=== PATIENT | male | born 1955 | race Caucasian/White ===

== ENCOUNTER 2024-04-06 08:52 | Outpatient (OUT) | payer OTHER, SELFPAY ==
--- NOTE | 2024-04-06 09:30 | V.VEINS.HP ---
Vital Signs 04/06/24 09:49 Height 5 ft 10 in Weight 122.47 kg BMI 38.7 BP 120/54 BP Location Left Brachial BP Position Sitting BP Cuff Size Adult BP Source Manual Cuff Respiration 20 Pulse 77 Pulse Source Monitor Pulse Oximetry (%) 96 Oxygen Delivery Method Room Air Comment The patient's blood pressure is elevated. Varicose Veins Patient in this day for comprehensive exam for painful bilateral varicose veins. Pain exacerbated by long periods of walking. Swelling in right leg greater than left leg. Patient has worn compression stockings for the past 2 years. 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 Guillermo Smith MD personally performed the services described in this documentation, as scribed by Destini Carlin RN in my presence and it is both accurate and complete. IDestini RN, am scribing for, and in the presence of, Dr. Guillermo Gurrola and in the presence of the patient. thigh: bilateral, knee: bilateral, calf: bilateral, ankle: bilateral and delaney: bilateral aching and dull 3 2 years Worsened in recent months: Yes walking elevating extremities and compression stockings Reports heaviness, restless legs, limb pain, edema and leg edema History of lower extremity trauma: No Superficial thrombophlebitis: No Family history of varicose veins: no Has patient had previous lower extremity venous surgery: No Patient has previously received the following treatment(s) for lower extremity varicose veins: Reports none Does patient have a history of : not applicable Does patient intend to have future pregnancies: not applicable Has patient had lower extremity venous scan with relux testing: Yes Support hose used: Yes Problems walking or doing physical activity: Yes How does it affect you: unable to walk long distances Do you walk much: No Do you stand much: Yes Medication compliance: good Review of Systems ROS Narrative Guillermo Smith MD personally performed the services described in this documentation, as scribed by Destini Carlin RN in my presence and it is both accurate and complete. Destini Smith RN, am scribing for, and in the presence of, Dr. Guillermo Gurrola and in the presence of the patient. Status of ROS 10 or more systems reviewed and unremarkable except as noted in history and below Cardiovascular Reports: edema and swelling of feet/ankles Musculoskeletal Reports: extremity pain, extremity swelling, joint pain, joint swelling and muscle cramps Integumentary/Breast Reports: rash, itching and redness PFSH PFS Medical History (Updated 04/06/24 @ 10:03 by Destini Cralin, RN) Hemorrhoids, internal ?K64.8 - Other hemorrhoids (ICD-10) Pain due to varicose veins of both lower extremities ?I83.813 - Varicose veins of bilateral lower extremities with pain (ICD-10) Tinea pedis ?B35.3 - Tinea pedis (ICD-10) Sleep apnea ?G47.30 - Sleep apnea, unspecified (ICD-10) Restless leg ?G25.81 - Restless legs syndrome (ICD-10) Onychomycosis ?B35.1 - Tinea unguium (ICD-10) Obesity ?E66.9 - Obesity, unspecified (ICD-10) Left ventricular failure ?I50.1 - Left ventricular failure, unspecified (ICD-10) Hypokalemia ?E87.6 - Hypokalemia (ICD-10) Hyperglycemia ?R73.9 - Hyperglycemia, unspecified (ICD-10) Hyperlipemia ?E78.5 - Hyperlipidemia, unspecified (ICD-10) Accelerated essential hypertension ?I10 - Essential (primary) hypertension (ICD-10) Elevated PSA ?R97.20 - Elevated prostate specific antigen [PSA] (ICD-10) Cardiomyopathy ?I42.9 - Cardiomyopathy, unspecified (ICD-10) Anxiety ?F41.9 - Anxiety disorder, unspecified (ICD-10) Surgical History (Updated 04/06/24 @ 10:03 by Destini Carlin, SHUKRI) S/P TURP ?Z90.79 - Acquired absence of other genital organ(s) (ICD-10) Family History (Updated 04/06/24 @ 10:04 by Destini Carlin, RN) Other Family history of CHF (congestive heart failure) Family history of cancer Family history of hypertension Family history of myocardial infarction Social History (Updated 04/06/24 @ 10:05 by Destini Carlin, RN) Within the past year, how often did you have a drink containing alcohol: never Score interpretation: A score less than 4 is consistent with normal alcohol consumption. Smoking status: Never smoker Non-prescribed substance use: denies use Meds Home Medications and Allergies Home Medications ?Medication ?Instructions ?Recorded ?Confirmed ?Type amiloride 5 mg tablet 5 mg PO DAILY 04/06/24 04/06/24 History amlodipine 10 mg tablet 10 mg PO DAILY 04/06/24 04/06/24 History aspirin 325 mg tablet 325 mg PO DAILY 04/06/24 04/06/24 History carvedilol 25 mg tablet (Coreg) 25 mg PO BID 04/06/24 04/06/24 History doxazosin 4 mg tablet (Cardura) 4 mg PO QPM 04/06/24 04/06/24 History finasteride 5 mg tablet 5 mg PO DAILY 04/06/24 04/06/24 History hydralazine .Route DAILY 04/06/24 History hydrochlorothiazide 25 mg tablet 25 mg PO DAILY 04/06/24 04/06/24 History losartan 100 mg tablet 100 mg PO DAILY 04/06/24 04/06/24 History lovastatin 30 mg PO QAM 04/06/24 04/06/24 History montelukast 10 mg tablet 10 mg PO DAILY 04/06/24 04/06/24 History niacin 500 mg capsule,extended 500 mg PO DAILY 04/06/24 04/06/24 History release paroxetine HCl 20 mg tablet 20 mg PO DAILY 04/06/24 04/06/24 History potassium chloride 10 mEq 10 meq PO DAILY 04/06/24 04/06/24 History tablet,extended release (Klor-Con) Allergies Allergy/AdvReac Type Severity Reaction Status Date / Time clarithromycin Allergy Unknown Unknown Verified 04/06/24 09:39 Exam Narrative Exam Narrative: Guillermo Smith MD personally performed the services described in this documentation, as scribed by Destini Carlin RN in my presence and it is both accurate and complete. IDestini RN, am scribing for, and in the presence of, Dr. Guillermo Gurrola and in the presence of the patient. Constitutional Documenting provider has reviewed patient's vital signs: yes Common normals: oriented x3 Nutritional appearance: overweight Lymph Lymphatic: no lymphedema noted Cardio Peripheral pulses: posterior tibial pulses present and dorsalis pedis pulses present Extremity General: calf tenderness, edema and other findings Right lower extremity: lower leg Right lower leg: inspection and palpation Left lower extremity: lower leg Left lower leg: inspection and palpation Neuro Common normals: oriented x3 Assessment and Plan Assessment and Plan (1) Pain due to varicose veins of both lower extremities: Plan Explained vein anatomy and physiology to patient.? Explained the development of varicose veins to patient.? Explained varicose vein treatments to patient, including laser ablation, microfoam chemical ablation (Varithena), injection sclerotherapy and microphlebectomy.? Explained potential risks and benefits of varicose vein treatments. Patient verbalizes understanding and wants to pursue varicose vein treatment. Patient also agrees to purchase bilateral thigh high compression stockings and wear them as educated.? Patient also educated on exercise and rest elevation of bilateral legs. DVT noted on ultrasound. Spoke with Bianca from Dr. Elyssa Christine's office (stitcher tape controlled machine for patients PCP Dr. Liliana Waller) and updated her on patients DVT find today. Bianca states she will talk to Dr. Christine and call patient later today for care plan. Educated patient on worsening symptoms of DVT and when to seek immediate medical attention. Patient verbalizes understanding. Scheduled to return on? 04/20/24 for ultrasound results and consult with Dr Gurrola. Guillermo Smith MD personally performed the services described in this documentation, as scribed by Destini Carlin RN in my presence and it is both accurate and complete. Destini Smith RN, am scribing for, and in the presence of, Dr. Guillermo Gurrola and in the presence of the patient.
--- NOTE | 2024-04-06 09:32 | VEIN_ITS ---
Patient Name: RACHEL NGUYEN MR#: [id number] : 1955 Exam Date: 04/06/2024 Ordering Doctor: DR HENNY JACK D.P.M. RADIOLOGY REPORT PROCEDURE: VC EXT VENOUS REFLUX HU LMTD COMPARISON: None. INDICATIONS: Pain due to varicose veins of bilateral legs I83.813 TECHNIQUE: Duplex imaging of the lower extremity to assess the deep and superficial venous system for the presence of deep or superficial venous incompetence and to document the location and severity of disease. The study includes evaluation of the great saphenous vein (GSV), anterior accessory saphenous vein (AASV) and small saphenous vein (SSV). Patient scanned in reverse Trendelenburg and standing. FINDINGS: RIGHT LOWER EXTREMITY: Saphenofemoral Junction Reflux: Yes 12.9mm 3.3 sec GSV: Diam (mm) Reflux/ Time (sec) Proximal Thigh 9.4 Yes 2.1 Mid Thigh 8.9 Yes 4.4 Distal Thigh 6.9 Yes 4.4 Prox Calf 6.7 Yes 2.4 Mid Calf 5.0 No Saphenopopliteal Junction Reflux: 5.7mm Yes 0.9 SSV: Proximal Calf 6.6 Yes 3.9 Mid Calf 4.9 Yes 0.3 AASV: Not present Proximal Thigh Mid Thigh Distal Thigh Thrombi: Subacute thrombus in gastroc vein in approximately a 3 cm segment. Compressibility: Partial compression of gastroc vein. Flow: Mild to moderate deep venous reflux. Preforator: Prox/medial lower leg 5.9mm with 0.7s reflux. Mid medial lower leg 4.7 mm with 3.0s reflux. Tech Note: Incompetent varicose vein proximal medial lower leg measures 5.7 mm with 2.5s reflux. Varicose vein distal medial lower leg measures 4.3mm with 0.9s reflux. Varicose vein proximal medial lower leg measures 5.0 mm with 0.7s reflux. LEFT LOWER EXTREMITY: Saphenofemoral Junction Reflux: Yes 12.5 mm 2.2 sec GSV: Diam (mm) Reflux/Time (sec) Proximal Thigh 12.3 Yes 1.2 Mid Thigh 7.3 Yes 2.5 Distal Thigh 7.7 Yes 3.9 Prox Calf 6.3 No Mid Calf 4.7 Yes 1.0 Saphenopopliteal Junction Relux: 5.6 mm Yes 1.2 SSV: Proximal Calf 8.4 Yes 0.5 Mid Calf 7.9 Yes 0.5 AASV: Proximal Thigh 5.9 Yes 1.8 Mid Thigh 2.3 No Distal Thigh Thrombi: No acute or chronic thrombus. Compressibility: Normal. Flow: Mild to moderate deep venous reflux. Visually Impaired Teacher: Mid posterior calf 6.4 mm with 2.0s reflux. Tech Note: Incompetent varicose vein proximal medial lower leg measures 5.7 mm with 3.6s reflux. Varicose vein distal medial lower leg measures 4.4 mm with 0.7s reflux. CONCLUSION: 1. Right leg abnormally dilated and incompetent great saphenous vein, small saphenous vein, and numerous branch saphenous varicosities. 2. Left leg abnormally dilated and incompetent great saphenous vein, small saphenous vein, anterior accessory saphenous vein, and associated branch saphenous varicosities. 3. Subacute short segment of thrombus within right gastrocnemius vein. 4. Consultation for endovenous ablation is recommended. Dictated by: Rahul Pedro M.D. on 04/10/2024 at 13:44 Approved by: Rahul Pedro M.D. on 04/10/2024 at 13:52
[2024-04-06 09:49] VITALS: BP 120/54; PULSE 77; O2SAT 96; BMI 38.7
--- NOTE | 2024-04-06 10:58 | P.DS_ITS ---
Discharge Plan Discharge Disposition: Home, Self-Care Outpatient Diagnostics: VC Facility EST Comprehensive (Routine) Timeframe: 2 Weeks Facility: [facility] - Location: [facility] Ordered By: Guillermo Gurrola Follow Up Appointments: 04/20/24 f/u with physician Plan of Treatment: DVT management by Dr. Elyssa Christine. Print Language: Uzbek Discharge Date/Time: 04/06/24 10:58
== END 2024-04-06 10:58 | disposition home or self-care (01) ==
LOC: VC 08:52
PROVIDERS: PCP Podiatrist Foot & Ankle Surgery; Visit Provider Podiatrist Foot & Ankle Surgery
DX: I83.813 Varicose veins of bilateral lower extremities with pain (principal); I87.2 Venous insufficiency (chronic) (peripheral)
CPT/HCPCS: 93970

== ENCOUNTER 2024-04-20 08:48 | Outpatient (OUT) | payer OTHER, SELFPAY ==
--- NOTE | 2024-04-20 08:51 | VEIN_ITS ---
Patient Name: RACHEL NGUYEN MR#: [id number] : 1955 Exam Date: 04/20/2024 Ordering Doctor: DR GUILLERMO GURROLA M.D. RADIOLOGY REPORT PROCEDURE: [facility] VEIN C[facility] - OFFICE VISIT INITIAL COMPARISON: None. PROGRESS NOTES: 69-year-old male who presents with a long history of lower extremity pain and swelling, significantly increased in the past 2 years. 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 The patient describes lower extremity pain as moderate, progressing over the course of the day , the pain is a heaviness and achiness which is partially relieved by rest, leg elevation and compression stockings which she has worn for approximately 2 years. The patient denies any signs and symptoms to suggest arterial ischemia. The patient describes a family history significant for congestive heart failure, cancer, hypertension and myocardial infarction. Patient's past medical history significant for hemorrhoids, sleep apnea, restless leg, obesity a, left ventricular failure, hyperkalemia, hyperglycemia, hyperlipidemia, hypertension and cardiomyopathy. The patient's heart conditions are well controlled and he is seen by Dr. Ontiveros. The patient does not drink alcohol. The patient has never smoked. No substance abuse. No history of deep venous thrombus or pulmonary embolus. See separate history and physical for medication list. No prior treatment for varicose or spider veins. Nursing notes were reviewed. After history and physical exam I discussed at length the pathophysiology of venous hypertension and possible treatments, therapies and strategies available. We discussed at length the importance of elevating the lower extremities above the level of the heart, increased physical activity and compression stocking use. We discussed alternatives including conservative therapy with 20-30 or even 30-40 mm compression stockings. We discussed surgical alternatives of ligation stripping and phlebectomy. We discussed intravenous laser ablation, micro foam chemical ablation at length. Risks benefits and alternatives were discussed with the patient. I did discuss with the patient that his symptoms were likely multifactorial. I would expect improvement with successful treatment of his veins however likely not complete resolution Ultrasound venous reflux study performed April 10, 2024 was discussed at length with the patient. The report demonstrates severe bilateral great saphenous vein venous insufficiency with dilatation and saphenofemoral junction reflux. Severe right and mild to moderate left small saphenous vein venous insufficiency with saphenopopliteal junction reflux. Moderate venous insufficiency left anterior accessory saphenous vein. Bilateral [id number] deep vein reflux. Bilateral incompetent perforating veins. Extensive bilateral varicose veins. PHYSICAL EXAM: The right leg demonstrates severe subcutaneous edema with pitting edema of the lower leg ankle and foot below the knee. Some scattered hemosiderin staining is observed. No significant varicose or reticular veins The left leg demonstrates severe subcutaneous edema with pitting edema of the lower leg, ankle and foot below the knee. Some scattered hemosiderin staining is observed. No significant varicose or reticular veins Both thighs, legs and feet were symmetrically warm to the touch. Good posterior tibial and dorsalis pedis pulses were present bilaterally. VEIN/VC Facility EST Comprehensive IMPRESSION: 1. Bilateral great saphenous, right small saphenous and left anterior accessory saphenous vein venous insufficiency with dilatation and associated saphenofemoral/saphenopopliteal junction reflux 2. Bilateral lower extremity varicose veins as well as deep vein reflux 3. Bilateral severe lower extremity subcutaneous edema 4. No definite flow significant arterial disease 5. CEAP: C4a, Ep, As, Pr PLAN: 1. Endovenous laser ablation right great saphenous vein followed by left great saphenous vein followed by right small saphenous vein followed by left anterior accessory saphenous vein 2. Possible intravenous laser ablation of incompetent perforating veins 3. Micro foam chemical ablation bilateral incompetent varicose veins 4. Long-term use of bilateral 20-30 mm compression stockings for deep vein reflux and subcutaneous edema 5. Leg elevation and increased physical activity/weight loss for symptomatic relief 6. Nurse notes, history and physical were reviewed and confirmed, see attached forms. The nurse was present throughout the physical exam and consultation Dictated by: Guillermo Gurrola MD on 04/20/2024 at 11:14 Approved by: Guillermo Gurrola MD on 04/20/2024 at 11:23
--- NOTE | 2024-04-20 09:24 | V.VEINS.HP ---
Vital Signs 04/20/24 09:25 BP 120/64 BP Location Left Brachial BP Position Sitting BP Cuff Size Adult BP Source Manual Cuff Respiration 18 Pulse 70 Pulse Source Monitor Pulse Oximetry (%) 96 Oxygen Delivery Method Room Air Comment The patient's blood pressure is elevated. Varicose Veins Patient in this day for comprehensive exam with physician for painful bilateral varicose veins. Pain exacerbated by long periods of walking. Swelling in right leg greater than left leg. Patient has worn compression stockings for the past 2 years. 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 Guillermo Smith MD personally performed the services described in this documentation, as scribed by Destini Carlin RN in my presence and it is both accurate and complete. IDestini RN, am scribing for, and in the presence of, Dr. Guillermo Gurrola and in the presence of the patient. thigh: bilateral, knee: bilateral, calf: bilateral, ankle: bilateral and delaney: bilateral aching and dull 3 2 years Worsened in recent months: Yes walking elevating extremities and compression stockings Reports heaviness, restless legs, limb pain, edema and leg edema History of lower extremity trauma: No Superficial thrombophlebitis: No Family history of varicose veins: no Has patient had previous lower extremity venous surgery: No Patient has previously received the following treatment(s) for lower extremity varicose veins: Reports none Does patient have a history of : not applicable Does patient intend to have future pregnancies: not applicable Has patient had lower extremity venous scan with relux testing: Yes Support hose used: Yes Problems walking or doing physical activity: Yes How does it affect you: unable to walk long distances Do you walk much: No Do you stand much: Yes Medication compliance: good Review of Systems ROS Narrative Guillermo Smith MD personally performed the services described in this documentation, as scribed by Destini Carlin RN in my presence and it is both accurate and complete. Destini Smith RN, am scribing for, and in the presence of, Dr. Guillermo Gurrola and in the presence of the patient. Status of ROS 10 or more systems reviewed and unremarkable except as noted in history and below Cardiovascular Reports: edema and swelling of feet/ankles Musculoskeletal Reports: extremity pain, extremity swelling, joint pain, joint swelling and muscle cramps Integumentary/Breast Reports: rash, itching and redness PFSH PFSH Medical History (Updated 04/06/24 @ 10:03 by Destini Carlin, RN) Hemorrhoids, internal ?K64.8 - Other hemorrhoids (ICD-10) Pain due to varicose veins of both lower extremities ?I83.813 - Varicose veins of bilateral lower extremities with pain (ICD-10) Tinea pedis ?B35.3 - Tinea pedis (ICD-10) Sleep apnea ?G47.30 - Sleep apnea, unspecified (ICD-10) Restless leg ?G25.81 - Restless legs syndrome (ICD-10) Onychomycosis ?B35.1 - Tinea unguium (ICD-10) Obesity ?E66.9 - Obesity, unspecified (ICD-10) Left ventricular failure ?I50.1 - Left ventricular failure, unspecified (ICD-10) Hypokalemia ?E87.6 - Hypokalemia (ICD-10) Hyperglycemia ?R73.9 - Hyperglycemia, unspecified (ICD-10) Hyperlipemia ?E78.5 - Hyperlipidemia, unspecified (ICD-10) Accelerated essential hypertension ?I10 - Essential (primary) hypertension (ICD-10) Elevated PSA ?R97.20 - Elevated prostate specific antigen [PSA] (ICD-10) Cardiomyopathy ?I42.9 - Cardiomyopathy, unspecified (ICD-10) Anxiety ?F41.9 - Anxiety disorder, unspecified (ICD-10) Surgical History (Updated 04/06/24 @ 10:03 by Destini Carlin, SHUKRI) S/P TURP ?Z90.79 - Acquired absence of other genital organ(s) (ICD-10) Family History (Updated 04/06/24 @ 10:04 by Destini Carlin, RN) Other Family history of CHF (congestive heart failure) Family history of cancer Family history of hypertension Family history of myocardial infarction Social History (Updated 04/06/24 @ 10:05 by Destini Carlin, RN) Within the past year, how often did you have a drink containing alcohol: never Score interpretation: A score less than 4 is consistent with normal alcohol consumption. Smoking status: Never smoker Non-prescribed substance use: denies use Meds Home Medications and Allergies Home Medications ?Medication ?Instructions ?Recorded ?Confirmed ?Type amiloride 5 mg tablet 5 mg PO DAILY 04/06/24 04/06/24 History amlodipine 10 mg tablet 10 mg PO DAILY 04/06/24 04/06/24 History aspirin 325 mg tablet 325 mg PO DAILY 04/06/24 04/06/24 History carvedilol 25 mg tablet (Coreg) 25 mg PO BID 04/06/24 04/06/24 History doxazosin 4 mg tablet (Cardura) 4 mg PO QPM 04/06/24 04/06/24 History finasteride 5 mg tablet 5 mg PO DAILY 04/06/24 04/06/24 History hydralazine .Route DAILY 04/06/24 History hydrochlorothiazide 25 mg tablet 25 mg PO DAILY 04/06/24 04/06/24 History losartan 100 mg tablet 100 mg PO DAILY 04/06/24 04/06/24 History lovastatin 30 mg PO QAM 04/06/24 04/06/24 History montelukast 10 mg tablet 10 mg PO DAILY 04/06/24 04/06/24 History niacin 500 mg capsule,extended 500 mg PO DAILY 04/06/24 04/06/24 History release paroxetine HCl 20 mg tablet 20 mg PO DAILY 04/06/24 04/06/24 History potassium chloride 10 mEq 10 meq PO DAILY 04/06/24 04/06/24 History tablet,extended release (Klor-Con) Allergies Allergy/AdvReac Type Severity Reaction Status Date / Time clarithromycin Allergy Unknown Unknown Verified 04/06/24 09:39 Exam Narrative Exam Narrative: IGuillermo MD personally performed the services described in this documentation, as scribed by Destini Carlin RN in my presence and it is both accurate and complete. IDestini RN, am scribing for, and in the presence of, Dr. Guillermo Gurrola and in the presence of the patient. Constitutional Documenting provider has reviewed patient's vital signs: yes Common normals: oriented x3 Nutritional appearance: overweight Lymph Lymphatic: no lymphedema noted Cardio Peripheral pulses: posterior tibial pulses present and dorsalis pedis pulses present Extremity General: calf tenderness, edema and other findings Right lower extremity: lower leg Right lower leg: inspection and palpation Left lower extremity: lower leg Left lower leg: inspection and palpation Neuro Common normals: oriented x3 Assessment and Plan Assessment and Plan Plan Explained vein anatomy and physiology to patient. Explained the development of varicose veins to patient.? Explained varicose vein treatments to patient, including laser ablation, microfoam chemical ablation (Varithena), injection sclerotherapy and microphlebectomy.? Explained potential risks and benefits of varicose vein treatments.? Patient verbalizes understanding and wants to pursue varicose vein treatment.? Dr. Gurrola examines patient and reviews results of bilateral leg reflux u/s.? Patient and Dr. Gurrola creates a plan of care.?Plan is EVLT x4 starting with right GSV then bilateral microfoam chemical ablation. Patient also agrees to purchase bilateral thigh high compression stockings and wear them as educated.? Patient also educated on exercise and rest elevation of bilateral legs. Will call patient to scheduled when approved by insurance. I, Guillermo Gurrola MD personally performed the services described in this documentation, as scribed by Destini Carlin RN in my presence and it is both accurate and complete. I, Destini Carlin RN, am scribing for, and in the presence of, Dr. Guillermo Gurrola and in the presence of the patient.
[2024-04-20 09:25] VITALS: BP 120/64; PULSE 70; O2SAT 96
--- NOTE | 2024-04-20 09:40 | W.VEIN ---
Discharge Plan Discharge Disposition: Home, Self-Care Discharge Medications: No Action amiloride 5 mg tablet 5 mg PO DAILY amlodipine 10 mg tablet 10 mg PO DAILY aspirin 325 mg tablet 325 mg PO DAILY carvedilol [Coreg] 25 mg tablet 25 mg PO BID Rx Instructions: must administer with a meal/food doxazosin [Cardura] 4 mg tablet 4 mg PO QPM finasteride 5 mg tablet 5 mg PO DAILY hydralazine .Route DAILY hydrochlorothiazide 25 mg tablet 25 mg PO DAILY losartan 100 mg tablet 100 mg PO DAILY lovastatin 30 mg PO QAM montelukast 10 mg tablet 10 mg PO DAILY niacin 500 mg capsule, extended release 500 mg PO DAILY paroxetine HCl 20 mg tablet 20 mg PO DAILY potassium chloride [Klor-Con 10] 10 mEq tablet extended release 10 meq PO DAILY Follow Up Appointments: Will call patient to schedule Print Language: Japanese Discharge Date/Time: 04/20/24 09:42
--- NOTE | 2024-04-20 09:43 | V.VEINS.HP ---
Vital Signs 04/20/24 09:25 BP 120/64 BP Location Left Brachial BP Position Sitting BP Cuff Size Adult BP Source Manual Cuff Respiration 18 Pulse 70 Pulse Source Monitor Pulse Oximetry (%) 96 Oxygen Delivery Method Room Air Comment The patient's blood pressure is elevated. [facility] Medical History (Updated 04/06/24 @ 10:03 by Destini Carlin, RN) Hemorrhoids, internal ?K64.8 - Other hemorrhoids (ICD-10) Pain due to varicose veins of both lower extremities ?I83.813 - Varicose veins of bilateral lower extremities with pain (ICD-10) Tinea pedis ?B35.3 - Tinea pedis (ICD-10) Sleep apnea ?G47.30 - Sleep apnea, unspecified (ICD-10) Restless leg ?G25.81 - Restless legs syndrome (ICD-10) Onychomycosis ?B35.1 - Tinea unguium (ICD-10) Obesity ?E66.9 - Obesity, unspecified (ICD-10) Left ventricular failure ?I50.1 - Left ventricular failure, unspecified (ICD-10) Hypokalemia ?E87.6 - Hypokalemia (ICD-10) Hyperglycemia ?R73.9 - Hyperglycemia, unspecified (ICD-10) Hyperlipemia ?E78.5 - Hyperlipidemia, unspecified (ICD-10) Accelerated essential hypertension ?I10 - Essential (primary) hypertension (ICD-10) Elevated PSA ?R97.20 - Elevated prostate specific antigen [PSA] (ICD-10) Cardiomyopathy ?I42.9 - Cardiomyopathy, unspecified (ICD-10) Anxiety ?F41.9 - Anxiety disorder, unspecified (ICD-10) Surgical History (Updated 04/06/24 @ 10:03 by Destini Carlin, RN) S/P TURP ?Z90.79 - Acquired absence of other genital organ(s) (ICD-10) Family History (Updated 04/06/24 @ 10:04 by Destini Carlin, RN) Other Family history of CHF (congestive heart failure) Family history of cancer Family history of hypertension Family history of myocardial infarction Social History (Updated 04/06/24 @ 10:05 by Destini Carlin, RN) Within the past year, how often did you have a drink containing alcohol: never Score interpretation: A score less than 4 is consistent with normal alcohol consumption. Smoking status: Never smoker Non-prescribed substance use: denies use Meds Home Medications and Allergies Home Medications ?Medication ?Instructions ?Recorded ?Confirmed ?Type amiloride 5 mg tablet 5 mg PO DAILY 04/06/24 04/06/24 History amlodipine 10 mg tablet 10 mg PO DAILY 04/06/24 04/06/24 History aspirin 325 mg tablet 325 mg PO DAILY 04/06/24 04/06/24 History carvedilol 25 mg tablet (Coreg) 25 mg PO BID 04/06/24 04/06/24 History doxazosin 4 mg tablet (Cardura) 4 mg PO QPM 04/06/24 04/06/24 History finasteride 5 mg tablet 5 mg PO DAILY 04/06/24 04/06/24 History hydralazine .Route DAILY 04/06/24 History hydrochlorothiazide 25 mg tablet 25 mg PO DAILY 04/06/24 04/06/24 History losartan 100 mg tablet 100 mg PO DAILY 04/06/24 04/06/24 History lovastatin 30 mg PO QAM 04/06/24 04/06/24 History montelukast 10 mg tablet 10 mg PO DAILY 04/06/24 04/06/24 History niacin 500 mg capsule,extended 500 mg PO DAILY 04/06/24 04/06/24 History release paroxetine HCl 20 mg tablet 20 mg PO DAILY 04/06/24 04/06/24 History potassium chloride 10 mEq 10 meq PO DAILY 04/06/24 04/06/24 History tablet,extended release (Klor-Con) Allergies Allergy/AdvReac Type Severity Reaction Status Date / Time clarithromycin Allergy Unknown Unknown Verified 04/06/24 09:39 Exam Constitutional Vital Signs, click to edit/add: Last Vital Signs Pulse 70 04/20/24 09:25 Resp 18 04/20/24 09:25 BP 120/64 04/20/24 09:25 Pulse Ox 96 04/20/24 09:25 Assessment and Plan Assessment and Plan Plan Explained vein anatomy and physiology to patient. Explained the development of varicose veins to patient.? Explained varicose vein treatments to patient, including laser ablation, microfoam chemical ablation (Varithena), injection sclerotherapy and microphlebectomy.? Explained potential risks and benefits of varicose vein treatments.? Patient verbalizes understanding and wants to pursue varicose vein treatment.? Dr. Gurrola examines patient and reviews results of bilateral leg reflux u/s.? Patient and Dr. Gurrola creates a plan of care.?Plan is EVLT x4 starting with right GSV then bilateral microfoam chemical ablation. Patient also agrees to purchase bilateral thigh high compression stockings and wear them as educated.? Patient also educated on exercise and rest elevation of bilateral legs. Will call patient to scheduled when approved by insurance. I, Guillermo Gurrola MD personally performed the services described in this documentation, as scribed by Destini Carlin RN in my presence and it is both accurate and complete. I, Destini Carlin RN, am scribing for, and in the presence of, Dr. Guillermo Gurrola and in the presence of the patient.
--- NOTE | 2024-04-20 09:43 | W.VEIN ---
Discharge Plan Discharge Disposition: Home, Self-Care Outpatient Diagnostics: VC Endovenous Ablation 1VeinRT (Routine) Timeframe: 2 Months Facility: [facility] - Location[facility] Ordered By: Guillermo Gurrola Follow Up Appointments: Will call patient to schedule Print Language: Portuguese Discharge Date/Time: 04/20/24 09:42
--- NOTE | 2024-04-20 09:47 | VEINCLINIC_ITS ---
Vital Signs 04/20/24 09:25 04/20/24 09:44 Height 5 ft 10 in Weight 122 kg BP 120/64 BP Location Left Brachial BP Position Sitting BP Cuff Size Adult BP Source Manual Cuff Respiration 18 Pulse 70 Pulse Source Monitor Pulse Oximetry (%) 96 Oxygen Delivery Method Room Air Comment The patient's blood pressure is elevated. Varicose Veins Patient in this day for comprehensive exam with physician for painful bilateral varicose veins. Pain exacerbated by long periods of walking. Swelling in right leg greater than left leg. Patient has worn compression stockings for the past 2 years. 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 Guillermo Smith MD personally performed the services described in this documentation, as scribed by Destini Carlin RN in my presence and it is both accurate and complete. IDestini RN, am scribing for, and in the presence of, Dr. Guillermo Gurrola and in the presence of the patient. thigh: bilateral, knee: bilateral, calf: bilateral, ankle: bilateral and delaney: bilateral aching and dull 3 2 years Worsened in recent months: Yes walking elevating extremities and compression stockings Reports heaviness, restless legs, limb pain, edema and leg edema History of lower extremity trauma: No Superficial thrombophlebitis: No Family history of varicose veins: no Has patient had previous lower extremity venous surgery: No Patient has previously received the following treatment(s) for lower extremity varicose veins: Reports none Does patient have a history of : not applicable Does patient intend to have future pregnancies: not applicable Has patient had lower extremity venous scan with relux testing: Yes Support hose used: Yes Problems walking or doing physical activity: Yes How does it affect you: unable to walk long distances Do you walk much: No Do you stand much: Yes Medication compliance: good Review of Systems ROS Narrative Guillermo Smith MD personally performed the services described in this documentation, as scribed by Destini Carlin RN in my presence and it is both accurate and complete. Destini Smith RN, am scribing for, and in the presence of, Dr. Guillermo Gurrola and in the presence of the patient. Status of ROS 10 or more systems reviewed and unremark able except as noted in history and below Cardiovascular Reports: edema and swelling of feet/ankles Musculoskeletal Reports: extremity pain, extremity swelling, joint pain, joint swelling and muscle cramps Integumentary/Breast Reports: rash, itching and redness [facility] Medical History (Updated 04/06/24 @ 10:03 by Destini Carlin, RN) Hemorrhoids, internal ?K64.8 - Other hemorrhoids (ICD-10) Pain due to varicose veins of both lower extremities ?I83.813 - Varicose veins of bilateral lower extremities with pain (ICD-10) Tinea pedis ?B35.3 - Tinea pedis (ICD-10) Sleep apnea ?G47.30 - Sleep apnea, unspecified (ICD-10) Restless leg ?G25.81 - Restless legs syndrome (ICD-10) Onychomycosis ?B35.1 - Tinea unguium (ICD-10) Obesity ?E66.9 - Obesity, unspecified (ICD-10) Left ventricular failure ?I50.1 - Left ventricular failure, unspecified (ICD-10) Hypokalemia ?E87.6 - Hypokalemia (ICD-10) Hyperglycemia ?R73.9 - Hyperglycemia, unspecified (ICD-10) Hyperlipemia ?E78.5 - Hyperlipidemia, unspecified (ICD-10) Accelerated essential hypertension ?I10 - Essential (primary) hypertension (ICD-10) Elevated PSA ?R97.20 - Elevated prostate specific antigen [PSA] (ICD-10) Cardiomyopathy ?I42.9 - Cardiomyopathy, unspecified (ICD-10) Anxiety ?F41.9 - Anxiety disorder, unspecified (ICD-10) Surgical History (Updated 04/06/24 @ 10:03 by Destini Carlin, SHUKRI) S/P TURP ?Z90.79 - Acquired absence of other genital organ(s) (ICD-10) Family History (Updated 04/06/24 @ 10:04 by Destini Carlin, RN) Other Family history of CHF (congestive heart failure) Family history of cancer Family history of hypertension Family history of myocardial infarction Social History (Updated 04/06/24 @ 10:05 by Destini Carlin, RN) Within the past year, how often did you have a drink containing alcohol: never Score interpretation: A score less than 4 is consistent with normal alcohol consumption. Smoking status: Never smoker Non-prescribed substance use: denies use Meds Home Medications and Allergies Home Medications ?Medication ?Instructions ?Recorded ?Confirmed ?Type amiloride 5 mg tablet 5 mg PO DAILY 04/06/24 04/06/24 History amlodipine 10 mg tablet 10 mg PO DAILY 04/06/24 04/06/24 History aspirin 325 mg tablet 325 mg PO DAILY 04/06/24 04/06/24 History carvedilol 25 mg tablet (Coreg) 25 mg PO BID 04/06/24 04/06/24 History doxazosin 4 mg tablet (Cardura) 4 mg PO QPM 04/06/24 04/06/24 History finasteride 5 mg tablet 5 mg PO DAILY 04/06/24 04/06/24 History hydralazine .Route DAILY 04/06/24 History hydrochlorothiazide 25 mg tablet 25 mg PO DAILY 04/06/24 04/06/24 History losartan 100 mg tablet 100 mg PO DAILY 04/06/24 04/06/24 History lovastatin 30 mg PO QAM 04/06/24 04/06/24 History montelukast 10 mg tablet 10 mg PO DAILY 04/06/24 04/06/24 History niacin 500 mg capsule,extended 500 mg PO DAILY 04/06/24 04/06/24 History release paroxetine HCl 20 mg tablet 20 mg PO DAILY 04/06/24 04/06/24 History potassium chloride 10 mEq 10 meq PO DAILY 04/06/24 04/06/24 History tablet,extended release (Klor-Con) Allergies Allergy/AdvReac Type Severity Reaction Status Date / Time clarithromycin Allergy Unknown Unknown Verified 04/06/24 09:39 Exam Narrative Exam Narrative: IGuillermo MD personally performed the services described in this documentation, as scribed by Destini Carlin RN in my presence and it is both accurate and complete. Destini Smith RN, am scribing for, and in the presence of, Dr. Guillermo Gurrola and in the presence of the patient. Constitutional Vital Signs, click to edit/add: Last Vital Signs Pulse 70 04/20/24 09:25 Resp 18 04/20/24 09:25 BP 120/64 04/20/24 09:25 Pulse Ox 96 04/20/24 09:25 Documenting provider has reviewed patient's vital signs: yes Common normals: oriented x3 Nutritional appearance: overweight Lymph Lymphatic: no lymphedema noted Cardio Peripheral pulses: posterior tibial pulses present and dorsalis pedis pulses present Extremity General: calf tenderness, edema and other findings Right lower extremity: lower leg Right lower leg: inspection and palpation Left lower extremity: lower leg Left lower leg: inspection and palpation Neuro Common normals: oriented x3 Results Additional Findings Additional findings: Bilateral reflux venous ultrasound reveals Bilateral GSV, Right SSV, and left AASV venous insufficiency with dilation and reflux. Ultrasound also reveals subcutaneous edema. Assessment and Plan Assessment and Plan (1) Pain due to varicose veins of both lower extremities: Plan Explained vein anatomy and physiology to patient. Explained the development of varicose veins to patient.? Explained varicose vein treatments to patient, including laser ablation, microfoam chemical ablation (Varithena), injection sclerotherapy and microphlebectomy.? Explained potential risks and benefits of varicose vein treatments.? Patient verbalizes understanding and wants to pursue varicose vein treatment.? Dr. Gurrola examines patient and reviews results of bilateral leg reflux u/s.? Patient and Dr. Gurrola creates a plan of care.?Plan is EVLT x4 starting with right GSV then bilateral microfoam chemical ablation. Patient also agrees to purchase bilateral thigh high compression stockings and wear them as educated.? Patient also educated on exercise and rest elevation of bilateral legs. Will call patient to scheduled when approved by insurance. IGuillermo MD personally performed the services described in this documentation, as scribed by Destini Carlin RN in my presence and it is both accurate and complete. IDestini RN, am scribing for, and in the presence of, Dr. Guillermo Gurrola and in the presence of the patient.
== END 2024-04-20 09:42 | disposition home or self-care (01) ==
PROVIDERS: PCP Podiatrist Foot & Ankle Surgery; Visit Provider Podiatrist Foot & Ankle Surgery
DX: I83.813 Varicose veins of bilateral lower extremities with pain (principal)
CPT/HCPCS: G0463

== ENCOUNTER 2024-05-04 07:53 | Outpatient (OUT) | payer OTHER, SELFPAY ==
--- NOTE | 2024-05-03 09:18 | VEINCLINIC_ITS ---
Vital Signs 05/04/24 08:38 05/04/24 08:47 Height 5 ft 10 in Weight 122 kg BP 142/78 H BP Location Right Brachial BP Position Sitting BP Cuff Size Adult BP Source Automatic Cuff Respiration 18 Pulse 71 Pulse Source Monitor Pulse Oximetry (%) 98 Comment The patient's blood pressure is elevated. Varicose Veins Patient in this day for EVLT of right GSV Rahul Smith MD personally performed the services described in this documentation, as scribed by Gerald Lopez RN in my presence and it is both accurate and complete. Gerald Smith RN, am scribing for, and in the presence of, Dr. Rahul Pedro and in the presence of the patient. thigh: bilateral, knee: bilateral, calf: bilateral, ankle: bilateral and delaney: bilateral aching and dull 3 2 years Worsened in recent months: Yes walking elevating extremities and compression stockings Reports heaviness, restless legs, limb pain, edema and leg edema History of lower extremity trauma: No Superficial thrombophlebitis: No Family history of varicose veins: no Has patient had previous lower extremity venous surgery: No Patient has previously received the following treatment(s) for lower extremity varicose veins: Reports none Does patient have a history of : not applicable Does patient intend to have future pregnancies: not applicable Has patient had lower extremity venous scan with relux testing: Yes Support hose used: Yes Problems walking or doing physical activity: Yes How does it affect you: unable to walk long distances Do you walk much: No Do you stand much: Yes Medication compliance: good Review of Systems ROS Narrative Rahul Smith MD personally performed the services described in this documentation, as scribed by Gerald Lopez RN in my presence and it is both accurate and complete. Gerald Smith RN, am scribing for, and in the presence of, Dr. Rahul Pedro and in the presence of the patient. Status of ROS 10 or more systems reviewed and unremark able except as noted in history and below Cardiovascular Reports: edema and swelling of feet/ankles Musculoskeletal Reports: extremity pain, extremity swelling, joint pain, joint swelling and muscle cramps Integumentary/Breast Reports: rash, itching and redness PFSH PFSH Medical History (Updated 04/06/24 @ 10:03 by Destini Carlin RN) Hemorrhoids, internal ?K64.8 - Other hemorrhoids (ICD-10) Pain due to varicose veins of both lower extremities ?I83.813 - Varicose veins of bilateral lower extremities with pain (ICD-10) Tinea pedis ?B35.3 - Tinea pedis (ICD-10) Sleep apnea ?G47.30 - Sleep apnea, unspecified (ICD-10) Restless leg ?G25.81 - Restless legs syndrome (ICD-10) Onychomycosis ?B35.1 - Tinea unguium (ICD-10) Obesity ?E66.9 - Obesity, unspecified (ICD-10) Left ventricular failure ?I50.1 - Left ventricular failure, unspecified (ICD-10) Hypokalemia ?E87.6 - Hypokalemia (ICD-10) Hyperglycemia ?R73.9 - Hyperglycemia, unspecified (ICD-10) Hyperlipemia ?E78.5 - Hyperlipidemia, unspecified (ICD-10) Accelerated essential hypertension ?I10 - Essential (primary) hypertension (ICD-10) Elevated PSA ?R97.20 - Elevated prostate specific antigen [PSA] (ICD-10) Cardiomyopathy ?I42.9 - Cardiomyopathy, unspecified (ICD-10) Anxiety ?F41.9 - Anxiety disorder, unspecified (ICD-10) Surgical History (Updated 05/04/24 @ 08:41 by Gerald Lopez) Status post laser ablation of incompetent vein ?Z98.890 - Other specified postprocedural states (ICD-10) S/P TURP ?Z90.79 - Acquired absence of other genital organ(s) (ICD-10) Family History (Updated 04/06/24 @ 10:04 by Destini Carlin RN) Other Family history of CHF (congestive heart failure) Family history of cancer Family history of hypertension Family history of myocardial infarction Social History (Updated 04/06/24 @ 10:05 by Destini Carlin RN) Within the past year, how often did you have a drink containing alcohol: never Score interpretation: A score less than 4 is consistent with normal alcohol consumption. Smoking status: Never smoker Non-prescribed substance use: denies use Meds Home Medications and Allergies Home Medications ?Medication ?Instructions ?Recorded ?Confirmed ?Type amiloride 5 mg tablet 5 mg PO DAILY 04/06/24 04/06/24 History amlodipine 10 mg tablet 10 mg PO DAILY 04/06/24 04/06/24 History aspirin 325 mg tablet 325 mg PO DAILY 04/06/24 04/06/24 History carvedilol 25 mg tablet (Coreg) 25 mg PO BID 04/06/24 04/06/24 History doxazosin 4 mg tablet (Cardura) 4 mg PO QPM 04/06/24 04/06/24 History finasteride 5 mg tablet 5 mg PO DAILY 04/06/24 04/06/24 History hydralazine .Route DAILY 04/06/24 History hydrochlorothiazide 25 mg tablet 25 mg PO DAILY 04/06/24 04/06/24 History losartan 100 mg tablet 100 mg PO DAILY 04/06/24 04/06/24 History lovastatin 30 mg PO QAM 04/06/24 04/06/24 History montelukast 10 mg tablet 10 mg PO DAILY 04/06/24 04/06/24 History niacin 500 mg capsule,extended 500 mg PO DAILY 04/06/24 04/06/24 History release paroxetine HCl 20 mg tablet 20 mg PO DAILY 04/06/24 04/06/24 History potassium chloride 10 mEq 10 meq PO DAILY 04/06/24 04/06/24 History tablet,extended release (Klor-Con) apixaban 5 mg tablet (Eliquis) 5 mg PO BID 05/04/24 05/04/24 History Allergies Allergy/AdvReac Type Severity Reaction Status Date / Time clarithromycin Allergy Unknown Unknown Verified 04/06/24 09:39 Home Medications and Allergies Allergies Allergy/AdvReac Type Severity Reaction Status Date / Time clarithromycin Allergy Unknown Unknown Verified 04/06/24 09:39 Home Medications ?Medication ?Instructions ?Recorded ?Confirmed ?Type amiloride 5 mg tablet 5 mg PO DAILY 04/06/24 04/06/24 History amlodipine 10 mg tablet 10 mg PO DAILY 04/06/24 04/06/24 History aspirin 325 mg tablet 325 mg PO DAILY 04/06/24 04/06/24 History carvedilol 25 mg tablet (Coreg) 25 mg PO BID 04/06/24 04/06/24 History doxazosin 4 mg tablet (Cardura) 4 mg PO QPM 04/06/24 04/06/24 History finasteride 5 mg tablet 5 mg PO DAILY 04/06/24 04/06/24 History hydralazine .Route DAILY 04/06/24 History hydrochlorothiazide 25 mg tablet 25 mg PO DAILY 04/06/24 04/06/24 History losartan 100 mg tablet 100 mg PO DAILY 04/06/24 04/06/24 History lovastatin 30 mg PO QAM 04/06/24 04/06/24 History montelukast 10 mg tablet 10 mg PO DAILY 04/06/24 04/06/24 History niacin 500 mg capsule,extended 500 mg PO DAILY 04/06/24 04/06/24 History release paroxetine HCl 20 mg tablet 20 mg PO DAILY 04/06/24 04/06/24 History potassium chloride 10 mEq 10 meq PO DAILY 04/06/24 04/06/24 History tablet,extended release (Klor-Con) apixaban 5 mg tablet (Eliquis) 5 mg PO BID 05/04/24 05/04/24 History Home medications comment: Eliquis recently added Exam Narrative Exam Narrative: Rahul Smith MD personally performed the services described in this documentation, as scribed by Gerald Lopez RN in my presence and it is both accurate and complete. Gerald Smith RN, am scribing for, and in the presence of, Dr. Rahul Pedro and in the presence of the patient. Constitutional Vital Signs, click to edit/add: Last Vital Signs Pulse 70 04/20/24 09:25 Resp 18 04/20/24 09:25 BP 120/64 04/20/24 09:25 Pulse Ox 96 04/20/24 09:25 Documenting provider has reviewed patient's vital signs: yes Common normals: oriented x3 Nutritional appearance: overweight Lymph Lymphatic: no lymphedema noted Cardio Peripheral pulses: posterior tibial pulses present and dorsalis pedis pulses present Extremity General: calf tenderness, edema and other findings Right lower extremity: lower leg Right lower leg: inspection and palpation Left lower extremity: lower leg Left lower leg: inspection and palpation Neuro Common normals: oriented x3 Assessment and Plan Assessment and Plan (1) Pain due to varicose veins of both lower extremities: Plan f/u examination with physician along with right leg limited u/s Rahul Smith MD personally performed the services described in this documentation, as scribed by Gerald Lopez RN in my presence and it is both accurate and complete. I, Gerald Lopez RN, am scribing for, and in the presence of, Dr. Rahul Pedro and in the presence of the patient. Procedures Procedure Instructions Procedures Plan of care: Risks and benefits of the procedure were discussed at length and informed written consent was obtained.? Time-out completed for verification of correct patient, procedure and site.? Staff present during time-out: Gerald Lopez RN,? Rahul Pedro MD, Jane Farris [facility]. Time Out Time__841 Patient prepped and procedure performed in usual sterile fashion. Risk of injury related to use of Diode laser and/or laser devices__CR___ ? Serial number of laser used :? [id number] Control panel self test performed, electrical cords in good condition, floor is dry, basin of water available, fire extinguisher in close proximity_CR__ Polycarbonate goggles available and Laser warning signs outside of doors___CR__ Eye protection provided to patient and staff in room_CR___ Use of laser retardant drapes and dull blackened instruments as directed__CR___ Use of nonflammable prep solutions and use of saline soaked sponges to protect tissues as indicated _CR___ Length _68 cm Laser operated by _Dr. Pedro Physician verbal confirmation laser locked in place__CR__ Laser start time (date and time) __05/04/2024@_0858 Laser stop time(date and time) __05/04/2024@_0911 Burroughs _8.0___ Average laser use __4393 Joules Average laser use___549 seconds Pulse continuous ___CR_? Pulse intermittent ___ Amount of Tumescent used _350cc Evaluated patient for signs and symptoms of electrical injury __CR___ ? Skin clear at insertion site __CR___ Patient tolerated procedure well.? Right leg Coban dressing applied to access site.? Applied Right thigh high leg compression stocking. Will return on 05/11/2024 for right leg limited venous ultrasound and exam. IRahul MD personally performed the services described in this documentation, as scribed by Gerald Lopez RN in my presence and it is both accurate and complete. IGerald RN, am scribing for, and in the presence of, Dr. Rahul Pedro and in the presence of the patient.
--- NOTE | 2024-05-03 09:21 | W.VEIN ---
Discharge Plan Discharge Disposition: Home, Self-Care Outpatient Diagnostics: VC Facility EST LMTD (Routine) Timeframe: 2 Weeks Facility: [facility] - Location: [facility] Ordered By: Rahul Pedro VC EXT Venous RT LMTD (Routine) Timeframe: 2 Weeks Facility: [facility] - Location: Vein Center Ordered By: Rahul Pedro Follow Up Appointments: 05/11/2024 Plan of Treatment: f/u evaluation with physician along with right leg limited u/s Patient Instructions: Endovenous Ablation (DC) Print Language: Ma[place] Discharge Date/Time: 05/04/24 08:50
[2024-05-04] MEDS: LIDOCAINE HCL 1% 100 MG/10 ML MDV INJ (07:54)
[2024-05-04] MEDS: 0.9 % SODIUM CHLORIDE 500 ML, LIDOCAINE HCL 20 ML, SODIUM BICARBONATE 10 MEQ INJ (07:54)
--- NOTE | 2024-05-04 07:54 | VEIN_ITS ---
[address] [address] Patient Name: RACHEL NGUYEN MRN: [id number] date: 1955 Sex: M Assigned Patient Location: Current Patient Location: Accession/Order Number: [id number] Exam Date: 05/04/2024 08:05 Report Date: 05/04/2024 10:48 At the request of: LUIS MALIK Procedure: VC Endovenous Ablation 1VeinRT EXAMINATION: VC Endovenous Ablation 1VeinRT HISTORY: I83.813 - Varicose veins of bilateral lower extremities w... The risks and benefits of the procedure had been previously discussed, and were rediscussed at length. Informed written consent was obtained. Gerald Lopez RN and Jane Sprague RDMS assisted. Time out procedure was performed. The right lower extremity was prepared and draped in the usual sterile fashion to allow knee flexion in the sterile field. Duplex ultrasound probe was draped in a sterile cover, sterile transmission gel was used. Venous mapping was performed with the areas of dilation and large tributaries marked. The total length was 68 cm from the entry 3 cm above the ankle to 3 cm below the Saphenofemoral junction. The diameter of the right great saphenous vein ranged from 9.4 mm. A 30 gauge needle and 1% buffered lidocaine was used to anesthetize the entry site. A 4 mm incision was made with a scalpel and the saphenous vein was entered percutaneously under direct ultrasound guidance with a micropuncture set, a single stick was successful in gaining access. A micro-guide wire was inserted and the needle removed. A micro-set including a dilator was inserted over the microwire and the needle and dilator were removed. A guide wire was inserted through the micro-set and guided through the saphenous vein to the saphenofemoral junction. The dilator was removed and an introducer sheath was inserted over the wire until the end of the sheath entered the saphenofemoral junction. The dilator and wire were removed and the 600 micron fiber was introduced and placed and positioned so that it extended beyond the sheath and was 3 cm distal to the saphenofemoral or saphenopopliteal junction. Final position of the fiber was determined by ultrasound guidance and duplex imaging. Tumescent anesthetic was delivered by ultrasound guidance. 350 cc of fluid was delivered along the entire course of the saphenous vein. The solution consisted of 1000 cc of normal saline with 40 mL of 1% lidocaine and 20 mL of sodium bicarbonate. A final positioning check was made. The energy source was turned on by means of the foot pedal and the fiber and sheath were withdrawn. The total number of Joules delivered was 4393. The laser was active for 549 seconds under continuous pulse, average laser use of 8 J. Laser start time: 8:58 AM Laser stop time: 9:11 AM Date: 05/04/2024. A duplex ultrasound revealed compressibility and flow at the saphenofemoral junction immediately after the procedure. Hemostasis at the access site was achieved. The skin incision of the saphenous vein was closed with a 4 x 4. A compression stocking was applied. Postop instructions were given. A follow up appointment was recommended and scheduled. The patient tolerated the procedure well. Electronically authenticated by: MARY RATLIFF Date: 05/04/2024 10:48
--- OUTSIDE RECORDS SUMMARY | 2024-05-04 07:56 | XMS_ITS | CCD ---
Author Organization [facility] Care Team Providers Care Loom Setter Name Role Phone Mecca Nelsonaret Unavailable Unavailable Posola Danyell Unavailable Unavailable [facility] Unavailable Unavailable Mecca Nelsonaret Unavailable Unavailable Darius Nelsont Unavailable Unavailable Terri Santos Unavailable Unavailable Terri Santos Unavailable Chriss Marie Unavailable Unavailable Terri Santos Unavailable Unavailable Unavailable Terri Santos Primary Care Physician MD Terri Santos Primary Care Provider MD Luiz Morrison Attending Provider MD Burak Rangel Attending Provider Burak Rangel Unavailable MD Terri Santos Primary Care Provider MD Luiz Morrison Attending Provider [phone] Terri Santos DO Primary Care Provider Dr. Terri Santos Primary Care Unava ilable Weston, Dr. Delores Fajardo Referring Jessie vailable Ac, Dr. Delores Fajardo Attending Jessie vailable Weston, Dr. Delores Fajardo Attending Jessie vailable Dr. Terri Santos Primary Care Unava ilable Weston, Dr. Delores Fajardo Referring Jessie vailable Luiz Morrison Admitting Unavailable Luiz Morrison Attending Unavailable Allsop, Terri Primary Care Unavailable Luiz Morrison Admitting Unavailable MorrisonLuiz Attending Unavailable Allsop, Terri Primary Care Unavailable Luiz Morrison Admitting Unavailable MorrisonLuiz Attending Unavailable Allsop, Terri Primary Care Unavailable Burak Rangel Admitting Unavailable Burak Rangel Attending Unavailable Terri Santos Primary Care Unavailable MD Terri Santos Primary Care Provider MD Burak Rangel Attending Provider ALLSOP, TERRI Margarette Primary Care Unavailable JOSSELIN DECKER Attending Unavailable CATRACHITO BARTON Referring Unavailabl e Allsop Terri STONE Primary Care Provider Luiz MORRISON Attending Unavailable MORRISONLuiz R Attending Unavailable Allsop, Terri D Admitting Unavailable Allsop, Terri Pfeiffer Attending Unavailable Allsop, Terri Pfeiffer Admitting Unavailable Allsop, Terri Pfeiffer Attending Unavailable Allsop, Terri Pfeiffer Referring Unavailable MORRISONLuiz Attending Unavailable MORRISONLuiz R Admitting Unavailable Allsop, Terri D Admitting Unavailable Allsop, Terri Pfeiffer Attending Unavailable DOLCE, ADAM Pfeiffer Attending Unavailable ALLSOP, TERRI Pfeiffer Attending Unavailable DOLCE, ADAM Pfeiffer Attending Unavailable ALLSOP, TERRI Pfeiffer Attending Unavailable ALLSOP, TERRI Pfeifefr Attending Unavailable DOLCE, ADAM Pfeiffer Attending Unavailable DOLCE, ADAM Pfeiffer Attending Unavailable GUNNAR ADLER Attending Unavailable DELORES AC Attending Unavailable ALLSOP, TERRI HENDERSONNE Primary Care Unavailab le Allergies Allergy Classification Reported Allergen(s) Allergy Type Date of Onset Reaction(s) Facility Macrolides (antibiotic) (1 source) Clarithromycin Drug Allergy Unknown [facility] (1 source) No Known Medication Allergies; Translations: [No Known Medication Allergies] Propensity to adverse reactions to drug (disorder) [facility] (9 sources) shellfish, unspecified Allergy to substance (finding) [facility] 600 DO Work Phone: (14 sources) Clarithromycin; Translations: [clarithromycin] Drug Allergy Unknown [facility] [place] (2 sources) Shellfish; Translations: [SHELLFISH CONTAINING PRODUCTS] Drug Allergy 3 Swelling [facility] (2 sources) Shellfish; Translations: [SHELLFISH DERIVED] Propensity to adverse reactions 4 Other [facility] Medications Current Medications Medication Drug Class(es) Dates Sig (Normalized) Sig (Original) acetaminophen 325 mg / HYDROcodone bitartrate 7.5 mg oral tablet (2 sources) Opioid Agonist Start: 02-12-2022 take 1 tablet by mouth once [place] 325 mg-7.5 mg oral tablet 1 tab(s), Oral, Once, 1 tab(s), Refill(s) 0, Take 1 hour prior to procedure. Don't drive or operate machinery while taking this medication., [facility] 1985, 178, cm, 12/22/21 8:18:00 EDT, Height/Length Dosing, 137.1, kg, 12/22/21 8:17:00 EDT,... Start Date: 02/12/22 Status: Ordered aMILoride hydrochloride 5 mg oral tablet (20 sources) Potassium-sparin g Diuretic Start: 04-13-2022 take 5 mg by mouth twice daily Amiloride Active 5 MG PO Twice daily April 13, 2022 12:00am Start: 06-27-2019 take 2 tablets by [facility] once daily amiloride 5 mg oral tablet See Instructions, Take 2 tablets by mouth once daily, # 180 EA, Refills(s) 1, Pharmacy: [facility], 177, cm, 08/28/20 9:27:00 EST, Height/Length Dosing, 84, kg, 08/28/20 9:27:00 EST, Weight Dosing Start Date: 10/09/20 Status: Ordered End: 09-30-2023 take 1 tablet by mouth once daily aMILoride (Midamor) 5 mg tablet Take 1 tablet (5 mg) by mouth once daily. 0 09/30/2023 Discontinued (Other) aMILoride HCl Ac tive Comment on above: TAKE 2 TABLETS BY MO [facility] ONCE DAILY FOR 90 DAYS amLODIPine 10 mg oral tablet (20 sources) Dihydropyridine Calcium Channel Jonathan Start: 3 take 1 tablet by mouth once daily amLODIPine 10 mg Tab 10 mg = 1 tab(s), Oral, Daily Start Date: 06/15/23 Status: Ordered Start: 06-10-2021 End: 09-30-2023 take 1 tablet by mouth once daily amLODIPine (Norvasc) 5 mg tablet Take 1 tablet (5 mg) by mouth once daily. 0 06/10/2021 09/30/2023 Discontinued (Other) amLODIPine Besyl ate Active Comment on above: Take 5 mg by mouth o nce daily. {1 (Ascorbic Acid 7540 MG / POLYETHYLENE GLYCOL 3350 35436 MG / Potassium Chloride 1200 MG / Sodium Ascorbate 75664 MG / Sodium Chloride 3200 MG Powder for Oral Solution) / 1 (POLYETHYLENE GLYCOL 3350 043785 MG / Potassium Chloride 1000 MG / Sodium Chlori (9 sources) Osmotic Laxative, Vitamin C Start: 12-12-19 take 1 dose by mouth once Plenvu oral powder for reconstitution See Instructions, 1 EA, Refill(s) 0, samples given to patient (Rx), Per physicians instructions prior to colonoscopy Start Date: 12/11/21 Status: Ordered aspirin 325 mg oral tablet (20 sources) Platelet Aggregation Inhibitor, Nonsteroidal Anti-inflammatory Drug Start: 04-13-20 take 325 mg by mouth once daily at bedtime Aspirin Active 325 MG PO Daily at bedtime April 13, 2022 12:00am Start: 04-24-2019 aspirin 325 mg tablet Take 325 mg by mouth every 48 hours. 3 04/24/2019 Active Start: 03-13-2019 take 1 tablet by shelley th every other day aspirin 325 mg Tab 325 mg = 1 tab(s), Oral, Every other day, Refills(s) 0, Prophylaxis Start Date: 03/13/19 Status: Ordered Aspirin Active take 1 tablet by shelley th once daily Aspirin 325 MG Oral Tablet Delayed Release Take 1 tablet daily Quantity: 0 Refills: 0 Ordered: 31-Aug-2021 DO Active Comment on above: Take 325 mg by mouth every 48 hours. B 100 Complex oral tablet (20 sources) Start: 11-22-2019 B 100 Complex oral tablet 1 tab(s), Oral, Daily, 100 tab(s), Refill(s) 0, Prophylaxis Start Date: 11/22/19 Status: Ordered Start: 11-22-2019 B 100 Complex oral tablet 1 tab(s), Oral, Daily, 100 tab(s), Refill(s) 0 Start Date: 11/22/19 Status: Ordered calcium carbonate 1500 mg oral tablet (20 sources) Start: 11-22-2019 calcium (as carbonate) 600 mg oral tablet 1,200 mg = 2 tab(s), Oral, Daily, Refills(s) 0, Prophylaxis Start Date: 11/22/19 Status: Ordered calcium carbonate 1500 mg / cholecalciferol 0.01 mg oral tablet (4 sources) Vitamin D Start: 04-13-2022 take 1 tablet by mouth once daily at bedtime Calcium Carbonate-Vitamin D3 (Calcium 600 + D(3)) 600 mg-10 mcg (400 unit) Tablet Active 1 TAB PO Daily at bedtime April 13, 2022 12:00am CALCIUM CITRATE-VITAMIN D3 ORAL (1 source) End: 09-30-2023 CALCIUM CITRATE-VITAMIN D3 ORAL Take by mouth. 0 09/30/2023 Discontinued (Other) carvedilol 25 mg oral tablet (20 sources) alpha-Adrenerg ic Jonathan, beta-Adrenergi c Jonathan Start: 04-13-2022 take 12.5 mg by mouth three times daily Carvedilol Active 12.5 MG PO Three times daily April 13, 2022 12:00am Start: 03-31-2022 End: 09-29-2024 take 1 tablet by mouth twice daily Coreg 25 mg Tab 25 mg = 1 tab(s), Oral, BID, Refills(s) 0, High blood pressure Start Date: 03/31/22 Status: Ordered Start: 08-06-2011 take 2 tablets by mo uth twice daily Coreg 12.5 mg Tab 25 mg = 2 tab(s), Oral, BID, Refills(s) 0, Other (see comment) Start Date: 08/06/11 Status: Ordered take 4 tablets by mo uth twice daily Carvedilol 12.5 MG Oral Tablet TAKE 12.5 TABLET Twice daily Quantity: 180 Refills: 3 Ordered: 11-May-2022 Valerie Leija Active carvedilol (CORE G) 25 mg tablet Take 12.5 mg by mouth twice daily with meals. 0 Active Carvedilol 12.5 MG Oral Tablet TAKE 12.5 TABLET Twice daily Quantity: 0 Refills: 0 Ordered: 31-Aug-2021 DO Active take 37.5 mg by mout h once daily carvedilol ; 37.5 milligram(s) orally once a day Quantity: 0 Refills: 0 Ordered: 07-Jul-2020 Petar Wu Generic Substitution Allowed Comment on above: Take 12.5 mg by mout h twice daily with meals. cholecalciferol 0.05 mg oral tablet (4 sources) Vitamin D Start: take 1 tablet by mouth once daily at bedtime Cholecalciferol (Vitamin D3) (Vitamin D3) 50 mcg (2,000 unit) Tablet Active 50 MCG PO Daily at bedtime April 13, 2022 12:00am 12 hr dextromethorphan hydrobromide 60 mg / guaiFENesin 1200 mg extended release oral tablet (1 source) Uncompetitive M-jcodgz-W-aspartate Receptor Antagonist, Sigma-1 Agonist Start: End: take 1 tablet by mouth every twelve hours guaifenesin-dextromet horphan 1200 mg-60 mg oral tablet, extended release ; 1 tab(s) orally every 12 hours Quantity: 20 Refills: 0 Ordered: 10-Mar-2021 Chriss Marie Start: 10-Mar-2021 End: 19-Mar-2021 Status: Other Generic Substitution Allowed Comments: Medication should be taken with plenty of water.Swallow whole. Do not crush. Comment on above: Medication should be taken with plenty of water.Swallow whole. Do not crush. doxazosin 4 mg oral tablet (20 sources) alpha-Adrenergic Jonathan Start: take 1 tablet by mouth once daily Cardura 4 mg Tab 4 mg = 1 tab(s), Oral, Daily, Refills(s) 0, Other (see comment) Start Date: 10/07/11 Status: Ordered Comment on above: Take 4 mg by mouth d aily at bedtime. doxycycline hyclate 100 mg oral capsule (6 sources) Tetracycline-class Drug Start: take 100 mg by mouth twice daily Doxycycline Hyclate Active 100 MG PO Twice daily 27 05April 27, 2022 12:00am Start: 12-01-2021 End: 12-22-2021 take 1 capsule by mouth twice daily doxycycline hyclate 100 mg Cap 100 mg = 1 cap(s), Oral, BID, X 21 day(s), # 42 cap(s), Refills(s) 0, Pharmacy: [facility], 178, cm, 11/26/21 12:38:00 EDT, Height/Length Dosing, 137.1, kg, 11/04/21 10:45:00 EDT, Weight Dosing Start Date: 12/01/21 Stop Date: 12/22/21 Status: Ordered erythromycin 0.02 mg/mg topical gel (13 sources) Macrolide, Macrolide Antimicrobial Start: 03-31-2022 Erygel 2% topical gel 1 juan, Topical, BID, Refill(s) 0 Start Date: 03/31/22 Status: Ordered finasteride 5 mg oral tablet (20 sources) 5-alpha Reductase Inhibitor Start: 12-01-2021 take 1 tablet by mouth once daily finasteride 5 mg Tab 5 mg = 1 tab(s), Oral, Daily, # 90 tab(s), Refills(s) 3, Pharmacy: [facility] 1986, 178, cm, 11/03/22 16:00:00 EDT, Height/Length Dosing, 125.6, kg, 11/03/22 16:00:00 EDT, Weight Dosing Start Date: 02/02/23 Status: Ordered Finasteride Acti ve Comment on above: Take 5 mg by mouth o nce daily. Fish Oils (13 sources) Start: 11-22-2019 take 4 capsules by mouth once daily EPA Fish Oil 1000 mg oral capsule 4,000 mg = 4 cap(s), Oral, Daily, Refills(s) 0 Start Date: 11/22/19 Status: Ordered Fish Oil Not-Ladonna ing Fish Oil Active fluticasone propionate 0.05 mg/actuat metered dose nasal spray (1 source) Corticosteroid Start: 03-10-2021 End: 03-19-2021 take 1 spray(s) nasal route once daily fluticasone 50 mcg/inh nasal spray ; 1 spray(s) in each nostril once a day Quantity: 1 Refills: 0 Ordered: 10-Mar-2021 Chriss Marie Start: 10-Mar-2021 End: 19-Mar-2021 Generic Substitution Allowed Comments: For the nose.It is very important that you take or use this exactly as directed. Do not skip doses or discontinue unless directed by your doctor. Comment on above: For the nose.It is v jolly important that you take or use this exactly as directed. Do not skip doses or discontinue unless directed by your doctor. hydrALAZINE hydrochloride 50 mg oral tablet (20 sources) Arteriolar Vasodilator Start: 02-21-2020 End: 05-26-2024 take 1 tablet by mouth three times daily hydrALAZINE 50 mg Tab 50 mg = 1 tab(s), Oral, TID, Refills(s) 0, High blood pressure Start Date: 03/31/22 Status: Ordered Start: 06-29-2019 hydrALAZINE (A PRESOLINE) 25 mg tablet Take 150 mg by mouth once daily. 1 06/29/2019 Active hydrALAZINE HCl Active take 150 mg by mouth once daily hydrALAZINE ; 150 milligram(s) orally once a day Quantity: 0 Refills: 0 Ordered: 07-Jul-2020 Petar Wu Generic Substitution Allowed Comment on above: Take 150 mg by mouth once daily. hydroCHLOROthiazide 25 mg oral tablet (20 sources) Thiazide Diuretic Start: take 1 tablet by mouth once daily hydrochlorothiazide 25 mg oral tablet 25 mg = 1 tab(s), Oral, Daily, Refills(s) 0, diuretic/water pill Start Date: 11/22/19 Status: Ordered hydroCHLOROthiaz candi (HYDRODIURIL, ESIDRIX) 50 mg tablet Take 25 mg by mouth once daily. 0 Active hydroCHLOROthiaz candi Active Comment on above: Take 25 mg by mouth once daily. hydroCHLOROthiazide 25 mg / losartan potassium 100 mg oral tablet (2 sources) Thiazide Diuretic, Angiotensin 2 Receptor Jonathan Losartan Potassium-HCTZ 100-25 MG Orally Once a day Active loratadine 10 mg oral tablet (20 sources) Start: 03-31-20 take 1 tablet by mouth once daily loratadine 10 mg Tab 10 mg = 1 tab(s), Oral, Daily, Refills(s) 0, Allergy symptoms Start Date: 03/31/22 Status: Ordered Start: 11-22-2019 take 1 tablet by shelley th once daily loratadine 10 mg Tab 10 mg = 1 tab(s), Oral, Daily, Refills(s) 0 Start Date: 11/22/19 Status: Ordered loratadine 10 mg cap Take by mouth once daily. 0 Active Claritin Not-Aldonna ing Comment on above: Take by mouth once d aily. losartan potassium 100 mg oral tablet (20 sources) Angiotensin 2 Receptor Jonathan Start: 0 take 1 tablet by mouth once daily losartan 100 mg Tab 100 mg = 1 tab(s), Oral, Daily, Refills(s) 0, High blood pressure Start Date: 11/22/19 Status: Ordered Comment on above: Take 100 mg by mouth once daily. lovastatin 20 mg oral tablet (20 sources) HMG-CoA Reductase Inhibitor Start: 2 take 30 mg by mouth once daily at bedtime Lovastatin Active 30 MG PO Daily at bedtime April 13, 2022 12:00am Start: 03-31-2022 lovastatin 20 mg Tab 30 mg = 1.5 tab(s), Oral, Daily, Refills(s) 0, High cholesterol Start Date: 03/31/22 Status: Ordered Start: 06-12-2019 take 1 tablet by [facility] once daily lovastatin (MEVACOR) 20 mg tablet TAKE 1 & 1 2 (ONE & ONE HALF) TABLETS BY MOUTH ONCE DAILY 9 06/12/2019 Active Start: 09-23-2017 take 3 tablets by [facility] once daily lovastatin 10 mg Tab 30 mg = 3 tab(s), Oral, Daily, Refills(s) 0 Start Date: 09/23/17 Status: Ordered take 2 tablets by [facility] every other day lovastatin (Mevacor) 20 mg tablet Take 2 tablets (40 mg) by mouth every other day. 0 Active Lovastatin Activ e Comment on above: TAKE 1 & 1 2 (ONE & ONE HALF) TABLETS BY MOUTH ONCE DAILY Misc Medication (5 sources) Start: 0 Misc Medication Flaxseed Oil, 4000 mg, 5 days a week Start Date: 11/22/19 Status: Ordered montelukast 10 mg oral tablet (20 sources) Leukotriene Receptor Antagonist Start: 2 take 10 mg by mouth once daily at bedtime Montelukast Active 10 MG PO Daily at bedtime April 13, 2022 12:00am Start: 12-10-2009 End: 01-09-2010 take 1 tablet by mouth at bedtime Singulair 10 mg Tab 10 mg = 1 tab(s), Oral, Bedtime, # 30 tab(s), Refills(s) 0 Start Date: 12/10/09 Stop Date: 01/09/10 Status: Ordered Comment on above: Take 10 mg by mouth daily at bedtime. Multivitamin preparation (4 sources) Start: 2 take 1 tablet by mouth once daily at bedtime Multivitamin Active 1 TAB PO Daily at bedtime April 13, 2022 12:00am multivitamin tablet (1 source) End: 4 take 1 tablet by mouth once daily multivitamin tablet Take 1 tablet by mouth once daily. 0 09/30/2023 Discontinued (Other) niacin 500 mg oral tablet (20 sources) Nicotinic Acid Start: 2 take 1 tablet by mouth once daily niacin 500 mg oral tablet 500 mg = 1 tab(s), Oral, Daily, Refills(s) 0, High cholesterol Start Date: 03/31/22 Status: Ordered Start: 11-22-2019 take 1 tablet by shelley th once daily at bedtime niacin 500 mg ER Tab 500 mg = 1 tab(s), Oral, Once a day (at bedtime), Refills(s) 0 Start Date: 11/22/19 Status: Ordered take 1 tablet by shelley th once daily Niacin 250 MG Oral Tablet TAKE 1 TABLET DAILY DIRECTED. Quantity: 0 Refills: 0 Ordered: 31-Aug-2021 DO Active omega 6-vwa-fiy-fish oil 360 mg-108 mg- 180 mg-1,200 mg capsule (1 source) End: 09-30-2023 take 1 capsule by mouth once daily omega 4-wtn-xom-fish oil 360 mg-108 mg- 180 mg-1,200 mg capsule Take 1 capsule by mouth once daily. 0 09/30/2023 Discontinued (Other) Elton-3 Fatty Acids (2 sources) Start: 04-13-2022 take 2000 mg by mouth once daily at bedtime Elton-3 Fatty Acids Active 2000 MG PO Daily at bedtime April 13, 2022 12:00am Elton-3 Fatty Acids (Elton 3 Fish Oil) Capsule (2 sources) Start: 04-13-2022 take 1 capsule by mouth once daily at bedtime Elton-3 Fatty Acids (Elton 3 Fish Oil) Capsule Active 2000 MG PO Daily at bedtime April 13, 2022 12:00am PARoxetine hydrochloride 20 mg oral tablet (20 sources) Serotonin Reuptake Inhibitor Start: 09-23-2017 take 1 tablet by mouth once daily paroxetine 20 mg Tab 20 mg = 1 tab(s), Oral, Daily, Refills(s) 0, Depression Start Date: 09/23/17 Status: Ordered Start: 09-23-2017 take 1 tablet by [facility] once daily paroxetine 20 mg Tab 20 mg = 1 tab(s), Oral, Daily, Refills(s) 0 Start Date: 09/23/17 Status: Ordered Comment on above: Take 20 mg by mouth once daily. phenylephrine hydrochloride 25 mg/ml ophthalmic solution (1 source) alpha-1 Adrenergic Agonist Start: 05-21-20 End: 05-22-20 PHENYLephrine 2.5 % 1 Drop (AK-DILATE, DEBRA-SYNEPHRINE) Plenvu oral powder for reconstitution (3 sources) Start: 12-12-19 take 1 dose by mouth once Plenvu oral powder for reconstitution See Instructions, 1 EA, Refill(s) 0, samples given to patient (Rx), Per physicians instructions prior to colonoscopy Start Date: 12/11/21 Status: Ordered potassium chloride 10 meq extended release oral tablet (20 sources) Start: 04-13-20 take 70 mEq by mouth once daily at bedtime Potassium Chloride Active 70 MEQ PO Daily at bedtime April 13, 2022 12:00am Start: 10-07-2011 take 7 tablets by [facility] once daily Klor-Con 10 mEq 70 mEq = 7 tab(s), Oral, Daily, # 210, Refills(s) 0, Prophylaxis Start Date: 10/07/11 Status: Ordered Start: 10-07-2011 take 7 tablets by [facility] once daily Klor-Con 10 mEq 70 mEq = 7 tab(s), Oral, Daily, # 210, Refills(s) 0, Prophylaxis Start Date: 10/07/11 Status: Ordered Start: 10-07-2011 take 7 tablets by [facility] once daily Klor-Con 10 mEq 70 mEq = 7 tab(s), Oral, Daily, # 210, Refills(s) 0, Prophylaxis Start Date: 10/07/11 Status: Ordered potassium chlori de CR 20 mEq ER tablet Take by mouth once daily. 0 Active Potassium Chlori de 20 MEQ TBCR TAKE 7 TABLET Daily Quantity: 0 Refills: 0 Ordered: 31-Aug-2021 DO Active take 60 mEq by mouth once daily potassium chloride (KLOR-CON ORAL) Take 60 mEq by mouth once daily. 0 Active Klor-Con Active Potassium Chlori de 20 MEQ TBCR TAKE 7 TABLET Daily Quantity: 0 Refills: 0 Ordered: 31-Aug-2021 DO Active potassium chlori de ; 70 milliequivalent(s) orally once a day Quantity: 0 Refills: 0 Ordered: 07-Jul-2020 Petar Wu Generic Substitution Allowed Comment on above: Take 60 mEq by mouth once daily. proparacaine hydrochloride 5 mg/ml ophthalmic solution (1 source) Local Anesthetic Start: 2 End: 2 proparacaine 0.5 % 1 Drop (ALCAINE) solifenacin succinate 10 mg oral tablet (2 sources) Cholinergic Muscarinic Antagonist Start: 2 take 1 tablet by mouth once daily Solifenacin (Vesicare) 10 mg tablet Active 10 MG PO Daily April 27, 2022 12:00am testosterone cypionate 200 mg/ml injectable solution (17 sources) Androgen Start: 2 Testosterone Cypionate Active 300 MG IM EVERY 4 WEEKS April 13, 2022 12:00am Start: 06-09-2019 testosterone c ypionate (DEPO-TESTOSTERONE) 200 mg/mL injection INJECT 1ML INTRAMUSCULARLY EVERY 4 WEEKS FOR 30 DAYS 5 06/09/2019 Active End: 09-30-2023 testosterone cypionate (Depo-Testosterone) 200 mg/mL injection take once monthly 0 09/30/2023 Discontinued (Other) Testosterone Cyp ionate 200 MG/ML Injection Solution take once monthly Quantity: 0 Refills: 0 Ordered: 31-Aug-2021 DO Active Testosterone Act ranjana inject 300 [IU] by intramuscular injection every month testosterone cypionate ; 300 unit(s) intramuscular once a month Quantity: 0 Refills: 0 Ordered: 11-Sep-2020 Petar Wu Generic Substitution Allowed Comment on above: INJECT 1ML INTRAMUSC ULARLY EVERY 4 WEEKS FOR 30 DAYS testosterone cypionate 200 mg/mL IM Angelica (20 sources) Start: 08-28-2020 testosterone cypionate 200 mg/mL IM Angelica 300 mg, IntraMuscular, q4wk, # 2 mL, Refills(s) 4, Pharmacy: [facility], 177, cm, 08/28/20 9:27:00 EST, Height/Length Dosing, 84, kg, 08/28/20 9:27:00 EST, Weight Dosing Start Date: 08/28/20 Status: Ordered tropicamide 10 mg/ml ophthalmic solution (1 source) Anticholinergic Start: 05-21-2022 End: 05-22-2022 tropicamide 1 % 1 Drop (MYDRIACYL) Completed/Discontinued Medications Medication Drug Class(es) Dates Sig (Normalized) Sig (Original) amoxicillin 875 mg oral tablet (1 source) Penicillin-class Antibacterial Start: 09-11-2020 End: 09-20-2020 take 1 tablet by mouth twice daily amoxicillin 875 mg oral tablet ; 1 tab(s) orally 2 times a day Quantity: 20 Refills: 0 Ordered: 11-Sep-2020 Emile Michelle Start: 11-Sep-2020 End: 20-Sep-2020 Status: Other Generic Substitution Allowed Comments: Finish all this medication unless otherwise directed by prescriber. Comment on above: Finish all this medi cation unless otherwise directed by prescriber. Ascorbic Acid (2 sources) Vitamin C Vitamin C Not-Taking Vitamin C Active Calcium (8 sources) Phosphate Binder, Calcium Calcium + D TABS TAKE DIRECTED. Quantity: 0 Refills: 0 Ordered: 31-Aug-2021 DO Active ciprofloxacin 500 mg oral tablet (4 sources) Quinolone Antimicrobial Start: 11-05-19 take 1 tablet by mouth once daily Cipro 500 mg Tab 500 mg = 1 tab(s), Oral, Daily, take 1 day prior to procedure and 1 tab after procedure, # 2 tab(s), Refills(s) 0, Pharmacy: [facility], 178, cm, 11/04/21 10:45:00 EDT, Height/Length Dosing, 137.1, kg, 11/04/21 10:45:00 EDT, Weight Dosing Start Date: 11/04/21 Status: Ordered Start: 07-07-2020 End: 07-20-2020 take 1 tablet by mouth every twelve hours ciprofloxacin 500 mg oral tablet ; 1 tab(s) orally every 12 hours Quantity: 28 Refills: 0 Ordered: 07-Jul-2020 Chriss Marie Start: 07-Jul-2020 End: 20-Jul-2020 Status: Other Generic Substitution Allowed Comments: Avoid prolonged or excessive exposure to direct and/or artificial sunlight while taking this medication.Check with your doctor before becoming .Do not take dairy products, antacids, or iron preparations within one hour of this medication.Finish all this medication unless otherwise directed by prescriber.Medication should be taken with plenty of water. Comment on above: Avoid prolonged or e xcessive exposure to direct and/or artificial sunlight while taking this medication.Check with your doctor before becoming .Do not take dairy products, antacids, or iron preparations within one hour of this medication.Finish all this medication unless otherwise directed by prescriber.Medication should be taken with plenty of water. Flaxseed Oil (2 sources) Flaxseed Oil Not -Taking Flaxseed Oil Act ranjana icosapent ethyl (3 sources) take 4 g by mouth once daily ico sapent ethyl (VASCEPA ORAL) Take 4 g by mouth once daily. 0 Active Vascepa Not-Taki ng Comment on above: Take 4 g by mouth on ce daily. Multi-Vitamin Oral Tablet (8 sources) take 1 tablet by mouth once daily Multi-Vitamin Oral Tablet TAKE 1 TABLET DAILY. Quantity: 0 Refills: 0 Ordered: 31-Aug-2021 DO Active Elton-3 CAPS (8 sources) Elton-3 CAPS LADONNA E DIRECTED. Quantity: 0 Refills: 0 Ordered: 31-Aug-2021 DO Active Potassimin (2 sources) Potassimin Not-Taking spironolactone 25 mg oral tablet (2 sources) Aldosterone Antagonist take 1 tablet by mouth every twenty-four hours Aldactone 25 MG 1 tablet Orally Once a day Not-Taking Vitamin B Complex (2 sources) Vitamin B Comple x Not-Taking Vitamin B Comple x Active Vitamin D (2 sources) Vitamin D Not-Ta timmy Vitamin D Active Vitamin D 1000 intl units Tab (20 sources) Start: 11-22-2019 take 3 tablets by mouth once daily Vitamin D 1000 intl units Tab 3,000 International_Unit = 3 tab(s), Oral, Daily, # 30 tab(s), Refills(s) 0, Prophylaxis Start Date: 11/22/19 Status: Ordered Start: 11-22-2019 take 3 tablets by mo ut once daily Vitamin D 1000 intl units Tab 3,000 International_Unit = 3 tab(s), Oral, Daily, # 30 tab(s), Refills(s) 0 Start Date: 11/22/19 Status: Ordered Problems Active Problems Problem Classification Problem Date Documented Date Episodic/Chronic Anxiety disorders (20 sources) Anxiety 12-08-2021 Chronic Asthma (20 sources) Asthma; Translations: [Asthma, unspecified type, unspecified] Onset: 08-08-1970 01-24-2014 Chronic Cataract (1 source) Bilateral senile combined form cataracts of eyes; Translations: [Combined forms of age-related cataract, bilateral] Chronic Congestive heart failure; nonhypertensive (20 sources) Chronic heart failure; Translations: [Left heart failure] 03-13-2019 Chronic Diabetes mellitus without complication (20 sources) Hyperglycemia 02-21-2020 Episodic Disorders of lipid metabolism (20 sources) Hyperlipidemia; Translations: [Other and unspecified hyperlipidemia] Onset: 05-27-2023 11-06-2020 Chronic Essential hypertension (20 sources) Essential hypertension; Translations: [Unspecified essential hypertension] Onset: 05-27-2023 02-21-2020 Chronic Fluid and electrolyte disorders (20 sources) Hypokalemia 02-21-2020 Episodic Genitourinary symptoms and ill-defined conditions (17 sources) Urge incontinence; Translations: [Urge incontinence of urine] Onset: 11-04-2021 Chronic Genitourinary symptoms and ill-defined conditions (18 sources) Blood in urine; Translations: [Gross hematuria] Onset: 11-04-2021 Episodic Glaucoma (1 source) Ocular hypertension; Translations: [Ocular hypertension, bilateral] Onset: 04-12-2018 04-12-2018 Chronic Hemorrhoids (9 sources) Thrombosed external hemorrhoids 04-25-2022 Episodic Hyperplasia of prostate (19 sources) Benign prostatic hypertrophy with outflow obstruction; Translations: [Benign prostatic hyperplasia with lower urinary tract symptoms] Onset: 12-22-2021 Chronic Malaise and fatigue (20 sources) Fatigue 12-08-2021 Episodic Mood disorders (20 sources) Dysthymia; Translations: [Depressive disorder] Onset: 12-10-2009 03-13-2019 Chronic Mycoses (20 sources) Onychomycosis; Translations: [Tinea pedis] 03-13-2019 Episodic Other and ill-defined heart disease (20 sources) Heart disease 11-04-2021 Chronic Other diseases of kidney and ureters (3 sources) Urinary tract obstruction; Translations: [Other obstructive and reflux uropathy] Onset: 12-08-2021 Episodic Other endocrine disorders (20 sources) Male hypogonadism 11-06-2020 Chronic Other endocrine disorders (2 sources) Hypogonadotropic hypogonadism; 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 Other eye disorders (1 source) Bilateral posterior vitreous detachment; Translations: [Vitreous degeneration, bilateral] Chronic Other eye disorders (2 sources) Bilateral vitreous floaters; Translations: [Other vitreous opacities, bilateral] Onset: 04-12-2018 Chronic Other eye disorders (1 source) Posterior vitreous detachment of left eye; Translations: [Vitreous degeneration, left eye] Onset: 04-12-2018 04-12-2018 Chronic Other eye disorders (1 source) Bilateral floppy eyelid syndrome of eyes; Translations: [Other disorders affecting eyelid function] Episodic Other hereditary and degenerative nervous system conditions (20 sources) Restless legs 12-08-2021 Chronic Other nutritional; endocrine; and metabolic disorders (19 sources) Body mass index 40+ - severely obese; Translations: [Morbid obesity] Onset: 12-11-2021 Chronic Other nutritional; endocrine; and metabolic disorders (20 sources) Hypocalcemia 11-06-2020 Chronic Other nutritional; endocrine; and metabolic disorders (20 sources) Obesity; Translations: [Obesity, unspecified] Onset: 12-11-2021 02-21-2020 Chronic Other nutritional; endocrine; and metabolic disorders (20 sources) Hypercalcemia 12-08-2021 Chronic Other nutritional; endocrine; and metabolic disorders (20 sources) Morbid obesity; Translations: [Morbid (severe) obesity due to excess calories] 12-08-2021 Chronic Other nutritional; endocrine; and metabolic disorders (3 sources) Morbid (severe) obesity due to excess calories; Translations: [Morbid (severe) obesity due to excess calories (CMS/HCC)] Onset: 02-22-2022 Resolved: 02-22-2022 Chronic Other nutritional; endocrine; and metabolic disorders (13 sources) Body mass index 30+ - obesity 04-01-2022 Chronic Other nutritional; endocrine; and metabolic disorders (2 sources) Body mass index (BMI) 40.0-44.9, adult; Translations: [Body mass index (BMI) 40.0-44.9, adult (CMS/HCC)] Onset: 09-30-2023 Chronic Other screening for suspected conditions (not mental disorders or infectious disease) (20 sources) Liver function tests abnormal; Translations: [Raised prostate specific antigen] Onset: 12-11-2021 12-08-2021 Episodic Other upper respiratory disease (20 sources) Seasonal allergy 12-08-2021 Chronic Other upper respiratory infections (4 sources) Upper respiratory infection; Translations: [Acute upper respiratory infections of unspecified site] 03-10-2021 Episodic Comment on above: URI Daina-; endo-; and myocarditis; cardiomyopathy (except that caused by tuberculosis or sexually transmitted disease) (20 sources) Cardiomyopathy; Translations: [Other primary cardiomyopathies] Onset: 05-27-2023 12-08-2021 Chronic Peripheral and visceral atherosclerosis (20 sources) Peripheral vascular disease 12-08-2021 Chronic Residual codes; unclassified (10 sources) Obstructive sleep apnea of adult; Translations: [Obstructive sleep apnea (adult)(pediatric)] Onset: 05-27-2023 09-30-2023 Chronic Residual codes; unclassified (20 sources) Sleep apnea 12-08-2021 Chronic Residual codes; unclassified (2 sources) Periodic limb movement disorder; Translations: [Periodic limb movement disorder] Chronic Residual codes; unclassified (2 sources) Obstructive sleep apnea syndrome; Translations: [Obstructive sleep apnea (adult) (pediatric)] Chronic Residual codes; unclassified (4 sources) Obstructive sleep apnea (adult) (pediatric); Translations: [Obstructive sleep apnea (adult) (pediatric)] Onset: 02-22-2022 Resolved: 02-22-2022 Chronic Residual codes; unclassified (1 source) Periodic limb movement disorder Onset: 02-22-2022 Resolved: 02-22-2022 Chronic Residual codes; unclassified (1 source) Obstructive sleep apnea (adult)(pediatric); Translations: [Obstructive sleep apnea (adult) (pediatric)] Onset: 02-21-2023 Chronic Residual codes; unclassified (20 sources) Edema 12-08-2021 Episodic Residual codes; unclassified (1 source) H/O: Disorder; Translations: [Personal history of other specified conditions] Onset: 06-15-2023 Episodic Retinal detachments; defects; vascular occlusion; and retinopathy (1 source) Bilateral epiretinal membrane of eyes; Translations: [Puckering of macula, bilateral] Chronic Thyroid disorders (20 sources) Hypothyroidism 05-22-2020 Chronic Unclassified (19 sources) Patient encounter status 12-11-2021 Unclassified (1 source) Benign prostatic hyperplasia with lower urinary tract symptoms; Translations: [Benign prostatic hyperplasia with lower urinary tract symptoms] Onset: 04-27-2022 Unclassified (1 source) Encounter for preprocedural laboratory examination; Translations: [Encounter for preprocedural laboratory examination] Onset: 04-13-2022 Unclassified (3 sources) History of clinical finding in subject 06-15-2023 Past or Other Problems Problem Classification Problem Date Documented Da te Episodic/Chronic Blindness and vision defects (1 source) Bilateral myopia of eyes; Translations: [Myopia, bilateral] Onset: 08-27-2019 08-27-2019 Episodic Nonmalignant breast conditions (9 sources) Drug-induced gynecomastia; Translations: [Hypertrophy of breast] Onset: 05-27-2023 05-27-2023 Episodic Unclassified (8 sources) Never smoked tobacco; Translations: [Never a smoker] Results Test Name Value Interpretation Reference Range Facility US LE Venous Duplex Righton 11-29-2023 LE Venous Duplex Right Exam Date/Time: 11/25/2023 12:42 EDT Reason for Exam: R60.9 EDEMA, M79.604 PAIN RIGHT LEG Report IMPRESSION: NO EVIDENCE OF VENOUS THROMBOSIS INVOLVING VISUALIZED DEEP VEINS OF THE RIGHT LEG. CLINICAL HISTORY: R60.9 EDEMA, M79.604 PAIN RIGHT LEG. COMMENT: On the right, the external iliac vein, greater saphenous vein, common femoral vein, deep femoral vein, femoral vein, and popliteal vein demonstrate spontaneous phasic venous flow, with augmentation, non-pulsatility, and compressibility every 2 cm. The right posterior tibial and peroneal veins of the deep venous system compress. The contralateral left common femoral vein demonstrates spontaneous phasic venous flow. Ordering Provider: Terri Santos FINAL REPORT Dictated: 11/29/2023 7:39 am Dyllan Kitchen M.D. Signed (Electronic Signature): 11/29/2023 7:39 am Signed by: Dyllan Kitchen M.D. Transcribed by: REGLA Technologist: [place] Consent for Treatmenton 11-06 Consent for Treatment [id number] 0TIFF Normal [facility] Physician Orderon 11-18-2023 Physician Order [id number]#1.0 0TIFF Normal [facility] CBC w/ Auto Diffon 4 Basophils/100 WBC (Bld) 0.8 % Normal 0.0-2.[address] [facility] Comment on above: Performed By: #### 2 904980, [id number], 8327500, 9563515 ####[facility] [address] [place] [address] Basophils/Leukocytes Auto (Bld) [Pure # fraction] 0.1 E9/L Normal 0.0-0.2 [facility] Comment on above: Performed By: #### 2 765956, 96185838, 0969556, 6517840 ####[address] [address] Eosinophils (Bld) [#/Vol] 0.3 E9/L Normal 0.0-0.5 [facility] Comment on above: Performed By: #### 2 588907, 31756125, 3708721, 6297970 ####[address] [address] Eosinophils/100 WBC (Bld) 3.4 % Normal 0.0-8.0 [facility] Comment on above: Performed By: #### 2 993272, 44191352, 7116216, 9085124 ####[address] [address] Erythrocyte distribution width (RBC) [Ratio] 13.6 % Normal 10.9-14.2 [facility] Comment on above: Performed By: #### 2 712518, 50233133, 0812934, 7492646 ####[address] [address] Hematocrit (Bld) [Volume fraction] 39.9 % Normal 37.7-49.0 [facility] Comment on above: Performed By: #### 2 742460, 19858569, 0528828, 9529783 ####[facility] [address] [place] [address] Hemoglobin (Bld) [Mass/Vol] 13.7 g/dL Normal 13.5-17.5 [facility] Comment on above: Performed By: #### 2 545763, 28597484, 8123959, 1223772 ####[place] [address] Lymphocytes (Bld) [#/Vol] 1.5 E9/L Normal 1.0-4.0 [facility] Comment on above: Performed By: #### 2 905259, 58157769, 6085507, 1248067 ####[address] [address] Lymphocytes/100 WBC (Bld) 20.2 % Normal 14.0-50.0 [facility] Comment on above: Performed By: #### 2 334072, 18021511, 2401807, 1700137 ####[address] [address] MCH (RBC) [Entitic mass] 30.4 pg Normal 27.0-34.0 [facility] Comment on above: Performed By: #### 2 338108, 34807742, 1228748, 0071951 ####[address] [address] MCHC (RBC) [Mass/Vol] 34.3 g/dL Normal 31.4-36.0 [facility] Comment on above: Performed By: #### 2 228226, 32574848, 9432831, 1844854 ####[address] [address] MCV (RBC) [Entitic vol] 88.6 fL Normal 80.0-100.0 [facility] Comment on above: Performed By: #### 2 193442, 09551185, 6483487, 0682083 ####[facility] [address] [place] [address] Monocytes (Bld) [#/Vol] 0.7 E9/L Normal 0.2-1.[address] [facility] Comment on above: Performed By: #### 2 533239, 18960026, 4067848, 6920266 ####[address] [address] Neutrophils (Bld) [#/Vol] 5.0 E9/L Normal 2.0-7.5 [facility] Comment on above: Performed By: #### 2 422611, 20272279, 0089176, 7812171 ####[address] [address] Neutrophils/100 WBC (Bld) 66.1 % Normal 36.0-75.0 [facility] Comment on above: Performed By: #### 2 221765, 82262552, 8177987, 4725880 ####[address] [address] Platelet mean volume (Bld) [Entitic vol] 9.1 fL Normal 6.4-10.8 [facility] Comment on above: Performed By: #### 2 991247, 72006951, 5853926, 8009203 ####[address] [address] Platelets (Bld) [#/Vol] 216.0 E9/L Normal 150.0-500.0 [facility] Comment on above: Performed By: #### 2 244128, 54852661, 3245023, 8667043 ####[address] [address] RBC (Bld) [#/Vol] 4.5 E12/L Normal 4.3-5.9 [facility] Comment on above: Performed By: #### 2 951386, 15744038, 7190502, 0886041 ####[address] [address] WBC corrected for nucl RBC Auto (Bld) [#/Vol] 7.5 E9/L Normal 4.0-11.0 [facility] Comment on above: Performed By: #### 2 800759, 21351562, 0795416, 3048330 ####[facility] [address] [place] [address] CHEMISTRYOrdered By: SYSTEM SYSTEM on 10-21-2023 Albumin [Mass/Vol] 4.3 g/dL Normal 3.3 - 5.0 gm/dL [facility] Albumin/Globulin [Mass ratio] 1.7 {ratio} Normal 1.1 - 2.2 [facility] ALP [Catalytic activity/Vol] 66 [iU]/d Normal 21 - 98 Int._Unit/L [facility] ALT No additional P-5'-P [Catalytic activity/Vol] 17 [iU]/d Normal 6 - 46 Int._Unit/L [facility] Anion gap [Moles/Vol] 13 mmol/L Normal 6 - 16 mEq/L [facility] AST [Catalytic activity/Vol] 17 [iU]/d Normal 5 - 43 Int._Unit/L [facility] Bilirubin [Mass/Vol] 0.9 mg/dL Normal 0.0 - 1 .1 mg/dL [facility] Calcium [Mass/Vol] 8.7 mg/dL Low 8.9 - 11. 1 mg/dL [facility] Chloride [Moles/Vol] 104 mmol/L Normal 101 - 1 11 mmol/L [facility] Cholesterol [Mass/Vol] 172 mg/dL Normal 120 - 200 mg/dL [facility] Cholesterol in HDL [Mass/Vol] 32 mg/dL Invalid Interpretation Code [facility] Comment on above: Result Comment: '>= 60 LOW RISK' '<= 40 HIGH RISK' Cholesterol in LDL [Mass/Vol] 107 mg/dL Normal <=129mg/dL [facility] Cholesterol in VLDL [Mass/Vol] 38 mg/dL Normal 7 - 40 mg/dL [facility] CO2 [Moles/Vol] 27 mmol/L Normal 21 - 31 mmol/L [facility] Creatinine [Mass/Vol] 0.6 mg/dL Normal 0.5 - 1.3 mg/dL [facility] eGFR 105 mL/min/1.73 m2 Normal >=59mL/mi n/ 1.73 m2 [facility] Globulin (S) [Mass/Vol] 2.6 g/dL Normal 1.4 - 4.0 gm/dL [facility] Glucose [Mass/Vol] 94 mg/dL Normal 55 - 199 mg/dL [facility] Potassium [Moles/Vol] 3.4 mmol/L Low 3.5 - 5.3 mmol/L [facility] Protein [Mass/Vol] 6.9 g/dL Normal 6.0 - 7.8 gm/dL [facility] Sodium [Moles/Vol] 141 mmol/L Normal 135 - 145 mmol/L [facility] Triglyceride [Mass/Vol] 192 mg/dL High <=149mg/dL R emisol Chem Urea nitrogen [Mass/Vol] 9 mg/dL Normal 5 - 21 mg/dL [facility] Urea nitrogen/Creatinine [Mass ratio] 15 mg/mg Normal 10 - 20 [facility] CMPon 10-21-2023 Albumin [Mass/Vol] 4.3 g/dL Normal 3.3-5.0 [facility] Comment on above: Performed By: #### 2 404122, 30692402, 9805142, 6774174 ####[facility] [address] [place] [address] Albumin/Globulin (S) [Mass conc ratio] 1.7 Normal 1.1-2.2 [facility] Comment on above: Performed By: #### 2 627291, 19141063, 6086558, 8178506 ####[facility] [address] [place] [address] ALP [Catalytic activity/Vol] 66 Int._Unit/L Normal 21-98 [facility] Comment on above: Performed By: #### 2 131403, 86631540, 0768716, 4080921 ####[facility] [address] [place] [address] ALT No additional P-5'-P [Catalytic activity/Vol] 17 Int._Unit/L Normal 6-46 [facility] Comment on above: Performed By: #### 2 826870, 95677049, 3816550, 9793667 ####[facility] [address] [place] [address] Anion gap [Moles/Vol] 13 mmol/L Normal 6-16 [facility] Comment on above: Performed By: #### 2 638545, 95061938, 4094303, 8111521 ####[facility] [address] [place] [address] AST [Catalytic activity/Vol] 17 Int._Unit/L Normal 5-43 [facility] Comment on above: Performed By: #### 2 782172, 39017098, 6464968, 7054183 ####[facility] [address] [place] [address] Bilirubin [Mass/Vol] 0.9 mg/dL Normal 0.0-1.1 [facility] Comment on above: Performed By: #### 2 042085, 22990537, 7795062, 1578929 ####[facility] [address] [place] [address] Calcium [Mass/Vol] 8.7 mg/dL Low 8.9-11.1 [facility] Comment on above: Performed By: #### 2 580021, 17835524, 9654527, 5666878 ####[facility] [address] [place] [address] Chloride [Moles/Vol] 104 mmol/L Normal 101-111 [facility] Comment on above: Performed By: #### 2 379060, 09759245, 9379040, 6079037 ####[facility] [address] [place] [address] CO2 [Moles/Vol] 27 mmol/L Normal 21-31 [facility] Comment on above: Performed By: #### 2 731669, 96139180, 5681323, 1672041 ####[facility] [address] [place] [address] Creatinine [Mass/Vol] 0.6 mg/dL Normal 0.5-1.3 [facility] Comment on above: Performed By: #### 2 554862, 61768575, 1728518, 4612321 ####[facility] [address] [place] [address] Globulin (S) [Mass/Vol] 2.6 g/dL Normal 1.4-4.[address] [facility] Comment on above: Performed By: #### 2 466158, 72215640, 5895708, 0419210 ####[facility] [address] [place] [address] Glucose [Mass/Vol] 94 mg/dL Normal 55-199 [facility] Comment on above: Performed By: #### 2 412970, 70347150, 7953327, 6761131 ####[facility] [address] [place] [address] Potassium [Moles/Vol] 3.4 mmol/L Low 3.5-5.3 [facility] Comment on above: Performed By: #### 2 305232, 48914947, 0106757, 2741374 ####[facility] [address] [place] [address] Protein [Mass/Vol] 6.9 g/dL Normal 6.0-7.8 [facility] Comment on above: Performed By: #### 2 918896, 13293268, 7656412, 4892535 ####[facility] [address] [place] [address] Sodium [Moles/Vol] 141 mmol/L Normal 135-145 [facility] Comment on above: Performed By: #### 2 074632, 44159227, 3521856, 0554723 ####[facility] [address] [place] [address] Urea nitrogen [Mass/Vol] 9 mg/dL Normal 5-21 [facility] Comment on above: Performed By: #### 2 517812, 54970861, 4347788, 8631948 ####[facility] [address] [place] [address] Urea nitrogen/Creatinine [Mass ratio] 15 No Units Normal 10-20 [facility] Comment on above: Performed By: #### 2 787968, 95695841, 1371980, 4892303 ####[facility] [address] [place] [address] Consent for Treatmenton 10-06 Consent for Treatment [id number] 0TIFF Normal [facility] HEMATOLOGYOrdered By: SYSTEM SYSTEM on 10-21-2023 Basophils/100 WBC (Bld) 0.8 % Normal 0.0 - 2.0 % [facility] Basophils/Leukocytes Auto (Bld) [Pure # fraction] 0.1 E9/L Normal 0.0 - 0.2 E9/L [facility] Eosinophils (Bld) [#/Vol] 0.3 E9/L Normal 0.0 - 0.5 E9/L [facility] Eosinophils/100 WBC (Bld) 3.4 % Normal 0.0 - 8.0 % [facility] Erythrocyte distribution width (RBC) [Ratio] 13.6 % Normal 10.9 - 14.2 % [facility] Hematocrit (Bld) [Volume fraction] 39.9 % Normal 37.7 - 49.0 % [facility] Hemoglobin (Bld) [Mass/Vol] 13.7 g/dL Normal 13.5 - 17.5 gm/dL [facility] Lymphocytes (Bld) [#/Vol] 1.5 E9/L Normal 1.0 - 4.0 E9/L [facility] Lymphocytes/100 WBC (Bld) 20.2 % Normal 14.0 - 50.0 % [facility] MCH (RBC) [Entitic mass] 30.4 pg Normal 27.0 - 34.0 pg [facility] MCHC (RBC) [Mass/Vol] 34.3 g/dL Normal 31.4 - 36.0 gm/dL [facility] MCV (RBC) [Entitic vol] 88.6 fL Normal 80.0 - 100.0 fL [facility] Monocytes (Bld) [#/Vol] 0.7 E9/L Normal 0.2 - 1.0 E9/L [facility] Monocytes/100 WBC (Bld) 9.5 % Normal 4.0 - 14.0 % [facility] Neutrophils (Bld) [#/Vol] 5.0 E9/L Normal 2.0 - 7.5 E9/L [facility] Neutrophils/100 WBC (Bld) 66.1 % Normal 36.0 - 75.0 % [facility] Platelet mean volume (Bld) [Entitic vol] 9.1 fL Normal 6.4 - 10.8 fL [facility] Platelets (Bld) [#/Vol] 216.0 E9/L Normal 150. 0 - 500.0 E9/L [facility] RBC (Bld) [#/Vol] 4.5 E12/L Normal 4.3 - 5.9 E12/L [facility] WBC corrected for nucl RBC Auto (Bld) [#/Vol] 7.5 E9/L Normal 4.0 - 11.0 E9/L [facility] Lipid Panelon 10-21-2023 Cholesterol [Mass/Vol] 172 mg/dL Normal 120-200 [facility] Comment on above: Performed By: #### 2 861525, 17312918, 3275446, 1103069 ####[facility] [address] [place] [address] Cholesterol in HDL [Mass/Vol] 32 mg/dL Invalid Interpretation Code [facility] Comment on above: Result Comment: '>= 60 LOW RISK' '<= 40 HIGH RISK' Performed By: #### 2 439975, 43764159, 6900377, 2747320 ####[facility] [address] [place] [address] Cholesterol in LDL [Mass/Vol] 107 mg/dL Normal <=129 [facility] Comment on above: Performed By: #### 2 516291, 84235793, 5015642, 6881911 ####[facility] [address] [place] [address] Cholesterol in VLDL [Mass/Vol] 38 mg/dL Normal 7-40 [facility] Comment on above: Performed By: #### 2 585867, 99736453, 7341091, 4422943 ####[facility] [address] [place] [address] Triglyceride [Mass/Vol] 192 mg/dL High <=149 [facility] Comment on above: Performed By: #### 2 829495, 73936649, 0095114, 0361694 ####[facility] [address] [place] [address] Physician Orderon 10-21-2023 Physician Order [id number] Normal [facility] eGFRon 10-21-2023 eGFR 105 mL/min/1.73 m2 Normal >=59 [facility] Comment on above: Order Comment: Order added by Discern Expert. Performed By: #### 2 659545, 18608484, 3667632, 8934818 ####[place] [address] [place] [address] Screenson 06-16-2023 Screens [id number] Normal [facility] Ambulatory Visit Summaryon 1 08-15-2022 Ambulatory Visit Summary ALYSE LOPEZCLIFF Noguera :1955 Visit Date:06/15/2023 Ambulatory Visit Instructions Your Diagnosis BPH with urinary obstruction History of elevated PSA Your Care Team Attending Physician - Luiz MORRISON MD Primary Care Physician - Terri Santos DO This Is Your Medications List finasteride (finasteride 5 mg Tab) Contact prescribing physician if questions or concerns amiloride (amiloride 5 mg oral tablet) amlodipine (amLODIPine 10 mg Tab) aspirin (aspirin 325 mg Tab) calcium carbonate (calcium (as carbonate) 600 mg oral tablet) carvedilol (Coreg 25 mg Tab) cholecalciferol (Vitamin D 1000 intl units Tab) doxazosin (Cardura 4 mg Tab) erythromycin topical (Erygel 2% topical gel) hydrALAZINE (hydrALAZINE 50 mg Tab) hydrochlorothiazide (hydrochlorothiazide 25 mg oral tablet) loratadine (loratadine 10 mg Tab) losartan (losartan 100 mg Tab) lovastatin (lovastatin 20 mg Tab) montelukast (Singulair 10 mg Tab) multivitamin (B 100 Complex oral tablet) niacin (niacin 500 mg oral tablet) paroxetine (paroxetine 20 mg Tab) potassium chloride (Klor-Con 10 mEq) testosterone (testosterone cypionate 200 mg/mL IM Angelica) Procedures Performed Colonoscopy (06/24/2022), TURP - Transurethral resection of prostate (04/27/2022), MR/US fusion guided prostate biopsy (01/21/2022), Urodynamics (12/08/2021), Colonoscopy (10/08/2011), Colonoscopy (08/10/2011), Hemorrhoid operation, Tonsillectomy. Discharge Vitals Heart Rate (Peripheral) 83 Blood Pressure 150/90 Height 70 in Height 178 cm Weight 276.32 lb Weight 125.6 kg BMI 39.64 What to do next You Need to Schedule the Following Appointments Follow Up with TAMIKO SAEZ, ELVIRA Blanco When: Where: [facility] [address] , [place] [address]- Medications What How Much When Why Instructions Unchanged finasteride (finasteride 5 mg Tab) 1 Tablets By Mouth Every day Unchanged amiloride (amiloride 5 mg oral tablet) See instructions Take 2 tablets by mouth once daily Contact prescribing physician if questions or concerns Unchanged amlodipine (amLODIPine 10 mg Tab) 1 Tablets By Mouth Every day Contact prescribing physician if questions or concerns Unchanged aspirin (aspirin 325 mg Tab) 1 Tablets By Mouth Every other day Contact prescribing physician if questions or concerns Unchanged calcium carbonate (calcium (as carbonate) 600 mg oral tablet) 2 Tablets By Mouth Every day Contact prescribing physician if questions or concerns Unchanged carvedilol (Coreg 25 mg Tab) 1 Tablets By Mouth 2 times a day Contact prescribing physician if questions or concerns Unchanged cholecalciferol (Vitamin D 1000 intl units Tab) 3 Tablets By Mouth Every day Contact prescribing physician if questions or concerns Unchanged doxazosin (Cardura 4 mg Tab) 1 Tablets By Mouth Every day Contact prescribing physician if questions or concerns Unchanged erythromycin topical (Erygel 2% topical gel) 1 Application Topical 2 times a day Contact prescribing physician if questions or concerns Unchanged hydrALAZINE (hydrALAZINE 50 mg Tab) 1 Tablets By Mouth 3 times a day Contact prescribing physician if questions or concerns Unchanged hydrochlorothiazide (hydrochlorothiazide 25 mg oral tablet) 1 Tablets By Mouth Every day Contact prescribing physician if questions or concerns Unchanged loratadine (loratadine 10 mg Tab) 1 Tablets By Mouth Every day Contact prescribing physician if questions or concerns Unchanged losartan (losartan 100 mg Tab) 1 Tablets By Mouth Every day Contact prescribing physician if questions or concerns Unchanged lovastatin (lovastatin 20 mg Tab) 1.5 Tablets By Mouth Every day Contact prescribing physician if questions or concerns Unchanged montelukast (Singulair 10 mg Tab) 1 Tablets By Mouth At bedtime Duration: 30 Days Contact prescribing physician if questions or concerns Unchanged multivitamin (B 100 Complex oral tablet) 1 Tablets By Mouth Every day Contact prescribing physician if questions or concerns Unchanged niacin (niacin 500 mg oral tablet) 1 Tablets By Mouth Every day Contact prescribing physician if questions or concerns Unchanged paroxetine (paroxetine 20 mg Tab) 1 Tablets By Mouth Every day Contact prescribing physician if questions or concerns Unchanged potassium chloride (Klor-Con 10 mEq) 7 Tablets By Mouth Every day Contact prescribing physician if questions or concerns Unchanged testosterone (testosterone cypionate 200 mg/ mL IM Angelica) 300 Milligram Intramuscular Every 4 weeks Male hypogonadism Contact prescribing physician if questions or concerns Allergies clarithromycin (Unknown) Problems Ongoing - Any problem that you are currently receiving treatment for. Abnormal results of liver function studies Anxiety asthma BMI 39.0-39.9,adult BPH with urinary obstruction Cardiomyopathy Chronic heart failure Depression Edema, unspecified Encounter for screening colonoscopy Fat (more content not included)... Normal [facility] Patient Educationon 06-15-20 23 Patient Education Urology Benign Prostatic Hyperplasia Benign prostatic hyperplasia (BPH) is an enlarged prostate gland that is caused by the normal aging process. The prostate may get bigger as a man gets older. The condition is not caused by cancer. The prostate is a walnut-sized gland that is involved in the production of semen. It is located in front of the rectum and below the bladder. The bladder stores urine. The urethra carries stored urine out of the body. An enlarged prostate can press on the urethra. This can make it harder to pass urine. The buildup of urine in the bladder can cause infection. Back pressure and infection may progress to bladder damage and kidney (renal) failure. What are the causes? This condition is part of the normal aging process. However, not all men develop problems from this condition. If the prostate enlarges away from the urethra, urine flow will not be blocked. If it enlarges toward the urethra and compresses it, there will be problems passing urine. What increases the risk? This condition is more likely to develop in men older than 50 years. What are the signs or symptoms? Symptoms of this condition include: ? Getting up often during the night to urinate. ? Needing to urinate frequently during the day. ? Difficulty starting urine flow. ? Decrease in size and strength of your urine stream. ? Leaking (dribbling) after urinating. ? Inability to pass urine. This needs immediate treatment. ? Inability to completely empty your bladder. ? Pain when you pass urine. This is more common if there is also an infection. ? Urinary tract infection (UTI). How is this diagnosed? This condition is diagnosed based on your medical history, a physical exam, and your symptoms. Tests will also be done, such as: ? A post-void bladder scan. This measures any amount of urine that may remain in your bladder after you finish urinating. ? A digital rectal exam. In a rectal exam, your health care provider checks your prostate by putting a lubricated, gloved finger into your rectum to feel the back of your prostate gland. This exam detects the size of your gland and any abnormal lumps or growths. ? An exam of your urine (urinalysis). ? A prostate specific antigen (PSA) screening. This is a blood test used to screen for prostate cancer. ? An ultrasound. This test uses sound waves to electronically produce a picture of your prostate gland. Your health care provider may refer you to a specialist in kidney and prostate diseases (urologist). How is this treated? Once symptoms begin, your health care provider will monitor your condition (active surveillance or watchful waiting). Treatment for this condition will depend on the severity of your condition. Treatment may include: ? Observation and yearly exams. This may be the only treatment needed if your condition and symptoms are mild. ? Medicines to relieve your symptoms, including: ? Medicines to shrink the prostate. ? Medicines to relax the muscle of the prostate. ? Surgery in severe cases. Surgery may include: ? Prostatectomy. In this procedure, the prostate tissue is removed completely through an open incision or with a laparoscope or robotics. ? Transurethral resection of the prostate (TURP). In this procedure, a tool is inserted through the opening at the tip of the penis (urethra). It is used to cut away tissue of the inner core of the prostate. The pieces are removed through the same opening of the penis. This removes the blockage. ? Transurethral incision (TUIP). In this procedure, small cuts are made in the prostate. This lessens the prostate's pressure on the urethra. ? Transurethral microwave thermotherapy (TUMT). This procedure uses microwaves to create heat. The heat destroys and removes a small amount of prostate tissue. ? Transurethral needle ablation (TUNA). This procedure uses radio frequencies to destroy and remove a small amount of prostate tissue. ? Interstitial laser coagulation (ILC). This procedure uses a laser to destroy and remove a small amount of prostate tissue. ? Transurethral electrovaporization (TUVP). This procedure uses electrodes to destroy and remove a small amount of prostate tissue. ? Prostatic urethral lift. This procedure inserts an implant to push the lobes of the prostate away from the urethra. Follow these instructions at home: ? Take uxqw-zms-fslxgrw and prescription medicines only as told by your health care provider. ? Monitor your symptoms for any changes. Contact your health care provider with any changes. ? Avoid drinking large amounts of liquid before going to bed or out in public. ? Avoid or reduce how much caffeine or alcohol you drink. ? Give yourself time when you urinate. ? Keep all follow-up visits. This is important. Contact a health care provider if: ? You have unexplained back pain. ? Your symptoms do not get better with treatment. ? You develop side effects from the medicine (more content not included)... Normal [facility] Urology Office/Clinic Noteon 06-15-2023 Urology Office/Clinic Note Chief Complaint 8 month follow up HPI Staff 8 month follow up w/PSA. Current PSA 0.5 done 04/30/23, previous PSA 5.9 done 12/22/21. Previous DX: BPH with urinary obstruction, elevated PSA, gross hematuria, male hypogonadism, urge incontinence. S/P TURP done 04/27/22, MR/US fusion guided prostate biopsy done 01/21/22, Urodynamics done 12/08/21. Dysuria: denies pain or burning Incomplete bladder emptying: rarely Hematuria: denies visible blood Frequency: 2x a day Urgency: denies Nocturia: 1x a night Stream: denies hesitancy, denies weak stream Leaking: denies Post void dripping: denies Wearing pads/ Depends: denies Urge incontinence: denies Stress incontinence: denies Incontinence without Sensory Awareness: denies Abdominal pain: denies Flank pain: chronic back pain Sexual complaints: denies History of Present Illness Tests reviewed: reviewed PSA I have reviewed the previous health record information and history for this patient from Dr. Morrison. I have reviewed and verified the staff HPI to be accurate for this encounter. There have been no associated fever, chills, flank pain, or blood in the urine. Denies any urinary infections since last encounter. Review of Systems ROS - Provider Constitutional: denies weight loss, denies hot flashes. Eyes: denies eye problems. Gastrointestinal: denies nausea, denies vomiting. Cardiovascular: denies chest pain or angina. Integumentary: no dryness Musculoskeletal: denies musculoskeletal symptoms. ENMT: denies otolaryngeal symptoms. Respiratory: no shortness of breath. Heme/Lymph: denies easy bleeding tendency, denies easy bruising tendency. Psychiatric: no confusion, no anxiety. Genitourinary: See HPI. Physical Exam Vitals & Measurements HR: 83(Peripheral) BP: 150/90 HT: 70 in HT: 178 cm WT: 125.6 kg WT: 276.32 lb BMI: 39.64 General Appearance: alert, no distress, well nourished, well developed male. Genitourinary: normal scrotum, normal testes, normal urethra, normal epididymis, normal vas deferens/spermatic cord. Flank Pain: none. Bladder: nonpalpable. Assessment/Plan 1. BPH with urinary obstruction (N40.1: Benign prostatic hyperplasia with lower urinary tract symptoms) S/P TURP 04/27/22. Pt unable to provide urine sample today. Taking Doxazosin [address] Santos, and Finasteride 5 mg qd. IPSS 5 (5). Good flow. Feels he empties completely. No longer has frequency. Started taking his HCTZ in the morning, instead of in the evening, which has improved his nighttime urination. Follow up 1 yr with PSA, JEANNA or sooner if needed. Pt understands and agrees with plan. -Pt to consult with PCP if he can stop Doxazosin. 2. History of elevated PSA (Z87.898: Personal history of other specified conditions) PSA: 12/10/21 - 23.20 presumed lab error 12/22/21 - 5.90 04/30/23 - 0.50 (1.0 Finasteride) MRI of prostate 01/21/22 - Prostate volume 142 cc. A focal area involving the posterior aspect of the L peripheral zone at the level of the mid gland measuring 1.4 x 1.0 cm. PI-RADS 4. Additional focal area involving the posterior aspect of the L peripheral zone at the level of the base measuring 1.4 x 0.7 cm and the posterior aspect of the L peripheral zone at the level of the mid gland measuring 1.7 x 0.9 cm. There appears to be loss of the capsule w/in this region suggestive of extracapsular spread. PI-RADS 5. A focal area involving the L iliac bone possibly representing a bone island. TRUS/transperineal prostate bx 03/02/22 - Path was neg. PSA greatly decreased from prior. Educated pt having TURP allowed excretion of chronic infection allowing the PSA to decrease. Follow-up With When Contact Information TAMIKO SAEZ, Luiz Jackson, [facility] [address], [place] [address]- Additional Instructions: 1 yr with PSA, JEANNA Patient Education Benign Prostatic Hyperplasia IAngelica, personally scribed for Dr. Morrison on 06/15/2023 14:24:17. Documentation recorded by the scribe, Angelica Colmenares, accurately reflects the services(s) I performed and decisions made by me. Authenticated by Dr. Morrison on 06/15/2023 14:26:16.. Problem List/Past Medical History Ongoing Abnormal results of liver function studies Anxiety asthma BMI 39.0-39.9,adult BPH with urinary obstruction Cardiomyopathy Chronic heart failure Depression Edema, unspecified Encounter for screening colonoscopy Fatigue Gross hematuria Heart disease History of elevated PSA Hypercalcemia Hyperglycemia Hyperglycemia Hyperlipidemia Hypertension Hypocalcemia Hypokalemia Hypothyroid Left ventricular failure Male hypogonadism Morbid obesity Obesity Obesity Onychomycosis PVD (peripheral vascular disease) Restless legs syndrome (RLS) Seasonal allergies Sleep apnea Thrombosed external hemorrhoid Tinea pedis Urge incontinence Historical Depression Elevated PS (more content not included)... Normal [facility] Comment on above: Result Comment: Elec tronically Signed By: Luiz MORRISON MD\.br\Date and Time Signed: 06/15/23 14:26 EST\.br\Electronically Co-Signed By: Angelica Colmenares\.br\Date and Time Co-Signed: 06/15/23 14:24 EST PSA Totalon 05-02-2023 Prostate specific Ag [Mass/Vol] 0.5 ng/mL Normal 0.1-3.5 [facility] Comment on above: Result Comment: The concentration of PSA determined by different manufacturers can vary due to differences in assay methods and reagent specificity. Values obtained from different assay methods cannot be used interchangeably. The methodology used for this result was chemiluminescence using [employer] In[employer]ing Hybrite[employer] PSA reagent. Performed By: #### 1 [id number] ####[facility] [address] [place] [address] Consent for Treatmenton 04-09 Consent for Treatment [id number] 0CD:127 Normal [facility] Physician Orderon 04-30-2023 Physician Order [id number]. 00CD:127 Normal [facility] XR Knee Complete 4+ Views Le fton 12-25-2022 XR Knee Complete 4+ Views Left Exam Date/Time: 12/24/2022 15:04 EDT Reason for Exam: [id number] Acute pain of left knee Report IMPRESSION: No acute osseous findings. EXAMINATION/TECHNIQUE: XR Knee Complete 4+ Views Left HISTORY: Fall with left knee pain. COMPARISON: None RESULT: No evidence for acute fracture. No dislocation. No joint effusion. Joint spaces appear maintained with small osteophytes. Soft tissues grossly unremarkable. No other significant abnormality. Ordering Provider: Terri Santos FINAL REPORT Dictated: 12/25/2022 2:03 pm Abraham Javed MD Signed (Electronic Signature): 12/25/2022 2:03 pm Signed by: Abraham Javed MD Transcribed by: REGLA Technologist: LAURIE Technical Comments Radiation Dose: Ka,r in mGy = na DAP = na Normal [facility] XR Spine Lumbosacral Minimum 4 Viewson 12-25-2022 XR Spine Lumbosacral Minimum 4 Views Exam Date/Time: 12/24/2022 15:02 EDT Reason for Exam: M54.41 acute bilateral low back pain with right-sided sciatica Report IMPRESSION: Degenerative changes lumbar spine. EXAMINATION/TECHNIQUE: XR Spine Lumbosacral Minimum 4 Views HISTORY: Lower back pain. COMPARISON: CT 11/19/2021. RESULT: Counting reference: L5-S1 as the last well-formed disc space. No radiographic evidence for acute fracture. Multiple small Schmorl's nodes. Multilevel degenerative changes with severe disc height loss at L5-S1, unchanged. Endplate osteophytes. Facet degenerative changes lower lumbar spine. Visualized sacrum grossly intact. SI joints intact. Mild degenerative changes in the visualized hips. Soft tissues grossly unremarkable. No other significant abnormality. Ordering Provider: Terri Santos FINAL REPORT Dictated: 12/25/2022 2:01 pm Abraham Javed MD Signed (Electronic Signature): 12/25/2022 2:01 pm Signed by: Abraham Javed MD Transcribed by: REGLA Technologist: LAURIE Technical Comments Radiation Dose: Ka,r in mGy = na DAP = na [facility] Consent for Treatmenton 12-06 Consent for Treatment [id number] 0CD:127 [facility] Physician Orderon 12-24-2022 Physician Order [id number]. 00CD:127 [facility] CHEMISTRYOrdered By: SYSTEM SYSTEM on 09-29-2022 Anion gap [Moles/Vol] 11 mmol/L Normal 6 - 16 mEq/L [facility] Remisol Calcium [Mass/Vol] 8.9 mg/dL Normal 8.9 - 11. 1 mg/dL [facility] Chloride [Moles/Vol] 101 mmol/L Normal 101 - 1 11 mmol/L [facility] Creatinine [Mass/Vol] 0.7 mg/dL Normal 0.5 - 1.3 mg/dL [facility] Remisol GFR/1.73 sq M.predicted among blacks MDRD (S/P/Bld) [Vol rate/Area] mL/min/1.73 m2 Normal >=59mL/min/ 1.73 m2 [facility] Chem S GFR/1.73 sq M.predicted among non-blacks MDRD (S/P/Bld) [Vol rate/Area] mL/min/1.73 m2 Normal >=59mL/min/ 1.73 m2 [facility] Chem S Glucose [Mass/Vol] 107 mg/dL Normal 55 - 199 mg/dL [facility] Remisol Potassium [Moles/Vol] 3.8 mmol/L Normal 3.5 - 5.3 mmol/L [facility] Remisol Sodium [Moles/Vol] 136 mmol/L Normal 135 - 145 mmol/L [facility] Remisol Urea nitrogen [Mass/Vol] 17 mg/dL Normal 5 - 21 mg/dL [facility] Remisol Urea nitrogen/Creatinine [Mass ratio] 24 mg/mg High 10 - 20 [facility] Remisol Laboratory - Chemistry and C hemistry - challengeOrdered By: SYSTEM SYSTEM on 09-29-2022 CO2 [Moles/Vol] 28 mmol/L Normal 21 - 31 mmol/L [facility] - Hematology and Cell countsOrdered By: Leonid Leiva on 09-29-2022 HbA1c (Bld) [Mass fraction] 5.8 % Normal <=5.9% [facility] ChemAutoSS No Panel Informationon 09-29 11 {mEq/L} [facility] 6-16 [facility] Work Phone: 101 mmol/L Normal 101-111 [facility] k 600 DO Work Phone: 3.8 mmol/L Normal 3.5-5.3 [facility] Work Phone: 136 mmol/L Normal 135-145 [facility] k 600 DO Work Phone: 8.9 mg/dL Normal 8.9-11.1 [facility] Work Phone: 24 {No_Units} above high threshold 10-20 [facility] [employer] Anthony harris [employer] DO Work Phone: [phone] 0.7 mg/dL Normal 0.5-1.3 [facility] [employer] Anthony Bean DO Work Phone: [phone] 17 mg/dL Normal 5-21 [facility] [employer] DO Work Phone: [phone] 107 mg/dL Normal 55-199 [facility] [employer] Anthony Bean DO Work Phone: [phone] Comment on above: If this glucose resu lt represents a fasting glucose, interpretation should refer to the following reference range: 55-99 mg/dL >60 Normal >=59 [facility] [employer] Anthony harris [employer] DO Work Phone: Comment on above: eGFR is race adjuste d. AA=. Chronic kidney disea se could be indicated at eGFR's of less than 60 mL/min/1.73m2. Kidney failure is indicated at less than 15 mL/min/1.73m2. Falls Screening (Age 18+)on 09-28-2022 Fall risk assessment a) No falls within the last year [facility] [employer] Anthony [employer] DO Work Phone: Office Visit (Cardiology)on 09-28-2022 Follow-up visit Diagnoses/Problems Assessed Essential hypertension (401.9) (I10) Morbid obesity with BMI of 40.0-44.9, adult (278.01,V85.41) (E66.01,Z68.41) Orders Essential hypertension, Hyperlipidemia, Morbid obesity with BMI of 40.0-44.9, adult, Screening for diabetes mellitus Hemoglobin A1C; Status:Active - Retrospective Authorization; Requested for:[id number]; Essential hypertension, Non-ischemic cardiomyopathy Basic Metabolic Panel; Status:Active - Retrospective Authorization; Requested for:[id number]; Hyperlipidemia, Screening for diabetes mellitus Glucose, Fasting; Status:Active - Retrospective Authorization; Requested for:[id number]; Chief Complaint PHU LOPEZ is being seen for hypertension. Patient is in the office for hypertension management. Since we increase his Coreg up to 25 mg twice daily his pressure is now under control. No side effect have been encountered. Present medical therapy therefore be left unchanged. Reminded the patient on the need for further work on losing weight since he is morbidly obese. Current Meds Medication NameInstruction aMILoride HCl - 5 MG Oral TabletTake 1 tablet daily amLODIPine Besylate 5 MG Oral TabletTake 1 tablet daily Aspirin 325 MG Oral Tablet Delayed ReleaseTake 1 tablet daily Calcium + D TABSTAKE DIRECTED. Carvedilol 25 MG Oral TabletTAKE 1 TABLET TWICE DAILY WITH MEALS. Doxazosin Mesylate 4 MG Oral TabletTAKE 1 TABLET DAILY. hydrALAZINE HCl - 50 MG Oral TabletTAKE 1 TABLET 3 TIMES DAILY. hydroCHLOROthiazide 25 MG Oral TabletTAKE 1 TABLET DAILY. Losartan Potassium 100 MG Oral TabletTAKE 1 TABLET DAILY. Lovastatin 20 MG Oral Tablettake 2 tablets every other day, 1 tablet on other days Montelukast Sodium 10 MG Oral TabletTAKE 1 TABLET DAILY. Multi-Vitamin Oral TabletTAKE 1 TABLET DAILY. Elton-3 CAPSTAKE DIRECTED. PARoxetine HCl - 20 MG Oral TabletTAKE 1 TABLET DAILY. Potassium Chloride 20 MEQ TBCRTAKE 7 TABLET Daily Testosterone Cypionate 200 MG/ML Injection Solutiontake once monthly Allergies Medication No Known Drug Allergies Recorded By: Krista Winston; 06/10/2021 7:55:10 AM NonMedication Shellfish Recorded By: Krista Winston; 06/10/2021 7:55:10 AM Vitals Vital Signs Printed in Appendix #1 below. Signatures Electronically signed by : Delores Ac MD; Sep 28 2022 12:53PM EST (Author) Appendix #1 Vital Signs Patient: PHU LOPEZPrashant; : 1955; Recorded: [id number] 12:04PMRecorded: [id number] 11:58AMRecorded: 28Sep2022 11:57AM [id number], LUE, [id number], RUE, Sitting [id number], LUE, [id number], RUE, Sitting Heart Rate80, R Radial Height5 ft 10 in Hmjddu620 lb BMI Xhclrzazdf74.89 kg/m2 BSA Calculated2.43 Falls Screening (Age 18+)a) No falls within the last year Normal [facility] Office Visit (Cardiology)on 09-10-2022 Follow-up visit Diagnoses/Problems Assessed Non-ischemic cardiomyopathy (425.4) (I42.8) Essential hypertension (401.9) (I10) Hyperlipidemia (272.4) (E78.5) Obstructive sleep apnea, adult (327.23) (G47.33) Never a smoker Morbid obesity with BMI of 40.0-44.9, adult (278.01,V85.41) (E66.01,Z68.41) Drug-induced gynecomastia (611.1,E947.9) (N62,T50.905A) Orders Essential hypertension, Non-ischemic cardiomyopathy Start: Carvedilol 25 MG Oral Tablet; TAKE 1 TABLET TWICE DAILY WITH MEALS Morbid obesity with BMI of 40.0-44.9, adult Healthy Weight Tips; Status:Complete - Retrospective Authorization; Done: 10Sep2022 Some eating tips that can help you lose weight.; Status:Complete - Retrospective Authorization; Done: 10Sep2022 SocHx: Never a smoker Tobacco Use Screening; Status:Complete; Done: 10Sep2022 Patient Instructions Please bring all medicines, vitamins, and herbal supplements with you when you come to the office. Prescriptions will not be filled unless you are compliant with your follow up appointments or have a follow up appointment scheduled as per instruction of your physician. Refills should be requested at the time of your visit. labs as ordered per PCP Blood pressure follow up in 3-4 weeks Follow up in 1 year Chief Complaint PHU LOPEZ is being seen for an annual follow-up of. Patient is in the office for follow-up for the problems noted below. 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 He reports no symptoms of dyspnea or chest pain no orthopnea PND and has been compliant with CPAP machine. His weight though has remained unchanged and his blood pressure is elevated today. His heart rate also in the upper normal range. He has been compliant with low-salt diet and does not abuse alcohol. His pressure remains elevated today. He indicated not taking his morning BP medications. Has not had lipid profile which I ordered. Other labs were noted to be acceptable. His cardiovascular and pulmonary examinations were normal. He currently has no side effect of medications. ASSESSMENT AND PLAN: 1. Previous nonischemic cardiomyopathy completely recovered by controlling hypertension. 2. Drug-induced gynecomastia, resolved after stopping spironolactone 3. Hypertension, currently not under control. Advised patient to double Coreg up to 25 mg twice daily. That will help control the heart rate and blood pressure. BP check in few weeks will be scheduled 4. Hyperlipidemia, on medical therapy. Have been controlled, lipid profile is due and was ordered. 5. morbid Obesity. The patient again was reminded for the need to cutback on calorie intake as he has been doing with more exercise to bring his weight under control. 6. Obstructive sleep apnea on CPAP machine, patient has been very compliant Delores Ac MD, [facility] Surgical History Problems History of Complete colonoscopy History of Hemorrhoidectomy Current Meds Medication NameInstruction aMILoride HCl - 5 MG Oral TabletTake 1 tablet daily amLODIPine Besylate 5 MG Oral TabletTake 1 tablet daily Aspirin 325 MG Oral Tablet Delayed ReleaseTake 1 tablet daily Calcium + D TABSTAKE DIRECTED. Carvedilol 12.5 MG Oral TabletTAKE 12.5 TABLET Twice daily Doxazosin Mesylate 4 MG Oral TabletTAKE 1 TABLET DAILY. hydrALAZINE HCl - 50 MG Oral TabletTAKE 1 TABLET 3 TIMES DAILY. hydroCHLOROthiazide 25 MG Oral TabletTAKE 1 TABLET DAILY. Losartan Potassium 100 MG Oral TabletTAKE 1 TABLET DAILY. Lovastatin 20 MG Oral Tablettake 2 tablets every other day, 1 tablet on other days Montelukast Sodium 10 MG Oral TabletTAKE 1 TABLET DAILY. Multi-Vitamin Oral TabletTAKE 1 TABLET DAILY. Elton-3 CAPSTAKE DIRECTED. PARoxetine HCl - 20 MG Oral TabletTAKE 1 TABLET DAILY. Potassium Chloride 20 MEQ TBCRTAKE 7 TABLET Daily Testosterone Cypionate 200 MG/ML Injection Solutiontake once monthly Allergies Medication No Known Drug Allergies Recorded By: Krista Winston; 06/10/2021 7:55:10 AM NonMedication Shellfish Recorded By: Krista Winston; 06/10/2021 7:55:10 AM Social History Problems Caffeine use (V49.89) (Z78.9) Never a smoker No alcohol use No illicit drug use Review of Systems Constitutional: not feeling tired. Cardiovascular: no intermittent leg claudication and as noted in HPI. Respiratory: no cough and no shortness of breath. Gastrointestinal: no change in bowel habits and no blood in stools. Integumentary: no skin rashes. Neurological: no seizures and no frequent falls. All other systems have been reviewed and are negative for complaint. Vitals Vital Signs Recorded: 10Sep2022 10:02AM Heart Rate88, L Radial Qxowrjpr411, RUE, Sitting Zykrxvefw15, RUE, Sitting Height5 ft 10 in Yydois032 lb BMI Glwvljraoj60.32 kg/m2 BSA Calculated2.44 Tobacco Useb) No PHQ-2 #1. Over the last 2 weeks have you felt down, depressed or hopeless? (If yes, answer PHQ-9 below)No PHQ-2 #2. Over the last 2 weeks have you felt little i (more content not included)... Normal GI Track Tobacco Screening.on 023 Adult depression screening assessment No [facility] backstitch [facility] Work Phone: Fall risk assessment a) No falls within the last year [facility] backstitch DO Work Phone: Tobacco use status CP b) No M [facility] backstitch [facility] Work Phone: Chay 04-27-2022 L -- ---- Specimen: [id number] Received: 04/27/22 Status: HALLIE Washburn Num: [id number] Spec Type: Surgical Subm Dr: Luiz Morrison MD Tissues: A Prostate - Tur (PROSTATE TURP) Procedures: LISSETH Stain/8, Gross/Micro L4 ---- Age/ Patient Sex Location Account Attending Physician ---- Phu Lopez 67/M CO [id number] Luiz Morrison MD ---- SPEC NUM: [id number] RECD: 04/27/22 STATUS: HALLIE WASHBURN NUM: [id number] CHAIM: 04/27/221033 [facility] DR: Luiz Morrison MD ENTERED: 04/27/[address]: TERRY TYPE: Surgical DEPT: S ORDERED: HE Stain/8, Gross/Micro L4 ORDERED: HE Stain/8, Gross/Micro L4 Supplemental Report Addendum 1 Entered: 05/03/22 PIN cocktail immunohistochemical study has been performed on block A1. No definite evidence of malignancy identified on the area of concern. [id number] Addendum Signed (signature on file) Landon Perez MD 05/03/22 142 ---- Pathological Diagnosis Prostate, transurethral resection: Prostate tissue with glandular and stromal hyperplasia, chronic inflammation, and prominent cautery effect. 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 See Note. Reactive urothelial mucosa with squamous metaplasia. Note: PIN immunostain pending for evaluation of possible atypical small acinar proliferation, the result will follow supplement report. ---- Specimen: [id number] Received: 04/27/22 Status: HALLIE Washburn Num: [id number] Spec Type: Surgical Subm Dr: Luiz Morrison MD Tissues: A Prostate - Tur (PROSTATE TURP) Procedures: HE Stain/8, Gross/Micro L4 ---- Patient: Phu Lopez [id number] (Continued) ---- Specimen: [id number] Received: 04/27/22 (Continued) Signed (signature on file) Casa Desai MD (Michelle) 04/30/22 1044 ---- Specimen: [id number] Received: 04/27/22 Status: HALLIE Washburn Num: [id number] Spec Type: Surgical Subm Dr: Luiz Morrison MD Tissues: A Prostate - Tur (PROSTATE TURP) Procedures: HE Stain/8, Gross/Micro L4 ---- Patient: Phu Lopez [id number] (Continued) ---- Specimen: [id number] Received: 04/27/22 (Continued) Clinical Information BPH with obstruction Gross Description Received in formalin labeled with the patient's name, number and prostate is a 12 g, 6.5 x 5.0 x 2.5 cm aggregate of mooney-campuzano rubbery tissue fragments.. Entirely submitted in nine cassettes labeled A1-A9. Microscopic Description Nine glass slides with H E stained material have been examined. Pathologist interpretation was performed at [facility]. The microscopic findings support the above pathologic diagnosis. CPT Codes 41804 ---- ---- Specimen: [id number] Received: 04/27/22120 Status: HALLIE Washburn Num: [id number] Spec Type: Surgical Subm Dr: Luiz Morrison MD Tissues: A Prostate - Tur (PROSTATE TURP) Procedures: LISSETH Stain/8, Gross/Micro L4 ---- Patient: Phu Lopez [id number] (Continued) ---- Signed (signature on file) Casa Desai MD (Michelle) 04/30/22 1044 Normal [facility] [place] [place] SARS[place]CoV-2 (COVID-19) RNA MARY+probe Ql (Unsp spec) Negative Normal Negative [facility] Comment on above: Order Comment: Healt hcare Worker?: N Result Comment: Testing for SARS-CoV-2 by RT-PCR This test was developed and its performance characteristics determined by [employer] ([place]) and validated at the [facility]. This test has not been FDA cleared or approved. This test has been authorized by FDA under an Emergency Use Authorization (EUA). This test has been validated in accordance with the FDA's Guidance Document (Policy for Diagnostics Testing in Laboratories Certified to Perform High Complexity Testing under CLIA prior to Emergency Use Authorization for Coronavirus Disease-2019 during the Public Health Emergency) issued on November 08, 2019. This test is only authorized for the duration of time the declaration that circumstances exist justifying the authorization of the emergency use of in vitro diagnostic tests for detection of SARS-CoV-2 virus and/or diagnosis of COVID-19 infection under section 564(b)(1) of the Act, 21 U.S.C. 360bbb-3(b)(1), unless the authorization is terminated or revoked sooner. PERFORMED BY: [place] [address] PATHOLOGIST GRITTING MACHINE OPERATOR TOI BOWER M.D. Performed By: #### C OVID 19 [facility] #### [address] COVID-19 Positive/NegativeOr dered By: Luiz Morrison on 04-23-2022 SARS-CoV-2 (COVID-19) N gene MARY+probe Ql (Resp) Negative Negative [facility] Comment on above: Testing for SARS-CoV -2 by RT-PCR This test was developed and its performance characteristics determined by [employer] ([employer]) and validated at the [facility]. This test has not been FDA cleared or approved. This test has been authorized by FDA under an Emergency Use Authorization (EUA). This test has been validated in accordance with the FDA's Guidance Document (Policy for Diagnostics Testing in Laboratories Certified to Perform High Complexity Testing under CLIA prior to Emergency Use Authorization for Coronavirus Disease-2019 during the Public Health Emergency) issued on November 08, 2019. This test is only authorized for the duration of time the declaration that circumstances exist justifying the authorization of the emergency use of in vitro diagnostic tests for detection of SARS-CoV-2 virus and/or diagnosis of COVID-19 infection under section 564(b)(1) of the Act, 21 U.S.C. 360bbb-3(b)(1), unless the authorization is terminated or revoked sooner. Activated partial thrombopla stin time (aPTT) in platelet poor plasma by coagulation aOrdered By: Luiz Morrison on 04-13-2022 aPTT Coag (PPP) [Time] 29.4 s 25.1-36.5 [facility] Basic Metabolic Panelon Anion gap [Moles/Vol] 13.0 mmol/L Normal 6.0-15.0 [facility] Comment on above: Performed By: #### P T, PTT, CBC, BMP #### [address] Calcium [Mass/Vol] 9.4 mg/dL Normal 8.2-10.2 [facility] Comment on above: Result Comment: PERF ORMED BY: [place] [address] PATHOLOGIST GRITTING MACHINE OPERATOR TOI BOWER M.D. Performed By: #### P T, PTT, CBC, BMP #### [address] Chloride [Moles/Vol] 100 mmol/L Normal 95-114 [facility] Comment on above: Performed By: #### P T, PTT, CBC, BMP #### [facility] [address] [place] [address] CO2 [Moles/Vol] 26.6 mmol/L Normal 22.0-30.0 [facility] Comment on above: Performed By: #### P T, PTT, CBC, BMP #### [facility] [address] [place] [address] Creatinine [Mass/Vol] 0.60 mg/dL Low 0.64-1.27 [facility] Comment on above: Performed By: #### P T, PTT, CBC, BMP #### [facility] [address] [place] [address] [place] Estimated GFR ( Pilar > 60 Normal [facility] Comment on above: Result Comment: GFR estimated reference range: According to KDOQI guidelines, <60 ml/min/1.73m2 is sufficient to diagnose a patient with chronic kidney disease. Performed By: #### P T, PTT, CBC, BMP #### [facility] [address] Estimated GFR (Non- Am > 60 [facility] Comment on above: Performed By: #### P T, PTT, CBC, BMP #### [facility] [address] Glucose [Mass/Vol] 112 mg/dL High 70-100 [facility] Comment on above: Result Comment: [place] Glucose Reference Range is dependent on time and content of last meal. Glucose of more than 200 mg/dL in a nonstressed, ambulatory subject supports the diagnosis of Diabetes Mellitus. ADA recommended reference range Performed By: #### P T, PTT, CBC, BMP #### [address] Potassium [Moles/Vol] 3.6 mmol/L Normal 3.5-5.1 [facility] Comment on above: Performed By: #### P T, PTT, CBC, BMP #### [address] Sodium [Moles/Vol] 136 mmol/L Normal 136-146 [facility] Comment on above: Performed By: #### P T, PTT, CBC, BMP #### [address] Urea nitrogen [Mass/Vol] 7 mg/dL Low 9-23 [facility] Comment on above: Performed By: #### P T, PTT, CBC, BMP #### [place] [address] [place] Basophils Auto (Bld) [#/Vol] Ordered By: Luiz Morrison on 04-13-2022 Basophils (Bld) [#/Vol] 0.0 10*3/uL 0.0-0.2 [facility] Basophils/100 WBC Auto (Bld) Ordered By: Luiz Morrison on 04-13-2022 Basophils/100 WBC (Bld) 0.5 % . [facility] Blood hemoglobin measurement (mass/volume)Ordered By: Luiz Tamiko on 04-13-2022 Hemoglobin (Bld) [Mass/Vol] 14.4 g/dL 13.0-17.0 [facility] Blood leukocytes automated c ount (number/volume)Ordered By: Luiz Morrison on 04-13-2022 WBC (Bld) [#/Vol] 7.0 10*3/uL 4.5-11.0 [facility] Complete Blood Count Auto Di ffon 04-13-2022 Basophils (Bld) [#/Vol] 0.0 10*3/uL Normal 0.0-0.2 [facility] Comment on above: Result Comment: PERF ORMED BY: [place] [address] PATHOLOGIST GRITTING MACHINE OPERATOR TOI BOWER M.D. Performed By: #### P T, PTT, CBC, BMP #### [facility] [address] Basophils/100 WBC (Bld) 0.5 % Normal . [facility] Comment on above: Performed By: #### P T, PTT, CBC, BMP #### [facility] [address] [place] [address] [place] Eosinophils (Bld) [#/Vol] 0.2 10*3/uL Normal 0.0-0.45 [facility] Comment on above: Performed By: #### P T, PTT, CBC, BMP #### [facility] [address] [place] [address] [place] Eosinophils/100 WBC (Bld) 2.4 % Normal . [facility] Comment on above: Performed By: #### P T, PTT, CBC, BMP #### [facility] [address] [place] [address] [place] Erythrocyte distribution width (RBC) [Ratio] 13.3 % Normal 12.0-14.8 [facility] Comment on above: Performed By: #### P T, PTT, CBC, BMP #### [facility] [address] Hematocrit (Bld) [Volume fraction] 42.6 % Normal 38.8-50.0 [facility] Comment on above: Performed By: #### P T, PTT, CBC, BMP #### [address] Hemoglobin (Bld) [Mass/Vol] 14.4 g/dL Normal 13.0-17.0 [facility] Comment on above: Performed By: #### P T, PTT, CBC, BMP #### [address] Lymphocytes (Bld) [#/Vol] 1.2 10*3/uL Normal 1.00-4.8 [facility] Comment on above: Performed By: #### P T, PTT, CBC, BMP #### [address] Lymphocytes/100 WBC (Bld) 17.7 % Normal . [facility] Comment on above: Performed By: #### P T, PTT, CBC, BMP #### [address] MCH (RBC) [Entitic mass] 30.6 pg Normal 27.5-35.2 [facility] Comment on above: Performed By: #### P T, PTT, CBC, BMP #### [address] MCV (RBC) [Entitic vol] 90.7 fL Normal 83.5-101 [facility] Comment on above: Performed By: #### P T, PTT, CBC, BMP #### [address] Mean Corpuscular HGB Conc 33.8 g/dL Normal 32.5-35.6 [facility] Comment on above: Performed By: #### P T, PTT, CBC, BMP #### [address] Monocytes (Bld) [#/Vol] 0.7 10*3/uL Normal 0.0-0.8 [facility] Comment on above: Performed By: #### P T, PTT, CBC, BMP #### [address] Monocytes/100 WBC (Bld) 9.7 % Normal . [facility] Comment on above: Performed By: #### P T, PTT, CBC, BMP #### [address] Neutrophils (Bld) [#/Vol] 4.9 10*3/uL Normal 1.8-7.7 [facility] Comment on above: Performed By: #### P T, PTT, CBC, BMP #### [address] Neutrophils/100 WBC (Bld) 69.7 % Normal . [facility] Comment on above: Performed By: #### P T, PTT, CBC, BMP #### [address] Nucleated RBC/100 WBC (Bld) [Ratio] 0.0 % Normal 0-0.5 [facility] Comment on above: Performed By: #### P T, PTT, CBC, BMP #### [address] Platelet mean volume (Bld) [Entitic vol] 9.2 fL Normal 6.6-10.1 [facility] Comment on above: Performed By: #### P T, PTT, CBC, BMP #### [address] Platelets (Bld) [#/Vol] 265 10*3/uL Normal 150-450 [facility] Comment on above: Performed By: #### P T, PTT, CBC, BMP #### [address] RBC (Bld) [#/Vol] 4.70 10*6/uL Normal 3.90-5.60 [facility] Comment on above: Performed By: #### P T, PTT, CBC, BMP #### [facility] [address] WBC (Bld) [#/Vol] 7.0 10*3/uL Normal 4.5-11.0 [facility] Comment on above: Performed By: #### P T, PTT, CBC, BMP #### [facility] [address] [place] [address] Creatinine and Glomerular fi ltration rate.predicted panel (S/P/Bld)Ordered By: Luiz Morrison on 04-13-2022 Creatinine [Mass/Vol] 0.60 mg/dL 0.64-1.27 [facility] ECG 12 lead ECGon 04-13-2022 ECG 12 lead ECG [facility] [place] [address] [place] [address] Electrocardiograph Report Signed Patient: Phu Lopez MR#: [id number] : 1955 Acct:[id number] Age/Sex: 67 / M ADM Date: 04/13/22 Loc: Room: Type: [facility] Attending Dr: Luiz Morrison MD Ordering Provider: Luiz Morrison MD Date of Service: 04/13/2201/27/715 ECG/ECG 12 lead ECG: Pre-op Urology surgery Copies to: Test Reason : Blood Pressure : / mmHG Vent. Rate : 081 BPM Atrial Rate : 081 BPM P-R Int : 152 ms QRS Dur : 118 ms QT Int : 410 ms P-R-T Axes : 056 -14 039 degrees QTc Int : 476 ms Normal sinus rhythm Nonspecific intraventricular conduction delay Normal ECG No previous ECGs available Confirmed by ROXIE GUSMAN MD ([id number]) on 04/13/2022 2:31:03 PM Referred By: TOM MORRISON Electronically Signed By:ROXIE GUSMAN MD Transcribed By: MUS Signed By Roxie Gusman MD 1431 Normal [facility] Eosinophils Auto (Bld) [#/Vo l]Ordered By: Luiz Morrison on 04-13-2022 Eosinophils (Bld) [#/Vol] 0.2 10*3/uL 0.0-0.45 [facility] Eosinophils/100 WBC Auto (Bl d)Ordered By: Luiz Morrison on 04-13-2022 Eosinophils/100 WBC (Bld) 2.4 % . [facility] Erythrocyte distribution wid th Auto (RBC) [Ratio]Ordered By: Luiz Morrison on 04-13-2022 Erythrocyte distribution width (RBC) [Ratio] 13.3 % 12.0-14.8 [facility] Estimated glomerular filtrat ion rate (GFR) non- AmericanOrdered By: Luiz Morrison on 04-13-2022 GFR/1.73 sq M.predicted among non-blacks MDRD (S/P/Bld) [Vol rate/Area] > 60 mL/Min [facility] Hematocrit Auto (Bld) [Volum e fraction]Ordered By: Luiz Morrison on 04-13-2022 Hematocrit (Bld) [Volume fraction] 42.6 % 38.8-50.0 [facility] Laboratory - CoagulationOrde red By: Luiz Morrison on 04-13-2022 PT Coag (PPP) [Time] 10.8 s 9.0-12.9 [facility] - Hematology and Cell countsOrdered By: Luiz Morrison on 04-13-2022 Nucleated RBC/100 WBC (Bld) [Ratio] 0.0 % 0-0.5 [facility] Lymphocytes Auto (Bld) [#/Vo l]Ordered By: Luiz Morrison on 04-13-2022 Lymphocytes (Bld) [#/Vol] 1.2 10*3/uL 1.00-4.8 [facility] Lymphocytes/100 WBC Auto (Bl d)Ordered By: Luiz Morrison on 04-13-2022 Lymphocytes/100 WBC (Bld) 17.7 % . [facility] MCH Auto (RBC) [Entitic mass ]Ordered By: Luiz Morrison on 04-13-2022 MCH (RBC) [Entitic mass] 30.6 pg 27.5-35.2 [facility] MCHC Auto (RBC) [Mass/Vol]Or dered By: Luiz Morrison on 04-13-2022 MCHC (RBC) [Mass/Vol] 33.8 g/dL 32.5-35.6 [facility] MCV Auto (RBC) [Entitic vol] Ordered By: Luiz Morrison on 04-13-2022 MCV (RBC) [Entitic vol] 90.7 fL 83.5-101 [facility] Monocytes Auto (Bld) [#/Vol] Ordered By: Luiz Morrison on 04-13-2022 Monocytes (Bld) [#/Vol] 0.7 10*3/uL 0.0-0.8 [facility] Monocytes/100 WBC Auto (Bld) Ordered By: Luiz Morrison on 04-13-2022 Monocytes/100 WBC (Bld) 9.7 % . [facility] Neutrophils Auto (Bld) [#/Vo l]Ordered By: Luiz Morrison on 04-13-2022 Neutrophils (Bld) [#/Vol] 4.9 10*3/uL 1.8-7.7 [facility] Neutrophils/100 WBC Auto (Bl d)Ordered By: Luiz Morrison on 04-13-2022 Neutrophils/100 WBC (Bld) 69.7 % . [facility] No Panel InformationOrdered By: Luiz Morrison on 04-13-2022 Estimated GFR () > 60 mL/Min [facility] Comment on above: GFR estimated refere nce range: According to KDOQI guidelines, <60 ml/min/1.73m2 is sufficient to diagnose a patient with chronic kidney disease. Pharmacy Creatinine Clearance (Chem N/A [facility] Partial Thromboplastin Timeo n 04-13-2022 aPTT Coag (Bld) [Time] 29.4 s Normal 25.1-36.5 [facility] Comment on above: Result Comment: PERF ORMED BY: [place] [address] PATHOLOGIST GRITTING MACHINE OPERATOR TOI BOWER M.D. Performed By: #### P T, PTT, CBC, BMP #### [address] Platelet mean volume Auto (B ld) [Entitic vol]Ordered By: Luiz Morrison on 04-13-2022 Platelet mean volume (Bld) [Entitic vol] 9.2 fL 6.6-10.1 [facility] Platelet poor plasma interna tional normalized ratio (INR) by coagulation assay (relatOrdered By: Luiz Morrison on 04-13-2022 INR Coag (PPP) [Relative time] 1.0 {INR} [facility] Comment on above: INR Therapeutic Rang e A) Pre- and Peroperative OAT started two weeks before surgery. NOT HIP SURGERY: 1.5 - 2.5 HIP SURGERY: 2 - 3 B) Primary and secondary prevention of venous THROMBOSIS: 2 - 3 C) Active venous thrombosis, pulmonary embolism and prevention of recurrent venous thrombosis: 2 - 3 D) Prevention of arterial thromboembolism including patients with mechanical heart valves: 3 - 4.5 Platelets Auto (Bld) [#/Vol] Ordered By: Luiz Morrison on 04-13-2022 Platelets (Bld) [#/Vol] 265 10*3/uL 150-450 [facility] Prothrombin Time INRon 04-13 INR Coag (PPP) [Relative time] 1.0 {INR} Normal [facility] Comment on above: Result Comment: INR Therapeutic Range A) Pre- and Peroperative OAT started two weeks before surgery. NOT HIP SURGERY: 1.5 - 2.5 HIP SURGERY: 2 - 3 B) Primary and secondary prevention of venous THROMBOSIS: 2 - 3 C) Active venous thrombosis, pulmonary embolism and prevention of recurrent venous thrombosis: 2 - 3 D) Prevention of arterial thromboembolism including patients with mechanical heart valves: 3 - 4.5 Performed By: #### P T, PTT, CBC, BMP #### [facility] [address] PT Coag (PPP) [Time] 10.8 s Normal 9.0-12.9 [facility] Comment on above: Performed By: #### P T, PTT, CBC, BMP #### [facility] [address] RBC Auto (Bld) [#/Vol]Ordere d By: Luiz Morrison on 04-13-2022 RBC (Bld) [#/Vol] 4.70 10*6/uL 3.90-5.60 [facility] Serum or plasma anion gap de terminationOrdered By: Luiz Morrison on 04-13-2022 Anion gap [Moles/Vol] 13.0 mmol/L 6.0-15.0 [facility] Serum or plasma calcium anne urement (mass/volume)Ordered By: Luiz Morrison on 04-13-2022 Calcium [Mass/Vol] 9.4 mg/dL 8.2-10.2 [facility] Serum or plasma chloride neo surement (moles/volume)Ordered By: Luiz Morrison on 04-13-2022 Chloride [Moles/Vol] 100 mmol/L 95-114 [facility] Serum or plasma glucose anne urement (mass/volume)Ordered By: Liuz Morrison on 04-13-2022 Glucose [Mass/Vol] 112 mg/dL 70-100 [facility] Comment on above: ADA recommended refe rence range Random Glucose Reference Range is dependent on time and content of last meal. Glucose of more than 200 mg/dL in a nonstressed, ambulatory subject supports the diagnosis of Diabetes Mellitus. Serum or plasma potassium me asurement (moles/volume)Ordered By: Luiz Morrison on 04-13-2022 Potassium [Moles/Vol] 3.6 mmol/L 3.5-5.1 [facility] Serum or plasma sodium measu rement (moles/volume)Ordered By: Luiz Morrison on 04-13-2022 Sodium [Moles/Vol] 136 mmol/L 136-146 [facility] Serum or plasma total carbon dioxide measurement (moles/volume)Ordered By: Luiz Morrison on 04-13-2022 CO2 [Moles/Vol] 26.6 mmol/L 22.0-30.0 [facility] Serum or plasma urea nitroge n measurement (mass/volume)Ordered By: Luiz Morrison on 04-13-2022 Urea nitrogen [Mass/Vol] 7 mg/dL 9-23 [facility] CHEMISTRYOrdered By: Gabriel rendon on 04-01-2022 HbA1c (Bld) [Mass fraction] 5.3 % Normal <=5.9% [facility] ChemAuto[employer] Creatinine (Bld) [Mass/Vol]O rdered By: Luiz Morrison on 01-21-2022 Creatinine [Mass/Vol] 0.8 mg/dL 0.6-1.3 [facility] Comment on above: ER/ESD physician is notified/shown all ISTAT results. Critical values may be confirmed by laboratory testing if deemed necessary by ER attending doctor. No Panel InformationOrdered By: Luiz Morrison on 01-21-2022 POC Estimated GFR > 60 [facility] Comment on above: GFR estimated refere nce range: According to KDOQI guidelines, <60 ml/min/1.73m2 is sufficient to diagnose a patient with chronic kidney disease. POC Estimated GFR Non- Amer > 60 [facility] CHEMISTRYOrdered By: SYSTEM SYSTEM on 12-22-2021 Free PSA [Mass/Vol] 0.7 ng/mL Invalid Interpretation Code [facility] Free PSA/Total PSA [Mass fraction] 11.0 % Low >=25.0% [facility] Prostate specific Ag [Mass/Vol] 5.9 ng/mL High 0.1 - 3.5 ng/mL [facility] CHEMISTRYOrdered By: SYSTEM SYSTEM on 12-10-2021 Albumin [Mass/Vol] 3.3 g/dL Normal 3.3 - 5.0 gm/dL [facility] Albumin/Globulin [Mass ratio] 0.9 {ratio} Low 1.1 - 2.2 [facility] ALP [Catalytic activity/Vol] 46 [iU]/d Normal 21 - 98 Int._Unit/L [facility] ALT No additional P-5'-P [Catalytic activity/Vol] 22 [iU]/d Normal 6 - 46 Int._Unit/L [facility] Anion gap [Moles/Vol] 12 mmol/L Normal 6 - 16 mEq/L [facility] AST [Catalytic activity/Vol] 18 [iU]/d Normal 5 - 43 Int._Unit/L [facility] Bilirubin [Mass/Vol] 0.7 mg/dL Normal 0.0 - 1 .1 mg/dL [facility] Calcium [Mass/Vol] 8.9 mg/dL Normal 8.9 - 11. 1 mg/dL [facility] Chloride [Moles/Vol] 102 mmol/L Normal 101 - 1 11 mmol/L [facility] CO2 [Moles/Vol] 27 mmol/L Normal 21 - 31 mmol/L [facility] Creatinine [Mass/Vol] 0.7 mg/dL Normal 0.5 - 1.3 mg/dL [facility] Remisol GFR/1.73 sq M.predicted among blacks MDRD (S/P/Bld) [Vol rate/Area] mL/min/1.73 m2 Normal >=59mL/min/ 1.73 m2 [facility] Chem S GFR/1.73 sq M.predicted among non-blacks MDRD (S/P/Bld) [Vol rate/Area] mL/min/1.73 m2 Normal >=59mL/min/ 1.73 m2 [facility] Chem S Globulin (S) [Mass/Vol] 3.8 g/dL Normal 1.4 - 4.0 gm/dL [facility] Remisol Glucose [Mass/Vol] 96 mg/dL Normal 55 - 199 mg/dL [facility] Potassium [Moles/Vol] 4.2 mmol/L Normal 3.5 - 5.3 mmol/L [facility] Prostate specific Ag [Mass/Vol] 23.2 ng/mL High 0.1 - 3.5 ng/mL [facility] Protein [Mass/Vol] 7.1 g/dL Normal 6.0 - 7.8 gm/dL [facility] Sodium [Moles/Vol] 137 mmol/L Normal 135 - 145 mmol/L [facility] Urea nitrogen [Mass/Vol] 12 mg/dL Normal 5 - 21 mg/dL [facility] Urea nitrogen/Creatinine [Mass ratio] 17 mg/mg Normal 10 - 20 [facility] HEMATOLOGYOrdered By: tSephanie jamison on 12-10-2021 Erythrocyte distribution width (RBC) [Ratio] 13.4 % Normal 10.9 - 14.2 % [facility] HemeAutoSS Hematocrit (Bld) [Volume fraction] 39.2 % Normal 37.7 - 49.0 % [facility] Hemoglobin (Bld) [Mass/Vol] 13.5 g/dL Normal 13.5 - 17.5 gm/dL [facility]eAutoSS MCH (RBC) [Entitic mass] 30.8 pg Normal 27.0 - 34.0 pg [facility]eAutoSS MCHC (RBC) [Mass/Vol] 34.6 g/dL Normal 31.4 - 36.0 gm/dL [facility]eAutoSS MCV (RBC) [Entitic vol] 89.0 fL Normal 80.0 - 100.0 fL [facility] Platelet mean volume (Bld) [Entitic vol] 8.6 fL Normal 6.4 - 10.8 fL [facility]eAutoSS Platelets (Bld) [#/Vol] 270.0 E9/L Normal 150. 0 - 500.0 E9/L [facility]eAutoSS RBC (Bld) [#/Vol] 4.4 E12/L Normal 4.3 - 5.9 E12/L [facility]eAutoSS WBC corrected for nucl RBC Auto (Bld) [#/Vol] 8.4 E9/L Normal 4.0 - 11.0 E9/L [facility]SS CHEMISTRYOrdered By: SYSTEM SYSTEM on 11-19-2021 Creatinine [Mass/Vol] 0.7 mg/dL Normal 0.5 - 1.3 mg/dL [facility] Remisol GFR/1.73 sq M.predicted among blacks MDRD (S/P/Bld) [Vol rate/Area] mL/min/1.73 m2 Normal >=59mL/min/ 1.73 m2 [facility] Chem S GFR/1.73 sq M.predicted among non-blacks MDRD (S/P/Bld) [Vol rate/Area] mL/min/1.73 m2 Normal >=59mL/min/ 1.73 m2 [facility] Chem S Tobacco Screening.on 022 Fall risk assessment a) No falls within the last year [facility] k 600 DO Work Phone: Tobacco use status [facility] b) No M [facility] k 600 DO Work Phone: CORONAVIRUS 2019 BY PCRon SARS-CoV-2 (COVID-19) RNA MARY+probe Ql (Unsp spec) Not detected Normal Not Detected [facility] Comment on above: Result Comment: . This assay is designed to detect SARS-CoV-2 based on replication of specific regions of the RNA from the SARS-CoV-2 virus. A Not Detected result does not preclude 2019-nCoV infection since the adequacy of sample collection and/or low viral burden may result in presence of viral nucleic acids below the clinical sensitivity of this test method. Fact sheet for providers: https://www.fda.gov/media/071336/download Fact sheet for patients: https://www.fda.gov/media/895818/download This test has received FDA Emergency Use Authorization [EUA] and has been verified by [facility] ([facility]). This test is only authorized for the duration of time that circumstances exist to justify the authorization of the emergency use of in vitro diagnostic tests for the detection of SARS-CoV-2 virus and/or diagnosis of COVID-19 infection under section 564(b)(1) of the Act, 21 U.S.C. 360bbb-3(b)(1), unless the authorization is terminated or revoked sooner. [facility] is certified under CLIA-88 as qualified to perform high complexity testing. Testing is performed in the [facility] laboratories located at [address] [place] [address]. Performed By: #### C OV19 #### [address] [place] [address] Covid 19 Resultson 1 SARS-CoV-2 (COVID-19) RNA MARY+probe Ql (Unsp spec) NEGATIVE COVID-19 Test Coronaviruses are common world-wide and are the cause of many common colds. SARS-COV2 is a new coronavirus that began circulating worldwide in 2019 so we are calling it COVID-19. It has been estimated that four out of five patients with COVID-19 will recover at home without the need for medical attention. Symptoms of COVID-19 may include cough, fever, shortness of breath, loss of taste or smell and other flu-like symptoms including chills, sore muscles, sore throat, and headache. Severe illness is more common in older people and people with other health problems such as high blood pressure, obesity, and immune system problems. If the test is positive, you have COVID-19. You will be contacted by the ordering physicians office and instructed to remain on home isolation, in accordance with CDC guidelines. You may also be contacted by the [facility] to see if any of your close contacts may have been exposed to the virus and need to quarantine. If the test is negative, you likely do not have COVID-19 at this time, but you still may have a different illness that can spread to other people (like Influenza, or the Flu) and could still be at risk for getting COVID-19. We recommend that you stay away from other people to limit the spread of illness until your symptoms are improving and you are fever-free for 24 hours without the use of fever lowering medications such as acetaminophen or ibuprofen. No test is 100% accurate so if you are still concerned you may have COVID-19, talk to your doctor about the need to continue to stay away from others. Medicines Unless your provider told you not to use the following: Acetaminophen (Tylenol and others) is generally safe. Anti-inflammatory medications, such as Ibuprofen (Advil or Motrin) or Naproxen (Aleve) can also be used. Lgsp-kwa-pmqdpqd cough and cold medicines can be used according to the instructions on the package. Some jlbv-vfd-aqjsmww medicines also contain acetaminophen. Make sure you are not taking more than your recommended dose. For those not hospitalized, there is no specific treatment available for this illness. Antibiotics do not treat Coronaviruses. Follow-Up Follow up with your doctor by scheduling a virtual visit or consider follow-up at one of our urgent care fever clinics. If you are having difficulty breathing, or are very weak and having difficulty standing, this is a medical emergency. Call 911 or have someone take you to the nearest emergency room immediately. If possible, wear a facemask. Additional guidance from the CDC for patients who tested POSITIVE for COVID-19 How to isolate: Isolate yourself in a specific room at home and limit your contact with others. Use a separate bathroom from other members of the household, when possible. Leave home only to get essential medical care. Do not go to work, school or public areas. Avoid using public transportation, ride-sharing, or taxis. Restrict contact with pets and other animals. If you must care for your pet or be around animals while you are sick, wash your hands before and after your interaction and wear a facemask. Make sure that shared spaces in the home have good airflow, such as by an air conditioner or an opened window, weather permitting. Personal Hygiene Procedures: Wear a face mask when in the same room as other people or pets. If a face mask interferes with your breathing, others should wear a mask when sharing space with you. Frequent hand-washing: wash your hands with soap and water for at least 20 seconds. If soap and water are not available, use alcohol-based hand rehabilitation inspector. Avoid touching your eyes, nose, and mouth with unwashed hands. Household Hygiene Procedures: Avoid sharing personal household items such as dishes, glassware, cups, eating utensils, towels or bedding with other people or pets in your home. After use, these items should be washed with soap and hot water. Disinfect all high-touch surfaces every day with antibacterial cleaning solutions such as Lysol wipes, bleach, cleansers, etc. High-touch surfaces include tabletops, doorknobs, bathroom fixtures, toilets, phones, keyboards, tablets and bedside tables. Immediately clean any surfaces that may have blood, poop or body fluids on them, using antibacterial cleaning solutions such as Lysol wipes, bleach, cleansers, etc. If clothing or bedding come into contact with blood, poop or body fluids, they should be washed immediately. Follow the directions on the laundry detergent and clothing labels but hot water is recommended when possible. Stopping home isolation precautions: If possible, consult your doctor before stopping home isolation precautions. According to the CDC, you can discontinue home isolation precautions when you have met both of these criteria: Your fever and respiratory symptoms have been gone for 24 matias (more content not included)... [facility] CORONAVIRUS 2019 BY PCRon DATE OF SYMPTOM ONSET [YYYYMMDD]? [id number] [facility] Comment on above: Performed By: #### C OV19 #### [facility] [address] [place] [address] Lab Specimen Source Nasal, Nasopharyngeal [facility] Comment on above: Performed By: #### C OV19 #### [facility] [address] [place] [address] Provider Note - ED v2on 08 Provider Note - ED v2 Provider Note - ED v2: Chart Review: HISTORY OF PRESENTING ILLNESS PHU is a 66 year old Male and was seen by me at 10-Mar-2021 13:00 for a chief complaint of cold symptoms. The historian is the patient. Additional Details: Patient presents with 2-day history of cold symptoms, and his work wants him COVID tested. Patient endorses cough, sinus congestion/drainage, and sneezing that he attributes to seasonal allergies. Patient denies fever, chills, nausea, vomiting, diarrhea, chest pain, shortness of breath, body aches, loss of sense of smell/taste. He endorses no OTC meds for his s/s. He states he is vaccinated. Triage Information: Most recent Vital Sign Value Date PAST MEDICAL HISTORY ATTESTATION: I have reviewed and confirmed nurse's/medic's notes for patient's medications, allergies, and medical, surgical, family and social history ALLERGIES/INTOLERANCES : Allergy Allergen: Biaxin Type: Drug Reaction: Unknown HEALTH HISTORY: No documented data. OUTPATIENT MEDICATIONS: Home Medications Review Status for Reconciliation: Complete Med Status: Patient Currently Takes Medications Drug Name: carvedilol Instructions: 37.5 milligram(s) orally once a day Drug Name: amLODIPine 10 mg oral tablet Instructions: 1 tab(s) orally once a day Drug Name: doxazosin 4 mg oral tablet Instructions: 1 tab(s) orally once a day Drug Name: potassium chloride Instructions: 70 milliequivalent(s) orally once a day Drug Name: Paxil 20 mg oral tablet Instructions: 1 tab(s) orally once a day, As Needed Drug Name: losartan 100 mg oral tablet Instructions: 1 tab(s) orally once a day Drug Name: hydroCHLOROthiazide 25 mg oral tablet Instructions: 1 tab(s) orally once a day Drug Name: hydrALAZINE Instructions: 150 milligram(s) orally once a day Drug Name: montelukast 10 mg oral tablet Instructions: 1 tab(s) orally once a day Drug Name: testosterone cypionate Instructions: 300 unit(s) intramuscular once a month Drug Name: fluticasone 50 mcg/inh nasal spray Instructions: 1 spray(s) in each nostril once a day SIGNIFICANT EVENTS: Other Description:NON SMOKER Additional Notes:06/2020 Past Medical History Description:CARDIOMYOP ATHY Additional Notes:06/2020 Description:LOW POTASSIUM Additional Notes:06/2020 Description:SLEEP APNEIA Additional Notes:06/2020 Description:LOWER EXTREMITY EDEMIA Additional Notes:06/2020 Past Surgical History Description:NO SURGICAL HISTORY THIS YEAR Additional Notes:06/2020 REVIEW OF SYSTEMS CONSTITUTIONAL: Negative for: chills, diaphoresis, fever and malaise ENMT Ears: Negative for: hearing disturbance Nose: POSITIVE for: congestion, discharge and sneezing Throat/Neck: Negative for: throat pain CARDIOVASCULAR: Negative for: chest pain RESPIRATORY: Negative for: cough, dyspnea and wheezing GASTROINTESTINAL: Negative for: diarrhea, nausea and vomiting; MUSCULOSKELETAL: Negative for: pain NEUROLOGICAL: Negative for: headache; All other systems reviewed and are negative RESULTS/VITAL SIGNS VITAL SIGNS: T PRBP SpO2O2(LPM) %FiO2 Method 10-Mar-2021 13:09:[id number] 95 PHYSICAL EXAM CONSTITUTIONAL: Appearance: well appearing Development: well developed Distress: no apparent Manner: appropriate for situation Mentation: awake and alert Mood: appropriate Nourishment: well HENMT: Head Examination: atraumatic Face: no signs of abnormality EYES: Bilteral Eyes: clear and PERRL Left Conjunctiva: clear Right Conjunctiva: clear CARDIOVASCULAR: Cardiac Rhythm: regular Cardiac Rate: normal RESPIRATORY: Respiratory Distress: no respiratory distress Breath Sounds: normal breath sounds Rales: no rales Wheezes: no wheezes Rhonchi: no rhonchi NEUROLOGICAL: Level of Consciousness: alert and follows commands Memory: memory/cognition intact Speech: clear Gait and Weight Bearing: normal SKIN: Skin normal color for race, warm, dry and intact. No evidence of trauma. PSYCHIATRIC: Alert and oriented to person, place, time/situation. normal mood and affect. No apparent risk to self or others. MEDICAL DECISION MAKING/ED COURSE MDM/ED COURSE: Differential Diagnosis: (URI, COVID, sinusitis, allergic rhinitis) Discussed Findings with: patient Data Reviewed: vital signs Awaiting: lab results Treatment Plan: Discussed supportive measures, and symptom management. Discussed etiology of more routine viral infection versus COVID infection. Ordered fluticasone nasal and mucinex DM. Swabbed for COVID, advised pt turnaround time is about 24 hours, advised self-isolation until results come back. Advised pt to continue monitoring symptoms. Patient verbalized understanding. The pt's clinical presentation is otherwise unremarkable at this time. Based on exam and clinical findings the pt is stable for discharge with instruction (more content not included)... Normal [facility] CORONAVIRUS 2019 BY PCRon SARS-CoV-2 (COVID-19) RNA MARY+probe Ql (Unsp spec) Not detected Normal Not Detected [facility] Comment on above: Result Comment: . This assay is designed to detect the N, ORF1ab and/or S genes of SARS-CoV-2 via nucleic acid amplification. A Negative (NOT DETECTED) result does not preclude 2019-nCoV infection since the adequacy of sample collection and/or low viral burden may result in presence of viral nucleic acids below the clinical sensitivity of this test method. Negative (NOT DETECTED) result should not be used as the sole basis for treatment or other patient management decisions. Rather negative results should be combined with clinical observations, patient history, and epidemiological information to make patient management decisions. Fact sheet for providers: https://www.fda.gov/media/625748/download Fact sheet for patients: https://www.fda.gov/media/953644/download This test has received FDA Emergency Use Authorization (EUA) and has been verified by [facility] ([facility]). This test is only authorized for the duration of time that circumstances exist to justify the authorization of the emergency use of in vitro diagnostic tests for the detection of SARS-CoV-2 virus and/or diagnosis of COVID-19 infection under section 564(b)(1) of the Act, 21 U.S.C. 360bbb-3(b)(1), unless the authorization is terminated or revoked sooner. [facility] is certified under CLIA-88 as qualified to perform high complexity testing. Testing is performed in the [facility] laboratories located at [address] [place] [address]. Performed By: #### C OV19 #### [address] [place] [address] Covid 19 Resultson 1 SARS-CoV-2 (COVID-19) RNA MARY+probe Ql (Unsp spec) NEGATIVE COVID-19 Test Coronaviruses are common world-wide and are the cause of many common colds. SARS-COV2 is a new coronavirus that began circulating worldwide in 2019 so we are calling it COVID-19. It has been estimated that four out of five patients with COVID-19 will recover at home without the need for medical attention. Symptoms of COVID-19 include cough, fever, shortness of breath, loss of taste or smell and other flu-like symptoms including chills, sore muscles, sore throat, and headache. Severe illness is more common in older people and people with other health problems such as high blood pressure, obesity, and immune system problems. If the test is positive, you have COVID-19. You will be contacted by the ordering physicians office and instructed to remain on home isolation, in accordance with CDC guidelines. You may also be contacted by the [facility] to see if any of your close contacts may have been exposed to the virus and need to quarantine. If the test is negative, you likely do not have COVID-19 at this time, but you still may have a different illness that can spread to other people (like Influenza, or the Flu) and could still be at risk for getting COVID-19. We recommend that you stay away from other people to limit the spread of illness until your symptoms are improving and you are fever-free for 24 hours without the use of fever lowering medications such as acetaminophen or ibuprofen. No test is 100% accurate so if you are still concerned you may have COVID-19, talk to your doctor about the need to continue to stay away from others. Medicines Acetaminophen (Tylenol and others) is generally safe. Anti-inflammatory medications, such as Ibuprofen (Advil or Motrin) or Naproxen (Aleve) can also be used. Sfjs-sgc-ixqynap cough and cold medicines can be used according to the instructions on the package. Some eoeo-xdq-yjvxgwd medicines also contain acetaminophen. Make sure you are not taking more than your recommended dose For those not hospitalized, there is no specific treatment available for this illness. Antibiotics do not treat Coronaviruses. Follow-Up Follow up with your doctor by scheduling a virtual visit or consider follow-up at one of our urgent care fever clinics. If you are having difficulty breathing, or are very weak and having difficulty standing, this is a medical emergency. Call 911 or have someone take you to the nearest emergency room immediately. If possible, wear a facemask. Additional guidance from the CDC for patients who tested POSITIVE for COVID-19 How to isolate: Isolate yourself in a specific room at home and limit your contact with others. Use a separate bathroom from other members of the household, when possible. Leave home only to get essential medical care. Do not go to work, school or public areas. Avoid using public transportation, ride-sharing, or taxis. Restrict contact with pets and other animals. If you must care for your pet or be around animals while you are sick, wash your hands before and after your interaction and wear a facemask. Make sure that shared spaces in the home have good airflow, such as by an air conditioner or an opened window, weather permitting. Personal Hygiene Procedures: Wear a face mask when in the same room as other people or pets. If a face mask interferes with your breathing, others should wear a mask when sharing space with you. Frequent hand-washing: wash your hands with soap and water for at least 20 seconds. If soap and water are not available, use alcohol-based hand rehabilitation inspector. Avoid touching your eyes, nose, and mouth with unwashed hands. Household Hygiene Procedures: Avoid sharing personal household items such as dishes, glassware, cups, eating utensils, towels or bedding with other people or pets in your home. After use, these items should be washed with soap and hot water. Disinfect all high-touch surfaces every day with antibacterial cleaning solutions such as Lysol wipes, bleach, cleansers, etc. High-touch surfaces include tabletops, doorknobs, bathroom fixtures, toilets, phones, keyboards, tablets and bedside tables. Immediately clean any surfaces that may have blood, poop or body fluids on them, using antibacterial cleaning solutions such as Lysol wipes, bleach, cleansers, etc. If clothing or bedding come into contact with blood, poop or body fluids, they should be washed immediately. Follow the directions on the laundry detergent and clothing labels but hot water is recommended when possible. Stopping home isolation precautions: If possible, consult your doctor before stopping home isolation precautions. According to the CDC, you can discontinue home isolation precautions when you have met both of these criteria: Your fever and respiratory symptoms have been gone for 24 hours without the use of any medicines like ibuprofen (Motrin) (more content not included)... [facility] CORONAVIRUS 2019 BY PCRon DATE OF SYMPTOM ONSET [YYYYMMDD]? [id number] [facility] Comment on above: Performed By: #### C OV19 #### [facility] [address] [place] [address] Lab Specimen Source Nasal, Nasopharyngeal Normal [facility] Comment on above: Performed By: #### C OV19 #### [facility] [address] [address] Provider Note - ED v2on Provider Note - ED v2 Provider Note - ED v2: Chart Review HISTORY OF PRESENTING ILLNESS PHU is a 65 year old Male and was seen by me at 11-Sep-2020 13:58 for a chief complaint of (Sinus congestion). Other complaints include: Patient presents for evaluation of sinus pressure. Patient reports 1 week of progressively worsening maxillary sinus pain, nasal congestion, and headache. There is reported mild postnasal drip. No fever, cough, or other constitutional signs and symptoms. Symptoms have been refractory to sxrr-mmj-tkqibud medications.. Triage Information: Most recent Vital Sign Value Date PAST MEDICAL HISTORY ATTESTATION: I have reviewed and confirmed nurse's/medic's notes for patient's medications, allergies, and medical, surgical, family and social history ALLERGIES/INTOLERANCES : Allergy Allergen: Biaxin Type: Drug Reaction: Unknown HEALTH HISTORY: No documented data. OUTPATIENT MEDICATIONS: Home Medications Review Status for Reconciliation: Complete Med Status: Patient Currently Takes Medications Drug Name: carvedilol Instructions: 37.5 milligram(s) orally once a day Drug Name: amLODIPine 10 mg oral tablet Instructions: 1 tab(s) orally once a day Drug Name: doxazosin 4 mg oral tablet Instructions: 1 tab(s) orally once a day Drug Name: potassium chloride Instructions: 70 milliequivalent(s) orally once a day Drug Name: Paxil 20 mg oral tablet Instructions: 1 tab(s) orally once a day, As Needed Drug Name: losartan 100 mg oral tablet Instructions: 1 tab(s) orally once a day Drug Name: hydroCHLOROthiazide 25 mg oral tablet Instructions: 1 tab(s) orally once a day Drug Name: hydrALAZINE Instructions: 150 milligram(s) orally once a day Drug Name: montelukast 10 mg oral tablet Instructions: 1 tab(s) orally once a day Drug Name: testosterone cypionate Instructions: 300 unit(s) intramuscular once a month SIGNIFICANT EVENTS: Other Description:NON SMOKER Additional Notes:06/2020 Past Medical History Description:CARDIOMYOP ATHY Additional Notes:06/2020 Description:LOW POTASSIUM Additional Notes:06/2020 Description:SLEEP APNEIA Additional Notes:06/2020 Description:LOWER EXTREMITY EDEMIA Additional Notes:06/2020 Past Surgical History Description:NO SURGICAL HISTORY THIS YEAR Additional Notes:06/2020 REVIEW OF SYSTEMS REVIEW OF SYSTEMS: Comments Review of Systems Constitutional: See HPI ENT: See HPI Respiratory: See HPI Neurologic: Alert and oriented X4, No numbness, No tingling. All other systems are negative PHYSICAL EXAM CONSTITUTIONAL: Well appearing, well nourished, awake, alert, oriented to person, place, time/situation and in no apparent distress. EYES: Clear bilaterally, pupils equal, round and reactive to light. CARDIOVASCULAR: Normal rate, regular rhythm. RESPIRATORY: Breath sounds clear and equal bilaterally. MUSCULOSKELETAL: Spine appears normal, range of motion is not limited, no muscle or joint tenderness. NEUROLOGICAL: Alert and oriented, no focal deficits, no motor or sensory deficits. SKIN: Skin normal color for race, warm, dry and intact. No evidence of trauma. MEDICAL DECISION MAKING/ED COURSE MDM/ED COURSE: Exam consistent with sinusitis. Prescription for amoxicillin. Covid swab obtained. Patient instructed to isolate until results become available. Patient's clinical presentation is otherwise unremarkable at this time. Patient is discharged with instructions to follow-up with primary care or seek emergency medical attention for worsening symptoms or any new concerns. CLINICAL IMPRESSION Diagnosis/Annotation: ED Dx Name:Acute sinusitis Code:J01.90 Disposition: discharged Type: home ATTESTATION CRITICAL CARE TIME Is this a critically ill patient: no Electronic Signatures for Addendum Section: Emile Michelle (PAC) (Signed Addendum 12-Sep-2020 09:08) covid (-). called pt with results. Electronic Signatures: Emile Michelle (PAC) (Signed 12-Sep-2020 09:08) Authored: HPI, PMH, ROS, PE, MDM/ED Course, Clinical Impression, Attestation, Chart Review, Scores Last Updated: 12-Sep-2020 09:08 by Emile Michelle (PAC) [facility] Provider Note - ED v2on 06-10 Provider Note - ED v2 Provider Note - ED v2: Chart Review: HISTORY OF PRESENTING ILLNESS PHU is a 65 year old Male and was seen by me at 07-Jul-2020 14:04 for a chief complaint of urinary tract infection. The historian is the patient. Additional Details: Patient presents with one-week history of urinary symptoms. Patient states he's had UTIs in the past symptoms are consistent. He endorses burning with urination, increased frequency, increased urgency, nausea, cloudy urine. He denies flulike symptoms such as fever, chills, vomiting, diarrhea, body aches, fatigue, painful defecation, new back pain. He hasn't taken anything for his symptoms. Triage Information: Most recent Vital Sign Value Date PAST MEDICAL HISTORY ATTESTATION: I have reviewed and confirmed nurse's/medic's notes for patient's medications, allergies, medical history, and surgical history ALLERGIES/INTOLERANCES : Allergy Allergen: Biaxin Type: Drug Reaction: Unknown HEALTH HISTORY: No documented data. OUTPATIENT MEDICATIONS: Home Medications Review Status for Reconciliation: Complete Med Status: Patient Currently Takes Medications Drug Name: carvedilol Instructions: 37.5 milligram(s) orally once a day Drug Name: amLODIPine 10 mg oral tablet Instructions: 1 tab(s) orally once a day Drug Name: doxazosin 4 mg oral tablet Instructions: 1 tab(s) orally once a day Drug Name: potassium chloride Instructions: 70 milliequivalent(s) orally once a day Drug Name: Paxil 20 mg oral tablet Instructions: 1 tab(s) orally once a day, As Needed Drug Name: losartan 100 mg oral tablet Instructions: 1 tab(s) orally once a day Drug Name: hydroCHLOROthiazide 25 mg oral tablet Instructions: 1 tab(s) orally once a day Drug Name: hydrALAZINE Instructions: 150 milligram(s) orally once a day Drug Name: montelukast 10 mg oral tablet Instructions: 1 tab(s) orally once a day Drug Name: testosterone cypionate 200 mg/mL intramuscular solution Instructions: intramuscular once a month Drug Name: ciprofloxacin 500 mg oral tablet Instructions: 1 tab(s) orally every 12 hours SIGNIFICANT EVENTS: Other Description:NON SMOKER Additional Notes:06/2020 Past Medical History Description:CARDIOMYOP ATHY Additional Notes:06/2020 Description:LOW POTASSIUM Additional Notes:06/2020 Description:SLEEP APNEIA Additional Notes:06/2020 Description:LOWER EXTREMITY EDEMIA Additional Notes:06/2020 Past Surgical History Description:NO SURGICAL HISTORY THIS YEAR Additional Notes:06/2020 REVIEW OF SYSTEMS CONSTITUTIONAL: Negative for: chills, diaphoresis, fever and malaise CARDIOVASCULAR: Negative for: chest pain RESPIRATORY: Negative for: dyspnea GASTROINTESTINAL: POSITIVE for: nausea; Negative for: diarrhea and vomiting; GENITOURINARY: POSITIVE for: cloudy urine, dysuria, frequency, strong smelling urine and urgency; Negative for: hematuria; penile discharge MUSCULOSKELETAL: Negative for: back pain All other systems reviewed and are negative RESULTS/VITAL SIGNS VITAL SIGNS: T PRBP SpO2O2(LPM) %FiO2 Method 07-Jul-2020 13:05:[id number]/ 69 97 PHYSICAL EXAM CONSTITUTIONAL: Appearance: well appearing Development: well developed Distress: no apparent Manner: appropriate for situation Mentation: awake and alert Mood: appropriate Nourishment: well HENMT: Head Examination: atraumatic Face: no signs of abnormality EYES: Bilteral Eyes: clear and PERRL Left Conjunctiva: clear Right Conjunctiva: clear CARDIOVASCULAR: Cardiac Rhythm: regular Cardiac Rate: normal RESPIRATORY: Respiratory Distress: no respiratory distress Breath Sounds: normal breath sounds Rales: no rales Wheezes: no wheezes Rhonchi: no rhonchi GENITOURINARY: CVA Tenderness: non-tender Prostate: (pt declined prostate exam) NEUROLOGICAL: Level of Consciousness: alert and follows commands Memory: memory/cognition intact Speech: clear Gait and Weight Bearing: normal SKIN: Skin normal color for race, warm, dry and intact. No evidence of trauma. PSYCHIATRIC: Alert and oriented to person, place, time/situation. normal mood and affect. No apparent risk to self or others. MEDICAL DECISION MAKING/ED COURSE MDM/ED COURSE: Differential Diagnosis: prostatitis, pyelonephritis and urinary tract infection Discussed Findings with: patient Data Reviewed: vital signs Awaiting: lab results Treatment Plan: Prescription given for cipro, advised pt we will treat for prostatitis based on symptoms as UA appears to be negative. Urine sent for culture. Advised patient to follow-up if he experiences increase in symptoms, fever, chills, CVA tenderness, nausea, fever, increased back pain, or painful defecation. Advised pt to f/u with his PCP. Patient verbalized understanding. The pt's clinical presentation is otherwise unremarkable at this time. Based on exam a (more content not included)... Normal [facility] URINE CULTURE,BACTERIALon URINE CULTURE,BACTERIAL PATIENT: JONO LOPEZ LOCATION: [facility]#: [id number] : 57 AGE: SEX: M ORDERED BY: CHRISS MARIE SOURCE: URINE COLLECTED: 07/07/20 14:07 ANTIBIOTICS AT CHAIM.: RECEIVED : 07/07/20 19:19 SITE: R E S U L T S URINE CULTURE,BACTERIAL FINAL 07/08/20 12:57 NO SIGNIFICANT GROWTH. [facility] Comment on above: Performed By: #### U RIN #### [facility] [address] [place] [address] OCT MACULA CIRRUS OU (BOTH E YES) [facility] Vital Signs Date Time Vital Sign Value Performing Clinician Facility 09-30-2023 08:46-0500 Body height 177.8 cm Delores Ac MD Work Phone: [facility] 09-30-2023 08:46-0500 Body mass index (BMI) [Ratio] 42.04 kg/m2 Delores Ac MD Work Phone: [facility] 09-30-2023 08:46-0500 Body weight 132.9 kg Delores Ac MD Work Phone: [facility] 09-30-2023 08:46-0500 Diastolic blood pressure 60 mm[Hg] Delores Ac MD Work Phone: [facility] 09-30-2023 08:46-0500 Heart rate 76 /min Delores Ac MD Work Phone: [facility] 09-30-2023 08:46-0500 Systolic blood pressure 138 mm[Hg] Delores Ac MD Work Phone: [facility] 06-15-2023 13:25-0500 Diastolic blood pressure 90 mm[Hg] Luiz MORRISON [facility] 06-15-2023 13:25-0500 Mean blood pressure 110 mm[Hg] Luiz MORRISON [facility] 06-15-2023 13:25-0500 Systolic blood pressure 150 mm[Hg] Luiz MORRISON [facility] 06-15-2023 13:20-0500 Blood Pressure Location Luiz MORRISON [facility] 06-15-2023 13:20-0500 Diastolic blood pressure 94 mm[Hg] Luiz MORRISON [facility] 06-15-2023 13:20-0500 Heart rate 83 /min Luiz MORRISON [facility] 06-15-2023 13:20-0500 Systolic blood pressure 150 mm[Hg] Luiz MORRISON [facility] 02-21-2023 13:30-0400 Body height 172.72 cm Burak Rangel Other [facility] Other 02-21-2023 13:30-0400 Body mass index (BMI) [Ratio] 44.55 kg/m2 Burak Rangel Other [facility] Other 02-21-2023 13:30-0400 Body weight 132.9 kg Burak Rangel Other [facility] Other 02-21-2023 13:30-0400 Diastolic blood pressure 71 mm[Hg] Burak Rangel Other [facility] Other 02-21-2023 13:30-0400 SaO2% (BldA) [Mass fraction] 96 % Burak Rangel Other [facility] [place] Other 02-21-2023 13:30-0400 Systolic blood pressure 167 mm[Hg] Burak Rangel Other [facility] [place] Other 11-03-2022 15:48-0400 Blood Pressure Location Luiz MORRISON [facility] 11-03-2022 15:48-0400 Diastolic blood pressure 76 mm[Hg] Luiz MORRISON [facility] 11-03-2022 15:48-0400 Heart rate 76 /min Luiz MORRISON [facility] 11-03-2022 15:48-0400 Systolic blood pressure 138 mm[Hg] Luiz MORRISON [facility] 09-28-2022 12:04-0500 Diastolic blood pressure 60 mm[Hg] Terri Allsop Work Phone: [facility] 600 DO Work Phone: 09-28-2022 12:04-0500 Systolic blood pressure 118 mm[Hg] Terri Allsop Work Phone: [facility] 600 DO Work Phone: 09-28-2022 11:58-0500 Diastolic blood pressure 42 mm[Hg] Terri Allsop Work Phone: [facility] 600 DO Work Phone: 09-28-2022 11:58-0500 Systolic blood pressure 118 mm[Hg] Terri Allsop Work Phone: [facility] 600 DO Work Phone: 09-28-2022 11:57-0500 Body height 177.8 cm Terri Allsop Work Phone: [facility] 600 DO Work Phone: 09-28-2022 11:57-0500 Body mass index (BMI) [Ratio] 40.89 kg/m2 Terri Allsop Work Phone: [facility] 600 DO Work Phone: 09-28-2022 11:57-0500 Body surface area Derived from formula 2.43 m2 Terri Allsop Work Phone: [facility] 600 DO Work Phone: 09-28-2022 11:57-0500 Body weight 129.28 kg Terri Allsop Work Phone: [facility] [employer] 600 DO Work Phone: 09-28-2022 11:57-0500 Diastolic blood pressure 44 mm[Hg] Terri Allsop Work Phone: [facility] 600 DO Work Phone: 09-28-2022 11:57-0500 Heart rate 80 /min Terri Allsop Work Phone: [facility] 600 DO Work Phone: 09-28-2022 11:57-0500 Systolic blood pressure 120 mm[Hg] Terri Allsop Work Phone: [facility] 600 DO Work Phone: 09-10-2022 10:02-0500 Body height 177.8 cm Terri Allsop Work Phone: [facility] 600 DO Work Phone: 09-10-2022 10:02-0500 Body mass index (BMI) [Ratio] 41.32 kg/m2 Terri Powellsop Work Phone: [facility] 600 DO Work Phone: 09-10-2022 10:02-0500 Body surface area Derived from formula 2.44 m2 Terri Powellsop Work Phone: [facility] 600 DO Work Phone: 09-10-2022 10:02-0500 Body weight 130.64 kg Terri Powellsop Work Phone: [facility] 600 DO Work Phone: 09-10-2022 10:02-0500 Diastolic blood pressure 70 mm[Hg] Terri Powellsop Work Phone: [facility] 600 DO Work Phone: 09-10-2022 10:02-0500 Heart rate 88 /min Terri Rmp Work Phone: [facility] 600 DO Work Phone: 09-10-2022 10:02-0500 Systolic blood pressure 162 mm[Hg] Terri Santos Work Phone: [facility] 600 DO Work Phone: 06-24-2022 13:10-0500 Blood Pressure Location William [facility]rejasmeet [facility] 06-24-2022 13:10-0500 Diastolic blood pressure 87 mm[Hg] William Brush [facility] 06-24-2022 13:10-0500 Heart rate 91 /min William [facility] 06-24-2022 13:10-0500 Respiratory rate 21 /min William [facility] 06-24-2022 13:10-0500 SaO2% (BldA) [Mass fraction] 97 % William Mourany [facility] 06-24-2022 13:10-0500 Systolic blood pressure 152 mm[Hg] William Mourany [facility] 06-24-2022 13:05-0500 Blood Pressure Location William Mour[facility] 06-24-2022 13:05-0500 Diastolic blood pressure 94 mm[Hg] William Mour[facility] 06-24-2022 13:05-0500 Heart rate 91 /min William Mour[facility] 06-24-2022 13:05-0500 Respiratory rate 24 /min William Mourany [facility] 06-24-2022 13:05-0500 SaO2% (BldA) [Mass fraction] 97 % William Mourany [facility] 06-24-2022 13:05-0500 Systolic blood pressure 164 mm[Hg] William Mour[facility] 06-24-2022 13:00-0500 Heart rate 92 /min William Mour[facility] 06-24-2022 13:00-0500 Respiratory rate 18 /min William Mour[facility] 06-24-2022 13:00-0500 SaO2% (BldA) [Mass fraction] 96 % William Mour[facility] 06-24-2022 13:00-0500 Systolic blood pressure 162 mm[Hg] William Mour[facility] 06-24-2022 12:40-0500 Body temperature 97.16 [degF] [facility] 06-24-2022 12:37-0500 Respiratory rate 20 /min [facility] 06-24-2022 12:30-0500 Respiratory rate 20 /min [facility] 06-24-2022 12:25-0500 Respiratory rate 20 /min William Trudi [facility] 06-24-2022 11:31-0500 Body temperature 97.16 [degF] William [facility] 05-12-2022 08:06-0400 Blood Pressure Location Luizcaitie MORRISON [facility] 05-12-2022 08:06-0400 Diastolic blood pressure 80 mm[Hg] Luiz MORRISON [facility] 05-12-2022 08:06-0400 Heart rate 80 /min Luiz MORRISON [facility] 05-12-2022 08:06-0400 Respiratory rate 16 /min Luiz MORRISON [facility] 05-12-2022 08:06-0400 Systolic blood pressure 151 mm[Hg] Luiz MORRISON [facility] 04-28-2022 11:54-0400 Body temperature 99.2 [degF] MD Terri Santos Work Phone: [facility] 04-28-2022 11:54-0400 Diastolic blood pressure 91 mm[Hg] MD Terri Santos Work Phone: [facility] 04-28-2022 11:54-0400 Heart rate 92 /min MD Terri Santos Work Phone: [facility] 04-28-2022 11:54-0400 Respiratory rate 18 /min MD Terri Santos Work Phone: [facility] 04-28-2022 11:54-0400 SaO2% (BldA) [Mass fraction] 92 % MD Terri Santos Work Phone: [facility] 04-28-2022 11:54-0400 Systolic blood pressure 173 mm[Hg] MD Terri Santos Work Phone: [facility] 04-28-2022 05:14-0400 Body weight 126.5 kg MD Terri Santos Work Phone: [facility] 04-27-2022 10:48-0400 Inhaled oxygen flow rate 6 L/min MD Terri Santos Work Phone: [facility] 04-27-2022 09:08-0400 Body height 180.34 cm MD Terri Santos Work Phone: [facility] 04-27-2022 09:08-0400 Body mass index (BMI) [Ratio] 37.6 kg/m2 MD Terri Santos Work Phone: [facility] 04-01-2022 10:10-0400 Blood Pressure Location Leonid WHITEHEAD [facility] [place] 04-01-2022 10:10-0400 Diastolic blood pressure 69 mm[Hg] Leonid WHITEHEAD [facility] [place] 04-01-2022 10:10-0400 Heart rate 79 /min Leonid WHITEHEAD [facility] [place] 04-01-2022 10:10-0400 Respiratory rate 16 /min Leonid WHITEHEAD [facility] [place] 04-01-2022 10:10-0400 Systolic blood pressure 167 mm[Hg] Leonid WHITEHEAD [facility] [place] 02-22-2022 14:45-0400 Body height 172.72 cm Compajuan Claire Other [facility] Other 02-22-2022 14:45-0400 Body mass index (BMI) [Ratio] 45.08 kg/m2 Burak Claire Other [facility] Other 02-22-2022 14:45-0400 Body temperature 97.5 [degF] Burak Rangel Other [facility] Other 02-22-2022 14:45-0400 Body weight 134.49 kg Compajuan Rangel Other [facility] Other 02-22-2022 14:45-0400 Diastolic blood pressure 75 mm[Hg] Burak Rangel Other [facility] Other 02-22-2022 14:45-0400 SaO2% (BldA) [Mass fraction] 96 % Burak Rangel Other [facility] Other 02-22-2022 14:45-0400 Systolic blood pressure 148 mm[Hg] Burak Gayban Other [facility] Other 12-22-2021 08:15-0400 Blood Pressure Location Luiz MORRISON [facility] [place] 12-22-2021 08:15-0400 Diastolic blood pressure 71 mm[Hg] Luiz MORRISON [facility] [place] 12-22-2021 08:15-0400 Heart rate 74 /min Luzi MORRISON [facility] [place] 12-22-2021 08:15-0400 Systolic blood pressure 139 mm[Hg] Luiz MORRISON [facility] 12-11-2021 08:18-0400 Blood Pressure Location William Brush [facility] [place] 12-11-2021 08:18-0400 Diastolic blood pressure 77 mm[Hg] William Brush [facility] [place] 12-11-2021 08:18-0400 Heart rate 77 /min William Brush [facility] [place] 12-11-2021 08:18-0400 Systolic blood pressure 155 mm[Hg] William Brush [facility] [place] 11-04-2021 10:36-0400 Blood Pressure Location Luiz MORRISON [facility] [place] 11-04-2021 10:36-0400 Diastolic blood pressure 78 mm[Hg] Luiz MORRISON [facility] [place] 11-04-2021 10:36-0400 Heart rate 85 /min Luiz MORRISON [facility] [place] 11-04-2021 10:36-0400 Respiratory rate 16 /min Luiz MORRISON [facility] [place] 11-04-2021 10:36-0400 Systolic blood pressure 144 mm[Hg] Luiz MORRISON [facility] [place] 08-31-2021 15:23-0500 Diastolic blood pressure 60 mm[Hg] Terri Rmp Work Phone: [facility] [place] 600 DO Work Phone: 08-31-2021 15:23-0500 Systolic blood pressure 130 mm[Hg] Terri Powellsop Work Phone: [facility] [place] 600 DO Work Phone: 08-31-2021 15:08-0500 Body height 177.8 cm Terri Powellsop Work Phone: [facility] [place] 600 DO Work Phone: 08-31-2021 15:08-0500 Body mass index (BMI) [Ratio] 40.89 kg/m2 Terri Powellsop Work Phone: [facility] [place] 600 DO Work Phone: 08-31-2021 15:08-0500 Body surface area Derived from formula 2.43 m2 Terri Powellsop Work Phone: [facility] 600 DO Work Phone: 08-31-2021 15:08-0500 Body weight 129.28 kg Terri Powellsop Work Phone: [facility] [place] 600 DO Work Phone: 08-31-2021 15:08-0500 Diastolic blood pressure 79 mm[Hg] Terri Allsop Work Phone: [facility] 600 DO Work Phone: 08-31-2021 15:08-0500 Heart rate 75 /min Terri Allsop Work Phone: [facility] 600 DO Work Phone: 08-31-2021 15:08-0500 Systolic blood pressure 144 mm[Hg] Terri Allsop Work Phone: [facility] 600 DO Work Phone: 03-10-2021 15:09-0400 Body height 177.8 cm Terri Allsop Other Phone: [facility] 03-10-2021 15:09-0400 Body temperature 98.42 [degF] Terri Allsop Other Phone: [facility] 03-10-2021 15:09-0400 Diastolic blood pressure 70 mm[Hg] Terri Allsop Other Phone: [facility] 03-10-2021 15:09-0400 Heart rate 82 /min Terri Allsop Other Phone: [facility] 03-10-2021 15:09-0400 SaO2% (BldA) [Mass fraction] 95 % Terri Allsop Other Phone: [facility] 03-10-2021 15:09-0400 Systolic blood pressure 132 mm[Hg] Terri Allsop Other Phone: [facility] Encounters Encounter Date Encounter Type Care Provider Facility Start: 04-13-2024 End: 04-13-2024 ambulatory GUNNAR ADLER Not Available Start: 03-26-2024 End: 03-26-2024 ambulatory ADAM D DOLCE Not Available Start: 01-09-2024 End: 01-09-2024 ambulatory ADAM D DOLCE Not Available Start: 12-01-2023 End: 12-01-2023 ambulatory TERRI D ALLSOP Not Available Start: 11-25-2023 End: 11-26-2023 ambulatory Terri D Allsop Facility:[facility] Start: 11-25-2023 End: 11-25-2023 Patient encounter procedure Terri D Allsop [facility] Start: 11-17-2023 End: 11-17-2023 ambulatory TERRI D ALLSOP Not Available Start: 10-31-2023 End: 10-31-2023 ambulatory ADAM D DOLCE Not Available Start: 10-21-2023 End: 10-22-2023 ambulatory Terri D Allsop Facility:[facility] Start: 10-21-2023 End: 10-21-2023 Patient encounter procedure Terri D Allsop [facility] Start: 09-30-2023 End: 09-30-2023 Office outpatient visit 25 minutes Delores Ac MD Work Phone: [facility] Comment on above: Essential hypertensi on; Non-ischemic cardiomyopathy (CMS/HCC); Hyperlipidemia, unspecified hyperlipidemia type; Obstructive sleep apnea, adult; Morbid obesity with BMI of 40.0-44.9, adult (CMS/HCC) Start: 09-30-2023 End: 09-30-2023 ambulatory DELORES Noguera [facility] Start: 08-25-2023 End: 08-25-2023 ambulatory TERRI D ALLSOP Not Available Start: 08-22-2023 End: 08-22-2023 ambulatory ADAM D DOLCE Not Available Start: 06-15-2023 End: 06-16-2023 ambulatory Luiz MORRISON Facility:[facility] Start: 06-15-2023 End: 06-15-2023 Patient encounter procedure Luiz MORRISON [facility] [place] Start: 05-27-2023 End: 05-27-2023 ambulatory TERRI SANTOS Facility:[facility] Start: 04-30-2023 End: 05-01-2023 ambulatory Luiz MORRISON Facility:[facility] Start: 04-30-2023 End: 04-30-2023 Patient encounter procedure Luiz MORRISON [facility] Start: 02-21-2023 Office outpatient vi sit 15 minutes [facility] Start: 02-21-2023 End: 02-21-2023 ambulatory [facility] Work Phone: Start: 02-21-2023 End: 02-21-2023 Patient encounter procedure MD Terri Santos Work Phone: [facility] Work Phone: Start: 12-24-2022 End: 12-25-2022 ambulatory Terri Santos Facility:[facility] Start: 11-04-2022 Rx Renewal Terri greene Work Phone: [facility] 250 DO Work Phone: Start: 11-03-2022 End: 11-03-2022 Patient encounter procedure Luiz MORRISON [facility] [place] Start: 09-29-2022 Chart Update Terri Rm p Work Phone: [facility] 600 DO Work Phone: Start: 09-29-2022 End: 09-29-2022 Patient encounter procedure Delores Ac [facility] Start: 09-28-[address] Delores Ac Facility: Start: 09-28-2022 Office outpatient vi sit 10 minutes Terri Allsop Work Phone: [facility] Work Phone: Start: 09-10-2022 Office outpatient vi sit 25 minutes [facility] Work Phone: Start: 09-10-2022 Patient encounter procedure Terri Allsop Work Phone: [facility] DO Work Phone: Start: 09-10-[address] Terri Santos Facility: Start: 07-02-2022 Rx Renewal Terri Allso p [facility]: [facility] Work Phone: Start: 06-24-2022 End: 06-24-2022 Patient encounter procedure William Brush [facility] Start: 05-21-2022 End: 05-21-2022 Patient encounter procedure Catrachito Barton OD Work Phone: Ophthalmology Comment on above: Epiretinal membrane (ERM) of both eyes (Primary Dx); Floppy eyelid syndrome of both eyes; Combined forms of age-related cataract of both eyes; Posterior vitreous detachment of both eyes; Vitreous floaters of both eyes Start: 05-12-2022 End: 05-12-2022 Patient encounter procedure Luiz MORRISON [facility] Jenkins Start: 05-10-2022 Rx Renewal Terri Allso p [facility]: [facility] Work Phone: Start: 04-30-2022 End: 04-30-2022 Patient encounter procedure Luiz MORRISON [facility] Annika Start: 04-27-2022 End: 04-28-2022 ambulatory Luiz Morrison Facility:[facility] Start: 04-27-2022 End: 04-28-2022 Admission to same day surgery center MD Terri Santos Work Phone: [facility] [place] Start: 04-23-2022 End: 04-23-2022 ambulatory Luizcaitie Morrison Facility:[facility] Start: 04-23-2022 End: 04-23-2022 Patient encounter procedure MD Terri Santos Work Phone: [facility] Start: 04-13-2022 End: 04-13-2022 ambulatory Luiz Tamiko Facility:[facility] Start: 04-13-2022 End: 04-13-2022 Patient encounter procedure MD Terri Santos Work Phone: [facility] Start: 04-01-2022 End: 04-01-2022 Lab Drop off Adam Soriano [facility] Start: 04-01-2022 End: 04-01-2022 Patient encounter procedure Leonid WHITEHEAD [facility] [place] Start: 03-26-2022 End: 04-07-2022 Pre-admission assessment Milo Gonzales [facility] Start: 03-17-2022 End: 03-17-2022 Patient encounter procedure Luiz MORRISON [facility] [place] Start: 03-02-2022 End: 03-02-2022 Patient encounter procedure Luiz MORRISON [facility] Start: 02-22-2022 End: 02-22-2022 ambulatory Burak Rangel Other [facility] [place] Other Start: 02-22-2022 Office outpatient vi sit 15 minutes Burak Rangel [facility] Start: 02-22-2022 End: 02-22-2022 Patient encounter procedure MD Terri Santos Work Phone: [facility] Start: 01-21-2022 End: 01-21-2022 Patient encounter procedure MD Terri Santos Work Phone: [facility] [place] Start: 12-22-2021 End: 12-22-2021 Lab Drop off Luiz MORRISON [facility] Start: 12-22-2021 End: 12-22-2021 Patient encounter procedure Luiz MORRISON [facility] [place] Start: 12-11-2021 End: 02-20-2022 Pre-admission assessment William Brush [facility] Start: 12-11-2021 End: 12-11-2021 Patient encounter procedure William Brush [facility] [place] Start: 12-10-2021 End: 12-10-2021 Patient encounter procedure Belinda GIL [facility] Start: 12-08-2021 End: 12-08-2021 Patient encounter procedure Luiz MORRISON [facility] Start: 12-01-2021 End: 12-01-2021 Patient encounter procedure Luiz MORRISON [facility] Start: 11-19-2021 End: 11-19-2021 Patient encounter procedure Luiz MORRISON [facility] Start: 11-04-2021 End: 11-04-2021 Patient encounter procedure Luiz MORRISON [facility] [place] Start: 08-31-2021 Office outpatient vi sit 25 minutes Terri Santos Work Phone: [facility] 600 DO Work Phone: Start: 06-10-2021 Rx Renewal Terri greene Work Phone: [facility] DO Work Phone: Start: 03-10-2021 End: 03-10-2021 Emergency department patient visit Chriss Marie [facility] Start: 04-11-2018 End: 04-11-2018 Emergency department patient visit [facility] Facility:[facility] Procedures Date Procedure Procedure Detail Performing Clinician Start: 06-24-2022 Colonoscopy Delores whitney MD Work Phone: Start: 06-24-2022 Colonoscopy William alvarez Start: 05-21-2022 Computerized ophthal indy imaging retina Catrachito Barton OD Work Phone: Start: 04-27-2022 Transurethral prostatectomy MD Terri Santos Work Phone: Start: 04-27-2022 Transurethral prostatectomy Luiz MORRISON Start: 01-21-2022 MR prostate wo/w con MD Terri Santos Work Phone: Start: 01-21-2022 MRI-US fusion guided prostate biopsy Luiz MORRISON Start: 12-08-2021 Urodynamic studies Ericka MORRISON Start: 10-08-2011 Colonoscopy Catrachito Buio felipecarlosaung OD Work Phone: Start: 10-08-2011 Colonoscopy Luiz CARREON TERJassi Start: 08-10-2011 Colonoscopy Luiz CARREON TERJassi Hemorrhoid operation Luiz MORRISON Hemorrhoidectomy Terri Ferreira lsop Work Phone: Tonsillectomy Luiz MORRISON Total colonoscopy Terri Toney llsoramona Work Phone: Plan of Treatment Date Care Activity Detail Author Start: 09-03-2033 DTaP/Tdap/Td Vaccines (2 - Td or Tdap) DTaP/Tdap/Td Vaccines (2 - Td or Tdap) [facility] Start: 06-24-2032 Screening for malignant neoplasm of colon [facility] Start: 09-25-2024 End: 09-25-2024 Patient encounter procedure 09/25/2024 9:00 AM EST Office Visit [facility] [address] [place] [address] Delores Ac MD [address] [facility] [address] [place] [address] [facility] Start: 06-20-2024 ambulatory Ambulatory Facility:[facility] Start: 10-29-2023 Zoster Vaccines (2 of 2) Zoster Vaccines (2 of 2) [facility] Start: 09-30-2023 FUV, Provider: Delores Ac, Status: Perfecto, Time: 9:00 AM FUV, Provider: Delores Ac, Status: Pen, Time: 9:00 AM [facility] 600 DO Work Phone: Start: 04-08-2023 COVID-19 Vaccine ( season) COVID-19 Vaccine ( season) [facility] Start: 09-28-2022 NURSEVST, Provider: ISHA TRINIDAD ANIMAL CARE GIVER 1,[id number], Status: Pen, Time: 11:30 AM NURSEVST, Provider: ISHA TRINIDAD ANIMAL CARE GIVER 1,[id number], Status: Pen, Time: 11:30 AM [facility] 600 DO Work Phone: Start: 08-31-2022 FUV, Provider: Delores Ac, Status: Pen, Time: 8:40 AM FUV, Provider: Delores Ac, Status: Pen, Time: 8:40 AM [facility] Work Phone: Start: 08-03-2022 Pneumococcal Vaccine: 65+ Years (2 - PCV) Pneumococcal Vaccine: 65+ Years (2 - PCV) [facility] Start: 04-28-2022 [facility] Work Phone: Start: 04-27-2022 Hospital admission [facility] Work Phone: Start: 04-08-2022 Influenza vaccination INFLUENZA (#1) [facility] Start: 01-21-2022 MR prostate wo/w con MR prostate wo/w con [facility] Start: 10-05-2021 COVID-19 VACCINE (4 - Booster for Moderna series) COVID-19 VACCINE (4 - Booster for Moderna series) [facility] Start: 08-08-2021 ADVANCE DIRECTIVE DISCUSSION ADVANCE DIRECTIVE DISCUSSION [facility] Start: 08-08-2021 DEPRESSION ASSESSMENT DEPRESSION ASSESSMENT [facility] Start: 07-10-2021 FUVRESULTS, Provider: Delores Ac, Status: Pen, Time: 10:10 AM [id number], Provider: Delores Ac, Status: Pen, Time: 10:10 AM [facility] 600 DO Work Phone: Start: 01-01-2021 PNEUMOCOCCAL: 65+ (1 - PCV) PNEUMOCOCCAL: 65+ (1 - PCV) [facility] Start: 10-07-2012 Colonoscopy COLONOSCOPY [facility] Start: 10-07-2012 COLORECTAL CANCER SCREENING COLORECTAL CANCER SCREENING [facility] Start: 01-01-2011 PROSTATE CANCER SCREENING DISCUSSION PROSTATE CANCER SCREENING DISCUSSION [facility] Start: 01-01-2006 SHINGRIX VACCINE (1 of 2) SHINGRIX VACCINE (1 of 2) [facility] Start: 01-01-2001 COLOGUARD (FIT-DNA) COLOGUARD (FIT-DNA) [facility] Start: 01-01-[address] COLONOGRAPHY [facility] Start: 01-01-2001 DIABETES SCREEN DIABETES SCREEN [facility] Start: 01-01-2001 FECAL OCCULT BLOOD FECAL OCCULT BLOOD [facility] Start: 01-01-2001 SIGMOIDOSCOPY SIGMOIDOSCOPY [facility] Start: 01-01-1991 LIPID SCREEN LIPID SCREEN [facility] Start: 01-01-1975 Urine microalbumin profile DTAP,TDAP,TD (1 - Tdap) [facility] Start: 01-01-1974 Diabetes mellitus screening Diabetes Screening [facility] Start: 01-01-1974 HEPATITIS C SCREENING HEPATITIS C SCREENING [facility] Start: 01-01-1974 Hepatitis C screening Hepatitis C Screening [facility] Start: 1956 Lipid panel Lipid Panel [facility] Start: 1955 Screening for malignant neoplasm of colon [facility] Start: 1955 Yearly Adult Physical Yearly Adult Physical [facility] Patient referral [facility] Work Phone: [facility] c Immunizations Immunization Date Immunization Notes Care Provider Fa pari 05-19-2023 influenza virus vacc ine, unspecified formulation Luiz MORRISON [facility] 05-27-2022 Fluzone High-Dose Quadrivalent 0.7 ML Intramuscular Suspension Prefilled Syringe Terri Santos Work Phone: [facility] 600 DO Work Phone: 05-27-2022 influenza virus vacc ine, unspecified formulation Luiz MORRISON [facility] 08-10-2021 Moderna COVID-19 Vac cine 100 MCG/0.5ML Intramuscular Suspension Terri Powellsop Work Phone: [facility] 08-08-2021 SARS-CoV-2 (COVID-19 ) mRNA-1273 vaccine Luiz MORRISON [facility] Comment on above: Result Comment: [facility] 08-03-2021 Fluzone High-Dose Quadrivalent 0.7 ML Intramuscular Suspension Prefilled Syringe Terri Powellsop Work Phone: [facility] 600 DO Work Phone: 08-03-2021 influenza virus vacc ine, unspecified formulation Luiz MORRISON [facility] 08-03-2021 pneumococcal polysaccharide vaccine, 23 valent Terri Allsop Work Phone: [facility] DO Work Phone: 2021 Moderna COVID-19 Vac cine 100 MCG/0.5ML Intramuscular Suspension Terri Allsop Work Phone: [facility] 600 DO Work Phone: 12-05-2020 Moderna COVID-19 Vac cine 100 MCG/0.5ML Intramuscular Suspension Terri Allsop Work Phone: [facility] DO Work Phone: 06-26-2020 influenza virus vacc ine, unspecified formulation Luiz MORRISON [facility] 06-26-2020 influenza, injectabl e, quadrivalent, preservative free Terri Allsop Work Phone: [facility] 600 DO Work Phone: 06-16-2019 influenza virus vacc ine, unspecified formulation Luiz Fwd: Power [facility] 06-16-2019 seasonal influenza, intradermal, preservative free Terri Allsop Work Phone: [facility] 600 DO Work Phone: 06-08-2019 influenza virus vacc ine, unspecified formulation Luiz Fwd: Power [facility] 06-08-2019 influenza, seasonal, injectable Terri Allsop Work Phone: [place] [address] DO Work Phone: 06-07-2019 influenza virus vacc ine, unspecified formulation Luiz Fwd: Power [facility] 05-08-2018 influenza virus vacc ine, unspecified formulation Terri Allsop Work Phone: [facility] 600 DO Work Phone: 06-08-2016 influenza virus vacc ine, unspecified formulation Terri Allsop Work Phone: [facility] 600 DO Work Phone: 06-08-2016 pneumococcal polysaccharide vaccine, 23 valent Terri Allsop Work Phone: [facility] 600 DO Work Phone: 05-16-2015 influenza virus vacc ine, unspecified formulation Terri Allsop Work Phone: [facility] 600 DO Work Phone: 06-22-2013 influenza virus vacc ine, unspecified formulation Terri Allsop Work Phone: [facility] 600 DO Work Phone: 06-21-2013 pneumococcal polysaccharide vaccine, 23 valent Terri Allsop Work Phone: [facility] 600 DO Work Phone: 05-01-2012 influenza virus vacc ine, whole virus Terri Allsop Work Phone: [facility] 600 DO Work Phone: 05-01-2012 influenza, whole Luiz ANDREW ERS [facility] influenza virus vacc ine, unspecified formulation Terri Allsop Work Phone: [facility] 600 DO Work Phone: Comment on above: 2011 2006 Payers Date Payer Category Payer Self-pay [id number] 2018 Unknown 2014 Unknown [id number] 1956 Unknown [id number] 2.16. [id number] 1956 Unknown [id number] 2.16. [id number] 1956 Unknown [id number] 2.16.8 [id number] 1956 Unknown [id number] 2.16.8 40.1.196340.3.579.2.727 1956 Unknown [id number] 2.16.8 40.1.135383.3.579.2.727 1956 Unknown [id number] 2.16.8 40.1.079208.3.579.2.727 1956 Unknown [id number] 2.16.8 40.1.691292.3.579.2.727 1956 Unknown [id number] 2.16.8 40.1.852688.3.579.2.727 1956 Unknown [id number] 2.16.84 0.1.291438.3.579.2.1258 1956 Unknown [id number] 2.16.84 0.1.483766.3.579.2.1258 1956 Unknown [id number] 2.16.84 0.1.678384.3.579.2.1258 1956 Unknown [id number] 2.16.84 0.1.702230.3.579.2.1258 1956 Unknown [id number] 2.16.84 0.1.335072.3.579.2.1258 1956 Unknown [id number] 2.16.84 0.1.934598.3.579.2.1258 1956 Unknown [id number] 2.16.84 0.1.458389.3.579.2.1258 1956 Unknown [id number] 2.16.84 0.1.295618.3.579.2.1258 1956 Unknown [id number] 2.16.8 40.1.029861.3.579.2.1244 Unknown [id number] 2.16.8 40.1.323273.3.579.2.531 Unknown [id number] 2.16.8 40.1.578874.3.579.2.531 Unknown [id number] 2.16.8 40.1.768194.3.579.2.531 Unknown [id number] 2.16.8 40.1.763113.3.579.2.531 Social History Date Type Detail Facility [facility] Tobacco smoking consumption unknown [facility] Start: 09-30-2023 Caffeine use Caffeine use [facility] 600 DO Work Phone: Start: 11-04-2021 End: 06-15-2023 Tobacco smoking status Never smoked tobacco (finding) [facility] Tobacco smoking status Ex-smoker (finding ) [facility] Tobacco smoking status Never [facility] Start: 09-30-2023 Sex Assigned At Male [facility] Start: 1955 Sex Assigned At Male F [facility] Start: 04-12-2018 End: 09-30-2023 Tobacco use and exposure Smokeless tobacco non-user [facility] Start: 05-21-2022 End: 09-30-2023 Alcohol intake Lifetime non-drinker (finding) [facility] Start: 08-27-2019 History SDOH Alcohol Frequency 1 [facility] Start: 1955 Sex Assigned At Not on file [facility] Start: 05-11-2022 End: 09-30-2023 Exposure to SARS-CoV-2 (event) Not sure [facility] Goals Date Patient Goal Desired Activity /State Functional Status Date Assessment Result Facility 06-15-2023 Functional Status N/A [facility] 11-03-2022 Functional Status N/A [facility] 06-24-2022 Functional Status N/A [facility] 05-12-2022 Functional Status N/A [facility] 04-28-2022 Functional status Patient at Baseline [facility] Work Phone: 04-01-2022 Functional Status N/A [facility] [place] 03-17-2022 Functional Status N/A [facility] Annika Mental Status Date Assessment Result Facility 04-28-2022 Cognitive function Cognitive Sta tus Patient at Baseline [facility] Work Phone: Clinical Notes 08-15-2020 to 09-30-2023 Delores Ac MD - 09/30/2023 9:00 AM ESTPatient Instructions Note Date & Type Note Facility 09-30-2023 History of Present illness Narrative Subjective Phu Lopez is a 68 y.o. male Chief Complaint Follow-up HPI Patient is in the office for follow-up for the problems noted below. In the last year there has been no cardiovascular events. His weight increased 8 pounds and mostly related to his lack of discipline for calorie consumption. He is compliant to CPAP machine. Recent A1c was 5.3. He is nondiabetic. His pressure is under control and has no side effect of medications. He maintains active lifestyle though. He is scheduled for blood work next month. ASSESSMENT AND PLAN: 1. Previous nonischemic cardiomyopathy completely recovered by controlling hypertension. 2. Drug-induced gynecomastia, resolved after stopping spironolactone 3. Hypertension, currently under control. Present medical therapy is effective and well-tolerated. 4. Hyperlipidemia, on medical therapy. Have been controlled, lipid profile is due and is scheduled by PCP next month 5. morbid Obesity. The patient was reminded on the need to cut back on calorie consumption 6. Obstructive sleep apnea on CPAP machine, patient has been very compliant Delores Ac MD, [facility] Review of Systems All other systems reviewed and are negative. Vitals: 09/30/23 0846 BP: 138/60 BP Location: Left arm Patient Position: Sitting Pulse: 76 Weight: 133 kg (293 lb) Height: 1.778 m (5' 10 ) Objective Physical Exam Constitutional: Appearance: Normal appearance. He is normal weight. HENT: Nose: Nose normal. Neck: Vascular: No carotid bruit. Cardiovascular: Rate and Rhythm: Normal rate. Pulses: Normal pulses. Heart sounds: Normal heart sounds. Pulmonary: Effort: Pulmonary effort is normal. Abdominal: General: Bowel sounds are normal. Palpations: Abdomen is soft. Genitourinary: Rectum: Normal. Musculoskeletal: General: Normal range of motion. Cervical back: Normal range of motion. Right lower leg: No edema. Left lower leg: No edema. Skin: General: Skin is warm and dry. Neurological: General: No focal deficit present. Mental Status: He is alert. Psychiatric: Mood and Affect: Mood normal. Behavior: Behavior normal. Thought Content: Thought content normal. Judgment: Judgment normal. Allergies Shellfish containing products and Shellfish derived Current Medications Current Outpatient Medications: amLODIPine (Norvasc) 10 mg tablet, Take 1 tablet (10 mg) by mouth once daily., Disp: , Rfl: aspirin 325 mg tablet, Take 1 tablet (325 mg) by mouth once daily., Disp: , Rfl: doxazosin (Cardura) 4 mg tablet, Take 1 tablet (4 mg) by mouth once daily., Disp: , Rfl: hydrALAZINE (Apresoline) 50 mg tablet, Take 1 tablet (50 mg) by mouth 3 times a day., Disp: 270 tablet, Rfl: 3 hydroCHLOROthiazide (HYDRODiuril) 25 mg tablet, Take 1 tablet (25 mg) by mouth once daily., Disp: , Rfl: losartan (Cozaar) 100 mg tablet, Take 1 tablet (100 mg) by mouth once daily., Disp: , Rfl: lovastatin (Mevacor) 20 mg tablet, Take 2 tablets (40 mg) by mouth every other day., Disp: , Rfl: montelukast (Singulair) 10 mg tablet, Take 1 tablet (10 mg) by mouth once daily., Disp: , Rfl: PARoxetine (Paxil) 20 mg tablet, Take 1 tablet (20 mg) by mouth once daily., Disp: , Rfl: potassium chloride CR 20 mEq ER tablet, Take by mouth once daily., Disp: , Rfl: carvedilol (Coreg) 25 mg tablet, Take 1 tablet (25 mg) by mouth 2 times a day with meals., Disp: 180 tablet, Rfl: 3 Assessment/Plan 1. Essential hypertension carvedilol (Coreg) 25 mg tablet Follow Up In Cardiology 2. Non-ischemic cardiomyopathy (CMS/HCC) carvedilol (Coreg) 25 mg tablet Follow Up In Cardiology 3. Hyperlipidemia, unspecified hyperlipidemia type 4. Obstructive sleep apnea, adult 5. Morbid obesity with BMI of 40.0-44.9, adult (CMS/HCC) Scribe Attestation By signing my name below, I, [email or web address] , Scribe attest that this documentation has been prepared under the direction and in the presence of Delores Ac MD. Provider Attestation - Scribe documentation All medical record entries made by the Scribe were at my direction and personally dictated by me. I have reviewed the chart and agree that the record accurately reflects my personal performance of the history, physical exam, discussion and plan. documented in this encounter [facility] Work Phone: 09-30-2023 Instructions Kitty Estes LPN - 09/30/2023 9:00 AM EST Please bring all medicines, vitamins, and herbal supplements with you when you come to the office. Prescriptions will not be filled unless you are compliant with your follow up appointments or have a follow up appointment scheduled as per instruction of your physician. Refills should be requested at the time of your visit. Lab as scheduled Follow up one year BMI was above normal measurement. Current weight: 133 kg (293 lb) Weight change since last visit (-) denotes wt loss 8 lbs Weight loss needed to achieve BMI 25: 119.1 Lbs Weight loss needed to achieve BMI 30: 84.4 Lbs Provided instructions on dietary changes Provided instructions on exercise Advised to Increase physical activity. documented in this encounter [facility] Work Phone: 06-15-2023 Hospital Discharge instructions Patient Education 06/15/2023 14:21:51 Benign Prostatic Hyperplasia Benign Prostatic Hyperplasia Benign prostatic hyperplasia (BPH) is an enlarged prostate gland that is caused by the normal aging process. The prostate may get bigger as a man gets older. The condition is not caused by cancer. The prostate is a walnut-sized gland that is involved in the production of semen. It is located in front of the rectum and below the bladder. The bladder stores urine. The urethra carries stored urine out of the body. An enlarged prostate can press on the urethra. This can make it harder to pass urine. The buildup of urine in the bladder can cause infection. Back pressure and infection may progress to bladder damage and kidney (renal) failure. What are the causes? This condition is part of the normal aging process. However, not all men develop problems from this condition. If the prostate enlarges away from the urethra, urine flow will not be blocked. If it enlarges toward the urethra and compresses it, there will be problems passing urine. What increases the risk? This condition is more likely to develop in men older than 50 years. What are the signs or symptoms? Symptoms of this condition include: Getting up often during the night to urinate. Needing to urinate frequently during the day. Difficulty starting urine flow. Decrease in size and strength of your urine stream. Leaking (dribbling) after urinating. Inability to pass urine. This needs immediate treatment. Inability to completely empty your bladder. Pain when you pass urine. This is more common if there is also an infection. Urinary tract infection (UTI). How is this diagnosed? This condition is diagnosed based on your medical history, a physical exam, and your symptoms. Tests will also be done, such as: A post-void bladder scan. This measures any amount of urine that may remain in your bladder after you finish urinating. A digital rectal exam. In a rectal exam, your health care provider checks your prostate by putting a lubricated, gloved finger into your rectum to feel the back of your prostate gland. This exam detects the size of your gland and any abnormal lumps or growths. An exam of your urine (urinalysis). A prostate specific antigen (PSA) screening. This is a blood test used to screen for prostate cancer. An ultrasound. This test uses sound waves to electronically produce a picture of your prostate gland. Your health care provider may refer you to a specialist in kidney and prostate diseases (urologist). How is this treated? Once symptoms begin, your health care provider will monitor your condition (active surveillance or watchful waiting). Treatment for this condition will depend on the severity of your condition. Treatment may include: Observation and yearly exams. This may be the only treatment needed if your condition and symptoms are mild. Medicines to relieve your symptoms, including: ?Medicines to shrink the prostate. ?Medicines to relax the muscle of the prostate. Surgery in severe cases. Surgery may include: ?Prostatectomy. In this procedure, the prostate tissue is removed completely through an open incision or with a laparoscope or robotics. ?Transurethral resection of the prostate (TURP). In this procedure, a tool is inserted through the opening at the tip of the penis (urethra). It is used to cut away tissue of the inner core of the prostate. The pieces are removed through the same opening of the penis. This removes the blockage. ?Transurethral incision (TUIP). In this procedure, small cuts are made in the prostate. This lessens the prostate's pressure on the urethra. ?Transurethral microwave thermotherapy (TUMT). This procedure uses microwaves to create heat. The heat destroys and removes a small amount of prostate tissue. ?Transurethral needle ablation (TUNA). This procedure uses radio frequencies to destroy and remove a small amount of prostate tissue. ?Interstitial laser coagulation (ILC). This procedure uses a laser to destroy and remove a small amount of prostate tissue. ?Transurethral electrovaporization (TUVP). This procedure uses electrodes to destroy and remove a small amount of prostate tissue. ?Prostatic urethral lift. This procedure inserts an implant to push the lobes of the prostate away from the urethra. Follow these instructions at home: Take xunh-uak-hekdggy and prescription medicines only as told by your health care provider. Monitor your symptoms for any changes. Contact your health care provider with any changes. Avoid drinking large amounts of liquid before going to bed or out in public. Avoid or reduce how much caffeine or alcohol you drink. Give yourself time when you urinate. Keep all follow-up visits. This is important. Contact a health care provider if: You have unexplained back pain. Your symptoms do not get better with treatment. You develop side effects from the medicine you are taking. Your urine becomes very dark or has a bad smell. Your lower abdomen becomes distended and you have trouble passing urine. Get help right away if: You have a fever or chills. You suddenly cannot urinate. You feel light-headed or very dizzy, or you faint. There are large amounts of blood or clots in your urine. Your urinary problems become hard to manage. You develop moderate to severe low back or flank pain. The flank is the side of your body between the ribs and the hip. These symptoms may be an emergency. Get help right away. Call 911. Do not wait to see if the symptoms will go away. Do not drive yourself to the hospital. Summary Benign prostatic hyperplasia (BPH) is an enlarged prostate that is caused by the normal aging process. It is not caused by cancer. An enlarged prostate can press on the urethra. This can make it hard to pass urine. This condition is more likely to develop in men older than 50 years. Get help right away if you suddenly cannot urinate. This information is not intended to replace advice given to you by your health care provider. Make sure you discuss any questions you have with your health care provider. Document Revised: 02/10/2022 Document Reviewed: 02/10/2022 [employer] Patient Education 2022 [employer]. Follow Up Care 11/03/2022 16:39:32 With:TAMIKO SAEZ, Luiz Jackson, URL Address: [facility] [address], [place] [address]- When: Unknown [facility] 05-27-2023 Note HNO ID: [id number] Author: Josselin Decker MD Service: ? Author Type: Physician Type: Progress Notes Filed: 05/27/2023 3:23 PM Note Text: ASSESSMENT/PLAN: 1. Epiretinal membrane (ERM) of both eyes - ICD9: 362.56, ICD10: H35.373 (primary diagnosis) - OCT MACULA CIRRUS OU (BOTH EYES) - FUNDUS PHOTOS OU (BOTH EYES) Right Eye > Left Eye Monitor for progression Both Eyes. 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 Combined form of age-related cataract, both eyes - ICD9: 366.19, ICD10: H25.[address] Zhu for refraction and glasses. 4. Benign prostatic hyperplasia without lower urinary tract symptoms - ICD9: 600.00, ICD10: N40.0 Continue to monitor with primary care physician. 5. Anxiety disorder, unspecified type - ICD9: 300.00, ICD10: F41.9 Continue to monitor with primary care physician. 6. Essential hypertension - ICD9: 401.9, ICD10: I10 Continue to monitor with primary care physician. 7. Mixed hyperlipidemia - ICD9: 272.2, ICD10: E78.2 Continue to monitor with primary care physician. 8. Obstructive sleep apnea syndrome - ICD9: 327.23, ICD10: G47.33 Continue to monitor with primary care physician. Josselin Decker MD I have confirmed and edited as necessary the relevant ophthalmic history, review of systems, surgical history, and ophthalmological examination findings as obtained by the ophthalmic technical staff. I have seen and examined Phu Lopez. I have discussed the examination findings, diagnosis, and treatment options with Phu Lopez and/or his family. I have also reviewed and agree with the assessment and plan as stated above and agree with all its relevant components. I gave the patient the opportunity to ask questions about the findings, diagnosis, and treatment options. [facility] 02-21-2023 Evaluation note Encounter Date Diagnosis Assessment Notes Feb, Obstructive sleep apnea (ICD-10 - G47.33) Patient was encouraged to continue his CPAP regularly, work on losing weight, monitor his blood pressure regularly and keep a record of his readings to review with his evs manager, asked him to report any difficulties or issues with his treatment, DOS otherwise we will see him for follow-up in 1 year Feb, Hypertension, unspecified type (ICD-10 - I10) [facility] Other 03-29-2023 Hospital Discharge instructions Patient Education 11/03/2022 16:21:05 Benign Prostatic Hyperplasia Benign Prostatic Hyperplasia Benign prostatic hyperplasia (BPH) is an enlarged prostate gland that is caused by the normal agingprocess and not by cancer. The prostate is a walnut-sized gland that is involved in the production of semen. It is located in front of the rectum and below the bladder. The bladder stores urine and the urethra is the tube that carries the urine out of the body. The prostate may get bigger as a man gets older. An enlarged prostate can press on the urethra. This can make it harder to pass urine. The build-up of urine in the bladder can cause infection. Back pressure and infection may progress to bladder damage and kidney (renal) failure. What are the causes? This condition is part of a normal aging process. However, not all men develop problems from this condition. If the prostate enlarges away from the urethra, urine flow will not be blocked. If it enlarges toward the urethra and compresses it, there will be problems passing urine. What increases the risk? This condition is more likely to develop in men over the age of 50 years. What are the signs or symptoms? Symptoms of this condition include: Getting up often during the night to urinate. Needing to urinate frequently during the day. Difficulty starting urine flow. Decrease in size and strength of your urine stream. Leaking (dribbling) after urinating. Inability to pass urine. This needs immediate treatment. Inability to completely empty your bladder. Pain when you pass urine. This is more common if there is also an infection. Urinary tract infection (UTI). How is this diagnosed? This condition is diagnosed based on your medical history, a physical exam, and your symptoms. Tests will also be done, such as: A post-void bladder scan. This measures any amount of urine that may remain in your bladder after you finish urinating. A digital rectal exam. In a rectal exam, your health care provider checks your prostate by putting a lubricated, gloved finger into your rectum to feel the back of your prostate gland. This exam detects the size of your gland and any abnormal lumps or growths. An exam of your urine (urinalysis). A prostate specific antigen (PSA) screening. This is a blood test used to screen for prostate cancer. An ultrasound. This test uses sound waves to electronically produce a picture of your prostate gland. Your health care provider may refer you to a specialist in kidney and prostate diseases (urologist). How is this treated? Once symptoms begin, your health care provider will monitor your condition (active surveillance or watchful waiting). Treatment for this condition will depend on the severity of your condition. Treatment may include: Observation and yearly exams. This may be the only treatment needed if your condition and symptoms are mild. Medicines to relieve your symptoms, including: ?Medicines to shrink the prostate. ?Medicines to relax the muscle of the prostate. Surgery in severe cases. Surgery may include: ?Prostatectomy. In this procedure, the prostate tissue is removed completely through an open incision or with a laparoscope or robotics. ?Transurethral resection of the prostate (TURP). In this procedure, a tool is inserted through the opening at the tip of the penis (urethra). It is used to cut away tissue of the inner core of the prostate. The pieces are removed through the same opening of the penis. This removes the blockage. ?Transurethral incision (TUIP). In this procedure, small cuts are made in the prostate. This lessens the prostate's pressure on the urethra. ?Transurethral microwave thermotherapy (TUMT). This procedure uses microwaves to create heat. The heat destroys and removes a small amount of prostate tissue. ?Transurethral needle ablation (TUNA). This procedure uses radio frequencies to destroy and remove a small amount of prostate tissue. ?Interstitial laser coagulation (ILC). This procedure uses a laser to destroy and remove a small amount of prostate tissue. ?Transurethral electrovaporization (TUVP). This procedure uses electrodes to destroy and remove a small amount of prostate tissue. ?Prostatic urethral lift. This procedure inserts an implant to push the lobes of the prostate away from the urethra. Follow these instructions at home: Take onsq-iax-icdmyry and prescription medicines only as told by your health care provider. Monitor your symptoms for any changes. Contact your health care provider with any changes. Avoid drinking large amounts of liquid before going to bed or out in public. Avoid or reduce how much caffeine or alcohol you drink. Give yourself time when you urinate. Keep all follow-up visits as told by your health care provider. This is important. Contact a health care provider if: You have unexplained back pain. Your symptoms do not get better with treatment. You develop side effects from the medicine you are taking. Your urine becomes very dark or has a bad smell. Your lower abdomen becomes distended and you have trouble passing your urine. Get help right away if: You have a fever or chills. You suddenly cannot urinate. You feel lightheaded, or very dizzy, or you faint. There are large amounts of blood or clots in the urine. Your urinary problems become hard to manage. You develop moderate to severe low back or flank pain. The flank is the side of your body between the ribs and the hip. These symptoms may represent a serious problem that is an emergency. Do not wait to see if the symptoms will go away. Get medical help right away. Call your local emergency services (911 in the [place] Do not drive yourself to the hospital. Summary Benign prostatic hyperplasia (BPH) is an enlarged prostate that is caused by the normal aging process and not by cancer. An enlarged prostate can press on the urethra. This can make it hard to pass urine. This condition is part of a normal aging process and is more likely to develop in men over the age of 50 years. Get help right away if you suddenly cannot urinate. This information is not intended to replace advice given to you by your health care provider. Make sure you discuss any questions you have with your health care provider. Document Released: 07/25/2006 Document Revised: 06/19/2019 Document Reviewed: 08/29/2017 [employer] Patient Education 2020 [employer]. Follow Up Care 07/29/2022 09:30:30 With:TAMIKO SAEZ, Luiz Jackson, URL Address: [facility] [address], [place] [address]- When: Unknown [facility] 11-17-2022 Hospital Discharge instructions Patient Education 06/24/2022 10:26:04 Colonoscopy, Adult, Care After Colonoscopy, Adult, Care After This sheet gives you information about how to care for yourself after your procedure. Your health care provider may also give you more specific instructions. If you have problems or questions, contact your health care provider. What can I expect after the procedure? After the procedure, it is common to have: A small amount of blood in your stool for 24 hours after the procedure. Some gas. Mild abdominal cramping or bloating. Follow these instructions at home: General instructions For the first 24 hours after the procedure: ?Do not drive or use machinery. ?Do not sign important documents. ?Do not drink alcohol. ?Do your regular daily activities at a slower pace than normal. ?Eat soft, monq-jl-yljwpn foods. Take nmmj-fcx-qbuhkgm or prescription medicines only as told by your health care provider. Relieving cramping and bloating Try walking around when you have cramps or feel bloated. Apply heat to your abdomen as told by your health care provider. Use a heat source that your healthcare provider recommends, such as a moist heat pack or a heating pad. ?Place a towel between your skin and the heat source. ?Leave the heat on for 20 30 minutes. ?Remove the heat if your skin turns bright red. This is especially important if you are unable to feel pain, heat, or cold. You may have a greater risk of getting burned. Eating and drinking Drink enough fluid to keep your urine pale yellow. Resume your normal diet as instructed by your health care provider. Avoid heavy or fried foods thatare hard to digest. Avoid drinking alcohol for as long as instructed by your health care provider. Contact a health care provider if: You have blood in your stool 2 3 days after the procedure. Get help right away if: You have more than a small spotting of blood in your stool. You pass large blood clots in your stool. Your abdomen is swollen. You have nausea or vomiting. You have a fever. You have increasing abdominal pain that is not relieved with medicine. Summary After the procedure, it is common to have a small amount of blood in your stool. You may also have mild abdominal cramping and bloating. For the first 24 hours after the procedure, do not drive or use machinery, sign important documents, or drink alcohol. Contact your health care provider if you have a lot of blood in your stool, nausea or vomiting, a fever, or increased abdominal pain. This information is not intended to replace advice given to you by your health care provider. Make sure you discuss any questions you have with your health care provider. Document Released: 03/08/2005 Document Revised: 05/17/2018 Document Reviewed: 10/05/2016 [employer] Patient Education 2020 [employer]. Follow Up Care 02/15/2022 10:08:03 With:William Brush Address:Unknown When: Unknown Comments:will call with results [facility]10-14-2022 Instructions* Patient Instructions* Catrachito Barton, OD - 05/21/2022 3:51 PM EDT ASSESSMENT/PLAN: 1. Epiretinal membrane (ERM) of both eyes - ICD9: 362.56, ICD10: H35.373 (primary diagnosis) Continue to monitor. 2. 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 Discussed a referral to oculo-plastics for an evaluation 3. Combined forms of age-related cataract of both eyes - ICD9: 366.19, ICD10: H25.813 Mild to moderate cataract in both eyes. Well tolerated at this time. Discussed possible future affect on daily activities to watch for. Monitor as instructed. 4. Posterior vitreous detachment of both eyes - ICD9: 379.21, ICD10: H43.813 5. Vitreous floaters of both eyes - ICD9: 379.24, ICD10: H43.393 Vitreal floaters stable both eyes. Retinas flat and intact with no apparent retinal tear or traction. Discussed symptoms of retinal tear/detachment and if seen patient will return to clinic without delay. Recommended yearly exams. [facility] of Present illness Narrative* Catrachito Barton, OD - 05/21/2022 3:49 PM EDT ASSESSMENT/PLAN: 1. Epiretinal membrane (ERM) of both eyes - ICD9: 362.56, ICD10: H35.373 (primary diagnosis) Continue to monitor. 2. 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 Discussed a referral to oculo-plastics for an evaluation 3. Combined forms of age-related cataract of both eyes - ICD9: 366.19, ICD10: H25.813 Mild to moderate cataract in both eyes. Well tolerated at this time. Discussed possible future affect on daily activities to watch for. Monitor as instructed. 4. Posterior vitreous detachment of both eyes - ICD9: 379.21, ICD10: H43.813 5. Vitreous floaters of both eyes - ICD9: 379.24, ICD10: H43.393 Vitreal floaters stable both eyes. Retinas flat and intact with no apparent retinal tear or traction. Discussed symptoms of retinal tear/detachment and if seen patient will return to clinic without delay. Recommended yearly exams. Catrachito Barton, OD I have confirmed and edited as necessary the relevant ophthalmic history, ROS, and the neuro exam findings as obtained by others. I have seen and examined this patient. [facility] Hospital Discharge instructions Patient Education 05/12/2022 08:12:30 Transurethral Resection of the Prostate, Care After Transurethral Resection of the Prostate, Care After This sheet gives you information about how to care for yourself after your procedure. Your health care provider may also give you more specific instructions. If you have problems or questions, contact your health care provider. What can I expect after the procedure? After the procedure, it is common to have: Mild pain in your lower abdomen. Soreness or mild discomfort in your penis from having the catheter inserted during the procedure. A feeling of urgency when you need to urinate. A small amount of blood in your urine. You may notice some small blood clots in your urine. These are normal. Follow these instructions at home: Medicines Take csug-sii-yoosdij and prescription medicines only as told by your health care provider. If you were prescribed an antibiotic medicine, take it as told by your health care provider. Do notstop taking the antibiotic even if you start to feel better. Ask your health care provider if the medicine prescribed to you: ?Requires you to avoid driving or using heavy machinery. ?Can cause constipation. You may need to take actions to prevent or treat constipation, such as: ?Take aiux-rab-wzxfzyb or prescription medicines. ?Eat foods that are high in fiber, such as fresh fruits and vegetables, whole grains, and beans. ?Limit foods that are high in fat and processed sugars, such as fried or sweet foods. Do not drive for 24 hours if you were given a sedative during your procedure. Activity Return to your normal activities as told by your health care provider. Ask your health care provider what activities are safe for you. Do not lift anything that is heavier than 10 lb (4.5 kg), or the limit that you are told, for 3 weeks after the procedure or until your health care provider says that it is safe. Avoid intense physical activity for as long as told by your health care provider. Avoid sitting for a long time without moving. Get up and move around one or more times every few hours. This helps to prevent blood clots. You may increase your physical activity gradually as you start to feel better. Lifestyle Do not drink alcohol for as long as told by your health care provider. This is especially importantif you are taking prescription pain medicines. Do not engage in sexual activity until your health care provider says that you can do this. General instructions Do not take baths, swim, or use a hot tub until your health care provider approves. Drink enough fluid to keep your urine pale yellow. Urinate as soon as you feel the need to. Do not try to hold your urine for long periods of time. If your health care provider approves, you may take a stool softener for 2 3 weeks to prevent you from straining to have a bowel movement. Wear compression stockings as told by your health care provider. These stockings help to prevent blood clots and reduce swelling in your legs. Keep all follow-up visits as told by your health care provider. This is important. Contact a health care provider if you have: Difficulty urinating. A fever. Pain that gets worse or does not improve with medicine. Blood in your urine that does not go away after 1 week of resting and drinking more fluids. Swelling in your penis or testicles. Get help right away if: You are unable to urinate. You are having more blood clots in your urine instead of fewer. You have: ?Large blood clots. ?A lot of blood in your urine. ?Pain in your back or lower abdomen. ?Pain or swelling in your legs. ?Chills and you are shaking. ?Difficulty breathing or shortness of breath. Summary After the procedure, it is common to have a small amount of blood in your urine. Avoid heavy lifting and intense physical activity for as long as told by your health care provider. Urinate as soon as you feel the need to. Do not try to hold your urine for long periods of time. Keep all follow-up visits as told by your health care provider. This is important. This information is not intended to replace advice given to you by your health care provider. Make sure you discuss any questions you have with your health care provider. Document Released: 07/25/2006 Document Revised: 11/14/2019 Document Reviewed: 04/25/2019 [employer] Patient Education 2020 [employer]. Follow Up Care 04/30/2022 08:49:28 With:TAMIKO SAEZ, Luiz Jackson, ELVIRA Address: [facility] [address] , [place] [address]- [phone] When:08/12/2022 [facility] 08-10-2022 Hospital Discharge instructions Patient Education 03/17/2022 14:41:46 Transurethral Resection of the Prostate Transurethral Resection of the Prostate Transurethral resection of the prostate (TURP) is the removal (resection) of part of the gland thatproduces semen (prostate gland). This procedure is done to treat benign prostatic hyperplasia (BPH). BPH is an abnormal, noncancerous (benign) increase in the number of cells that make up the prostate tissue. BPH causes the prostate to get bigger. The enlarged prostate can push against or block thetube that drains urine from the bladder out of the body (urethra). BPH can affect normal urine flowby causing bladder infections, difficulty controlling bladder function, and difficulty emptying thebladder. The goal of TURP is to remove enough prostate tissue to allow for a normal flow of urine. The procedure will allow you to empty your bladder more completely when you urinate so that you can urinate less often. In a transurethral resection, a thin telescope with a light, a tiny camera, and an electric cuttingedge (resectoscope) is passed through the urethra and into the prostate. The opening of the urethrais at the end of the penis. Tell a health care provider about: Any allergies you have. All medicines you are taking, including vitamins, herbs, eye drops, creams, and nmnn-kha-kxsoubt medicines. Any problems you or family members have had with anesthetic medicines. Any blood disorders you have. Any surgeries you have had. Any medical conditions you have. Any prostate infections you have had. What are the risks? Generally, this is a safe procedure. However, problems may occur, including: Infection. Bleeding. Allergic reactions to medicines. Damage to other structures or organs, such as: ?The urethra. ?The bladder. ?Muscles that surround the prostate. Difficulty getting an erection. Inability to control when you urinate (incontinence). Scarring, which may cause problems with urine flow. What happens before the procedure? Medicines Ask your health care provider about: Changing or stopping your regular medicines. This is especially important if you are taking diabetes medicines or blood thinners. Taking medicines such as aspirin and ibuprofen. These medicines can thin your blood. Do not take these medicines unless your health care provider tells you to take them. Taking rfkp-oso-cvlbwbl medicines, vitamins, herbs, and supplements. Eating and drinking Follow instructions from your health care provider about eating and drinking, which may include: 8 hours before the procedure stop eating heavy meals or foods, such as meat, fried foods, or fatty foods. 6 hours before the procedure stop eating light meals or foods, such as toast or cereal. 6 hours before the procedure stop drinking milk or drinks that contain milk. 2 hours before the procedure stop drinking clear liquids. Staying hydrated Follow instructions from your health care provider about hydration, which may include: Up to 2 hours before the procedure you may continue to drink clear liquids, such as water, clear fruit juice, black coffee, and plain tea. General instructions You may have a physical exam. You may have a blood or urine sample taken. Ask your health care provider what steps will be taken to help prevent infection. These may include: ?Washing skin with a germ-killing soap. ?Taking antibiotic medicine. Plan to have someone take you home from the hospital or clinic. You may not be able to drive for upto 10 days after your procedure. Plan to have a responsible adult care for you for at least 24 hours after you leave the hospital orclinic. This is important. What happens during the procedure? An IV will be inserted into one of your veins. You will be given one or more of the following: ?A medicine to help you relax (sedative). ?A medicine to make you fall asleep (general anesthetic). ?A medicine that is injected into your spine to numb the area below and slightly above the injection site (spinal anesthetic). Your legs will be placed in foot rests (stirrups) so that your legs are apart and your knees are bent. The resectoscope will be passed through your urethra to your prostate. Parts of your prostate will be resected using the cutting edge of the resectoscope. The resectoscope will be removed. A small, thin tube (catheter) will be passed through your urethra and into your bladder. The catheter will drain urine into a bag outside of your body. ?Fluid may be passed through the catheter to keep the catheter open. The procedure may vary among health care providers and hospitals. What happens after the procedure? Your blood pressure, heart rate, breathing rate, and blood oxygen level will be monitored until youleave the hospital or clinic. You may continue to receive fluids and medicines through an IV. You may have some pain. Pain medicine will be available to help you. You will have a catheter draining your urine. ?You may have blood in your urine. Your catheter may be kept in until your urine is clear. ?Your urinary drainage will be monitored. If necessary, your bladder may be rinsed out (irrigated) through your catheter. You will be encouraged to walk around as soon as possible. You may have to wear compression stockings. These stockings help prevent blood clots and reduce swelling in your legs. Do not drive for 24 hours if you were given a sedative during your procedure. Summary Transurethral resection of the prostate (TURP) is the removal (resection) of part of the gland thatproduces semen (prostate gland). The goal of this procedure is to remove enough prostate tissue to allow for a normal flow of urine. Follow instructions from your health care provider about taking medicines and about eating and drinking before the procedure. This information is not intended to replace advice given to you by your health care provider. Make sure you discuss any questions you have with your health care provider. Document Released: 07/25/2006 Document Revised: 11/14/2019 Document Reviewed: 04/25/2019 [employer] Patient Education 2019 [employer]. Follow Up Care 02/12/2022 10:45:59 With:TAMIKO SAEZ, Luiz Jackson, URL Address: [facility] [address] , [place] [address]- [phone] When: Unknown Comments:schedule TURP [facility] 07-26-2022 Hospital Discharge instructions Patient Education 03/02/2022 11:02:09 EU - Transrectal Ultrasound of the Prostate with US guided biopsy Discharge Instructions (CUSTOM) Transrectal Ultrasound of the Prostate with US guided biopsy Even though there are no visible incisions, multiple prostate biopsies have been taken through the rectum and you need to follow some instructions to minimize the risks of bleeding. You may see some blood in your urine and stool for up to 1 week (and blood in the semen for severalmonths) Diet -You may resume your normal diet, but you may want to avoid alcohol, carbonated drinks, caffeine, and spicy foods, which may increase the irritation from the surgery. -Drink plenty of water to keep the urine clear. Activity -You should limit any physical activity for about 48 hours -No heavy lifting or straining (10 pound limit) -No driving a car and limit long car rides for 2 days -No strenuous exercise -No sexual intercourse until this is discussed with your doctor Bowels -Try to keep your bowel movements soft to minimize straining to have a bowel movement. -You may use a stool softener or over the counter laxative if needed -Difficult bowel movement may lead to straining and bleeding from the prostate Medications -You may resume your home medications unless instructed otherwise -Hold aspirin, ibuprofen, Coumadin (warfarin) and other blood thinners for about two days or until there is no active bleeding unless otherwise instructed -Finish the antibiotic which you have already started Things to watch for which would require an Emergency Room visit or call 911: (this is not a complete list) -Persistent or heavy bleeding or blood clots from the rectum or in the urine -Inability to urinate -Fever over 101.5 degrees Fahrenheit, with or without chills -Severe drug reactions with itching, hives or rash -Tenderness or swelling of the calves, chest pain, or shortness of breath Please call the office to arrange for your post-operative appointment in 1-2 weeks [phone] or [phone] Follow Up Care 02/12/2022 10:36:38 With:Luiz MORRISON Address: [facility] [address], [place] [address]- [facility] (1) When: Unknown Comments:Appointment has already been scheduled [facility]07-18-2022 Evaluation note* Encounter Date Diagnosis Assessment Notes Treatment Notes Treatment Clinical Notes Feb, Obstructive sleep apnea (ICD-10 - G47.33) Patient was advised to continue current treatment with CPAP on a regular basis, also to continue working aggressively on losing weight and improving his sleep hygiene, will send a new prescription for supplies to his [employer] I will see him for follow-up in 1 year Feb, Periodic limb movement disorder (ICD-10 - G47.61) Feb, Morbid obesity (ICD-10 - E66.01) [facility] Other 05-16-2022 Hospital Discharge instructions Patient Education 12/21/2021 14:10:44 Hematuria, Adult Hematuria, Adult Hematuria is blood in the urine. Blood may be visible in the urine, or it may be identified with a test. This condition can be caused by infections of the bladder, urethra, kidney, or prostate. Otherpossible causes include: Kidney stones. Cancer of the urinary tract. Too much calcium in the urine. Conditions that are passed from parent to child (inherited conditions). Exercise that requires a lot of energy. Infections can usually be treated with medicine, and a kidney stone usually will pass through your urine. If neither of these is the cause of your hematuria, more tests may be needed to identify the cause of your symptoms. It is very important to tell your health care provider about any blood in your urine, even if it ispainless or the blood stops without treatment. Blood in the urine, when it happens and then stops and then happens again, can be a symptom of a very serious condition, including cancer. There is no pain in the initial stages of many urinary cancers. Follow these instructions at home: Medicines Take diys-ubi-twufktx and prescription medicines only as told by your health care provider. If you were prescribed an antibiotic medicine, take it as told by your health care provider. Do notstop taking the antibiotic even if you start to feel better. Eating and drinking Drink enough fluid to keep your urine clear or pale yellow. It is recommended that you drink 3 4 quarts (2.8 3.8 L) a day. If you have been diagnosed with an infection, it is recommended that you drink cranberry juice in addition to large amounts of water. Avoid caffeine, tea, and carbonated beverages. These tend to irritate the bladder. Avoid alcohol because it may irritate the prostate (men). General instructions If you have been diagnosed with a kidney stone, follow your health care provider's instructions about straining your urine to catch the stone. Empty your bladder often. Avoid holding urine for long periods of time. If you are female: ?After a bowel movement, wipe from front to back and use each piece of toilet paper only once. ?Empty your bladder before and after sex. Pay attention to any changes in your symptoms. Tell your health care provider about any changes or any new symptoms. It is your responsibility to get your test results. Ask your health care provider, or the department performing the test, when your results will be ready. Keep all follow-up visits as told by your health care provider. This is important. Contact a health care provider if: You develop back pain. You have a fever. You have nausea or vomiting. Your symptoms do not improve after 3 days. Your symptoms get worse. Get help right away if: You develop severe vomiting and are unable take medicine without vomiting. You develop severe pain in your back or abdomen even though you are taking medicine. You pass a large amount of blood in your urine. You pass blood clots in your urine. You feel very weak or like you might faint. You faint. Summary Hematuria is blood in the urine. It has many possible causes. It is very important that you tell your health care provider about any blood in your urine, even ifit is painless or the blood stops without treatment. Take dfmu-yjz-kmnsiqu and prescription medicines only as told by your health care provider. Drink enough fluid to keep your urine clear or pale yellow. This information is not intended to replace advice given to you by your health care provider. Make sure you discuss any questions you have with your health care provider. Document Released: 07/25/2006 Document Revised: 12/19/2019 Document Reviewed: 08/27/2017 [employer] Patient Education 2019 [employer]. Follow Up Care 12/01/2021 08:55:58 With:TAMIKO SAEZ, Luiz Jackson, URL Address: [facility] [address] , [place] [address]- When: Unknown Comments:Schedule TURP. [facility] 05-06-2022 Hospital Discharge instructions Patient Education 12/11/2021 08:32:38 Obesity, Adult Obesity, Adult Obesity is the condition of having too much total body fat. Being overweight or obese means that your weight is greater than what is considered healthy for your body size. Obesity is determined by a measurement called BMI. BMI is an estimate of body fat and is calculated from height and weight. Foradults, a BMI of 30 or higher is considered obese. Obesity can lead to other health concerns and major illnesses, including: Stroke. Coronary artery disease (CAD). Type 2 diabetes. Some types of cancer, including cancers of the colon, breast, uterus, and gallbladder. Osteoarthritis. High blood pressure (hypertension). High cholesterol. Sleep apnea. Gallbladder stones. Infertility problems. What are the causes? Common causes of this condition include: Eating daily meals that are high in calories, sugar, and fat. Being born with genes that may make you more likely to become obese. Having a medical condition that causes obesity, including: ?Hypothyroidism. ?Polycystic ovarian syndrome (PCOS). ?Binge-eating disorder. ?[place] syndrome. Taking certain medicines, such as steroids, antidepressants, and seizure medicines. Not being physically active (sedentary lifestyle). Not getting enough sleep. Drinking high amounts of sugar-sweetened beverages, such as soft drinks. What increases the risk? The following factors may make you more likely to develop this condition: Having a family history of obesity. Being a woman of descent. Being a man of descent. Living in an area with limited access to: ?[place], recreation centers, or sidewalks. ?Healthy food choices, such as grocery stores and [employer]. What are the signs or symptoms? The main sign of this condition is having too much body fat. How is this diagnosed? This condition is diagnosed based on: Your BMI. If you are an adult with a BMI of 30 or higher, you are considered obese. Your waist circumference. This measures the distance around your waistline. Your skinfold thickness. Your health care provider may gently pinch a fold of your skin and measureit. You may have other tests to check for underlying conditions. How is this treated? Treatment for this condition often includes changing your lifestyle. Treatment may include some or all of the following: Dietary changes. This may include developing a healthy meal plan. Regular physical activity. This may include activity that causes your heart to beat faster (aerobicexercise) and strength training. Work with your health care provider to design an exercise program that works for you. Medicine to help you lose weight if you are unable to lose 1 pound a week after 6 weeks of healthy eating and more physical activity. Treating conditions that cause the obesity (underlying conditions). Surgery. Surgical options may include gastric banding and gastric bypass. Surgery may be done if: ?Other treatments have not helped to improve your condition. ?You have a BMI of 40 or higher. ?You have life-threatening health problems related to obesity. Follow these instructions at home: Eating and drinking Follow recommendations from your health care provider about what you eat and drink. Your health care provider may advise you to: ?Limit fast food, sweets, and processed snack foods. ?Choose low-fat options, such as low-fat milk instead of whole milk. ?Eat 5 or more servings of fruits or vegetables every day. ?Eat at home more often. This gives you more control over what you eat. ?Choose healthy foods when you eat out. ?Learn to read food labels. This will help you understand how much food is considered 1 serving. ?Learn what a healthy serving size is. ?Keep low-fat snacks available. ?Limit sugary drinks, such as soda, fruit juice, sweetened iced tea, and flavored milk. Drink enough water to keep your urine pale yellow. Do not follow a fad diet. Fad diets can be unhealthy and even dangerous. Physical activity Exercise regularly, as told by your health care provider. ?Most adults should get up to 150 minutes of moderate-intensity exercise every week. ?Ask your health care provider what types of exercise are safe for you and how often you should exercise. Warm up and stretch before being active. Cool down and stretch after being active. Rest between periods of activity. Lifestyle Work with your health care provider and a dietitian to set a weight-loss goal that is healthy and reasonable for you. Limit your screen time. Find ways to reward yourself that do not involve food. Do not drink alcohol if: ?Your health care provider tells you not to drink. ?You are , may be , or are planning to become . If you drink alcohol: ?Limit how much you use to: ?0 1 drink a day for women. ?0 2 drinks a day for men. ?Be aware of how much alcohol is in your drink. In the [place] one drink equals one 12 oz bottle of beer (355 mL), one 5 oz glass of wine (148 mL), or one 1 oz glass of hard liquor (44 mL). General instructions Keep a weight-loss journal to keep track of the food you eat and how much exercise you get. Take lllc-ixm-npslsqr and prescription medicines only as told by your health care provider. Take vitamins and supplements only as told by your health care provider. Consider joining a support group. Your health care provider may be able to recommend a support group. Keep all follow-up visits as told by your health care provider. This is important. Contact a health care provider if: You are unable to meet your weight loss goal after 6 weeks of dietary and lifestyle changes. Get help right away if you are having: Trouble breathing. Suicidal thoughts or behaviors. Summary Obesity is the condition of having too much total body fat. Being overweight or obese means that your weight is greater than what is considered healthy for your body size. Work with your health care provider and a dietitian to set a weight-loss goal that is healthy and reasonable for you. Exercise regularly, as told by your health care provider. Ask your health care provider what types of exercise are safe for you and how often you should exercise. This information is not intended to replace advice given to you by your health care provider. Make sure you discuss any questions you have with your health care provider. Document Released: 09/01/2005 Document Revised: 03/29/2019 Document Reviewed: 03/29/2019 [employer] Patient Education 2020 [employer]. [facility] [place] 04-26-2022 Evaluation + Plan noteExtracted from: Title:Urology Progress Note Author:Rakesh MORRISON MD Date:12/01/21 Patient: PHU LOPEZ Age: 66 years Sex: Male : 1955 Associated Diagnoses: None Author: Luiz MORRISON MD Subjective X this gentleman has BPH with LUTS despite using Cardura. He had recent bout of gross hematuria. His upper tract study was negative. Cystoscopy today showed a very friable and obstructive prostate and a trilobar fashion. He also had very high-grade bladder damage with open diverticuli. No evidence of any bladder tumors was noted. Tiny bright yellow stone debris was noted at the base of the bladder. Review of Systems Constitutional: Negative. Eye: Negative. Ear/Nose/Mouth/Throat: Negative. Respiratory: Negative. Cardiovascular: Negative. Gastrointestinal: Negative. Genitourinary: Hematuria. Endocrine: Negative. Musculoskeletal: Negative. All other systems are negative Health Status Allergies: Allergic Reactions (Selected) No Known Allergies Current medications: Home Medications (21) Active amiloride 5 mg oral tablet See Instructions amLODIPine 5 mg Tab 5 mg = 1 tab(s), Oral, Daily aspirin 325 mg Tab 325 mg = 1 tab(s), Oral, Every other day B 100 Complex oral tablet 1 tab(s), Oral, Daily calcium (as carbonate) 600 mg oral tablet 1,200 mg = 2 tab(s), Oral, Daily Cardura 4 mg Tab 4 mg = 1 tab(s), Oral, Daily Cipro 500 mg Tab 500 mg = 1 tab(s), Oral, Daily Coreg 12.5 mg Tab 25 mg = 2 tab(s), Oral, BID EPA Fish Oil 1000 mg oral capsule 4,000 mg = 4 cap(s), Oral, Daily hydrALAZINE 50 mg Tab 50 mg = 1 tab(s), Oral, TID hydrochlorothiazide 25 mg oral tablet 25 mg = 1 tab(s), Oral, Daily Klor-Con 10 mEq 70 mEq = 7 tab(s), Oral, Daily loratadine 10 mg Tab 10 mg = 1 tab(s), Oral, Daily losartan 100 mg Tab 100 mg = 1 tab(s), Oral, Daily lovastatin 10 mg Tab 30 mg = 3 tab(s), Oral, Daily Misc Medication niacin 500 mg ER Tab 500 mg = 1 tab(s), Oral, Once a day (at bedtime) paroxetine 20 mg Tab 20 mg = 1 tab(s), Oral, Daily Singulair 10 mg Tab 10 mg = 1 tab(s), Oral, Bedtime testosterone cypionate 200 mg/mL IM Angelica 300 mg, IntraMuscular, q4wk Vitamin D 1000 intl units Tab 3,000 International_Unit = 3 tab(s), Oral, Daily Problem list: All Problems asthma / SNOMED CT 129295823 / Confirmed Hypocalcemia / SNOMED CT 5784314 / Confirmed Hypokalemia / SNOMED CT 26152992 / Confirmed Obesity / SNOMED CT 7183634796 / Confirmed Chronic heart failure / SNOMED CT 09734349 / Confirmed Hyperlipidemia / SNOMED CT 13026784 / Confirmed Hyperglycemia / SNOMED CT 036156077 / Confirmed Hypertension / SNOMED CT 52859068 / Confirmed Male hypogonadism / SNOMED CT 49952586 / Confirmed Onychomycosis / SNOMED CT 4504740674 / Confirmed Hypothyroid / SNOMED CT 87165350 / Confirmed Depression / SNOMED CT 27364608 / Confirmed Heart disease / SNOMED CT 90773290 / Confirmed Histories Past Medical History: Active asthma (620449560): Onset in 1970 at 15 years. Resolved Depression (300.4): Onset on 12/10/2009 at 54 years. Resolved. Comments: 12/10/2009 EDT 10:06 EDT - Family History: Cardiac arrhythmia Father () Malignant lymphoma Mother () Comments: 12/07/2009 0:16 EDT - Adrián RN, Merlyn Alaniz parathyroid cancer Procedure history: Colonoscopy ([id number]) on 10/08/2011 at 56 Years. Colonoscopy ([id number]) on 08/10/2011 at 56 Years. Tonsillectomy ([id number]). Social History Social & Psychosocial Habits Alcohol 11/22/2019Risk Assessment: Denies Alcohol Use Substance Abuse 11/22/2019Risk Assessment: Denies Substance Abuse Tobacco 11/22/2019Risk Assessment: Denies Tobacco Use 11/04/2021 Tobacco Use: Former smoker, quit more, Never (less than 100 in l Smokeless tobacco use: Never Ready to change: No Concerns about tobacco use in household: No . Objective He is resting comfortably and in no acute distress. Abdomen is soft and nontender. No masses are palpable. Penis is a normal phallus. Scrotum reveals 2 normal testicles. Impression and Plan Impression: #1. This gentleman's gross hematuria seems to be from prostatitis. 2. He has rather significant bladder outlet obstruction from trilobar obstruction of his prostate. 3. He has possible bladder calculi. Plan: #1. We will start him on finasteride 5 mg daily. 2. We will start him on doxycycline 100 mg twice daily for 3 weeks. 3. We will get him scheduled for urodynamics. Ultimately, he likely will need a TURP. Addendum by Yancy Wakefield on December 01, 2021 13:24 EDT Added DX: incomplete emptying Future Appointments Appointment Date:12/03/2021 08:15:00 AM Scheduled Provider: Location:[facility] Appointment Type:Urology CALL PAT FT Appointment Date:12/08/2021 08:00:00 AM Scheduled Provider: Location:[facility] Appointment Type:Urology FT Appointment Date:12/11/2021 08:20:00 AM Scheduled Provider:William Brush MD Location:[facility] Appointment Type:[place] [id number] Appointment Date:12/22/2021 08:00:00 AM Scheduled Provider:Luiz MORRISON MD Location:[facility] Appointment Type:URO Office Visit Diagnostic Tests Pending * [facility] Fish [facility] Urine Cyto ([facility]) 4/26/22 [facility]04-26-2022 Hospital Discharge instructions Patient Education 12/01/2021 08:51:54 EU - Cystoscopy Discharge Instructions (CUSTOM) Cystoscopy Voiding after the procedure: there may be some pain, burning, urgency, frequency and blood tinged urine following the procedure. These symptoms usually resolve within 2-5 days. Drink the amount of fluid it takes to keep the urine pink to yellow or clear in color. Drinking enough water and fluids will help to ease any discomfort after your procedure. If you are having problems that seem out of the ordinary, please call. If unable to contact your physician and you feel it is an emergency, go to the nearest emergency room or call 911 Diet you may resume your normal diet. Activity you may resume your normal activities Call if you have a fever over 100 degrees. Follow Up Care 11/17/2021 09:27:42 With:Luiz MORRISON Address: [facility] [address] [place] [address]- Business (1) When: Unknown Comments:Office will call to schedule follow up [facility] [facility] Evaluation + Plan note Future Scheduled Tests Radiology* CT Urogram 11/04/21 [facility] Annika [id number] Hospital Discharge instructions Patient Education 11/04/2021 11:30:36 Hematuria, Adult Hematuria, Adult Hematuria is blood in the urine. Blood may be visible in the urine, or it may be identified with a test. This condition can be caused by infections of the bladder, urethra, kidney, or prostate. Otherpossible causes include: Kidney stones. Cancer of the urinary tract. Too much calcium in the urine. Conditions that are passed from parent to child (inherited conditions). Exercise that requires a lot of energy. Infections can usually be treated with medicine, and a kidney stone usually will pass through your urine. If neither of these is the cause of your hematuria, more tests may be needed to identify the cause of your symptoms. It is very important to tell your health care provider about any blood in your urine, even if it ispainless or the blood stops without treatment. Blood in the urine, when it happens and then stops and then happens again, can be a symptom of a very serious condition, including cancer. There is no pain in the initial stages of many urinary cancers. Follow these instructions at home: Medicines Take smbp-hxr-vefvpem and prescription medicines only as told by your health care provider. If you were prescribed an antibiotic medicine, take it as told by your health care provider. Do notstop taking the antibiotic even if you start to feel better. Eating and drinking Drink enough fluid to keep your urine clear or pale yellow. It is recommended that you drink 3 4 quarts (2.8 3.8 L) a day. If you have been diagnosed with an infection, it is recommended that you drink cranberry juice in addition to large amounts of water. Avoid caffeine, tea, and carbonated beverages. These tend to irritate the bladder. Avoid alcohol because it may irritate the prostate (men). General instructions If you have been diagnosed with a kidney stone, follow your health care provider's instructions about straining your urine to catch the stone. Empty your bladder often. Avoid holding urine for long periods of time. If you are female: ?After a bowel movement, wipe from front to back and use each piece of toilet paper only once. ?Empty your bladder before and after sex. Pay attention to any changes in your symptoms. Tell your health care provider about any changes or any new symptoms. It is your responsibility to get your test results. Ask your health care provider, or the department performing the test, when your results will be ready. Keep all follow-up visits as told by your health care provider. This is important. Contact a health care provider if: You develop back pain. You have a fever. You have nausea or vomiting. Your symptoms do not improve after 3 days. Your symptoms get worse. Get help right away if: You develop severe vomiting and are unable take medicine without vomiting. You develop severe pain in your back or abdomen even though you are taking medicine. You pass a large amount of blood in your urine. You pass blood clots in your urine. You feel very weak or like you might faint. You faint. Summary Hematuria is blood in the urine. It has many possible causes. It is very important that you tell your health care provider about any blood in your urine, even ifit is painless or the blood stops without treatment. Take untx-xbc-mrdndyv and prescription medicines only as told by your health care provider. Drink enough fluid to keep your urine clear or pale yellow. This information is not intended to replace advice given to you by your health care provider. Make sure you discuss any questions you have with your health care provider. Document Released: 07/25/2006 Document Revised: 12/19/2019 Document Reviewed: 08/27/2017 [employer] Patient Education 2020 [employer]. Follow Up Care 10/06/2021 15:23:45 With:Luiz MORRISON MD, URL Address: [facility] [address], [place] [address]- [phone] When: Unknown [facility] 01-08-2021 History of Past illness Narrative* Problem Noted Date Resolved Date Epiretinal membrane (ERM) of right eye 1 09/04/2021 documented as of this encounter (statuses as of 05/21/2022) [facility] Appointment Date:12/01/2021 08:00:00 AM Scheduled Provider: Location:[facility] Appointment Type:Urology FT Appointment Date:12/11/2021 08:20:00 AM Scheduled Provider:William Brush MD Location:[facility] [address] Plan note Future Appointments Appointment Date:12/11/2021 08:20:00 AM Scheduled Provider:William Brush MD Location:[facility] Appointment Type:[facility] Appointment Date:12/22/2021 08:00:00 AM Scheduled Provider:Luiz MORRISON MD [facility] Appointments Appointment Date:12/11/2021 08:20:00 AM Scheduled Provider:William Brush MD Location:[facility] Appointment Type:[place] [address] Appointment Date:12/22/2021 08:00:00 AM Scheduled Provider:Luzi MORRISON MD Location:[facility] Appointment Type:URO Office Visit Diagnostic Tests Pending * Testosterone F&T [facility] App[facility]ments Appointment Date:12/22/2021 08:00:00 AM Scheduled Provider:Luiz MORRISON MD Location:[facility] Appointment Type:URO Office Visit Appointment Date:02/19/2022 12:30:00 PM Scheduled Provider: Location:[facility] Surgical Services Appointment Type:Surgery FT [facility] General [facility] [place] Evaluation + Plan note Future Appointments Appointment Date:02/19/2022 12:30:00 PM Scheduled Provider: Location:[facility] Services Appointment Type:Surgery FT Diagnostic Tests Pending * PSA Total 12/22/21 [facility] Evaluation + Plan note Future Appointments Appointment Date:02/19/2022 12:30:00 PM Scheduled Provider: Location:[facility] Future Appointments Appointment Date:03/02/2022 09:45:00 AM Scheduled Provider: Location:[facility] Appointment Type:Urology FT Appointment Date:03/17/2022 02:00:00 PM Scheduled Provider:Luiz MORRISON MD Location:[facility] Appointment Type:URO Office Visit Appointment Date:06/25/2022 12:30:00 PM Scheduled Provider: Location:[facility] Future Appointments Appointment Date:03/17/2022 02:00:00 PM Scheduled Provider:Luiz MORRISON MD Location:[facility] Appointment Type:URO Office Visit Appointment Date:06/25/2022 12:30:00 PM Scheduled Provider: Location:[facility] Surgical Services Appointment Type:Surgery FT Diagnostic Tests Pending * Prostate Histology ([facility]) [facility]02[facility] Future Appointments Appointment Date:06/25/2022 12:30:00 PM Scheduled Provider: Location:[facility] Services Appointment Type:Surgery FT [facility] Evaluation + Plan note Future Appointments Appointment Date:04/06/2022 02:30:00 PM Scheduled Provider:Milo Gonzales MD Location:[facility] Appointment Type:Pain Management - New (FT) Appointment Date:06/25/2022 12:30:00 PM Scheduled Provider: Location:[facility] Services Appointment Type:Surgery FT [facility] General Surgery [place] Evaluation + Plan note Future Appointments Appointment Date:05/12/2022 08:00:00 AM Scheduled Provider:Luiz MORRISON MD Location:[facility] Appointment Type:URO Office Visit Appointment Date:06/25/2022 12:30:00 PM Scheduled Provider: Location:[facility] Services Appointment Type:Surgery [facility] Evaluation + Plan note Future Appointments Appointment Date:06/24/2022 12:30:00 PM Scheduled Provider: Location:[facility] Services Appointment Type:Surgery FT Appointment Date:08/11/2022 10:30:00 AM Scheduled Provider:Luiz MORRISON MD Location:[facility] Appointment Type:URO Office Visit [facility] Evaluation + Plan note Future Appointments Appointment Date:08/11/2022 10:30:00 AM Scheduled Provider:Luiz MORRISON MD Location:[facility] Appointment Type:[facility] Future Appointments Appointment Date:11/03/2022 03:00:00 PM Scheduled Provider:Luiz MORRISON MD Location:[facility] Appointment Type[facility] Future Appointments Appointment Date:06/15/2023 01:15:00 PM Scheduled Provider:Luiz MORRISON MD Location:[facility] Appointment Type:URO Office Visit Diagnostic Tests Pending * PSA Total 11/03/22 [facility] [employer] + Plan note Future Appointments Appointment Date:06/15/2023 01:15:00 PM Scheduled Provider:Luiz MORRISON MD Location:[facility] Appointment Type:URO Office Visit Diagnostic Tests Pending * PSA Total 04/30/23 [facility] Future Appointments Appointment Date:06/20/2024 01:00:00 PM Scheduled Provider:Luiz MORRISON MD Location:[facility] Appointment Type:URO Office Visit Diagnostic Tests Pending * PSA Total 06/15/23 [facility] Evaluation + Plan note Future Appointments Appointment Date:06/20/2024 01:00:00 PM Scheduled Provider:Luiz MORRISON MD Location:[facility] Appointment Type:URO [facility] note[facility] assessment information available [facility] Work Phone: Evaluation note* Diagnosis Epiretinal membrane (ERM) of both eyes- Primary Floppy eyelid syndrome of both eyes Combined forms of age-related cataract of both eyes Other and combined forms of senile cataract Posterior vitreous detachment of both eyes Vitreous degeneration Vitreous floaters of both eyes [facility] Diagnosis Essential hypertension Unspecified essential hypertension Non-ischemic cardiomyopathy (CMS/HCC) Other primary cardiomyopathies Hyperlipidemia, unspecified hyperlipidemia type Obstructive sleep apnea, adult Morbid obesity with BMI of 40.0-44.9, adult (CMS/HCC) documented in this encounter [facility] Work Phone: History general Narrative - Reported* Type Description Date Medical History CARDIOMYOPATHY Medical History HYPERTENSION Medical History HYPOKALEMIA Medical History HYPERLIPIDEMIA Medical History FATTY LIVER Medical History ASTHMA Medical History SLEEP APNEA Medical History DEPRESSION Medical History RESTLESS LEG SYNDROME Surgical History HEMMRHOIDECTOMY 1990 Surgical History ANGIOGRAM [facility] Other Hospital course Narrative No data available for this section [facility] Hospital Discharge instructions No data available for this section [facility] No data available for this section [facility] (narrative)* Consultation (Routine) - Authorized Specialty Diagnoses / Procedures Referred By Contac t Referred To Contact Cardiology Diagnoses Essential hypertension Non-ischemic cardiomyopathy (CMS/HCC) Procedures Follow Up In Cardiology Delores Ac MD [address] [facility] [address], [address] [address] Delores Ac MD [address] [facility] [address], [address] [address] Referral ID Status Reason Start Date Expiration Date V isits Requested Visits Authorized [id number] Authorized 09/30/2023 09/29/2024 1 1 [facility] Work Phone: Summary Purpose Family History No Family History Records FoundUnknown Family Member Name Dates Details Family history of cardiomega ly: Father(V17.49, Z82.49) Status:Active Relationship Condition Age at Onset Recorded Date/T annette Not Specified Malignant neoplasm of parathyroid gland Unknown father Coronary artery disease Unknown brother Coronary artery disease Unknown Unknown Family Member Name Dates Details Family history of cardiomega ly: Father(V17.49, Z82.49) Status:Active Unknown Family Member Name Dates Details Family history of cardiomega ly: Father(V17.49, Z82.49) Status:Active Unknown Family Member Name Dates Details Family history of cardiomega ly: Father(V17.49, Z82.49) Status:Active Unknown Family Member Name Dates Details Family history of cardiomega ly: Father(V17.49, Z82.49) Status:Active Unknown Family Member Name Dates Details Family history of cardiomega ly: Father(V17.49, Z82.49) Status:Active Unknown Family Member Name Dates Details Family history of cardiomega ly: Father(V17.49, Z82.49) Status:Active Unknown Family Member Name Dates Details Family history of cardiomega ly: Father(V17.49, Z82.49) Status:Active Advance Directives No Advanced Directives Records Found Advance Directive Response Recorded Date/ Time Advance Directives No December 13, 2017 1:57pm Chief Complaint * PHU LOPEZ is being seen for an annual follow-up of. * Is in the office for follow-up for the problems noted below. He reports no symptoms of palpitationsdyspnea or chest pain and has been compliant with the CPAP machine. He dropped his weight by 10 pounds which is encouraging. He had recent blood work in July 2021 which I reviewed with him and the numbers look good. His pressures under control. His cardiopulmonary examinations were normal. * ASSESSMENT AND PLAN: * 1. Previous nonischemic cardiomyopathy completely recovered by controlling hypertension. * 2. Drug-induced gynecomastia, resolved after stopping spironolactone * 3. Hypertension, currently under control. * 4. Hyperlipidemia, on medical therapy. Have been controlled * 5. morbid Obesity. The patient again was reminded for the need to cutback * on calorie intake as he has been doing with more exercise to bring his weight under control. * 6. Obstructive sleep apnea on CPAP machine * Delores Ac MD, [facility] PHU LOEPZ is being seen for an annual follow-up of.* PHU LOPEZ is being seen for an annual follow-up of. * Patient is in the office for follow-up for the problems noted below. 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 He reports no symptoms of dyspnea or chest pain no orthopnea PND and has been compliant with CPAP machine. His weight though has remained unchanged and his blood pressure is elevated today. His heart rate also in the upper normal range. He has been compliant with low-salt diet and does not abuse alcohol. His pressure remains elevated today. He indicated not taking his morning BP medications. Has not had lipid profile which I ordered. Other labs were noted to beacceptable. His cardiovascular and pulmonary examinations were normal. He currently has no side effect of medications. * ASSESSMENT AND PLAN: * 1. Previous nonischemic cardiomyopathy completely recovered by controlling hypertension. * 2. Drug-induced gynecomastia, resolved after stopping spironolactone * 3. Hypertension, currently not under control. Advised patient to double Coreg up to 25 mg twice daily. That will help control the heart rate and blood pressure. BP check in few weeks will be scheduled * 4. Hyperlipidemia, on medical therapy. Have been controlled, lipid profile is due and was ordered. * 5. morbid Obesity. The patient again was reminded for the need to cutback * on calorie intake as he has been doing with more exercise to bring his weight under control. * 6. Obstructive sleep apnea on CPAP machine, patient has been very compliant * [facility], [facility] * PHU LOPEZ is being seen for hypertension. * Patient is in the office for hypertension management. Since we increase his Coreg up to 25 mg twicedaily his pressure is now under control. No side effect have been encountered. Present medical therapy therefore be left unchanged. Reminded the patient on the need for further work on losing weight since he is morbidly obese. 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 Chief Complaint deirdre, 1 year Medications Administered Section Active Administered Medications - up to 3 most recent administrations Medication Order MAR Action Action Date Dose Rate Site PHENYLephrine 2.5 % 1 Drop (AK-DILATE, DEBRA-SYNEPHRINE) 1 Drop, BOTH EYES, DIRECTED, Starting on Tue05/21/22 at 1530, Until 05/22/22 at 0329, Administer for dilation PROTECT FROM LIGHT Given 05/21/2022 3:30 PM EDT 1 Drop proparacaine 0.5 % 1 Drop (ALCAINE) 1 Drop, BOTH EYES, DIRECTED, Starting on Tue05/21/22 at 1530, Until 05/22/22 at 0329, Administer for pneumo tonometry, tonopen tonometry, or pachymetry. In the event of a proparacaine shortage, administer tetracaine 0.5% ophthalmic drops 1 drop in both eyes as directed for pneumo tonometry, tonopen tonometry, or pachymetry Given 05/21/2022 3:30 PM EDT 1 Drop tropicamide 1 % 1 Drop (MYDRIACYL) 1 Drop, BOTH EYES, DIRECTED, Starting on Tue05/21/22 at 1530, Until 05/22/22 at 0329, Administer for dilation Given 05/21/2022 3:30 PM EDT 1 Drop Additional Source Comments (unrecognized sect ion and content) No Status Records FoundNo Status Records FoundNo Status Records FoundNo Status Records FoundNo Status Records FoundNo Status Records FoundNo Status Records FoundNo Status Records FoundNo Status Records Found INFORMATION SOURCE (unrecogn ized section and content) DATE CREATED AUTHOR 05/19/2018 [facility] DATE CREATED AUTHOR AUTHOR'S ORGANIZ ATION 03/14/2021 [facility] DATE CREATED AUTHOR AUTHOR'S ORGANIZ ATION 09/29/2022 [facility] DATE CREATED AUTHOR AUTHOR'S ORGANIZ ATION 09/29/2022 [facility] DATE CREATED AUTHOR AUTHOR'S ORGANIZ ATION 02/24/[address] [facility] DATE CREATED AUTHOR AUTHOR'S ORGANIZ ATION 05/29/2023 [facility] DATE CREATED AUTHOR AUTHOR'S ORGANIZ ATION [facility]/30/2023 [facility] DATE CREATED AUTHOR AUTHOR'S ORGANIZ ATION 04/15/2024 [facility] DATE CREATED AUTHOR AUTHOR'S ORGANIZ ATION 04/17/2024 [facility] <item> Privacy Markings (unrecogniz ed section and content) Section Author: Anat Maxwell PROHIBITION ON REDISCLOSURE OF CONFIDENTIAL INFORMATION This notice accompanies a disclosure of information concerning a client made to you with the consent of such client. Care Teams (unrecognized sec tion and content) Team Status: Inactive Member Role Status Dates Terri Santos MD Primary Care Provider Active Luiz Morrison MD Attending Provider Active Team Status: Active Member Role Status Dates Terri Santos MD Primary Care Provider Active Team Status: Inactive Member Role Status Dates Terri Santos MD Primary Care Provider Active Burak Rangel MD Attending Provider Active Loom Setter Relationship Specialty Start Date End Date Terri Santos, DO [address] [place] [address] PCP - General Family Medicine 04/11/18 Loom [employer]ter Relationship Specialty Start Date End Date Terri Santos DO [address] [place] [id number] PCP - General 09/11/20 Goals (unrecognized section and content) Goals may be documented in a n alternate section REASON FOR VISIT (unrecogniz ed section and content) Reason Comments Epiretinal Membrane Follow Up Both eyes Reason Comments Follow-up 1yr Source Comments (unrecognize d section and content) In the event this informatio n is protected by the Federal Confidentiality of Alcohol and Drug Abuse Patient Records regulations: The Federal rules restrict any use of the information to criminally investigate or prosecute any alcohol or drug abuse patient.[facility] FOR RECORDS PERTAINING TO PATIENTS WHO ARE OR HAVE BEEN ENROLLED IN A CHEMICAL DEPENDENCY/SUBSTANCEABUSE PROGRAM, SOME INFORMATION MAY BE OMITTED. This clinical summary was aggregated from multiple sources. Caution should be exercised in using it in the provision of clinical care. This summary normalizes information from multiple sources, and as a consequence, information in this document may materially change the coding, format and clinical context of patient data. In addition, data may be omitted in some cases. CLINICAL DECISIONS SHOULD BE BASED ON THE PRIMARY CLINICAL RECORDS. [employer] [facility]. provides no warranty or guarantee of the accuracy or completeness of information in this document.
[2024-05-04 08:38] VITALS: BP 142/78; PULSE 71; O2SAT 98
== END 2024-05-04 08:50 | disposition home or self-care (01) ==
LOC: VC 07:53
PROVIDERS: PCP Radiology Diagnostic Radiology; Visit Provider Radiology Diagnostic Radiology
DX: I83.813 Varicose veins of bilateral lower extremities with pain (principal)
CPT/HCPCS: 36478

== ENCOUNTER 2024-05-11 07:25 | Outpatient (OUT) | payer OTHER, SELFPAY ==
--- NOTE | 2024-05-11 07:27 | VEIN_ITS ---
Patient Name: RACHEL NGUYEN MR#: [id number] : 1955 Exam Date: 05/11/2024 Ordering Doctor: DR MARY RATLIFF M.D. RADIOLOGY REPORT PROCEDURE: VC FACILITY EST LMTD VEIN CENTER - OFFICE VISIT FOLLOW UP COMPARISON: None. PROGRESS NOTES: The patient reports improvement in leg symptoms. There has been interval reduction in varicosities. The patient has followed our recommendations to walk 20-30 minutes once or twice per day since the procedure. Physical exam demonstrates decrease in varicosities of the leg. Persistent varicosities are identified along the legs bilaterally. Review of the ultrasound performed the same day demonstrates occlusive thrombus extending throughout the treated vein(s), see separate report, consistent with a successful ablation. No thrombus extending into or beyond the saphenofemoral junction. The patient expressed a desire to proceed with treatment of remaining incompetent varicosities. The patient was informed that treatment was a process and would require several procedures/sessions. VEIN/VC Facility EST LMTD IMPRESSION: 1. Successful ablation of the right great saphenous vein(s). 2. Persistent varicose veins and lower extremity symptoms. PLAN: 1. Endovenous laser ablation of left great saphenous vein. Nurse notes, history and physical were reviewed and confirmed, see attached forms. The nurse was present throughout the physical exam and consultation Dictated by: Mary Ratliff M.D. on 05/11/2024 at 08:03 Approved by: Mary Ratliff M.D. on 05/11/2024 at 08:04
--- NOTE | 2024-05-11 07:27 | VEIN_ITS ---
Patient Name: RACHEL NGUYEN MR#: [id number] : 1955 Exam Date: 05/11/2024 Ordering Doctor: DR MARY PEDRO M.D. RADIOLOGY REPORT PROCEDURE: VC EXT VENOUS RT LMTD COMPARISON: None. INDICATIONS: I80.01 - Phlebitis and thrombophlebitis of superficial veins right leg TECHNIQUE: Lower extremity niño scale and Duplex Doppler evaluation of the deep venous system from the inguinal ligament through the calf veins. FINDINGS: REGION: Right lower extremity. THROMBI: Negative for DVT. Heat induced thrombus in right GSV 2.6 cm from SFJ and extends to distal lower leg. COMPRESSIBILITY: Non-compressible segments corresponding to thrombus FLOW: Areas of no flow corresponding to thrombus OTHER: Calf veins not well visualized due to edema. CONCLUSION: 1. Successful post ablation occlusion of right great saphenous vein. Dictated by: Mary Pedro M.D. on 05/11/2024 at 07:53 Approved by: Mary Pedro M.D. on 05/11/2024 at 08:03
--- OUTSIDE RECORDS SUMMARY | 2024-05-11 07:28 | XMS_ITS | CCD ---
Author Organization [facility] Team Providers Care Fraud Examiner Name Role Phone Pocarrilloalska, Danyell Unavailable Unavailable Poznalska, Danyell Unavailable Unavailable [facility] Unavailable Unavailable Poznalska, Danyell Unavailable Unavailable Omar, Danyell Unavailable Unavailable Terri Santos Unavailable Unavailable Terri Santos Unavailable Chriss Marie Unavailable Unavailable Terri Santos Unavailable Unavailable Unavailable Terri Santos Primary Care Physician [phone] MD Terri Santos Primary Care Provider MD Luiz Morrison Attending Provider MD Burak Rangel Attending Provider Burak Rangel Unavailable MD Terri Santos Primary Care Provider MD Luiz Morrison Attending Provider Terri Santos DO Primary Care Provider Tom, Dr. Terri Pearce Primary Care Unava ilable Weston, Dr. Delores Fajardo Referring Jessie vailable Ac, Dr. Delores Fajardo Attending Jessie vailable Weston, Dr. Delores Fajardo Attending Jessie vailable Tom, Dr. Terri Pearce Primary Care Unava ilable Weston, Dr. Delores Fajardo Referring Jessie vailable Luiz Morrison Admitting Unavailable Luiz Morrison Attending Unavailable Terri Santos Primary Care Unavailable Luiz Morrison Admitting Unavailable Luiz Morrison Attending Unavailable Terri Santos Primary Care Unavailable Luiz Morrison Admitting Unavailable Luiz Morrison Attending Unavailable Allsoramona, Terri Primary Care Unavailable Burak Rangel Admitting Unavailable Burak Rangel Attending Unavailable Terri Santos Primary Care Unavailable MD Terri Santos Primary Care Provider MD Burak Rangel Attending Provider TERRI SANTOS Primary Care Unavailable JOSSELIN DECKER Attending Unavailable CATRACHITO BARTON Referring Unavailabl e Andresop Terri STONE Primary Care Provider Luiz MORRISON Attending Unavailable MORRISONLuiz Attending Unavailable Allsop, Terri Pfeiffer Admitting Unavailable Allsop, Terri Pfeiffer Attending Unavailable Allsop, Terri Pfeiffer Admitting Unavailable Allsop, Terri Pfeiffer Attending Unavailable Allsop, Terri Pfeiffer Referring Unavailable Luiz MORRISON Attending Unavailable Luiz MORRISON Admitting Unavailable Allsop, Terri Pfeiffer Admitting Unavailable Allsop, Terri Pfeiffer Attending Unavailable DOLCE, ADAM Pfeiffer Attending Unavailable ALLSOP, TERRI Pfeiffer Attending Unavailable DOLCE, ADAM Pfeiffer Attending Unavailable ALLSOP, TERRI Pfeiffer Attending Unavailable ALLSOP, TERRI Pfeiffer Attending Unavailable DOLCE, ADAM Pfeiffer Attending Unavailable DOLCE, ADAM Pfeiffer Attending Unavailable ADLERGUNNAR Attending Unavailable ACDELORES SALES Attending Unavailable ALLSOTERRI De La Torre Primary Care Unavailab le Allergies Allergy Classification Reported Allergen(s) Allergy Type Date of Onset Reaction(s) Facility Macrolides (antibiotic) (1 source) Clarithromycin Drug Allergy Unknown [facility] (1 source) No Known Medication Allergies; Translations: [No Known Medication Allergies] Propensity to adverse reactions to drug (disorder) [facility] (9 sources) shellfish, unspecified Allergy to substance (finding) [facility] 600 DO Work Phone: (14 sources) Clarithromycin; Translations: [clarithromycin] Drug Allergy Unknown [facility] (2 sources) Shellfish; Translations: [SHELLFISH CONTAINING PRODUCTS] Drug Allergy 3 [facility] (2 sources) Shellfish; Translations: [SHELLFISH DERIVED] Propensity to adverse reactions 4 Other [facility] Medications Current Medications Medication Drug Class(es) Dates Sig (Normalized) Sig (Original) acetaminophen 325 mg / HYDROcodone bitartrate 7.5 mg oral tablet (2 sources) Opioid Agonist Start: 02-12-2022 take 1 tablet by mouth once [place] 325 mg-7.5 mg oral tablet 1 tab(s), Oral, Once, 1 tab(s), Refill(s) 0, Take 1 hour prior to procedure. Don't drive or operate machinery while taking this medication., [facility], 178, cm, 12/22/21 8:18:00 EDT, Height/Length Dosing, 137.1, kg, 12/22/21 8:17:00 EDT,... Start Date: 02/12/22 Status: Ordered aMILoride hydrochloride 5 mg oral tablet (20 sources) Potassium-sparin g Diuretic Start: 04-13-2022 take 5 mg by mouth twice daily Amiloride Active 5 MG PO Twice daily April 13, 2022 12:00am Start: 06-27-2019 take [address] tablets [address] [facility] once daily amiloride 5 mg oral tablet See Instructions, Take 2 tablets by mouth once daily, # 180 EA, Refills(s) 1, Pharmacy: [facility], 177, cm, 08/28/20 9:27:00 EST, Height/Length Dosing, 84, kg, 08/28/20 9:27:00 EST, Weight Dosing Start Date: 10/09/20 Status: Ordered End: 09-30-2023 take 1 tablet by mouth once daily aMILoride (Midamor) 5 mg tablet Take 1 tablet (5 mg) by mouth once daily. 0 09/30/2023 Discontinued (Other) aMILoride HCl Ac tive Comment on above: TAKE 2 TABLETS BY [facility] ONCE DAILY FOR 90 DAYS amLODIPine 10 mg oral tablet (20 sources) Dihydropyridine Calcium Channel Jonathan Start: 3 take 1 tablet by mouth once daily amLODIPine 10 mg Tab 10 mg = 1 tab(s), Oral, Daily Start Date: 06/15/23 Status: Ordered Start: 06-10-2021 End: 09-30-2023 take 5 mg by mouth once daily at bedtime Amlodipine Active 5 MG PO Daily at bedtime April 13, 2022 12:00am amLODIPine Besyl ate Active Comment on above: Take 5 mg by mouth o nce daily. {1 (Ascorbic Acid 7540 MG / POLYETHYLENE GLYCOL 3350 22488 MG / Potassium Chloride 1200 MG / Sodium Ascorbate 27007 MG / Sodium Chloride 3200 MG Powder for Oral Solution) / 1 (POLYETHYLENE GLYCOL 3350 778824 MG / Potassium Chloride 1000 MG / [...] mg / cholecalciferol 0.01 mg oral tablet (5 sources) Vitamin D Start: 04-13-2022 take 1 tablet by mouth once daily at bedtime Calcium Carbonate-Vitamin D3 (Calcium 600 + D(3)) 600 mg-10 mcg (400 unit) Tablet Active 1 TAB PO Daily at bedtime April 13, 2022 12:00am CALCIUM CITRATE-VITAMIN D3 ORAL (1 source) End: 09-30-2023 CALCIUM CITRATE-VITAMIN D3 ORAL Take by mouth. 0 09/30/2023 Discontinued (Other) carvedilol 12.5 mg oral tablet (20 sources) alpha-Adrenerg ic [...] with meals. cholecalciferol 0.05 mg oral tablet (5 sources) Vitamin D Start: take 1 tablet by mouth once daily at bedtime Cholecalciferol (Vitamin D3) (Vitamin D3) 50 mcg (2,000 unit) Tablet Active 50 MCG PO Daily at bedtime April 13, 2022 12:00am 12 hr dextromethorphan hydrobromide 60 mg / guaiFENesin 1200 mg extended release oral tablet (1 source) Uncompetitive X-ajifry-B-aspartate Receptor Antagonist, Sigma-1 Agonist Start: End: take [...] tablet (20 sources) alpha-Adrenergic Jonathan Start: take 4 mg by mouth once daily at bedtime Doxazosin Active 4 MG PO Daily at bedtime April 13, 2022 12:00am Comment on above: Take 4 mg by mouth d aily at bedtime. doxycycline hyclate 100 mg oral capsule (7 sources) Tetracycline-class Drug Start: take 100 mg by mouth twice daily Doxycycline Hyclate Active 100 MG PO Twice daily 27 05April 27, 2022 12:00am Start: 12-01-2021 End: 12-22-2021 take 1 capsule by mouth twice daily doxycycline hyclate 100 mg Cap 100 mg = 1 cap(s), Oral, BID, X 21 day(s), # 42 cap(s), Refills(s) 0, Pharmacy: [facility], 178, cm, 11/26/21 12:38:00 EDT, Height/Length Dosing, 137.1, kg, 11/04/21 10:45:00 EDT, Weight Dosing Start Date: 12/01/21 Stop Date: 12/22/21 Status: Ordered erythromycin 0.02 mg/mg topical gel (13 sources) Macrolide, Macrolide Antimicrobial Start: 03-31-2022 Erygel 2% topical gel 1 juan, Topical, BID, Refill(s) 0 Start Date: 03/31/22 Status: Ordered finasteride 5 mg oral tablet (20 sources) 5-alpha Reductase Inhibitor Start: 12-01-2021 take 5 mg by mouth once daily at bedtime Finasteride Active 5 MG PO Daily at bedtime April 13, 2022 12:00am Finasteride Acti ve Comment on above: Take [...] Arteriolar Vasodilator Start: 02-21-2020 End: 05-26-2024 take 50 mg by mouth three times daily Hydralazine Active 50 MG PO Three times daily April 13, 2022 12:00am Start: 06-29-2019 hydrALAZINE (A PRESOLINE) 25 mg [...] oral tablet (20 sources) Thiazide Diuretic Start: 2019 take 25 mg by mouth once daily at bedtime Hydrochlorothiazide Active 25 MG PO Daily at bedtime April 13, 2022 12:00am hydroCHLOROthiaz canid (HYDRODIURIL, ESIDRIX) 50 mg tablet Take 25 [...] by mouth once daily. 0 Active Claritin Not-Ladonna ing Comment on above: Take by mouth once d aily. losartan potassium 100 mg oral tablet (20 sources) Angiotensin 2 Receptor Jonathan Start: 0 take 100 mg by mouth once daily at bedtime Losartan Active 100 MG PO Daily at bedtime April 13, 2022 12:00am Comment on above: Take 100 mg by [...] Ordered Start: 06-12-2019 take 1 tablet by [facility] once daily lovastatin (MEVACOR) 20 mg tablet TAKE 1 & 1 2 (ONE & ONE HALF) TABLETS BY MOUTH ONCE DAILY 9 06/12/2019 Active Start: 09-23-2017 take 3 tablets [address] [facility] once daily lovastatin 10 mg Tab 30 mg = 3 tab(s), Oral, Daily, Refills(s) 0 Start Date: 09/23/17 Status: Ordered take [address] [facility] every other day lovastatin (Mevacor) 20 mg [...] by mouth daily at bedtime. Multivitamin preparation (5 sources) Start: 2 take 1 tablet by [...] Refills: 0 Ordered: 31-Aug-2021 DO Active omega 0-tar-mek-fish oil 360 mg-108 mg- 180 mg-1,200 mg capsule (1 source) End: 09-30-2023 take 1 capsule by mouth once daily omega 9-vrq-bev-fish oil 360 mg-108 mg- 180 mg-1,200 mg capsule Take 1 capsule by mouth once daily. 0 09/30/2023 Discontinued (Other) [place]-3 Fatty Acids (3 sources) Start: 04-13-2022 take 2000 mg by mouth once daily at bedtime [place]-3 Fatty Acids Active 2000 MG PO Daily at bedtime April 13, 2022 12:00am [place]-3 Fatty Acids ([place] 3 Fish Oil) Capsule (2 sources) Start: 04-13-2022 take 1 capsule by mouth once daily at bedtime [place]-3 Fatty Acids ([place] 3 Fish Oil) Capsule Active 2000 MG PO Daily at bedtime April 13, 2022 12:00am PARoxetine hydrochloride 20 mg oral tablet (20 sources) Serotonin Reuptake Inhibitor Start: 09-23-2017 take 20 mg by mouth once daily at bedtime Paroxetine Hcl Active 20 MG PO Daily at bedtime April 13, 2022 12:00am Start: 09-23-2017 take 1 tablet by [facility] once daily paroxetine 20 mg Tab 20 [...] 12:00am Start: 10-07-2011 take 7 tablets by [facility] once daily Klor-Con 10 mEq 70 mEq = 7 tab(s), Oral, Daily, # 210, Refills(s) 0, Prophylaxis Start Date: 10/07/11 Status: Ordered Start: 10-07-2011 take 7 tablets by [facility] once daily Klor-Con 10 mEq 70 mEq = 7 tab(s), Oral, Daily, # 210, Refills(s) 0, Prophylaxis Start Date: 10/07/11 Status: Ordered Start: 10-07-2011 take 7 tablets by [facility] once daily Klor-Con 10 mEq 70 mEq [...] (ALCAINE) solifenacin succinate 10 mg oral tablet (3 sources) Cholinergic Muscarinic Antagonist Start: 2 take 1 tablet by mouth once daily Solifenacin (Vesicare) 10 mg tablet Active 10 MG PO Daily April 27, 2022 12:00am testosterone cypionate 200 mg/ml injectable solution (18 sources) Androgen Start: Testosterone Cypionate Active 300 MG IM EVERY [...] q4wk, # 2 mL, Refills(s) 4, Pharmacy: [facility], 177, cm, 08/28/20 9:27:00 EST, [...] procedure, # 2 tab(s), Refills(s) 0, Pharmacy: [facility], 178, cm, 11/04/21 10:45:00 EDT, Height/Length Dosing, [...] 0 Refills: 0 Ordered: 31-Aug-2021 DO Active [place]-3 CAPS (8 sources) [place]-3 CAPS LADONNA E DIRECTED. Quantity: 0 Refills: [...] Start: 11-22-2019 take 3 tablets by [facility] once daily Vitamin D 1000 intl units [...] Chronic Residual codes; unclassified (20 sources) Sleep apnea; Translations: [Sleep apnea, unspecified] 12-08-2021 Chronic Residual codes; unclassified (2 sources) [...] (pediatric)] Onset: 02-21-2023 Chronic Residual codes; unclassified (2 sources) Sleep apnea, unspecified; Translations: [Obstructive sleep apnea (adult)(pediatric)] 03-12-2024 Chronic Residual codes; unclassified (20 sources) Edema [...] Facility US LE Venous Duplex [place] 11-29-2023 US LE Venous Duplex Right Exam Date/Time: 11/25/2023 [...] Dyllan Kitchen M.D. Transcribed by: REGLA Technologist: HW [facility] Consent for Treatmenton 11-06 Consent for Treatment [id number] 0TIFF Normal [facility] Physician Orderon 11-18-2023 Physician Order [id number] 0TIFF Normal [facility] CBC w/ Auto Diffon 4 Basophils/100 WBC (Bld) 0.8 % Normal 0.0-2.0 F [facility] Comment on above: Performed By: #### 2 [id number], [id number], 9887655, 7964591 ####[facility] [address] [place] [address] Basophils/Leukocytes Auto (Bld) [Pure # fraction] 0.1 E9/L Normal 0.0-0.2 [facility] Comment on above: Performed By: #### 2 803334, 57817793, 6919466, 1817376 ####[address] [address] Eosinophils (Bld) [#/Vol] 0.3 E9/L Normal 0.0-0.5 [facility] Comment on above: Performed By: #### 2 148703, 91983388, 5069079, 5932670 ####[address] [address] Eosinophils/100 WBC (Bld) 3.4 % Normal 0.0-8.0 [facility] Comment on above: Performed By: #### 2 689721, 71273048, 8999083, 3322027 ####[place] [id number] Erythrocyte distribution width (RBC) [Ratio] 13.6 % Normal 10.9-14.2 [facility] Comment on above: Performed By: #### 2 570101, 35264413, 4926335, 9918338 ####[place] [address] Hematocrit (Bld) [Volume fraction] 39.9 % Normal 37.7-49.0 [facility] Comment on above: Performed By: #### 2 227954, 52131296, 9399813, 4302237 ####[address] [address] Hemoglobin (Bld) [Mass/Vol] 13.7 g/dL Normal 13.5-17.5 [facility] Comment on above: Performed By: #### 2 486795, 75995763, 3620920, 4774861 ####[address] [address] Lymphocytes (Bld) [#/Vol] 1.5 E9/L Normal 1.0-4.0 [facility] Comment on above: Performed By: #### 2 414722, 92416128, 7391682, 7454153 ####[place] [address] Lymphocytes/100 WBC (Bld) 20.2 % Normal 14.0-50.0 [facility] Comment on above: Performed By: #### 2 070574, 45285639, 7624006, 8955824 ####[place] [address] MCH (RBC) [Entitic mass] 30.4 pg Normal 27.0-34.0 [facility] Comment on above: Performed By: #### 2 499346, 40639918, 0091507, 0571600 ####[place] [address] MCHC (RBC) [Mass/Vol] 34.3 g/dL Normal 31.4-36.0 [facility] Comment on above: Performed By: #### 2 082036, 64864580, 7861296, 8059875 ####[place] [address] MCV (RBC) [Entitic vol] 88.6 fL Normal 80.0-100.0 F [facility] Comment on above: Performed By: #### 2 030141, 82258488, 9793993, 8453442 ####[place] [address] Monocytes (Bld) [#/Vol] 0.7 E9/L Normal 0.2-1.0 [facility] Comment on above: Performed By: #### 2 944908, 02603277, 2046915, 9435740 ####[place] [address] Neutrophils (Bld) [#/Vol] 5.0 E9/L Normal 2.0-7.5 [facility] Comment on above: Performed By: #### 2 086632, 38754545, 4602412, 5318160 ####[place] [address] [place] [address] Neutrophils/100 WBC (Bld) 66.1 % Normal 36.0-75.0 [facility] Comment on above: Performed By: #### 2 889912, 92911978, 3439191, 8213726 ####[address] [address] Platelet mean volume (Bld) [Entitic vol] 9.1 fL Normal 6.4-10.8 [facility] Comment on above: Performed By: #### 2 975571, 09980711, 0980243, 2447153 ####[address] [address] Platelets (Bld) [#/Vol] 216.0 E9/L Normal 150.0-500.0 [facility] Comment on above: Performed By: #### 2 124843, 08188621, 8193829, 9740938 ####[address] [address] RBC (Bld) [#/Vol] 4.5 E12/L Normal 4.3-5.9 [facility] Comment on above: Performed By: #### 2 807887, 86713035, 1641141, 0004386 ####[address] [address] WBC corrected for nucl RBC Auto (Bld) [#/Vol] 7.5 E9/L Normal 4.0-11.0 [facility] Comment on above: Performed By: #### 2 915627, 39316111, 4515156, 3142606 ####[address] [address] CHEMISTRYOrdered By: SYSTEM SYSTEM on 10-21-2023 Albumin [...] 10-21-2023 Albumin [Mass/Vol] 4.3 g/dL Normal 3.3-5.0 [facility] Comment on above: Performed By: #### 2 293588, 93439598, 2119790, 2674655 ####[facility] [address] [place] [address] Albumin/Globulin (S) [Mass conc ratio] 1.7 Normal 1.1-2.2 [facility] Comment on above: Performed By: #### 2 073648, 78068866, 5796931, 7879621 ####[facility] [address] [place] [address] ALP [Catalytic activity/Vol] 66 Int._Unit/L Normal 21-98 [facility] Comment on above: Performed By: #### 2 428646, 45931761, 5025642, 3483327 ####[facility] [address] [place] [address] ALT No additional P-5'-P [Catalytic activity/Vol] 17 Int._Unit/L Normal 6-46 [facility] Comment on above: Performed By: #### 2 964575, 76554837, 7318334, 8013429 ####[facility] [address] [place] [address] Anion gap [Moles/Vol] 13 mmol/L Normal 6-16 [facility] Comment on above: Performed By: #### 2 156419, 52858609, 6313195, 5384829 ####[facility] [address] [place] [address] AST [Catalytic activity/Vol] 17 Int._Unit/L Normal 5-43 [facility] Comment on above: Performed By: #### 2 392786, 26761212, 4794015, 9482202 ####[facility] [address] [place] [address] Bilirubin [Mass/Vol] 0.9 mg/dL Normal 0.0-1.1 [facility] Comment on above: Performed By: #### 2 868438, 40456167, 5665314, 4177742 ####[facility] [address] [place] [address] Calcium [Mass/Vol] 8.7 mg/dL Low 8.9-11.1 [facility] Comment on above: Performed By: #### 2 091359, 63659345, 1562907, 2777092 ####[facility] [address] [place] [address] Chloride [Moles/Vol] 104 mmol/L Normal 101-111 [facility] Comment on above: Performed By: #### 2 985790, 82330738, 7369848, 4315883 ####[facility] [address] [place] [address] CO2 [Moles/Vol] 27 mmol/L Normal 21-31 [facility] Comment on above: Performed By: #### 2 195923, 13440735, 2234864, 7665167 ####[facility] [address] [facility] [place] [address] Creatinine [Mass/Vol] 0.6 mg/dL Normal 0.5-1.3 [facility] Comment on above: Performed By: #### 2 367426, 90043153, 0745776, 6467820 ####[facility] [address] [facility] [place] [address] Globulin (S) [Mass/Vol] 2.6 g/dL Normal 1.4-4.0 F [facility] Comment on above: Performed By: #### 2 731880, 19664322, 8438985, 3666216 ####[facility] [address] [place] [address] Glucose [Mass/Vol] 94 mg/dL Normal 55-199 [facility] Comment on above: Performed By: #### 2 324409, 27420974, 5031371, 8353658 ####[facility] [address] [place] [address] Potassium [Moles/Vol] 3.4 mmol/L Low 3.5-5.3 [facility] Comment on above: Performed By: #### 2 871838, 98550956, 9183520, 5253425 ####[facility] [address] [place] [address] Protein [Mass/Vol] 6.9 g/dL Normal 6.0-7.8 [facility] Comment on above: Performed By: #### 2 648822, 83702149, 7571679, 6193641 ####[facility] [address] [place] [address] Sodium [Moles/Vol] 141 mmol/L Normal 135-145 [facility] Comment on above: Performed By: #### 2 793387, 42315648, 9143807, 6140076 ####[facility] [address] [place] [address] Urea nitrogen [Mass/Vol] 9 mg/dL Normal 5-21 [facility] Comment on above: Performed By: #### 2 718095, 99354068, 5126207, 8565974 ####[facility] [address] [place] [address] Urea nitrogen/Creatinine [Mass ratio] 15 No Units Normal 10-20 [facility] Comment on above: Performed By: #### 2 244246, 90295185, 3161875, 4732032 ####[facility] [address] [place] [address] Consent for Treatmenton 10-06 Consent for Treatment [id number] [id number] 0TIFF Normal [facility] HEMATOLOGYOrdered By: SYSTEM SYSTEM on 10-21-2023 [...] 10-21-2023 Cholesterol [Mass/Vol] 172 mg/dL Normal 120-200 Fi [facility] Comment on above: Performed By: #### 2 258209, 84597430, 4385620, 9394711 ####[facility] [address] [place] [address] Cholesterol in HDL [Mass/Vol] 32 mg/dL Invalid Interpretation Code [facility] Comment on above: Result Comment: '>= 60 LOW RISK' '<= 40 HIGH RISK' Performed By: #### 2 694362, 55340749, 2103677, 3251053 ####[facility] [address] [place] [address] Cholesterol in LDL [Mass/Vol] 107 mg/dL Normal <=129 [facility] Comment on above: Performed By: #### 2 357985, 67067970, 7144929, 3616246 ####[facility] [address] [place] [address] Cholesterol in VLDL [Mass/Vol] 38 mg/dL Normal 7-40 [facility] Comment on above: Performed By: #### 2 864033, 80732265, 9881042, 2430373 ####[facility] [address] [place] [address] Triglyceride [Mass/Vol] 192 mg/dL High <=149 F [facility] Comment on above: Performed By: #### 2 790191, 23176743, 6041246, 2974235 ####[facility] [address] [place] [address] Physician Orderon 10-21-2023 Physician Order [id number]. 00TIFF Normal [facility] eGFRon 10-21-2023 eGFR 105 mL/min/1.73 m2 Normal >=59 [facility] Comment on above: Order Comment: Order added by Discern Expert. Performed By: #### 2 094493, 80905172, 5201663, 7925664 ####[facility] [address] [address] [place] 06-16-2023 Screens [id number] .[id number] Normal [facility] Ambulatory Visit Summaryon 1 08-15-2022 Ambulatory Visit Summary PHU LOPEZ :1955 Visit Date:06/15/2023 Ambulatory Visit Instructions Your Diagnosis BPH with urinary obstruction History of elevated PSA Your Care Team Attending Physician - TAMIKO SAEZ, Luiz Jackson Primary Care Physician - Terri Santos DO [...] Blanco When: Where: [facility] [address], [place] [address]- Medications What How Much When Why Instructions [...] colonoscopy Fat (more content not included)... Normal [facility] Patient Educationon 06-15-20 Patient Education Urology Benign Prostatic Hyperplasia Benign [...] Follow these instructions at home: ? Take rlwl-wnv-vhwxnpu and prescription medicines only as told by [...] the medicine (more content not included)... Normal [facility] Urology Office/Clinic Noteon 06-15-2023 Urology Office/Clinic [...] to decrease. Follow-up With When Contact Information Luiz MORRISON MD, URL [facility] [address] [place] [address]- Additional Instructions: 1 yr with PSA, JEANNA Patient Education Benign Prostatic Hyperplasia I, Angelica Colmenares, personally scribed for Dr. Morrison on 06/15/2023 [...] Elevated PS (more content not included)... Normal [facility] Comment on above: Result Comment: Elec tronically Signed By: Luiz MORRISON MD\.br\Date and Time Signed: 06/15/23 14:26 EST\.br\Electronically Co-Signed By: Angelica Colmenares\.br\Date and Time Co-Signed: 06/15/23 14:24 EST PSA Totalon 05-02-2023 Prostate specific Ag [Mass/Vol] 0.5 ng/mL Normal 0.1-3.5 [facility] Comment on above: Result Comment: The concentration of PSA determined by different manufacturers can vary due to differences in assay methods and reagent specificity. Values obtained from different assay methods cannot be used interchangeably. The methodology used for this result was chemiluminescence using [employer]'s Access Hybritech PSA reagent. Performed By: #### 1 [id number] ####[facility] [address] [place] [address] Consent for Treatmenton 04-09 Consent for Treatment [id number] [id number] 0CD:127 Normal [facility] Physician Orderon 04-30-2023 Physician Order [id number]#1. 00CD:127 Normal [facility] XR Knee Complete 4+ Views Le [...] mGy = na DAP = na Normal [facility] XR Spine Lumbosacral Minimum 4 Viewson [...] mGy = na DAP = na Normal [facility] Consent for Treatmenton 12-06 Consent for Treatment [id number] [id number] 0CD:127 [facility] Physician Orderon 12-24-2022 Physician Order [id number]#1. 00CD:127 [facility] CHEMISTRYOrdered By: SYSTEM SYSTEM on 09-29-2022 Anion gap [Moles/Vol] 11 mmol/L Normal 6 - 16 mEq/L [facility] Remisol Calcium [Mass/Vol] 8.9 mg/dL Normal 8.9 - 11. 1 mg/dL FT Remisol Chloride [Moles/Vol] 101 mmol/L Normal 101 - 1 11 mmol/L FT Remisol Creatinine [Mass/Vol] 0.7 mg/dL Normal 0.5 - 1.3 mg/dL FT Remisol GFR/1.73 sq M.predicted among blacks MDRD (S/P/Bld) [Vol rate/Area] mL/min/1.73 m2 Normal >=59mL/min/ 1.73 m2 FT Chem S GFR/1.73 sq M.predicted among non-blacks MDRD (S/P/Bld) [Vol rate/Area] mL/min/1.73 m2 Normal >=59mL/min/ 1.73 m2 [facility] Chem S Glucose [Mass/Vol] 107 mg/dL Normal 55 - 199 mg/dL FT Remisol Potassium [Moles/Vol] 3.8 mmol/L Normal 3.5 - 5.3 mmol/L [facility] Remisol Sodium [Moles/Vol] 136 mmol/L Normal 135 - 145 mmol/L [facility] Remisol Urea nitrogen [Mass/Vol] 17 mg/dL Normal 5 - 21 mg/dL [facility] Remisol Urea nitrogen/Creatinine [Mass ratio] 24 mg/mg High 10 - 20 [facility] and C hemistry - challengeOrdered By: SYSTEM SYSTEM on 09-29-2022 CO2 [Moles/Vol] 28 mmol/L Normal 21 - 31 mmol/L [facility] - Hematology and Cell countsOrdered By: Leonid Leiva on 09-29-2022 HbA1c (Bld) [Mass fraction] 5.8 % Normal <=5.9% [facility] ChemAutoSS No Panel Informationon 09-29 11 {mEq/L} Normal 6-16 [facility] [employer] 600 DO Work Phone: 101 mmol/L Normal 101-111 [facility] 600 DO Work Phone: 3.8 mmol/L Normal 3.5-5.3 [facility] k 600 DO Work Phone: 136 mmol/L Normal 135-145 [facility] [employer] 600 DO Work Phone: 8.9 mg/dL Normal 8.9-11.1 [facility] k 600 DO Work Phone: 24 {No_Units} above high threshold 10-20 [facility] 600 DO Work Phone: 0.7 mg/dL Normal 0.5-1.3 [facility] k 600 DO Work Phone: 17 mg/dL Normal 5-21 [facility] k 600 DO Work Phone: 107 mg/dL Normal 55-199 [facility] [employer] 600 DO Work Phone: Comment on above: If this glucose resu lt represents a fasting glucose, interpretation should refer to the following reference range: 55-99 mg/dL >60 Normal >=59 [facility] [employer] 600 DO Work Phone: Comment on above: eGFR is race adjuste d. AA=. Chronic kidney disea se could be indicated at eGFR's of less than 60 mL/min/1.73m2. Kidney failure is indicated at less than 15 mL/min/1.73m2. Falls Screening (Age 18+)on 09-28-2022 Fall risk assessment a) No falls within the last year [facility] [employer] 600 DO Work Phone: Office Visit (Cardiology)on 09-28-2022 Follow-up visit Diagnoses/Problems Assessed Essential hypertension (401.9) (I10) Morbid obesity with BMI of 40.0-44.9, adult (278.01,V85.41) (E66.01,Z68.41) Orders Essential hypertension, Hyperlipidemia, Morbid obesity with BMI of 40.0-44.9, adult, Screening for diabetes mellitus Hemoglobin A1C; Status:Active - Retrospective Authorization; Requested for:[id number]; Essential hypertension, Non-ischemic cardiomyopathy Basic Metabolic Panel; Status:Active - Retrospective Authorization; Requested for:[id number]; Hyperlipidemia, Screening for diabetes mellitus Glucose, Fasting; Status:Active - Retrospective Authorization; Requested for:[id number]; Chief Complaint PHU LOPEZ is being seen [...] DAILY. Multi-Vitamin Oral TabletTAKE 1 TABLET DAILY. [place]-3 [place] DIRECTED. 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 He reports no symptoms of dyspnea or [...] has been very compliant Delores Ac MD, [facility] Surgical History Problems History of Complete colonoscopy [...] DAILY. Multi-Vitamin Oral TabletTAKE 1 TABLET DAILY. [place]-3 [place] DIRECTED. PARoxetine HCl - 20 MG [...] negative for complaint. Vitals Vital Signs Recorded: 96Ugo1184 10:02AM Heart Rate88, L Radial Xhzhegcb957, RUE, Sitting Gtyetmjkl75, RUE, Sitting Height5 ft 10 in Quppxq170 lb BMI Dubxieikwa72.32 kg/m2 BSA Calculated2.44 Tobacco Useb) No PHQ-2 #1. Over the last 2 weeks have you felt down, depressed or hopeless? (If yes, answer PHQ-9 below)No PHQ-2 #2. Over the last 2 weeks have you felt little i (more content not included)... Normal [employer] Tobacco Screening.on 023 Adult depression screening assessment No [facility] 600 DO Work Phone: Fall risk assessment a) No falls within the last year [facility] [employer] k 600 DO Work Phone: Tobacco use status [facility] b) No [facility] [employer] k 600 DO Work Phone: Chay 04-27-2022 L -- ---- Specimen: [id number] Received: 04/27/22 Status: HALLIE Kassi Num: [id number] Spec Type: Surgical Subm Dr: Luiz Morrison MD Tissues: A Prostate - Tur (PROSTATE TURP) Procedures: LISSETH Tavares/Lloyd Goff/Nicanor L4 ---- Age/ Patient Sex Location Account Attending Physician ---- Phu Lopez 67/M [place] [id number] Luiz Morrison MD ---- SPEC NUM: [id number] RECD: 04/27/22 STATUS: HALLIE WASHBURN NUM: [id number] CHAIM: 04/27/223 [facility] DR: Luiz Morrison MD ENTERED: 04/27/[address] [facility] DR: SPEC TYPE: Surgical DEPT: S ORDERED: HE Stain/8, Gross/Micro L4 ORDERED: HE Stain/8, Gross/Micro L4 Supplemental Report Addendum 1 Entered: 05/03/22 PIN cocktail immunohistochemical study has been performed on block A1. No definite evidence of malignancy identified on the area of concern. [id number] Addendum Signed (signature on file) Landon Perez MD 05/03/221425 ---- Pathological Diagnosis Prostate, transurethral resection: Prostate tissue with glandular and stromal hyperplasia, chronic inflammation, and prominent cautery effect. 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 See Note. Reactive urothelial mucosa with squamous metaplasia. Note: PIN immunostain pending for evaluation of possible atypical small acinar proliferation, the result will follow supplement report. ---- Specimen: [id number] Received: 04/27/22 Status: HALLIE Washburn Num: [id number] Spec Type: Surgical Subm Dr: Luiz Morrison MD Tissues: A Prostate - Tur (PROSTATE TURP) Procedures: HE Stain/8, Lloyd/Micro L4 ---- Patient: Phu Lopez Chuckie [id number] (Continued) ---- Specimen: [id number] Received: 04/27/22 (Continued) Signed (signature on file) Casa Desai MD (Michelle) 04/30/22 1044 ---- Specimen: [id number] Received: 04/27/22 Status: HALLIE Washburn Num: [id number] Spec Type: Surgical Subm Dr: Luiz Morrison MD Tissues: A Prostate - Tur (PROSTATE TURP) Procedures: HE Stain/8, Gross/Micro L4 ---- Patient: Phu Lopez [id number] (Continued) ---- Specimen: [id number] Received: 04/27/22 (Continued) Clinical Information BPH with obstruction Gross Description Received in formalin labeled with the patient's name, number and prostate is a 12 g, 6.5 x 5.0 x 2.5 cm aggregate of mooney-campuzano rubbery tissue fragments.. Entirely submitted in nine cassettes labeled A1-A9. Microscopic Description Nine glass slides with H E stained material have been examined. Pathologist interpretation was performed at [facility]. The microscopic findings support the above pathologic diagnosis. CPT Codes 49429 ---- ---- Specimen: [id number] Received: 04/27/22 Status: HALLIE Washburn Num: [id number] Spec Type: Surgical Subm Dr: Luiz Morrison MD Tissues: A Prostate - Tur (PROSTATE TURP) Procedures: HE Stain/8, Gross/Micro L4 ---- Patient: Phu Lopez [id number] (Continued) ---- Signed (signature on file) Casa Desai MD (Michelle) 04/30/22 1044 Normal [facility] SARS-CoV-2 (COVID-19) RNA MARY+probe Ql (Unsp spec) Negative Normal Negative [facility] Comment on above: Order Comment: Healt hcare Worker?: N Result Comment: Testing for SARS-CoV-2 by RT-PCR This test was developed and its performance characteristics determined by [employer]) and validated at the [facility]. This test has not been FDA [...] is terminated or revoked sooner. PERFORMED BY: [place] [address] PATHOLOGIST TURN SEWER TOI BOWER M.D. Performed By: #### C OVID 19 [facility] #### [address] COVID-19 Positive/NegativeOr dered By: Luiz Morrison on 04-23-2022 SARS-CoV-2 (COVID-19) N gene MARY+probe Ql (Resp) Negative Negative [facility] Comment on above: Testing for SARS-CoV -2 by RT-PCR This test was developed and its performance characteristics determined by [employer] ([employer]) and validated at the [facility]. This test has not been FDA [...] aPTT Coag (PPP) [Time] 29.4 s 25.1-36.5 [facility] Basic Metabolic Panelon Anion gap [Moles/Vol] 13.0 mmol/L Normal 6.0-15.0 [facility] Comment on above: Performed By: #### P T, PTT, CBC, BMP #### [facility] [address] [place] [address] [place] Calcium [Mass/Vol] 9.4 mg/dL Normal 8.2-10.2 [facility] Comment on above: Result Comment: PERF ORMED BY: [place] [address] PATHOLOGIST TURN SEWER TOI BOWER M.D. Performed By: #### P T, PTT, CBC, BMP #### [facility] [address] [place] [address] [place] Chloride [Moles/Vol] 100 mmol/L Normal 95-114 [facility] Comment on above: Performed By: #### P T, PTT, CBC, BMP #### [address] CO2 [Moles/Vol] 26.6 mmol/L Normal 22.0-30.0 [facility] Comment on above: Performed By: #### P T, PTT, CBC, BMP #### [address] Creatinine [Mass/Vol] 0.60 mg/dL Low 0.64-1.27 [facility] Comment on above: Performed By: #### P T, PTT, CBC, BMP #### [address] Estimated GFR ( Pilar > 60 Normal [facility] Comment on above: Result Comment: GFR estimated reference range: According to KDOQI guidelines, <60 ml/min/1.73m2 is sufficient to diagnose a patient with chronic kidney disease. Performed By: #### P T, PTT, CBC, BMP #### [facility] [address] [place] [address] [place] Estimated GFR (Non- Am > 60 Normal [facility] Comment on above: Performed By: #### P T, PTT, CBC, BMP #### [facility] [address] [place] [address] [place] Glucose [Mass/Vol] 112 mg/dL High 70-100 [facility] Comment on above: Result Comment: Kopperl Glucose Reference Range is dependent on time and content of last meal. Glucose of more than 200 mg/dL in a nonstressed, ambulatory subject supports the diagnosis of Diabetes Mellitus. ADA recommended reference range Performed By: #### P T, PTT, CBC, BMP #### [facility] [address] Potassium [Moles/Vol] 3.6 mmol/L Normal 3.5-5.1 [facility] Comment on above: Performed By: #### P T, PTT, CBC, BMP #### [facility] [address] Sodium [Moles/Vol] 136 mmol/L Normal 136-146 [facility] Comment on above: Performed By: #### P T, PTT, CBC, BMP #### [facility] [address] Urea nitrogen [Mass/Vol] 7 mg/dL Low 9-23 [facility] Comment on above: Performed By: #### P T, PTT, CBC, BMP #### [facility] [address] Basophils Auto (Bld) [#/Vol] Ordered By: Luiz Morrison on 04-13-2022 Basophils (Bld) [#/Vol] 0.0 10*3/uL 0.0-0.2 [facility] Basophils/100 WBC Auto (Bld) Ordered By: Luiz Morrison on 04-13-2022 Basophils/100 WBC (Bld) 0.5 % . [facility] Blood hemoglobin measurement (mass/volume)Ordered By: Luiz Morrison on 04-13-2022 Hemoglobin (Bld) [Mass/Vol] 14.4 g/dL 13.0-17.0 [facility] Blood leukocytes automated c ount (number/volume)Ordered By: Luiz Morrison on 04-13-2022 WBC (Bld) [#/Vol] 7.0 10*3/uL 4.5-11.0 [facility] Complete Blood Count Auto Di ffon 04-13-2022 Basophils (Bld) [#/Vol] 0.0 10*3/uL Normal 0.0-0.2 [facility] Comment on above: Result Comment: PERF ORMED BY: [place] [address] PATHOLOGIST TURN SEWER TOI BOWER M.D. Performed By: #### P T, PTT, CBC, BMP #### [facility] [address] [place] [address] Basophils/100 WBC (Bld) 0.5 % Normal . [facility] Comment on above: Performed By: #### P T, PTT, CBC, BMP #### [place] [address] [place] Eosinophils (Bld) [#/Vol] 0.2 10*3/uL Normal 0.0-0.45 [facility] Comment on above: Performed By: #### P T, PTT, CBC, BMP #### [address] Eosinophils/100 WBC (Bld) 2.4 % Normal . [facility] Comment on above: Performed By: #### P T, PTT, CBC, BMP #### [facility] [address] [place] [address] Erythrocyte distribution width (RBC) [Ratio] 13.3 % Normal 12.0-14.8 [facility] Comment on above: Performed By: #### P T, PTT, CBC, BMP #### [facility] [address] [place] [address] Hematocrit (Bld) [Volume fraction] 42.6 % Normal 38.8-50.0 [facility] Comment on above: Performed By: #### P T, PTT, CBC, BMP #### [facility] [address] [place] [address] Hemoglobin (Bld) [Mass/Vol] 14.4 g/dL Normal 13.0-17.0 [facility] Comment on above: Performed By: #### P T, PTT, CBC, BMP #### [facility] [address] [place] [address] [place] Lymphocytes (Bld) [#/Vol] 1.2 10*3/uL Normal 1.00-4.8 [facility] Comment on above: Performed By: #### P T, PTT, CBC, BMP #### [address] Lymphocytes/100 WBC (Bld) 17.7 % Normal . [facility] Comment on above: Performed By: #### P T, PTT, CBC, BMP #### [address] MCH (RBC) [Entitic mass] 30.6 pg Normal 27.5-35.2 [facility] Comment on above: Performed By: #### P T, PTT, CBC, BMP #### [address] MCV (RBC) [Entitic vol] 90.7 fL Normal 83.5-101 F [facility] Comment on above: Performed By: #### P T, PTT, CBC, BMP #### [address] Mean Corpuscular HGB Conc 33.8 g/dL Normal 32.5-35.6 [facility] Comment on above: Performed By: #### P T, PTT, CBC, BMP #### [address] Monocytes (Bld) [#/Vol] 0.7 10*3/uL Normal 0.0-0.8 [facility] Comment on above: Performed By: #### P T, PTT, CBC, BMP #### [address] Monocytes/100 WBC (Bld) 9.7 % Normal . [facility] Comment on above: Performed By: #### P T, PTT, CBC, BMP #### [address] Neutrophils (Bld) [#/Vol] 4.9 10*3/uL Normal 1.8-7.7 [facility] Comment on above: Performed By: #### P T, PTT, CBC, BMP #### [facility] [address] Neutrophils/100 WBC (Bld) 69.7 % Normal . [facility] Comment on above: Performed By: #### P T, PTT, CBC, BMP #### [facility] [address] Nucleated RBC/100 WBC (Bld) [Ratio] 0.0 % Normal 0-0.5 [facility] Comment on above: Performed By: #### P T, PTT, CBC, BMP #### [facility] [address] Platelet mean volume (Bld) [Entitic vol] 9.2 fL Normal 6.6-10.1 [facility] Comment on above: Performed By: #### P T, PTT, CBC, BMP #### [address] Platelets (Bld) [#/Vol] 265 10*3/uL Normal 150-450 [facility] Comment on above: Performed By: #### P T, PTT, CBC, BMP #### [address] RBC (Bld) [#/Vol] 4.70 10*6/uL Normal 3.90-5.60 [facility] Comment on above: Performed By: #### P T, PTT, CBC, BMP #### [address] WBC (Bld) [#/Vol] 7.0 10*3/uL Normal 4.5-11.0 [facility] Comment on above: Performed By: #### P T, PTT, CBC, BMP #### [place] [address] [place] Creatinine and Glomerular fi ltration rate.predicted panel (S/P/Bld)Ordered By: Luiz Morrison on 04-13-2022 Creatinine [Mass/Vol] 0.60 mg/dL 0.64-1.27 [facility] ECG 12 lead ECGon 09-06-2022 ECG 12 lead ECG [facility] [place] [address] Electrocardiograph Report Signed Patient: Phu Lopez MR#: [id number] : 1955 Acct:[id number] Age/Sex: 67 / M ADM Date: 04/13/22 Loc: PS Room: Type: [facility] [...] Signed By Roxie Gusman MD 1431 Normal [facility] Eosinophils Auto (Bld) [#/Vo l]Ordered By: Luiz Morrison on 04-13-2022 Eosinophils (Bld) [#/Vol] 0.2 10*3/uL 0.0-0.45 [facility] Eosinophils/100 WBC Auto (Bl d)Ordered By: Luiz Morrison on 04-13-2022 Eosinophils/100 WBC (Bld) 2.4 % . [facility] Erythrocyte distribution wid th Auto (RBC) [Ratio]Ordered By: Luiz Morrison on 04-13-2022 Erythrocyte distribution width (RBC) [Ratio] 13.3 % 12.0-14.8 [facility] Estimated glomerular filtrat ion rate (GFR) non- AmericanOrdered By: Luiz Morrison on 04-13-2022 GFR/1.73 sq M.predicted among non-blacks MDRD (S/P/Bld) [Vol rate/Area] > 60 mL/Min [facility] Hematocrit Auto (Bld) [Volum e fraction]Ordered By: Luiz Morrison on 04-13-2022 Hematocrit (Bld) [Volume fraction] 42.6 % 38.8-50.0 [facility] Laboratory - CoagulationOrde red By: Luiz Morrison on 04-13-2022 PT Coag (PPP) [Time] 10.8 s 9.0-12.9 [facility] Laboratory - Hematology and Cell countsOrdered By: Luiz Morrison on 04-13-2022 Nucleated RBC/100 WBC (Bld) [Ratio] 0.0 % 0-0.5 [facility] Lymphocytes Auto (Bld) [#/Vo l]Ordered By: Luiz Morrison on 04-13-2022 Lymphocytes (Bld) [#/Vol] 1.2 10*3/uL 1.00-4.8 [facility] Lymphocytes/100 WBC Auto (Bl d)Ordered By: Luiz Morrison on 04-13-2022 Lymphocytes/100 WBC (Bld) 17.7 % . [facility] MCH Auto (RBC) [Entitic mass ]Ordered By: Luiz Morrison on 04-13-2022 MCH (RBC) [Entitic mass] 30.6 pg 27.5-35.2 [facility] MCHC Auto (RBC) [Mass/Vol]Or dered By: Luiz Morrison on 04-13-2022 MCHC (RBC) [Mass/Vol] 33.8 g/dL 32.5-35.6 [facility] MCV Auto (RBC) [Entitic vol] Ordered By: Luiz Morrison on 04-13-2022 MCV (RBC) [Entitic vol] 90.7 fL 83.5-101 [facility] Monocytes Auto (Bld) [#/Vol] Ordered By: Luiz Morrison on 04-13-2022 Monocytes (Bld) [#/Vol] 0.7 10*3/uL 0.0-0.8 [facility] Monocytes/100 WBC Auto (Bld) Ordered By: Luiz Morrison on 04-13-2022 Monocytes/100 WBC (Bld) 9.7 % . [facility] Neutrophils Auto (Bld) [#/Vo l]Ordered By: Luiz Morrison on 04-13-2022 Neutrophils (Bld) [#/Vol] 4.9 10*3/uL 1.8-7.7 [facility] Neutrophils/100 WBC Auto (Bl d)Ordered By: Luiz Morrison on 04-13-2022 Neutrophils/100 WBC (Bld) 69.7 % . [facility] No Panel InformationOrdered By: Luiz Morrison on 04-13-2022 Estimated GFR () > 60 mL/Min [facility] Comment on above: GFR estimated refere nce range: According to KDOQI guidelines, <60 ml/min/1.73m2 is sufficient to diagnose a patient with chronic kidney disease. Pharmacy Creatinine Clearance (Chem N/A [facility] Partial Thromboplastin Timeo n 04-13-2022 aPTT Coag (Bld) [Time] 29.4 s Normal 25.1-36.5 [facility] Comment on above: Result Comment: PERF ORMED BY: [place] [address] PATHOLOGIST TURN SEWER TOI BOWER M.D. Performed By: #### P T, PTT, CBC, BMP #### [facility] [address] Platelet mean volume Auto (B ld) [Entitic vol]Ordered By: Luiz Morrison on 04-13-2022 Platelet mean volume (Bld) [Entitic vol] 9.2 fL 6.6-10.1 [facility] Platelet poor plasma interna tional normalized ratio (INR) by coagulation assay (relatOrdered By: Luiz Morrison on 04-13-2022 INR Coag (PPP) [Relative time] 1.0 {INR} [facility] Comment on above: INR Therapeutic Rang [...] 4.5 Platelets Auto (Bld) [#/Vol] Ordered By: Luzi Morrison on 04-13-2022 Platelets (Bld) [#/Vol] 265 10*3/uL 150-450 [facility] Prothrombin Time INRon 04-13 INR Coag (PPP) [Relative time] 1.0 {INR} Normal [facility] Comment on above: Result Comment: INR [...] #### P T, PTT, CBC, BMP #### [facility] [address] PT Coag (PPP) [Time] 10.8 s Normal 9.0-12.9 [facility] Comment on above: Performed By: #### P T, PTT, CBC, BMP #### [facility] [address] RBC Auto (Bld) [#/Vol]Ordere d By: Luiz Morrison on 04-13-2022 RBC (Bld) [#/Vol] 4.70 10*6/uL 3.90-5.60 [facility] Serum or plasma anion gap de terminationOrdered By: Luiz Morrison on 04-13-2022 Anion gap [Moles/Vol] 13.0 mmol/L 6.0-15.0 [facility] Serum or plasma calcium anne urement (mass/volume)Ordered By: Luiz Morrison on 04-13-2022 Calcium [Mass/Vol] 9.4 mg/dL 8.2-10.2 [facility] Serum or plasma chloride neo surement (moles/volume)Ordered By: Luiz Morrison on 04-13-2022 Chloride [Moles/Vol] 100 mmol/L 95-114 [facility] Serum or plasma glucose anne urement (mass/volume)Ordered By: Luiz Morrison on 04-13-2022 Glucose [Mass/Vol] 112 mg/dL 70-100 [facility] Comment on above: ADA recommended refe rence range Random Glucose Reference Range is dependent on time and content of last meal. Glucose of more than 200 mg/dL in a nonstressed, ambulatory subject supports the diagnosis of Diabetes Mellitus. Serum or plasma potassium me asurement (moles/volume)Ordered By: Luiz Morrison on 04-13-2022 Potassium [Moles/Vol] 3.6 mmol/L 3.5-5.1 [facility] Serum or plasma sodium measu rement (moles/volume)Ordered By: Luiz Morrison on 04-13-2022 Sodium [Moles/Vol] 136 mmol/L 136-146 [facility] Serum or plasma total carbon dioxide measurement (moles/volume)Ordered By: Luiz Morrison on 04-13-2022 CO2 [Moles/Vol] 26.6 mmol/L 22.0-30.0 [facility] Serum or plasma urea nitroge n measurement (mass/volume)Ordered By: Luiz Morrison on 04-13-2022 Urea nitrogen [Mass/Vol] 7 mg/dL 9-23 [facility] CHEMISTRYOrdered By: Gabriel rendon on 04-01-2022 HbA1c (Bld) [Mass fraction] 5.3 % Normal <=5.9% [facility] Chem[employer] Creatinine (Bld) [Mass/Vol]O rdered By: Luiz Morrison on 01-21-2022 Creatinine [Mass/Vol] 0.8 mg/dL 0.6-1.3 [facility] Comment on above: ER/ESD physician is notified/shown all ISTAT results. Critical values may be confirmed by laboratory testing if deemed necessary by ER attending doctor. No Panel InformationOrdered By: Luiz Morrison on 01-21-2022 POC Estimated GFR > 60 [facility] Comment on above: GFR estimated refere nce range: According to KDOQI guidelines, <60 ml/min/1.73m2 is sufficient to diagnose a patient with chronic kidney disease. POC Estimated GFR Non- Amer > 60 [facility] CHEMISTRYOrdered By: SYSTEM SYSTEM on 12-22-2021 Free PSA [Mass/Vol] 0.7 ng/mL Invalid Interpretation Code [facility] Remisol Free PSA/Total PSA [Mass fraction] 11.0 [...] 0.7 mg/dL Normal 0.5 - 1.3 mg/dL [facility] Remisol GFR/1.73 sq M.predicted among blacks MDRD (S/P/Bld) [Vol rate/Area] mL/min/1.73 m2 Normal >=59mL/min/ 1.73 m2 [facility] Chem S GFR/1.73 sq M.predicted among non-blacks MDRD (S/P/Bld) [Vol rate/Area] mL/min/1.73 m2 Normal >=59mL/min/ 1.73 m2 [facility] Chem S Globulin (S) [Mass/Vol] 3.8 g/dL Normal 1.4 - 4.0 gm/dL [facility] Remisol Glucose [Mass/Vol] 96 mg/dL Normal 55 - 199 mg/dL [facility] Remisol Potassium [Moles/Vol] 4.2 mmol/L Normal 3.5 - 5.3 mmol/L [facility] Remisol Prostate specific Ag [Mass/Vol] 23.2 ng/mL High 0.1 - 3.5 ng/mL [facility] Remisol Protein [Mass/Vol] 7.1 g/dL Normal 6.0 - 7.8 gm/dL [facility] Remisol Sodium [Moles/Vol] 137 mmol/L Normal 135 - 145 mmol/L [facility] Remisol Urea nitrogen [Mass/Vol] 12 mg/dL Normal 5 - 21 mg/dL [facility] Remisol Urea nitrogen/Creatinine [Mass ratio] 17 mg/mg Normal 10 - 20 [facility] Remisol HEMATOLOGYOrdered By: Stephanie jamison on 12-10-2021 Erythrocyte distribution width (RBC) [Ratio] 13.4 % Normal 10.9 - 14.2 % [facility] HemeAutoSS Hematocrit (Bld) [Volume fraction] 39.2 % Normal 37.7 - 49.0 % [facility] HemeAutoSS Hemoglobin (Bld) [Mass/Vol] 13.5 g/dL Normal 13.5 - 17.5 gm/dL [facility] HemeAutoSS MCH (RBC) [Entitic mass] 30.8 pg Normal 27.0 - 34.0 pg [facility] HemeAutoSS MCHC (RBC) [Mass/Vol] 34.6 g/dL Normal 31.4 - 36.0 gm/dL [facility] HemeAutoSS MCV (RBC) [Entitic vol] 89.0 fL Normal 80.0 - 100.0 fL [facility] HemeAutoSS Platelet mean volume (Bld) [Entitic vol] 8.6 fL Normal 6.4 - 10.8 fL [facility] HemeAutoSS Platelets (Bld) [#/Vol] 270.0 E9/L Normal 150. 0 - 500.0 E9/L [facility] HemeAutoSS RBC (Bld) [#/Vol] 4.4 E12/L Normal 4.3 - 5.9 E12/L [facility] HemeAutoSS WBC corrected for nucl RBC Auto (Bld) [#/Vol] 8.4 E9/L Normal 4.0 - 11.0 E9/L [facility] HemeAutoSS CHEMISTRYOrdered By: SYSTEM SYSTEM on 11-19-2021 Creatinine [Mass/Vol] 0.7 mg/dL Normal 0.5 - 1.3 mg/dL [facility] Remisol GFR/1.73 sq M.predicted among blacks MDRD (S/P/Bld) [Vol rate/Area] mL/min/1.73 m2 Normal >=59mL/min/ 1.73 m2 [facility] Chem S GFR/1.73 sq M.predicted among non-blacks MDRD (S/P/Bld) [Vol rate/Area] mL/min/1.73 m2 Normal >=59mL/min/ 1.73 m2 [facility] Chem S Tobacco Screening.on 022 Fall risk assessment a) No falls within the last year -[facility] k 600 DO Work Phone: Tobacco use status CPHS b) No M -[facility] k 600 DO Work Phone: CORONAVIRUS 2019 BY PCRon SARS-CoV-2 (COVID-19) RNA MARY+probe Ql (Unsp spec) Not detected Normal Not Detected [facility] Comment on above: Result Comment: . This [...] this test method. Fact sheet for providers: https://www.fda.gov/media/030009/download Fact sheet for patients: https://www.fda.gov/media/713099/download This test has received FDA Emergency Use Authorization [EUA] and has been verified by [facility] ([facility]). This test is only authorized for the duration of time that circumstances exist to justify the authorization of the emergency use of in vitro diagnostic tests for the detection of SARS-CoV-2 virus and/or diagnosis of COVID-19 infection under section 564(b)(1) of the Act, 21 U.S.C. 360bbb-3(b)(1), unless the authorization is terminated or revoked sooner. [facility] is certified under CLIA-88 as qualified to perform high complexity testing. Testing is performed in the [facility] laboratories [place] [address] [place] [address]. Performed By: #### C OV19 #### [facility] [id number] [place] [address]. [place] [address] Covid 19 Resultson 1 SARS-CoV-2 (COVID-19) RNA [...] You may also be contacted by the [facility] to see if any of your close [...] or Naproxen (Aleve) can also be used. Grjf-rsr-cauusqq cough and cold medicines can be used according to the instructions on the package. Some fqjs-dij-mdilgqa medicines also contain acetaminophen. Make sure you [...] water are not available, use alcohol-based hand filament tester. Avoid touching your eyes, nose, and mouth [...] for 24 matias (more content not included)... [facility] CORONAVIRUS 2019 BY PCRon DATE OF SYMPTOM ONSET [YYYYMMDD]? [id number] [facility] Comment on above: Performed By: #### C OV19 #### [facility] [address] [place] [address] Lab Specimen Source Nasal, Nasopharyngeal [facility] Comment on above: Performed By: #### C OV19 #### [facility] [address] [place] [address] Provider Note - ED v2on 08-0 Provider Note - ED v2 Provider Note [...] SIGNS: T PRBP SpO2O2(LPM) %FiO2 Method 10-Mar-2021 13:09:[id number] 95 PHYSICAL EXAM CONSTITUTIONAL: Appearance: well appearing [...] with instruction (more content not included)... Normal [facility] CORONAVIRUS 2019 BY PCRon SARS-CoV-2 (COVID-19) RNA MARY+probe Ql (Unsp spec) Not detected Normal Not Detected [facility] Comment on above: Result Comment: . This [...] patient management decisions. Fact sheet for providers: https://www.fda.gov/media/907121/download Fact sheet for patients: https://www.fda.gov/media/352713/download This test has received FDA Emergency Use Authorization (EUA) and has been verified by [facility] ([facility]). This test is only authorized for the duration of time that circumstances exist to justify the authorization of the emergency use of in vitro diagnostic tests for the detection of SARS-CoV-2 virus and/or diagnosis of COVID-19 infection under section 564(b)(1) of the Act, 21 U.S.C. 360bbb-3(b)(1), unless the authorization is terminated or revoked sooner. [facility] is certified under CLIA-88 as qualified to perform high complexity testing. Testing is performed in the [facility] laboratories located at [address] [place] [address]. Performed By: #### C OV19 #### [address] [place] [address] Covid 19 Resultson 1 SARS-CoV-2 (COVID-19) RNA [...] You may also be contacted by the [facility] to see if any of your [...] or Naproxen (Aleve) can also be used. Guid-whw-mvcmuwq cough and cold medicines can be used according to the instructions on the package. Some trfp-foq-agmanqu medicines also contain acetaminophen. Make sure you [...] water are not available, use alcohol-based hand filament tester. Avoid touching your eyes, nose, and mouth [...] like ibuprofen (Motrin) (more content not included)... [facility] CORONAVIRUS 2019 BY PCRon DATE OF SYMPTOM ONSET [YYYYMMDD]? [id number] [facility] Comment on above: Performed By: #### C OV19 #### [facility] [address] [place] [id number] Lab Specimen Source Nasal, Nasopharyngeal [facility] Comment on above: Performed By: #### C OV19 #### [facility] [address] [place] [address] Provider Note - ED v2on Provider Note [...] and symptoms. Symptoms have been refractory to lipb-vsk-gxjckfx medications.. Triage Information: Most recent Vital Sign [...] Updated: 12-Sep-2020 09:08 by Emile Michelle (PAC) [facility] Provider Note - ED v2on 113 Provider Note - ED v2 Provider Note [...] SIGNS: T PRBP SpO2O2(LPM) %FiO2 Method 07-Jul-2020 13:05:[id number]/ [id number] 97 PHYSICAL EXAM CONSTITUTIONAL: Appearance: well [...] exam a (more content not included)... Normal [facility] URINE CULTURE,BACTERIALon URINE CULTURE,BACTERIAL PATIENT: JONO LOPEZ LOCATION: [facility] BILL#: [id number] : 57 AGE: SEX: M ORDERED BY: CHRISS MARIE SOURCE: URINE COLLECTED: 07/07/20 14:07 ANTIBIOTICS AT CHAIM.: RECEIVED : 07/07/20 19:19 SITE: R E S U L T S URINE CULTURE,BACTERIAL FINAL 07/08/20 12:57 NO SIGNIFICANT GROWTH. Normal [facility] Comment on above: Performed By: #### [facility] #### [facility] [address] [place] [address] OCT MACULA CIRRUS OU (BOTH E YES) [facility] Vital Signs Date Time Vital Sign Value Performing Clinician Facility 05-07-2024 13:42-0400 Body height 177.8 cm [facility] 05-07-2024 13:42-0400 Body mass index (BMI) [Ratio] 41.7 kg/m2 [facility] 05-07-2024 13:42-0400 Body weight 131.99 kg [facility] 05-07-2024 13:42-0400 Diastolic blood pressure 69 mm[Hg] [facility] 05-07-2024 13:42-0400 Heart rate 78 /min [facility] 05-07-2024 13:42-0400 SaO2% (BldA) [Mass fraction] 96 % [facility] 05-07-2024 13:42-0400 Systolic blood pressure 148 mm[Hg] [facility] 03-12-2024 13:59-0400 Body height 177.8 cm [facility] 03-12-2024 13:59-0400 Body mass index (BMI) [Ratio] 40.7 kg/m2 [facility] 03-12-2024 13:59-0400 Body weight 128.82 kg [facility] 03-12-2024 13:59-0400 Diastolic blood pressure 69 mm[Hg] [facility] 03-12-2024 13:59-0400 Heart rate 75 /min [facility] 03-12-2024 13:59-0400 SaO2% (BldA) [Mass fraction] 94 % [facility] 03-12-2024 13:59-0400 Systolic blood pressure 140 mm[Hg] [facility] 09-30-2023 08:46-0500 Body height 177.8 cm Delores Ac MD Work Phone: [facility] 09-30-2023 08:46-0500 Body mass index (BMI) [Ratio] 42.04 kg/m2 Delores Ac MD Work Phone: [facility] 09-30-2023 08:46-0500 Body weight 132.9 kg Delores Ac MD Work Phone: [facility] 09-30-2023 08:46-0500 Diastolic blood pressure 60 mm[Hg] Delores Ac MD Work Phone: [facility] 09-30-2023 08:46-0500 Heart rate 76 /min Delores Ac MD Work Phone: [facility] 09-30-2023 08:46-0500 Systolic blood pressure 138 mm[Hg] Delores Ac MD Work Phone: [facility] 06-15-2023 13:25-0500 Diastolic blood pressure 90 mm[Hg] Luiz MORRISON [facility] 06-15-2023 13:25-0500 Mean blood pressure 110 mm[Hg] Luiz MORRISON [facility] 06-15-2023 13:25-0500 Systolic blood pressure 150 mm[Hg] Luiz MORRISON [facility] 06-15-2023 13:20-0500 Blood Pressure Location Luiz MORRISON [facility] 06-15-2023 13:20-0500 Diastolic blood pressure 94 mm[Hg] Luiz MORRISON [facility] 06-15-2023 13:20-0500 Heart rate 83 /min Luiz MORRISON [facility] 06-15-2023 13:20-0500 Systolic blood pressure 150 mm[Hg] Luiz MORRISON [facility] 02-21-2023 13:30-0400 Body height 172.72 cm Burak Rangel Other [facility] Other 02-21-2023 13:30-0400 Body mass index (BMI) [Ratio] 44.55 kg/m2 Buark Rangel Other [facility] 02-21-2023 13:30-0400 Body weight 132.9 kg Burak Rangel Other [facility] Other 02-21-2023 13:30-0400 Diastolic blood pressure 71 mm[Hg] Burak Rangel Other [facility] Other 02-21-2023 13:30-0400 SaO2% (BldA) [Mass fraction] 96 % Burak Rangel Other [facility] Other 02-21-2023 13:30-0400 Systolic blood pressure 167 mm[Hg] Burak Rangel Other [facility] 11-03-2022 15:48-0400 Blood Pressure Location Luiz MORRISON [facility] 11-03-2022 15:48-0400 Diastolic blood pressure 76 mm[Hg] Luiz MORRISON [facility] 11-03-2022 15:48-0400 Heart rate 76 /min Luiz MORRISON [facility] 11-03-2022 15:48-0400 Systolic blood pressure 138 mm[Hg] Luiz MORRISON [facility] 09-28-2022 12:04-0500 Diastolic blood pressure 60 mm[Hg] Terri Santos Work Phone: [facility] 600 DO Work Phone: 09-28-2022 12:04-0500 Systolic blood pressure 118 mm[Hg] Terri Powellsop Work Phone: [facility] 600 DO Work Phone: 09-28-2022 11:58-0500 Diastolic blood pressure 42 mm[Hg] Terri Powellsop Work Phone: [facility] 600 DO Work Phone: 09-28-2022 11:58-0500 Systolic blood pressure 118 mm[Hg] Terri Powellsop Work Phone: [facility] 600 DO Work Phone: 09-28-2022 11:57-0500 Body height 177.8 cm Terri Powellsop Work Phone: [facility] 600 DO Work Phone: 09-28-2022 11:57-0500 Body mass index (BMI) [Ratio] 40.89 kg/m2 Terri Powellsop Work Phone: [facility] 600 DO Work Phone: 09-28-2022 11:57-0500 Body surface area Derived from formula 2.43 m2 Terri Powellsop Work Phone: [facility] 600 DO Work Phone: 09-28-2022 11:57-0500 Body weight 129.28 kg Terri Powellsop Work Phone: [facility] 600 DO Work Phone: 09-28-2022 11:57-0500 Diastolic blood pressure 44 mm[Hg] Terri Powellsop Work Phone: [facility] 600 DO Work Phone: 09-28-2022 11:57-0500 Heart rate 80 /min Terri Allsop Work Phone: [facility] 600 DO Work Phone: 09-28-2022 11:57-0500 Systolic blood pressure 120 mm[Hg] Terri Allsop Work Phone: [facility] 600 DO Work Phone: 09-10-2022 10:02-0500 Body height 177.8 cm Terri Allsop Work Phone: [facility] 600 DO Work Phone: 09-10-2022 10:02-0500 Body mass index (BMI) [Ratio] 41.32 kg/m2 Terri Allsop Work Phone: [facility] 600 DO Work Phone: 09-10-2022 10:02-0500 Body surface area Derived from formula 2.44 m2 Terri Allsop Work Phone: [facility] 600 DO Work Phone: 09-10-2022 10:02-0500 Body weight 130.64 kg Terri Allsop Work Phone: [facility] 600 DO Work Phone: 09-10-2022 10:02-0500 Diastolic blood pressure 70 mm[Hg] Terri Allsop Work Phone: [facility] 600 DO Work Phone: 09-10-2022 10:02-0500 Heart rate 88 /min Terri Allsop Work Phone: [facility] 600 DO Work Phone: 09-10-2022 10:02-0500 Systolic blood pressure 162 mm[Hg] Terri Santos Work Phone: [facility] 600 DO Work Phone: 06-24-2022 13:10-0500 Blood Pressure Location William Mourany [facility] 06-24-2022 13:10-0500 Diastolic blood pressure 87 mm[Hg] William Mourany [facility] 06-24-2022 13:10-0500 Heart rate 91 /min Wililam Mourany [facility] 06-24-2022 13:10-0500 Respiratory rate 21 /min William Mourany [facility] 06-24-2022 13:10-0500 SaO2% (BldA) [Mass fraction] 97 % William Mourany [facility] 06-24-2022 13:10-0500 Systolic blood pressure 152 mm[Hg] William Mourany [facility] 06-24-2022 13:05-0500 Blood Pressure Location William Mourany [facility] 06-24-2022 13:05-0500 Diastolic blood pressure 94 mm[Hg] William Mourany [facility] 06-24-2022 13:05-0500 Heart rate 91 /min William Mourany [facility] 06-24-2022 13:05-0500 Respiratory rate 24 /min William Mourany [facility] 06-24-2022 13:05-0500 SaO2% (BldA) [Mass fraction] 97 % William Mourany [facility] 06-24-2022 13:05-0500 Systolic blood pressure 164 mm[Hg] William Mourany [facility] 06-24-2022 13:00-0500 Heart rate 92 /min William Mourany [facility] 06-24-2022 13:00-0500 Respiratory rate 18 /min William Mourany [facility] 06-24-2022 13:00-0500 SaO2% (BldA) [Mass fraction] 96 % William Mourany [facility] 06-24-2022 13:00-0500 Systolic blood pressure 162 mm[Hg] William Mourany [facility] 06-24-2022 12:40-0500 Body temperature 97.16 [degF] William Oquendourany [facility] 06-24-2022 12:37-0500 Respiratory rate 20 /min William Mourany [facility] 06-24-2022 12:30-0500 Respiratory rate 20 /min William Mourany [facility] 06-24-2022 12:25-0500 Respiratory rate 20 /min William Mourany [facility] 06-24-2022 11:31-0500 Body temperature 97.16 [degF] William Oquendourany [facility] 05-12-2022 08:06-0400 Blood Pressure Location Luiz MORRISON [facility] 05-12-2022 08:06-0400 Diastolic blood pressure 80 mm[Hg] Luiz MORRISON [facility] 05-12-2022 08:06-0400 Heart rate 80 /min Luiz MORRISON [facility] 05-12-2022 08:06-0400 Respiratory rate 16 /min Luiz MORRISON [facility] 05-12-2022 08:06-0400 Systolic blood pressure 151 mm[Hg] Luiz MORRISON [facility] 04-28-2022 11:54-0400 Body temperature 99.2 [degF] MD Terri Santos Work Phone: [facility] 04-28-2022 11:54-0400 Diastolic blood pressure 91 mm[Hg] MD Terri Santos Work Phone: [facility] 04-28-2022 11:54-0400 Heart rate 92 /min MD Terri Santos Work Phone: [facility] 04-28-2022 11:54-0400 Respiratory rate 18 /min MD Terri Santos Work Phone: [facility] 04-28-2022 11:54-0400 SaO2% (BldA) [Mass fraction] 92 % MD Terri Santos Work Phone: [facility] 04-28-2022 11:54-0400 Systolic blood pressure 173 mm[Hg] MD Terri Santos Work Phone: [facility] 04-28-2022 05:14-0400 Body weight 126.5 kg MD Terri Santos Work Phone: [facility] 04-27-2022 10:48-0400 Inhaled oxygen flow rate 6 L/min MD Terri Santos Work Phone: [facility] 04-27-2022 09:08-0400 Body height 180.34 cm MD Terri Santos Work Phone: [facility] 04-27-2022 09:08-0400 Body mass index (BMI) [Ratio] 37.6 kg/m2 MD Terri Santos Work Phone: [facility] 04-01-2022 10:10-0400 Blood Pressure Location Leonid NILL [facility] [place] 04-01-2022 10:10-0400 Diastolic blood pressure 69 mm[Hg] Leonid NILL [facility] 04-01-2022 10:10-0400 Heart rate 79 /min Leonid NILL [facility] 04-01-2022 10:10-0400 Respiratory rate 16 /min Leonid NILL [facility] [place] 04-01-2022 10:10-0400 Systolic blood pressure 167 mm[Hg] Leonid NILL [facility] 02-22-2022 14:45-0400 Body height 172.72 cm Compajuan Rangel Other [facility] [employer] Other 02-22-2022 14:45-0400 Body mass index (BMI) [Ratio] 45.08 kg/m2 Burak Rangel Other [facility] Other 02-22-2022 14:45-0400 Body temperature 97.5 [degF] Burak Rangel Other [facility] Other 02-22-2022 14:45-0400 Body weight 134.49 kg Burak Rangel Other [facility] Other 02-22-2022 14:45-0400 Diastolic blood pressure 75 mm[Hg] Burak Rangel Other [facility] Other 02-22-2022 14:45-0400 SaO2% (BldA) [Mass fraction] 96 % Burak Rangel Other [facility] Other 02-22-2022 14:45-0400 Systolic blood pressure 148 mm[Hg] Burak Rangel Other [facility] Other 12-22-2021 08:15-0400 Blood Pressure Location Luiz MORRISON [facility] 12-22-2021 08:15-0400 Diastolic blood pressure 71 mm[Hg] Luiz MORRISON [facility] 12-22-2021 08:15-0400 Heart rate 74 /min [facility] 12-22-2021 08:15-0400 Systolic blood pressure 139 mm[Hg] Luiz MORRISON [facility] 12-11-2021 08:18-0400 Blood Pressure Location William [facility] [place] 12-11-2021 08:18-0400 Diastolic blood pressure 77 mm[Hg] William [facility] [place] 12-11-2021 08:18-0400 Heart rate 77 /min William [facility] [place] 12-11-2021 08:18-0400 Systolic blood pressure 155 mm[Hg] William Br[facility] [place] 11-04-2021 10:36-0400 Blood Pressure Location Luiz MORRISON [facility] 11-04-2021 10:36-0400 Diastolic blood pressure 78 mm[Hg] Luiz MORRISON [facility] 11-04-2021 10:36-0400 Heart rate 85 /min Luiz MORRISON [facility] 11-04-2021 10:36-0400 Respiratory rate 16 /min Luiz MORRISON [facility] 11-04-2021 10:36-0400 Systolic blood pressure 144 mm[Hg] Luiz MORRISON [facility] 08-31-2021 15:23-0500 Diastolic blood pressure 60 mm[Hg] Terri Powellsop Work Phone: [facility] 600 DO Work Phone: 08-31-2021 15:23-0500 Systolic blood pressure 130 mm[Hg] Terri Powellsop Work Phone: [facility] 600 DO Work Phone: 08-31-2021 15:08-0500 Body height 177.8 cm Terri Powellsop Work Phone: [facility] 600 DO Work Phone: 08-31-2021 15:08-0500 Body mass index (BMI) [Ratio] 40.89 kg/m2 Terri Allsop Work Phone: [facility] 600 DO Work Phone: 08-31-2021 15:08-0500 Body surface area Derived from formula 2.43 m2 Terri Allsop Work Phone: [facility] 600 DO Work Phone: 08-31-2021 15:08-0500 Body weight 129.28 kg Terri Allsop Work Phone: [facility] 600 DO Work Phone: 08-31-2021 15:08-0500 Diastolic blood pressure 79 mm[Hg] Terri Allsop Work Phone: [facility] 600 DO Work Phone: 08-31-2021 15:08-0500 Heart rate 75 /min Terri Allsop Work Phone: [facility] 600 DO Work Phone: 08-31-2021 15:08-0500 Systolic blood pressure 144 mm[Hg] Terri Allsop Work Phone: [facility] 600 DO Work Phone: 03-10-2021 15:09-0400 Body height 177.8 cm Terri Allsop Other Phone: [facility] 03-10-2021 15:09-0400 Body temperature 98.42 [degF] Terri Allsop Other Phone: [facility] 03-10-2021 15:09-0400 Diastolic blood pressure 70 mm[Hg] Terri Allsop Other Phone: [facility] 03-10-2021 15:09-0400 Heart rate 82 /min Terri Allsop Other Phone: [facility] 03-10-2021 15:09-0400 SaO2% (BldA) [Mass fraction] 95 % Terri Allsop Other Phone: [facility] 03-10-2021 15:09-0400 Systolic blood pressure 132 mm[Hg] Terri Allsop Other Phone: [facility] Encounters Encounter Date Encounter Type Care Provider Facility Start: 05-07-2024 End: 05-07-2024 ambulatory [facility] Work Phone: Start: 05-07-2024 End: 05-07-2024 Patient encounter procedure [facility] Work Phone: Start: 04-13-2024 End: 04-13-2024 ambulatory GUNNAR ADLER Not Available Start: 03-26-2024 End: 03-26-2024 ambulatory ADAM D DOLCE Not Available Start: 03-12-2024 End: 03-12-2024 Patient encounter procedure [facility] Work Phone: Start: 01-09-2024 End: 01-09-2024 ambulatory ADAM D DOLCE Not Available Start: 12-01-2023 End: 12-01-2023 ambulatory TERRI D ALLSOP Not Available Start: 11-25-2023 End: 11-26-2023 ambulatory Terri D Allsop Facility:[facility] Start: 11-25-2023 End: 11-25-2023 Patient encounter procedure Terri D Allsop [facility] Start: 11-17-2023 End: 11-17-2023 ambulatory TERRI D ALLSOP Not Available Start: 10-31-2023 End: 10-31-2023 ambulatory ADAM D DOLCE Not Available Start: 10-21-2023 End: 10-22-2023 ambulatory Terri Margarette Allsop Facility:[facility] Start: 10-21-2023 End: 10-21-2023 Patient encounter procedure Terri Pfeiffer Allsop [facility] Start: 09-30-2023 End: 09-30-2023 Office outpatient visit 25 minutes Delores Ac MD Work Phone: [facility] Comment on above: Essential hypertensi on; Non-ischemic cardiomyopathy ([facility]/HCC); Hyperlipidemia, unspecified hyperlipidemia type; Obstructive sleep apnea, adult; Morbid obesity with BMI of 40.0-44.9, adult (CMS/HCC) Start: 09-30-2023 End: 09-30-2023 ambulatory [facility] Start: 08-25-2023 End: 08-25-2023 ambulatory TERRI Pfeiffer ALLSOP Not Available Start: 08-22-2023 End: 08-22-2023 ambulatory ADAM Margarette DOLCE Not Available Start: 06-15-2023 End: 06-16-2023 ambulatory Luiz MORRISON [facility] Start: 06-15-2023 End: 06-15-2023 Patient encounter procedure Luiz MORRISON [facility] [place] Start: 05-27-2023 End: 05-27-2023 ambulatory TERRI Pfeiffer ALLSOP Facility:[facility] Start: 04-30-2023 End: 05-01-2023 ambulatory Luiz MORRISON Facility:[facility] Start: 04-30-2023 End: 04-30-2023 Patient encounter procedure Luiz MORRISON [facility] Start: 02-21-2023 Office outpatient vi sit 15 minutes [facility] Start: 02-21-2023 End: 02-21-2023 ambulatory [facility] Work Phone: Start: 02-21-2023 End: 02-21-2023 Patient encounter procedure MD Terri Santos Work Phone: [facility] Work Phone: Start: 12-24-2022 End: 12-25-2022 ambulatory Treri Santos Facility:[facility] Start: 11-04-2022 Rx Renewal Terri Rm p Work Phone: [facility] 250 DO Work Phone: Start: 11-03-2022 End: 11-03-2022 Patient encounter procedure Luiz MORRISON [facility] Start: 09-29-2022 Chart Update Terri Rm p Work Phone: [facility] 600 DO Work Phone: Start: 09-29-2022 End: 09-29-2022 Patient encounter procedure Delores Ac [facility] Start: 09-28-[address] Delores Ac Facility: Start: 09-28-2022 Office outpatient vi sit 10 minutes [facility] Work Phone: Start: 09-10-2022 Office outpatient vi sit 25 minutes Terri Powellsop Work Phone: [facility] 600 DO Work Phone: Start: 09-10-2022 Patient encounter procedure Terri Santos Work Phone: [facility] 600 DO Work Phone: Start: 09-10-[address] Terri Santos Facility: Start: 07-02-2022 Rx Renewal Terri Rm p [facility] Work Phone: Start: 06-24-2022 End: 06-24-2022 Patient encounter procedure William BuenoPrashant Jerejasmeet [facility] Start: 05-21-2022 End: 05-21-2022 Patient encounter procedure Catrachito Rubinaung OD Work Phone: Ophthalmology Comment on above: Epiretinal membrane (ERM) of both eyes (Primary Dx); Floppy eyelid syndrome of both eyes; Combined forms of age-related cataract of both eyes; Posterior vitreous detachment of both eyes; Vitreous floaters of both eyes Start: 05-12-2022 End: 05-12-2022 Patient encounter procedure Luiz MORRISON [facility] Start: 05-10-2022 Rx Renewal Terri Rm p [facility] DO Work Phone: Start: 04-30-2022 End: 04-30-2022 Patient encounter procedure Luiz MORRISON [facility] Start: 04-27-2022 End: 04-28-2022 ambulatory Luiz Morrison Facility:[facility] Start: 04-27-2022 End: 04-28-2022 Admission to same day surgery center MD Terri Santos Work Phone: [facility] [place] Start: 04-23-2022 End: 04-23-2022 ambulatory Luiz Morrison Facility:[facility] Start: 04-23-2022 End: 04-23-2022 Patient encounter procedure MD Terri Santos Work Phone: [facility] Start: 04-13-2022 End: 04-13-2022 ambulatory Luiz Morrison Facility:[facility] Start: 04-13-2022 End: 04-13-2022 Patient encounter procedure MD Terri Santos Work Phone: [facility]qo[facility]Ptq[facility]Iv[facility] Start: 04-01-2022 End: 04-01-2022 Lab Drop off Adam Hookerclarissa [facility] Start: 04-01-2022 End: 04-01-2022 Patient encounter procedure Leonid WHITEHEAD [facility] [place] Start: 03-26-2022 End: 04-07-2022 Pre-admission assessment Milo Gonzales [facility] Start: 03-17-2022 End: 03-17-2022 Patient encounter procedure Luiz MORRISON [facility] Start: 03-02-2022 End: 03-02-2022 Patient encounter procedure Luiz MORRISON [facility] Start: 02-22-2022 End: 02-22-2022 ambulatory Burak Rangel Other [facility] Start: 02-22-2022 Office outpatient vi sit 15 minutes Kamal Chapoli [facility] Start: 02-22-2022 End: 02-22-2022 Patient encounter procedure MD Terri Santos Work Phone: [facility] Start: 01-21-2022 End: 01-21-2022 Patient encounter procedure MD Terri Santos Work Phone: [facility] [place] Start: 12-22-2021 End: 12-22-2021 Lab Drop off Luiz MORRISON [facility] Start: 12-22-2021 End: 12-22-2021 Patient encounter procedure Luiz MORRISON [facility] [place] Start: 12-11-2021 End: 02-20-2022 Pre-admission assessment William Brush [facility] Start: 12-11-2021 End: 12-11-2021 Patient encounter procedure William Brush [facility] [place] Start: 12-10-2021 End: 12-10-2021 Patient encounter procedure Belinda GLI [facility] Start: 12-08-2021 End: 12-08-2021 Patient encounter procedure Luiz MORRISON [facility] Start: 12-01-2021 End: 12-01-2021 Patient encounter procedure Luiz MORRISON [facility] Start: 11-19-2021 End: 11-19-2021 Patient encounter procedure Luiz MORRISON [facility] Start: 11-04-2021 End: 11-04-2021 Patient encounter procedure Luiz MORRISON [facility] Start: 08-31-2021 Office outpatient vi sit 25 minutes Terri Santos Work Phone: [facility] 600 DO Work Phone: Start: 06-10-2021 Rx Renewal Terri de la torre Work Phone: [facility] 600 DO Work Phone: Start: 03-10-2021 End: 03-10-2021 Emergency department patient visit Chriss Marie Roberts [facility] Start: 04-11-2018 End: 04-11-2018 Emergency department patient visit Danyell Uzmahortencia Facility:[facility] Procedures Date Procedure Procedure Detail Performing [...] biopsy Luiz MORRISON Start: 12-08-2021 Urodynamic studies Patr shantel MORRISON Start: 10-08-2011 Colonoscopy Catrachito mccullough OD Work Phone: Start: 10-08-2011 Colonoscopy Luiz PATRICK Start: 08-10-2011 Colonoscopy Luiz PATRICK Hemorrhoid operation Luiz MORRISON Hemorrhoidectomy Terri Shah Work Phone: Tonsillectomy Luiz MORRISON Total colonoscopy Terri prieto Work Phone: Plan of Treatment Date Care Activity Detail Author Start: 09-03-2033 DTaP/Tdap/Td Vaccines (2 - Td or Tdap) DTaP/Tdap/Td Vaccines (2 - Td or Tdap) [facility] Start: 06-24-2032 Screening for malignant neoplasm of colon [facility] Start: 09-25-2024 End: 09-25-2024 Patient encounter procedure 09/25/2024 9:00 AM EST Office Visit [facility] [address] [place] [address] Delores Ac MD [address] [facility] [address] [place] [address] [facility] Start: 06-20-2024 ambulatory Ambulatory Facility:[facility] Start: 10-29-2023 Zoster Vaccines (2 of 2) Zoster Vaccines (2 of 2) [facility] Start: 09-30-2023 FUV, Provider: Delores Ac, Status: Pen, Time: 9:00 AM FUV, Provider: Delores Ac, Status: Pen, Time: 9:00 AM [facility] 600 DO Work Phone: Start: 04-08-2023 COVID-19 Vaccine ( season) COVID-19 Vaccine ( season) [facility] Start: 09-28-2022 NURSEVST, Provider: ISHA TRINIDAD EXECUTIVE VICE PRESIDENT BUSINESS DEVELOPMENT 1,[id number], Status: Pen, Time: 11:30 AM NURSEVST, Provider: ISHA TRINIDAD EXECUTIVE VICE PRESIDENT [employer] DEVELOPMENT 1,[id number], Status: Pen, Time: 11:30 AM [facility] 600 DO Work Phone: Start: 08-31-2022 FUV, Provider: Delores Ac, Status: Pen, Time: 8:40 AM FUV, Provider: Delores Ac, Status: Pen, Time: 8:40 AM [facility] 600 DO Work Phone: Start: 08-03-2022 Pneumococcal Vaccine: 65+ Years (2 - PCV) Pneumococcal Vaccine: 65+ Years (2 - PCV) [facility] Start: 04-28-2022 [facility] Work Phone: Start: 04-27-2022 Hospital admission [facility] Work Phone: Start: 04-08-2022 Influenza vaccination INFLUENZA (#1) [facility] Start: 01-21-2022 MR prostate wo/w con MR prostate wo/w con [facility] Start: 10-05-2021 COVID-19 VACCINE (4 - Booster for Moderna series) COVID-19 VACCINE (4 - Booster for Moderna series) [facility] Start: 08-08-2021 ADVANCE DIRECTIVE DISCUSSION ADVANCE DIRECTIVE DISCUSSION [facility] Start: 08-08-2021 DEPRESSION ASSESSMENT DEPRESSION ASSESSMENT [facility] Start: 07-10-2021 STACIA, Provider: Delores Ac, Status: Pen, Time: 10:10 AM STACIA, Provider: Delores Ac, Status: Pen, Time: 10:10 AM [facility] 600 DO Work Phone: Start: 01-01-2021 PNEUMOCOCCAL: 65+ (1 - PCV) PNEUMOCOCCAL: 65+ (1 - PCV) [facility] Start: 10-07-2012 Colonoscopy COLONOSCOPY [facility] Start: 10-07-2012 COLORECTAL CANCER SCREENING COLORECTAL CANCER SCREENING [facility] Start: 01-01-2011 PROSTATE CANCER SCREENING DISCUSSION PROSTATE CANCER SCREENING DISCUSSION [facility] Start: 01-01-2006 SHINGRIX VACCINE (1 of 2) SHINGRIX VACCINE (1 of 2) [facility] Start: 01-01-2001 COLOGUARD (FIT-DNA) COLOGUARD (FIT-DNA) [facility] Start: 01-01-[address] COLONOGRAPHY [facility] Start: 01-01-2001 DIABETES SCREEN DIABETES SCREEN [facility] Start: 01-01-2001 FECAL OCCULT BLOOD FECAL OCCULT BLOOD [facility] Start: 01-01-2001 SIGMOIDOSCOPY SIGMOIDOSCOPY [facility] Start: 01-01-1991 LIPID SCREEN LIPID SCREEN [facility] Start: 01-01-1975 Urine microalbumin profile DTAP,TDAP,TD (1 - Tdap) [facility] Start: 01-01-1974 Diabetes mellitus screening Diabetes Screening [facility] Start: 01-01-1974 HEPATITIS C SCREENING HEPATITIS C SCREENING [facility] Start: 01-01-1974 Hepatitis C screening Hepatitis C Screening [facility] Start: 1956 Lipid panel Lipid Panel [facility] Start: 1956 Screening for malignant neoplasm of colon [facility] Start: 1955 Yearly Adult Physical Yearly Adult Physical [facility] Patient referral [facility] Work Phone: [facility] Immunizations Immunization Date Immunization Notes Care Provider Vu yañez 05-19-2023 influenza virus vacc ine, unspecified formulation Luiz MORRISON [facility] 05-27-2022 Fluzone High-Dose Quadrivalent 0.7 ML Intramuscular Suspension Prefilled Syringe Terri Allsoramona Work Phone: [facility] 600 DO Work Phone: 05-27-2022 influenza virus vacc ine, unspecified formulation Luiz MORRISON [facility] 08-10-2021 Moderna COVID-19 Vac cine 100 MCG/0.5ML Intramuscular Suspension Terri Allsop Work Phone: [facility] 08-08-2021 SARS-CoV-2 (COVID-19 ) [id number] vaccine Luiz MORRISON [facility] Comment on above: Result Comment: [facility] 08-03-2021 Fluzone High-Dose Quadrivalent 0.7 ML Intramuscular Suspension Prefilled Syringe Terri Allsop Work Phone: [facility] 600 DO Work Phone: 08-03-2021 influenza virus vacc ine, unspecified formulation Luiz NetScaler [facility] 08-03-2021 pneumococcal polysaccharide vaccine, 23 valent Terri Allsop Work Phone: [facility] 600 DO Work Phone: 2021 Moderna COVID-19 Vac cine 100 MCG/0.5ML Intramuscular Suspension Terri Allsop Work Phone: [facility] 600 DO Work Phone: 12-05-2020 Moderna COVID-19 Vac cine 100 MCG/0.5ML Intramuscular Suspension Terri Allsop Work Phone: [facility] 600 DO Work Phone: 06-26-2020 influenza virus vacc ine, unspecified formulation [facility] 06-26-2020 influenza, injectabl e, quadrivalent, preservative free Terri Allsop Work Phone: [facility] 600 DO Work Phone: 06-16-2019 influenza virus vacc ine, unspecified formulation Luiz [employer] [facility] 06-16-2019 seasonal influenza, intradermal, preservative free Terri Allsop Work Phone: [facility] 600 DO Work Phone: 06-08-2019 influenza virus vacc ine, unspecified formulation [facility] 06-08-2019 influenza, seasonal, injectable Terri All[facility]op [facility] DO Work Phone: 06-07-2019 influenza virus vacc ine, unspecified formulation Luiz MORRISON [facility] 05-08-2018 influenza virus vacc ine, unspecified formulation Terri Allsop Work Phone: [facility] DO Work Phone: 06-08-2016 influenza virus vacc ine, unspecified formulation Terri Allsop Work Phone: [facility] DO Work Phone: 06-08-2016 pneumococcal polysaccharide vaccine, 23 valent Terri Allsop Work Phone: [facility] 600 DO Work Phone: 05-16-2015 influenza virus vacc ine, unspecified formulation Terri Allsop Work Phone: [facility] 600 DO Work Phone: 06-22-2013 influenza virus vacc ine, unspecified formulation Terri Allsop Work Phone: [facility] DO Work Phone: 06-21-2013 pneumococcal polysaccharide vaccine, 23 valent Terri Allsop Work Phone: [facility] DO Work Phone: 05-01-2012 influenza virus vacc ine, whole virus Terri Allsop Work Phone: [facility] DO Work Phone: 05-01-2012 influenza, whole Luiz QUIROZ [facility] influenza virus vacc ine, unspecified formulation Terri Santos Work Phone: [facility] 600 DO Work Phone: Comment on above: 2011 2006 Payers Date Payer Category Payer Self-pay [id number] 2018 Unknown 2014 Unknown [id number] 1956 Unknown [id number] 2.16. [id number] 1956 Unknown [id number] 2.16. 840.1.124086.3.579.2.356 1956 Unknown [id number] 2.16.8 40.1.006003.3.579.2.727 1956 Unknown [id number] 2.16.8 40.1.342550.3.579.2.727 1956 Unknown [id number] 2.16.8 40.1.266899.3.579.2.727 1956 Unknown [id number] 2.16.8 40.1.792798.3.579.2.727 1956 Unknown [id number] 2.16.8 40.1.302995.3.579.2.727 1956 Unknown [id number] 2.16.8 40.1.525018.3.579.2.727 1956 Unknown [id number] 2.16.84 0.1.679394.3.579.2.1259 1956 Unknown [id number] 2.16.84 0.1.003223.3.579.2.1259 1956 Unknown [id number] 2.16.84 0.1.914394.3.579.2.1259 1956 Unknown [id number] 2.16.84 0.1.694411.3.579.2.1258 1956 Unknown [id number] 2.16.84 0.1.638100.3.579.2.1258 1956 Unknown [id number] 2.16.84 0.1.703672.3.579.2.1258 1956 Unknown [id number] 2.16.84 0.1.276254.3.579.2.1258 1956 Unknown [id number] 2.16.84 0.1.518150.3.579.2.1258 1956 Unknown [id number] 2.16.8 40.1.260331.3.579.2.1244 Unknown [id number] 2.16.8 40.1.805596.3.579.2.531 Unknown [id number] 2.16.8 40.1.087588.3.579.2.531 Unknown [id number] 2.16.8 40.1.804585.3.579.2.531 Unknown [id number] 2.16.8 40.1.376689.3.579.2.531 Social History Date Type Detail Facility [facility] Tobacco smoking consumption unknown [facility] Start: 09-30-2023 Caffeine use Caffeine use [facility] [employer] DO Work Phone: Start: 11-04-2021 End: 04-27-2022 Tobacco smoking status Never smoked tobacco (finding) [facility] Tobacco smoking status Ex-smoker (finding ) [facility] Tobacco smoking status Never [facility] Start: 09-30-2023 Sex Assigned At Male [facility] Start: 1955 Sex Assigned At Male F [facility] Start: 04-12-2018 End: 09-30-2023 Tobacco use and exposure Smokeless tobacco non-user [facility] Start: 05-21-2022 End: 09-30-2023 Alcohol intake Lifetime non-drinker (finding) [facility] Start: 08-27-2019 History SDOH Alcohol Frequency 1 [facility] Start: 1955 Sex Assigned At Not on file [facility] Start: 05-11-2022 End: 09-30-2023 Exposure to SARS-CoV-2 (event) Not sure [facility] Goals Date Patient Goal Desired Activity /State Functional Status Date Assessment Result Facility 06-15-2023 Functional Status N/A [facility] 11-03-2022 Functional Status N/A [facility] 06-24-2022 Functional Status N/A [facility] 05-12-2022 Functional Status N/A [facility] 04-28-2022 Functional status Patient at Baseline [facility] Work Phone: 04-01-2022 Functional Status N/A [facility] [place] 03-17-2022 Functional Status N/A [facility] Mental Status Date Assessment Result Facility 04-28-2022 Cognitive function Cognitive Sta tus Patient at Baseline [facility] Work Phone: Clinical Notes 08-15-2020 to 09-30-2023 [...] has been very compliant Delores Ac MD, [facility] Review of Systems All other systems reviewed [...] Scribe Attestation By signing my name below, I jbrleticlJulieta saenz attest that this documentation has been prepared [...] discussion and plan. documented in this encounter [facility] Work Phone: 09-30-2023 Instructions Kitty Estes [...] Increase physical activity. documented in this encounter [facility] Work Phone: 06-15-2023 Hospital Discharge instructions [...] urethra. Follow these instructions at home: Take vowu-ejx-zdkhrap and prescription medicines only as told by [...] provider. Document Revised: 02/10/2022 Document Reviewed: 02/10/2022 [employer] Patient Education 2022 [employer]. Follow Up Care 11/03/2022 16:39:32 With:TAMIKO SAEZ, Luiz Jackson, URL Address: [facility] [address], [place] [address]- When: Unknown [facility] 05-27-2023 Note HNO ID: [id number] Author: Josselin Decker MD Service: ? Author [...] technical staff. I have seen and examined Phumerary Lopez. I have discussed the examination findings, diagnosis, and treatment options with Phu Lopez and/or his family. I have also reviewed and agree with the assessment and plan as stated above and agree with all its relevant components. I gave the patient the opportunity to ask questions about the findings, diagnosis, and treatment options. [facility] 02-21-2023 Evaluation note Encounter Date Diagnosis Assessment Notes Feb, Obstructive sleep apnea (ICD-10 - G47.33) Patient was encouraged to continue his CPAP regularly, work on losing weight, monitor his blood pressure regularly and keep a record of his readings to review with his epic professional, asked him to report any difficulties or issues with his treatment, DOS otherwise we will see him for follow-up in 1 year Feb, Hypertension, unspecified type (ICD-10 - I10) [facility] 03-29-2023 Hospital Discharge instructions Patient Education [...] urethra. Follow these instructions at home: Take vlum-nfs-aynrfew and prescription medicines only as told by [...] 07/25/2006 Document Revised: 06/19/2019 Document Reviewed: 08/29/2017 [employer] Patient Education 2020 [employer]. Follow Up Care 07/29/2022 09:30:30 With:TAMIKO SAEZ, ELVIRA Blanco Address: [facility] [address] , [place] [address]- When: Unknown [facility] 11-17-2022 Hospital Discharge instructions Patient Education 06/24/2022 [...] a slower pace than normal. ?Eat soft, ccaa-gs-ggytmv foods. Take zpqb-kyb-xcwrbfx or prescription medicines only as told by [...] 03/08/2005 Document Revised: 05/17/2018 Document Reviewed: 10/05/2016 [employer] Patient Education 2020 [employer]. Follow Up Care 02/15/2022 10:08:03 With:William Brush Address:Unknown When: Unknown Comments:will call with results [facility]10-14-2022 Instructions* Patient Instructions* Catrachito Barton, OD - [...] delay. Recommended yearly [facility]. [facility] History of Present illness Narrative* Catrachito Barton, [...] and examined this patient. [facility] Hospital Discharge instructions Patient Education 05/12/2022 08:12:30 [...] Follow these instructions at home: Medicines Take csdx-wqh-dwwrwcg and prescription medicines only as told by [...] prevent or treat constipation, such as: ?Take ryjq-oaz-tdcmoce or prescription medicines. ?Eat foods that are [...] 07/25/2006 Document Revised: 11/14/2019 Document Reviewed: 04/25/2019 [employer] Patient Education 2020 [employer]. Follow Up Care 04/30/2022 08:49:28 With:TAMIKO SAEZ, Luiz Jackson, URL Address: [facility] [address] , [place] [address]- [phone] When:08/12/2022 [facility] 08-10-2022 Hospital Discharge instructions Patient Education 03/17/2022 [...] including vitamins, herbs, eye drops, creams, and mihi-xig-lxeezuw medicines. Any problems you or family members [...] provider tells you to take them. Taking roje-nam-maeqqyh medicines, vitamins, herbs, and supplements. Eating and [...] 07/25/2006 Document Revised: 11/14/2019 Document Reviewed: 04/25/2019 [employer] Patient Education 2019 [employer]. Follow Up Care 02/12/2022 10:45:59 With:TAMIKO SAEZ, ELVIRA Blanco Address: [facility] [address] , [place] [address]- [phone] When: Unknown Comments:schedule TURP [facility] 07-26-2022 Hospital Discharge instructions Patient Education 03/02/2022 [...] for your post-operative appointment in 1-2 weeks [phone] or [phone] Follow Up Care 02/12/2022 10:36:38 With:Luiz MORRISON Address: [facility] [address] [place] [address]- Business (1) When: Unknown Comments:Appointment has already been scheduled [facility]07-18-2022 Evaluation note* Encounter Date Diagnosis Assessment Notes Treatment Notes Treatment Clinical Notes Feb, Obstructive sleep apnea (ICD-10 - G47.33) Patient was advised to continue current treatment with CPAP on a regular basis, also to continue working aggressively on losing weight and improving his sleep hygiene, will send a new prescription for supplies to his [employer] company I will see him for follow-up in 1 year Feb, Periodic limb movement disorder (ICD-10 - G47.61) Feb, Morbid obesity (ICD-10 - E66.01) [facility] 05-16-2022 Hospital Discharge instructions Patient Education [...] Follow these instructions at home: Medicines Take wykf-qay-ovmvltu and prescription medicines only as told by [...] or the blood stops without treatment. Take xryx-zzy-djobagg and prescription medicines only as told by your health care provider. Drink enough fluid to keep your urine clear or pale yellow. This information is not intended to replace advice given to you by your health care provider. Make sure you discuss any questions you have with your health care provider. Document Released: 07/25/2006 Document Revised: 12/19/2019 Document Reviewed: 08/27/2017 [employer] Patient Education 2019 [employer]. Follow Up Care 12/01/2021 08:55:58 With:TAMIKO SAEZ, Luiz Jackson, URL Address: [facility] [address] [place] [address]- When: Unknown Comments:Huyen WILKES. [facility] 05-06-2022 Hospital Discharge instructions Patient Education 12/11/2021 [...] ?Hypothyroidism. ?Polycystic ovarian syndrome (PCOS). ?Binge-eating disorder. ?Yolis syndrome. Taking certain medicines, such as steroids, [...] food choices, such as grocery stores and farmers' markets. What are the signs or symptoms? The [...] and how much exercise you get. Take bodg-xob-zyokhaw and prescription medicines only as told by [...] 09/01/2005 Document Revised: 03/29/2019 Document Reviewed: 03/29/2019 [employer] Patient Education 2020 [employer]. [facility] [place] 04-26-2022 Evaluation + Plan noteExtracted from: Title:Urology [...] list: All Problems asthma / SNOMED CT 362456547 / Confirmed Hypocalcemia / SNOMED CT 4744861 / Confirmed Hypokalemia / SNOMED CT 12616275 / Confirmed Obesity / SNOMED CT 2058115915 / Confirmed Chronic heart failure / SNOMED CT 07321642 / Confirmed Hyperlipidemia / SNOMED CT 68572762 / Confirmed Hyperglycemia / SNOMED CT 732347120 / Confirmed Hypertension / SNOMED CT 83521639 / Confirmed Male hypogonadism / SNOMED CT 36859637 / Confirmed Onychomycosis / SNOMED CT 3680640944 / Confirmed Hypothyroid / SNOMED CT 65052217 / Confirmed Depression / SNOMED CT 65522061 / Confirmed Heart disease / SNOMED CT 52436694 / Confirmed Histories Past Medical History: Active asthma (256810716): Onset in 1970 at 15 years. Resolved Depression (300.4): Onset on 12/10/2009 at 54 years. Resolved. Comments: 12/10/2009 EDT 10:06 EDT - Family History: Cardiac arrhythmia Father () Malignant lymphoma Mother () Comments: 12/07/2009 0:16 EDT - Merlyn Sampson RN parathyroid cancer Procedure history: Colonoscopy ([id number]) on 10/08/2011 at 56 Years. Colonoscopy (459736815) on 08/10/2011 at 56 Years. Tonsillectomy (931893375). Social History Social & Psychosocial Habits Alcohol [...] Appointments Appointment Date:12/03/2021 08:15:00 AM Scheduled Provider: Location:[facility] Appointment Type:Urology CALL PAT Appointment Date:12/08/2021 08:00:00 AM Scheduled Provider: Location:[facility] Appointment Type:Urology FT Appointment Date:12/11/2021 08:20:00 AM Scheduled Provider:William Brush MD Location:[facility] Appointment Type:[place] [address] Appointment Date:12/22/2021 08:00:00 AM Scheduled Provider:Luiz MORRISON MD Location:[facility] Appointment Type:URO Office Visit Diagnostic Tests Pending * UroVysion Fish and Urine Cyto ([facility]) 12/01/21 [facility]04-26-2022 Hospital Discharge instructions Patient Education 12/01/2021 08:51:54 [...] With:Luiz MORRISON Address: [facility] [address] [place] [address]- Business (1) When: Unknown Comments:Office will call to schedule follow up [facility]03-30-2022 Evaluation + Plan note Future Scheduled Tests Radiology* CT Urogram 11/04/21 [facility] [id number] Hospital Discharge instructions Patient Education 11/04/2021 11:30:36 [...] Follow these instructions at home: Medicines Take vreu-ckg-yrcrnje and prescription medicines only as told by [...] or the blood stops without treatment. Take eczd-kus-wyyfqri and prescription medicines only as told by your health care provider. Drink enough fluid to keep your urine clear or pale yellow. This information is not intended to replace advice given to you by your health care provider. Make sure you discuss any questions you have with your health care provider. Document Released: 07/25/2006 Document Revised: 12/19/2019 Document Reviewed: 08/27/2017 [employer] Patient Education 2019 [employer] Inc[employer] Follow Up Care 10/06/2021 15:23:45 With:TAMIKO SAEZ, Luiz Jackson, URL Address: [facility] [address] , [place] [address]- [phone] When: Unknown [facility] 01-08-2021 History of Past illness Narrative* Problem Noted Date Resolved Date Epiretinal membrane (ERM) of right eye 09/04/2021 documented as of this encounter (statuses as of 05/21/2022) [facility] Future App[facility]ments Appointment Date:12/01/2021 08:00:00 AM Scheduled Provider: Location:[facility] Appointment Type:Urology FT Appointment Date:12/11/2021 08:20:00 AM Scheduled Provider:William Brush MD Location:[facility] [address]ment [address] note Future Appointments Appointment Date:12/11/2021 08:20:00 AM Scheduled Provider:William Brush MD Location:[facility] Appointment Type:[place] [address] Appointment Date:12/22/2021 08:00:00 AM Scheduled Provider:Luiz MORRISON MD Location:[facility] Appointment [facility]URO [facility] App[facility]ments Appointment Date:12/11/2021 08:20:00 AM Scheduled Provider:William Brush MD Location:[facility] Appointment Type:[place] [address] Appointment Date:12/22/2021 08:00:00 AM Scheduled Provider:Luiz MORRISON MD Location:[facility] Appointment Type:URO Office Visit Diagnostic Tests Pending * Testosterone F&T [facility]10[facility] Future Appointments Appointment Date:12/22/2021 08:00:00 AM Scheduled Provider:Luiz MORRISON MD [facility] Type:[facility]O Office Visit Appointment Date:02/19/2022 12:30:00 PM Scheduled Provider: Location:[facility] Appointment Type:Surgery FT [facility] [place] Evaluation + Plan note Future Appointments Appointment Date:02/19/2022 12:30:00 PM Scheduled Provider: [facility] Appointment Type:Surgery FT Diagnostic Tests Pending * PSA Total 12/22/21 [facility] Evaluation + Plan note Future Appointments Appointment Date:02/19/2022 12:30:00 PM Scheduled Provider: Location:[facility] App[facility]ment [facility] Future Appointments Appointment Date:03/02/2022 09:45:00 AM Scheduled Provider: Location:[facility] Appointment Type:Urology FT Appointment Date:03/17/2022 02:00:00 PM Scheduled Provider:Luiz MORRISON MD Location:[facility] Appointment Type:URO Office Visit Appointment Date:06/25/2022 12:30:00 PM Scheduled Provider: Location:[facility] App[facility]ment [facility] Future Appointments Appointment Date:03/17/2022 02:00:00 PM Scheduled Provider:Luiz MORRISON MD Location:[facility] Appointment Type:URO Office Visit Appointment Date:06/25/2022 12:30:00 PM Scheduled Provider: Location:[facility] Appointment Type:Surgery FT Diagnostic Tests Pending * Prostate Histology ([facility]) 03[facility]02/22 [facility] Future Appointments Appointment Date:06/25/2022 12:30:00 PM Scheduled Provider: Location:[facility] Appointment Type:Surgery FT [facility] Evaluation + Plan note Future Appointments Appointment Date:04/06/2022 02:30:00 PM Scheduled Provider:Milo Gonzales MD Location:[facility] Appointment Type:Pain Management - New (FT) Appointment Date:06/25/2022 12:30:00 PM Scheduled Provider: Location:[facility] Appointment Type:Surgery FT [facility] [place] Evaluation + Plan note Future Appointments Appointment Date:05/12/2022 08:00:00 AM Scheduled Provider:Luiz MORRISON MD Location:[facility] Appointment Type:URO Office Visit Appointment Date:06/25/2022 12:30:00 PM Scheduled Provider: Location:[facility] Appointment Type:Surgery FT [facility] Evaluation + Plan note Future Appointments Appointment Date:06/24/2022 12:30:00 PM Scheduled Provider: Location:[facility] Appointment Type:Surgery FT Appointment Date:08/11/2022 10:30:00 AM Scheduled Provider:Luiz MORRISON MD Location:[facility] Appointment Type:URO Office Visit [facility] Evaluation + Plan note Future Appointments Appointment Date:08/11/2022 10:30:00 AM Scheduled Provider:Luiz MORRISON MD Location:[facility] App[facility]ment [facility]O [facility] Future Appointments Appointment Date:11/03/2022 03:00:00 PM Scheduled Provider:Luiz MORRISON MD Location:[facility] Appointment Type[facility]URO [facility] Future Appointments Appointment Date:06/15/2023 01:15:00 PM Scheduled Provider:Luiz MORRISON MD Location:[facility] Appointment Type:URO Office Visit Diagnostic Tests Pending * PSA Total 11/03/22 [facility] Evaluation + Plan note Future Appointments Appointment Date:06/15/2023 01:15:00 PM Scheduled Provider:Luiz MORRISON MD Location:[facility] Appointment Type:URO Office Visit Diagnostic Tests Pending * PSA Total 04/30/23 [facility] Future Appointments Appointment Date:06/20/2024 01:00:00 PM Scheduled Provider:Luiz MORRISON MD Location:[facility] Appointment Type:URO Office Visit Diagnostic Tests Pending * PSA Total 06/15/23 [facility] Evaluation + Plan note Future Appointments Appointment Date:06/20/2024 01:00:00 PM Scheduled Provider:Luiz MORRISON MD [facility] note[facility] assessment information available [facility] Work Phone: Evaluation note* Diagnosis Epiretinal membrane (ERM) of both eyes- Primary Floppy eyelid syndrome of both eyes Combined forms of age-related cataract of both eyes Other and combined forms of senile cataract Posterior vitreous detachment of both eyes Vitreous degeneration Vitreous floaters of both eyes documented in this encounter [facility] Diagnosis Essential hypertension Unspecified essential hypertension Non-ischemic cardiomyopathy (CMS/HCC) Other primary cardiomyopathies Hyperlipidemia, unspecified hyperlipidemia type Obstructive sleep apnea, adult Morbid obesity with BMI of 40.0-44.9, adult (CMS/HCC) documented in this encounter [facility] Work Phone: Evaluation note* Diagnosis Onset Date Resolution Status Hypertension acute Sleep apnea with use of cont inuous positive airway pressure (CPAP) acute Hypertension acute Sleep apnea with use of cont inuous positive airway pressure (CPAP) acute [facility] Work Phone: History general Narrative - Reported* Type Description Date Medical History CARDIOMYOPATHY Medical History HYPERTENSION Medical History HYPOKALEMIA Medical History HYPERLIPIDEMIA Medical History FATTY LIVER Medical History ASTHMA Medical History SLEEP APNEA Medical History DEPRESSION Medical History RESTLESS LEG SYNDROME Surgical History HEMMRHOIDECTOMY 1990 Surgical History ANGIOGRAM Drip In Other Hospital course Narrative No data available for this section [facility] Hospital Discharge instructions No data available for this section [facility] No data available for this section [facility] (n[facility]ative)* Consultation (Routine) - Authorized Specialty Diagnoses / Procedures Referred By Supa t Referred To Contact Cardiology Diagnoses Essential hypertension Non-ischemic cardiomyopathy (CMS/HCC) Procedures Follow Up In Cardiology Delores Ac MD [address] [place] [address] 2, [address] [address] Delores Ac MD [address] [facility] 2, [address] [address] Referral ID Status Reason Start Date Expiration Date V isits Requested Visits Authorized [id number] Authorized 09/30/2023 09/29/2024 1 1 [facility] Work Phone: Summary Purpose Family History Unknown Family Member Name Dates Details Family [...] Condition Age at Onset Recorded Date/T annette mother Malignant neoplasm of parathyroid gland U nknown father Coronary artery disease Unknown brother Coronary artery disease Unknown father Heart disease Unknown Unknown mother Malignant neoplasm Unknown Advance Directives Advance Directive Response Recorded Date/ Time Advance [...] on CPAP machine * Delores Ac MD, [facility] PHU LOPEZ is being seen for an annual follow-up of.* PHU LOPEZ is being seen for an annual follow-up of. * Patient is in the office for follow-up for the problems noted below. 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 He reports no symptoms of dyspnea or [...] been very compliant * Delores Ac MD, [facility] * PHU LOPEZ is being seen for [...] w/ Onstruction BPH w/ Onstruction Chief Complaint joelle, 1 year Chief Complaint JOELLE/ ANNUAL joelle/ Reason for Visit Hypertension Sleep apnea with use of continuous positive airway pressure (CPAP) Hypertension Sleep apnea with use of continuous positive airway pressure (CPAP) Medications Administered Section Active Administered Medications - [...] section and content) DATE CREATED AUTHOR 05/19/2018 [facility] DATE CREATED AUTHOR AUTHOR'S ORGANIZ ATION 03/14/2021 [facility] DATE CREATED AUTHOR AUTHOR'S ORGANIZ ATION 09/29/2022 [facility] DATE CREATED AUTHOR AUTHOR'S ORGANIZ ATION 09/29/2022 [facility] DATE CREATED AUTHOR AUTHOR'S ORGANIZ ATION 02/24/2023 [facility] DATE CREATED AUTHOR AUTHOR'S ORGANIZ ATION 05/29/2023 [facility] DATE CREATED AUTHOR AUTHOR'S ORGANIZ ATION 11/30/2023 [facility] DATE CREATED AUTHOR AUTHOR'S ORGANIZ ATION 04/15/2024 [facility] EPIC DATE CREATED AUTHOR AUTHOR'S ORGANIZ ATION 04/17/2024 [facility] <item> Privacy Markings (unrecogniz ed section [...] Active Burak Rangel MD Attending Provider Active Fraud Examiner Relationship Specialty Start Date End Date Terri Santos DO [address] [place] [address] PCP - General Family Medicine 04/11/18 Fraud Examiner Relationship Specialty Start Date End Date Terri Santos DO [address] [place] [address] PCP - General 09/11/20 Team Status: Inactive Member Role Status Dates Terri Santos MD Primary Care Provider Active Start: March 12, 2024 End: March 12, 2024 Albania Sutton NP Attending Provider Active Start: March 12, 2024 End: March 12, 2024 Team Status: Inactive Member Role Status Dates Terri Santos MD Primary Care Provider Active Start: May 07, 2024 End: May 07, 2024 Albania Sutton NP Attending Provider Active Start: May 07, 2024 End: May 07, 2024 Goals (unrecognized section and content) Goals may [...] or prosecute any alcohol or drug abuse patient.[facility] FOR RECORDS PERTAINING TO PATIENTS WHO ARE [...] BE BASED ON THE PRIMARY CLINICAL RECORDS. [employer] [facility]. provides no warranty or guarantee of the accuracy or completeness of information in this document.
[2024-05-11 08:08] VITALS: BMI 38.6
--- NOTE | 2024-05-11 08:08 | V.VEINS.HP ---
Vital Signs 05/11/24 08:08 Height 5 ft 10 in Weight 122 kg BMI 38.6 Varicose Veins Patient in today for follow up ultrasound of right lower extremity following EVLT of right GSV completed on 05/04/24. Rahul Smith MD personally performed the services described in this documentation, as scribed by Jane Farris RDMS in my presence and it is both accurate and complete. Jane Smith RDMS, am scribing for, and in the presence of, Dr. Della Pedro and in the presence of the patient. thigh: bilateral, knee: bilateral, calf: bilateral, ankle: bilateral and delaney: bilateral aching and dull 3 2 years Worsened in recent months: Yes walking elevating extremities and compression stockings Reports heaviness, restless legs, limb pain, edema and leg edema History of lower extremity trauma: No Superficial thrombophlebitis: No Family history of varicose veins: no Has patient had previous lower extremity venous surgery: No Patient has previously received the following treatment(s) for lower extremity varicose veins: Reports none Does patient have a history of : not applicable Does patient intend to have future pregnancies: not applicable Has patient had lower extremity venous scan with relux testing: Yes Support hose used: Yes Problems walking or doing physical activity: Yes How does it affect you: unable to walk long distances Do you walk much: No Do you stand much: Yes Medication compliance: good Review of Systems ROS Narrative Rahul Smith MD personally performed the services described in this documentation, as scribed by Jane Farris RDMS in my presence and it is both accurate and complete. Jane Smith RDMS, am scribing for, and in the presence of, Dr. Della Pedro and in the presence of the patient. Status of ROS 10 or more systems reviewed and unremarkable except as noted in history and below Cardiovascular Reports: edema and swelling of feet/ankles Musculoskeletal Reports: extremity pain, extremity swelling, joint pain, joint swelling and muscle cramps Integumentary/Breast Reports: rash, itching and redness PFSH PFS Medical History (Updated 05/11/24 @ 08:10 by Jane Farris) Phlebitis and thrombophlebitis of superficial vessels of right lower extremity ?I80.01 - Phlebitis and thrombophlebitis of superficial vessels of right lower extremity (ICD-10) Hemorrhoids, internal ?K64.8 - Other hemorrhoids (ICD-10) Pain due to varicose veins of both lower extremities ?I83.813 - Varicose veins of bilateral lower extremities with pain (ICD-10) Tinea pedis ?B35.3 - Tinea pedis (ICD-10) Sleep apnea ?G47.30 - Sleep apnea, unspecified (ICD-10) Restless leg ?G25.81 - Restless legs syndrome (ICD-10) Onychomycosis ?B35.1 - Tinea unguium (ICD-10) Obesity ?E66.9 - Obesity, unspecified (ICD-10) Left ventricular failure ?I50.1 - Left ventricular failure, unspecified (ICD-10) Hypokalemia ?E87.6 - Hypokalemia (ICD-10) Hyperglycemia ?R73.9 - Hyperglycemia, unspecified (ICD-10) Hyperlipemia ?E78.5 - Hyperlipidemia, unspecified (ICD-10) Accelerated essential hypertension ?I10 - Essential (primary) hypertension (ICD-10) Elevated PSA ?R97.20 - Elevated prostate specific antigen [PSA] (ICD-10) Cardiomyopathy ?I42.9 - Cardiomyopathy, unspecified (ICD-10) Anxiety ?F41.9 - Anxiety disorder, unspecified (ICD-10) Surgical History (Updated 05/04/24 @ 08:41 by Gerald Lopez) Status post laser ablation of incompetent vein ?Z98.890 - Other specified postprocedural states (ICD-10) S/P TURP ?Z90.79 - Acquired absence of other genital organ(s) (ICD-10) Family History (Updated 04/06/24 @ 10:04 by Destini Carlin, SHUKRI) Other Family history of CHF (congestive heart failure) Family history of cancer Family history of hypertension Family history of myocardial infarction Social History (Updated 04/06/24 @ 10:05 by Destini Carlin, SHUKRI) Within the past year, how often did you have a drink containing alcohol: never Score interpretation: A score less than 4 is consistent with normal alcohol consumption. Smoking status: Never smoker Non-prescribed substance use: denies use Meds Home Medications and Allergies Home Medications ?Medication ?Instructions ?Recorded ?Confirmed ?Type amiloride 5 mg tablet 5 mg PO DAILY 04/06/24 04/06/24 History amlodipine 10 mg tablet 10 mg PO DAILY 04/06/24 04/06/24 History aspirin 325 mg tablet 325 mg PO DAILY 04/06/24 04/06/24 History carvedilol 25 mg tablet (Coreg) 25 mg PO BID 04/06/24 04/06/24 History doxazosin 4 mg tablet (Cardura) 4 mg PO QPM 04/06/24 04/06/24 History finasteride 5 mg tablet 5 mg PO DAILY 04/06/24 04/06/24 History hydralazine .Route DAILY 04/06/24 History hydrochlorothiazide 25 mg tablet 25 mg PO DAILY 04/06/24 04/06/24 History losartan 100 mg tablet 100 mg PO DAILY 04/06/24 04/06/24 History lovastatin 30 mg PO QAM 04/06/24 04/06/24 History montelukast 10 mg tablet 10 mg PO DAILY 04/06/24 04/06/24 History niacin 500 mg capsule,extended 500 mg PO DAILY 04/06/24 04/06/24 History release paroxetine HCl 20 mg tablet 20 mg PO DAILY 04/06/24 04/06/24 History potassium chloride 10 mEq 10 meq PO DAILY 04/06/24 04/06/24 History tablet,extended release (Klor-Con) apixaban 5 mg tablet (Eliquis) 5 mg PO BID 05/04/24 05/04/24 History Allergies Allergy/AdvReac Type Severity Reaction Status Date / Time clarithromycin Allergy Unknown Unknown Verified 04/06/24 09:39 Exam Narrative Exam Narrative: IRahul MD personally performed the services described in this documentation, as scribed by Jane Farris RDMS in my presence and it is both accurate and complete. I, Jane Farris RDMS, am scribing for, and in the presence of, Dr. Della Pedro and in the presence of the patient. Constitutional Vital Signs, click to edit/add: Last Vital Signs Pulse 70 04/20/24 09:25 Resp 18 04/20/24 09:25 BP 120/64 04/20/24 09:25 Pulse Ox 96 04/20/24 09:25 Documenting provider has reviewed patient's vital signs: yes Common normals: oriented x3 Nutritional appearance: overweight Lymph Lymphatic: no lymphedema noted Cardio Peripheral pulses: posterior tibial pulses present and dorsalis pedis pulses present Extremity General: calf tenderness, edema and other findings Right lower extremity: lower leg Right lower leg: inspection and palpation Left lower extremity: lower leg Left lower leg: inspection and palpation Neuro Common normals: oriented x3 Results Imaging Venous US: Radiologist's impression: Heat induced thrombus in right GSV 2.6 cm from SFJ and extends to distal lower leg. Rahul Smith MD personally performed the services described in this documentation, as scribed by Jane Farris RDMS in my presence and it is both accurate and complete. Jane Smith RDMS, am scribing for, and in the presence of, Dr. Della Pedro and in the presence of the patient. Assessment and Plan Assessment and Plan (1) Phlebitis and thrombophlebitis of superficial vessels of right lower extremity: Plan Plan is for patient to return for EVLT of left GSV on 05/21/24. Rahul Smith MD personally performed the services described in this documentation, as scribed by Jane Farris RDMS in my presence and it is both accurate and complete. Jane Smith RDMS, am scribing for, and in the presence of, Dr. Della Pedro and in the presence of the patient.
--- NOTE | 2024-05-11 08:11 | W.VEIN ---
Discharge Plan Discharge Disposition: Home, Self-Care Outpatient Diagnostics: VC Endovenous Ablation 1VeinLT (Routine) Timeframe: 1 Month Facility: [facility] - Location: [facility] Ordered By: Rahul Pedro Follow Up Appointments: 05/21/24 Plan of Treatment: EVLT of left GSV EVLT Tumescent Anesthesia: 500 mL 0.9% NS with 20 mL 1% Lidocaine and 10 mL 8.4% NAHCO3 Buffered Local Anesthesia: 10 mL of 1% Lidocaine Buffered Print Language: Belizean Discharge Date/Time: 05/11/24 08:12
== END 2024-05-11 08:12 | disposition home or self-care (01) ==
PROVIDERS: PCP Radiology Diagnostic Radiology; Visit Provider Radiology Diagnostic Radiology
DX: I80.01 Phlebitis and thrombophlebitis of superficial vessels of right lower extremity (principal)
CPT/HCPCS: 93971; G0463

== ENCOUNTER 2024-05-25 07:38 | Outpatient (OUT) | payer OTHER, SELFPAY ==
--- NOTE | 2024-05-24 09:31 | V.VEINS.HP ---
Vital Signs 05/25/24 08:51 BP 160/80 H BP Location Left Brachial BP Position Sitting BP Cuff Size Adult BP Source Manual Cuff Respiration 16 Pulse 70 Pulse Source Monitor Pulse Oximetry (%) 98 Oxygen Delivery Method Room Air Comment The patient's blood pressure is elevated. Varicose Veins Patient in today for EVLT of left GSV Guillermo Smith MD personally performed the services described in this documentation, as scribed by Gerald Lopez RN in my presence and it is both accurate and complete. IGerald RN, am scribing for, and in the presence of, Dr. Guillermo Gurrola and in the presence of the patient. thigh: bilateral, knee: bilateral, calf: bilateral, ankle: bilateral and delaney: bilateral aching and dull 3 2 years Worsened in recent months: Yes walking elevating extremities and compression stockings Reports heaviness, restless legs, limb pain, edema and leg edema History of lower extremity trauma: No Superficial thrombophlebitis: No Family history of varicose veins: no Has patient had previous lower extremity venous surgery: No Patient has previously received the following treatment(s) for lower extremity varicose veins: Reports none Does patient have a history of : not applicable Does patient intend to have future pregnancies: not applicable Has patient had lower extremity venous scan with relux testing: Yes Support hose used: Yes Problems walking or doing physical activity: Yes How does it affect you: unable to walk long distances Do you walk much: No Do you stand much: Yes Medication compliance: good Review of Systems ROS Narrative Guillermo Smith MD personally performed the services described in this documentation, as scribed by Gerald Lopez RN in my presence and it is both accurate and complete. Gerald Smith RN, am scribing for, and in the presence of, Dr. Guillermo Gurrola and in the presence of the patient. Status of ROS 10 or more systems reviewed and unremarkable except as noted in history and below Cardiovascular Reports: edema and swelling of feet/ankles Musculoskeletal Reports: extremity pain, extremity swelling, joint pain, joint swelling and muscle cramps Integumentary/Breast Reports: rash, itching and redness [facility] Medical History (Updated 05/11/24 @ 08:10 by Jane Farris) Phlebitis and thrombophlebitis of superficial vessels of right lower extremity ?I80.01 - Phlebitis and thrombophlebitis of superficial vessels of right lower extremity (ICD-10) Hemorrhoids, internal ?K64.8 - Other hemorrhoids (ICD-10) Pain due to varicose veins of both lower extremities ?I83.813 - Varicose veins of bilateral lower extremities with pain (ICD-10) Tinea pedis ?B35.3 - Tinea pedis (ICD-10) Sleep apnea ?G47.30 - Sleep apnea, unspecified (ICD-10) Restless leg ?G25.81 - Restless legs syndrome (ICD-10) Onychomycosis ?B35.1 - Tinea unguium (ICD-10) Obesity ?E66.9 - Obesity, unspecified (ICD-10) Left ventricular failure ?I50.1 - Left ventricular failure, unspecified (ICD-10) Hypokalemia ?E87.6 - Hypokalemia (ICD-10) Hyperglycemia ?R73.9 - Hyperglycemia, unspecified (ICD-10) Hyperlipemia ?E78.5 - Hyperlipidemia, unspecified (ICD-10) Accelerated essential hypertension ?I10 - Essential (primary) hypertension (ICD-10) Elevated PSA ?R97.20 - Elevated prostate specific antigen [PSA] (ICD-10) Cardiomyopathy ?I42.9 - Cardiomyopathy, unspecified (ICD-10) Anxiety ?F41.9 - Anxiety disorder, unspecified (ICD-10) Surgical History (Updated 05/25/24 @ 08:56 by Gerald Lopez) Status post laser ablation of incompetent vein ?Z98.890 - Other specified postprocedural states (ICD-10) Status post laser ablation of incompetent vein ?Z98.890 - Other specified postprocedural states (ICD-10) S/P TURP ?Z90.79 - Acquired absence of other genital organ(s) (ICD-10) Family History (Updated 04/06/24 @ 10:04 by Destini Carlin RN) Other Family history of CHF (congestive heart failure) Family history of cancer Family history of hypertension Family history of myocardial infarction Social History (Updated 04/06/24 @ 10:05 by Destini Carlin RN) Within the past year, how often did you have a drink containing alcohol: never Score interpretation: A score less than 4 is consistent with normal alcohol consumption. Smoking status: Never smoker Non-prescribed substance use: denies use Meds Home Medications and Allergies Home Medications ?Medication ?Instructions ?Recorded ?Confirmed ?Type amiloride 5 mg tablet 5 mg PO DAILY 04/06/24 04/06/24 History amlodipine 10 mg tablet 10 mg PO DAILY 04/06/24 04/06/24 History aspirin 325 mg tablet 325 mg PO DAILY 04/06/24 04/06/24 History carvedilol 25 mg tablet (Coreg) 25 mg PO BID 04/06/24 04/06/24 History doxazosin 4 mg tablet (Cardura) 4 mg PO QPM 04/06/24 04/06/24 History finasteride 5 mg tablet 5 mg PO DAILY 04/06/24 04/06/24 History hydralazine .Route DAILY 04/06/24 History hydrochlorothiazide 25 mg tablet 25 mg PO DAILY 04/06/24 04/06/24 History losartan 100 mg tablet 100 mg PO DAILY 04/06/24 04/06/24 History lovastatin 30 mg PO QAM 04/06/24 04/06/24 History montelukast 10 mg tablet 10 mg PO DAILY 04/06/24 04/06/24 History niacin 500 mg capsule,extended 500 mg PO DAILY 04/06/24 04/06/24 History release paroxetine HCl 20 mg tablet 20 mg PO DAILY 04/06/24 04/06/24 History potassium chloride 10 mEq 10 meq PO DAILY 04/06/24 04/06/24 History tablet,extended release (Klor-Con) apixaban 5 mg tablet (Eliquis) 5 mg PO BID 05/04/24 05/04/24 History Allergies Allergy/AdvReac Type Severity Reaction Status Date / Time clarithromycin Allergy Unknown Unknown Verified 04/06/24 09:39 Exam Narrative Exam Narrative: excessive edema noted to right lower leg. Patient states this is not out of the normal and he has not worn compression x2days along with he has yet to take his diuretic this dayl IGuillermo MD personally performed the services described in this documentation, as scribed by Gerald Lopez RN in my presence and it is both accurate and complete. IGerald RN, am scribing for, and in the presence of, Dr. Guillermo Gurrola and in the presence of the patient. Constitutional Vital Signs, click to edit/add: Last Vital Signs Pulse 70 04/20/24 09:25 Resp 18 04/20/24 09:25 BP 120/64 04/20/24 09:25 Pulse Ox 96 04/20/24 09:25 Documenting provider has reviewed patient's vital signs: yes Common normals: oriented x3 Nutritional appearance: overweight Lymph Lymphatic: no lymphedema noted Cardio Peripheral pulses: posterior tibial pulses present and dorsalis pedis pulses present Extremity General: calf tenderness, edema and other findings Right lower extremity: lower leg Right lower leg: inspection and palpation Left lower extremity: lower leg Left lower leg: inspection and palpation Neuro Common normals: oriented x3 Assessment and Plan Assessment and Plan (1) Pain due to varicose veins of both lower extremities: Plan f/u evaluation with physician along with left leg limited u/s I, Guillermo Gurrola MD personally performed the services described in this documentation, as scribed by Gerald Lopez RN in my presence and it is both accurate and complete. IGerald RN, am scribing for, and in the presence of, Dr. Guillermo Gurrola and in the presence of the patient. Procedures Procedure Instructions Procedures Plan of care: Risks and benefits of the procedure were discussed at length and informed written consent was obtained.? Time-out completed for verification of correct patient, procedure and site.? Staff present during time-out: Gerald Lopez RN,? [facility]ill[facility] Gurrola MD, [facility] Time__[id number] Patient prepped and procedure performed in usual sterile fashion. Risk of injury related to use of Diode laser and/or laser devices? __CR___ ? Serial number of laser used :? [id number] Control panel self test performed, electrical cords in good condition, floor is dry, basin of water available, fire extinguisher in close proximity_CR__ Polycarbonate goggles available and Laser warning signs outside of doors___CR__ Eye protection provided to patient and staff in room_CR___ Use of laser retardant drapes and dull blackened instruments as directed__CR___ Use of nonflammable prep solutions and use of saline soaked sponges to protect tissues as indicated _CR___ Length __58 cm Laser operated by __Dr. Gurrola Physician verbal confirmation laser locked in place__CR__ Laser start time (date and time) _05/25/2024@__12 Laser stop time(date and time) __05/25/2024@__20 Burroughs _8.0___ Average laser use __4022 Joules Average laser use___503 seconds Pulse continuous ___CR_? Pulse intermittent ___ Amount of Tumescent used _300cc Evaluated patient for signs and symptoms of electrical injury __CR___ ? Skin clear at insertion site __CR___ Patient tolerated procedure well.? Left leg Coban dressing applied to access site.? Applied Left thigh high leg compression stocking. Will return on 06/01/2024 for Left leg limited venous ultrasound and exam. I, Guillermo Gurrola MD personally performed the services described in this documentation, as scribed by Gerald Lopez RN in my presence and it is both accurate and complete. I, Gerald Lopez RN, am scribing for, and in the presence of, Dr. Guillermo Gurrola and in the presence of the patient.
--- NOTE | 2024-05-24 09:34 | P.DS_ITS ---
Discharge Plan Discharge Disposition: Home, Self-Care Outpatient Diagnostics: [facility] Facility EST LMTD (Routine) Timeframe: 2 Weeks Facility: [facility] - Location: [facility] Ordered By: Guillermo Gurrola VC EXT Venous LT Limited (Routine) Timeframe: 2 Weeks Facility: [facility] - Location: [facility] Ordered By: Guillermo Gurrola Follow Up Appointments: 06/01/2024 Plan of Treatment: f/u evaluation along with left leg limited us Patient Instructions: Endovenous Ablation (DC) Print Language: Latvian Discharge Date/Time: 05/25/24 09:50
--- OUTSIDE RECORDS SUMMARY | 2024-05-25 07:43 | XMS_ITS | CCD ---
Author Organization [facility] Care Team Providers Care Partner Name Role Phone Pocarrilloalska Danyell Unavailable Unavailable Pocarrilloalska, Danyell Unavailable Unavailable [facility] Unavailable Unavailable Pocarrilloalshortencia, Danyell Unavailable Unavailable Omar Danyell Unavailable Unavailable Terri Santos Unavailable Unavailable Terri aSntos Unavailable Chriss Marie Unavailable Unavailable Terri Santos Unavailable Unavailable Unavailable Terri Santos Primary Care Physician MD Terri Santos Primary Care Provider MD Luiz Morrison Attending Provider [phone] MD Burak Rangel Attending Provider Burak Rangel [...] Morrison Admitting Unavailable Luiz Morrison Attending Unavailable AllTerri chun Primary Care Unavailable Luiz Morrison Admitting Unavailable Luiz Morrison Attending Unavailable Allsobritt, Terri Primary Care Unavailable Burak Rangel Admitting Unavailable Burak Rangel Attending Unavailable Terri Santos Primary Care Unavailable MD Terri Santos Primary Care Provider MD Burak Rangel Attending Provider ROSAP, TERRI Pfeiffer Primary Care Unavailable JOSSELIN DECKER Attending Unavailable CATRACHITO BARTON Referring Unavailabl e AllsoTerri greene DO Primary Care Provider Luiz MORRISON Attending Unavailable MORRISONLuiz Attending Unavailable Allsop, Terri Pfeiffer Admitting Unavailable Allsop, Terri Pfeiffer Attending Unavailable Allsop, Terri Pfeiffer Admitting Unavailable Allsop, Terri Pfeiffer Attending Unavailable Allsop, Terri Pfeiffer Referring Unavailable Luiz MORRISON Attending Unavailable Luiz MORRISON Admitting Unavailable Allsop, Terri Pfeiffer Admitting Unavailable Allsop, Terri Pfeiffer Attending Unavailable DELORES AC Attending Unavailable ALLSOBritt, TERRI PEARCE Primary Care Unavailab ADAM Otero Attending Unavailable ALLSOP, TERRI Pfeiffer Attending Unavailable DOLCEADAM Attending Unavailable ALLSOP, TERRI Pfeiffer Attending Unavailable ALLSOP, TERRI Pfeiffer Attending Unavailable DOLADAM HOLLINS Attending Unavailable DOLADAM HOLLINS Attending Unavailable GUNNAR ADLER Attending Unavailable LILIAAN WALLER Attending Unavailable Allsop DO, Terri Pfeiffer Unavailable UnavailLiliana Pond MD Primary Care Provider Allergies Allergy Classification Reported Allergen(s) Allergy Type Date of Onset Reaction(s) Facility Macrolides (antibiotic) (1 source) Clarithromycin Drug Allergy Unknown [facility] (1 source) No Known Medication Allergies; Translations: [No Known Medication Allergies] Propensity to adverse reactions to drug (disorder) [facility] (9 sources) shellfish, unspecified Allergy to substance (finding) [facility] 600 DO Work Phone: (14 sources) Clarithromycin; Translations: [clarithromycin] Drug Allergy Unknown [facility] [place] (2 sources) Shellfish; Translations: [SHELLFISH CONTAINING PRODUCTS] Drug Allergy 3 Swelling [facility] (2 sources) Shellfish; Translations: [SHELLFISH DERIVED] Propensity to adverse reactions 4 Other [facility] (3 sources) Clarithromycin Allergy to substance 3 Unknown [facility] Work Phone: Medications Current Medications Medication Drug Class(es) Dates Sig (Normalized) Sig (Original) acetaminophen 325 mg / HYDROcodone bitartrate 7.5 mg oral tablet (2 sources) Opioid Agonist Start: 02-12-2022 take 1 tablet by mouth once [place] 325 mg-7.5 mg oral tablet 1 tab(s), Oral, Once, 1 tab(s), Refill(s) 0, Take 1 hour prior to procedure. Don't drive or operate machinery while taking this medication., [facility], 178, cm, 12/22/21 8:18:00 EDT, Height/Length Dosing, 137.1, kg, 12/22/21 8:17:00 EDT,... Start Date: 02/12/22 Status: Ordered aMILoride hydrochloride 5 mg oral tablet (20 sources) Potassium-sparin g Diuretic Start: 04-13-2022 take 5 mg by mouth twice daily Amiloride Active 5 MG PO Twice daily April 13, 2022 12:00am Start: 06-27-2019 take 2 tablets by [facility] once daily amiloride 5 mg oral tablet See Instructions, Take 2 tablets by mouth once daily, # 180 EA, Refills(s) 1, Pharmacy: [facility], 177, cm, 08/28/20 9:27:00 EST, Height/Length Dosing, 84, kg, 08/28/20 9:27:00 EST, Weight Dosing Start Date: 10/09/20 Status: Ordered End: 09-30-2023 take 1 tablet by mouth once daily aMILoride (Midamor) 5 mg tablet Take 1 tablet (5 mg) by mouth once daily. 0 09/30/2023 Discontinued (Other) aMILoride HCl Ac tive Comment on above: TAKE 2 TABLETS BY [facility] ONCE DAILY FOR 90 DAYS amLODIPine 10 mg oral tablet (20 sources) Dihydropyridine Calcium Channel Jonathan Start: 05-19-20 End: 05-18-20 take 1 tablet by mouth in the morning amLODIPine (Norvasc) 10 MG tablet Indications: Primary hypertension (CMS/HCC) Take 1 tablet (10 mg) by mouth in the morning. 30 tablet 11 05/19/2023 05/18/2024 Active Start: 06-10-2021 End: 09-30-2023 take 5 mg by mouth once daily at bedtime Amlodipine Active 5 MG PO Daily at bedtime April 13, 2022 12:00am amLODIPine Besyl ate Active Comment on above: Take 5 mg by mouth o nce daily. apixaban 5 mg oral tablet (3 sources) Factor Xa Inhibitor Start: 04-06-20 take 1 tablet by mouth in the morning apixaban (Eliquis) 5 MG tablet Indications: Blood clot in vein Take 1 tablet (5 mg) by mouth in the morning and 1 tablet (5 mg) before bedtime. 60 tablet 5 04/06/2024 Active {1 (Ascorbic Acid 7540 MG / POLYETHYLENE GLYCOL 3350 41366 MG / Potassium Chloride 1200 MG / Sodium Ascorbate 76252 MG / Sodium Chloride 3200 MG Powder for Oral Solution) / 1 (POLYETHYLENE GLYCOL 3350 026667 MG / Potassium Chloride 1000 MG / [...] other day, Refills(s) 0, Prophylaxis Start Date: 8/6/19 Status: Ordered Aspirin Active take 1 tablet by [facility] once daily Aspirin 325 MG Oral Tablet [...] Start: 08-06-2011 take 2 tablets by [facility] twice daily Coreg 12.5 mg Tab 25 mg = 2 tab(s), Oral, BID, Refills(s) 0, Other (see comment) Start Date: 08/06/11 Status: Ordered take 4 tablets by mo [facility] twice daily Carvedilol 12.5 MG Oral Tablet TAKE 12.5 TABLET Twice daily Quantity: 180 Refills: 3 Ordered: 11-May-2022 Bienvenido Lee ZAYDAValerie Active carvedilol (CORE G) 25 mg tablet [...] extended release oral tablet (1 source) Uncompetitive L-lgxghf-Q-aspartate Receptor Antagonist, Sigma-1 Agonist Start: End: take [...] oral tablet (20 sources) alpha-Adrenergic Jonathan Start: 012 take 1 tablet by mouth once daily at bedtime doxazosin (Cardura) 4 MG tablet Indications: Benign prostatic hyperplasia without lower urinary tract symptoms TAKE 1 TABLET BY MOUTH ONCE DAILY AT BEDTIME 30 tablet 11 07/20/2023 Active Comment on above: Take 4 mg by [...] day(s), # 42 cap(s), Refills(s) 0, Pharmacy: [facility], 178, cm, 11/26/21 12:38:00 EDT, [...] End: 05-26-2024 take 1 tablet by mouth in the morning, then take 1 tablet by mouth in the evening, then take 1 tablet by mouth at bedtime hydrALAZINE (Apresoline) 50 MG tablet Indications: Primary hypertension (CMS/HCC) Take 1 tablet (50 mg) by mouth in the morning and 1 tablet (50 mg) in the evening and 1 tablet (50 mg) before bedtime. 90 tablet 3 05/19/2023 Active Start: 06-29-2019 hydrALAZINE (A PRESOLINE) 25 mg [...] (20 sources) Thiazide Diuretic Start: 2019 take 1 tablet by mouth once daily in the morning hydroCHLOROthiazide (HYDRODiuril) 25 MG tablet Indications: Essential hypertension (CMS/HCC) TAKE 1 TABLET BY MOUTH ONCE DAILY IN THE MORNING 90 tablet 3 12/01/2023 Active hydroCHLOROthiaz candi (HYDRODIURIL, ESIDRIX) 50 mg tablet [...] 10 mg oral tablet (20 sources) Start: 08-24-20 22 take 1 tablet by mouth once daily [...] Start: 0 take 1 tablet by mouth in the morning losartan (Cozaar) 100 MG tablet Indications: Primary hypertension (CMS/HCC) Take 1 tablet (100 mg) by mouth in the morning. 30 tablet 11 05/19/2023 Active Comment on above: Take 100 mg by mouth once daily. lovastatin 20 mg oral tablet (20 sources) HMG-CoA Reductase Inhibitor Start: 4 take 1.5 tablets by mouth in the morning lovastatin (Mevacor) 20 MG tablet Indications: Mixed hyperlipidemia (CMS/HCC) Take 1.5 tablets (30 mg) by mouth in the morning. 45 tablet 11 08/09/2023 Active Start: 04-13-2022 take 30 mg by mouth once daily at bedtime Lovastatin Active 30 MG PO Daily at bedtime April 13, 2022 12:00am Start: 03-31-2022 lovastatin 20 mg Tab 30 mg = 1.5 tab(s), Oral, Daily, Refills(s) 0, High cholesterol Start Date: 03/31/22 Status: Ordered Start: 06-12-2019 take 1 tablet by [facility] once daily lovastatin (MEVACOR) 20 mg tablet TAKE 1 & 1 2 (ONE & ONE HALF) TABLETS BY MOUTH ONCE DAILY 9 06/12/2019 Active Start: 09-23-2017 take 3 tablets by mo [facility] once daily lovastatin 10 mg Tab 30 mg = 3 tab(s), Oral, Daily, Refills(s) 0 Start Date: 09/23/17 Status: Ordered take 2 tablets by mo [facility] every other day lovastatin (Mevacor) 20 mg [...] sources) Leukotriene Receptor Antagonist Start: 2 take 1 tablet by mouth at bedtime montelukast (Singulair) 10 MG tablet Indications: Seasonal allergies Take 1 tablet (10 mg) by mouth at bedtime. 30 tablet 11 05/27/2023 Active Start: 12-10-2009 End: 01-09-2010 take 1 tablet [...] Ordered take 1 tablet by [facility] th at bedtime niacin (Niaspan) 500 MG ER tablet Take 500 mg by mouth at bedtime. Do not crush, chew, or split. Active take 1 tablet by [facility] th once daily Niacin 250 MG Oral Tablet TAKE 1 TABLET DAILY DIRECTED. Quantity: 0 Refills: 0 Ordered: 31-Aug-2021 DO Active omega 1-esj-zxo-fish oil 360 mg-108 mg- 180 mg-1,200 mg capsule (1 source) End: 09-30-2023 take 1 capsule by mouth once daily omega 7-fwa-mth-fish oil 360 mg-108 mg- 180 mg-1,200 mg capsule Take 1 capsule by mouth once daily. 0 09/30/2023 Discontinued (Other) [place]-3 Fatty Acids (3 sources) Start: 04-13-2022 take 2000 mg by mouth once daily at bedtime [place]-3 Fatty Acids Active 2000 MG PO Daily at bedtime April 13, 2022 12:00am [place]-3 Fatty Acids ([place] 3 Fish Oil) Capsule (2 sources) Start: 04-13-2022 take 1 capsule by mouth once daily at bedtime [place]-3 Fatty Acids ([place] 3 Fish Oil) Capsule Active 2000 MG PO Daily at bedtime April 13, 2022 12:00am PARoxetine hydrochloride 20 mg oral tablet (20 sources) Serotonin Reuptake Inhibitor Start: 09-23-2017 take 0.5-1 tablets by mouth once daily PARoxetine (Paxil) 20 MG tablet Indications: Major depressive disorder in partial remission, unspecified whether recurrent (HCC) (CMS/HCC) TAKE 1/2 TO 1 (ONE-HALF TO ONE) TABLET BY MOUTH ONCE DAILY 90 tablet 3 12/01/2023 Active Start: 09-23-2017 take 1 tablet by [facility] [...] extended release oral tablet (20 sources) Start: 10-03-19 24 take 7 tablets by mouth once daily potassium chloride CR (Klor-Con) 10 MEQ ER tablet Indications: Hypokalemia TAKE 7 TABLETS BY MOUTH ONCE DAILY FOR 30 DAYS 210 tablet 11 10/03/2023 Active Start: 04-13-2022 take 70 mEq by mouth once daily at bedtime Potassium Chloride Active 70 MEQ PO Daily at bedtime April 13, 2022 12:00am Start: 10-07-2011 take 7 tablets by [facility] once daily Klor-Con 10 mEq 70 mEq = 7 tab(s), Oral, Daily, # 210, Refills(s) 0, Prophylaxis Start Date: 10/07/11 Status: Ordered Start: 10-07-2011 take 7 tablets by [facility] once daily Klor-Con 10 mEq 70 mEq = 7 tab(s), Oral, Daily, # 210, Refills(s) 0, Prophylaxis Start Date: 10/07/11 Status: Ordered Start: 10-07-2011 take 7 tablets by [facility] once daily Klor-Con 10 mEq 70 mEq = 7 tab(s), Oral, Daily, # 210, Refills(s) 0, Prophylaxis Start Date: 10/07/11 Status: Ordered potassium chlori de CR (Klor-Con M10) 10 MEQ ER tablet Take 10 mEq by mouth in the morning. Do not crush or chew. . Active potassium chlori de CR 20 mEq ER [...] mg/ml injectable solution (18 sources) Androgen Start: 2 Testosterone Cypionate Active [...] q4wk, # 2 mL, Refills(s) 4, Pharmacy: [facility], 177, cm, 08/28/20 [...] procedure, # 2 tab(s), Refills(s) 0, Pharmacy: [facility], 178, cm, 11/04/21 10:45:00 EDT, Height/Length [...] 0 Refills: 0 Ordered: 31-Aug-2021 DO Active [place]-3 CAPS (8 sources) [place]-3 CAPS LADONNA E DIRECTED. Quantity: 0 Refills: [...] Active Problems Problem Classification Problem Date Documented Da te Episodic/Chronic Anxiety disorders (20 sources) Anxiety; Translations: [Anxiety disorder] Onset: 3 12-08-2021 Chronic Asthma (20 sources) Asthma; Translations: [Asthma, unspecified type, unspecified] Onset: 1 01-24-2014 Chronic Cataract (1 source) Bilateral senile combined form cataracts of eyes; Translations: [Combined forms of age-related cataract, bilateral] Chronic Congestive heart failure; nonhypertensive (20 sources) Chronic heart failure; Translations: [Left heart failure] Onset: 3 03-13-2019 Chronic Disorders of lipid metabolism (20 sources) Hyperlipidemia; Translations: [Other and unspecified hyperlipidemia] Onset: 3 11-06-2020 Chronic Essential hypertension (20 sources) Essential hypertension; Translations: [Unspecified essential hypertension] Onset: 3 02-21-2020 Chronic Genitourinary symptoms and ill-defined conditions (17 sources) Urge incontinence; Translations: [Urge incontinence of urine] Onset: 2 Chronic Glaucoma (1 source) Ocular hypertension; Translations: [Ocular hypertension, bilateral] Onset: 8 04-12-2018 Chronic Hemorrhoids (9 sources) Thrombosed external hemorrhoids 04-25-2022 Episodic Hyperplasia of prostate (20 sources) Benign prostatic hypertrophy with outflow obstruction; Translations: [Benign prostatic hyperplasia with lower urinary tract symptoms] Onset: 2 Chronic Mood disorders (20 sources) Dysthymia; Translations: [Depressive disorder] Onset: 0 03-13-2019 Chronic Other aftercare (2 sources) Long-term current use of anticoagulant; Translations: [long term care social worker (current) use of anticoagulants] 05-10-2024 Episodic Other and ill-defined heart disease (20 sources) Heart disease 11-04-2021 Chronic Other diseases of kidney and ureters (3 sources) Urinary tract obstruction; Translations: [Other obstructive and reflux uropathy] Onset: 2 Episodic Other endocrine disorders (20 sources) Male hypogonadism; Translations: [Testicular hypofunction] Onset: 3 11-06-2020 Chronic Other endocrine disorders (2 sources) Hypogonadotropic hypogonadism; 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 Other eye disorders (1 source) Bilateral posterior vitreous detachment; Translations: [Vitreous degeneration, bilateral] Chronic Other eye disorders (2 sources) Bilateral vitreous floaters; Translations: [Other vitreous opacities, bilateral] Onset: 8 Chronic Other eye disorders (1 source) Posterior vitreous detachment of left eye; Translations: [Vitreous degeneration, left eye] Onset: 8 04-12-2018 Chronic Other eye disorders (1 source) Bilateral floppy eyelid syndrome of eyes; Translations: [Other disorders affecting eyelid function] Episodic Other hereditary and degenerative nervous system conditions (20 sources) Restless legs 12-08-2021 Chronic Other nutritional; endocrine; and metabolic disorders (20 sources) Body mass index 40+ - severely obese; Translations: [Morbid obesity] Onset: 2 Chronic Other nutritional; endocrine; and metabolic disorders (20 sources) Hypocalcemia 11-06-2020 Chronic Other nutritional; endocrine; and metabolic disorders (20 sources) Obesity; Translations: [Obesity, unspecified] Onset: 2 02-21-2020 Chronic Other nutritional; endocrine; and metabolic disorders (20 sources) Hypercalcemia; Translations: [Hypercalcemia] Onset: 3 12-08-2021 Chronic Other nutritional; endocrine; and metabolic disorders (20 sources) Morbid obesity; Translations: [Morbid (severe) obesity due to excess calories] 12-08-2021 Chronic Other nutritional; endocrine; and metabolic disorders (3 sources) Morbid (severe) obesity due to excess calories; Translations: [Morbid (severe) obesity due to excess calories (CMS/HCC)] Onset: 2 Resolved: 2 Chronic Other nutritional; endocrine; and metabolic disorders (13 sources) Body mass index 30+ - obesity 04-01-2022 Chronic Other nutritional; endocrine; and metabolic disorders (2 sources) Body mass index (BMI) 40.0-44.9, adult; Translations: [Body mass index (BMI) 40.0-44.9, adult (CMS/HCC)] Onset: 4 Chronic Other nutritional; endocrine; and metabolic disorders (3 sources) Obesity caused by energy imbalance; Translations: [Morbid (severe) obesity due to excess calories] Onset: 4 12-18-2023 Chronic Other upper respiratory disease (20 sources) Seasonal allergy; Translations: [Other seasonal allergic rhinitis] Onset: 3 12-08-2021 Chronic Other upper respiratory infections (4 sources) Upper respiratory infection; Translations: [Acute upper respiratory infections of unspecified site] 03-10-2021 Episodic Comment on above: URI Daina-; endo-; and myocarditis; cardiomyopathy (except that caused by tuberculosis or sexually transmitted disease) (20 sources) Cardiomyopathy; Translations: [Other primary cardiomyopathies] Onset: 3 12-08-2021 Chronic Peripheral and visceral atherosclerosis (20 sources) Peripheral vascular disease; Translations: [Peripheral vascular disease, unspecified] Onset: 3 12-08-2021 Chronic Phlebitis; thrombophlebitis and thromboembolism (2 sources) Acute deep vein thrombosis of lower limb; Translations: [Acute embolism and thrombosis of unspecified deep veins of right distal lower extremity] 05-10-2024 Episodic Residual codes; unclassified (10 sources) Obstructive sleep apnea of adult; Translations: [Obstructive sleep apnea (adult)(pediatric)] Onset: 3 09-30-2023 Chronic Residual codes; unclassified (20 sources) Sleep apnea; Translations: [Sleep apnea, unspecified] Onset: 3 12-08-2021 Chronic Residual codes; unclassified (2 sources) Periodic limb movement disorder; Translations: [Periodic limb movement disorder] Chronic Residual codes; unclassified (2 sources) Obstructive sleep apnea syndrome; Translations: [Obstructive sleep apnea (adult) (pediatric)] Chronic Residual codes; unclassified (4 sources) Obstructive sleep apnea (adult) (pediatric); Translations: [Obstructive sleep apnea (adult) (pediatric)] Onset: 2 Resolved: 2 Chronic Residual codes; unclassified (1 source) Periodic limb movement disorder Onset: 2 Resolved: 2 Chronic Residual codes; unclassified (1 source) Obstructive sleep apnea (adult)(pediatric); Translations: [Obstructive sleep apnea (adult) (pediatric)] Onset: 3 Chronic Residual codes; unclassified (2 sources) Sleep apnea, unspecified; Translations: [Obstructive sleep apnea (adult)(pediatric)] 03-12-2024 Chronic Residual codes; unclassified (1 source) H/O: Disorder; Translations: [Personal history of other specified conditions] Onset: 3 Episodic Retinal detachments; defects; vascular occlusion; and retinopathy (1 source) Bilateral epiretinal membrane of eyes; Translations: [Puckering of macula, bilateral] Chronic Unclassified (19 sources) Patient encounter status 12-11-2021 Unclassified (1 source) Benign prostatic hyperplasia with lower urinary tract symptoms; Translations: [Benign prostatic hyperplasia with lower urinary tract symptoms] Onset: 2 Unclassified (1 source) Encounter for preprocedural laboratory examination; Translations: [Encounter for preprocedural laboratory examination] Onset: 2 Unclassified (3 sources) History of clinical finding in subject 06-15-2023 Past or Other Problems Problem Classification Problem Date Documented Da te Episodic/Chronic Blindness and vision defects (1 source) Bilateral myopia of eyes; Translations: [Myopia, bilateral] Onset: 08-27-2019 08-27-2019 Episodic Diabetes mellitus without complication (20 sources) Hyperglycemia; Translations: [Hyperglycemia, unspecified] Onset: 03-11-2023 02-21-2020 Episodic Fluid and electrolyte disorders (20 sources) Hypokalemia; Translations: [Hypokalemia] Onset: 03-11-2023 02-21-2020 Episodic Genitourinary symptoms and ill-defined conditions (20 sources) Blood in urine; Translations: [Gross hematuria] Onset: 11-04-2021 Episodic Malaise and fatigue (20 sources) Fatigue; Translations: [Other fatigue] Onset: 03-11-2023 12-08-2021 Episodic Mycoses (20 sources) Onychomycosis; Translations: [Tinea pedis] Onset: 01-04-2023 03-13-2019 Episodic Nonmalignant breast conditions (9 sources) Drug-induced gynecomastia; Translations: [Hypertrophy of breast] Onset: 05-27-2023 05-27-2023 Episodic Other connective tissue disease (3 sources) Pain of toe of right foot; Translations: [Pain in right toe(s)] Onset: 01-04-2023 01-04-2023 Episodic Other connective tissue disease (3 sources) Pain of toe of left foot; Translations: [Pain in left toe(s)] Onset: 01-04-2023 01-04-2023 Episodic Other screening for suspected conditions (not mental disorders or infectious disease) (20 sources) Liver function tests abnormal; Translations: [Raised prostate specific antigen] Onset: 12-11-2021 Resolved: 05-10-2024 12-08-2021 Episodic Other skin disorders (3 sources) Skin tag; Translations: [Other hypertrophic disorders of the skin] Onset: 12-18-2023 12-18-2023 Episodic Residual codes; unclassified (20 sources) Edema; Translations: [Edema, unspecified] Onset: 03-11-2023 12-08-2021 Episodic Spondylosis; intervertebral disc disorders; other back problems (6 sources) Acute back pain with sciatica; Translations: [Lumbago with sciatica, right side] Onset: 03-11-2023 03-11-2023 Episodic Thyroid disorders (20 sources) Hypothyroidism; Translations: [Hypothyroidism, unspecified] Onset: 03-11-2023 Resolved: 05-21-2023 05-22-2020 Chronic Unclassified (8 sources) Never smoked tobacco; Translations: [...] Signed by: Dyllan Kitchen M.D. Transcribed by: REGAL Technologist: [facility] Consent for Treatmenton 11-06 Consent for Treatment [id number] 0TIFF [facility] Physician Orderon 11-18-2023 Physician Order [id number] 0TIFF [facility] CBC w/ Auto Diffon 4 Basophils/100 WBC (Bld) 0.8 % Normal 0.0-2.0 [facility] Comment on above: Performed By: #### 2 [id number], [id number], [id number], [id number] ####[facility] [id number] [place] [address] Basophils/Leukocytes Auto (Bld) [Pure # fraction] 0.1 E9/L Normal 0.0-0.2 [facility] Comment on above: Performed By: #### 2 [id number], [id number], [id number] ####[address] [address] Eosinophils (Bld) [#/Vol] 0.3 E9/L Normal 0.0-0.5 [facility] Comment on above: Performed By: #### 2 [id number], [id number], [id number], [id number] ####[address] [address] Eosinophils/100 WBC (Bld) 3.4 % Normal 0.0-8.0 [facility] Comment on above: Performed By: #### 2 [id number], [id number], [id number], [id number] ####[address] [address] Erythrocyte distribution width (RBC) [Ratio] 13.6 % Normal 10.9-14.2 [facility] Comment on above: Performed By: #### 2 [id number], [id number], [id number], [id number] ####[address] [address] Hematocrit (Bld) [Volume fraction] 39.9 % Normal 37.7-49.0 [facility] Comment on above: Performed By: #### 2 [id number], [id number], [id number], [id number] ####[address] [address] Hemoglobin (Bld) [Mass/Vol] 13.7 g/dL Normal 13.5-17.5 [facility] Comment on above: Performed By: #### 2 [id number], [id number], [id number], [id number] ####[place] [id number] Lymphocytes (Bld) [#/Vol] 1.5 E9/L Normal 1.0-4.0 [facility] Comment on above: Performed By: #### 2 [id number], [id number], [id number], [id number] ####[place] [id number] Lymphocytes/100 WBC (Bld) 20.2 % Normal 14.0-50.0 [facility] Comment on above: Performed By: #### 2 [id number], [id number], [id number], [id number] ####[place] [id number] MCH (RBC) [Entitic mass] 30.4 pg Normal 27.0-34.0 [facility] Comment on above: Performed By: #### 2 [id number], [id number], [id number], [id number] ####[place] [id number] MCHC (RBC) [Mass/Vol] 34.3 g/dL Normal 31.4-36.0 [facility] Comment on above: Performed By: #### 2 950045, [id number], [id number], [id number] ####[place] [id number] MCV (RBC) [Entitic vol] 88.6 fL Normal 80.0-100.0 [facility] Comment on above: Performed By: #### 2 [id number], [id number], [id number], [id number] ####[place] [id number] Monocytes (Bld) [#/Vol] 0.7 E9/L Normal 0.2-1.0 [facility] Comment on above: Performed By: #### 2 964285, 46168526, 0626532, 4087362 ####[address] [address] Neutrophils (Bld) [#/Vol] 5.0 E9/L Normal 2.0-7.5 [facility] Comment on above: Performed By: #### 2 717922, 21179619, 1798246, 8392439 ####[address] [address] Neutrophils/100 WBC (Bld) 66.1 % Normal 36.0-75.0 [facility] Comment on above: Performed By: #### 2 071616, 73653814, 4520835, 5411635 ####[address] [address] Platelet mean volume (Bld) [Entitic vol] 9.1 fL Normal 6.4-10.8 [facility] Comment on above: Performed By: #### 2 503473, 20029591, 9332000, 7584173 ####[address] [address] Platelets (Bld) [#/Vol] 216.0 E9/L Normal 150.0-500.0 [facility] Comment on above: Performed By: #### 2 660620, 47857367, 4404418, 3513031 ####[address] [address] RBC (Bld) [#/Vol] 4.5 E12/L Normal 4.3-5.9 [facility] Comment on above: Performed By: #### 2 250721, 54310811, 6428323, 9447597 ####[address] [address] WBC corrected for nucl RBC Auto (Bld) [#/Vol] 7.5 E9/L Normal 4.0-11.0 [facility] Comment on above: Performed By: #### 2 779511, 55346894, 6572410, 8217627 ####[address] [place] [address] CHEMISTRYOrdered By: SYSTEM SYSTEM on 10-21-2023 Albumin [...] 10-21-2023 Albumin [Mass/Vol] 4.3 g/dL Normal 3.3-5.0 [facility] Comment on above: Performed By: #### 2 205446, 21291858, 3083031, 5450159 ####[facility] [address] [place] [address] Albumin/Globulin (S) [Mass conc ratio] 1.7 Normal 1.1-2.2 [facility] Comment on above: Performed By: #### 2 789651, 25459475, 8885925, 5588907 ####[facility] [address] [place] [address] ALP [Catalytic activity/Vol] 66 Int._Unit/L Normal 21-98 [facility] Comment on above: Performed By: #### 2 493387, 92247047, 3750613, 8417003 ####[facility] [address] [place] [address] ALT No additional P-5'-P [Catalytic activity/Vol] 17 Int._Unit/L Normal 6-46 [facility] Comment on above: Performed By: #### 2 801717, 47547837, 4451798, 8244989 ####[facility] [address] [place] [address] Anion gap [Moles/Vol] 13 mmol/L Normal 6-16 [facility] Comment on above: Performed By: #### 2 299857, 00505465, 9196276, 4985966 ####[facility] [address] [place] [address] AST [Catalytic activity/Vol] 17 Int._Unit/L Normal 5-43 [facility] Comment on above: Performed By: #### 2 853219, 68310975, 3180310, 6969305 ####[facility] [address] [place] [address] Bilirubin [Mass/Vol] 0.9 mg/dL Normal 0.0-1.1 [facility] Comment on above: Performed By: #### 2 899790, 54607480, 5544649, 1473581 ####[facility] [address] [place] [address] Calcium [Mass/Vol] 8.7 mg/dL Low 8.9-11.1 [facility] Comment on above: Performed By: #### 2 666007, 56649629, 0612766, 1957861 ####[facility] [address] [place] [address] Chloride [Moles/Vol] 104 mmol/L Normal 101-111 [facility] Comment on above: Performed By: #### 2 568904, 78972829, 7748498, 5875223 ####[facility] [address] [place] [address] CO2 [Moles/Vol] 27 mmol/L Normal 21-31 [facility] Comment on above: Performed By: #### 2 258723, 04593973, 0190743, 9117896 ####[facility] [address] [place] [address] Creatinine [Mass/Vol] 0.6 mg/dL Normal 0.5-1.3 [facility] Comment on above: Performed By: #### 2 471473, 45809460, 4017866, 8360190 ####[facility] [address] [place] [address] Globulin (S) [Mass/Vol] 2.6 g/dL Normal 1.4-4.0 [facility] Comment on above: Performed By: #### 2 259898, 79158691, 1795420, 4903139 ####[facility] [address] [place] [address] Glucose [Mass/Vol] 94 mg/dL Normal 55-199 [facility] Comment on above: Performed By: #### 2 743567, 44863238, 1747800, 7447154 ####[facility] [address] [place] [address] Potassium [Moles/Vol] 3.4 mmol/L Low 3.5-5.3 [facility] Comment on above: Performed By: #### 2 826392, 96181075, 1338432, 3047418 ####[facility] [address] [place] [address] Protein [Mass/Vol] 6.9 g/dL Normal 6.0-7.8 [facility] Comment on above: Performed By: #### 2 755817, 51301664, 6449071, 4915032 ####[facility] [address] [place] [address] Sodium [Moles/Vol] 141 mmol/L Normal 135-145 [facility] Comment on above: Performed By: #### 2 939855, 05668456, 6351123, 4196072 ####[facility] [address] [place] [address] Urea nitrogen [Mass/Vol] 9 mg/dL Normal 5-21 [facility] Comment on above: Performed By: #### 2 973543, 05244166, 8469860, 9637498 ####[facility] [address] [place] [address] Urea nitrogen/Creatinine [Mass ratio] 15 No Units Normal 10-20 [facility] Comment on above: Performed By: #### 2 642572, 15036487, 2609188, 7212052 ####[facility] [address] [place] [address] Consent for Treatmenton 10-06 Consent for Treatment [id number] 4030 [id number] 0TIFF Normal [facility] HEMATOLOGYOrdered By: SYSTEM SYSTEM on 10-21-2023 [...] 10-21-2023 Cholesterol [Mass/Vol] 172 mg/dL Normal 120-200 [facility] Comment on above: Performed By: #### 2 650203, 66497405, 7592316, 9178976 ####[facility] [address] [place] [address] Cholesterol in HDL [Mass/Vol] 32 mg/dL Invalid Interpretation Code [facility] Comment on above: Result Comment: '>= 60 LOW RISK' '<= 40 HIGH RISK' Performed By: #### 2 678998, 74429952, 6391369, 7546157 ####[facility] [address] [place] [address] Cholesterol in LDL [Mass/Vol] 107 mg/dL Normal <=129 [facility] Comment on above: Performed By: #### 2 641216, 23899893, 2527142, 8725208 ####[facility] [address] [place] [address] Cholesterol in VLDL [Mass/Vol] 38 mg/dL Normal 7-40 [facility] Comment on above: Performed By: #### 2 838232, 96650560, 0201177, 5979694 ####[facility] [address] [place] [address] Triglyceride [Mass/Vol] 192 mg/dL High <=149 [facility] Comment on above: Performed By: #### 2 014003, 01538366, 1898183, 8205937 ####[facility] [address] [place] [address] Physician Orderon 10-21-2023 Physician Order [id number]#1. 00TIFF Normal [facility] eGFRon 10-21-2023 eGFR 105 mL/min/1.73 m2 Normal >=59 [facility] Comment on above: Order Comment: Order added by Discern Expert. Performed By: #### 2 549485, 71467653, 0505705, 7257637 ####[facility] [address] [place] [address] Screenson 06-16-2023 Screens [id number] .00TIFF [facility] Ambulatory Visit Summaryon 1 08-15-2022 Ambulatory Visit Summary PHU LOPEZ Chuckie :1955 Visit Date:06/15/2023 Ambulatory Visit Instructions Your [...] Where: [facility] [address], [place] [address]- Medications What How Much When Why Instructions [...] colonoscopy Fat (more content not included)... Normal [facility] Patient Educationon 06-15-20 23 Patient Education [...] Follow these instructions at home: ? Take zwmm-mzt-uvoclsn and prescription medicines only as told by [...] the medicine (more content not included)... Normal [facility] Urology Office/Clinic Noteon 06-15-2023 Urology Office/Clinic Note Chief Complaint 8 month follow up [facility] Staff 8 month follow up w/PSA. Current [...] Taking Doxazosin [address] Santso, and Finasteride 5 mg qd. IPSS 5 [...] MORRISON MD, URL [facility] [address], [place] [address]- Additional Instructions: 1 yr with PSA, JEANNA [...] Elevated PS (more content not included)... Normal [facility] Comment on above: Result Comment: Elec tronically Signed By: Luiz MORRISON MD\.br\Date and Time Signed: 06/15/23 14:26 EST\.br\Electronically Co-Signed By: Angelica Colmenares\.br\Date and Time Co-Signed: 06/15/23 14:24 EST PSA Totalon 05-02-2023 Prostate specific Ag [Mass/Vol] 0.5 ng/mL Normal 0.1-3.5 [facility] Comment on above: Result Comment: The concentration of PSA determined by different manufacturers can vary due to differences in assay methods and reagent specificity. Values obtained from different assay methods cannot be used interchangeably. The methodology used for this result was chemiluminescence using [employer] Hy[employer]ch PSA reagent. Performed By: #### 1 [id number] ####[facility] [address] [place] [address] Consent for Treatmenton 04-09 Consent for Treatment [id number] 3090 [id number]#1.0 0CD:127 Normal [facility] Physician Orderon 04-30-2023 Physician Order [id number]#1. 00CD:127 Normal [facility] XR Knee Complete 4+ Views Le [...] mGy = na DAP = na Normal [facility] XR Spine Lumbosacral Minimum 4 Viewson [...] mGy = na DAP = na Normal [facility] Consent for Treatmenton 12-06 Consent for Treatment [id number] 3050 [id number] 0CD:127 Normal [facility] Physician Orderon 12-24-2022 Physician Order [id number]#1. 00CD:127 Normal [facility] CHEMISTRYOrdered By: SYSTEM SYSTEM on 09-29-2022 Anion gap [Moles/Vol] 11 mmol/L Normal 6 - 16 mEq/L [facility] Remisol Calcium [Mass/Vol] 8.9 mg/dL Normal 8.9 - 11. 1 mg/dL [facility] Remisol Chloride [Moles/Vol] 101 mmol/L Normal 101 - 1 11 mmol/L [facility] Remisol Creatinine [Mass/Vol] 0.7 mg/dL Normal 0.5 - 1.3 mg/dL [facility] Remisol GFR/1.73 sq M.predicted among blacks MDRD (S/P/Bld) [Vol rate/Area] mL/min/1.73 m2 Normal >=59mL/min/ 1.73 m2 [facility] Chem S GFR/1.73 sq M.predicted among non-blacks MDRD (S/P/Bld) [Vol rate/Area] mL/min/1.73 m2 Normal >=59mL/min/ 1.73 m2 [facility] Chem S Glucose [Mass/Vol] 107 mg/dL Normal 55 - 199 mg/dL [facility] Remisol Potassium [Moles/Vol] 3.8 mmol/L Normal 3.5 - 5.3 mmol/L [facility] Remisol Sodium [Moles/Vol] 136 mmol/L Normal 135 - 145 mmol/L [facility] Remisol Urea nitrogen [Mass/Vol] 17 mg/dL Normal 5 - 21 mg/dL [facility] Remisol Urea nitrogen/Creatinine [Mass ratio] 24 mg/mg High 10 - 20 [facility] Chemistry and C hemistry - challengeOrdered By: SYSTEM SYSTEM on 09-29-2022 CO2 [Moles/Vol] 28 mmol/L Normal 21 - 31 mmol/L [facility] - Hematology and Cell countsOrdered By: Leonid Leiva on 09-29-2022 HbA1c (Bld) [Mass fraction] 5.8 % Normal <=5.9% [facility] ChemAutoSS No Panel Informationon 09-29 11 {mEq/L} Normal 6-16 [facility] k [address] DO Work Phone: 101 mmol/L Normal 101-111 [facility] k 600 DO Work Phone: 3.8 mmol/L Normal 3.5-5.3 [facility] k 600 DO Work Phone: 136 mmol/L Normal 135-145 [facility] k 600 DO Work Phone: [phone] 8.9 mg/dL Normal 8.9-11.1 [facility] k 600 DO Work Phone: 24 {No_Units} above high threshold 10-20 [facility] k 600 DO Work Phone: 0.7 mg/dL Normal 0.5-1.3 [facility] DO Work Phone: 17 mg/dL Normal 5-21 [facility] 600 DO Work Phone: 107 mg/dL Normal 55-199 [facility] [employer] DO Work Phone: Comment on above: If this glucose resu lt represents a fasting glucose, interpretation should refer to the following reference range: 55-99 mg/dL >60 Normal >=59 [facility] [employer] DO Work Phone: Comment on above: eGFR is race adjuste d. AA=. Chronic kidney disea se could be indicated at eGFR's of less than 60 mL/min/1.73m2. Kidney failure is indicated at less than 15 mL/min/1.73m2. Falls Screening (Age 18+)on 09-28-2022 Fall risk assessment a) No falls within the last year [facility] [employer] DO Work Phone: Office Visit (Cardiology)on 09-28-2022 Follow-up visit Diagnoses/Problems Assessed Essential hypertension (401.9) (I10) Morbid obesity with BMI of 40.0-44.9, adult (278.01,V85.41) (E66.01,Z68.41) Orders Essential hypertension, Hyperlipidemia, Morbid obesity with BMI of 40.0-44.9, adult, Screening for diabetes mellitus Hemoglobin A1C; Status:Active - Retrospective Authorization; Requested for:[id number]; Essential hypertension, Non-ischemic cardiomyopathy Basic Metabolic Panel; Status:Active - Retrospective Authorization; Requested for:[id number]; Hyperlipidemia, Screening for diabetes mellitus Glucose, Fasting; Status:Active - Retrospective Authorization; Requested for:[id number]; Chief Complaint PHU LOPEZ is being seen [...] DAILY. Multi-Vitamin Oral TabletTAKE 1 TABLET DAILY. [place]-3 [place]KE DIRECTED. PARoxetine HCl - 20 MG [...] Signs Patient: PHU LOPEZ; : 1955; Recorded: [id number] 12:04PMRecorded: 14Tsf8580 11:58AMRecorded: 82Kwm6274 11:57AM Pwukrium061765, LUE, Shyymap220, RUE, Sitting Kvacbpwho9557, LUE, Gcvwaxv29, RUE, Sitting Heart Rate80, R Radial Height5 ft 10 in Fmzkdb123 lb BMI Aqkenijtik77.89 kg/m2 BSA Calculated2.43 Falls Screening (Age 18+)a) No falls within the last year Normal [facility] Office Visit (Cardiology)on 09-10-2022 Follow-up visit Diagnoses/Problems [...] Weight Tips; Status:Complete - Retrospective Authorization; Done: [id number] Some eating tips that can help you [...] 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 He reports no symptoms of dyspnea or [...] has been very compliant Delores Ac MD, [facility] Surgical History Problems History of Complete colonoscopy [...] DAILY. Multi-Vitamin Oral TabletTAKE 1 TABLET DAILY. [place]-3 CAPSTAKE DIRECTED. PARoxetine HCl - 20 MG [...] Recorded: 10Sep2022 10:02AM Heart Rate88, L Radial Pdzfimza518, RUE, Sitting Bmzsmxmxd71, RUE, Sitting Height5 ft 10 in Bdrrkk473 lb BMI Vjutmwvths22.32 kg/m2 BSA Calculated2.44 Tobacco Useb) No PHQ-2 #1. Over the last 2 weeks have you felt down, depressed or hopeless? (If yes, answer PHQ-9 below)No PHQ-2 #2. Over the last 2 weeks have you felt little i (more content not included)... Normal [facility] Tobacco Screening.on 023 Adult depression screening assessment No [facility] [employer] [address] DO Work Phone: Fall risk assessment a) No falls within the last year [facility] [employer] 600 DO Work Phone: Tobacco use status CP b) No [facility] [employer] 600 DO Work Phone: Chay 04-27-2022 L -- ---- Specimen: [id number] Received: 04/27/22 Status: HALLIE Kassi Num: [id number] Spec Type: Surgical Subm Dr: Luiz Morrison MD Tissues: A Prostate - Tur (PROSTATE TURP) Procedures: LISSETH Tavares/8, Gross/Micro L4 ---- Age/ Patient Sex Location Account Attending Physician ---- Ivanna Lopeznt Chuckie 67/M [place] [id number] Luiz Morrison MD ---- SPEC NUM: [id number] RECD: 04/27/22 STATUS: HALLIE [place] NUM: [id number] CHAIM: 04/27/[address] [facility] [address]: Luiz Morrison MD ENTERED: 04/27/[address]: SPEC TYPE: Surgical DEPT: S ORDERED: HE Stain/8, Gross/Micro L4 ORDERED: HE Stain/8, Gross/Micro L4 Supplemental Report Addendum 1 Entered: 05/03/22 PIN cocktail immunohistochemical study has been performed on block A1. No definite evidence of malignancy identified on the area of concern. [id number] Addendum Signed (signature on file) Landon Perez [...] result will follow supplement report. ---- Specimen: [id number] Received: 04/27/22 Status: HALLIE [place] Num: [id number] Spec Type: Surgical Subm Dr: Luiz Morrison MD Tissues: A Prostate - Tur (PROSTATE TURP) Procedures: LISSETH Stain/8, Gross/Micro L4 ---- Patient: Phu Lopez [id number] (Continued) ---- Specimen: [id number] Received: 04/27/22 (Continued) Signed (signature on file) Casa Desai MD (Michelle) 04/30/22 1044 ---- Specimen: [id number] Received: 04/27/22 Status: HALLIE [place] Num: [id number] Spec Type: Surgical Subm Dr: Luiz Morrison MD Tissues: A Prostate - Tur (PROSTATE TURP) Procedures: HE Stain/8, Gross/Micro L4 ---- Patient: Phu Lopez [id number] (Continued) ---- Specimen: [id number] Received: 04/27/22-1207 (Continued) Clinical Information BPH with obstruction Gross Description Received in formalin labeled with the patient's name, number and prostate is a 12 g, 6.5 x 5.0 x 2.5 cm aggregate of mooney-campuzano rubbery tissue fragments.. Entirely submitted in nine cassettes labeled A1-A9. Microscopic Description Nine glass slides with H E stained material have been examined. Pathologist interpretation was performed at [facility]. The microscopic findings support the above pathologic diagnosis. CPT Codes 67843 ---- ---- Specimen: [id number] Received: 04/27/22 Status: HALLIE [place] Num: [id number] Spec Type: Surgical Subm Dr: Luiz Morrison MD Tissues: A Prostate - Tur (PROSTATE TURP) Procedures: HE Stain/8, Gross/Micro L4 ---- Patient: Phu Lopez [id number] (Continued) ---- Signed (signature on file) Casa Desai MD (Michelle) 04/30/22 1044 Normal [facility] SARS-CoV-2 (COVID-19) RNA MARY+probe Ql (Unsp spec) Negative Normal Negative [facility] Comment on above: Order Comment: Healt hcare Worker?: N Result Comment: Testing for SARS-CoV-2 by RT-PCR This test was developed and its performance characteristics determined by [employer]) and validated at the [facility]. This test has not been FDA [...] is terminated or revoked sooner. PERFORMED BY: [place] [address] PATHOLOGIST SHIPPING CLERK CRATING TOI BOWER M.D. Performed By: #### C OVID 19 [facility] #### [address] COVID-19 Positive/NegativeOr dered By: Luiz Morrison on 04-23-2022 SARS-CoV-2 (COVID-19) N gene MARY+probe Ql (Resp) Negative Negative [facility] Comment on above: Testing for SARS-CoV -2 by RT-PCR This test was developed and its performance characteristics determined by [employer] ([employer]) and validated at the [facility]. This test has not been FDA [...] aPTT Coag (PPP) [Time] 29.4 s 25.1-36.5 [facility] Basic Metabolic Panelon Anion gap [Moles/Vol] 13.0 mmol/L Normal 6.0-15.0 [facility] Comment on above: Performed By: #### P T, PTT, CBC, BMP #### [facility] [address] Calcium [Mass/Vol] 9.4 mg/dL Normal 8.2-10.2 [facility] Comment on above: Result Comment: PERF ORMED BY: [place] [address] PATHOLOGIST SHIPPING CLERK CRATING TOI BOWER M.D. Performed By: #### P T, PTT, CBC, BMP #### [address] Chloride [Moles/Vol] 100 mmol/L Normal 95-114 [facility] Comment on above: Performed By: #### P T, PTT, CBC, BMP #### [address] CO2 [Moles/Vol] 26.6 mmol/L Normal 22.0-30.0 [facility] Comment on above: Performed By: #### P T, PTT, CBC, BMP #### [facility] [address] [place] [address] Creatinine [Mass/Vol] 0.60 mg/dL Low 0.64-1.27 [facility] Comment on above: Performed By: #### P T, PTT, CBC, BMP #### [facility] [address] [place] [address] [place] Estimated GFR ( Pilar > 60 Normal [facility] Comment on above: Result Comment: GFR estimated reference range: According to KDOQI guidelines, <60 ml/min/1.73m2 is sufficient to diagnose a patient with chronic kidney disease. Performed By: #### P T, PTT, CBC, BMP #### [address] [place] [address] [place] Estimated GFR (Non- Am > 60 Normal [facility] Comment on above: Performed By: #### P T, PTT, CBC, BMP #### [facility] [address] Glucose [Mass/Vol] 112 mg/dL High 70-100 [facility] Comment on above: Result Comment: [facility] Glucose Reference Range is dependent on time and content of last meal. Glucose of more than 200 mg/dL in a nonstressed, ambulatory subject supports the diagnosis of Diabetes Mellitus. ADA recommended reference range Performed By: #### P T, PTT, CBC, BMP #### [facility] [address] [place] [address] Potassium [Moles/Vol] 3.6 mmol/L Normal 3.5-5.1 [facility] Comment on above: Performed By: #### P T, PTT, CBC, BMP #### [facility] [address] [place] [address] Sodium [Moles/Vol] 136 mmol/L Normal 136-146 [facility] Comment on above: Performed By: #### P T, PTT, CBC, BMP #### [address] Urea nitrogen [Mass/Vol] 7 mg/dL Low 9-23 [facility] Comment on above: Performed By: #### P T, PTT, CBC, BMP #### [facility] [address] [place] [address] Basophils Auto (Bld) [#/Vol] Ordered By: Luiz Morrison on 04-13-2022 Basophils (Bld) [#/Vol] 0.0 10*3/uL 0.0-0.2 [facility] Basophils/100 WBC Auto (Bld) Ordered By: Luiz Morrison on 04-13-2022 Basophils/100 WBC (Bld) 0.5 % . F [facility] Blood hemoglobin measurement (mass/volume)Ordered By: Luiz Morrison on 04-13-2022 Hemoglobin (Bld) [Mass/Vol] 14.4 g/dL 13.0-17.0 [facility] Blood leukocytes automated c ount (number/volume)Ordered By: Luiz Morrison on 04-13-2022 WBC (Bld) [#/Vol] 7.0 10*3/uL 4.5-11.0 [facility] Complete Blood Count Auto Di ffon 04-13-2022 Basophils (Bld) [#/Vol] 0.0 10*3/uL Normal 0.0-0.2 [facility] Comment on above: Result Comment: PERF ORMED BY: [place] [address] PATHOLOGIST SHIPPING CLERK CRATING TOI BOWER M.D. Performed By: #### P T, PTT, CBC, BMP #### [address] Basophils/100 WBC (Bld) 0.5 % Normal . [facility] Comment on above: Performed By: #### P T, PTT, CBC, BMP #### [facility] [address] [place] [address] Eosinophils (Bld) [#/Vol] 0.2 10*3/uL Normal 0.0-0.45 [facility] Comment on above: Performed By: #### P T, PTT, CBC, BMP #### [address] Eosinophils/100 WBC (Bld) 2.4 % Normal . [facility] Comment on above: Performed By: #### P T, PTT, CBC, BMP #### [facility] [address] [place] [address] Erythrocyte distribution width (RBC) [Ratio] 13.3 % Normal 12.0-14.8 [facility] Comment on above: Performed By: #### P T, PTT, CBC, BMP #### [facility] [address] [place] [address] Hematocrit (Bld) [Volume fraction] 42.6 % Normal 38.8-50.0 [facility] Comment on above: Performed By: #### P T, PTT, CBC, BMP #### [facility] [address] Hemoglobin (Bld) [Mass/Vol] 14.4 g/dL Normal 13.0-17.0 [facility] Comment on above: Performed By: #### P T, PTT, CBC, BMP #### [address] Lymphocytes (Bld) [#/Vol] 1.2 10*3/uL Normal 1.00-4.8 [facility] Comment on above: Performed By: #### P T, PTT, CBC, BMP #### [address] Lymphocytes/100 WBC (Bld) 17.7 % Normal . [facility] Comment on above: Performed By: #### P T, PTT, CBC, BMP #### [address] MCH (RBC) [Entitic mass] 30.6 pg Normal 27.5-35.2 [facility] Comment on above: Performed By: #### P T, PTT, CBC, BMP #### [address] MCV (RBC) [Entitic vol] 90.7 fL Normal 83.5-101 F [facility] Comment on above: Performed By: #### P T, PTT, CBC, BMP #### [address] Mean Corpuscular HGB Conc 33.8 g/dL Normal 32.5-35.6 [facility] Comment on above: Performed By: #### P T, PTT, CBC, BMP #### [address] Monocytes (Bld) [#/Vol] 0.7 10*3/uL Normal 0.0-0.8 [facility] Comment on above: Performed By: #### P T, PTT, CBC, BMP #### [place] [address] [place] Monocytes/100 WBC (Bld) 9.7 % Normal . F [facility] Comment on above: Performed By: #### P T, PTT, CBC, BMP #### [place] [address] [place] Neutrophils (Bld) [#/Vol] 4.9 10*3/uL Normal 1.8-7.7 [facility] Comment on above: Performed By: #### P T, PTT, CBC, BMP #### [address] Neutrophils/100 WBC (Bld) 69.7 % Normal . [facility] Comment on above: Performed By: #### P T, PTT, CBC, BMP #### [address] Nucleated RBC/100 WBC (Bld) [Ratio] 0.0 % Normal 0-0.5 [facility] Comment on above: Performed By: #### P T, PTT, CBC, BMP #### [address] Platelet mean volume (Bld) [Entitic vol] 9.2 fL Normal 6.6-10.1 [facility] Comment on above: Performed By: #### P T, PTT, CBC, BMP #### [place] [address] [place] Platelets (Bld) [#/Vol] 265 10*3/uL Normal 150-450 [facility] Comment on above: Performed By: #### P T, PTT, CBC, BMP #### [address] RBC (Bld) [#/Vol] 4.70 10*6/uL Normal 3.90-5.60 [facility] Comment on above: Performed By: #### P T, PTT, CBC, BMP #### [place] [address] [place] WBC (Bld) [#/Vol] 7.0 10*3/uL Normal 4.5-11.0 [facility] Comment on above: Performed By: #### P T, PTT, CBC, BMP #### [address] Creatinine and Glomerular fi ltration rate.predicted panel (S/P/Bld)Ordered By: Luiz Morrison on 04-13-2022 Creatinine [Mass/Vol] 0.60 mg/dL 0.64-1.27 [facility] ECG 12 lead ECGon 04-13-2022 ECG 12 lead ECG [facility] Main [place] [address] [place] [address] Electrocardiograph Report Signed Patient: Phu Lopez MR#: [id number] : 1955 Acct:[id number] Age/Sex: 67 / M ADM Date: 04/13/22 [...] Signed By Roxie Gusman MD 1431 Normal [facility] Eosinophils Auto (Bld) [#/Vo l]Ordered By: Luiz Morrison on 04-13-2022 Eosinophils (Bld) [#/Vol] 0.2 10*3/uL 0.0-0.45 [facility] Eosinophils/100 WBC Auto (Bl d)Ordered By: Luiz Morrison on 04-13-2022 Eosinophils/100 WBC (Bld) 2.4 % . [facility] Erythrocyte distribution wid th Auto (RBC) [Ratio]Ordered By: Luiz Morrison on 04-13-2022 Erythrocyte distribution width (RBC) [Ratio] 13.3 % 12.0-14.8 [facility] Estimated glomerular filtrat ion rate (GFR) non- AmericanOrdered By: Luiz Morrison on 04-13-2022 GFR/1.73 sq M.predicted among non-blacks MDRD (S/P/Bld) [Vol rate/Area] > 60 mL/Min [facility] Hematocrit Auto (Bld) [Volum e fraction]Ordered By: Luiz Morrison on 04-13-2022 Hematocrit (Bld) [Volume fraction] 42.6 % 38.8-50.0 [facility] Laboratory - CoagulationOrde red By: Luiz Morrison on 04-13-2022 PT Coag (PPP) [Time] 10.8 s 9.0-12.9 [facility] - Hematology and Cell countsOrdered By: Luiz Morrison on 04-13-2022 Nucleated RBC/100 WBC (Bld) [Ratio] 0.0 % 0-0.5 [facility] Lymphocytes Auto (Bld) [#/Vo l]Ordered By: Luiz Morrison on 04-13-2022 Lymphocytes (Bld) [#/Vol] 1.2 10*3/uL 1.00-4.8 [facility] Lymphocytes/100 WBC Auto (Bl d)Ordered By: Luiz Morrison on 04-13-2022 Lymphocytes/100 WBC (Bld) 17.7 % . [facility] MCH Auto (RBC) [Entitic mass ]Ordered By: Luiz Morrison on 04-13-2022 MCH (RBC) [Entitic mass] 30.6 pg 27.5-35.2 [facility] MCHC Auto (RBC) [Mass/Vol]Or dered By: Luiz Morrison on 04-13-2022 MCHC (RBC) [Mass/Vol] 33.8 g/dL 32.5-35.6 [facility] MCV Auto (RBC) [Entitic vol] Ordered By: Luiz Morrison on 04-13-2022 MCV (RBC) [Entitic vol] 90.7 fL 83.5-101 F [facility] Monocytes Auto (Bld) [#/Vol] Ordered By: Luiz Morrison on 04-13-2022 Monocytes (Bld) [#/Vol] 0.7 10*3/uL 0.0-0.8 [facility] Monocytes/100 WBC Auto (Bld) Ordered By: Luiz Morrison on 04-13-2022 Monocytes/100 WBC (Bld) 9.7 % . F [facility] Neutrophils Auto (Bld) [#/Vo l]Ordered By: Luiz Morrison on 04-13-2022 Neutrophils (Bld) [#/Vol] 4.9 10*3/uL 1.8-7.7 [facility] Neutrophils/100 WBC Auto (Bl d)Ordered By: Luiz Morrison on 04-13-2022 Neutrophils/100 WBC (Bld) 69.7 % . [facility] No Panel InformationOrdered By: Luiz Morrison on 04-13-2022 Estimated GFR () > 60 mL/Min [facility] Comment on above: GFR estimated refere nce range: According to KDOQI guidelines, <60 ml/min/1.73m2 is sufficient to diagnose a patient with chronic kidney disease. Pharmacy Creatinine Clearance (Chem N/A [facility] Partial Thromboplastin Timeo n 04-13-2022 aPTT Coag (Bld) [Time] 29.4 s Normal 25.1-36.5 [facility] Comment on above: Result Comment: PERF ORMED BY: [place] [address] PATHOLOGIST SHIPPING CLERK CRATING TOI BOWER M.D. Performed By: #### P T, PTT, CBC, BMP #### [facility] [address] [place] [address] Platelet mean volume Auto (B ld) [Entitic vol]Ordered By: Luiz Morrison on 04-13-2022 Platelet mean volume (Bld) [Entitic vol] 9.2 fL 6.6-10.1 [facility] Platelet poor plasma interna tional normalized ratio (INR) by coagulation assay (relatOrdered By: Luiz Morrison on 04-13-2022 INR Coag (PPP) [Relative time] 1.0 {INR} [facility] Comment on above: INR Therapeutic Rang [...] 04-13-2022 Platelets (Bld) [#/Vol] 265 10*3/uL 150-450 [facility] Prothrombin Time INRon 04-13 INR Coag (PPP) [Relative time] 1.0 {INR} Normal [facility] Comment on above: Result Comment: INR [...] #### P T, PTT, CBC, BMP #### [facility] [address] PT Coag (PPP) [Time] 10.8 s Normal 9.0-12.9 [facility] Comment on above: Performed By: #### P T, PTT, CBC, BMP #### [facility] [address] RBC Auto (Bld) [#/Vol]Ordere d By: Luiz Morrison on 04-13-2022 RBC (Bld) [#/Vol] 4.70 10*6/uL 3.90-5.60 [facility] Serum or plasma anion gap de terminationOrdered By: Luiz Morrison on 04-13-2022 Anion gap [Moles/Vol] 13.0 mmol/L 6.0-15.0 [facility] Serum or plasma calcium anne urement (mass/volume)Ordered By: Luiz Morrison on 04-13-2022 Calcium [Mass/Vol] 9.4 mg/dL 8.2-10.2 [facility] Serum or plasma chloride neo surement (moles/volume)Ordered By: Luiz Morrison on 04-13-2022 Chloride [Moles/Vol] 100 mmol/L 95-114 [facility] Serum or plasma glucose anne urement (mass/volume)Ordered By: Luiz Morrison on 04-13-2022 Glucose [Mass/Vol] 112 mg/dL 70-100 [facility] Comment on above: ADA recommended refe rence range Random Glucose Reference Range is dependent on time and content of last meal. Glucose of more than 200 mg/dL in a nonstressed, ambulatory subject supports the diagnosis of Diabetes Mellitus. Serum or plasma potassium me asurement (moles/volume)Ordered By: Luiz Morrison on 04-13-2022 Potassium [Moles/Vol] 3.6 mmol/L 3.5-5.1 [facility] Serum or plasma sodium measu rement (moles/volume)Ordered By: Luiz Morrison on 04-13-2022 Sodium [Moles/Vol] 136 mmol/L 136-146 [facility] Serum or plasma total carbon dioxide measurement (moles/volume)Ordered By: Luiz Morrison on 04-13-2022 CO2 [Moles/Vol] 26.6 mmol/L 22.0-30.0 [facility] Serum or plasma urea nitroge n measurement (mass/volume)Ordered By: Luiz Morrison on 04-13-2022 Urea nitrogen [Mass/Vol] 7 mg/dL 9-23 [facility] CHEMISTRYOrdered By: Gabriel rendon on 04-01-2022 HbA1c (Bld) [Mass fraction] 5.3 % Normal <=5.9% [facility] ChemAutoSS Creatinine (Bld) [Mass/Vol]O rdered By: Luiz Morrison on 01-21-2022 Creatinine [Mass/Vol] 0.8 mg/dL 0.6-1.3 [facility] Comment on above: ER/ESD physician is notified/shown all ISTAT results. Critical values may be confirmed by laboratory testing if deemed necessary by ER attending doctor. No Panel InformationOrdered By: Luiz Morrison on 01-21-2022 POC Estimated GFR > 60 [facility] Comment on above: GFR estimated refere nce range: According to KDOQI guidelines, <60 ml/min/1.73m2 is sufficient to diagnose a patient with chronic kidney disease. POC Estimated GFR Non- Amer > 60 [facility] CHEMISTRYOrdered By: SYSTEM SYSTEM on 12-22-2021 [...] Normal >=59mL/min/ 1.73 m2 FT Chem S Globulin (S) [Mass/Vol] 3.8 g/dL [...] 4.4 E12/L Normal 4.3 - 5.9 E12/L [facility] HemeAutoSS WBC corrected for nucl RBC Auto (Bld) [#/Vol] 8.4 E9/L Normal 4.0 - 11.0 E9/L [facility] HemeAutoSS CHEMISTRYOrdered By: SYSTEM SYSTEM on 11-19-2021 Creatinine [Mass/Vol] 0.7 mg/dL Normal 0.5 - 1.3 mg/dL [facility] Remisol GFR/1.73 sq M.predicted among blacks MDRD (S/P/Bld) [Vol rate/Area] mL/min/1.73 m2 Normal >=59mL/min/ 1.73 m2 [facility] Chem S GFR/1.73 sq M.predicted among non-blacks MDRD (S/P/Bld) [Vol rate/Area] mL/min/1.73 m2 Normal >=59mL/min/ 1.73 m2 [facility] Chem S Tobacco Screening.on 022 Fall risk assessment a) No falls within the last year [facility] [employer] 600 DO Work Phone: Tobacco use status CPHS b) No M [facility] k 600 DO Work Phone: CORONAVIRUS 2019 BY PCRon SARS-CoV-2 (COVID-19) RNA MARY+probe Ql (Unsp spec) Not detected Normal Not Detected [facility] Comment on above: Result Comment: [...] this test method. Fact sheet for providers: https://www.fda.gov/media/937877/download Fact sheet for patients: https://www.fda.gov/media/524608/download This test has received FDA Emergency Use Authorization [EUA] and has been verified by [facility] ([facility]). This test is only authorized for the duration of time that circumstances exist to justify the authorization of the emergency use of in vitro diagnostic tests for the detection of SARS-CoV-2 virus and/or diagnosis of COVID-19 infection under section 564(b)(1) of the Act, 21 U.S.C. 360bbb-3(b)(1), unless the authorization is terminated or revoked sooner. [facility] is certified under CLIA-88 as qualified to perform high complexity testing. Testing is performed in the [facility] laboratories located at [address] [place] [address]. Performed By: #### C OV19 #### [address] [place] [address] Covid 19 Resultson 1 SARS-CoV-2 (COVID-19) RNA [...] [facility] to see if any of your close [...] or Naproxen (Aleve) can also be used. Vdek-awd-mztqyeo cough and cold medicines can be used according to the instructions on the package. Some vjxx-dsl-riwvfmw medicines also contain acetaminophen. Make sure you [...] water are not available, use alcohol-based hand import export coordinator. Avoid touching your eyes, nose, and mouth [...] for 24 matias (more content not included)... [facility] CORONAVIRUS 2019 BY PCRon DATE OF SYMPTOM ONSET [YYYYMMDD]? [id number] [facility] Comment on above: Performed By: #### C OV19 #### [facility] [address] [place] [address] Lab Specimen Source Nasal, Nasopharyngeal [facility] Comment on above: Performed By: #### C OV19 #### [facility] [address] [place] [address] Provider Note - ED v2on 08-0 Provider [...] SIGNS: T PRBP SpO2O2(LPM) %FiO2 Method 10-Mar-2021 13:09:[id number]/70 95 PHYSICAL EXAM CONSTITUTIONAL: Appearance: well appearing [...] with instruction (more content not included)... Normal [facility] CORONAVIRUS 2019 BY PCRon SARS-CoV-2 (COVID-19) RNA MARY+probe Ql (Unsp spec) Not detected Normal Not Detected [facility] Comment on above: Result Comment: [...] patient management decisions. Fact sheet for providers: https://www.fda.gov/media/358906/download Fact sheet for patients: https://www.fda.gov/media/335811/download This test has received FDA Emergency Use Authorization (EUA) and has been verified by [facility] ([facility]). This test is only authorized for the duration of time that circumstances exist to justify the authorization of the emergency use of in vitro diagnostic tests for the detection of SARS-CoV-2 virus and/or diagnosis of COVID-19 infection under section 564(b)(1) of the Act, 21 U.S.C. 360bbb-3(b)(1), unless the authorization is terminated or revoked sooner. [facility] is certified under CLIA-88 as qualified to perform high complexity testing. Testing is performed in the [facility] laboratories located at [address] [place] [address]. Performed By: #### C OV19 #### [address] [place] [address] Covid 19 Resultson 1 SARS-CoV-2 (COVID-19) RNA [...] [facility] to see if any of [...] or Naproxen (Aleve) can also be used. Adgp-qja-zubzofu cough and cold medicines can be used according to the instructions on the package. Some kffb-vie-ofjjurs medicines also contain acetaminophen. Make sure you [...] water are not available, use alcohol-based hand import export coordinator. Avoid touching your eyes, nose, and mouth [...] like ibuprofen (Motrin) (more content not included)... [facility] CORONAVIRUS 2019 BY PCRon DATE OF SYMPTOM ONSET [YYYYMMDD]? [id number] [facility] Comment on above: Performed By: #### C OV19 #### [facility] [address] [place] [address] Lab Specimen Source Nasal, Nasopharyngeal [facility] Comment on above: Performed By: #### C OV19 #### [facility] [address] [place] [address] Provider Note - ED v2on Provider Note [...] and symptoms. Symptoms have been refractory to bcxd-zod-mymzhdm medications.. Triage Information: Most recent Vital Sign [...] Updated: 12-Sep-2020 09:08 by Emile Michelle (PAC) [facility] Provider Note - ED v2on 113 [...] SIGNS: T PRBP SpO2O2(LPM) %FiO2 Method 07-Jul-2020 13:05:[id number]/ 69 97 PHYSICAL EXAM CONSTITUTIONAL: Appearance: well [...] exam a (more content not included)... Normal [facility] URINE CULTURE,BACTERIALon URINE CULTURE,BACTERIAL PATIENT: JONO LOPEZ LOCATION: [facility]#: [id number] : 57 AGE: SEX: M ORDERED BY: CHRISS MARIE SOURCE: URINE COLLECTED: 07/07/20 14:07 ANTIBIOTICS AT CHAIM.: RECEIVED : 07/07/20 19:19 SITE: R E S U L T S URINE CULTURE,BACTERIAL FINAL 07/08/20 12:57 NO SIGNIFICANT GROWTH. [facility] Comment on above: Performed By: #### [facility] #### [facility] [address] [place] [address] OCT MACULA CIRRUS OU (BOTH E YES) [facility] Vital Signs Date Time Vital Sign Value Performing Clinician Facility 05-10-2024 09:24-0400 Body height 177.8 cm Liliana Waller MD Work Phone: [facility] 05-10-2024 09:24-0400 Body mass index (BMI) [Ratio] 42.62 kg/m2 Liliana Waller MD Work Phone: [facility] 05-10-2024 09:24-0400 Body temperature 98.2 [degF] Liliana Waller MD Work Phone: [facility] 05-10-2024 09:24-0400 Body weight 134.72 kg Liliana Waller MD Work Phone: [facility] 05-10-2024 09:24-0400 Diastolic blood pressure 68 mm[Hg] Liliana Waller MD Work Phone: [facility] 05-10-2024 09:24-0400 Heart rate 67 /min Liliana Waller MD Work Phone: [facility] 05-10-2024 09:24-0400 SaO2% (BldA) [Mass fraction] 97 % Liliana Waller MD Work Phone: [facility] 05-10-2024 09:24-0400 Systolic blood pressure 130 mm[Hg] Liliana Waller MD Work Phone: [facility] 05-07-2024 13:42-0400 Body height 177.8 cm [facility] 05-07-2024 13:42-0400 Body mass index (BMI) [Ratio] 41.7 kg/m2 [facility] 05-07-2024 13:42-0400 Body weight 131.99 kg [facility] 05-07-2024 13:42-0400 Diastolic blood pressure 69 mm[Hg] [facility] 05-07-2024 13:42-0400 Heart rate 78 /min [facility] 05-07-2024 13:42-0400 SaO2% (BldA) [Mass fraction] 96 % [facility] 05-07-2024 13:42-0400 Systolic blood pressure 148 mm[Hg] [facility] 03-12-2024 13:59-0400 Body height 177.8 cm [facility] 03-12-2024 13:59-0400 Body mass index (BMI) [Ratio] 40.7 kg/m2 [facility] 03-12-2024 13:59-0400 Body weight 128.82 kg [facility] 03-12-2024 13:59-0400 Diastolic blood pressure 69 mm[Hg] [facility] 03-12-2024 13:59-0400 Heart rate 75 /min [facility] 03-12-2024 13:59-0400 SaO2% (BldA) [Mass fraction] 94 % [facility] 03-12-2024 13:59-0400 Systolic blood pressure 140 mm[Hg] [facility] 09-30-2023 08:46-0500 Body height 177.8 cm Delores Ac MD Work Phone: [facility] 09-30-2023 08:46-0500 Body mass index (BMI) [Ratio] 42.04 kg/m2 Delores Ac MD Work Phone: [facility] 09-30-2023 08:46-0500 Body weight 132.9 kg Delores Ac MD Work Phone: [facility] 09-30-2023 08:46-0500 Diastolic blood pressure 60 mm[Hg] Delores Ac MD Work Phone: [facility] 02-23-2024 08:46-0500 Heart rate 76 /min Delores Ac MD Work Phone: [facility] 09-30-2023 08:46-0500 Systolic blood pressure 138 mm[Hg] Delores Ac MD Work Phone: [facility] 06-15-2023 13:25-0500 Diastolic blood pressure 90 mm[Hg] Luiz MORRISON [facility] 06-15-2023 13:25-0500 Mean blood pressure 110 mm[Hg] Luiz MORRISON [facility] 06-15-2023 13:25-0500 Systolic blood pressure 150 mm[Hg] Luiz MORRISON [facility] 06-15-2023 13:20-0500 Blood Pressure Location Luiz MORRISON [facility] 06-15-2023 13:20-0500 Diastolic blood pressure 94 mm[Hg] Luiz MORRISON [facility] 06-15-2023 13:20-0500 Heart rate 83 /min Luiz MORRISON [facility] 06-15-2023 13:20-0500 Systolic blood pressure 150 mm[Hg] Luiz MORRISON [facility] 02-21-2023 13:30-0400 Body height 172.72 cm Burak Rangel Other [employer] Other 02-21-2023 13:30-0400 Body mass index (BMI) [Ratio] 44.55 kg/m2 Burak Rangel Other [employer] [facility] 02-21-2023 13:30-0400 Body weight 132.9 kg Burak Rangel Other [employer] Other 02-21-2023 13:30-0400 Diastolic blood pressure 71 mm[Hg] Burak Rangel Other [employer] Other 02-21-2023 13:30-0400 SaO2% (BldA) [Mass fraction] 96 % Burak Rangel Other [employer] Other 02-21-2023 13:30-0400 Systolic blood pressure 167 mm[Hg] Burak Rangel Other [employer] Other 11-03-2022 15:48-0400 Blood Pressure Location Luiz MORRISON [facility] 11-03-2022 15:48-0400 Diastolic blood pressure 76 mm[Hg] Luiz MORRISON [facility] 11-03-2022 15:48-0400 Heart rate 76 /min Luiz MORRISON [facility] 11-03-2022 15:48-0400 Systolic blood pressure 138 mm[Hg] Luiz MORRISON [facility] 09-28-2022 12:04-0500 Diastolic blood pressure 60 mm[Hg] Terri Powellsop Work Phone: [facility] [employer] 600 DO Work Phone: 09-28-2022 12:04-0500 Systolic blood pressure 118 mm[Hg] Terri Allsop Work Phone: [facility] [employer] 600 DO Work Phone: 09-28-2022 11:58-0500 Diastolic blood pressure 42 mm[Hg] Terri Allsop Work Phone: [facility] 600 DO Work Phone: 09-28-2022 11:58-0500 Systolic blood pressure 118 mm[Hg] Terri Allsop Work Phone: [facility] 600 DO Work Phone: 09-28-2022 11:57-0500 Body height 177.8 cm Terri Allsop Work Phone: [facility] 600 DO Work Phone: 09-28-2022 11:57-0500 Body mass index (BMI) [Ratio] 40.89 kg/m2 Terri Allsop Work Phone: [facility] 600 DO Work Phone: 09-28-2022 11:57-0500 Body surface area Derived from formula 2.43 m2 Terri Allsop Work Phone: [facility] [employer] 600 DO Work Phone: 09-28-2022 11:57-0500 Body weight 129.28 kg Terri Allsop Work Phone: [facility] [employer] 600 DO Work Phone: 09-28-2022 11:57-0500 Diastolic blood pressure 44 mm[Hg] Terri Allsop Work Phone: [facility] 600 DO Work Phone: 09-28-2022 11:57-0500 Heart rate 80 /min Terri Allsop Work Phone: [facility] 600 DO Work Phone: 09-28-2022 11:57-0500 Systolic blood pressure 120 mm[Hg] Terri Powellsop Work Phone: [facility] 600 DO Work Phone: 09-10-2022 10:02-0500 Body height 177.8 cm Terri Powellsop Work Phone: [facility] 600 DO Work Phone: 09-10-2022 10:02-0500 Body mass index (BMI) [Ratio] 41.32 kg/m2 Terri Powellsop Work Phone: [facility] 600 DO Work Phone: 09-10-2022 10:02-0500 Body surface area Derived from formula 2.44 m2 Terri Powellsop Work Phone: [facility] 600 DO Work Phone: 09-10-2022 10:02-0500 Body weight 130.64 kg Terri Rmp Work Phone: [facility] 600 DO Work Phone: 09-10-2022 10:02-0500 Diastolic blood pressure 70 mm[Hg] Terri Powellsop Work Phone: [facility] 600 DO Work Phone: 09-10-2022 10:02-0500 Heart rate 88 /min Terri Powellsop Work Phone: [facility] 600 DO Work Phone: 09-10-2022 10:02-0500 Systolic blood pressure 162 mm[Hg] Terri Powellsop Work Phone: [facility] 600 DO Work Phone: 06-24-2022 13:10-0500 Blood Pressure Location William Brush [facility] 06-24-2022 13:10-0500 Diastolic blood pressure 87 mm[Hg] William Mourany [facility] 06-24-2022 13:10-0500 Heart rate 91 /min William Mourany [facility] 06-24-2022 13:10-0500 Respiratory rate 21 /min William Mourany [facility] 06-24-2022 13:10-0500 SaO2% (BldA) [Mass fraction] 97 % William Mourany [facility] 06-24-2022 13:10-0500 Systolic blood pressure 152 mm[Hg] William Mourany [facility] 06-24-2022 13:05-0500 Blood Pressure Location William Mourany [facility] 06-24-2022 13:05-0500 Diastolic blood pressure 94 mm[Hg] William Mourany [facility] 06-24-2022 13:05-0500 Heart rate 91 /min William Mourany [facility] 06-24-2022 13:05-0500 Respiratory rate 24 /min William Mourany [facility] 06-24-2022 13:05-0500 SaO2% (BldA) [Mass fraction] 97 % William Mourany [facility] 06-24-2022 13:05-0500 Systolic blood pressure 164 mm[Hg] William Mourany [facility] 06-24-2022 13:00-0500 Heart rate 92 /min William Mourany [facility] 06-24-2022 13:00-0500 Respiratory rate 18 /min William Mourany [facility] 06-24-2022 13:00-0500 SaO2% (BldA) [Mass fraction] 96 % William Hernandezy [facility] 06-24-2022 13:00-0500 Systolic blood pressure 162 mm[Hg] William Brush [facility] 06-24-2022 12:40-0500 Body temperature 97.16 [degF] William Brush [facility] 06-24-2022 12:37-0500 Respiratory rate 20 /min William Hernandezy [facility] 06-24-2022 12:30-0500 Respiratory rate 20 /min William Brush [facility] 06-24-2022 12:25-0500 Respiratory rate 20 /min William Brush [facility] 06-24-2022 11:31-0500 Body temperature 97.16 [degF] William Brush [facility] 05-12-2022 08:06-0400 Blood Pressure Location Luiz MORRISON [facility] 05-12-2022 08:06-0400 Diastolic blood pressure 80 mm[Hg] Luiz MORRISON [facility] 05-12-2022 08:06-0400 Heart rate 80 /min Luiz MORRISON [facility] 05-12-2022 08:06-0400 Respiratory rate 16 /min Luiz MORRISON [facility] 05-12-2022 08:06-0400 Systolic blood pressure 151 mm[Hg] Luiz MORRISON [facility] 04-28-2022 11:54-0400 Body temperature 99.2 [degF] MD Terri Santos Work Phone: [facility] 04-28-2022 11:54-0400 Diastolic blood pressure 91 mm[Hg] MD Terri Santos Work Phone: [facility] 04-28-2022 11:54-0400 Heart rate 92 /min MD Terri Santos Work Phone: [facility] 04-28-2022 11:54-0400 Respiratory rate 18 /min MD Terri Santos Work Phone: [facility] 04-28-2022 11:54-0400 SaO2% (BldA) [Mass fraction] 92 % MD Terri Santos Work Phone: [facility] 04-28-2022 11:54-0400 Systolic blood pressure 173 mm[Hg] MD Terri Santos Work Phone: [facility] 04-28-2022 05:14-0400 Body weight 126.5 kg MD Terri Santos Work Phone: [facility] 04-27-2022 10:48-0400 Inhaled oxygen flow rate 6 L/min MD Terri Santos Work Phone: [facility] 04-27-2022 09:08-0400 Body height 180.34 cm MD Terri Santos Work Phone: [facility] 04-27-2022 09:08-0400 Body mass index (BMI) [Ratio] 37.6 kg/m2 MD Terri Santos Work Phone: [facility] 04-01-2022 10:10-0400 Blood Pressure Location Leonid WHITEHEAD [facility] [place] 04-01-2022 10:10-0400 Diastolic blood pressure 69 mm[Hg] Leonid NILL [facility] [place] 04-01-2022 10:10-0400 Heart rate 79 /min Leonid NILL [facility] [place] 04-01-2022 10:10-0400 Respiratory rate 16 /min Leonid NILL [facility] [place] 04-01-2022 10:10-0400 Systolic blood pressure 167 mm[Hg] Leonid NILL [facility] [place] 02-22-2022 14:45-0400 Body height 172.72 cm Burak Rangel Other [facility] Other 02-22-2022 14:45-0400 Body mass index (BMI) [Ratio] 45.08 kg/m2 Burak Gaypoli Other [facility] Other 02-22-2022 14:45-0400 Body temperature 97.5 [degF] Compajuan Rangel Other [facility] Other 02-22-2022 14:45-0400 Body weight 134.49 kg Compajuan Rangel Other [facility] Other 02-22-2022 14:45-0400 Diastolic blood pressure 75 mm[Hg] Burak Rangel Other [facility] Other 02-22-2022 14:45-0400 SaO2% (BldA) [Mass fraction] 96 % Compajuan Rangel Other [facility] [facility] Other 02-22-2022 14:45-0400 Systolic blood pressure 148 mm[Hg] Burak Rangel Other [facility] Other 12-22-2021 08:15-0400 Blood Pressure Location Luiz MORRISON [facility] [place] 12-22-2021 08:15-0400 Diastolic blood pressure 71 mm[Hg] Luiz MORRISON [facility] [place] 12-22-2021 08:15-0400 Heart rate 74 /min Luiz MORRISON [facility] 12-22-2021 08:15-0400 Systolic blood pressure 139 mm[Hg] Luiz MORRISON [facility] 12-11-2021 08:18-0400 Blood Pressure Location William Brush [facility] [place] 12-11-2021 08:18-0400 Diastolic blood pressure 77 mm[Hg] William Brush [facility] [place] 12-11-2021 08:18-0400 Heart rate 77 /min William Brush [facility] [place] 12-11-2021 08:18-0400 Systolic blood pressure 155 mm[Hg] William Brush [facility] [place] 11-04-2021 10:36-0400 Blood Pressure Location Luiz MORRISON [facility] [place] 11-04-2021 10:36-0400 Diastolic blood pressure 78 mm[Hg] Luiz MORRISON [facility] [place] 11-04-2021 10:36-0400 Heart rate 85 /min Luiz MORRISON [facility] [place] 11-04-2021 10:36-0400 Respiratory rate 16 /min Luiz MORRISON [facility] [place] 11-04-2021 10:36-0400 Systolic blood pressure 144 mm[Hg] Luiz MORRISON [facility] [place] 08-31-2021 15:23-0500 Diastolic blood pressure 60 mm[Hg] Terri Rmp Work Phone: [facility] [employer] 600 DO Work Phone: 08-31-2021 15:23-0500 Systolic blood pressure 130 mm[Hg] Terri Powellsop Work Phone: [facility] [employer] 600 DO Work Phone: 08-31-2021 15:08-0500 Body height 177.8 cm Terri Powellsop Work Phone: [facility] 600 DO Work Phone: 08-31-2021 15:08-0500 Body mass index (BMI) [Ratio] 40.89 kg/m2 Terri Powellsop Work Phone: [facility] 600 DO Work Phone: 08-31-2021 15:08-0500 Body surface area Derived from formula 2.43 m2 Terri Allsop Work Phone: [facility] 600 DO Work Phone: 08-31-2021 15:08-0500 Body weight 129.28 kg Terri Allsop Work Phone: [facility] 600 DO Work Phone: 08-31-2021 15:08-0500 Diastolic blood pressure 79 mm[Hg] Terri Allsop Work Phone: [facility] 600 DO Work Phone: 08-31-2021 15:08-0500 Heart rate 75 /min Terri Allsop Work Phone: [facility] 600 DO Work Phone: 08-31-2021 15:08-0500 Systolic blood pressure 144 mm[Hg] Terri Allsop Work Phone: [facility] 600 DO Work Phone: 03-10-2021 15:09-0400 Body height 177.8 cm Terri Allsop Other Phone: [facility] 03-10-2021 15:09-0400 Body temperature 98.42 [degF] Terri Allsop Other Phone: [facility] 03-10-2021 15:09-0400 Diastolic blood pressure 70 mm[Hg] Terri Allsop Other Phone: [facility] 03-10-2021 15:09-0400 Heart rate 82 /min Terri Allsop Other Phone: [facility] 03-10-2021 15:09-0400 SaO2% (BldA) [Mass fraction] 95 % Terri Powelllay Other Phone: [facility] 03-10-2021 15:09-0400 Systolic blood pressure 132 mm[Hg] Terri Tom Other Phone: [facility] Encounters Encounter Date Encounter Type Care Provider Facility Start: 05-10-2024 End: 05-10-2024 Lorenzo Waller MD Work Phone: [facility] Start: 05-10-2024 End: 05-10-2024 Lorenzo Waller MD Work Phone: [facility] Start: 05-10-2024 End: 05-10-2024 Office outpatient visit 25 minutes Liliana Waller MD Work Phone: [facility] Comment on above: Acute deep vein thro mbosis (DVT) of distal vein of right lower extremity (CMS/HCC) (Primary Dx); alf current use of anticoagulant; Cardiomyopathy, unspecified type (CMS/HCC); PVD (peripheral vascular disease) (CMS/HCC); Essential hypertension (CMS/HCC); BMI 40.0-44.9, adult (CMS/HCC); Morbid obesity (CMS/HCC) Start: 05-10-2024 End: 05-10-2024 ambulatory LILIANA WALLER Not Available Start: 05-07-2024 End: 05-07-2024 ambulatory [facility] Work Phone: Start: 05-07-2024 End: 05-07-2024 Patient encounter procedure [facility] Phys[facility] Work Phone: Start: 04-13-2024 End: 04-13-2024 ambulatory GUNNAR ADLER Not Available Start: 03-26-2024 End: 03-26-2024 ambulatory ADAM JACK Not Available Start: 03-12-2024 End: 03-12-2024 Patient encounter procedure [facility] Physician [facility] Work Phone: Start: 01-09-2024 End: 01-09-2024 ambulatory ADAM D DOLCE Not Available Start: 12-01-2023 End: 12-01-2023 ambulatory TERRI D ALLSOP Not Available Start: 11-25-2023 End: 11-26-2023 ambulatory Terri D Allsop Facility:[facility] Start: 11-25-2023 End: 11-25-2023 Patient encounter procedure Terri D Allsop [facility] Start: 11-17-2023 End: 11-17-2023 ambulatory TERRI D ALLSOP Not Available Start: 10-31-2023 End: 10-31-2023 ambulatory ADAM D DOLCE Not Available Start: 10-21-2023 End: 10-22-2023 ambulatory Terri D Allsop Facility:[facility] Start: 10-21-2023 End: 10-21-2023 Patient encounter procedure Terri D Allsop [facility] Start: 09-30-2023 End: 09-30-2023 Office outpatient visit 25 minutes Delores Ac MD Work Phone: [facility] Comment on above: Essential hypertensi on; Non-ischemic cardiomyopathy (CMS/HCC); Hyperlipidemia, unspecified hyperlipidemia type; Obstructive sleep apnea, adult; Morbid obesity with BMI of 40.0-44.9, adult (CMS/HCC) Start: 09-30-2023 End: 09-30-2023 ambulatory DELORES Noguera [facility] Start: 08-25-2023 End: 08-25-2023 ambulatory TERRI D ALLSOP Not Available Start: 08-22-2023 End: 08-22-2023 ambulatory ADAM D DOLCE Not Available Start: 06-15-2023 End: 06-16-2023 ambulatory Luiz MORRISON Facility:[facility] Start: 06-15-2023 End: 06-15-2023 Patient encounter procedure Luiz MORRISON [facility] [place] Start: 05-27-2023 End: 05-27-2023 ambulatory TERRI SANTOS Facility:[facility] Start: 04-30-2023 End: 05-01-2023 ambulatory Luiz MORRISON Facility:[facility] Start: 04-30-2023 End: 04-30-2023 Patient encounter procedure Luiz MORRISON [facility] Start: 02-21-2023 Office outpatient vi sit 15 minutes [facility] Start: 02-21-2023 End: 02-21-2023 ambulatory [facility] Work Phone: Start: 02-21-2023 End: 02-21-2023 Patient encounter procedure MD Terri Santos Work Phone: [facility] Work Phone: Start: 12-24-2022 End: 12-25-2022 ambulatory Terri Santos Facility:[facility] Start: 11-04-2022 Rx Renewal Terri greene Work Phone: [facility] 250 DO Work Phone: Start: 11-03-2022 End: 11-03-2022 Patient encounter procedure Luiz MORRISON [facility] Start: 09-29-2022 Chart Update Terri Powellso p Work Phone: [facility] 600 DO Work Phone: Start: 09-29-2022 End: 09-29-2022 Patient encounter procedure Delores Ac [facility] Start: 09-28-[address] Delores Ac Facility: Start: 09-28-2022 Office outpatient vi sit 10 minutes Terri Rmp [facility] 600 [facility] Work Phone: Start: 09-10-2022 Office outpatient vi sit 25 minutes Terri Powellsop Work Phone: [facility] DO Work Phone: Start: 09-10-2022 Patient encounter procedure Terri Powellsop Work Phone: [facility] Work Phone: Start: 09-10-[address] Terri Santos Facility: Start: 07-02-2022 Rx Renewal Terri Allso p Work Phone: [facility] 250 DO Work Phone: Start: 06-24-2022 End: 06-24-2022 Patient encounter procedure William Brush [facility] Start: 05-21-2022 End: 05-21-2022 Patient encounter procedure Catrachito Barton OD Work Phone: Ophthalmology Comment on above: Epiretinal membrane (ERM) of both eyes (Primary Dx); Floppy eyelid syndrome of both eyes; Combined forms of age-related cataract of both eyes; Posterior vitreous detachment of both eyes; Vitreous floaters of both eyes Start: 05-12-2022 End: 05-12-2022 Patient encounter procedure Luiz MORRISON [facility] [place] Start: 05-10-2022 Rx Renewal Terri Allso p Work Phone: [facility] 250 DO Work Phone: Start: 04-30-2022 End: 04-30-2022 Patient encounter procedure Luiz MORRISON [facility] Start: 04-27-2022 End: 04-28-2022 ambulatory Luiz Morrison Facility:[facility] Start: 04-27-2022 End: 04-28-2022 Admission to same day surgery center MD Terri Santos Work Phone: [facility] [place] Start: 04-23-2022 End: 04-23-2022 ambulatory Luiz Morrison Facility:[facility] Start: 04-23-2022 End: 04-23-2022 Patient encounter procedure MD Terri Santos Work Phone: [facility] Start: 04-13-2022 End: 04-13-2022 ambulatory Luiz Morrison Facility:[facility] Start: 04-13-2022 End: 04-13-2022 Patient encounter procedure MD Terri Santos Work Phone: [facility] Start: 04-01-2022 End: 04-01-2022 Lab Drop off Adam Jack [facility] Start: 04-01-2022 End: 04-01-2022 Patient encounter procedure Leonid WHITEHEAD [facility] [place] Start: 03-26-2022 End: 04-07-2022 Pre-admission assessment Milo Gonzales [facility] Start: 03-17-2022 End: 03-17-2022 Patient encounter procedure Luiz MORRISON [facility] Start: 03-02-2022 End: 03-02-2022 Patient encounter procedure Luiz MORRISON [facility] Start: 02-22-2022 End: 02-22-2022 ambulatory Burak Rangel Other [facility] [employer] Other Start: 02-22-2022 Office outpatient vi sit 15 minutes Burak Rangel [facility] Start: 02-22-2022 End: 02-22-2022 Patient encounter procedure MD Terri Santos Work Phone: [facility] Start: 01-21-2022 End: 01-21-2022 Patient encounter procedure MD Terri Santos Work Phone: [facility] [place] Start: 12-22-2021 End: 12-22-2021 Lab Drop off Luiz MORRISON [facility] Start: 12-22-2021 End: 12-22-2021 Patient encounter procedure Luiz MORRISON [facility] Start: 12-11-2021 End: 02-20-2022 Pre-admission assessment William Brush [facility] Start: 12-11-2021 End: 12-11-2021 Patient encounter procedure William Brush [facility] [place] Start: 12-10-2021 End: 12-10-2021 Patient encounter procedure Belinda GIL [facility] Start: 12-08-2021 End: 12-08-2021 Patient encounter procedure Luiz MORRISON [facility] Start: 12-01-2021 End: 12-01-2021 Patient encounter procedure Luiz MORRISON [facility] Start: 11-19-2021 End: 11-19-2021 Patient encounter procedure Luiz MORRISON [facility] Start: 11-04-2021 End: 11-04-2021 Patient encounter procedure Luiz MORRISON [facility] Start: 08-31-2021 Office outpatient vi sit 25 minutes Terri Santos Work Phone: [facility] [email or web address] 600 DO Work Phone: Start: 06-10-2021 Rx Renewal Terri greene Work Phone: [facility] [email or web address] 600 DO Work Phone: Start: 03-10-2021 End: 03-10-2021 Emergency department patient visit Chriss Marie [facility] Start: 04-11-2018 End: 04-11-2018 Emergency department patient visit [facility] Facility:[facility] Procedures Date Procedure Procedure Detail Performing Clinician Start: 06-24-2022 Colonoscopy Delores whitney MD Work Phone: Start: 06-24-2022 Colonoscopy William alvarez Start: 05-21-2022 Computerized ophthal indy imaging retina Catrachito Barton OD Work Phone: Start: 04-27-2022 Transurethral prostatectomy MD Terri Santos Work Phone: Start: 04-27-2022 Transurethral prostatectomy Luiz MORRISON Start: 01-21-2022 MR prostate wo/w alize Santos Work Phone: Start: 01-21-2022 MRI-US fusion guided prostate biopsy Luiz MORRISON Start: 12-08-2021 Urodynamic studies Ericka dialsteven MORRISON Start: 10-08-2011 Colonoscopy Catrachito mccullough OD Work Phone: Start: 10-08-2011 Colonoscopy Luiz CARREON TERJassi Start: 08-10-2011 Colonoscopy Luiz CARREON TERS Hemorrhoid operation Luiz MORRISON Hemorrhoidectomy Terri Shah Work Phone: Tonsillectomy Luiz MORRISON Total colonoscopy Terri Toney llsobritt Work Phone: Plan of Treatment Date Care Activity Detail Author Start: 09-03-2033 DTaP/Tdap/Td Vaccine s (2 - Td or Tdap) DTaP/Tdap/Td Vaccines (2 - Td or Tdap) [facility] Start: 06-24-2032 Screening for malign ant neoplasm of colon [facility] Start: 11-08-2024 End: 11-08-2024 Patient encounter procedure 11/08/2024 9:00 AM EDT Office Visit [facility] [address] [place] [phone] Liliana Waller MD [address] [place] [address] [facility] Start: 09-25-2024 End: 09-25-2024 Patient encounter procedure 09/25/2024 9:00 AM EST Office Visit [place] [address] [place] [phone] Delores Ac MD [address] [facility] [address] [place] [address] [facility] Start: 06-20-2024 ambulatory Ambulatory Facility:[facility] Start: 06-04-2024 End: 06-04-2024 Patient encounter procedure 06/04/2024 8:00 AM EDT Procedure Visit [facility] [address] [place] [phone] Adam Jack, DPM FACFAS [address] [place] [address] [facility] Start: 05-10-2024 End: 05-10-2024 Patient encounter procedure 05/10/2024 9:20 AM EDT Office Visit [facility] [address] [place] [phone] Liliana Waller MD [address] [place] [address] [facility] on above: Arrived Start: 04-08-2024 Influenza vaccination Influenza Vacc ine (#1) [facility] Start: 10-29-2023 Zoster Vaccines (2 of 2) Zoste r Vaccines (2 of 2) [facility] Start: 09-30-2023 FUV, Provider: Delores Ac, Status: Pen, Time: 9:00 AM FUV, Provider: Delores Ac, Status: Pen, Time: 9:00 AM [facility] 600 DO Work Phone: Start: 04-08-2023 COVID-19 Vaccine ( season) COVID-19 Vaccine ( season) [facility] Start: 09-28-2022 NURSEVST, Provider: ISHA TRINIDAD [employer] 1,[id number], Status: Pen, Time: 11:30 AM NURSEVST, Provider: ISHA TRINIDAD [employer] 1,[id number], Status: Pen, Time: 11:30 AM [facility] 600 DO Work Phone: Start: 08-31-2022 FUV, Provider: Delores Ac, Status: Pen, Time: 8:40 AM FUV, Provider: Delores Ac, Status: Pen, Time: 8:40 AM [facility] 600 DO Work Phone: Start: 08-03-2022 Pneumococcal Vaccine : 65+ Years (2 - PCV) Pneumococcal Vaccine: 65+ Years (2 - PCV) [facility] Start: 04-28-2022 [facility] Work Phone: Start: 04-27-2022 Hospital admission [facility] Work Phone: Start: 04-08-2022 Influenza vaccination INFLUENZA (#1) [facility] Start: 01-21-2022 MR prostate wo/w con MR prostate wo/ w con [facility] Start: 10-05-2021 COVID-19 VACCINE (4 - Booster for Moderna series) COVID-19 VACCINE (4 - Booster for Moderna series) [facility] Start: 08-08-2021 ADVANCE DIRECTIVE DISCUSSION ADVANCE DIRECTIVE DISCUSSION [facility] Start: 08-08-2021 DEPRESSION ASSESSMENT DEPRESSION ASS ESSMENT [facility] Start: 07-10-2021 STACIA, Provider : Delores Ac, Status: Pen, Time: 10:10 AM FUVRESULTS, Provider: Delores Ac, Status: Pen, Time: 10:10 AM [facility] 600 DO Work Phone: Start: 01-01-2021 PNEUMOCOCCAL: 65+ (1 - PCV) PNEUMOCOCCAL: 65+ (1 - PCV) [facility] Start: 10-07-2012 Colonoscopy COLONOSCOPY [facility] Start: 10-07-2012 COLORECTAL CANCER SCREENING COLORECTAL CANCER SCREENING [facility] Start: 01-01-2011 PROSTATE CANCER SCREENING DISCUSSION PROSTATE CANCER SCREENING DISCUSSION [facility] Start: 01-01-2006 SHINGRIX VACCINE (1 of 2) SHINGRIX VACCINE (1 of 2) [facility] Start: 01-01-2001 COLOGUARD (FIT-DNA) COLOGUARD (FIT-D NA) [facility] Start: 01-01-[address] COLONOGRAPHY [facility] Start: 01-01-2001 DIABETES SCREEN DIABETES SCREEN [facility] Start: 01-01-2001 FECAL OCCULT BLOOD FECAL OCCULT BLOO D [facility] Start: 01-01-2001 SIGMOIDOSCOPY [facility] Start: 01-01-1991 LIPID SCREEN LIPID SCREEN [facility] Start: 01-01-1975 Urine microalbumin profile DTAP,TDAP,TD (1 - Tdap) [facility] Start: 01-01-1974 Diabetes mellitus screening Diabetes Screening [facility] Start: 01-01-1974 HEPATITIS C SCREENING HEPATITIS C [facility] Start: 01-01-1974 Hepatitis C screening Hepatitis C [facility] Start: 1956 Lipid panel Lipid Panel [facility] Start: 1956 Screening for malign ant neoplasm of colon [facility] Start: 1956 Yearly Adult [facility] Immunization Date Immunization Notes Care Provider [facility] 04-14-2024 influenza virus vacc ine, unspecified formulation Liliana Waller MD Work Phone: [facility] 05-19-2023 influenza virus vacc ine, unspecified formulation Luiz MORRISON [facility] 05-19-2023 Influenza, High-dose Seasonal, Quadrivalent, Preservative Free Liliana Waller MD Work Phone: [facility] 05-27-2022 Fluzone High-Dose Quadrivalent 0.7 ML Intramuscular Suspension Prefilled Syringe Terri Allsop Work Phone: [facility] 600 DO Work Phone: 05-27-2022 influenza virus vacc ine, unspecified formulation Luiz MORRISON [facility] 08-10-2021 Moderna COVID-19 Vac cine 100 MCG/0.5ML Intramuscular Suspension Terri Allsop Work Phone: [facility] 08-08-2021 SARS-CoV-2 (COVID-19 ) [id number] vaccine Luiz MORRISON [facility] Comment on above: Result Comment: [facility] 08-03-2021 Fluzone High-Dose Quadrivalent 0.7 ML Intramuscular Suspension Prefilled Syringe Terri Allsop Work Phone: [facility] 600 DO Work Phone: 08-03-2021 influenza virus vacc ine, unspecified formulation Luiz MORRISON [facility] 08-03-2021 pneumococcal polysaccharide vaccine, 23 valent Terri Allsop [facility]: [facility] 600 DO Work Phone: 2021 Moderna COVID-19 Vac cine 100 MCG/0.5ML Intramuscular Suspension Terri Allsop Work Phone: [facility] 600 DO Work Phone: 12-05-2020 Moderna COVID-19 Vac cine 100 MCG/0.5ML Intramuscular Suspension Terri Allsop Work Phone: [facility] 600 DO Work Phone: 06-26-2020 influenza virus vacc ine, unspecified formulation Luiz MORRISON [facility] 06-26-2020 influenza, injectabl e, quadrivalent, preservative free Terri Allsop Work Phone: [facility] 600 DO Work Phone: 06-16-2019 influenza virus vacc ine, unspecified formulation Luiz MORRISON [facility] 06-16-2019 seasonal influenza, intradermal, preservative free Terri Allsop Work Phone: [facility] 600 DO Work Phone: 06-08-2019 influenza virus vacc ine, unspecified formulation Luiz MORRISON [facility] 06-08-2019 influenza, seasonal, injectable Terri Allsop Work Phone: [facility] 600 DO Work Phone: 06-07-2019 influenza virus vacc ine, unspecified formulation Luiz MORRISON [facility] 05-08-2018 influenza virus vacc ine, unspecified formulation Terri Allsop Work Phone: [facility] 600 DO Work Phone: 06-08-2016 influenza virus vacc ine, unspecified formulation Terri Allsop Work Phone: [facility] 600 DO Work Phone: 06-08-2016 pneumococcal polysaccharide vaccine, 23 valent Terri Allsop Work Phone: [facility] 600 DO Work Phone: 05-16-2015 influenza virus vacc ine, unspecified formulation Terri Allsop Work Phone: [facility] 600 DO Work Phone: 06-22-2013 influenza virus vacc ine, unspecified formulation Terri Allsop Work Phone: [facility] 600 DO Work Phone: 06-21-2013 pneumococcal polysaccharide vaccine, 23 valent Terri Allsop Work Phone: [facility] 600 DO Work Phone: 05-01-2012 influenza virus vacc ine, whole virus Terri Powellsop Work Phone: [facility] 600 DO Work Phone: 05-01-2012 influenza, whole Luiz ANDREW ERS [facility] influenza virus vacc ine, unspecified formulation Terri Allsop Work Phone: [facility] 600 DO Work Phone: Comment on above: 2011 2006 Payers Date Payer Category Payer Self-pay [id number] 2018 Unknown 2014 Unknown [id number] 1956 Unknown [id number] 2.16. [id number] 1956 Unknown [id number] 2.16. [id number] 1956 Unknown [id number] 2.16.8 [id number] 1956 Unknown [id number] 2.16.8 [id number] 1956 Unknown [id number] 2.16.8 [id number] 1956 Unknown [id number] 2.16.8 [id number] 1956 Unknown [id number] 2.16.8 [id number] 1956 Unknown [id number] 2.16.8 [id number] 1956 Unknown [id number] 2.16.8 [id number] 1956 Unknown [id number] 2.16.84 [id number] 1955 Unknown [id number] 2.16.84 0.1.473281.3.579.2.1258 1955 Unknown [id number] 2.16.84 0.1.567477.3.579.2.1258 1955 Unknown [id number] 2.16.84 0.1.927372.3.579.2.1258 1955 Unknown [id number] 2.16.84 0.1.195389.3.579.2.9 1955 Unknown [id number] 2.16.84 0.1.724961.3.579.2.1258 1955 Unknown [id number] 2.16.84 0.1.876284.3.579.2.1258 1955 Unknown [id number] 2.16.84 0.1.276892.3.579.2.1258 1955 Unknown [id number] 2.16.84 0.1.302505.3.579.2.1259 Unknown [id number] 2.16.8 40.1.630018.3.579.2.531 Unknown [id number] 2.16.8 40.1.521612.3.579.2.531 Unknown [id number] 2.16.8 40.1.152416.3.579.2.531 Unknown [id number] 2.16.8 40.1.296815.3.579.2.531 Social History Date Type Detail Facility [facility] Tobacco smoking consumption unknown [facility] Start: 09-30-2023 End: 05-10-2024 Caffeine use Caffeine use -[place] [address] DO Work Phone: Start: 11-04-2021 End: 01-04-2023 Tobacco smoking status Never smoked tobacco (finding) [facility] Tobacco smoking status Ex-smoker (finding ) [facility] Tobacco smoking status Never [facility] Start: 09-30-2023 End: 05-10-2024 Sex Assigned At Male [facility] Start: 1955 Sex Assigned At Male [facility] Start: 04-12-2018 End: 01-04-2023 Tobacco use and exposure Smokeless tobacco non-user [facility] Start: 05-21-2022 End: 05-10-2024 Alcohol intake Lifetime non-drinker (finding) [facility] Start: 08-27-2019 History SDOH Alcohol Frequency 1 [facility] Start: 1955 Sex Assigned At Not on file [facility] Start: 05-11-2022 End: 09-30-2023 Exposure to SARS-CoV-2 (event) Not sure [facility] Start: 01-03-2023 Alcohol Comment caffeine: 2-3 cups per day [facility] Goals Date Patient Goal Desired Activity /State Functional Status Date Assessment Result Facility 06-15-2023 Functional Status N/A [facility] 11-03-2022 Functional Status N/A [facility] 06-24-2022 Functional Status N/A [facility] 05-12-2022 Functional Status N/A [facility] 04-28-2022 Functional status Patient at Baseline [facility] Work Phone: 04-01-2022 Functional Status N/A [facility] [place] 03-17-2022 Functional Status N/A [facility] Mental Status Date Assessment Result Facility 04-28-2022 Cognitive function Cognitive Sta tus Patient at Baseline [facility] Work Phone: Clinical Notes 08-15-2020 to 05-10-2024 Liliana Waller MD - 05/10/2024 9:20 AM Arlette Ac MD - 09/30/2023 9:00 AM ESTPatient Instructions Note Date & Type Note Facility 05-10-2024 History of Present illness Narrative Images from the original note were not included. Subjective Patient ID: Phu Lopez is a 69 y.o. male who presents for Follow-up. HPI Pt here for follow up. Was recently diagnosed with DVT of the RLE. Has been taking Eliquis and is tolerating it without side effects. Is following with vascular - recently had procedure done on saphenous vein and plans to have other less severe veins done. Has upcoming follow up. HTN - denies sx of high or low BP. Denies side effects of meds. Review of Systems General: Denies fever, chills, fatigue, SAVAGE or weight loss/gain CV: Denies CP, palpitations or swelling in legs Resp: denies cough, SOB or wheezing GI: Denies abd pain/n/v/c/d Skin: Denies rash Neuro: Denies LH or dizziness Objective Blood pressure 130/68, pulse 67, temperature 98.2 F, height 5' 10 , weight 297 lb, SpO2 97%. Body mass index is 42.62 kg/m . Physical Exam General: alert & oriented, NAD Head: NC/AT Oral Cavity: MMM Skin: warm, dry Heart: RRR, No m/r/g, S1S2 nml Lungs: CTA b/l Abdomen: soft, ND/NT, BS wnl Musculoskeletal: normal gait Extremities: no clubbing, cyanosis, b/l edema R>L Neurological: nonfocal Psych: mood/affect full range Assessment/Plan Phu was seen today for follow-up. Diagnoses and all orders for this visit: Acute deep vein thrombosis (DVT) of distal vein of right lower extremity (CMS/HCC) (Primary) Stable, continue to monitor. No change in regimen. Continue to follow w/ vascular long term care social worker current use of anticoagulant Cardiomyopathy, unspecified type (CMS/HCC) Stable, continue to monitor. No change in regimen. PVD (peripheral vascular disease) (CMS/HCC) Stable, continue to monitor. No change in regimen. Continue to follow w/ vascular Essential hypertension (CMS/HCC) Stable, continue to monitor. No change in regimen. BMI 40.0-44.9, adult (CMS/HCC) Morbid obesity (CMS/HCC) - continue to monitor weight documented in this encounter [facility] 09-30-2023 History of Present illness Narrative Subjective [...] has been very compliant Delores Ac MD[facility] Review of Systems All other systems reviewed [...] Morbid obesity with BMI of 40.0-44.9, adult ([facility]) Scribe Attestation By signing my name below, I, nicholeJulieta de la garza attest that this documentation has been prepared [...] discussion and plan. documented in this encounter [facility] Work Phone: 09-30-2023 Instructions Kitty Estes [...] Increase physical activity. documented in this encounter [facility] Work Phone: 06-15-2023 Hospital Discharge instructions [...] urethra. Follow these instructions at home: Take murf-vxs-mturddx and prescription medicines only as told by [...] provider. Document Revised: 02/10/2022 Document Reviewed: 02/10/2022 [employer] Patient Education 2022 [employer]. Follow Up Care 11/03/2022 16:39:32 With:TAMIKO SAEZ, Luiz Jackson, URL Address: [facility] [address], [place] [address]- When: Unknown [facility] 05-27-2023 Note HNO ID: [id number] Author: Josselin Decker MD Service: ? Author [...] about the findings, diagnosis, and treatment options. [facility] 02-21-2023 Evaluation note Encounter Date Diagnosis Assessment Notes Feb, Obstructive sleep apnea (ICD-10 - G47.33) Patient was encouraged to continue his CPAP regularly, work on losing weight, monitor his blood pressure regularly and keep a record of his readings to review with his sports therapist, asked him to report any difficulties or issues with his treatment, DOS otherwise we will see him for follow-up in 1 year Feb, Hypertension, unspecified type (ICD-10 - I10) [facility] Other 03-29-2023 Hospital Discharge instructions Patient Education [...] urethra. Follow these instructions at home: Take zajc-hat-lubrjav and prescription medicines only as told by [...] 07/25/2006 Document Revised: 06/19/2019 Document Reviewed: 08/29/2017 [employer] Patient Education 2020 [employer]. Follow Up Care 07/29/2022 09:30:30 With:TAMIKO SAEZ, Luiz Jackson, URL Address: [facility] [address] , [place] [address]- When: Unknown [facility] 11-17-2022 Hospital Discharge instructions Patient Education 06/24/2022 [...] a slower pace than normal. ?Eat soft, fbxm-es-kzwxwk foods. Take xfhb-yis-xknlkde or prescription medicines only as told by [...] 03/08/2005 Document Revised: 05/17/2018 Document Reviewed: 10/05/2016 [employer] Patient Education 2020 [employer]. Follow Up Care 02/15/2022 10:08:03 With:William Brush Address:Unknown When: Unknown Comments:will call with results [facility]10-14-20[facility] Instructions* Patient Instructions* Catrachito Barton, OD [...] delay. Recommended yearly exams. [facility] History of Present illness Narrative* Catrachito [...] and examined this patient. [facility] Hospital Discharge instructions Patient Education 05/12/2022 [...] Follow these instructions at home: Medicines Take dyyr-gtb-ppjkvdl and prescription medicines only as told by [...] prevent or treat constipation, such as: ?Take yebf-btn-ktvmelx or prescription medicines. ?Eat foods that are [...] 07/25/2006 Document Revised: 11/14/2019 Document Reviewed: 04/25/2019 [employer] Patient Education 2019 [employer] Follow Up Care 04/30/2022 08:49:28 With:TAMIKO SAEZ, Luiz Jackson, ELVIRA Address: [facility] [address] , [place] [address]- [phone] When:08/12/2022 [facility] 08-10-2022 Hospital Discharge instructions Patient Education [...] including vitamins, herbs, eye drops, creams, and pgrr-mpx-qnqmncp medicines. Any problems you or family members [...] provider tells you to take them. Taking bkmo-mfa-caxhspn medicines, vitamins, herbs, and supplements. Eating and [...] 07/25/2006 Document Revised: 11/14/2019 Document Reviewed: 04/25/2019 [employer] Patient Education 2020 [employer]. Follow Up Care 02/12/2022 10:45:59 With:TAMIKO SAEZ, Luiz Jackson, URL Address: [facility] [address] , [place] [address]- [phone] When: Unknown Comments:schedule TURP [facility] 07-26-2022 Hospital Discharge instructions Patient [...] for your post-operative appointment in 1-2 weeks [phone] or [phone] Follow Up Care 02/12/2022 10:36:38 With:Luiz MORRISON Address: [facility] [address] [place] [address]- Business (1) When: Unknown Comments:Appointment has already been scheduled [facility]-18[facility] Evaluation note* Encounter Date Diagnosis Assessment Notes Treatment Notes Treatment Clinical Notes Feb, Obstructive sleep apnea (ICD-10 - G47.33) Patient was advised to continue current treatment with CPAP on a regular basis, also to continue working aggressively on losing weight and improving his sleep hygiene, will send a new prescription for supplies to his homecare company I will see him for follow-up in 1 year Feb, Periodic limb movement disorder (ICD-10 - G47.61) Feb, Morbid obesity (ICD-10 - E66.01) [place] Other 05-16-2022 Hospital Discharge instructions Patient Education [...] Follow these instructions at home: Medicines Take ougj-dfi-hyadvwc and prescription medicines only as told by [...] or the blood stops without treatment. Take ferc-yjo-qlcedpl and prescription medicines only as told by your health care provider. Drink enough fluid to keep your urine clear or pale yellow. This information is not intended to replace advice given to you by your health care provider. Make sure you discuss any questions you have with your health care provider. Document Released: 07/25/2006 Document Revised: 12/19/2019 Document Reviewed: 08/27/2017 [employer] Patient Education 2020 [employer]. Follow Up Care 12/01/2021 08:55:58 With:TAMIKO SAEZ, Luiz Jackson, URL Address: [facility] [address] , [place] [address]- When: Unknown Comments:Huyen WILKES. [facility] 05-06-2022 Hospital Discharge instructions Patient Education 12/11/2021 [...] ?Hypothyroidism. ?Polycystic ovarian syndrome (PCOS). ?Binge-eating disorder. ?Woodson syndrome. Taking certain medicines, such as steroids, [...] food choices, such as grocery stores and [employer]. What are the signs or symptoms? The [...] and how much exercise you get. Take huji-xyx-qzwbrhq and prescription medicines only as told by [...] 09/01/2005 Document Revised: 03/29/2019 Document Reviewed: 03/29/2019 [employer] Patient Education 2019 [employer]. [facility] [place] 04-26-2022 Evaluation + Plan noteExtracted from: Title:Urology Progress Note Author:Rakesh MORRISON MD Date:12/01/21 Patient: PHU LOPEZ Age: 66 years Sex: Male : 1955 Associated Diagnoses: None Author: TAMIKO SAEZ, Luiz R Subjective X this gentleman has BPH with [...] list: All Problems asthma / SNOMED CT 325346810 / Confirmed Hypocalcemia / SNOMED CT 6653796 / Confirmed Hypokalemia / SNOMED CT 92000959 / Confirmed Obesity / SNOMED CT 0591270355 / Confirmed Chronic heart failure / SNOMED CT 90845699 / Confirmed Hyperlipidemia / SNOMED CT 70544495 / Confirmed Hyperglycemia / SNOMED CT 136343251 / Confirmed Hypertension / SNOMED CT 44783908 / Confirmed Male hypogonadism / SNOMED CT 68795493 / Confirmed Onychomycosis / SNOMED CT 0613517510 / Confirmed Hypothyroid / SNOMED CT 50524208 / Confirmed Depression / SNOMED CT 79030958 / Confirmed Heart disease / SNOMED CT 57702692 / Confirmed Histories Past Medical History: Active asthma (350370170): Onset in 1970 at 15 years. Resolved Depression (300.4): Onset on 12/10/2009 at 54 years. Resolved. Comments: 12/10/2009 EDT 10:06 EDT - Family History: Cardiac arrhythmia Father () Malignant lymphoma Mother () Comments: 12/07/2009 0:16 EDT - Adrián WATT, Merlyn Alaniz parathyroid cancer Procedure history: Colonoscopy (124459729) on 10/08/2011 at 56 Years. Colonoscopy (277252756) on 08/10/2011 at 56 Years. Tonsillectomy (771949891). Social History Social & Psychosocial Habits Alcohol [...] Date:12/11/2021 08:20:00 AM Scheduled Provider:William Brush MD Location:[facility] Appointment Type:[place] [address] Appointment Date:12/22/2021 08:00:00 AM Scheduled Provider:Luiz MORRISON MD [facility]O Office Visit Diagnostic Tests Pending * UroVysion Fish and Urine Cyto ([facility]) 12/01/21 [facility]04-[facility] Hospital Discharge instructions Patient Education 12/01/2021 [...] MORRISON Address: [facility] [address], [place] [address]- Business (1) When: Unknown Comments:Office will call to schedule follow up [facility]03-30-20[facility] Evaluation + Plan note Future Scheduled Tests Radiology* CT Urogram 11/04/21 [facility] [id number] Hospital Discharge instructions Patient Education 11/04/2021 11:30:36 [...] Follow these instructions at home: Medicines Take muon-dsi-efzlzgr and prescription medicines only as told by [...] or the blood stops without treatment. Take byii-swo-yzoufom and prescription medicines only as told by your health care provider. Drink enough fluid to keep your urine clear or pale yellow. This information is not intended to replace advice given to you by your health care provider. Make sure you discuss any questions you have with your health care provider. Document Released: 07/25/2006 Document Revised: 12/19/2019 Document Reviewed: 08/27/2017 [employer] Patient Education 2019 [employer]. Follow Up Care 10/06/2021 15:23:45 With:Luiz MORRISON MD, URL Address: [facility] [address], [place] [phone] When: Unknown [facility] 01-08-2021 History of Past illness Narrative* Problem Noted Date Resolved Date Epiretinal membrane (ERM) of right eye 1 09/04/2021 documented as of this encounter (statuses as of 05/21/2022) [facility] Future Appointments Appointment Date:12/01/2021 08:00:00 AM Scheduled Provider: Location:[facility] Appointment Type:Urology FT Appointment Date:12/11/2021 08:20:00 AM Scheduled Provider:William Brush MD Location:[facility] [address] note Future Appointments Appointment Date:12/11/2021 08:20:00 AM Scheduled Provider:William Brush MD Location:[facility] Appointment Type:[place] [address] Appointment Date:12/22/2021 08:00:00 AM Scheduled Provider:Luiz MORRISON MD [facility] Future Appointments Appointment Date:12/11/2021 08:20:00 AM Scheduled Provider:William Brush MD Location:[facility] Appointment Type:[place] [address] Appointment Date:12/22/2021 08:00:00 AM Scheduled Provider:Luiz MORRISON MD [facility] Type:URO Office Visit Diagnostic Tests Pending * Testosterone F&T 12[facility]10[facility]21 [facility] Future Appointments Appointment Date:12/22/2021 08:00:00 AM Scheduled Provider:Luiz MORRISON MD [facility] Appointment Type:URO Office Visit Appointment Date:02/19/2022 12:30:00 PM Scheduled Provider: Location:[facility] Appointment Type:Surgery FT [facility] [place] Evaluation + Plan note Future Appointments Appointment Date:02/19/2022 12:30:00 PM Scheduled Provider: Location:[facility] Appointment Type:Surgery FT Diagnostic Tests Pending * PSA Total 12/22/21 [facility] Evaluation + Plan note Future Appointments Appointment Date:02/19/2022 12:30:00 PM Scheduled Provider: Location:[facility] Future Appointments Appointment Date:03/02/2022 09:45:00 AM Scheduled Provider: Location:[facility] Appointment Type:Urology FT Appointment Date:03/17/2022 02:00:00 PM Scheduled Provider:Luiz MORRISON MD Location[facility] Appointment Type:URO Office Visit Appointment Date:06/25/2022 12:30:00 PM Scheduled Provider: Location:[facility] App[facility]ment [facility] Future Appointments Appointment Date:03/17/2022 02:00:00 PM Scheduled Provider:Luiz MORRISON MD Location[facility] Appointment Type:URO Office Visit Appointment Date:06/25/2022 12:30:00 PM Scheduled Provider: Location:[facility] Appointment Type:Surgery FT Diagnostic Tests Pending * Prostate Histology ([facility]) 03/02/22 [facility] Future Appointments Appointment Date:06/25/2022 12:30:00 PM Scheduled Provider: [facility] Type:Surgery FT [facility] Evaluation + Plan note Future Appointments Appointment Date:04/06/2022 02:30:00 PM Scheduled Provider:Milo Gonzales MD Location:[facility] Appointment Type:Pain Management - New (FT) Appointment Date:06/25/2022 12:30:00 PM Scheduled Provider: Location:[facility] Appointment Type:Surgery FT [facility] [place] Evaluation + Plan note Future Appointments Appointment Date:05/12/2022 08:00:00 AM Scheduled Provider:Luiz MORRISON MD Location[facility] Appointment Type:URO Office Visit Appointment Date:06/25/2022 12:30:00 PM Scheduled Provider: Location:[facility] Appointment Type:Surgery [facility] Evaluation + Plan note Future Appointments Appointment Date:06/24/2022 12:30:00 PM Scheduled Provider: Location:[facility] Appointment Type:Surgery FT Appointment Date:08/11/2022 10:30:00 AM Scheduled Provider:Luiz MORRISON MD Location:[facility] Appointment Type:URO Office Visit [facility] Evaluation + Plan note Future Appointments Appointment Date:08/11/2022 10:30:00 AM Scheduled Provider:Luiz MORRISON MD Location:[facility] App[facility]ment Type:[facility]O [facility] Future Appointments Appointment Date:11/03/2022 03:00:00 PM Scheduled Provider:Luiz MORRISON MD Location[facility]ment Type:URO [facility] Future Appointments Appointment Date:06/15/2023 01:15:00 PM Scheduled Provider:Luiz MORRISON MD Location[facility] Appointment Type:URO Office Visit Diagnostic Tests Pending * PSA Total 11/03/22 [facility] Evaluation + Plan note Future Appointments Appointment Date:06/15/2023 01:15:00 PM Scheduled Provider:Luiz MORRISON MD [facility] Appointment Type:URO Office Visit Diagnostic Tests Pending * PSA Total 04/30/23 [facility] Future Appointments Appointment Date:06/20/2024 01:00:00 PM Scheduled Provider:Luiz MORRISON MD Location:[facility] Appointment Type:URO Office Visit Diagnostic Tests Pending * PSA Total 06/15/23 [facility] Evaluation + Plan note Future Appointments Appointment Date:06/20/2024 01:00:00 PM Scheduled Provider:Luiz MORRISON MD Location:[facility] [place] Appointment Type:URO [facility] assessment information available [facility] Work Phone: Evaluation note* Diagnosis Epiretinal membrane (ERM) of both eyes- Primary Floppy eyelid syndrome of both eyes Combined forms of age-related cataract of both eyes Other and combined forms of senile cataract Posterior vitreous detachment of both eyes Vitreous degeneration Vitreous floaters of both eyes documented [facility] this encounter [facility]* Diagnosis Essential hypertension Unspecified essential hypertension Non-ischemic cardiomyopathy (CMS/HCC) Other primary cardiomyopathies Hyperlipidemia, unspecified hyperlipidemia type Obstructive sleep apnea, adult Morbid obesity with BMI of 40.0-44.9, adult ([facility]) documented in this encounter [facility] Work Phone: Evaluation note* Diagnosis Onset Date Resolution Status Hypertension acute Sleep apnea with use of cont inuous positive airway pressure (CPAP) acute Hypertension acute Sleep apnea with use of cont inuous positive airway pressure (CPAP) acute [facility] Work Phone: evaluxppdn note* Diagnosis Acute deep vein thrombosis (DVT) of distal vein of right lower extremity (CMS/HCC)- Primary alf current use of anticoagulant Cardiomyopathy, unspecified type (CMS/HCC) PVD (peripheral vascular disease) (CMS/HCC) Unspecified peripheral vascular disease Essential hypertension (CMS/HCC) Unspecified essential hypertension BMI 40.0-44.9, adult (CMS/HCC) Morbid obesity (CMS/HCC) Morbid obesity [facility] encounter [facility] N[facility] - Reported* Type Description Date Medical History CARDIOMYOPATHY Medical History HYPERTENSION Medical History HYPOKALEMIA Medical History HYPERLIPIDEMIA Medical History FATTY LIVER Medical History ASTHMA Medical History SLEEP APNEA Medical History DEPRESSION Medical History RESTLESS LEG SYNDROME Surgical History HEMMRHOIDECTOMY 1990 Surgical History ANGIOGRAM [place] Other Hospital course Narrative No data available for this section [facility] Hospital Discharge instructions No data available for this section [facility] No data available for this section [facility] (narrative)* Consultation (Routine) - Authorized Specialty Diagnoses / Procedures Referred By Contac t Referred To Contact Cardiology Diagnoses Essential hypertension Non-ischemic cardiomyopathy (CMS/HCC) Procedures Follow Up In Cardiology Delores Ac MD [address] [place] [id number] Delores Ac MD [address] [place] [address] 2, [address] [address] Referral ID Status Reason Start Date Expiration Date V isits Requested Visits Authorized [id number] Authorized 09/30/2023 09/29/2024 1 1 [facility] Work Phone: Summary Purpose Family History Unknown [...] on CPAP machine * Delores Ac MD, [facility] PHU LOPEZ is being seen for an annual follow-up of.* PHU LOPEZ is being seen for an annual follow-up of. * Patient is in the office for follow-up for the problems noted below. 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 He reports no symptoms of dyspnea or [...] been very compliant * Delores Ac MD, FACC * PHU LOPEZ is being seen for [...] 1 Drop, BOTH EYES, DIRECTED, Starting on 05/21/22 at 1530, Until 05/22/22 at 0329, Administer [...] section and content) DATE CREATED AUTHOR 05/19/2018 [facility] DATE CREATED AUTHOR AUTHOR'S ORGANIZ ATION 03/14/2021 [facility] DATE CREATED AUTHOR AUTHOR'S ORGANIZ ATION 09/29/2022 [facility] DATE CREATED AUTHOR AUTHOR'S ORGANIZ ATION 09/29/2022 [employer] DATE CREATED AUTHOR AUTHOR'S ORGANIZ ATION 02/24/2023 [facility] DATE CREATED AUTHOR AUTHOR'S ORGANIZ ATION 05/29/2023 [facility] DATE CREATED AUTHOR AUTHOR'S ORGANIZ ATION 11/30/2023 [facility] DATE CREATED AUTHOR AUTHOR'S ORGANIZ ATION 04/17/2024 [facility] DATE CREATED AUTHOR AUTHOR'S ORGANIZ ATION 05/12/2024 [facility] EPIC <item> Privacy Markings (unrecogniz ed section and [...] Active Burak Rangel MD Attending Provider Active Partner Relationship Specialty Start Date End Date Terri Santos DO [address] [place] [address] PCP - General Family Medicine 04/11/18 Partner Relationship Specialty Start Date End Date Terri Santos DO [address] [id number] PCP - General 09/11/20 Team Status: Inactive [...] May 07, 2024 End: May 07, 2024 Partner Relationship Specialty Start Date End Date Terri Santos DO PCP - Medical [employer] 08/08/09 08/07/99 Liliana Waller MD [address] [place] [address] PCP - General Family Medicine 03/26/24 Partner Relationship Specialty Start Date End Date Terri Santos DO PCP - Medical [employer] 08/08/09 08/07/99 Liliana Waller MD [address] [place] [address] PCP - General Family Medicine 03/26/24 Goals (unrecognized section and content) Goals may be documented in a n alternate section REASON FOR VISIT (unrecogniz ed section and content) Reason Comments Epiretinal Membrane Follow Up Both eyes Reason Comments Follow-up 1yr Reason Comments Follow-up Source Comments (unrecognize d section and content) In the event this informatio n is protected by the Federal Confidentiality of Alcohol and Drug Abuse Patient Records regulations: The Federal rules restrict any use of the information to criminally investigate or prosecute any alcohol or drug abuse patient.[facility] FOR RECORDS PERTAINING TO PATIENTS WHO [...] BE BASED ON THE PRIMARY CLINICAL RECORDS. [employer] [facility]. provides no warranty or guarantee of the accuracy or completeness of information in this document.
--- NOTE | 2024-05-25 07:48 | VEIN_ITS ---
[address] [address] Patient Name: RACHEL NGUYEN MRN: [id number] date: 1955 Sex: M Assigned Patient Location: Current Patient Location: Accession/Order Number: [id number] Exam Date: 05/25/2024 08:14 Report Date: 05/25/2024 09:36 At the request of: MARY RATLIFF Procedure: VC Endovenous Ablation 1VeinLT EXAMINATION: VC Endovenous Ablation 1VeinLT HISTORY: I83.813 - Varicose veins of bilateral lower extremities w... COMPARISON: No relevant comparison available. TECHNIQUE: The risks and benefits of the procedure had been previously discussed, and were rediscussed at length. Informed written consent was obtained. Jane Farris and Gerald Lopez assisted. Time out procedure was performed. The left lower extremity was prepared and draped in the usual sterile fashion to allow knee flexion in the sterile field. Duplex ultrasound probe was draped in a sterile cover, sterile transmission gel was used. Venous mapping was performed with the areas of dilation and large tributaries marked. The total length was 58 cm from the entry 6 cm above the medial malleolus to 3 cm below the saphenofemoral junction. The diameter of the greater saphenous vein ranged from 6-12 mm. A 30 gauge needle and 1% buffered lidocaine was used to anesthetize the entry site. A 4 mm incision was made with a scalpel and the saphenous vein was entered percutaneously under direct ultrasound guidance with a micropuncture set, a single stick was successful in gaining access. A micro-guide wire was inserted and the needle removed. A micro-set including a dilator was inserted over the microwire and the needle and dilator were removed. A 0.018 guide wire was inserted through the micro-set and threaded through the saphenous vein to the saphenofemoral junction. The dilator was removed and an introducer sheath was inserted over the wire until the end of the sheath entered the saphenofemoral junction. The dilator and wire were removed and the 600 micron fiber was introduced and placed and positioned so that it extended beyond the sheath and was 3 cm peripheral to the saphenofemoral femoral junction. Final position of the fiber was determined by ultrasound guidance and duplex imaging. Tumescent anesthetic was delivered by ultrasound guidance. 300 cc of fluid was delivered along the entire course of the saphenous vein. The solution consisted of 1000 cc of normal saline with 40 mL of 1% lidocaine and 20 mL of sodium bicarbonate. A final positioning check was made. The energy source was turned on by means of the foot pedal and the fiber and sheath were withdrawn. The total number of Joules delivered was 4022. The laser was active for 503 seconds under continuous pulse, average laser use of 8 J. Laser start time 9:12 AM 05/25/2024. AM . Laser stop time 9:20 AM 05/25/2024 . A duplex ultrasound revealed compressibility and flow at the saphenofemoral junction immediately after the procedure. Hemostasis at the access site was achieved. The skin incision of the saphenous vein was closed with a 4 x 4. A compression stocking was applied. Postop instructions were given. A follow up appointment was recommended and scheduled. The patient tolerated the procedure well and was discharged in good condition . VEIN/VC Endovenous Ablation 1VeinLT IMPRESSION: Technically successful endovenous laser ablation left great saphenous vein Electronically authenticated by: LUIS MALIK Date: 05/25/2024 09:36
[2024-05-25 08:51] VITALS: BP 160/80; PULSE 70; O2SAT 98
== END 2024-05-25 09:50 | disposition home or self-care (01) ==
LOC: VC 07:38
PROVIDERS: PCP Radiology Diagnostic Radiology; Visit Provider Radiology Diagnostic Radiology
DX: I83.813 Varicose veins of bilateral lower extremities with pain (principal)
CPT/HCPCS: 36478

== ENCOUNTER 2024-06-01 07:46 | Outpatient (OUT) | payer OTHER, SELFPAY ==
[2024-06-01 07:32] VITALS: BMI 38.6
--- NOTE | 2024-06-01 07:32 | VEINCLINIC_ITS ---
Vital Signs 06/01/24 07:32 Height 5 ft 10 in Weight 122 kg BMI 38.6 Varicose Veins Patient in today for follow up ultrasound of left lower extremity following EVLT of left GSV completed on 05/25/24. Rahul Smith MD personally performed the services described in this documentation, as scribed by aJne Farris RDMS in my presence and it is both accurate and complete. Jane Smith RDMS, am scribing for, and in the presence of, Dr. Della Pedro and in the presence of the patient. thigh: bilateral, knee: bilateral, calf: bilateral, ankle: bilateral and delaney: bilateral aching and dull 3 2 years Worsened in recent months: Yes walking elevating extremities and compression stockings Reports heaviness, restless legs, limb pain, edema and leg edema History of lower extremity trauma: No Superficial thrombophlebitis: No Family history of varicose veins: no Has patient had previous lower extremity venous surgery: No Patient has previously received the following treatment(s) for lower extremity varicose veins: Reports none Does patient have a history of : not applicable Does patient intend to have future pregnancies: not applicable Has patient had lower extremity venous scan with relux testing: Yes Support hose used: Yes Problems walking or doing physical activity: Yes How does it affect you: unable to walk long distances Do you walk much: No Do you stand much: Yes Medication compliance: good Review of Systems ROS Narrative Rahul Smith MD personally performed the services described in this documentation, as scribed by Jane Farris RDMS in my presence and it is both accurate and complete. Jane Smith RDMS, am scribing for, and in the presence of, Dr. Della Pedro and in the presence of the patient. Status of ROS 10 or more systems reviewed and unremark able except as noted in history and below Cardiovascular Reports: edema and swelling of feet/ankles Musculoskeletal Reports: extremity pain, extremity swelling, joint pain, joint swelling and muscle cramps Integumentary/Breast Reports: rash, itching and redness PFSH PFS Medical History (Updated 06/01/24 @ 07:33 by Jane Farris) Phlebitis and thrombophlebitis of superficial vessels of left lower extremity ?I80.02 - Phlebitis and thrombophlebitis of superficial vessels of left lower extremity (ICD-10) Phlebitis and thrombophlebitis of superficial vessels of right lower extremity ?I80.01 - Phlebitis and thrombophlebitis of superficial vessels of right lower extremity (ICD-10) Hemorrhoids, internal ?K64.8 - Other hemorrhoids (ICD-10) Pain due to varicose veins of both lower extremities ?I83.813 - Varicose veins of bilateral lower extremities with pain (ICD-10) Tinea pedis ?B35.3 - Tinea pedis (ICD-10) Sleep apnea ?G47.30 - Sleep apnea, unspecified (ICD-10) Restless leg ?G25.81 - Restless legs syndrome (ICD-10) Onychomycosis ?B35.1 - Tinea unguium (ICD-10) Obesity ?E66.9 - Obesity, unspecified (ICD-10) Left ventricular failure ?I50.1 - Left ventricular failure, unspecified (ICD-10) Hypokalemia ?E87.6 - Hypokalemia (ICD-10) Hyperglycemia ?R73.9 - Hyperglycemia, unspecified (ICD-10) Hyperlipemia ?E78.5 - Hyperlipidemia, unspecified (ICD-10) Accelerated essential hypertension ?I10 - Essential (primary) hypertension (ICD-10) Elevated PSA ?R97.20 - Elevated prostate specific antigen [PSA] (ICD-10) Cardiomyopathy ?I42.9 - Cardiomyopathy, unspecified (ICD-10) Anxiety ?F41.9 - Anxiety disorder, unspecified (ICD-10) Surgical History (Updated 05/25/24 @ 08:56 by Gerald Lopez) Status post laser ablation of incompetent vein ?Z98.890 - Other specified postprocedural states (ICD-10) Status post laser ablation of incompetent vein ?Z98.890 - Other specified postprocedural states (ICD-10) S/P TURP ?Z90.79 - Acquired absence of other genital organ(s) (ICD-10) Family History (Updated 04/06/24 @ 10:04 by Destini Carlin RN) Other Family history of CHF (congestive heart failure) Family history of cancer Family history of hypertension Family history of myocardial infarction Social History (Updated 04/06/24 @ 10:05 by Destini Carlin RN) Within the past year, how often did you have a drink containing alcohol: never Score interpretation: A score less than 4 is consistent with normal alcohol consumption. Smoking status: Never smoker Non-prescribed substance use: denies use Meds Home Medications and Allergies Home Medications ?Medication ?Instructions ?Recorded ?Confirmed ?Type amiloride 5 mg tablet 5 mg PO DAILY 04/06/24 04/06/24 History amlodipine 10 mg tablet 10 mg PO DAILY 04/06/24 04/06/24 History aspirin 325 mg tablet 325 mg PO DAILY 04/06/24 04/06/24 History carvedilol 25 mg tablet (Coreg) 25 mg PO BID 04/06/24 04/06/24 History doxazosin 4 mg tablet (Cardura) 4 mg PO QPM 04/06/24 04/06/24 History finasteride 5 mg tablet 5 mg PO DAILY 04/06/24 04/06/24 History hydralazine .Route DAILY 04/06/24 History hydrochlorothiazide 25 mg tablet 25 mg PO DAILY 04/06/24 04/06/24 History losartan 100 mg tablet 100 mg PO DAILY 04/06/24 04/06/24 History lovastatin 30 mg PO QAM 04/06/24 04/06/24 History montelukast 10 mg tablet 10 mg PO DAILY 04/06/24 04/06/24 History niacin 500 mg capsule,extended 500 mg PO DAILY 04/06/24 04/06/24 History release paroxetine HCl 20 mg tablet 20 mg PO DAILY 04/06/24 04/06/24 History potassium chloride 10 mEq 10 meq PO DAILY 04/06/24 04/06/24 History tablet,extended release (Klor-Con) apixaban 5 mg tablet (Eliquis) 5 mg PO BID 05/04/24 05/04/24 History Allergies Allergy/AdvReac Type Severity Reaction Status Date / Time clarithromycin Allergy Unknown Unknown Verified 04/06/24 09:39 Exam Narrative Exam Narrative: Patient has been wearing stockings and swelling has mildly improved in legs. Rahul Smith MD personally performed the services described in this documentation, as scribed by Jane Farris RDMS in my presence and it is both accurate and complete. Jane Smith RDMS, am scribing for, and in the presence of, Dr. Della Pedro and in the presence of the patient. Constitutional Vital Signs, click to edit/add: Last Vital Signs Pulse 70 04/20/24 09:25 Resp 18 04/20/24 09:25 BP 120/64 04/20/24 09:25 Pulse Ox 96 04/20/24 09:25 Documenting provider has reviewed patient's vital signs: yes Common normals: oriented x3 Nutritional appearance: overweight Lymph Lymphatic: no lymphedema noted Cardio Peripheral pulses: posterior tibial pulses present and dorsalis pedis pulses present Extremity General: calf tenderness, edema and other findings Right lower extremity: lower leg Right lower leg: inspection and palpation Left lower extremity: lower leg Left lower leg: inspection and palpation Neuro Common normals: oriented x3 Results Imaging Venous US: Radiologist's impression: Heat induced thrombus in left GSV 3.5 cm from SFJ and extends to distal lower leg. Rahul Smith MD personally performed the services described in this documentation, as scribed by Jane Farris RDMS in my presence and it is both accurate and complete. Jane Smith RDMS, am scribing for, and in the presence of, Dr. Della Pedro and in the presence of the patient. Assessment and Plan Assessment and Plan (1) Phlebitis and thrombophlebitis of superficial vessels of left lower extremity: Plan Plan is for patient to return for EVLT of right SSV on 06/15/24. Rahul Smith MD personally performed the services described in this documentation, as scribed by Jane Farris RDMS in my presence and it is both accurate and complete. Jane Smith RDMS, am scribing for, and in the presence of, Dr. Della Pedro and in the presence of the patient.
--- NOTE | 2024-06-01 07:46 | VEIN_ITS ---
Patient Name: RACHEL NGUYEN MR#: [id number] : 1955 Exam Date: 06/01/2024 Ordering Doctor: DR LUIS MALIK M.D. RADIOLOGY REPORT PROCEDURE: [facility] - OFFICE VISIT FOLLOW UP [facility] PROGRESS NOTES: The patient reports improvement in leg symptoms. There has been interval reduction in varicosities. The patient has followed our recommendations to walk 20-30 minutes once or twice per day since the procedure. Physical exam demonstrates decrease in varicosities of the leg. Persistent varicosities are identified along the legs bilaterally. Review of the ultrasound performed the same day demonstrates occlusive thrombus extending throughout the treated vein(s), see separate report, consistent with a successful ablation. No thrombus extending into or beyond the saphenofemoral junction. The patient expressed a desire to proceed with treatment of remaining incompetent varicosities. The patient was informed that treatment was a process and would require several procedures/sessions. [facility]: 1. Successful ablation of the left great saphenous vein(s). 2. Persistent varicose veins and lower extremity symptoms. PLAN: 1. Endovenous laser ablation of right small saphenous vein. Nurse notes, history and physical were reviewed and confirmed, see attached forms. The nurse was present throughout the physical exam and consultation Dictated by: Rahul Pedro M.D. on 06/01/2024 at 09:06 Approved by: Rahul Pedro M.D. on 06/01/2024 at 09:08
--- NOTE | 2024-06-01 07:46 | VEIN_ITS ---
Patient Name: RACHEL NGUYEN MR#: [id number] : 1955 Exam Date: 06/01/2024 Ordering Doctor: DR LUIS MALIK M.D. RADIOLOGY REPORT PROCEDURE: VC EXT VENOUS LT LIMITED COMPARISON: None. INDICATIONS: I80.02 - Phlebitis and thrombophlebitis of superficial veins left leg TECHNIQUE: Lower extremity niño scale and Duplex Doppler evaluation of the deep venous system from the inguinal ligament through the calf veins. FINDINGS: REGION: Left lower extremity. THROMBI: Negative for DVT. Heat induced thrombus in left GSV 3.5 cm from SFJ and extends to distal lower leg. COMPRESSIBILITY: Non-compressible segments corresponding to thrombus FLOW: Areas of no flow corresponding to thrombus OTHER: CONCLUSION: 1. Successful post ablation occlusion of left great saphenous vein. Dictated by: Rahul Pedro M.D. on 06/01/2024 at 08:13 Approved by: aRhul Pedro M.D. on 06/01/2024 at 09:06
--- OUTSIDE RECORDS SUMMARY | 2024-06-01 07:49 | XMS_ITS | CCD ---
Author Organization [facility] Providers Care Tube Winder Hand Name Role Phone Mecca Nelsonaret Unavailable Unavailable Omar Danyell Unavailable Unavailable [facility] Unavailable Unavailable Omar Danyell Unavailable Unavailable Mecca Nelsonaret Unavailable Unavailable Terri Santos Unavailable Unavailable Terri Santos Unavailable Chriss Marie Unavailable Unavailable Terri Santos Unavailable Unavailable Unavailable Terri Santos Primary Care Physician MD Terri Santos Primary Care Provider MD Luiz Morrison Attending Provider MD Burak Rangel Attending Provider [phone] Burak Rangel Unavailable MD Terri Santos Primary [...] Dr. Delores Fajardo Referring Jessie vailable Luiz Morirson Admitting Unavailable Luiz Morrison Attending Unavailable Terri Santos Primary Care Unavailable Luiz Morrison Admitting Unavailable Luiz Morrison Attending Unavailable AllTerri chun Primary Care Unavailable Luiz Morrison Admitting Unavailable Luiz Morrison Attending Unavailable AllsoTerri de la torre Primary Care Unavailable Burak Rangel Admitting Unavailable Burak Rangel Attending Unavailable Terri Santos Primary Care Unavailable MD Terri Santos Primary Care Provider MD Burak Rangel Attending Provider TERRI SANTOS Primary Care Unavailable JOSSELIN DECKER Attending Unavailable CATRACHITO BARTON Referring Unavailabl e Allsop Terri STONE Primary Care Provider DLEORES AC Attending Unavailable ALLSOTERRI De La Torre Primary Care Unavailab ADAM Otero Attending Unavailable ALLSOP, TERRI Pfeiffer Attending Unavailable DOLCEADAM Attending Unavailable ALLSOP, TERRI Pfeiffer Attending Unavailable ALLSOP, TERRI Pfeiffer Attending Unavailable DOLCEADAM Attending Unavailable DOLCE, ADAM Pfeiffer Attending Unavailable GUNNAR ADLER Attending Unavailable LILIANA WALLER Attending Unavailable Allsop DO, Terri Pfeiffer Unavailable UnavailLiliana Pond MD Primary Care Provider Liliana Waller Primary Care Physician Allsop, Terri Margarette Admitting Unavailable Allsop, Terri Pfeiffer Attending Unavailable Allsop, Terri D Referring Unavailable MORRISONLuiz Admitting Unavailable MORRISONLuiz Attending Unavailable Allsop, Terri Pfeiffer Admitting Unavailable Allsop, Terri Pfeiffer Attending Unavailable MORRISONLuiz Attending Unavailable MORRISONLuiz R Attending Unavailable MORRISONLuiz R Admitting Unavailable MORRISONLuiz Attending Unavailable Allergies Allergy Classification Reported Allergen(s) Allergy Type Date of Onset Reaction(s) Facility Macrolides (antibiotic) (1 source) Clarithromycin Drug Allergy Unknown [facility] (1 source) No Known Medication Allergies; Translations: [No Known Medication Allergies] Propensity to adverse reactions to drug (disorder) [facility] (9 sources) shellfish, unspecified Allergy to substance (finding) [facility] 600 DO Work Phone: (15 sources) Clarithromycin; Translations: [clarithromycin] Drug Allergy Unknown [facility] [place] (2 sources) Shellfish; Translations: [SHELLFISH CONTAINING PRODUCTS] Drug Allergy 3 Swelling [facility] (2 sources) Shellfish; Translations: [SHELLFISH DERIVED] Propensity to adverse reactions 4 Other [facility] (3 sources) Clarithromycin Allergy to substance 3 Unknown [facility] Work Phone: Medications Current Medications Medication Drug Class(es) Dates Sig (Normalized) Sig (Original) acetaminophen 325 mg / HYDROcodone bitartrate 7.5 mg oral tablet (2 sources) Opioid Agonist Start: 02-12-2022 take 1 tablet by mouth once [place] 325 mg-7.5 mg oral tablet 1 tab(s), Oral, Once, 1 tab(s), Refill(s) 0, Take 1 hour prior to procedure. Don't drive or operate machinery while taking this medication., [facility], 178, cm, 12/22/21 8:18:00 EDT, Height/Length Dosing, 137.1, kg, 12/22/21 8:17:00 EDT,... Start Date: 02/12/22 Status: Ordered aMILoride hydrochloride 5 mg oral tablet (20 sources) Potassium-sparin g Diuretic Start: 04-13-2022 take 5 mg by mouth twice daily Amiloride Active 5 MG PO Twice daily April 13, 2022 12:00am Start: 06-27-2019 take 2 tablets by [facility] once daily amiloride 5 mg oral tablet See Instructions, Take 2 tablets by mouth once daily, # 180 EA, Refills(s) 1, Pharmacy: [facility], 177, cm, 08/28/20 9:27:00 EST, Height/Length Dosing, 84, kg, 08/28/20 9:27:00 EST, Weight Dosing Start Date: 10/09/20 Status: Ordered End: 09-30-2023 take 1 tablet by mouth once daily aMILoride (Midamor) 5 mg tablet Take 1 tablet (5 mg) by mouth once daily. 0 09/30/2023 Discontinued (Other) aMILoride HCl Ac tive Comment on above: TAKE 2 TABLETS BY [facility] ONCE DAILY FOR 90 DAYS amLODIPine 10 mg oral tablet (20 sources) Dihydropyridine Calcium Channel Jonathan Start: 3 End: 4 take 1 tablet by mouth [...] Acid 7540 MG / POLYETHYLENE GLYCOL 3350 68874 MG / Potassium Chloride 1200 MG / Sodium Ascorbate 86604 MG / Sodium Chloride 3200 MG Powder for Oral Solution) / 1 (POLYETHYLENE GLYCOL 3350 035611 MG / Potassium Chloride 1000 MG / [...] Active Start: 03-13-2019 [facility] aspirin 325 mg Tab 325 mg = 1 tab(s), Oral, Every other day, Refills(s) 0, Prophylaxis Start Date: 03/13/19 Status: Ordered Aspirin Active take [facility] daily Aspirin 325 MG Oral Tablet [...] extended release oral tablet (1 source) Uncompetitive E-zdcgtm-H-aspartate Receptor Antagonist, Sigma-1 Agonist Start: End: take [...] day(s), # 42 cap(s), Refills(s) 0, Pharmacy: [facility], 178, cm, 11/26/21 12:38:00 EDT, Height/Length Dosing, 137.1, kg, 11/04/21 10:45:00 EDT, Weight Dosing Start Date: 12/01/21 Stop Date: 12/22/21 Status: Ordered erythromycin 0.02 mg/mg topical gel (14 sources) Macrolide, Macrolide Antimicrobial Start: 03-31-2022 Erygel 2% topical gel 1 juan, Topical, BID, Refill(s) 0 Start Date: 03/31/22 Status: Ordered finasteride 5 mg oral tablet (20 sources) 5-alpha Reductase Inhibitor Start: 12-01-2021 take 1 tablet by mouth once daily finasteride 5 mg Tab 5 mg = 1 tab(s), Oral, Daily, # 90 tab(s), Refills(s) 3, Pharmacy: [facility], 178, cm, 06/15/23 13:22:00 EST, Height/Length Dosing, 125.6, kg, 06/15/23 13:22:00 EST, Weight Dosing Start Date: 04/05/24 Status: Ordered Finasteride Acti ve Comment on [...] oral tablet (20 sources) Thiazide Diuretic Start: 020 take 1 tablet by mouth once daily [...] mg oral tablet (20 sources) Start: 03-31-20 22 take 1 tablet by mouth once [...] Start: 09-23-2017 take 3 tablets by [facility] once daily lovastatin 10 mg Tab 30 mg = 3 tab(s), Oral, Daily, Refills(s) 0 Start Date: 09/23/17 Status: Ordered take 2 tablets by [facility] every other day lovastatin (Mevacor) 20 [...] Refills: 0 Ordered: 31-Aug-2021 DO Active omega 1-mlt-ylj-fish oil 360 mg-108 mg- 180 mg-1,200 mg capsule (1 source) End: 09-30-2023 take 1 capsule by mouth once daily omega 6-moa-vwm-fish oil 360 mg-108 mg- 180 mg-1,200 mg capsule Take 1 capsule by mouth once daily. 0 09/30/2023 Discontinued (Other) [place]-3 Fatty Acids (3 sources) Start: 04-13-2022 take 2000 mg by mouth once daily at bedtime [place]-3 Fatty Acids Active 2000 MG PO Daily at bedtime April 13, 2022 12:00am [place]-3 Fatty Acids ([place] 3 Fish Oil) Capsule (2 sources) Start: 04-13-2022 take 1 capsule by mouth once daily at bedtime [place]-3 Fatty Acids ([place] 3 Fish Oil) Capsule Active 2000 MG PO Daily at bedtime April 13, 2022 12:00am PARoxetine hydrochloride 20 mg oral tablet (20 sources) Serotonin Reuptake Inhibitor Start: 09-23-2017 take 1 tablet by mouth once daily paroxetine 20 mg Tab 20 mg = 1 tab(s), Oral, Daily, Refills(s) 0, Depression Start Date: 09/23/17 Status: Ordered Start: 09-23-2017 take 1 tablet by shelley [...] 12:00am Start: 10-07-2011 take 7 tablets by [facility] once daily Klor-Con 10 mEq 70 mEq = 7 tab(s), Oral, Daily, # 210, Refills(s) 0, Prophylaxis Start Date: 10/07/11 Status: Ordered Start: 10-07-2011 take 7 tablets by [facility] once daily Klor-Con 10 mEq 70 mEq = 7 tab(s), Oral, Daily, # 210, Refills(s) 0, Prophylaxis Start Date: 10/07/11 Status: Ordered Start: 10-07-2011 take 7 tablets by [facility] once daily Klor-Con 10 mEq 70 mEq [...] q4wk, # 2 mL, Refills(s) 4, Pharmacy: [facility], 177, cm, 08/28/20 9:27:00 EST, [...] procedure, # 2 tab(s), Refills(s) 0, Pharmacy: [facility], 178, cm, 11/04/21 10:45:00 EDT, Height/Length [...] 0 Refills: 0 Ordered: 31-Aug-2021 DO Active [place]-3 CAPS (8 sources) [place]-3 CAPS LADONNA E DIRECTED. Quantity: 0 Refills: [...] [Left heart failure] Onset: 3 03-13-2019 Chronic Diabetes mellitus without complication (20 sources) Hyperglycemia; Translations: [Hyperglycemia, unspecified] Onset: 3 02-21-2020 Episodic Disorders of lipid metabolism (20 sources) Hyperlipidemia; Translations: [Other and unspecified hyperlipidemia] Onset: 3 11-06-2020 Chronic Essential hypertension (20 sources) Essential hypertension; Translations: [Unspecified essential hypertension] Onset: 3 02-21-2020 Chronic Fluid and electrolyte disorders (20 sources) Hypokalemia; Translations: [Hypokalemia] Onset: 3 02-21-2020 Episodic Genitourinary symptoms and ill-defined conditions (18 sources) Urge incontinence; Translations: [Urge incontinence of urine] Onset: 2 Chronic Genitourinary symptoms and ill-defined conditions (20 sources) Blood in urine; Translations: [Gross hematuria] Onset: 2 Episodic Glaucoma (1 source) Ocular hypertension; Translations: [Ocular hypertension, bilateral] Onset: 8 04-12-2018 Chronic Hemorrhoids (10 sources) Thrombosed external hemorrhoids 04-25-2022 Episodic Hyperplasia of prostate (20 sources) Benign prostatic hypertrophy with outflow obstruction; Translations: [Benign prostatic hyperplasia with lower urinary tract symptoms] Onset: 2 Chronic Malaise and fatigue (20 sources) Fatigue; Translations: [Other fatigue] Onset: 3 12-08-2021 Episodic Mood disorders (20 sources) Dysthymia; Translations: [Depressive disorder] Onset: 0 03-13-2019 Chronic Mycoses (20 sources) Onychomycosis; Translations: [Tinea pedis] Onset: 3 03-13-2019 Episodic Other aftercare (2 sources) Long-term current use of anticoagulant; Translations: [correction (current) use of anticoagulants] 05-10-2024 Episodic Other and ill-defined heart disease (20 sources) Heart disease 11-04-2021 Chronic Other diseases of kidney and ureters (4 sources) Urinary tract obstruction; Translations: [Other obstructive [...] Chronic Other nutritional; endocrine; and metabolic disorders (14 sources) Body mass index 30+ - obesity 04-01-2022 Chronic Other nutritional; endocrine; and metabolic disorders (2 sources) Body mass index (BMI) 40.0-44.9, adult; Translations: [Body mass index (BMI) 40.0-44.9, adult (CMS/HCC)] Onset: 4 Chronic Other nutritional; endocrine; and metabolic disorders (3 sources) Obesity caused by energy imbalance; Translations: [Morbid (severe) obesity due to excess calories] Onset: 4 12-18-2023 Chronic Other screening for suspected conditions (not mental disorders or infectious disease) (20 sources) Liver function tests abnormal; Translations: [Raised prostate specific antigen] Onset: 2 Resolved: 4 12-08-2021 Episodic Other upper respiratory disease (20 [...] 03-12-2024 Chronic Residual codes; unclassified (20 sources) Edema; Translations: [Edema, unspecified] Onset: 3 12-08-2021 Episodic Residual codes; unclassified (1 source) H/O: Disorder; Translations: [Personal history of other specified conditions] Onset: 3 Episodic Retinal detachments; defects; vascular occlusion; and retinopathy (1 source) Bilateral epiretinal membrane of eyes; Translations: [Puckering of macula, bilateral] Chronic Thyroid disorders (20 sources) Hypothyroidism; Translations: [Hypothyroidism, unspecified] Onset: 3 Resolved: 3 05-22-2020 Chronic Unclassified (20 sources) Patient encounter status 12-11-2021 Unclassified (1 source) Benign prostatic hyperplasia with lower urinary tract symptoms; Translations: [Benign prostatic hyperplasia with lower urinary tract symptoms] Onset: 2 Unclassified (1 source) Encounter for preprocedural laboratory examination; Translations: [Encounter for preprocedural laboratory examination] Onset: 2 Unclassified (4 sources) History of clinical finding in subject [...] left toe(s)] Onset: 01-04-2023 01-04-2023 Episodic Other skin disorders (3 sources) Skin tag; Translations: [Other hypertrophic disorders of the skin] Onset: 12-18-2023 12-18-2023 Episodic Spondylosis; intervertebral disc disorders; other back problems (6 sources) Acute back pain with sciatica; Translations: [Lumbago with sciatica, right side] Onset: 03-11-2023 03-11-2023 Episodic Unclassified (8 sources) Never smoked tobacco; Translations: [Never a smoker] Results Test Name Value Interpretation Reference Range Facility CHEMISTRYOrdered By: SYSTEM SYSTEM on 05-25-2024 Prostate specific Ag [Mass/Vol] 0.6 ng/mL Normal 0.1 - 3.5 ng/mL [facility] Comment on above: Interpretive Data: T he concentration of PSA determined by different manufacturers can vary due to differences in assay methods and reagent specificity. Values obtained from different assay methods cannot be used interchangeably. The methodology used for this result was chemiluminescence using [employer]'s Access Hybritech PSA reagent. PSA Totalon 05-25-2024 Prostate specific Ag [Mass/Vol] 0.6 ng/mL Normal 0.1-3.5 [facility] Comment on above: Result Comment: The concentration of PSA determined by different manufacturers can vary due to differences in assay methods and reagent specificity. Values obtained from different assay methods cannot be used interchangeably. The methodology used for this result was chemiluminescence using [employer]'s Access Hybritech PSA reagent. Performed By: #### 1 [id number] #### [facility] [address] [place] [address] LE Venous Duplex Righton 11-29-2023 LE Venous [...] Dyllan Kitchen M.D. Transcribed by: REGLA Technologist: Normal [facility] Consent for Treatmenton 11-06 Consent for Treatment [id number] 0TIFF Normal [facility] Physician Orderon 11-18-2023 Physician Order [id number] 0TIFF Normal [facility] CBC w/ Auto Diffon 4 Basophils/100 WBC (Bld) 0.8 % Normal 0.0-2.0 [facility] Comment on above: Performed By: #### 2 [id number], [id number], 9418873, 8240608 #### [facility] [address] [place] [address] Basophils/Leukocytes Auto (Bld) [Pure # fraction] 0.1 E9/L Normal 0.0-0.2 [facility] Comment on above: Performed By: #### 2 744456, [id number], 5248257, 0510858 #### [facility] [address] [place] [address] Eosinophils (Bld) [#/Vol] 0.3 E9/L Normal 0.0-0.5 [facility] Comment on above: Performed By: #### 2 671990, 26849080, 7085969, 3416362 #### [facility] [address] [place] [address] Eosinophils/100 WBC (Bld) 3.4 % Normal 0.0-8.0 [facility] Comment on above: Performed By: #### 2 599103, [id number], 9287024, 6193123 #### [facility] [address] [place] [address] Erythrocyte distribution width (RBC) [Ratio] 13.6 % Normal 10.9-14.2 [facility] Comment on above: Performed By: #### 2 451383, [id number], 4193866, 3925849 #### [facility] [address] [place] [address] Hematocrit (Bld) [Volume fraction] 39.9 % Normal 37.7-49.0 [facility] Comment on above: Performed By: #### 2 054093, 13043168, 9472864, 2699389 #### [facility] [address] [place] [address] Hemoglobin (Bld) [Mass/Vol] 13.7 g/dL Normal 13.5-17.5 [facility] Comment on above: Performed By: #### 2 319446, 10446561, 8861544, 3007318 #### [facility] [address] [place] [address] Lymphocytes (Bld) [#/Vol] 1.5 E9/L Normal 1.0-4.0 [facility] Comment on above: Performed By: #### 2 949302, 15522059, 6662072, 2812642 #### [facility] [address] [place] [address] Lymphocytes/100 WBC (Bld) 20.2 % Normal 14.0-50.0 [facility] Comment on above: Performed By: #### 2 465495, 00851263, 2023075, 8653614 #### [facility] [address] [place] [address] MCH (RBC) [Entitic mass] 30.4 pg Normal 27.0-34.0 [facility] Comment on above: Performed By: #### 2 156464, 28753995, 1609384, 4803021 #### [facility] [address] [place] [address] MCHC (RBC) [Mass/Vol] 34.3 g/dL Normal 31.4-36.0 [facility] Comment on above: Performed By: #### 2 079835, 44097439, 8503163, 1945402 #### [facility] [address] [place] [address] MCV (RBC) [Entitic vol] 88.6 fL Normal 80.0-100.0 [facility] Comment on above: Performed By: #### 2 092432, 77788926, 5468738, 1761442 #### [facility] [address] [place] [address] Monocytes (Bld) [#/Vol] 0.7 E9/L Normal 0.2-1.0 [facility] Comment on above: Performed By: #### 2 220805, 35080404, 6610972, 6871656 #### [facility] [address] [place] [address] Neutrophils (Bld) [#/Vol] 5.0 E9/L Normal 2.0-7.5 [facility] Comment on above: Performed By: #### 2 185020, 52655800, 9744413, 5042441 #### [facility] [address] [place] [address] Neutrophils/100 WBC (Bld) 66.1 % Normal 36.0-75.0 [facility] Comment on above: Performed By: #### 2 508033, 62032484, 1485356, 3305256 #### [facility] [address] [place] [address] Platelet mean volume (Bld) [Entitic vol] 9.1 fL Normal 6.4-10.8 [facility] Comment on above: Performed By: #### 2 564142, 85009482, 4198190, 3503365 #### [facility] [address] [place] [address] Platelets (Bld) [#/Vol] 216.0 E9/L Normal 150.0-500.0 [facility] Comment on above: Performed By: #### 2 309914, 53076898, 7388692, 9666266 #### [facility] [address] [place] [address] RBC (Bld) [#/Vol] 4.5 E12/L Normal 4.3-5.9 [facility] Comment on above: Performed By: #### 2 377604, 41192075, 0543472, 0238876 #### [facility] [address] [place] [address] WBC corrected for nucl RBC Auto (Bld) [#/Vol] 7.5 E9/L Normal 4.0-11.0 [facility] Comment on above: Performed By: #### 2 118192, 10758086, 2981400, 7502905 #### [facility] [address] [place] [address] CHEMISTRYOrdered By: SYSTEM SYSTEM on 10-21-2023 Albumin [...] 10-21-2023 Albumin [Mass/Vol] 4.3 g/dL Normal 3.3-5.0 [facility] Comment on above: Performed By: #### 2 046765, 32381420, 1444480, 2359165 #### [facility] [address] [place] [address] Albumin/Globulin (S) [Mass conc ratio] 1.7 Normal 1.1-2.2 [facility] Comment on above: Performed By: #### 2 345209, 95625329, 5866499, 3810420 #### [facility] [address] [place] [address] ALP [Catalytic activity/Vol] 66 Int._Unit/L Normal 21-98 [facility] Comment on above: Performed By: #### 2 086987, 04044003, 4339523, 8117363 #### [facility] [address] [place] [address] ALT No additional P-5'-P [Catalytic activity/Vol] 17 Int._Unit/L Normal 6-46 [facility] Comment on above: Performed By: #### 2 218647, 29762251, 8240361, 4473253 #### [facility] [address] [place] [address] Anion gap [Moles/Vol] 13 mmol/L Normal 6-16 [facility] Comment on above: Performed By: #### 2 859850, 39128663, 1035126, 4950292 #### [facility] [address] [place] [address] AST [Catalytic activity/Vol] 17 Int._Unit/L Normal 5-43 [facility] Comment on above: Performed By: #### 2 568219, 95340487, 2159886, 8173113 #### [facility] [address] [place] [address] Bilirubin [Mass/Vol] 0.9 mg/dL Normal 0.0-1.1 [facility] Comment on above: Performed By: #### 2 999663, 59144277, 1495202, 7694618 #### [facility] [address] [place] [address] Calcium [Mass/Vol] 8.7 mg/dL Low 8.9-11.1 [facility] Comment on above: Performed By: #### 2 801806, 26534401, 6226312, 1242907 #### [facility] [address] [place] [address] Chloride [Moles/Vol] 104 mmol/L Normal 101-111 [facility] Comment on above: Performed By: #### 2 382962, 49444393, 2819855, 5464830 #### [facility] [address] [place] [address] CO2 [Moles/Vol] 27 mmol/L Normal 21-31 [facility] Comment on above: Performed By: #### 2 998976, 65268084, 4445294, 8265767 #### [facility] [address] [place] [address] Creatinine [Mass/Vol] 0.6 mg/dL Normal 0.5-1.3 [facility] Comment on above: Performed By: #### 2 562485, 94898755, 6228286, 0932757 #### [facility] [address] [place] [address] Globulin (S) [Mass/Vol] 2.6 g/dL Normal 1.4-4.0 [facility] Comment on above: Performed By: #### 2 171869, 74632567, 1188430, 9910752 #### [facility] [address] [place] [address] Glucose [Mass/Vol] 94 mg/dL Normal 55-199 [facility] Comment on above: Performed By: #### 2 141353, 23679488, 2217839, 7719163 #### [facility] [address] [place] [address] Potassium [Moles/Vol] 3.4 mmol/L Low 3.5-5.3 [facility] Comment on above: Performed By: #### 2 824705, 04247430, 1190856, 7696570 #### [facility] [address] [place] [address] Protein [Mass/Vol] 6.9 g/dL Normal 6.0-7.8 [facility] Comment on above: Performed By: #### 2 412848, 93906474, 2082458, 9979748 #### [facility] [address] [place] [address] Sodium [Moles/Vol] 141 mmol/L Normal 135-145 [facility] Comment on above: Performed By: #### 2 606258, 66365652, 0794336, 5485023 #### [facility] [address] [place] [address] Urea nitrogen [Mass/Vol] 9 mg/dL Normal 5-21 [facility] Comment on above: Performed By: #### 2 369460, 00345315, 0148649, 5775713 #### [facility] [address] [place] [address] Urea nitrogen/Creatinine [Mass ratio] 15 No Units Normal 10-20 [facility] Comment on above: Performed By: #### 2 562662, 01300824, 4441730, 4143051 #### [facility] [address] [place] [address] Consent for Treatmenton 10-06 Consent for Treatment [id number] 0TIFF Normal [facility] HEMATOLOGYOrdered By: SYSTEM SYSTEM on 10-21-2023 Basophils/100 [...] 10-21-2023 Cholesterol [Mass/Vol] 172 mg/dL Normal 120-200 [facility] Comment on above: Performed By: #### 2 682109, 47477338, 4603543, 7005425 #### [facility] [address] [place] [address] Cholesterol in HDL [Mass/Vol] 32 mg/dL Invalid Interpretation Code [facility] Comment on above: Result Comment: '>= 60 LOW RISK' '<= 40 HIGH RISK' Performed By: #### 2 683181, 29055834, 1635758, 5138260 #### [facility] [address] [place] [address] Cholesterol in LDL [Mass/Vol] 107 mg/dL Normal <=129 [facility] Comment on above: Performed By: #### 2 530330, 91869051, 5406305, 5226359 #### [facility] [address] [place] [address] Cholesterol in VLDL [Mass/Vol] 38 mg/dL Normal 7-40 [facility] Comment on above: Performed By: #### 2 066873, 97723966, 7107759, 5110170 #### [facility] [address] [place] [address] Triglyceride [Mass/Vol] 192 mg/dL High <=149 F [facility] Comment on above: Performed By: #### 2 [id number], [id number], [id number], [id number] #### [facility] [address] [place] [address] Physician Orderon 10-21-2023 Physician Order [id number] Normal [facility] eGFRon 10-21-2023 eGFR 105 mL/min/1.73 m2 Normal >=59 [facility] Comment on above: Order Comment: Order added by Discern Expert. Performed By: #### 2 [id number], [id number], [id number], [id number] #### [facility] [address] [place] [address] Screenson 06-16-2023 Screens [id number] Normal [facility] Ambulatory Visit Summaryon 1 08-15-2022 Ambulatory Visit [...] [facility] [address] , [place] [address]- Medications What How Much When Why Instructions [...] colonoscopy Fat (more content not included)... Normal [facility] Patient Educationon 06-15-20 23 Patient Education Urology [...] Follow these instructions at home: ? Take frde-hmo-zcprokw and prescription medicines only as told by [...] the medicine (more content not included)... Normal [facility] Office/Clinic Noteon 06-15-2023 Urology Office/Clinic Note [...] [facility] [address], [place] [address]- Additional Instructions: 1 yr with PSA, JEANNA Patient Education Benign Prostatic Hyperplasia Angelica Smith, personally scribed for Dr. Morrison on 06/15/2023 [...] Elevated PS (more content not included)... Normal [facility] Comment on above: Result Comment: Elec tronically Signed By: TAMIKO SAEZ, Luiz Jackson\.br\Date and Time Signed: 06/15/23 14:26 EST\.br\Electronically Co-Signed By: Angleica Colmenares\.br\Date and Time Co-Signed: 06/15/23 14:24 EST CHEMISTRYOrdered By: SYSTEM SYSTEM on 09-29-2022 Anion [...] Normal >=59mL/min/ 1.73 m2 FT Chem S Glucose [Mass/Vol] 107 mg/dL Normal 55 - 199 mg/dL [facility] Potassium [Moles/Vol] 3.8 mmol/L Normal 3.5 - 5.3 mmol/L [facility] Remisol Sodium [Moles/Vol] 136 mmol/L Normal 135 - 145 mmol/L [facility] Remisol Urea nitrogen [Mass/Vol] 17 mg/dL Normal 5 - 21 mg/dL [facility] Remisol Urea nitrogen/Creatinine [Mass ratio] 24 mg/mg High 10 - 20 [facility] and C hemistry - challengeOrdered By: SYSTEM SYSTEM on 09-29-2022 CO2 [Moles/Vol] 28 mmol/L Normal 21 - 31 mmol/L [facility] - Hematology and Cell countsOrdered By: Leonid Leiva on 09-29-2022 HbA1c (Bld) [Mass fraction] 5.8 % Normal <=5.9% [facility] ChemAutoSS No Panel Informationon 09-29 11 {mEq/L} Normal 6-16 [facility] 600 DO Work Phone: 101 mmol/L Normal 101-111 [facility] [employer] 600 DO Work Phone: 3.8 mmol/L Normal 3.5-5.3 [facility] k 600 DO Work Phone: 136 mmol/L Normal 135-145 [facility] k 600 DO Work Phone: 8.9 mg/dL Normal 8.9-11.1 [facility] Work Phone: 24 {No_Units} above high threshold 10-20 [facility] DO Work Phone: 0.7 mg/dL Normal 0.5-1.3 [facility] DO Work Phone: 17 mg/dL Normal 5-21 [facility] DO Work Phone: 107 mg/dL Normal 55-199 [facility] k 600 DO Work Phone: Comment on above: If this glucose resu lt represents a fasting glucose, interpretation should refer to the following reference range: 55-99 mg/dL >60 Normal >=59 [facility] [employer] 600 DO Work Phone: Comment on above: eGFR is race adjuste d. AA=. Chronic kidney disea se could be indicated at eGFR's of less than 60 mL/min/1.73m2. Kidney failure is indicated at less than 15 mL/min/1.73m2. Falls Screening (Age 18+)on 09-28-2022 Fall risk assessment a) No falls within the last year [facility] [employer] 600 DO Work Phone: Office Visit (Cardiology)on 09-28-2022 Follow-up visit Diagnoses/Problems Assessed Essential hypertension (401.9) (I10) Morbid obesity with BMI of 40.0-44.9, adult (278.01,V85.41) (E66.01,Z68.41) Orders Essential hypertension, Hyperlipidemia, Morbid obesity with BMI of 40.0-44.9, adult, Screening for diabetes mellitus Hemoglobin A1C; Status:Active - Retrospective Authorization; Requested for:[id number]; Essential hypertension, Non-ischemic cardiomyopathy Basic Metabolic Panel; Status:Active - Retrospective Authorization; Requested for:[id number]; Hyperlipidemia, Screening for diabetes mellitus Glucose, Fasting; Status:Active - Retrospective Authorization; Requested for:[id number]; Chief Complaint PHU LOPEZ is being seen [...] DAILY. Multi-Vitamin Oral TabletTAKE 1 TABLET DAILY. [place]-3 [place] DIRECTED. PARoxetine HCl - 20 MG [...] PHU LOPEZ; : 1955; Recorded: 28Sep2022 12:04PMRecorded: 41Tum0491 11:58AMRecorded: 79Mya0707 11:57AM Igruihtr329704, LUE, Tuncuat724, RUE, Sitting Jqihfcfbp4260, LUE, Velrptb23, RUE, Sitting Heart Rate80, R Radial Height5 ft 10 in Rwuqzb775 lb BMI Efvkomirar54.89 kg/m2 BSA Calculated2.43 Falls Screening (Age 18+)a) No falls within the last year Normal [employer] Office Visit (Cardiology)on 09-10-2022 Follow-up visit Diagnoses/Problems [...] Weight Tips; Status:Complete - Retrospective Authorization; Done: [id number] Some eating tips that can help you lose weight.; Status:Complete - Retrospective Authorization; Done: [id number] SocHx: Never a smoker Tobacco Use Screening; Status:Complete; Done: [id number] Patient Instructions Please bring all medicines, vitamins, [...] 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 He reports no symptoms of dyspnea or [...] has been very compliant Delores Ac MD, [facility] Surgical History Problems History of Complete [...] DAILY. Multi-Vitamin Oral TabletTAKE 1 TABLET DAILY. [place]-3 CAP[place]KE DIRECTED. PARoxetine HCl - 20 MG [...] negative for complaint. Vitals Vital Signs Recorded: 76Mos8399 10:02AM Heart Rate88, L Radial Efmvtrod490, RUE, Sitting Vnbzdfqiz50, RUE, Sitting Height5 ft 10 in Mcjyls175 lb BMI Kwzcnknvzz32.32 kg/m2 BSA Calculated2.44 Tobacco Useb) No PHQ-2 #1. Over the last 2 weeks have you felt down, depressed or hopeless? (If yes, answer PHQ-9 below)No PHQ-2 #2. Over the last 2 weeks have you felt little i (more content not included)... Normal [employer] Tobacco Screening.on 023 Adult depression screening assessment No [facility] [employer] 600 DO Work Phone: Fall risk assessment a) No falls within the last year [facility] [employer] k 600 DO Work Phone: Tobacco use status [facility] b) Mala Noguera [facility] DO Work Phone: Chay 04-27-2022 L -- ---- Specimen: [id number] Received: 04/27/22 Status: HALLIE De Jesusnuno Num: [id number] Spec Type: Surgical Subm Dr: Luiz Morrison MD Tissues: A Prostate - Tur (PROSTATE TURP) Procedures: LISSETH Tavares/Lloyd Goff/Nicanor L4 ---- Age/ Patient Sex Location Account Attending Physician ---- Phu Lopez 67/M [place] [id number] Luiz Morrison MD ---- SPEC NUM: [id number] RECD: 04/27/22 STATUS: HALLIE WASHBURN NUM: [id number] CHAIM: 04/27/[address]: Luiz Morrison MD ENTERED: 04/27/[address] [facility] [address]: SPEC TYPE: Surgical DEPT: S ORDERED: HE Stain/8, Gross/Micro L4 ORDERED: HE Stain/8, Gross/Micro L4 Supplemental Report Addendum 1 Entered: 05/03/22 PIN cocktail immunohistochemical study has been performed on block A1. No definite evidence of malignancy identified on the area of concern. [id number] Addendum Signed (signature on file) Landon Perez [...] result will follow supplement report. ---- Specimen: [id number] Received: 04/27/22 Status: HALLIE Washburn Num: [id number] Spec Type: Surgical Subm Dr: Luiz Morrison MD Tissues: A Prostate - Tur (PROSTATE TURP) Procedures: LISSETH Tavares/Lloyd Goff/Nicanor L4 ---- Patient: Phu Lopez [id number] (Continued) ---- Specimen: [id number] Received: 04/27/22 (Continued) Signed (signature on file) Casa Desai MD (Michelle) 04/30/22 1044 ---- Specimen: [id number] Received: 04/27/22 Status: HALLIE Washburn Num: [id number] Spec Type: Surgical Subm Dr: Luiz Morrison MD Tissues: A Prostate - Tur (PROSTATE TURP) Procedures: LISSETH Tavares/Lloyd Goff/Nicanor L4 ---- Patient: Phu Lopez [id number] (Continued) ---- Specimen: [id number] Received: 04/27/22 (Continued) Clinical Information BPH with obstruction Gross Description Received in formalin labeled with the patient's name, number and prostate is a 12 g, 6.5 x 5.0 x 2.5 cm aggregate of mooney-campuzano rubbery tissue fragments.. Entirely submitted in nine cassettes labeled A1-A9. Microscopic Description Nine glass slides with H E stained material have been examined. Pathologist interpretation was performed at [facility]. The microscopic findings support the above pathologic diagnosis. CPT Codes 55940 ---- ---- Specimen: [id number] Received: 04/27/22 Status: HALLIE Washburn Num: [id number] Spec Type: Surgical Subm Dr: Luiz Morrison MD Tissues: A Prostate - Tur (PROSTATE TURP) Procedures: HE Stain/8, Gross/Micro L4 ---- Patient: Phu Lopez [id number] (Continued) ---- Signed (signature on file) Casa (Starla) MD Giselle 04/30/22 1044 Normal [facility] SARS-CoV-2 (COVID-19) RNA MARY+probe Ql (Unsp spec) Negative Normal Negative [facility] Comment on above: Order Comment: Healt hcare Worker?: N Result Comment: Testing for SARS-CoV-2 by RT-PCR This test was developed and its performance characteristics determined by [facility] [employer], [employer] ([employer]) and validated at the [facility]. This test has not been FDA cleared [...] is terminated or revoked sooner. PERFORMED BY: [facility] [address] [place] [id number] PATHOLOGIST VOCATIONAL NURSING INSTRUCTOR TOI BOWER M.D. Performed By: #### C OVID 19 [facility] #### [facility] [address] COVID-19 Positive/NegativeOr dered By: Luiz Morrison on 04-23-2022 SARS-CoV-2 (COVID-19) N gene MARY+probe Ql (Resp) Negative Negative [facility] Comment on above: Testing for SARS-CoV -2 by RT-PCR This test was developed and its performance characteristics determined by [facility], [employer] ([employer]) and validated at the [facility]. This test has not been FDA cleared [...] aPTT Coag (PPP) [Time] 29.4 s 25.1-36.5 [facility] Basic Metabolic Panelon Anion gap [Moles/Vol] 13.0 mmol/L Normal 6.0-15.0 [facility] Comment on above: Performed By: #### P T, PTT, CBC, BMP #### [facility] [address] Calcium [Mass/Vol] 9.4 mg/dL Normal 8.2-10.2 [facility] Comment on above: Result Comment: PERF ORMED BY: [place] [address] PATHOLOGIST VOCATIONAL NURSING INSTRUCTOR TOI BOWER M.D. Performed By: #### P T, PTT, CBC, BMP #### [facility] [address] Chloride [Moles/Vol] 100 mmol/L Normal 95-114 [facility] Comment on above: Performed By: #### P T, PTT, CBC, BMP #### [facility] [address] CO2 [Moles/Vol] 26.6 mmol/L Normal 22.0-30.0 [facility] Comment on above: Performed By: #### P T, PTT, CBC, BMP #### [address] Creatinine [Mass/Vol] 0.60 mg/dL Low 0.64-1.27 [facility] Comment on above: Performed By: #### P T, PTT, CBC, BMP #### [address] Estimated GFR ( Pilar > 60 [facility] Comment on above: Result Comment: GFR estimated reference range: According to KDOQI guidelines, <60 ml/min/1.73m2 is sufficient to diagnose a patient with chronic kidney disease. Performed By: #### P T, PTT, CBC, BMP #### [facility] [address] [place] [address] [place] Estimated GFR (Non- Am > 60 [facility] Comment on above: Performed By: #### P T, PTT, CBC, BMP #### [facility] [address] [place] [address] [place] Glucose [Mass/Vol] 112 mg/dL High 70-100 [facility] Comment on above: Result Comment: [place] om Glucose Reference Range is dependent on time and content of last meal. Glucose of more than 200 mg/dL in a nonstressed, ambulatory subject supports the diagnosis of Diabetes Mellitus. ADA recommended reference range Performed By: #### P T, PTT, CBC, BMP #### [facility] [address] Potassium [Moles/Vol] 3.6 mmol/L Normal 3.5-5.1 [facility] Comment on above: Performed By: #### P T, PTT, CBC, BMP #### [facility] [address] Sodium [Moles/Vol] 136 mmol/L Normal 136-146 [facility] Comment on above: Performed By: #### P T, PTT, CBC, BMP #### [facility] [address] Urea nitrogen [Mass/Vol] 7 mg/dL Low 9-23 [facility] Comment on above: Performed By: #### P T, PTT, CBC, BMP #### [facility] [address] Basophils Auto (Bld) [#/Vol] Ordered By: Luiz Morrison on 04-13-2022 Basophils (Bld) [#/Vol] 0.0 10*3/uL 0.0-0.2 [facility] Basophils/100 WBC Auto (Bld) Ordered By: Luiz Morrison on 04-13-2022 Basophils/100 WBC (Bld) 0.5 % . F [facility] Blood hemoglobin measurement (mass/volume)Ordered By: Luiz Morrison on 04-13-2022 Hemoglobin (Bld) [Mass/Vol] 14.4 g/dL 13.0-17.0 [facility] Blood leukocytes automated c ount (number/volume)Ordered By: Luiz Morrison on 04-13-2022 WBC (Bld) [#/Vol] 7.0 10*3/uL 4.5-11.0 [facility] Complete Blood Count Auto Di ffon 04-13-2022 Basophils (Bld) [#/Vol] 0.0 10*3/uL Normal 0.0-0.2 [facility] Comment on above: Result Comment: PERF ORMED BY: [place] [address] PATHOLOGIST VOCATIONAL NURSING INSTRUCTOR TOI BOWER M.D. Performed By: #### P T, PTT, CBC, BMP #### [facility] [address] Basophils/100 WBC (Bld) 0.5 % Normal . F [facility] Comment on above: Performed By: #### P T, PTT, CBC, BMP #### [facility] [address] [place] [address] Eosinophils (Bld) [#/Vol] 0.2 10*3/uL Normal 0.0-0.45 [facility] Comment on above: Performed By: #### P T, PTT, CBC, BMP #### [address] Eosinophils/100 WBC (Bld) 2.4 % Normal . [facility] Comment on above: Performed By: #### P T, PTT, CBC, BMP #### [address] Erythrocyte distribution width (RBC) [Ratio] 13.3 % Normal 12.0-14.8 [facility] Comment on above: Performed By: #### P T, PTT, CBC, BMP #### [facility] [address] [place] [address] Hematocrit (Bld) [Volume fraction] 42.6 % Normal 38.8-50.0 [facility] Comment on above: Performed By: #### P T, PTT, CBC, BMP #### [facility] [address] [place] [address] [place] Hemoglobin (Bld) [Mass/Vol] 14.4 g/dL Normal 13.0-17.0 [facility] Comment on above: Performed By: #### P T, PTT, CBC, BMP #### [facility] [address] [place] [address] [place] Lymphocytes (Bld) [#/Vol] 1.2 10*3/uL Normal 1.00-4.8 [facility] Comment on above: Performed By: #### P T, PTT, CBC, BMP #### [address] Lymphocytes/100 WBC (Bld) 17.7 % Normal . [facility] Comment on above: Performed By: #### P T, PTT, CBC, BMP #### [address] MCH (RBC) [Entitic mass] 30.6 pg Normal 27.5-35.2 [facility] Comment on above: Performed By: #### P T, PTT, CBC, BMP #### [address] MCV (RBC) [Entitic vol] 90.7 fL Normal 83.5-101 F [facility] Comment on above: Performed By: #### P T, PTT, CBC, BMP #### [address] Mean Corpuscular HGB Conc 33.8 g/dL Normal 32.5-35.6 [facility] Comment on above: Performed By: #### P T, PTT, CBC, BMP #### [address] Monocytes (Bld) [#/Vol] 0.7 10*3/uL Normal 0.0-0.8 [facility] Comment on above: Performed By: #### P T, PTT, CBC, BMP #### [address] Monocytes/100 WBC (Bld) 9.7 % Normal . F [facility] Comment on above: Performed By: #### P T, PTT, CBC, BMP #### [address] Neutrophils (Bld) [#/Vol] 4.9 10*3/uL Normal 1.8-7.7 [facility] Comment on above: Performed By: #### P T, PTT, CBC, BMP #### [address] [place] [address] [place] Neutrophils/100 WBC (Bld) 69.7 % Normal . [facility] Comment on above: Performed By: #### P T, PTT, CBC, BMP #### [facility] [address] Nucleated RBC/100 WBC (Bld) [Ratio] 0.0 % Normal 0-0.5 [facility] Comment on above: Performed By: #### P T, PTT, CBC, BMP #### [facility] [address] Platelet mean volume (Bld) [Entitic vol] 9.2 fL Normal 6.6-10.1 [facility] Comment on above: Performed By: #### P T, PTT, CBC, BMP #### [facility] [address] Platelets (Bld) [#/Vol] 265 10*3/uL Normal 150-450 [facility] Comment on above: Performed By: #### P T, PTT, CBC, BMP #### [facility] [address] RBC (Bld) [#/Vol] 4.70 10*6/uL Normal 3.90-5.60 [facility] Comment on above: Performed By: #### P T, PTT, CBC, BMP #### [place] [address] [place] WBC (Bld) [#/Vol] 7.0 10*3/uL Normal 4.5-11.0 [facility] Comment on above: Performed By: #### P T, PTT, CBC, BMP #### [place] [address] [place] Creatinine and Glomerular fi ltration rate.predicted panel (S/P/Bld)Ordered By: Luiz Morrison on 04-13-2022 Creatinine [Mass/Vol] 0.60 mg/dL 0.64-1.27 [facility] ECG 12 lead ECGon 04-13-2022 ECG 12 lead ECG [facility] [address] Electrocardiograph Report Signed Patient: Phu Lopez MR#: [id number] : 1955 Acct:[id number] Age/Sex: 67 / M ADM Date: 04/13/22 Loc: PS Room: Type: [facility] CLI Attending Dr: Luiz Morrison MD Ordering Provider: [...] Signed By Roxie Gusman MD 1431 Normal [facility] Eosinophils Auto (Bld) [#/Vo l]Ordered By: Luiz Morrison on 04-13-2022 Eosinophils (Bld) [#/Vol] 0.2 10*3/uL 0.0-0.45 [facility] Eosinophils/100 WBC Auto (Bl d)Ordered By: Luiz Morrison on 04-13-2022 Eosinophils/100 WBC (Bld) 2.4 % . [facility] Erythrocyte distribution wid th Auto (RBC) [Ratio]Ordered By: Luiz Morrison on 04-13-2022 Erythrocyte distribution width (RBC) [Ratio] 13.3 % 12.0-14.8 [facility] Estimated glomerular filtrat ion rate (GFR) non- AmericanOrdered By: Luiz Morrison on 04-13-2022 GFR/1.73 sq M.predicted among non-blacks MDRD (S/P/Bld) [Vol rate/Area] > 60 mL/Min [facility] Hematocrit Auto (Bld) [Volum e fraction]Ordered By: Luiz Morrison on 04-13-2022 Hematocrit (Bld) [Volume fraction] 42.6 % 38.8-50.0 [facility] Laboratory - CoagulationOrde red By: Luiz Morrison on 04-13-2022 PT Coag (PPP) [Time] 10.8 s 9.0-12.9 [facility] - Hematology and Cell countsOrdered By: Luiz Morrison on 04-13-2022 Nucleated RBC/100 WBC (Bld) [Ratio] 0.0 % 0-0.5 [facility] Lymphocytes Auto (Bld) [#/Vo l]Ordered By: Luiz Morrison on 04-13-2022 Lymphocytes (Bld) [#/Vol] 1.2 10*3/uL 1.00-4.8 [facility] Lymphocytes/100 WBC Auto (Bl d)Ordered By: Luiz Morrison on 04-13-2022 Lymphocytes/100 WBC (Bld) 17.7 % . [facility] MCH Auto (RBC) [Entitic mass ]Ordered By: Luiz Morrison on 04-13-2022 MCH (RBC) [Entitic mass] 30.6 pg 27.5-35.2 [facility] MCHC Auto (RBC) [Mass/Vol]Or dered By: Luiz Morrison on 04-13-2022 MCHC (RBC) [Mass/Vol] 33.8 g/dL 32.5-35.6 [facility] MCV Auto (RBC) [Entitic vol] Ordered By: Luiz Morrison on 04-13-2022 MCV (RBC) [Entitic vol] 90.7 fL 83.5-101 F [facility] Monocytes Auto (Bld) [#/Vol] Ordered By: Luiz Morrison on 04-13-2022 Monocytes (Bld) [#/Vol] 0.7 10*3/uL 0.0-0.8 [facility] Monocytes/100 WBC Auto (Bld) Ordered By: Luiz Morrison on 04-13-2022 Monocytes/100 WBC (Bld) 9.7 % . F [facility] Neutrophils Auto (Bld) [#/Vo l]Ordered By: Luiz Morrison on 04-13-2022 Neutrophils (Bld) [#/Vol] 4.9 10*3/uL 1.8-7.7 [facility] Neutrophils/100 WBC Auto (Bl d)Ordered By: Luiz Morrison on 04-13-2022 Neutrophils/100 WBC (Bld) 69.7 % . [facility] No Panel InformationOrdered By: Luiz Morrison on 04-13-2022 Estimated GFR () > 60 mL/Min [facility] Comment on above: GFR estimated refere nce range: According to KDOQI guidelines, <60 ml/min/1.73m2 is sufficient to diagnose a patient with chronic kidney disease. Pharmacy Creatinine Clearance (Chem N/A [facility] Partial Thromboplastin Timeo n 04-13-2022 aPTT Coag (Bld) [Time] 29.4 s Normal 25.1-36.5 [facility] Comment on above: Result Comment: PERF ORMED BY: [place] [address] PATHOLOGIST VOCATIONAL NURSING INSTRUCTOR TOI BOWER M.D. Performed By: #### P T, PTT, CBC, BMP #### [address] Platelet mean volume Auto (B ld) [Entitic vol]Ordered By: Luiz Morrison on 04-13-2022 Platelet mean volume (Bld) [Entitic vol] 9.2 fL 6.6-10.1 [facility] Platelet poor plasma interna tional normalized ratio (INR) by coagulation assay (relatOrdered By: Luiz Morrison on 04-13-2022 INR Coag (PPP) [Relative time] 1.0 {INR} [facility] Comment on above: INR Therapeutic Rang e [...] 04-13-2022 Platelets (Bld) [#/Vol] 265 10*3/uL 150-450 [facility] Prothrombin Time INRon 04-13 INR Coag (PPP) [Relative time] 1.0 {INR} Normal [facility] Comment on above: Result Comment: INR Therapeutic [...] P T, PTT, CBC, BMP #### [facility] [address] PT Coag (PPP) [Time] 10.8 s Normal 9.0-12.9 [facility] Comment on above: Performed By: #### P T, PTT, CBC, BMP #### [facility] [address] RBC Auto (Bld) [#/Vol]Ordere d By: Luiz Morrison on 04-13-2022 RBC (Bld) [#/Vol] 4.70 10*6/uL 3.90-5.60 [facility] Serum or plasma anion gap de terminationOrdered By: Luiz Morrison on 04-13-2022 Anion gap [Moles/Vol] 13.0 mmol/L 6.0-15.0 [facility] Serum or plasma calcium anne urement (mass/volume)Ordered By: Luiz Morrison on 04-13-2022 Calcium [Mass/Vol] 9.4 mg/dL 8.2-10.2 [facility] Serum or plasma chloride neo surement (moles/volume)Ordered By: Luiz Morrison on 04-13-2022 Chloride [Moles/Vol] 100 mmol/L 95-114 [facility] Serum or plasma glucose anne urement (mass/volume)Ordered By: Luiz Morrison on 04-13-2022 Glucose [Mass/Vol] 112 mg/dL 70-100 [facility] Comment on above: ADA recommended refe rence range Random Glucose Reference Range is dependent on time and content of last meal. Glucose of more than 200 mg/dL in a nonstressed, ambulatory subject supports the diagnosis of Diabetes Mellitus. Serum or plasma potassium me asurement (moles/volume)Ordered By: Luiz Morrison on 04-13-2022 Potassium [Moles/Vol] 3.6 mmol/L 3.5-5.1 [facility] Serum or plasma sodium measu rement (moles/volume)Ordered By: Luiz Morrison on 04-13-2022 Sodium [Moles/Vol] 136 mmol/L 136-146 [facility] Serum or plasma total carbon dioxide measurement (moles/volume)Ordered By: Luiz Morrison on 04-13-2022 CO2 [Moles/Vol] 26.6 mmol/L 22.0-30.0 [facility] Serum or plasma urea nitroge n measurement (mass/volume)Ordered By: Luiz Morrison on 04-13-2022 Urea nitrogen [Mass/Vol] 7 mg/dL 9-23 [facility] CHEMISTRYOrdered By: Gabriel rendon on 04-01-2022 HbA1c (Bld) [Mass fraction] 5.3 % Normal <=5.9% [facility] [facility] ChemAutoSS Creatinine (Bld) [Mass/Vol]O rdered By: Luiz Morrison on 01-21-2022 Creatinine [Mass/Vol] 0.8 mg/dL 0.6-1.3 [facility] Comment on above: ER/ESD physician is notified/shown all ISTAT results. Critical values may be confirmed by laboratory testing if deemed necessary by ER attending doctor. No Panel InformationOrdered By: Luiz Morrison on 01-21-2022 POC Estimated GFR > 60 [facility] Comment on above: GFR estimated refere nce range: According to KDOQI guidelines, <60 ml/min/1.73m2 is sufficient to diagnose a patient with chronic kidney disease. POC Estimated GFR Non- Amer > 60 [facility] CHEMISTRYOrdered By: SYSTEM SYSTEM on 12-22-2021 Free PSA [Mass/Vol] 0.7 ng/mL Invalid Interpretation Code [facility] Remisol Free PSA/Total PSA [Mass fraction] 11.0 % Low >=25.0% [facility] Remisol Prostate specific Ag [Mass/Vol] 5.9 ng/mL [...] 4.4 E12/L Normal 4.3 - 5.9 E12/L FT HemeAutoSS WBC corrected for nucl RBC Auto (Bld) [#/Vol] 8.4 E9/L Normal 4.0 - 11.0 E9/L FT HemeAutoSS CHEMISTRYOrdered By: SYSTEM SYSTEM on 11-19-2021 Creatinine [Mass/Vol] 0.7 mg/dL Normal 0.5 - 1.3 mg/dL [facility] Remisol GFR/1.73 sq M.predicted among blacks MDRD (S/P/Bld) [Vol rate/Area] mL/min/1.73 m2 Normal >=59mL/min/ 1.[address] [facility] Chem S GFR/1.73 sq M.predicted among non-blacks MDRD (S/P/Bld) [Vol rate/Area] mL/min/1.73 m2 Normal >=59mL/min/ 1.[address] [facility] Chem S Tobacco Screening.on 022 Fall risk assessment a) No falls within the last year -[facility] k 600 DO Work Phone: Tobacco use status CPHS b) No M -[facility] k 600 DO Work Phone: CORONAVIRUS 2019 BY PCRon SARS-CoV-2 (COVID-19) RNA MARY+probe Ql (Unsp spec) Not detected Normal Not Detected [facility] Comment on above: Result Comment: . [...] this test method. Fact sheet for providers: https://www.fda.gov/media/408271/download Fact sheet for patients: https://www.fda.gov/media/272854/download This test has received FDA Emergency Use Authorization [EUA] and has been verified by [facility] ([facility]). This test is only authorized for the duration of time that circumstances exist to justify the authorization of the emergency use of in vitro diagnostic tests for the detection of SARS-CoV-2 virus and/or diagnosis of COVID-19 infection under section 564(b)(1) of the Act, 21 U.S.C. 360bbb-3(b)(1), unless the authorization is terminated or revoked sooner. [facility] is certified under CLIA-88 as qualified to perform high complexity testing. Testing is performed in the [facility] laboratories located at [id number] [place] [address]. Performed By: #### C OV19 #### [address] [place] [address] Covid 19 Resultson 1 SARS-CoV-2 (COVID-19) RNA [...] You may also be contacted by the [place] Department of [facility] to see if any [...] or Naproxen (Aleve) can also be used. Hupd-ehw-ogiujwj cough and cold medicines can be used according to the instructions on the package. Some maoq-dfj-efturko medicines also contain acetaminophen. Make sure you [...] water are not available, use alcohol-based hand hemmer chainstitch. Avoid touching your eyes, nose, and mouth [...] for 24 matias (more content not included)... Normal [facility] CORONAVIRUS 2019 BY PCRon DATE OF SYMPTOM ONSET [YYYYMMDD]? [id number] [facility] Comment on above: Performed By: #### C OV19 #### [facility] [address] [place] [address] Lab Specimen Source Nasal, Nasopharyngeal [facility] Comment on above: Performed By: #### C OV19 #### [facility] [address] [place] [address] Provider Note - ED v2on Provider Note [...] SIGNS: T PRBP SpO2O2(LPM) %FiO2 Method 10-Mar-2021 13:09:[id number] 95 PHYSICAL EXAM CONSTITUTIONAL: Appearance: well appearing [...] with instruction (more content not included)... Normal [facility] CORONAVIRUS 2019 BY PCRon SARS-CoV-2 (COVID-19) RNA MARY+probe Ql (Unsp spec) Not detected Normal Not Detected [facility] Comment on above: Result Comment: . [...] patient management decisions. Fact sheet for providers: https://www.fda.gov/media/283103/download Fact sheet for patients: https://www.fda.gov/media/358475/download This test has received FDA Emergency Use Authorization (EUA) and has been verified by [facility] ([facility]). This test is only authorized for the duration of time that circumstances exist to justify the authorization of the emergency use of in vitro diagnostic tests for the detection of SARS-CoV-2 virus and/or diagnosis of COVID-19 infection under section 564(b)(1) of the Act, 21 U.S.C. 360bbb-3(b)(1), unless the authorization is terminated or revoked sooner. [facility] is certified under CLIA-88 as qualified to perform high complexity testing. Testing is performed in the [facility] laboratories located at [address] [place] [address]. Performed By: #### C OV19 #### [address] [place] [address] Covid 19 Resultson 1 SARS-CoV-2 (COVID-19) RNA [...] You may also be contacted by the [facility] to see if any of your [...] or Naproxen (Aleve) can also be used. Wacw-pke-usmakqi cough and cold medicines can be used according to the instructions on the package. Some racv-gxc-aryqwcj medicines also contain acetaminophen. Make sure you [...] water are not available, use alcohol-based hand hemmer chainstitch. Avoid touching your eyes, nose, and mouth [...] like ibuprofen (Motrin) (more content not included)... [facility] CORONAVIRUS 2019 BY PCRon DATE OF SYMPTOM ONSET [YYYYMMDD]? [id number] [facility] Comment on above: Performed By: #### C OV19 #### [facility] [address] [place] [id number] Lab Specimen Source Nasal, Nasopharyngeal [facility] Comment on above: Performed By: #### C OV19 #### [facility] [address] [place] [address] Provider Note - ED v2on 0 Provider Note - ED v2 Provider Note [...] and symptoms. Symptoms have been refractory to drkr-pms-wxeygxx medications.. Triage Information: Most recent Vital Sign [...] Updated: 12-Sep-2020 09:08 by Emile Michelle (PAC) [facility] Provider Note - ED v2on 11 Provider Note - ED v2 Provider Note [...] SIGNS: T PRBP SpO2O2(LPM) %FiO2 Method 07-Jul-2020 13:05:[id number]/ [id number] 97 PHYSICAL EXAM CONSTITUTIONAL: Appearance: well [...] exam a (more content not included)... Normal [facility] URINE CULTURE,BACTERIALon URINE CULTURE,BACTERIAL PATIENT: JONO LOPEZ LOCATION: [facility]#: [id number] : 57 AGE: SEX: M ORDERED BY: CHRISS MARIE SOURCE: URINE COLLECTED: 07/07/20 14:07 ANTIBIOTICS AT CHAIM.: RECEIVED : 07/07/20 19:19 SITE: R E S U L T S URINE CULTURE,BACTERIAL FINAL 07/08/20 12:57 NO SIGNIFICANT GROWTH. Normal [facility] Comment on above: Performed By: #### U [facility] #### [facility] [address] [address] OCT MACULA CIRRUS OU (BOTH E YES) [facility] Vital Signs Date Time Vital Sign Value Performing Clinician Facility 05-10-2024 09:24-0400 Body height 177.8 cm Liliana Waller MD Work Phone: [facility] 05-10-2024 09:24-0400 Body mass index (BMI) [Ratio] 42.62 kg/m2 Liliana Waller MD Work Phone: [facility] 05-10-2024 09:24-0400 Body temperature 98.2 [degF] Liliana Waller MD Work Phone: [facility] 05-10-2024 09:24-0400 Body weight 134.72 kg Liliana Waller MD Work Phone: [facility] 05-10-2024 09:24-0400 Diastolic blood pressure 68 mm[Hg] Liliana Waller MD Work Phone: [facility] 05-10-2024 09:24-0400 Heart rate 67 /min Liliana Waller MD Work Phone: [facility] 05-10-2024 09:24-0400 SaO2% (BldA) [Mass fraction] 97 % Liliana Waller MD Work Phone: [facility] 05-10-2024 09:24-0400 Systolic blood pressure 130 mm[Hg] Liliana Waller MD Work Phone: [facility] 05-07-2024 13:42-0400 Body height 177.8 cm [facility] 05-07-2024 13:42-0400 Body mass index (BMI) [Ratio] 41.7 kg/m2 [facility] 05-07-2024 13:42-0400 Body weight 131.99 kg [facility] 05-07-2024 13:42-0400 Diastolic blood pressure 69 mm[Hg] [facility] 05-07-2024 13:42-0400 Heart rate 78 /min [facility] 05-07-2024 13:42-0400 SaO2% (BldA) [Mass fraction] 96 % [facility] 05-07-2024 13:42-0400 Systolic blood pressure 148 mm[Hg] [facility] 03-12-2024 13:59-0400 Body height 177.8 cm [facility] 03-12-2024 13:59-0400 Body mass index (BMI) [Ratio] 40.7 kg/m2 [facility] 03-12-2024 13:59-0400 Body weight 128.82 kg [facility] 03-12-2024 13:59-0400 Diastolic blood pressure 69 mm[Hg] [facility] 03-12-2024 13:59-0400 Heart rate 75 /min [facility] 03-12-2024 13:59-0400 SaO2% (BldA) [Mass fraction] 94 % [facility] 03-12-2024 13:59-0400 Systolic blood pressure 140 mm[Hg] [facility] 09-30-2023 08:46-0500 Body height 177.8 cm Delores Ac MD Work Phone: [facility] 09-30-2023 08:46-0500 Body mass index (BMI) [Ratio] 42.04 kg/m2 Delores Ac MD Work Phone: [facility] 09-30-2023 08:46-0500 Body weight 132.9 kg Delores Ac MD Work Phone: [facility] 09-30-2023 08:46-0500 Diastolic blood pressure 60 mm[Hg] Delores Ac MD Work Phone: [facility] 09-30-2023 08:46-0500 Heart rate 76 /min Delores Ac MD Work Phone: [facility] 09-30-2023 08:46-0500 Systolic blood pressure 138 mm[Hg] Delores Ac MD Work Phone: [facility] 06-15-2023 13:25-0500 Diastolic blood pressure 90 mm[Hg] Luiz MORRISON [facility] 06-15-2023 13:25-0500 Mean blood pressure 110 mm[Hg] Luiz MORRISON [facility] 06-15-2023 13:25-0500 Systolic blood pressure 150 mm[Hg] Luiz MORRISON [facility] 06-15-2023 13:20-0500 Blood Pressure Location Luiz MORRISON [facility] 06-15-2023 13:20-0500 Diastolic blood pressure 94 mm[Hg] Luiz MORRISON [facility] 06-15-2023 13:20-0500 Heart rate 83 /min Luiz MORRISON [facility] 06-15-2023 13:20-0500 Systolic blood pressure 150 mm[Hg] Luiz MORRISON [facility] 02-21-2023 13:30-0400 Body height 172.72 cm Burak Rangel Other [employer] Other 02-21-2023 13:30-0400 Body mass index (BMI) [Ratio] 44.55 kg/m2 Burak Rangel Other [employer] Other 02-21-2023 13:30-0400 Body weight 132.9 kg Burak Rangel Other [employer] Other 02-21-2023 13:30-0400 Diastolic blood pressure 71 mm[Hg] Burak Rangel Other [employer] Other 02-21-2023 13:30-0400 SaO2% (BldA) [Mass fraction] 96 % Burak Rangel Other [facility] [employer] Other 02-21-2023 13:30-0400 Systolic blood pressure 167 mm[Hg] Burak Rangel Other [facility] [employer] Other 11-03-2022 15:48-0400 Blood Pressure Location Luiz MORRISON [facility] 11-03-2022 15:48-0400 Diastolic blood pressure 76 mm[Hg] Luiz MORRISON [facility] 11-03-2022 15:48-0400 Heart rate 76 /min Luiz MORRISON [facility] 11-03-2022 15:48-0400 Systolic blood pressure 138 mm[Hg] Luiz MORRISON [facility] 09-28-2022 12:04-0500 Diastolic blood pressure 60 mm[Hg] Terri Allsop Work Phone: [facility] 600 DO Work Phone: 09-28-2022 12:04-0500 Systolic blood pressure 118 mm[Hg] Terri Allsop Work Phone: [facility] [employer] 600 DO Work Phone: 09-28-2022 11:58-0500 Diastolic blood pressure 42 mm[Hg] Terri Allsop Work Phone: [facility] [employer] 600 DO Work Phone: 09-28-2022 11:58-0500 Systolic blood pressure 118 mm[Hg] Terri Allsop Work Phone: [facility] 600 DO Work Phone: 09-28-2022 11:57-0500 Body height 177.8 cm Terri Powellsop Work Phone: [facility] 600 DO Work Phone: 09-28-2022 11:57-0500 Body mass index (BMI) [Ratio] 40.89 kg/m2 Terri Allsop Work Phone: [facility] 600 DO Work Phone: 09-28-2022 11:57-0500 Body surface area Derived from formula 2.43 m2 Terri Powellsop Work Phone: [facility] [place] 600 DO Work Phone: 09-28-2022 11:57-0500 Body weight 129.28 kg Terri Powellsop Work Phone: [facility] 600 DO Work Phone: 09-28-2022 11:57-0500 Diastolic blood pressure 44 mm[Hg] Terri Powellsop Work Phone: [facility] 600 DO Work Phone: 09-28-2022 11:57-0500 Heart rate 80 /min Terri Allsop Work Phone: [facility] 600 DO Work Phone: 09-28-2022 11:57-0500 Systolic blood pressure 120 mm[Hg] Terri Allsop Work Phone: [facility] 600 DO Work Phone: 09-10-2022 10:02-0500 Body height 177.8 cm Terri Allsop Work Phone: [facility] 600 DO Work Phone: 09-10-2022 10:02-0500 Body mass index (BMI) [Ratio] 41.32 kg/m2 Terri Powellsop [facility] 600 DO Work Phone: 09-10-2022 10:02-0500 Body surface area Derived from formula 2.44 m2 Terri Powellsop Work Phone: [facility] 600 DO Work Phone: 09-10-2022 10:02-0500 Body weight 130.64 kg Terri Powellsop Work Phone: [facility] 600 DO Work Phone: 09-10-2022 10:02-0500 Diastolic blood pressure 70 mm[Hg] Terri Powellsop Work Phone: [facility] [employer] 600 DO Work Phone: 09-10-2022 10:02-0500 Heart rate 88 /min Terri Powellsop Work Phone: [facility] 600 DO Work Phone: 09-10-2022 10:02-0500 Systolic blood pressure 162 mm[Hg] Terri Powellsop Work Phone: [facility] [employer] 600 DO Work Phone: 06-24-2022 13:10-0500 Blood Pressure Location [facility] 06-24-2022 13:10-0500 Diastolic blood pressure 87 mm[Hg] [facility] 06-24-2022 13:10-0500 Heart rate 91 /min [facility] 06-24-2022 13:10-0500 Respiratory rate 21 /min [facility] 06-24-2022 13:10-0500 SaO2% (BldA) [Mass fraction] 97 % [facility] 06-24-2022 13:10-0500 Systolic blood pressure 152 mm[Hg] [facility] 06-24-2022 13:05-0500 Blood Pressure Location [facility] 06-24-2022 13:05-0500 Diastolic blood pressure 94 mm[Hg] [facility] 06-24-2022 13:05-0500 Heart rate 91 /min [facility] 06-24-2022 13:05-0500 Respiratory rate 24 /min [facility] 06-24-2022 13:05-0500 SaO2% (BldA) [Mass fraction] 97 % [facility] 06-24-2022 13:05-0500 Systolic blood pressure 164 mm[Hg] [facility] 06-24-2022 13:00-0500 Heart rate 92 /min [facility] 06-24-2022 13:00-0500 Respiratory rate 18 /min [facility] 06-24-2022 13:00-0500 SaO2% (BldA) [Mass fraction] 96 % [facility] 06-24-2022 13:00-0500 Systolic blood pressure 162 mm[Hg] [facility] 06-24-2022 12:40-0500 Body temperature 97.16 [degF] [facility] 06-24-2022 12:37-0500 Respiratory rate 20 /min [facility] 06-24-2022 12:30-0500 Respiratory rate 20 /min [facility] 06-24-2022 12:25-0500 Respiratory rate 20 /min [facility] 06-24-2022 11:31-0500 Body temperature 97.16 [degF] [facility] 05-12-2022 08:06-0400 Blood Pressure Location Luiz MORRISON [facility] 05-12-2022 08:06-0400 Diastolic blood pressure 80 mm[Hg] Luiz MORRISON [facility] 05-12-2022 08:06-0400 Heart rate 80 /min Luiz MORRISON [facility] 05-12-2022 08:06-0400 Respiratory rate 16 /min Luiz MORRISON [facility] 05-12-2022 08:06-0400 Systolic blood pressure 151 mm[Hg] Luiz MORRISON [facility] 04-28-2022 11:54-0400 Body temperature 99.2 [degF] MD Terri Santos Work Phone: [facility] 04-28-2022 11:54-0400 Diastolic blood pressure 91 mm[Hg] MD Terri Santos Work Phone: [facility] 04-28-2022 11:54-0400 Heart rate 92 /min MD Terri Santos Work Phone: [facility] 04-28-2022 11:54-0400 Respiratory rate 18 /min MD Terri Santos Work Phone: [facility] 04-28-2022 11:54-0400 SaO2% (BldA) [Mass fraction] 92 % MD Terri Santos Work Phone: [facility] 04-28-2022 11:54-0400 Systolic blood pressure 173 mm[Hg] MD Terri Santos Work Phone: [facility] 04-28-2022 05:14-0400 Body weight 126.5 kg MD Terri Santos Work Phone: [facility] 04-27-2022 10:48-0400 Inhaled oxygen flow rate 6 L/min MD Terri Santos Work Phone: [facility] 04-27-2022 09:08-0400 Body height 180.34 cm MD Terri Santos Work Phone: [facility] 04-27-2022 09:08-0400 Body mass index (BMI) [Ratio] 37.6 kg/m2 MD Terri Santos Work Phone: [facility] 04-01-2022 10:10-0400 Blood Pressure Location Leonid WHITEHEAD [facility] [place] 04-01-2022 10:10-0400 Diastolic blood pressure 69 mm[Hg] Leonid WHITEHEAD [facility] 04-01-2022 10:10-0400 Heart rate 79 /min Leonid WHITEHEAD [facility] 04-01-2022 10:10-0400 Respiratory rate 16 /min Leonid WHITEHEAD [facility] [place] 04-01-2022 10:10-0400 Systolic blood pressure 167 mm[Hg] Leonid WHITEHEAD [facility] [place] 02-22-2022 14:45-0400 Body height 172.72 cm Burak Rangel Other [employer] Other 02-22-2022 14:45-0400 Body mass index (BMI) [Ratio] 45.08 kg/m2 Burak Rangel Other [facility] Other 02-22-2022 14:45-0400 Body temperature 97.5 [degF] Burak Rangel Other [employer] Other 02-22-2022 14:45-0400 Body weight 134.49 kg Burak Rangel Other [employer] Other 02-22-2022 14:45-0400 Diastolic blood pressure 75 mm[Hg] Burak Rangel Other [facility] Other 02-22-2022 14:45-0400 SaO2% (BldA) [Mass fraction] 96 % Burak Rangel Other [facility] Other 02-22-2022 14:45-0400 Systolic blood pressure 148 mm[Hg] Burak Rangel Other [facility] Other 12-22-2021 08:15-0400 Blood Pressure Location Luiz MORRISON [facility] 12-22-2021 08:15-0400 Diastolic blood pressure 71 mm[Hg] Luiz MORRISON [facility] 12-22-2021 08:15-0400 Heart rate 74 /min Liuz MORRISON [facility] [place] 12-22-2021 08:15-0400 Systolic blood pressure 139 mm[Hg] Luiz MORRISON [facility] 12-11-2021 08:18-0400 Blood Pressure Location William Trudi [facility] [place] 12-11-2021 08:18-0400 Diastolic blood pressure 77 mm[Hg] William Brush [facility] [place] 12-11-2021 08:18-0400 Heart rate 77 /min William Trudi [facility] [place] 12-11-2021 08:18-0400 Systolic blood pressure 155 mm[Hg] William Brush [facility] [place] 11-04-2021 10:36-0400 Blood Pressure Location Luiz MORRISON [facility] 11-04-2021 10:36-0400 Diastolic blood pressure 78 mm[Hg] Luiz MORRISON [facility] 11-04-2021 10:36-0400 Heart rate 85 /min Luiz MORRISON [facility] 11-04-2021 10:36-0400 Respiratory rate 16 /min Luiz MORRISON [facility] 11-04-2021 10:36-0400 Systolic blood pressure 144 mm[Hg] Luiz MORRISON [facility] 08-31-2021 15:23-0500 Diastolic blood pressure 60 mm[Hg] Terri Powellsop Work Phone: [facility] 600 DO Work Phone: 08-31-2021 15:23-0500 Systolic blood pressure 130 mm[Hg] Terri Powellsop Work Phone: [facility] 600 DO Work Phone: 08-31-2021 15:08-0500 Body height 177.8 cm Terri Powellsop Work Phone: [facility] 600 DO Work Phone: 08-31-2021 15:08-0500 Body mass index (BMI) [Ratio] 40.89 kg/m2 Terri Powellsop Work Phone: [facility] 600 DO Work Phone: 08-31-2021 15:08-0500 Body surface area Derived from formula 2.43 m2 Terri Allsop Work Phone: [facility] 600 DO Work Phone: 08-31-2021 15:08-0500 Body weight 129.28 kg Terri Allsop [facility]: [facility] 600 DO Work Phone: 08-31-2021 15:08-0500 Diastolic blood pressure 79 mm[Hg] Terri Allsop [facility]: [facility] 600 DO Work Phone: 08-31-2021 15:08-0500 Heart rate 75 /min Terri Allsop Work Phone: [facility] 600 DO Work Phone: 08-31-2021 15:08-0500 Systolic blood pressure 144 mm[Hg] Terri Allsop Work Phone: [facility] 600 DO Work Phone: 03-10-2021 15:09-0400 Body height 177.8 cm Terri Allsop Other Phone: [facility] 03-10-2021 15:09-0400 Body temperature 98.42 [degF] Terri Allsop Other Phone: [facility] 03-10-2021 15:09-0400 Diastolic blood pressure 70 mm[Hg] Terri Allsop Other Phone: [facility] 03-10-2021 15:09-0400 Heart rate 82 /min Terri Allsop Other Phone: [facility] 03-10-2021 15:09-0400 SaO2% (BldA) [Mass fraction] 95 % Terri Allsop Other Phone: [facility] 03-10-2021 15:09-0400 Systolic blood pressure 132 mm[Hg] Terri Allsop Other Phone: [facility] Encounters Encounter Date Encounter Type Care Provider Facility Start: 06-20-2024 ambulatory Luiz Gamble ty:[facility] Start: 05-25-2024 End: 05-25-2024 ambulatory Luiz MORRISON Facility:[facility] Start: 05-25-2024 End: 05-25-2024 Patient encounter procedure Luiz R MORRISON [facility] Start: 05-10-2024 End: 05-10-2024 Bamboo flowsyulia Waller MD Work Phone: [facility] Start: 05-10-2024 End: 05-10-2024 Bamboo flowsyulia Waller MD Work Phone: [facility] Start: 05-10-2024 End: 05-10-2024 Office outpatient visit 25 minutes Liliana Waller MD Work Phone: [facility] Comment on above: Acute deep vein thro mbosis (DVT) of distal vein of right lower extremity (CMS/HCC) (Primary Dx); correction current use of anticoagulant; Cardiomyopathy, unspecified type (CMS/HCC); PVD (peripheral vascular disease) (CMS/HCC); Essential hypertension (CMS/HCC); BMI 40.0-44.9, adult (CMS/HCC); Morbid obesity (CMS/HCC) Start: 05-10-2024 End: 05-10-2024 ambulatory LILIANA WALLER Not Available Start: 05-07-2024 End: 05-07-2024 ambulatory [facility] Work Phone: Start: 05-07-2024 End: 05-07-2024 Patient encounter procedure [facility] Phys[facility] Work Phone: Start: 04-13-2024 End: 04-13-2024 ambulatory GUNNAR ADLER Not Available Start: 03-26-2024 End: 03-26-2024 ambulatory ADAM JACK Not Available Start: 03-12-2024 End: 03-12-2024 Patient encounter procedure [facility] Physician [facility] Work Phone: Start: 01-09-2024 End: 01-09-2024 ambulatory ADAM D DOLCE Not Available Start: 12-01-2023 End: 12-01-2023 ambulatory TERRI D ALLSOP Not Available Start: 11-25-2023 End: 11-25-2023 ambulatory Terri D Allsop Facility:[facility] Start: 11-25-2023 End: 11-25-2023 Patient encounter procedure [facility]ri D [facility] [facility] Start: 11-17-2023 End: 11-17-2023 ambulatory TERRI D ALLSOP Not Available Start: 10-31-2023 End: 10-31-2023 ambulatory ADAM D DOLCE Not Available Start: 10-21-2023 End: 10-21-2023 ambulatory Terri D Allsop Facility:[facility] Start: 10-21-2023 End: 10-21-2023 Patient encounter procedure Terri D Allsop [facility] Start: 09-30-2023 End: 09-30-2023 Office outpatient visit 25 minutes Delores Ac MD Work Phone: [facility] Comment on above: Essential hypertensi on; Non-ischemic cardiomyopathy (CMS/HCC); Hyperlipidemia, unspecified hyperlipidemia type; Obstructive sleep apnea, adult; Morbid obesity with BMI of 40.0-44.9, adult (CMS/HCC) Start: 09-30-2023 End: 09-30-2023 ambulatory DELORES Noguera [facility] Start: 08-25-2023 End: 08-25-2023 ambulatory TERRI D ALLSOP Not Available Start: 08-22-2023 End: 08-22-2023 ambulatory ADAM D DOLCE Not Available Start: 06-15-2023 End: 06-15-2023 ambulatory Luiz MORRISON Facility:[facility] Start: 06-15-2023 End: 06-15-2023 Patient encounter procedure Luiz MORRISON [facility] Start: 05-27-2023 End: 05-27-2023 ambulatory TERRI SANTOS Facility:[facility] Start: 04-30-2023 End: 04-30-2023 Patient encounter procedure Luiz MORRISON [facility] Start: 02-21-2023 Office outpatient vi sit 15 minutes [facility] Start: 02-21-2023 End: 02-21-2023 ambulatory [facility] Work Phone: Start: 02-21-2023 End: 02-21-2023 Patient encounter procedure MD Terri Santos Work Phone: [facility] Work Phone: Start: 11-04-2022 Rx Renewal Terri de la torre Work Phone: [facility] 250 DO Work Phone: Start: 11-03-2022 End: 11-03-2022 Patient encounter procedure Luiz MORRISON [facility] Start: 09-29-2022 Chart Update Terri [facility] torre [facility] Work Phone: Start: 09-29-2022 End: 09-29-2022 Patient encounter procedure Delores Ac [facility] Start: 09-28-[address] Delores Ac Facility: Start: 09-28-2022 Office outpatient vi sit 10 minutes [facility]ri [facility] Work Phone: Start: 09-10-2022 Office outpatient vi sit 25 minutes Terri Andrelay Work Phone: [facility] 600 DO Work Phone: Start: 09-10-2022 Patient encounter procedure Terri Santos Work Phone: [facility] 600 DO Work Phone: Start: 09-10-[address] Terri Santos Facility: Start: 07-02-2022 Rx Renewal Terri Powellso p Work Phone: [facility] 250 DO Work Phone: Start: 06-24-2022 End: 06-24-2022 Patient encounter procedure Wliliam Brush [facility] Start: 05-21-2022 End: 05-21-2022 Patient encounter procedure Catrachito Barton OD Work Phone: Ophthalmology Comment on above: Epiretinal membrane (ERM) of both eyes (Primary Dx); Floppy eyelid syndrome of both eyes; Combined forms of age-related cataract of both eyes; Posterior vitreous detachment of both eyes; Vitreous floaters of both eyes Start: 05-12-2022 End: 05-12-2022 Patient encounter procedure Luiz MORRISON [facility] Start: 05-10-2022 Rx Renewal Terri Powellso p Work Phone: [facility] 250 DO Work Phone: Start: 04-30-2022 End: 04-30-2022 Patient encounter procedure Luiz MORRISON [facility] [place] Start: 04-27-2022 End: 04-28-2022 ambulatory Luiz Morrison Facility:[facility] Start: 04-27-2022 End: 04-28-2022 Admission to same day surgery center MD Terri Santos Work Phone: [facility] [place] Start: 04-23-2022 End: 04-23-2022 ambulatory Luiz Morrison Facility:[facility] Start: 04-23-2022 End: 04-23-2022 Patient encounter procedure MD Terri Santos Work Phone: [facility] Start: 04-13-2022 End: 04-13-2022 ambulatory Luiz Morrison Facility:[facility] Start: 04-13-2022 End: 04-13-2022 Patient encounter procedure MD Terri Santos Work Phone: [facility] Start: 04-01-2022 End: 04-01-2022 Lab Drop off Adam Jack [facility] Start: 04-01-2022 End: 04-01-2022 Patient encounter procedure Leonid WHITEHEAD [facility] [place] Start: 03-26-2022 End: 04-07-2022 Pre-admission assessment Milo Gonzales [facility] Start: 03-17-2022 End: 03-17-2022 Patient encounter procedure Luiz MORRISON [facility] [place] Start: 03-02-2022 End: 03-02-2022 Patient encounter procedure Luiz MORRISON [facility] Start: 02-22-2022 End: 02-22-2022 ambulatory Burak Rangel Other [facility] [employer] Other Start: 02-22-2022 Office outpatient vi sit 15 minutes Burak Rangel [facility] Start: 02-22-2022 End: 02-22-2022 Patient encounter procedure MD Terri Santos Work Phone: [facility] Start: 01-21-2022 End: 01-21-2022 Patient encounter procedure MD Terri Santos Work Phone: [facility] [place] Start: 12-22-2021 End: 12-22-2021 Lab Drop off Luiz MORRISON [facility] Start: 12-22-2021 End: 12-22-2021 Patient encounter procedure Luiz MORRISON [facility] Start: 12-11-2021 End: 02-20-2022 Pre-admission assessment William Brush [facility] Start: 12-11-2021 End: 12-11-2021 Patient encounter procedure William Brush [facility] [place] Start: 12-10-2021 End: 12-10-2021 Patient encounter procedure Belinda GIL [facility] Start: 12-08-2021 End: 12-08-2021 Patient encounter procedure Luiz MORRISON [facility] Start: 12-01-2021 End: 12-01-2021 Patient encounter procedure Luiz MORRISON [facility] Start: 11-19-2021 End: 11-19-2021 Patient encounter procedure Luiz MORRISON [facility] Start: 11-04-2021 End: 11-04-2021 Patient encounter procedure Luiz MORRISON [facility] Start: 08-31-2021 Office outpatient vi sit 25 minutes Terri Santos [facility] Phone: [facility] 600 DO Work Phone: Start: 06-10-2021 Rx Renewal Terri Powellso p [facility] Phone: [facility] DO Work Phone: Start: 03-10-2021 End: 03-10-2021 Emergency department patient visit Chriss Marie [facility] Start: 04-11-2018 End: 04-11-2018 Emergency department patient visit [facility] Facility:[facility] Procedures Date Procedure Procedure Detail Performing [...] Start: 01-21-2022 MRI-US fusion guided prostate biopsy uLiz MORRISON Start: 12-08-2021 Urodynamic studies Patr shantel MORRISON Start: 10-08-2011 Colonoscopy Catrachito mccullough OD Work Phone: Start: 10-08-2011 Colonoscopy Luiz PATRICK Start: 08-10-2011 Colonoscopy Luiz PATRICK Hemorrhoid operation Luiz MORRISON Hemorrhoidectomy Terri Ferreira lsop Work Phone: Tonsillectomy Luiz MORRISON Total colonoscopy Terri Toney llsop Work Phone: Plan of Treatment Date Care Activity Detail Author Start: 09-03-2033 DTaP/Tdap/Td Vaccine s (2 - Td or Tdap) DTaP/Tdap/Td Vaccines (2 - Td or Tdap) [facility] Start: 06-24-2032 Screening for malign ant neoplasm of colon [facility] Start: 11-08-2024 End: 11-08-2024 Patient encounter procedure 11/08/2024 9:00 AM EDT Office Visit [facility] [address] [place] [phone] Liliana Waller MD [address] [place] [address] [facility] Start: 09-25-2024 End: 09-25-2024 Patient encounter procedure 09/25/2024 9:00 AM EST Office Visit [facility] [address] [place] [address] [place] [phone] Delores Ac MD [address] [facility] [place] [address] [place] [address] [facility] Start: 06-04-2024 End: 06-04-2024 Patient encounter procedure 06/04/2024 8:00 AM EDT Procedure Visit [facility] [address] [place] [phone] Adam Jack, DPM FACFAS [address] [place] [address] [facility] Start: 05-10-2024 End: 05-10-2024 Patient encounter procedure 05/10/2024 9:20 AM EDT Office Visit [facility] [address] [place] [phone] Liliana Waller MD [address] [place] [address] Arrived [facility] Comment on above: Arrived Start: 04-08-2024 Influenza vaccination Influenza Vacc ine (#1) [facility] Start: 10-29-2023 Zoster Vaccines (2 of 2) Zoste r Vaccines (2 of 2) [facility] Start: 09-30-2023 FUV, Provider: Delores Ac, Status: Pen, Time: 9:00 AM FUV, Provider: Delores Ac, Status: Pen, Time: 9:00 AM [facility] Work Phone: Start: 04-08-2023 COVID-19 Vaccine ( season) COVID-19 Vaccine ( season) [facility] Start: 09-28-2022 NURSEVST, Provider: ISHA TRINIDAD SENIOR AUDITOR 1,[id number], Status: Pen, Time: 11:30 AM NURSEVST, Provider: ISHA TRINIDAD SENIOR AUDITOR 1,[id number], Status: Pen, Time: 11:30 AM [facility] DO Work Phone: Start: 08-31-2022 FUV, Provider: Delores Ac, Status: Pen, Time: 8:40 AM FUV, Provider: Delores Ac, Status: Pen, Time: 8:40 AM [facility] DO Work Phone: Start: 08-03-2022 Pneumococcal Vaccine : 65+ Years (2 - PCV) Pneumococcal Vaccine: 65+ Years (2 - PCV) [facility] Start: 04-28-2022 [facility] Work Phone: Start: 04-27-2022 Hospital admission [facility] Work Phone: Start: 04-08-2022 Influenza vaccination INFLUENZA (#1) [facility] Start: 01-21-2022 MR prostate wo/w con MR prostate wo/ w con [facility] Start: 10-05-2021 COVID-19 VACCINE (4 - Booster for Moderna series) COVID-19 VACCINE (4 - Booster for Moderna series) [facility] Start: 08-08-2021 ADVANCE DIRECTIVE DISCUSSION ADVANCE DIRECTIVE DISCUSSION [facility] Start: 08-08-2021 DEPRESSION ASSESSMENT DEPRESSION ASS ESSMENT [facility] Start: 07-10-2021 STACIA, Provider : Delores Ac, Status: Pen, Time: 10:10 AM STACIA, Provider: Delores Ac, Status: Pen, Time: 10:10 AM [facility] 600 DO Work Phone: Start: 01-01-2021 PNEUMOCOCCAL: 65+ (1 - PCV) PNEUMOCOCCAL: 65+ (1 - PCV) [facility] Start: 10-07-2012 Colonoscopy COLONOSCOPY [facility] Start: 10-07-2012 COLORECTAL CANCER SCREENING COLORECTAL CANCER SCREENING [facility] Start: 01-01-2011 PROSTATE CANCER SCREENING DISCUSSION PROSTATE CANCER SCREENING DISCUSSION [facility] Start: 01-01-2006 SHINGRIX VACCINE (1 of 2) SHINGRIX VACCINE (1 of 2) [facility] Start: 01-01-2001 COLOGUARD (FIT-DNA) COLOGUARD (FIT-D NA) [facility] Start: 01-01-[address] COLONOGRAPHY [facility] Start: 01-01-2001 DIABETES SCREEN DIABETES SCREEN [facility] Start: 01-01-2001 FECAL OCCULT BLOOD FECAL OCCULT BLOO D [facility] Start: 01-01-2001 SIGMOIDOSCOPY SIGMOIDOSCOPY [facility]iel [facility] Start: 01-01-1991 LIPID SCREEN LIPID SCREEN [facility] Start: 01-01-1975 Urine microalbumin profile DTAP,TDAP,TD (1 - Tdap) [facility] Start: 01-01-1974 Diabetes mellitus screening Diabetes Screening [facility] Start: 01-01-1974 HEPATITIS C SCREENING HEPATITIS C [facility] Start: 01-01-1974 Hepatitis C screening Hepatitis C [facility] Start: 1956 Lipid panel Lipid Panel [facility] Start: 1955 Screening for malign ant neoplasm of colon [facility] Start: 1955 [facility] Work Phone: [facility] Immunizations Immunization Date Immunization Notes Care Provider Fa pari 04-14-2024 influenza virus vacc ine, unspecified formulation Liliana Waller MD Work Phone: [facility] 05-19-2023 influenza virus vacc ine, unspecified formulation Luiz MORRISON [facility] 05-19-2023 Influenza, High-dose Seasonal, Quadrivalent, Preservative Free Liliana Waller MD Work Phone: [facility] 05-27-2022 Fluzone High-Dose Quadrivalent 0.7 ML Intramuscular Suspension Prefilled Syringe Terri Santos Work Phone: [facility] 600 DO Work Phone: 05-27-2022 influenza virus vacc ine, unspecified formulation Luiz MORRISON [facility] 08-10-2021 Moderna COVID-19 Vac cine 100 MCG/0.5ML Intramuscular Suspension Terri Santos Work Phone: [facility] 08-08-2021 SARS-CoV-2 (COVID-19 ) [id number] vaccine Luiz MORRISON [facility] Comment on above: Result Comment: [facility] 08-03-2021 Fluzone High-Dose Quadrivalent 0.7 ML Intramuscular Suspension Prefilled Syringe Terri Allsop Work Phone: [facility] 600 DO Work Phone: 08-03-2021 influenza virus vacc ine, unspecified formulation Lot78 [facility] 08-03-2021 pneumococcal polysaccharide vaccine, 23 valent Terri Allsop Work Phone: [facility] 600 DO Work Phone: 2021 Moderna COVID-19 Vac cine 100 MCG/0.5ML Intramuscular Suspension Terri Allsop Work Phone: [facility] 600 DO Work Phone: 12-05-2020 Moderna COVID-19 Vac cine 100 MCG/0.5ML Intramuscular Suspension Terri Allsop Work Phone: [facility] 600 DO Work Phone: 06-26-2020 influenza virus vacc ine, unspecified formulation Lot78 [facility] 06-26-2020 influenza, injectabl e, quadrivalent, preservative free Terri Allsop Work Phone: [facility] 600 DO Work Phone: 06-16-2019 influenza virus vacc ine, unspecified formulation Lot78 [facility] 06-16-2019 seasonal influenza, intradermal, preservative free [facility]op [facility] 600 DO Work Phone: 06-08-2019 influenza virus vacc ine, unspecified formulation Lot78 [facility] 06-08-2019 influenza, seasonal, injectable Terri Allsop Work Phone: [facility] 600 DO Work Phone: 06-07-2019 influenza virus vacc ine, unspecified formulation Luiz MORRISON [facility] 05-08-2018 influenza virus vacc ine, unspecified formulation Terri Allsop Work Phone: [facility] 600 DO Work Phone: 06-08-2016 influenza virus vacc ine, unspecified formulation Terri Allsop Work Phone: [facility] 600 DO Work Phone: 06-08-2016 pneumococcal polysaccharide vaccine, 23 valent Terri Allsop Work Phone: [facility] 600 DO Work Phone: 05-16-2015 influenza virus vacc ine, unspecified formulation Terri Allsop Work Phone: [facility] 600 DO Work Phone: 06-22-2013 influenza virus vacc ine, unspecified formulation Terri Allsop Work Phone: [facility] 600 DO Work Phone: 06-21-2013 pneumococcal polysaccharide vaccine, 23 valent Terri Allsop Work Phone: [facility] 600 DO Work Phone: 05-01-2012 influenza virus vacc ine, whole virus Terri Allsop Work Phone: [facility] DO Work Phone: 05-01-2012 influenza, whole Luiz ANDREW ERS [facility] influenza virus vacc ine, unspecified formulation Terri Santos Work Phone: -[facility] 600 DO Work Phone: Comment on above: 2011 2006 Payers Date Payer Category Payer Self-pay [id number] 2018 Unknown 2014 Unknown [id number] 1956 Unknown [id number] 2.16. [id number] 1956 Unknown [id number] 2.16. 840.1.320775.3.579.2.356 1956 Unknown [id number] 2.16.8 40.1.449703.3.579.2.1244 1956 Unknown [id number] 2.16.84 0.1.974158.3.579.2.1258 1956 Unknown [id number] 2.16.84 0.1.391695.3.579.2.1259 1956 Unknown [id number] 2.16.84 0.1.952025.3.579.2.1259 1956 Unknown [id number] 2.16.84 0.1.794186.3.579.2.1259 1956 Unknown [id number] 2.16.84 0.1.827209.3.579.2.1258 1956 Unknown [id number] 2.16.84 0.1.334235.3.579.2.1259 1956 Unknown [id number] 2.16.84 0.1.022127.3.579.2.1258 1956 Unknown [id number] 2.16.84 0.1.334786.3.579.2.1259 1956 Unknown [id number] 2.16.84 0.1.935933.3.579.2.1259 1956 Unknown [id number] 2.16.8 40.1.789475.3.579.2.727 1956 Unknown [id number] 2.16.8 40.1.181487.3.579.2.727 1956 Unknown [id number] 2.16.8 40.1.862632.3.579.2.727 1956 Unknown [id number] 2.16.8 40.1.202718.3.579.2.727 1956 Unknown [id number] 2.16.8 40.1.393590.3.579.2.727 Unknown [id number] 2.16.8 40.1.367119.3.579.2.531 Unknown [id number] 2.16.8 40.1.143371.3.579.2.531 Unknown [id number] 2.16.8 40.1.168355.3.579.2.531 Unknown [id number] 2.16.8 40.1.888249.3.579.2.531 Social History Date Type Detail Facility [facility] Tobacco smoking consumption unknown [facility] Start: 09-30-2023 End: 05-10-2024 Caffeine use Caffeine use -[facility] 600 DO Work Phone: Start: 11-04-2021 End: 06-15-2023 Tobacco smoking status Never smoked tobacco (finding) [facility] [employer] Tobacco smoking status Ex-smoker (finding ) [facility] [employer] Tobacco smoking status Never [facility] [place] Start: 09-30-2023 End: 05-10-2024 Sex Assigned At Male [facility] Start: 1955 Sex Assigned At Male F [facility] Start: 04-12-2018 End: 01-04-2023 Tobacco use and exposure Smokeless tobacco non-user [facility] Start: 05-21-2022 End: 05-10-2024 Alcohol intake Lifetime non-drinker (finding) [facility] Start: 08-27-2019 History SDOH Alcohol Frequency 1 [facility] Start: 1955 Sex Assigned At Not on file [facility] Start: 05-11-2022 End: 09-30-2023 Exposure to SARS-CoV-2 (event) Not sure [facility] Start: 01-03-2023 Alcohol Comment caffeine: 2-3 cups per day [facility] Goals Date Patient Goal Desired Activity /State Functional Status Date Assessment Result Facility 06-15-2023 Functional Status N/A [facility] 11-03-2022 Functional Status N/A [facility] 06-24-2022 Functional Status N/A [facility] 05-12-2022 Functional Status N/A [facility] 04-28-2022 Functional status Patient at Baseline [facility] Work Phone: 04-01-2022 Functional Status N/A [facility] [place] 03-17-2022 Functional Status N/A [facility] Mental Status Date Assessment Result Facility 04-28-2022 Cognitive function Cognitive Sta tus Patient at Baseline [facility] Work Phone: Clinical Notes 08-15-2020 to 05-10-2024 [...] in regimen. Continue to follow w/ vascular correction current use of anticoagulant Cardiomyopathy, unspecified type (CMS/HCC) Stable, continue to monitor. No change in regimen. PVD (peripheral vascular disease) (CMS/HCC) Stable, continue to monitor. No change in regimen. Continue to follow w/ vascular Essential hypertension (CMS/HCC) Stable, continue to monitor. No change in regimen. BMI 40.0-44.9, adult (CMS/HCC) Morbid obesity (CMS/HCC) - continue to monitor weight documented in this encounter [facility] 09-30-2023 History of Present illness Narrative Subjective [...] has been very compliant Delores Ac MD, [facility] Review of Systems All other systems reviewed [...] Scribe Attestation By signing my name below, beti Smith Scribe attest that this documentation has been [...] discussion and plan. documented in this encounter [facility] Work Phone: 09-30-2023 Instructions Kitty Estes LPN [...] Increase physical activity. documented in this encounter [facility] Work Phone: 06-15-2023 Hospital Discharge instructions Patient [...] urethra. Follow these instructions at home: Take xodn-qnm-llmnfyz and prescription medicines only as told by [...] provider. Document Revised: 02/10/2022 Document Reviewed: 02/10/2022 [employer] Patient Education 2022 GENIAC. Follow Up Care 11/03/2022 16:39:32 With:TAMIKO SAEZ, Luiz Jackson, URL Address: [facility] [address], [place] [address]- When: Unknown [facility] 05-27-2023 Note HNO ID: [id number] Author: Josselin Decker MD Service: ? Author [...] about the findings, diagnosis, and treatment options. 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 Follow these instructions at home: Take lfnh-vig-bddpxil and prescription medicines only as told by [...] 07/25/2006 Document Revised: 06/19/2019 Document Reviewed: 08/29/2017 [employer] Patient Education 2020 GENIAC. Follow Up Care 07/29/2022 09:30:30 With:TAMIKO SAEZ, Luiz Jackson, URL Address: [facility] [address] [place] [address]- When: Unknown [facility] [place] 11-17-2022 Hospital Discharge instructions Patient Education 06/24/2022 [...] a slower pace than normal. ?Eat soft, cgit-hu-swqyqq foods. Take fjgy-gmj-ejunlpd or prescription medicines only as told by [...] 03/08/2005 Document Revised: 05/17/2018 Document Reviewed: 10/05/2016 [employer] Patient Education 2020 GENIAC. Follow Up Care 02/15/2022 10:08:03 With:William Brush Address:Unknown When: Unknown Comments:will call with results [facility]10-14-2022 Instructions* Patient Instructions* Catrachito Barton, OD [...] delay. Recommended yearly exams. [facility] History of Present illness Narrative* Catrachito [...] and examined this patient. [facility] Hospital Discharge instructions Patient Education 05/12/2022 [...] Follow these instructions at home: Medicines Take laqs-qki-jgztcwu and prescription medicines only as told by [...] prevent or treat constipation, such as: ?Take vwoc-fkk-ztwzukz or prescription medicines. ?Eat foods that are [...] 07/25/2006 Document Revised: 11/14/2019 Document Reviewed: 04/25/2019 [employer] Patient Education 2020 GENIAC. Follow Up Care 04/30/2022 08:49:28 With:TAMIKO SAEZ, Luiz Jackson, URL Address: [facility] [address] [place] [address]- [phone] When:08/12/2022 [facility] 08-10-2022 Hospital Discharge instructions Patient Education [...] including vitamins, herbs, eye drops, creams, and wcry-ggv-rjnsoki medicines. Any problems you or family members [...] provider tells you to take them. Taking xxfj-byg-gwmoozw medicines, vitamins, herbs, and supplements. Eating and [...] 07/25/2006 Document Revised: 11/14/2019 Document Reviewed: 04/25/2019 [employer] Patient Education 2019 GENIAC. Follow Up Care 02/12/2022 10:45:59 With:TAMIKO SAEZ, Luiz Jackson, URL Address: [facility] [address], [place] [address]- [phone] When: Unknown Comments:schedule TURP [facility] 07-26-2022 Hospital Discharge instructions Patient [...] for your post-operative appointment in 1-2 weeks [phone] or [phone] Follow Up Care 02/12/2022 10:36:38 With:Luiz MORRISON Address: [facility] [address] [place] [address]- Business (1) When: Unknown Comments:Appointment has already been scheduled [facility]07-18-2022 Evaluation note* Encounter Date Diagnosis Assessment [...] G47.61) Feb, Morbid obesity (ICD-10 - E66.01) [facility] Other 05-16-2022 Hospital Discharge instructions Patient Education [...] Follow these instructions at home: Medicines Take ffhk-pyv-dhpqoar and prescription medicines only as told by [...] or the blood stops without treatment. Take lurd-fsa-fhcihkl and prescription medicines only as told by your health care provider. Drink enough fluid to keep your urine clear or pale yellow. This information is not intended to replace advice given to you by your health care provider. Make sure you discuss any questions you have with your health care provider. Document Released: 07/25/2006 Document Revised: 12/19/2019 Document Reviewed: 08/27/2017 [employer] Patient Education 2019 [employer]IAC. Follow Up Care 12/01/2021 08:55:58 With:TAMIKO SAEZ, Luiz Jackson, URL Address: [facility] [address], [place] [address]- When: Unknown Comments:Schedule TURP. [facility] [place] 05-06-2022 Hospital Discharge instructions Patient Education 12/11/2021 [...] ?Hypothyroidism. ?Polycystic ovarian syndrome (PCOS). ?Binge-eating disorder. ?[place] syndrome. Taking certain medicines, such as steroids, [...] food choices, such as grocery stores and [employer] markets. What are the signs or symptoms? [...] and how much exercise you get. Take tyub-oip-eqbcwgk and prescription medicines only as told by [...] 09/01/2005 Document Revised: 03/29/2019 Document Reviewed: 03/29/2019 [employer] Patient Education 2020 [employer]. [facility] [place] 04-26-2022 Evaluation + Plan noteExtracted from: Title:Urology Progress Note Author:Rakesh MORRISON MD Date:12/01/21 Patient: PHU LOPEZ Age: 66 years Sex: Male : 1955 Associated Diagnoses: None Author: TAMIKO SAEZ, Luiz Jackson Subjective X this gentleman has BPH with [...] list: All Problems asthma / SNOMED CT 670886379 / Confirmed Hypocalcemia / SNOMED CT 4904081 / Confirmed Hypokalemia / SNOMED CT 13028058 / Confirmed Obesity / SNOMED CT 8484350334 / Confirmed Chronic heart failure / SNOMED CT 41904152 / Confirmed Hyperlipidemia / SNOMED CT 43024409 / Confirmed Hyperglycemia / SNOMED CT 157428929 / Confirmed Hypertension / SNOMED CT 80639878 / Confirmed Male hypogonadism / SNOMED CT 84163811 / Confirmed Onychomycosis / SNOMED CT 5168868676 / Confirmed Hypothyroid / SNOMED CT 75087295 / Confirmed Depression / SNOMED CT 58977225 / Confirmed Heart disease / SNOMED CT 76172607 / Confirmed Histories Past Medical History: Active asthma (276857438): Onset in 1970 at 15 years. Resolved Depression (300.4): Onset on 12/10/2009 at 54 years. Resolved. Comments: 12/10/2009 EDT 10:06 EDT - Family History: Cardiac arrhythmia Father () Malignant lymphoma Mother () Comments: 12/07/2009 0:16 EDT - Merlyn Sampson RN parathyroid cancer Procedure history: Colonoscopy (766083824) on 10/08/2011 at 56 Years. Colonoscopy (243275832) on 08/10/2011 at 56 Years. Tonsillectomy (741782332). Social History Social & Psychosocial Habits Alcohol 11/22/2019Risk Assessment: Denies Alcohol Use Substance Abuse 11/22/2019Ris Assessment: Denies Substance Abuse Tobacco 11/22/2019Ris Assessment: Denies Tobacco Use 11/04/2021 Tobacco Use: [...] Appointments Appointment Date:12/03/2021 08:15:00 AM Scheduled Provider: Location:[facility] Appointment Type:Urology CALL [facility] Appointment Date:12/08/2021 08:00:00 AM Scheduled Provider: Location:[facility] Appointment Type:Urology FT Appointment Date:12/11/2021 08:20:00 AM Scheduled Provider:William Brush MD Location:[facility] Appointment Type:[facility] Appointment Date:12/22/2021 08:00:00 AM Scheduled Provider:Luiz MORRISON MD Location:[facility] Appointment Type:URO Office Visit Diagnostic Tests Pending * UroVysion Fish and Urine Cyto ([facility]) 12/01/21 [facility]04-26-2022 Hospital Discharge instructions Patient Education 12/01/2021 [...] [facility] [address], [place] [address]- Business (1) When: Unknown Comments:Office will call to schedule follow up [facility]03-30-2022 Evaluation + Plan note Future Scheduled Tests Radiology* CT Urogram 11/04/21 [facility] [id number] Hospital Discharge instructions Patient Education 11/04/2021 11:30:36 [...] Follow these instructions at home: Medicines Take gytv-gri-ztdyvln and prescription medicines only as told by [...] or the blood stops without treatment. Take ncef-hfj-piftzpb and prescription medicines only as told by your health care provider. Drink enough fluid to keep your urine clear or pale yellow. This information is not intended to replace advice given to you by your health care provider. Make sure you discuss any questions you have with your health care provider. Document Released: 07/25/2006 Document Revised: 12/19/2019 Document Reviewed: 08/27/2017 [employer] Patient Education 2020 [employer] Follow Up Care 10/06/2021 15:23:45 With:Luiz MORRISON MD, URL Address: [facility] [address], [place] [address]- [phone] When: Unknown [facility] 01-08-2021 History of Past illness Narrative* Problem Noted Date Resolved Date Epiretinal membrane (ERM) of right eye 1 09/04/2021 documented as of this encounter (statuses as of 05/21/2022) [facility]ments Appointment Date:12/01/2021 08:00:00 AM Scheduled Provider: Location:[facility] Appointment Type:Urology Appointment Date:12/11/2021 08:20:00 AM Scheduled Provider:William Brush MD Location:[facility] [address] note Future Appointments Appointment Date:12/11/2021 08:20:00 AM Scheduled Provider:William Brush MD Location:[facility] Appointment Type:[place] [address] Appointment Date:12/22/2021 08:00:00 AM Scheduled Provider:Luiz MORRISON MD [facility] App[facility]ments Appointment Date:12/11/2021 08:20:00 AM Scheduled Provider:William Brush MD Location:[facility] Appointment Type:[place] [address] Appointment Date:12/22/2021 08:00:00 AM Scheduled Provider:Luiz MORRISON MD Location:[facility] Appointment Type:URO Office Visit Diagnostic Tests Pending * [facility] Future Appointments Appointment Date:12/22/2021 08:00:00 AM Scheduled Provider:Luiz MORRISON MD [facility] Appointment Type:URO Office Visit Appointment Date:02/19/2022 12:30:00 PM Scheduled Provider: Location:[facility] Appointment Type:Surgery FT [facility] [place] Evaluation + Plan note Future Appointments Appointment Date:02/19/2022 12:30:00 PM Scheduled Provider: Location:[facility] Appointment Type:Surgery FT Diagnostic Tests Pending * PSA Total 12/22/21 [facility] Evaluation + Plan note Future Appointments Appointment Date:02/19/2022 12:30:00 PM Scheduled Provider: Location:[facility] Future Appointments Appointment Date:03/02/2022 09:45:00 AM Scheduled Provider: Location:[facility] Appointment Type:Urology FT Appointment Date:03/17/2022 02:00:00 PM Scheduled Provider:Luiz MORRISON MD Location:[facility] Appointment Type:URO Office Visit Appointment Date:06/25/2022 12:30:00 PM Scheduled Provider: Location:[facility] Future Appointments Appointment Date:03/17/2022 02:00:00 PM Scheduled Provider:Luiz MORRISON MD Location:[facility] Appointment Type:URO Office Visit Appointment Date:06/25/2022 12:30:00 PM Scheduled Provider: Location:[facility] Appointment Type:Surgery FT Diagnostic Tests Pending * Prostate Histology ([facility]) [facility]02/22 [facility] App[facility]ments Appointment Date:06/25/2022 12:30:00 PM Scheduled Provider: Location:[facility] Appointment Type:Surgery FT [facility] Evaluation + Plan note Future Appointments Appointment Date:04/06/2022 02:30:00 PM Scheduled Provider:Milo Gonzales MD Location[facility] Appointment Type:Pain Management - New (FT) Appointment Date:06/25/2022 12:30:00 PM Scheduled Provider: Location:[facility] Appointment Type:Surgery FT [facility] [place] Evaluation + Plan note Future Appointments Appointment Date:05/12/2022 08:00:00 AM Scheduled Provider:Luiz MORRISON MD Location[facility] Appointment Type:URO Office Visit Appointment Date:06/25/2022 12:30:00 PM Scheduled Provider: Location:[facility] Appointment Type:Surgery FT [facility] Evaluation + Plan note Future Appointments Appointment Date:06/24/2022 12:30:00 PM Scheduled Provider: Location:[facility] Appointment Type:Surgery FT Appointment Date:08/11/2022 10:30:00 AM Scheduled Provider:Luiz MORRISON MD Location:[facility] Appointment Type:URO Office Visit [facility] Evaluation + Plan note Future Appointments Appointment Date:08/11/2022 10:30:00 AM Scheduled Provider:Luiz MORRISON MD Location:[facility]ment [facility] Future Appointments Appointment Date:11/03/2022 03:00:00 PM Scheduled Provider:Luiz MORRISON MD Location:[facility] Future Appointments Appointment Date:06/15/2023 01:15:00 PM Scheduled Provider:Luiz MORRISON MD [facility] Appointment Type:URO Office Visit Diagnostic Tests Pending * PSA Total 11/03/22 [facility] Evaluation + Plan note Future Appointments Appointment Date:06/15/2023 01:15:00 PM Scheduled Provider:Luiz MORRISON MD Location[facility] Appointment Type:URO Office Visit Diagnostic Tests Pending * PSA Total 04/30/23 [facility] Future Appointments Appointment Date:06/20/2024 01:00:00 PM Scheduled Provider:Luiz MORRISON MD Location:[facility] Appointment Type:URO Office Visit Diagnostic Tests Pending * PSA Total 06/15/23 [facility] Evaluation + Plan note Future Appointments Appointment Date:06/20/2024 01:00:00 PM Scheduled Provider:Luiz MORRISON MD Location:[facility] Appointment Type:URO [facility] note[facility] assessment information available [facility] Work Phone: Evaluation note* Diagnosis Epiretinal membrane (ERM) of both eyes- Primary Floppy eyelid syndrome of both eyes Combined forms of age-related cataract of both eyes Other and combined forms of senile cataract Posterior vitreous detachment of both eyes Vitreous degeneration Vitreous floaters of both eyes [facility] Diagnosis Essential hypertension Unspecified essential hypertension Non-ischemic cardiomyopathy (CMS/HCC) Other primary cardiomyopathies Hyperlipidemia, unspecified hyperlipidemia type Obstructive sleep apnea, adult Morbid obesity with BMI of 40.0-44.9, adult (CMS/HCC) documented in this encounter [facility] Work Phone: Evaluation note* Diagnosis Onset Date Resolution Status Hypertension acute Sleep apnea with use of cont inuous positive airway pressure (CPAP) acute Hypertension acute Sleep apnea with use of cont inuous positive airway pressure (CPAP) acute [facility] Work Phone: Evaluation note* Diagnosis Acute deep vein thrombosis (DVT) of distal vein of right lower extremity (CMS/HCC)- Primary correction current use of anticoagulant Cardiomyopathy, unspecified type (CMS/HCC) PVD (peripheral vascular disease) (CMS/HCC) Unspecified peripheral vascular disease Essential hypertension (CMS/HCC) Unspecified essential hypertension BMI 40.0-44.9, adult (CMS/HCC) Morbid obesity (CMS/HCC) Morbid obesity documented in this encounter [facility] HealthcareHistory general Narrative - Reported* Type Description Date Medical History CARDIOMYOPATHY Medical History HYPERTENSION Medical History HYPOKALEMIA Medical History HYPERLIPIDEMIA Medical History FATTY LIVER Medical History ASTHMA Medical History SLEEP APNEA Medical History DEPRESSION Medical History RESTLESS LEG SYNDROME Surgical History HEMMRHOIDECTOMY 1990 Surgical History ANGIOGRAM [facility] Other Hospital course Narrative No data available for this section [facility] Discharge instructions No data available for this section [facility] No data available for this section [facility] (narrative)* Consultation (Routine) - Authorized Specialty Diagnoses / Procedures Referred By Contac t Referred To Contact Cardiology Diagnoses Essential hypertension Non-ischemic cardiomyopathy (CMS/HCC) Procedures Follow Up In Cardiology Delores Ac MD [address] [place] [address] 2, [place] [address] [place] [address] Delores Ac MD [address] [place] [address] 2, [facility] [address] [place] [address] Referral ID Status Reason Start Date Expiration Date V isits Requested Visits Authorized [id number] Authorized 09/30/2023 09/29/2024 1 1 [facility] Work Phone: Summary Purpose Family History No [...] Unknown mother Malignant neoplasm Unknown Advance Directives No Advanced Directives Records Found [...] on CPAP machine * Delores Ac MD, [facility] PHU LOPEZ is being seen for an annual follow-up of.* PHU LOPEZ is being seen for an annual follow-up of. * Patient is in the office for follow-up for the problems noted below. 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 He reports no symptoms of dyspnea or [...] section and content) DATE CREATED AUTHOR 05/19/2018 [facility] DATE CREATED AUTHOR AUTHOR'S ORGANIZ ATION 03/14/2021 [facility] DATE CREATED AUTHOR AUTHOR'S ORGANIZ ATION 09/29/2022 [facility] DATE CREATED AUTHOR AUTHOR'S ORGANIZ ATION 09/29/2022 [facility] DATE CREATED AUTHOR AUTHOR'S ORGANIZ ATION 02/24/2023 [facility] DATE CREATED AUTHOR AUTHOR'S ORGANIZ ATION 05/29/2023 [facility] DATE CREATED AUTHOR AUTHOR'S ORGANIZ ATION 04/17/2024 [facility] DATE CREATED AUTHOR AUTHOR'S ORGANIZ ATION 05/12/2024 [facility] EPIC DATE CREATED AUTHOR AUTHOR'S ORGANIZ ATION 05/27/2024 [facility] DATE CREATED AUTHOR AUTHOR'S ORGANIZ ATION 05/28/2024 [facility] <item> Privacy Markings (unrecogniz ed section and [...] Active Burak Rangel MD Attending Provider Active Tube Winder Hand Relationship Specialty Start Date End Date Terri Santos DO [address] [place] [address] PCP - General Family Medicine 04/11/18 [employer] Relationship Specialty Start Date End Date Terri Santos DO [address] [id number] PCP - General 09/11/20 Team Status: Inactive [...] May 07, 2024 End: May 07, 2024 [employer]inder [employer] Relationship Specialty Start Date End Date Terri Santos DO PCP - Medical [employer] 08/08/09 08/07/99 Liliana Waller MD [address] [place] [address] PCP - General Family Medicine 03/26/24 [employer] Relationship Specialty Start Date End Date Terri Santos DO PCP - Medical [employer] 08/08/09 08/07/99 Liliana Waller MD [address] [place] [address] PCP - General Family Medicine 03/26/24 Goals [...] or prosecute any alcohol or drug abuse patient.[facility] FOR RECORDS PERTAINING TO PATIENTS WHO [...] BE BASED ON THE PRIMARY CLINICAL RECORDS. [facility]. provides no warranty or guarantee of the accuracy or completeness of information in this document.
--- NOTE | 2024-06-01 09:28 | W.VEIN ---
Discharge Plan Discharge Disposition: Home, Self-Care Outpatient Diagnostics: VC Endovenous Ablation 1VeinRT (Routine) Timeframe: 1 Month Facility: [facility] - Location: [facility] Ordered By: Rahul Pedro Follow Up Appointments: 06/15/24 Plan of Treatment: EVLT of right SSV EVLT Tumescent Anesthesia: 500 mL 0.9% NS with 20 mL 1% Lidocaine and 10 mL 8.4% NAHCO3 Buffered Local Anesthesia: 10 mL of 1% Lidocaine Buffered Print Language: Italian Discharge Date/Time: 06/01/24 09:29
== END 2024-06-01 09:29 | disposition home or self-care (01) ==
PROVIDERS: PCP Radiology Diagnostic Radiology; Visit Provider Radiology Diagnostic Radiology
DX: I80.02 Phlebitis and thrombophlebitis of superficial vessels of left lower extremity (principal)
CPT/HCPCS: 93971; G0463

== ENCOUNTER 2024-06-15 12:30 | Outpatient (OUT) | payer OTHER, SELFPAY ==
--- NOTE | 2024-06-13 11:22 | V.VEINS.HP ---
Vital Signs 06/15/24 12:41 BP 146/68 H BP Location Left Brachial BP Position Sitting BP Cuff Size Adult BP Source Manual Cuff Respiration 16 Pulse 76 Pulse Source Monitor Pulse Oximetry (%) 99 Oxygen Delivery Method Room Air Comment The patient's blood pressure is elevated. Varicose Veins Patient in today for EVLT of right SSV. Rahul Smith MD personally performed the services described in this documentation, as scribed by Gerald Lopez RN in my presence and it is both accurate and complete. Gerald Smith RN, am scribing for, and in the presence of, Dr. Rahul Pedro and in the presence of the patient. thigh: bilateral, knee: bilateral, calf: bilateral, ankle: bilateral and delaney: bilateral aching and dull 3 2 years Worsened in recent months: Yes walking elevating extremities and compression stockings Reports heaviness, restless legs, limb pain, edema and leg edema History of lower extremity trauma: No Superficial thrombophlebitis: No Family history of varicose veins: no Has patient had previous lower extremity venous surgery: No Patient has previously received the following treatment(s) for lower extremity varicose veins: Reports none Does patient have a history of : not applicable Does patient intend to have future pregnancies: not applicable Has patient had lower extremity venous scan with relux testing: Yes Support hose used: Yes Problems walking or doing physical activity: Yes How does it affect you: unable to walk long distances Do you walk much: No Do you stand much: Yes Medication compliance: good Review of Systems ROS Narrative Rahul Smith MD personally performed the services described in this documentation, as scribed by Gerald Lopez RN in my presence and it is both accurate and complete. Gerald Smith RN, am scribing for, and in the presence of, Dr. Rahul Pedro and in the presence of the patient. Status of ROS 10 or more systems reviewed and unremarkable except as noted in history and below Cardiovascular Reports: edema and swelling of feet/ankles Musculoskeletal Reports: extremity pain, extremity swelling, joint pain, joint swelling and muscle cramps Integumentary/Breast Reports: rash, itching and redness [facility] History (Updated 06/01/24 @ 07:33 by Jane Farris) Phlebitis and thrombophlebitis of superficial vessels of left lower extremity ?I80.02 - Phlebitis and thrombophlebitis of superficial vessels of left lower extremity (ICD-10) Phlebitis and thrombophlebitis of superficial vessels of right lower extremity ?I80.01 - Phlebitis and thrombophlebitis of superficial vessels of right lower extremity (ICD-10) Hemorrhoids, internal ?K64.8 - Other hemorrhoids (ICD-10) Pain due to varicose veins of both lower extremities ?I83.813 - Varicose veins of bilateral lower extremities with pain (ICD-10) Tinea pedis ?B35.3 - Tinea pedis (ICD-10) Sleep apnea ?G47.30 - Sleep apnea, unspecified (ICD-10) Restless leg ?G25.81 - Restless legs syndrome (ICD-10) Onychomycosis ?B35.1 - Tinea unguium (ICD-10) Obesity ?E66.9 - Obesity, unspecified (ICD-10) Left ventricular failure ?I50.1 - Left ventricular failure, unspecified (ICD-10) Hypokalemia ?E87.6 - Hypokalemia (ICD-10) Hyperglycemia ?R73.9 - Hyperglycemia, unspecified (ICD-10) Hyperlipemia ?E78.5 - Hyperlipidemia, unspecified (ICD-10) Accelerated essential hypertension ?I10 - Essential (primary) hypertension (ICD-10) Elevated PSA ?R97.20 - Elevated prostate specific antigen [PSA] (ICD-10) Cardiomyopathy ?I42.9 - Cardiomyopathy, unspecified (ICD-10) Anxiety ?F41.9 - Anxiety disorder, unspecified (ICD-10) Surgical History (Updated 06/15/24 @ 12:48 by Gerald Lopez) Status post laser ablation of incompetent vein ?Z98.890 - Other specified postprocedural states (ICD-10) Status post laser ablation of incompetent vein ?Z98.890 - Other specified postprocedural states (ICD-10) Status post laser ablation of incompetent vein ?Z98.890 - Other specified postprocedural states (ICD-10) S/P TURP ?Z90.79 - Acquired absence of other genital organ(s) (ICD-10) Family History (Updated 04/06/24 @ 10:04 by Destini Carlin RN) Other Family history of CHF (congestive heart failure) Family history of cancer Family history of hypertension Family history of myocardial infarction Social History (Updated 04/06/24 @ 10:05 by Destini Carlin RN) Within the past year, how often did you have a drink containing alcohol: never Score interpretation: A score less than 4 is consistent with normal alcohol consumption. Smoking status: Never smoker Non-prescribed substance use: denies use Meds Home Medications and Allergies Home Medications ?Medication ?Instructions ?Recorded ?Confirmed ?Type amiloride 5 mg tablet 5 mg PO DAILY 04/06/24 04/06/24 History amlodipine 10 mg tablet 10 mg PO DAILY 04/06/24 04/06/24 History aspirin 325 mg tablet 325 mg PO DAILY 04/06/24 04/06/24 History carvedilol 25 mg tablet (Coreg) 25 mg PO BID 04/06/24 04/06/24 History doxazosin 4 mg tablet (Cardura) 4 mg PO QPM 04/06/24 04/06/24 History finasteride 5 mg tablet 5 mg PO DAILY 04/06/24 04/06/24 History hydralazine .Route DAILY 04/06/24 History hydrochlorothiazide 25 mg tablet 25 mg PO DAILY 04/06/24 04/06/24 History losartan 100 mg tablet 100 mg PO DAILY 04/06/24 04/06/24 History lovastatin 30 mg PO QAM 04/06/24 04/06/24 History montelukast 10 mg tablet 10 mg PO DAILY 04/06/24 04/06/24 History niacin 500 mg capsule,extended 500 mg PO DAILY 04/06/24 04/06/24 History release paroxetine HCl 20 mg tablet 20 mg PO DAILY 04/06/24 04/06/24 History potassium chloride 10 mEq 10 meq PO DAILY 04/06/24 04/06/24 History tablet,extended release (Klor-Con) apixaban 5 mg tablet (Eliquis) 5 mg PO BID 05/04/24 05/04/24 History Allergies Allergy/AdvReac Type Severity Reaction Status Date / Time clarithromycin Allergy Unknown Unknown Verified 04/06/24 09:39 Exam Narrative Exam Narrative: Rahul Smith MD personally performed the services described in this documentation, as scribed by Gerald Lopez RN in my presence and it is both accurate and complete. I, Gerald John RN, am scribing for, and in the presence of, Dr. Rahul Pedro and in the presence of the patient. Constitutional Vital Signs, click to edit/add: Last Vital Signs Pulse 70 04/20/24 09:25 Resp 18 04/20/24 09:25 BP 120/64 04/20/24 09:25 Pulse Ox 96 04/20/24 09:25 Documenting provider has reviewed patient's vital signs: yes Common normals: oriented x3 Nutritional appearance: overweight Lymph Lymphatic: no lymphedema noted Cardio Peripheral pulses: posterior tibial pulses present and dorsalis pedis pulses present Extremity General: calf tenderness, edema and other findings Right lower extremity: lower leg Right lower leg: inspection and palpation Left lower extremity: lower leg Left lower leg: inspection and palpation Neuro Common normals: oriented x3 Assessment and Plan Assessment and Plan (1) Pain due to varicose veins of both lower extremities: Plan f/u evaluation with physician along with right leg limited u/s Rahul Smith MD personally performed the services described in this documentation, as scribed by Gerald Lopez RN in my presence and it is both accurate and complete. Gerald Smith RN, am scribing for, and in the presence of, Dr. Rahul Pedro and in the presence of the patient. Procedures Procedure Instructions Procedures Plan of care: Risks and benefits of the procedure were discussed at length and informed written consent was obtained.? Time-out completed for verification of correct patient, procedure and site.? Staff present during time-out: Gerald Lopez RN,? Rahul Pedro MD, Jane Farris [facility] Time Out Time__1304 Patient prepped and procedure performed in usual sterile fashion. Risk of injury related to use of Diode laser and/or laser devices__CR___ ? Serial number of laser used :? [id number] Control panel self test performed, electrical cords in good condition, floor is dry, basin of water available, fire extinguisher in close proximity_CR__ Polycarbonate goggles available and Laser warning signs outside of doors___CR__ Eye protection provided to patient and staff in room_CR___ Use of laser retardant drapes and dull blackened instruments as directed__CR___ Use of nonflammable prep solutions and use of saline soaked sponges to protect tissues as indicated _CR___ Length ___35 cm Laser operated by _Dr. Pedro Physician verbal confirmation laser locked in place__CR__ Laser start time (date and time) __06/13/2024@__1318 Laser stop time(date and time) __06/13/2024@__1324 Burroughs _8.0___ Average laser use ___1997____Joules Average laser use___250 seconds Pulse continuous ___CR_? Pulse intermittent ___ Amount of Tumescent used __250cc____ Evaluated patient for signs and symptoms of electrical injury __CR___ ? Skin clear at insertion site __CR___ Patient tolerated procedure well.? Right leg Coban dressing applied to access site.? Applied right thigh high leg compression stocking. Will return on 06/22/2024 for right leg limited venous ultrasound and exam. IRahul MD personally performed the services described in this documentation, as scribed by Gerald Lopez RN in my presence and it is both accurate and complete. I, Gerald Lopez RN, am scribing for, and in the presence of, Dr. Rahul Pedro and in the presence of the patient.
--- NOTE | 2024-06-13 12:54 | W.VEIN ---
Discharge Plan Discharge Disposition: Home, Self-Care Outpatient Diagnostics: [facility] Facility EST LMTD (Routine) Timeframe: 2 Weeks Facility: [facility] - Location: [facility] Ordered By: Guillermo Gurrola VC EXT Venous RT LMTD (Routine) Timeframe: 2 Weeks Facility: [facility] - Location: Vein Center Ordered By: Guillermo Gurrola Follow Up Appointments: 06/22/2024 Plan of Treatment: f/u evaluation with physician along with right leg limited u/s Patient Instructions: Endovenous Ablation (DC) Print Language: Indonesian Discharge Date/Time: 06/15/24 12:51
--- NOTE | 2024-06-15 12:34 | VEIN_ITS ---
[address] [address] Patient Name: RACHEL NGUYEN MRN: [id number] date: 1955 Sex: M Assigned Patient Location: Current Patient Location: Accession/Order Number: [id number] Exam Date: 06/15/2024 12:38 Report Date: 06/15/2024 13:38 At the request of: MARY RATLIFF Procedure: VC Endovenous Ablation 1VeinRT EXAMINATION: VC Endovenous Ablation 1VeinRT HISTORY: I83.813 - Varicose veins of bilateral lower extremities w... The risks and benefits of the procedure had been previously discussed, and were rediscussed at length. Informed written consent was obtained. Gerald Lopez RN and Jane Sprague RDMS assisted. Time out procedure was performed. The right lower extremity was prepared and draped in the usual sterile fashion to allow knee flexion in the sterile field. Duplex ultrasound probe was draped in a sterile cover, sterile transmission gel was used. Venous mapping was performed with the areas of dilation and large tributaries marked. The total length was 35 cm from the entry 3 cm above the ankle to proximal to insertion into deeper musculature at level of popliteal fossa. The diameter of the right small saphenous vein ranged from 9.4 mm. A 30 gauge needle and 1% buffered lidocaine was used to anesthetize the entry site. A 4 mm incision was made with a scalpel and the saphenous vein was entered percutaneously under direct ultrasound guidance with a micropuncture set, a single stick was successful in gaining access. A micro-guide wire was inserted and the needle removed. A micro-set including a dilator was inserted over the microwire and the needle and dilator were removed. A guide wire was inserted through the micro-set and guided through the saphenous vein to the saphenofemoral junction. The dilator was removed and an introducer sheath was inserted over the wire until the end of the sheath entered the saphenofemoral junction. The dilator and wire were removed and the 600 micron fiber was introduced and placed and positioned so that it extended beyond the sheath and was 3 cm distal to the saphenofemoral or saphenopopliteal junction. Final position of the fiber was determined by ultrasound guidance and duplex imaging. Alexiscent anesthetic was delivered by ultrasound guidance. 250 cc of fluid was delivered along the entire course of the saphenous vein. The solution consisted of 1000 cc of normal saline with 40 mL of 1% lidocaine and 20 mL of sodium bicarbonate. A final positioning check was made. The energy source was turned on by means of the foot pedal and the fiber and sheath were withdrawn. The total number of Joules delivered was 1998. The laser was active for 250 seconds under continuous pulse, average laser use of 8 J. Laser start time: 1:18 PM Laser stop time: 1:24 PM Date: 06/15/2024. A duplex ultrasound revealed compressibility and flow at the saphenofemoral junction immediately after the procedure. Hemostasis at the access site was achieved. The skin incision of the saphenous vein was closed with a 4 x 4. A compression stocking was applied. Postop instructions were given. A follow up appointment was recommended and scheduled. The patient tolerated the procedure well. Electronically authenticated by: MARY RATLIFF Date: 06/15/2024 13:38
[2024-06-15] MEDS: 0.9 % SODIUM CHLORIDE 500 ML, LIDOCAINE HCL 20 ML, SODIUM BICARBONATE 10 MEQ INJ (12:35)
[2024-06-15] MEDS: LIDOCAINE HCL 1% 100 MG/10 ML MDV INJ (12:35)
--- OUTSIDE RECORDS SUMMARY | 2024-06-15 12:36 | XMS_ITS | CCD ---
Author Organization [facility] Care Team Providers Care Pega Developer Name Role Phone Pocarrilloalska Danyell Unavailable Unavailable Pocarrilloalska, Danyell Unavailable Unavailable [facility] Unavailable Unavailable Pocarrilloalshortencia, Danyell Unavailable Unavailable Omar Danyell Unavailable Unavailable Terri Santos Unavailable Unavailable Terri Santos Unavailable Chriss Marie Unavailable Unavailable Terri Santos Unavailable Unavailable Unavailable Terri Santos Primary Care Physician [phone] MD Terri Santos Primary Care Provider MD Luiz Morrison Attending Provider MD Burak Rangel Attending Provider [phone] Burak Rangel Unavailable MD Terri Santos Primary Care Provider MD Luiz Morrison Attending Provider [phone] Terri Santos DO Primary Care Provider Tom, [...] Morrison Admitting Unavailable Luiz Morrison Attending Unavailable AllsopTerri Primary Care Unavailable MorrisonLuiz Admitting Unavailable MorrisonLuiz Attending Unavailable Allsop, Terri Primary Care Unavailable Burak Rangel Admitting Unavailable Burak Rangel Attending Unavailable Terri Santos Primary Care Unavailable MD Terri Santos Primary Care Provider MD Burak Rangel Attending Provider Allsop DOTerri Primary Care Provider DELORES AC Attending Unavailable ALLSOP, TERRI PEARCE Primary Care Unavailab le Allsop DO, Terri D Unavailable UnavailLiliana Pond MD Primary Care Provider Liliana Waller Primary Care Physician [phone] Allsop, Terri D Admitting Unavailable Allsop, Terri Pfeiffer Attending Unavailable Allsop, Terri Pfeiffer Referring Unavailable Luiz MORRISON Admitting Unavailable MORRISONLuiz Attending Unavailable Allsop, Terri Pfeiffer Admitting Unavailable Allsop, Terri Pfeiffer Attending Unavailable MORRISON, Luiz R Attending Unavailable MORRISONLuiz R Attending Unavailable MORRISONLuiz Attending Unavailable MORRISON, Luiz R Admitting Unavailable Allsop DO, Terri Pearce Primary Care Provider Jordyn Zhu OD Unavailable [phone] ALLSOP, TERRI MIRIAM Primary Care Unavailab JOSSELIN Keen Referring Unavailable JOSSELIN DECKER Attending Unavailable ADAM JACK Attending Unavailable ALLSOP, TERRI Pfeiffer Attending Unavailable DOLCEADAM Attending Unavailable ALLSOP, TERRI Pfeiffer Attending Unavailable ALLSOP, TERRI Pfeiffer Attending Unavailable DOLADAM HOLLINS Attending Unavailable DOLGUNJAN, ADAM Pfeiffer Attending Unavailable GUNNAR ADLER Attending Unavailable LILIANA WALLER Attending Unavailable ADAM JACK Attending Unavailable Allergies Allergy Classification Reported Allergen(s) Allergy Type Date of Onset Reaction(s) Facility Macrolides (antibiotic) (1 source) Clarithromycin Drug Allergy Unknown [facility] (1 source) No Known Medication Allergies; Translations: [No Known Medication Allergies] Propensity to adverse reactions to drug (disorder) [facility] (9 sources) shellfish, unspecified Allergy to substance (finding) [facility] 600 DO Work Phone: (15 sources) Clarithromycin; Translations: [clarithromycin] Drug Allergy Unknown [facility] [place] (2 sources) Shellfish; Translations: [SHELLFISH CONTAINING PRODUCTS] Drug Allergy 3 [facility] (2 sources) Shellfish; Translations: [SHELLFISH DERIVED] Propensity to adverse reactions 4 Other [facility] (6 sources) Clarithromycin Allergy to substance 3 Unknown [facility] Work Phone: Medications Current Medications Medication Drug Class(es) Dates Sig (Normalized) Sig (Original) acetaminophen 325 mg / HYDROcodone bitartrate 7.5 mg oral tablet (2 sources) Opioid Agonist Start: 02-12-2022 take 1 tablet by mouth once [place] 325 mg-7.5 mg oral tablet 1 tab(s), Oral, Once, 1 tab(s), Refill(s) 0, Take 1 hour prior to procedure. Don't drive or operate machinery while taking this medication., [facility], 178, cm, 12/22/21 8:18:00 EDT, Height/Length Dosing, 137.1, kg, 12/22/21 8:17:00 EDT,... Start Date: 02/12/22 Status: Ordered aMILoride hydrochloride 5 mg oral tablet (20 sources) Potassium-sparin g Diuretic Start: 04-13-2022 take 5 mg by mouth twice daily Amiloride Active 5 MG PO Twice daily April 13, 2022 12:00am Start: 06-27-2019 take 2 tablets by mo ut once daily aMILoride (MIDAMOR) 5 mg tablet TAKE 2 TABLETS BY MOUTH ONCE DAILY FOR 90 DAYS 1 06/27/2019 Active End: 09-30-2023 take 1 tablet by mouth once daily aMILoride (Midamor) 5 mg tablet Take 1 tablet (5 mg) by mouth once daily. 0 09/30/2023 Discontinued (Other) aMILoride HCl Ac tive Comment on above: TAKE 2 TABLETS BY MO UT ONCE DAILY FOR 90 DAYS amLODIPine 10 mg oral tablet (20 sources) Dihydropyridine Calcium Channel Jonathan Start: 06-13-20 24 take 1 tablet by mouth once daily amLODIPine (Norvasc) 10 MG tablet Indications: Primary hypertension (CMS/HCC) Take 1 tablet (10 mg) by mouth Daily 30 tablet 1 06/13/2024 Active Start: 05-19-2023 End: 06-13-2024 take 1 tablet by mouth in the morning amLODIPine (Norvasc) 10 MG tablet Indications: Primary hypertension (CMS/HCC) Take 1 tablet (10 mg) by mouth in the morning. 30 tablet 11 05/19/2023 06/13/2024 Discontinued (Reorder) Start: 06-10-2021 End: 09-30-2023 take 5 mg by mouth once daily at bedtime Amlodipine Active 5 MG PO Daily at bedtime April 13, 2022 12:00am amLODIPine Besyl ate Active Comment on above: Take 5 mg by mouth o nce daily. apixaban 5 mg oral tablet (7 sources) Factor Xa Inhibitor Start: 04-06-20 take 1 tablet by mouth in the morning apixaban (Eliquis) 5 MG tablet Indications: Blood clot in vein Take 1 tablet (5 mg) by mouth in the morning and 1 tablet (5 mg) before bedtime. 60 tablet 5 04/06/2024 Active {1 (Ascorbic Acid 7540 MG / POLYETHYLENE GLYCOL 3350 22338 MG / Potassium Chloride 1200 MG / Sodium Ascorbate 56275 MG / Sodium Chloride 3200 MG Powder for Oral Solution) / 1 (POLYETHYLENE GLYCOL 3350 428837 MG / Potassium Chloride 1000 MG / [...] (see comment) Start Date: 08/06/11 Status: Ordered carvedilol (CORE G) 25 mg tablet Take 12.5 mg by mouth twice daily with meals. Active take 4 tablets by mo uth twice daily Carvedilol 12.5 MG Oral Tablet TAKE 12.5 TABLET Twice daily Quantity: 180 Refills: 3 Ordered: 11-May-2022 Bienvenido Lee APRN-MEDICAL OFFICE ASSISTANT INSTRUCTOR, Valerie Active Carvedilol 12.5 MG Oral Tablet TAKE [...] extended release oral tablet (1 source) Uncompetitive D-ifragd-L-aspartate Receptor Antagonist, Sigma-1 Agonist Start: End: take [...] oral capsule (7 sources) Tetracycline-class Drug Start: 022 take 100 mg by mouth twice daily Doxycycline Hyclate Active 100 MG PO Twice daily 27 05April 27, 2022 12:00am Start: 12-01-2021 End: 12-22-2021 take 1 capsule by mouth twice daily doxycycline hyclate 100 mg Cap 100 mg = 1 cap(s), Oral, BID, X 21 day(s), # 42 cap(s), Refills(s) 0, Pharmacy: [facility], 178, cm, 11/26/21 12:38:00 EDT, [...] 1 tablet by mouth once daily finasteride (PROSCAR) 5 mg tablet Take 5 mg by mouth once daily. 04/30/2022 Active Finasteride Acti ve Comment on above: Take [...] day Quantity: 1 Refills: 0 Ordered: 10-Mar-2021 Yves, Chriss Start: 10-Mar-2021 End: 19-Mar-2021 Generic Substitution Allowed [...] 100-25 MG Orally Once a day Active icosapent ethyl (4 sources) take 4 g by mouth once daily icosapent ethyl (VASCEPA ORAL) Take 4 g by mouth once daily. Active take 4 g by mouth once daily ico sapent ethyl (VASCEPA ORAL) Take 4 g by mouth once daily. 0 Active Vascepa Not-Taki ng Comment on above: Take 4 g by mouth on ce daily. loratadine 10 mg oral tablet (20 sources) Start: 03-31-2022 take 1 tablet by mouth once daily [...] mg cap Take by mouth once daily. Active Claritin Not-Ladonna ing Comment on above: Take by mouth once d aily. losartan potassium 100 mg oral tablet (20 sources) Angiotensin 2 Receptor Jonathan Start: 4 take 1 tablet by mouth once daily losartan (Cozaar) 100 MG tablet Indications: Primary hypertension (CMS/HCC) Take 1 tablet (100 mg) by mouth Daily 30 tablet 1 06/13/2024 Active Start: 11-22-2019 End: 06-13-2024 take 1 tablet by mouth in the morning losartan (Cozaar) 100 MG tablet Indications: Primary hypertension (CMS/HCC) Take 1 tablet (100 mg) by mouth in the morning. 30 tablet 11 05/19/2023 06/13/2024 Discontinued (Reorder) Comment on above: Take 100 mg by [...] Ordered Start: 06-12-2019 take 1 tablet by [facility] once daily lovastatin (MEVACOR) 20 mg tablet TAKE 1 & 1 2 (ONE & ONE HALF) TABLETS BY MOUTH ONCE DAILY 9 06/12/2019 Active Start: 09-23-2017 take 3 tablets by [facility] once daily lovastatin 10 mg Tab 30 mg = 3 tab(s), Oral, Daily, Refills(s) 0 Start Date: 09/23/17 Status: Ordered take 2 tablets by [facility] every other day lovastatin (Mevacor) [...] tablet (20 sources) Leukotriene Receptor Antagonist Start: 4 take 1 tablet by mouth at bedtime montelukast (Singulair) 10 MG tablet Indications: Seasonal allergies Take 1 tablet (10 mg) by mouth at bedtime 30 tablet 1 06/13/2024 Active Start: 04-13-2022 End: 06-13-2024 take 1 tablet by mouth at bedtime montelukast (Singulair) 10 MG tablet Indications: Seasonal allergies Take 1 tablet (10 mg) by mouth at bedtime. 30 tablet 11 05/27/2023 06/13/2024 Discontinued (Reorder) Start: 12-10-2009 End: 01-09-2010 take 1 tablet [...] Refills: 0 Ordered: 31-Aug-2021 DO Active omega 7-rxe-vnp-fish oil 360 mg-108 mg- 180 mg-1,200 mg capsule (1 source) End: 09-30-2023 take 1 capsule by mouth once daily omega 1-kyc-eyc-fish oil 360 mg-108 mg- 180 mg-1,200 mg capsule Take 1 capsule by mouth once daily. 0 09/30/2023 Discontinued (Other) [place]-3 Fatty Acids (3 sources) Start: 04-13-2022 take 2000 mg by mouth once daily at bedtime [place]-3 Fatty Acids Active 2000 MG PO Daily at bedtime April 13, 2022 12:00am [place]-3 Fatty Acids ([place] 3 Fish Oil) Capsule (2 sources) Start: 04-13-2022 take 1 capsule by mouth once daily at bedtime [place]-3 Fatty Acids ([place] 3 Fish Oil) Capsule Active 2000 MG [...] Start: 09-23-2017 take 1 tablet by [facility] once daily paroxetine 20 mg Tab 20 mg = 1 tab(s), Oral, Daily, Refills(s) 0 Start Date: 09/23/17 Status: Ordered Comment on above: Take 20 mg by mouth once daily. phenylephrine hydrochloride 25 mg/ml ophthalmic solution (3 sources) alpha-1 Adrenergic Agonist Start: 06-01-2024 End: 06-02-2024 PHENYLephrine 2.5 % 1 Drop (AK-DILATE, DEBRA-SYNEPHRINE) Start: 06-01-2024 End: 06-02-2024 1 Drop, BOTH EYES, DIRECT ED, Starting on Tue06/01/24 at 1430, Until 06/02/24 at 0229, Administer for dilation PROTECT FROM LIGHT Start: 05-21-2022 End: 05-22-2022 PHENYLephrine 2.5 % 1 Drop ( AK-DILATE, DEBRA-SYNEPHRINE) Plenvu oral powder for reconstitution (3 sources) Start: 12-11-2021 take 1 dose by mouth once Plenvu oral powder for reconstitution See Instructions, 1 EA, Refill(s) 0, samples given to patient (Rx), Per physicians instructions prior to colonoscopy Start Date: 12/11/21 Status: Ordered potassium chloride 10 meq extended release oral tablet (20 sources) Start: 10-03-2023 take 7 tablets by mouth once daily potassium chloride CR (Klor-Con) 10 MEQ ER tablet Indications: Hypokalemia TAKE 7 TABLETS BY MOUTH ONCE DAILY FOR 30 DAYS 210 tablet 11 10/03/2023 Active Start: 04-13-2022 take 70 mEq by mouth once daily at bedtime Potassium Chloride Active 70 MEQ PO Daily at bedtime April 13, 2022 12:00am Start: 10-07-2011 take 7 tablets by mo [facility] once daily Klor-Con 10 mEq 70 mEq = 7 tab(s), Oral, Daily, # 210, Refills(s) 0, Prophylaxis Start Date: 10/07/11 Status: Ordered Start: 10-07-2011 take 7 tablets by [facility] once daily Klor-Con 10 mEq 70 mEq = 7 tab(s), Oral, Daily, # 210, Refills(s) 0, Prophylaxis Start Date: 10/07/11 Status: Ordered Start: 10-07-2011 take 7 tablets by [facility] once daily Klor-Con 10 mEq 70 mEq = 7 tab(s), Oral, Daily, # 210, Refills(s) 0, Prophylaxis Start Date: 10/07/11 Status: Ordered potassium chlori de CR (Klor-Con M10) 10 MEQ ER tablet Take 10 mEq by mouth in the morning. Do not crush or chew. . Active take 60 mEq by mouth once daily potassium chloride (KLOR-CON ORAL) Take 60 mEq by mouth once daily. Active potassium chlori de CR 20 mEq [...] daily. proparacaine hydrochloride 5 mg/ml ophthalmic solution (3 sources) Local Anesthetic Start: 06-01-2024 End: 06-02-2024 proparacaine 0.5 % 1 Drop (ALCAINE) Start: 06-01-2024 End: 06-02-2024 1 Drop, BOTH EYES, DIRECT ED, Starting on 06/01/24 at 1430, Until 06/02/24 at 0229, Administer for pneumo tonometry, tonopen tonometry, or pachymetry. In the event of a proparacaine shortage, administer tetracaine 0.5% ophthalmic drops 1 drop in the left eye as directed for pneumo tonometry, tonopen tonometry, or pachymetry Start: 05-21-2022 End: 05-22-2022 proparacaine 0.5 % 1 Drop (A LCAINE) solifenacin succinate 10 mg oral tablet (3 sources) Cholinergic Muscarinic Antagonist Start: 04-27-2022 take 1 tablet by mouth once daily Solifenacin (Vesicare) 10 mg tablet Active 10 MG PO Daily April 27, 2022 12:00am testosterone cypionate 200 mg/ml injectable solution (19 sources) Androgen Start: 04-13-2022 Testosterone Cypionate Active 300 MG IM EVERY [...] q4wk, # 2 mL, Refills(s) 4, Pharmacy: [facility], 177, cm, 08/28/20 9:27:00 EST, Height/Length Dosing, 84, kg, 08/28/20 9:27:00 EST, Weight Dosing Start Date: 08/28/20 Status: Ordered tropicamide 10 mg/ml ophthalmic solution (3 sources) Anticholinergic Start: 06-01-2024 End: 06-02-2024 tropicamide 1 % 1 Drop (MYDRIACYL) Start: 06-01-2024 End: 06-02-2024 1 Drop, BOTH EYES, DIRECT ED, Starting on Tue06/01/24 at 1430, Until 06/02/24 at 0229, Administer for dilation Start: 05-21-2022 End: 05-22-2022 tropicamide 1 % 1 Drop (MYDR IACYL) Completed/Discontinued Medications Medication Drug Class(es) Dates Sig [...] procedure, # 2 tab(s), Refills(s) 0, Pharmacy: [facility], 178, cm, 11/04/21 10:45:00 EDT, Height/Length [...] Oil Not -Taking Flaxseed Oil Act ranjana Multi-Vitamin Oral Tablet (8 sources) take 1 tablet by mouth once daily Multi-Vitamin Oral Tablet TAKE 1 TABLET DAILY. Quantity: 0 Refills: 0 Ordered: 31-Aug-2021 DO Active [place]-3 CAPS (8 sources) [place]-3 CAPS LADONNA E DIRECTED. Quantity: 0 Refills: 0 Ordered: 31-Aug-2021 DO Active Potassimin (2 sources) Potassimin Not-T aking spironolactone 25 mg oral tablet (2 sources) [...] type, unspecified] Onset: 1 01-24-2014 Chronic Cataract (2 sources) Bilateral senile combined form cataracts of eyes; [...] 02-21-2020 Chronic Genitourinary symptoms and ill-defined conditions (18 sources) Urge incontinence; Translations: [Urge incontinence of urine] Onset: 2 Chronic Glaucoma (2 sources) Ocular hypertension; Translations: [Ocular hypertension, bilateral] Onset: [...] use of anticoagulant; Translations: [long term care administrator (current) use of anticoagulants] 05-10-2024 Episodic Other [...] [Vitreous degeneration, bilateral] Chronic Other eye disorders (3 sources) Bilateral vitreous floaters; Translations: [Other vitreous opacities, bilateral] Onset: 8 Chronic Other eye disorders (2 sources) Posterior vitreous detachment of left eye; Translations: [Vitreous degeneration, left eye] Onset: 8 04-12-2018 Chronic Other eye disorders (2 sources) Bilateral floppy eyelid syndrome of eyes; Translations: [...] Chronic Other nutritional; endocrine; and metabolic disorders (6 sources) Obesity caused by energy imbalance; Translations: [...] limb movement disorder] Chronic Residual codes; unclassified (4 sources) Obstructive sleep apnea syndrome; Translations: [Obstructive sleep apnea (adult) (pediatric)] Onset: 3 06-01-2024 Chronic Residual codes; unclassified (4 sources) Obstructive [...] Retinal detachments; defects; vascular occlusion; and retinopathy (3 sources) Bilateral epiretinal membrane of eyes; Translations: [Puckering of macula, bilateral] Onset: 1 Resolved: 2 Chronic Unclassified (20 sources) Patient encounter status [...] Da te Episodic/Chronic Blindness and vision defects (2 sources) Bilateral myopia of eyes; Translations: [Myopia, bilateral] [...] 05-27-2023 05-27-2023 Episodic Other connective tissue disease (7 sources) Pain of toe of right foot; Translations: [Pain in right toe(s)] Onset: 01-04-2023 01-04-2023 Episodic Other connective tissue disease (7 sources) Pain of toe of left foot; Translations: [Pain in left toe(s)] Onset: 01-04-2023 01-04-2023 Episodic Other screening for suspected conditions (not mental disorders or infectious disease) (20 sources) Liver function tests abnormal; Translations: [Raised prostate specific antigen] Onset: 12-11-2021 Resolved: 05-10-2024 12-08-2021 Episodic Other skin disorders (6 sources) Skin tag; Translations: [Other hypertrophic disorders of the skin] Onset: 12-18-2023 12-18-2023 Episodic Residual codes; unclassified (20 sources) Edema; Translations: [Edema, unspecified] Onset: 03-11-2023 12-08-2021 Episodic Spondylosis; intervertebral disc disorders; other back problems (12 sources) Acute back pain with sciatica; Translations: [Lumbago with sciatica, right side] Onset: 03-11-2023 03-11-2023 Episodic Thyroid disorders (20 sources) Hypothyroidism; Translations: [Hypothyroidism, unspecified] Onset: 03-11-2023 Resolved: 05-21-2023 05-22-2020 Chronic Unclassified (8 sources) Never smoked tobacco; Translations: [Never a smoker] Results Test Name Value Interpretation Reference Range Facility FUNDUS PHOTOS OU (BOTH EYES) on 06-01-2024 [facility] Radiology Study observation (narrative) [facility] OCT MACULA CIRRUS OU (BOTH E YES)on 06-01-2024 [facility] Radiology Study observation (narrative) [facility] CHEMISTRYOrdered By: SYSTEM SYSTEM on 05-25-2024 Prostate specific Ag [Mass/Vol] 0.6 ng/mL Normal 0.1 - 3.5 ng/mL [facility] Comment on above: Interpretive Data: T he concentration of PSA determined by different manufacturers can vary due to differences in assay methods and reagent specificity. Values obtained from different assay methods cannot be used interchangeably. The methodology used for this result was chemiluminescence using [employer]'s Access Hybritech PSA reagent. PSA Totalon 05-25-2024 Prostate specific Ag [Mass/Vol] 0.6 ng/mL Normal 0.1-3.5 [facility] Comment on above: Result Comment: The concentration of PSA determined by different manufacturers can vary due to differences in assay methods and reagent specificity. Values obtained from different assay methods cannot be used interchangeably. The methodology used for this result was chemiluminescence using [employer]'s Access Hybritech PSA reagent. Performed By: #### 1 [id number] #### [facility] [address] [place] [address] US LE Venous Duplex Righton 11-29-2023 US [...] Dyllan Kitchen M.D. Transcribed by: REGLA Technologist: [facility] Consent for Treatmenton 11-06 Consent for Treatment [id number] 0TIFF Normal [facility] Physician Orderon 11-18-2023 Physician Order [id number] 0TIFF Normal [facility] CBC w/ Auto Diffon 4 Basophils/100 WBC (Bld) 0.8 % Normal 0.0-2.0 [facility] Comment on above: Performed By: #### 2 [id number], [id number], [id number], [id number] #### [facility] [address] [place] [address] Basophils/Leukocytes Auto (Bld) [Pure # fraction] 0.1 E9/L Normal 0.0-0.2 [facility] Comment on above: Performed By: #### 2 [id number], [id number], [id number], [id number] #### [facility] [address] [place] [address] 690[address] Eosinophils (Bld) [#/Vol] 0.3 E9/L Normal 0.0-0.5 [facility] Comment on above: Performed By: #### 2 505395, [id number], [id number], [id number] #### [facility] [address] [place] [address] 08495 Eosinophils/100 WBC (Bld) 3.4 % Normal 0.0-8.0 [facility] Comment on above: Performed By: #### 2 747338, [id number], [id number], [id number] #### [facility] [address] [place] [address] 80993 Erythrocyte distribution width (RBC) [Ratio] 13.6 % Normal 10.9-14.2 [facility] Comment on above: Performed By: #### 2 043541, [id number], [id number], 0512839 #### [facility] [address] [place] [address] 86389 Hematocrit (Bld) [Volume fraction] 39.9 % Normal 37.7-49.0 [facility] Comment on above: Performed By: #### 2 359666, [id number], 7462451, [id number] #### [facility] [address] [place] [address] 87048 Hemoglobin (Bld) [Mass/Vol] 13.7 g/dL Normal 13.5-17.5 [facility] Comment on above: Performed By: #### 2 721007, [id number], 8215548, 3734588 #### [facility] [address] [place] [address] 50547 Lymphocytes (Bld) [#/Vol] 1.5 E9/L Normal 1.0-4.0 [facility] Comment on above: Performed By: #### 2 444178, [id number], 7508144, 6990359 #### [facility] [address] [place] [address] Lymphocytes/100 WBC (Bld) 20.2 % Normal 14.0-50.0 [facility] Comment on above: Performed By: #### 2 774074, [id number], 7733469, 3434639 #### [facility] [address] [place] [address] 24216 MCH (RBC) [Entitic mass] 30.4 pg Normal 27.0-34.0 [facility] Comment on above: Performed By: #### 2 577186, [id number], 6073910, 1734512 #### [facility] [address] [place] [address] 10033 MCHC (RBC) [Mass/Vol] 34.3 g/dL Normal 31.4-36.0 [facility] Comment on above: Performed By: #### 2 814859, [id number], 9461375, 3896096 #### [facility] [address] [place] [address] 63216 MCV (RBC) [Entitic vol] 88.6 fL Normal 80.0-100.0 [facility] Comment on above: Performed By: #### 2 036799, [id number], 2634893, 4630887 #### [facility] [address] [place] [address] 64143 Monocytes (Bld) [#/Vol] 0.7 E9/L Normal 0.2-1.0 [facility] Comment on above: Performed By: #### 2 123476, [id number], [id number], 3834517 #### [facility] [address] [place] [address] 84004 Neutrophils (Bld) [#/Vol] 5.0 E9/L Normal 2.0-7.5 [facility] Comment on above: Performed By: #### 2 559252, [id number], 7559153, 2800605 #### [facility] [address] [place] [address] 21979 Neutrophils/100 WBC (Bld) 66.1 % Normal 36.0-75.0 [facility] Comment on above: Performed By: #### 2 412634, [id number], 9828290, 1921831 #### [facility] [address] [place] [address] Platelet mean volume (Bld) [Entitic vol] 9.1 fL Normal 6.4-10.8 [facility] Comment on above: Performed By: #### 2 714160, [id number], 6966905, 0245565 #### [facility] [address] [place] [address] Platelets (Bld) [#/Vol] 216.0 E9/L Normal 150.0-500.0 [facility] Comment on above: Performed By: #### 2 397769, [id number], 6393664, 2453610 #### [facility] [address] [place] [address] RBC (Bld) [#/Vol] 4.5 E12/L Normal 4.3-5.9 [facility] Comment on above: Performed By: #### 2 441018, 14834186, 5664719, 8854564 #### [facility] [address] [place] [address] 50105 WBC corrected for nucl RBC Auto (Bld) [#/Vol] 7.5 E9/L Normal 4.0-11.0 [facility] Comment on above: Performed By: #### 2 933969, [id number], 4637343, 5984740 #### [facility] [address] [place] [address] CHEMISTRYOrdered By: SYSTEM SYSTEM on 10-21-2023 Albumin [...] 10-21-2023 Albumin [Mass/Vol] 4.3 g/dL Normal 3.3-5.0 [facility] Comment on above: Performed By: #### 2 030693, [id number], 7775609, 4854469 #### [facility] [address] [place] [address] Albumin/Globulin (S) [Mass conc ratio] 1.7 Normal 1.1-2.2 [facility] Comment on above: Performed By: #### 2 927272, [id number], 8015361, 6552754 #### [facility] [address] [place] [address] ALP [Catalytic activity/Vol] 66 Int._Unit/L Normal 21-98 [facility] Comment on above: Performed By: #### 2 239399, 15038708, 7112366, 2569333 #### [facility] [address] [place] [address] ALT No additional P-5'-P [Catalytic activity/Vol] 17 Int._Unit/L Normal 6-46 [facility] Comment on above: Performed By: #### 2 983517, [id number], 8706447, 2737644 #### [facility] [address] [place] [address] Anion gap [Moles/Vol] 13 mmol/L Normal 6-16 [facility] Comment on above: Performed By: #### 2 977997, 00492838, 7668251, 4727940 #### [facility] [address] [place] [address] AST [Catalytic activity/Vol] 17 Int._Unit/L Normal 5-43 [facility] Comment on above: Performed By: #### 2 874265, 97317852, 6864602, 0517487 #### [facility] [address] [place] [address] Bilirubin [Mass/Vol] 0.9 mg/dL Normal 0.0-1.1 [facility] Comment on above: Performed By: #### 2 131425, 06213827, 8575462, 7732407 #### [facility] [address] [place] [address] Calcium [Mass/Vol] 8.7 mg/dL Low 8.9-11.1 [facility] Comment on above: Performed By: #### 2 677647, 24812514, 0435870, 3888742 #### [facility] [address] [place] [address] Chloride [Moles/Vol] 104 mmol/L Normal 101-111 [facility] Comment on above: Performed By: #### 2 380255, 83476361, 5868585, 9555969 #### [facility] [address] [place] [address] CO2 [Moles/Vol] 27 mmol/L Normal 21-31 [facility] Comment on above: Performed By: #### 2 902343, 92329751, 5682355, 7339075 #### [facility] [address] [place] [address] Creatinine [Mass/Vol] 0.6 mg/dL Normal 0.5-1.3 [facility] Comment on above: Performed By: #### 2 139994, 98123769, 3869500, 5331172 #### [facility] [address] [place] [address] Globulin (S) [Mass/Vol] 2.6 g/dL Normal 1.4-4.0 [facility] Comment on above: Performed By: #### 2 129480, 75712457, 0242853, 0540640 #### [facility] [address] [place] [address] Glucose [Mass/Vol] 94 mg/dL Normal 55-199 [facility] Comment on above: Performed By: #### 2 667534, 30236175, 1215223, 8469078 #### [facility] [address] [place] [address] Potassium [Moles/Vol] 3.4 mmol/L Low 3.5-5.3 [facility] Comment on above: Performed By: #### 2 023495, 45720585, 1479164, 1607824 #### [facility] [address] [place] [address] Protein [Mass/Vol] 6.9 g/dL Normal 6.0-7.8 [facility] Comment on above: Performed By: #### 2 312658, 88405349, 0895557, 3436997 #### [facility] [address] [place] [address] Sodium [Moles/Vol] 141 mmol/L Normal 135-145 [facility] Comment on above: Performed By: #### 2 471015, 56923559, 5339568, 8423850 #### [facility] [address] [place] [address] Urea nitrogen [Mass/Vol] 9 mg/dL Normal 5-21 [facility] Comment on above: Performed By: #### 2 995544, 66136470, 2546075, 5590942 #### [facility] [address] [place] [address] Urea nitrogen/Creatinine [Mass ratio] 15 No Units Normal 10-20 [facility] Comment on above: Performed By: #### 2 152157, 89596432, 8857663, 8531760 #### [facility] [address] [place] [address] Consent for Treatmenton 10-06 Consent for Treatment [id number] 0TIFF Normal [facility] HEMATOLOGYOrdered By: SYSTEM SYSTEM on 10-21-2023 [...] Cholesterol [Mass/Vol] 172 mg/dL Normal 120-200 [facility] Comment on above: Performed By: #### 2 901192, 36545187, 3795774, 1017758 #### [facility] [address] [place] [address] Cholesterol in HDL [Mass/Vol] 32 mg/dL Invalid Interpretation Code [facility] Comment on above: Result Comment: '>= 60 LOW RISK' '<= 40 HIGH RISK' Performed By: #### 2 365063, 01514911, 9898538, 9758032 #### [facility] [address] [place] [address] Cholesterol in LDL [Mass/Vol] 107 mg/dL Normal <=129 [facility] Comment on above: Performed By: #### 2 033490, 07079901, 8223352, 0045367 #### [facility] [address] [place] [address] Cholesterol in VLDL [Mass/Vol] 38 mg/dL Normal 7-40 [facility] Comment on above: Performed By: #### 2 726094, 16300568, 9825995, 3923199 #### [facility] [address] [place] [address] Triglyceride [Mass/Vol] 192 mg/dL High <=149 [facility] Comment on above: Performed By: #### 2 697209, 59288189, 9591293, 3010233 #### [facility] [address] [place] [address] Physician Orderon 10-21-2023 Physician Order [id number]. 00TIFF Normal [facility] eGFRon 10-21-2023 eGFR 105 mL/min/1.73 m2 Normal >=59 [facility] Comment on above: Order Comment: Order added by Discern Expert. Performed By: #### 2 525453, 58843373, 2582542, 3962029 #### [facility] [address] [place] [address] Screenson 06-16-2023 Screens [id number] .00TIFF Normal [facility] Ambulatory Visit Summaryon 1 08-15-2022 Ambulatory Visit [...] [facility] [address], [place] [address]- Medications What How Much When Why Instructions [...] colonoscopy Fat (more content not included)... Normal [facility] Patient Educationon 06-15-20 Patient Education Urology [...] Follow these instructions at home: ? Take hyrb-pqu-daqbdbr and prescription medicines only as told by [...] the medicine (more content not included)... Normal [facility] Urology Office/Clinic Noteon 06-15-2023 Urology Office/Clinic [...] URL [facility] [address], [place] [address]- Additional Instructions: 1 yr with PSA, JEANNA [...] Elevated PS (more content not included)... Normal [facility] Comment on above: Result Comment: Elec [...] 0.7 mg/dL Normal 0.5 - 1.3 mg/dL [facility] Remisol GFR/1.73 sq M.predicted among blacks MDRD (S/P/Bld) [Vol rate/Area] mL/min/1.73 m2 Normal >=59mL/min/ 1.73 m2 [facility] Chem S GFR/1.73 sq M.predicted among non-blacks MDRD (S/P/Bld) [Vol rate/Area] mL/min/1.73 m2 Normal >=59mL/min/ 1.73 m2 [facility] Chem S Glucose [Mass/Vol] 107 mg/dL Normal 55 - 199 mg/dL [facility] Remisol Potassium [Moles/Vol] 3.8 mmol/L Normal 3.5 - 5.3 mmol/L [facility] Remisol Sodium [Moles/Vol] 136 mmol/L Normal 135 - 145 mmol/L [facility] Remisol Urea nitrogen [Mass/Vol] 17 mg/dL Normal 5 - 21 mg/dL [facility] Remisol Urea nitrogen/Creatinine [Mass ratio] 24 mg/mg High 10 - 20 [facility] Remisol Laboratory - Chemistry and C hemistry - challengeOrdered By: SYSTEM SYSTEM on 09-29-2022 CO2 [Moles/Vol] 28 mmol/L Normal 21 - 31 mmol/L [facility] and Cell countsOrdered By: Leonid Leiva on 09-29-2022 HbA1c (Bld) [Mass fraction] 5.8 % Normal <=5.9% [facility] ChemAutoSS No Panel Informationon 09-29 11 {mEq/L} Normal 6-16 [facility] Work Phone: 101 mmol/L Normal 101-111 [facility] k 600 DO Work Phone: 3.8 mmol/L Normal 3.5-5.3 [facility] Work Phone: 136 mmol/L Normal 135-145 [facility] k 600 DO Work Phone: 8.9 mg/dL Normal 8.9-11.1 [facility] Work Phone: 24 {No_Units} above high threshold 10-20 [facility] Anthony harris Zady DO Work Phone: [phone] 0.7 mg/dL Normal 0.5-1.3 [facility] Anthony Bean DO Work Phone: [phone] 17 mg/dL Normal 5-21 [facility] Center[facility] Zady DO Work Phone: [phone] 107 mg/dL Normal 55-199 [facility] Anthony Bean DO Work Phone: [phone] Comment on above: If this glucose resu lt represents a fasting glucose, interpretation should refer to the following reference range: 55-99 mg/dL >60 Normal >=59 [facility] Anthony harris Zady DO Work Phone: Comment on above: eGFR is race adjuste d. AA=. Chronic kidney disea se could be indicated at eGFR's of less than 60 mL/min/1.73m2. Kidney failure is indicated at less than 15 mL/min/1.73m2. Falls Screening (Age 18+)on 09-28-2022 Fall risk assessment a) No falls within the last year [facility] Anthony Styky DO Work Phone: Office Visit (Cardiology)on 09-28-2022 Follow-up visit Diagnoses/Problems Assessed Essential hypertension (401.9) (I10) Morbid obesity with BMI of 40.0-44.9, adult (278.01,V85.41) (E66.01,Z68.41) Orders Essential hypertension, Hyperlipidemia, Morbid obesity with BMI of 40.0-44.9, adult, Screening for diabetes mellitus Hemoglobin A1C; Status:Active - Retrospective Authorization; Requested for:[id number]; Essential hypertension, Non-ischemic cardiomyopathy Basic Metabolic Panel; Status:Active - Retrospective Authorization; Requested for:[id number]; Hyperlipidemia, Screening for diabetes mellitus Glucose, Fasting; Status:Active - Retrospective Authorization; Requested for:[id number]; Chief Complaint PHU LOPEZ is being seen [...] DAILY. Multi-Vitamin Oral TabletTAKE 1 TABLET DAILY. [place]-3 CAP[place]KE DIRECTED. 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 He reports no symptoms of dyspnea [...] has been very compliant Delores Ac MD, [facility] Surgical History Problems History of Complete colonoscopy [...] DAILY. Multi-Vitamin Oral TabletTAKE 1 TABLET DAILY. [place]-3 CAPSTAKE DIRECTED. PARoxetine HCl - 20 MG [...] Recorded: 10Sep2022 10:02AM Heart Rate88, L Radial Fnzxkgwk444, RUE, Sitting Hmieamers50, RUE, Sitting Height5 ft 10 in Mjrjbr951 lb BMI Yoxzowbqau20.32 kg/m2 BSA Calculated2.44 Tobacco Useb) No PHQ-2 #1. Over the last 2 weeks have you felt down, depressed or hopeless? (If yes, answer PHQ-9 below)No PHQ-2 #2. Over the last 2 weeks have you felt little i (more content not included)... Normal [employer] Tobacco Screening.on 023 Adult depression screening assessment No [facility] [employer] DO Work Phone: Fall risk assessment a) No falls within the last year [facility] [employer] DO Work Phone: Tobacco use status CP b) No M [facility] [employer] DO Work Phone: Chay 04-27-2022 L -- ---- Specimen: [id number] Received: 04/27/22 Status: HALLIE Washburn Num: [id number] Spec Type: Surgical Subm Dr: Luiz Morrison MD Tissues: A Prostate - Tur (PROSTATE TURP) Procedures: LISSETH Stain/8, Gross/Micro L4 ---- Age/ Patient Sex Location Account Attending Physician ---- Phu Lopez 67/M OR [id number] Luiz Morrison MD ---- SPEC NUM: [id number] RECD: 04/27/22 STATUS: HALLIE WASHBURN NUM: [id number] CHAIM: 04/27/221033 [facility] DR: Luiz Morrison MD ENTERED: 04/27/[address]: TERRY TYPE: Surgical DEPT: S ORDERED: HE Stain/8, Gross/Micro L4 ORDERED: HE Stain/8, Gross/Micro L4 Supplemental Report Addendum 1 Entered: 05/03/22 PIN cocktail immunohistochemical study has been performed on block A1. No definite evidence of malignancy identified on the area of concern. [id number] Addendum Signed (signature on file) Landon Perez [...] result will follow supplement report. ---- Specimen: [id number] Received: 04/27/22 Status: HALLIE Washburn Num: [id number] Spec Type: Surgical Subm Dr: Luiz Morrison MD Tissues: A Prostate - Tur (PROSTATE TURP) Procedures: HE Stain/8, Gross/Micro L4 ---- Patient: Phu Lopez [id number] (Continued) ---- Specimen: [id number] Received: 04/27/22 (Continued) Signed (signature on file) Casa Desai MD (Michelle) 04/30/22 1044 ---- Specimen: [id number] Received: 04/27/22 Status: HALLIE Washburn Num: [id number] Spec Type: Surgical Subm Dr: Luiz Morrison MD Tissues: A Prostate - Tur (PROSTATE TURP) Procedures: HE Stain/8, Gross/Micro L4 ---- Patient: Phu Lopez [id number] (Continued) ---- Specimen: [id number] Received: 04/27/22 (Continued) Clinical Information BPH with obstruction Gross Description Received in formalin labeled with the patient's name, number and prostate is a 12 g, 6.5 x 5.0 x 2.5 cm aggregate of mooney-campuzano rubbery tissue fragments.. Entirely submitted in nine cassettes labeled A1-A9. Microscopic Description Nine glass slides with H E stained material have been examined. Pathologist interpretation was performed at [facility]. The microscopic findings support the above pathologic diagnosis. CPT Codes 10097 ---- ---- Specimen: [id number] Received: 04/27/22120 Status: HALLIE Washburn Num: [id number] Spec Type: Surgical Subm Dr: Luiz Morrison MD Tissues: A Prostate - Tur (PROSTATE TURP) Procedures: LISSETH Stain/8, Gross/Micro L4 ---- Patient: Phu Lopez [id number] (Continued) ---- Signed (signature on file) Casa Desai MD (Michelle) 04/30/22 1044 Normal [facility]19 [facility] SARS-CoV-2 (COVID-19) RNA MARY+probe Ql (Unsp spec) Negative Normal Negative [facility] Comment on above: Order Comment: Healt hcare Worker?: N Result Comment: Testing for SARS-CoV-2 by RT-PCR This test was developed and its performance characteristics determined by [employer]) and validated at the [facility]. This test has not been FDA [...] is terminated or revoked sooner. PERFORMED BY: [place] [address] PATHOLOGIST MEDICAL SALES SPECIALIST TOI BOWER M.D. Performed By: #### C OVID 19 [facility] #### [address] COVID-19 Positive/NegativeOr dered By: Luiz Morrison on 04-23-2022 SARS-CoV-2 (COVID-19) N gene MARY+probe Ql (Resp) Negative Negative [facility] Comment on above: Testing for SARS-CoV -2 by RT-PCR This test was developed and its performance characteristics determined by [employer] ([employer]) and validated at the [facility]. This test has not been FDA [...] aPTT Coag (PPP) [Time] 29.4 s 25.1-36.[address] [facility] Basic Metabolic Panelon Anion gap [Moles/Vol] 13.0 mmol/L Normal 6.0-15.[address] [facility] Comment on above: Performed By: #### P T, PTT, CBC, BMP #### [address] Calcium [Mass/Vol] 9.4 mg/dL Normal 8.2-10.2 [facility] Comment on above: Result Comment: PERF ORMED BY: [place] [address] PATHOLOGIST MEDICAL SALES SPECIALIST TOI BOWER M.D. Performed By: #### P T, PTT, CBC, BMP #### [address] Chloride [Moles/Vol] 100 mmol/L Normal 95-114 [facility] Comment on above: Performed By: #### P T, PTT, CBC, BMP #### [facility] [address] [place] [address] CO2 [Moles/Vol] 26.6 mmol/L Normal 22.0-30.0 [facility] Comment on above: Performed By: #### P T, PTT, CBC, BMP #### [facility] [address] [place] [address] Creatinine [Mass/Vol] 0.60 mg/dL Low 0.64-1.27 [facility] Comment on above: Performed By: #### P T, PTT, CBC, BMP #### [facility] [address] [place] [address] [place] Estimated GFR ( Pilar > 60 Normal [facility] Comment on above: Result Comment: GFR estimated reference range: According to KDOQI guidelines, <60 ml/min/1.73m2 is sufficient to diagnose a patient with chronic kidney disease. Performed By: #### P T, PTT, CBC, BMP #### [facility] [address] Estimated GFR (Non- Am > 60 [facility] Comment on above: Performed By: #### P T, PTT, CBC, BMP #### [facility] [address] Glucose [Mass/Vol] 112 mg/dL High 70-100 [facility] Comment on above: Result Comment: [place] Glucose Reference Range is dependent on time and content of last meal. Glucose of more than 200 mg/dL in a nonstressed, ambulatory subject supports the diagnosis of Diabetes Mellitus. ADA recommended reference range Performed By: #### P T, PTT, CBC, BMP #### [address] Potassium [Moles/Vol] 3.6 mmol/L Normal 3.5-5.1 [facility] Comment on above: Performed By: #### P T, PTT, CBC, BMP #### [address] Sodium [Moles/Vol] 136 mmol/L Normal 136-146 [facility] Comment on above: Performed By: #### P T, PTT, CBC, BMP #### [address] Urea nitrogen [Mass/Vol] 7 mg/dL Low 9-23 [facility] Comment on above: Performed By: #### P T, PTT, CBC, BMP #### [place] [address] [place] Basophils Auto (Bld) [#/Vol] Ordered By: Luiz Morrison on 04-13-2022 Basophils (Bld) [#/Vol] 0.0 10*3/uL 0.0-0.2 [facility] Basophils/100 WBC Auto (Bld) Ordered By: Luiz Morrison on 04-13-2022 Basophils/100 WBC (Bld) 0.5 % . [facility] Blood hemoglobin measurement (mass/volume)Ordered By: Luiz Tamiko on 04-13-2022 Hemoglobin (Bld) [Mass/Vol] 14.4 g/dL 13.0-17.0 [facility] Blood leukocytes automated c ount (number/volume)Ordered By: Luiz Morrison on 04-13-2022 WBC (Bld) [#/Vol] 7.0 10*3/uL 4.5-11.0 [facility] Complete Blood Count Auto Di ffon 04-13-2022 Basophils (Bld) [#/Vol] 0.0 10*3/uL Normal 0.0-0.2 [facility] Comment on above: Result Comment: PERF ORMED BY: [place] [address] PATHOLOGIST MEDICAL SALES SPECIALIST TOI BOWER M.D. Performed By: #### P T, PTT, CBC, BMP #### [facility] [address] Basophils/100 WBC (Bld) 0.5 % Normal . [facility] Comment on above: Performed By: #### P T, PTT, CBC, BMP #### [facility] [address] [place] [address] [place] Eosinophils (Bld) [#/Vol] 0.2 10*3/uL Normal 0.0-0.45 [facility] Comment on above: Performed By: #### P T, PTT, CBC, BMP #### [facility] [address] [place] [address] [place] Eosinophils/100 WBC (Bld) 2.4 % Normal . [facility] Comment on above: Performed By: #### P T, PTT, CBC, BMP #### [facility] [address] [place] [address] [place] Erythrocyte distribution width (RBC) [Ratio] 13.3 % Normal 12.0-14.8 [facility] Comment on above: Performed By: #### P T, PTT, CBC, BMP #### [facility] [address] Hematocrit (Bld) [Volume fraction] 42.6 % Normal 38.8-50.0 [facility] Comment on above: Performed By: #### P T, PTT, CBC, BMP #### [address] Hemoglobin (Bld) [Mass/Vol] 14.4 g/dL Normal 13.0-17.0 [facility] Comment on above: Performed By: #### P T, PTT, CBC, BMP #### [address] Lymphocytes (Bld) [#/Vol] 1.2 10*3/uL Normal 1.00-4.8 [facility] Comment on above: Performed By: #### P T, PTT, CBC, BMP #### [address] Lymphocytes/100 WBC (Bld) 17.7 % Normal . [facility] Comment on above: Performed By: #### P T, PTT, CBC, BMP #### [address] MCH (RBC) [Entitic mass] 30.6 pg Normal 27.5-35.2 [facility] Comment on above: Performed By: #### P T, PTT, CBC, BMP #### [address] MCV (RBC) [Entitic vol] 90.7 fL Normal 83.5-101 [facility] Comment on above: Performed By: #### P T, PTT, CBC, BMP #### [address] Mean Corpuscular HGB Conc 33.8 g/dL Normal 32.5-35.6 [facility] Comment on above: Performed By: #### P T, PTT, CBC, BMP #### [address] Monocytes (Bld) [#/Vol] 0.7 10*3/uL Normal 0.0-0.8 [facility] Comment on above: Performed By: #### P T, PTT, CBC, BMP #### [address] Monocytes/100 WBC (Bld) 9.7 % Normal . [facility] Comment on above: Performed By: #### P T, PTT, CBC, BMP #### [address] Neutrophils (Bld) [#/Vol] 4.9 10*3/uL Normal 1.8-7.7 [facility] Comment on above: Performed By: #### P T, PTT, CBC, BMP #### [address] Neutrophils/100 WBC (Bld) 69.7 % Normal . [facility] Comment on above: Performed By: #### P T, PTT, CBC, BMP #### [address] Nucleated RBC/100 WBC (Bld) [Ratio] 0.0 % Normal 0-0.5 [facility] Comment on above: Performed By: #### P T, PTT, CBC, BMP #### [address] Platelet mean volume (Bld) [Entitic vol] 9.2 fL Normal 6.6-10.1 [facility] Comment on above: Performed By: #### P T, PTT, CBC, BMP #### [address] Platelets (Bld) [#/Vol] 265 10*3/uL Normal 150-450 [facility] Comment on above: Performed By: #### P T, PTT, CBC, BMP #### [address] RBC (Bld) [#/Vol] 4.70 10*6/uL Normal 3.90-5.60 [facility] Comment on above: Performed By: #### P T, PTT, CBC, BMP #### [facility] [address] WBC (Bld) [#/Vol] 7.0 10*3/uL Normal 4.5-11.0 [facility] Comment on above: Performed By: #### P T, PTT, CBC, BMP #### [facility] [address] [place] [address] Creatinine and Glomerular fi ltration rate.predicted panel (S/P/Bld)Ordered By: Luiz Morrison on 04-13-2022 Creatinine [Mass/Vol] 0.60 mg/dL 0.64-1.27 [facility] ECG 12 lead ECGon 04-13-2022 ECG 12 lead ECG [facility] [place] [place] [address] Electrocardiograph Report Signed Patient: Phu Lopez MR#: [id number] : 1955 Acct:[id number] Age/Sex: 67 / M ADM Date: 04/13/22 Loc: Room: Type: [facility] Attending Dr: Luiz Morrison MD Ordering Provider: Liuz Morrison MD Date of Service: 04/13/2201/27/715 ECG/ECG [...] Signed By Roxie Gusman MD 1431 Normal [facility] Eosinophils Auto (Bld) [#/Vo l]Ordered By: Luiz Morrison on 04-13-2022 Eosinophils (Bld) [#/Vol] 0.2 10*3/uL 0.0-0.45 [facility] Eosinophils/100 WBC Auto (Bl d)Ordered By: Luiz Morrison on 04-13-2022 Eosinophils/100 WBC (Bld) 2.4 % . [facility] Erythrocyte distribution wid th Auto (RBC) [Ratio]Ordered By: Luiz Morrison on 04-13-2022 Erythrocyte distribution width (RBC) [Ratio] 13.3 % 12.0-14.8 [facility] Estimated glomerular filtrat ion rate (GFR) non- AmericanOrdered By: Luiz Morrison on 04-13-2022 GFR/1.73 sq M.predicted among non-blacks MDRD (S/P/Bld) [Vol rate/Area] > 60 mL/Min [facility] Hematocrit Auto (Bld) [Volum e fraction]Ordered By: Luiz Morrison on 04-13-2022 Hematocrit (Bld) [Volume fraction] 42.6 % 38.8-50.0 [facility] Laboratory - CoagulationOrde red By: Luiz Morrison on 04-13-2022 PT Coag (PPP) [Time] 10.8 s 9.0-12.9 [facility] Laboratory - Hematology and Cell countsOrdered By: Luiz Morrison on 04-13-2022 Nucleated RBC/100 WBC (Bld) [Ratio] 0.0 % 0-0.5 [facility] Lymphocytes Auto (Bld) [#/Vo l]Ordered By: Luiz Morrison on 04-13-2022 Lymphocytes (Bld) [#/Vol] 1.2 10*3/uL 1.00-4.8 [facility] Lymphocytes/100 WBC Auto (Bl d)Ordered By: Luiz Morrison on 04-13-2022 Lymphocytes/100 WBC (Bld) 17.7 % . [facility] MCH Auto (RBC) [Entitic mass ]Ordered By: Luiz Morrison on 04-13-2022 MCH (RBC) [Entitic mass] 30.6 pg 27.5-35.2 [facility] MCHC Auto (RBC) [Mass/Vol]Or dered By: Luiz Morrison on 04-13-2022 MCHC (RBC) [Mass/Vol] 33.8 g/dL 32.5-35.6 [facility] MCV Auto (RBC) [Entitic vol] Ordered By: Luiz Morrison on 04-13-2022 MCV (RBC) [Entitic vol] 90.7 fL 83.5-101 [facility] Monocytes Auto (Bld) [#/Vol] Ordered By: Luiz Morrison on 04-13-2022 Monocytes (Bld) [#/Vol] 0.7 10*3/uL 0.0-0.8 [facility] Monocytes/100 WBC Auto (Bld) Ordered By: Luiz Morrison on 04-13-2022 Monocytes/100 WBC (Bld) 9.7 % . [facility] Neutrophils Auto (Bld) [#/Vo l]Ordered By: Luiz Morrison on 04-13-2022 Neutrophils (Bld) [#/Vol] 4.9 10*3/uL 1.8-7.7 [facility] Neutrophils/100 WBC Auto (Bl d)Ordered By: Luiz Morrison on 04-13-2022 Neutrophils/100 WBC (Bld) 69.7 % . [facility] No Panel InformationOrdered By: Luiz Morrison on 04-13-2022 Estimated GFR () > 60 mL/Min [facility] Comment on above: GFR estimated refere nce range: According to KDOQI guidelines, <60 ml/min/1.73m2 is sufficient to diagnose a patient with chronic kidney disease. Pharmacy Creatinine Clearance (Chem N/A [facility] Partial Thromboplastin Timeo n 04-13-2022 aPTT Coag (Bld) [Time] 29.4 s Normal 25.1-36.[address] [facility] Comment on above: Result Comment: PERF ORMED BY: [place] [address] PATHOLOGIST MEDICAL SALES SPECIALIST TOI BOWER M.D. Performed By: #### P T, PTT, CBC, BMP #### [address] Platelet mean volume Auto (B ld) [Entitic vol]Ordered By: Luiz Morrison on 04-13-2022 Platelet mean volume (Bld) [Entitic vol] 9.2 fL 6.6-10.1 [facility] Platelet poor plasma interna tional normalized ratio (INR) by coagulation assay (relatOrdered By: Luiz Morrison on 04-13-2022 INR Coag (PPP) [Relative time] 1.0 {INR} [facility] Comment on above: INR Therapeutic Rang [...] 04-13-2022 Platelets (Bld) [#/Vol] 265 10*3/uL 150-450 [facility] Prothrombin Time INRon 04-13 INR Coag (PPP) [Relative time] 1.0 {INR} Normal [facility] Comment on above: Result Comment: INR [...] #### P T, PTT, CBC, BMP #### [facility] [address] PT Coag (PPP) [Time] 10.8 s Normal 9.0-12.9 [facility] Comment on above: Performed By: #### P T, PTT, CBC, BMP #### [facility] [address] RBC Auto (Bld) [#/Vol]Ordere d By: Luiz Morrison on 04-13-2022 RBC (Bld) [#/Vol] 4.70 10*6/uL 3.90-5.60 [facility] Serum or plasma anion gap de terminationOrdered By: Luiz Morrison on 04-13-2022 Anion gap [Moles/Vol] 13.0 mmol/L 6.0-15.0 [facility] Serum or plasma calcium anne urement (mass/volume)Ordered By: Luiz Morrison on 04-13-2022 Calcium [Mass/Vol] 9.4 mg/dL 8.2-10.2 [facility] Serum or plasma chloride neo surement (moles/volume)Ordered By: Luiz Morrison on 04-13-2022 Chloride [Moles/Vol] 100 mmol/L 95-114 [facility] Serum or plasma glucose anne urement (mass/volume)Ordered By: Luiz Morrison on 04-13-2022 Glucose [Mass/Vol] 112 mg/dL 70-100 [facility] Comment on above: ADA recommended refe rence range Random Glucose Reference Range is dependent on time and content of last meal. Glucose of more than 200 mg/dL in a nonstressed, ambulatory subject supports the diagnosis of Diabetes Mellitus. Serum or plasma potassium me asurement (moles/volume)Ordered By: Luiz Morrison on 04-13-2022 Potassium [Moles/Vol] 3.6 mmol/L 3.5-5.1 [facility] Serum or plasma sodium measu rement (moles/volume)Ordered By: Luiz Morrison on 04-13-2022 Sodium [Moles/Vol] 136 mmol/L 136-146 [facility] Serum or plasma total carbon dioxide measurement (moles/volume)Ordered By: Luiz Morrison on 04-13-2022 CO2 [Moles/Vol] 26.6 mmol/L 22.0-30.0 [facility] Serum or plasma urea nitroge n measurement (mass/volume)Ordered By: Luiz Morrison on 04-13-2022 Urea nitrogen [Mass/Vol] 7 mg/dL 9-23 [facility] CHEMISTRYOrdered By: Gabriel rendon on 04-01-2022 HbA1c (Bld) [Mass fraction] 5.3 % Normal <=5.9% [facility] ChemAutoSS Creatinine (Bld) [Mass/Vol]O rdered By: Luiz Morrison on 01-21-2022 Creatinine [Mass/Vol] 0.8 mg/dL 0.6-1.3 [facility] Comment on above: ER/ESD physician is notified/shown all ISTAT results. Critical values may be confirmed by laboratory testing if deemed necessary by ER attending doctor. No Panel InformationOrdered By: Luiz Morrison on 01-21-2022 POC Estimated GFR > 60 [facility] Comment on above: GFR estimated refere nce range: According to KDOQI guidelines, <60 ml/min/1.73m2 is sufficient to diagnose a patient with chronic kidney disease. POC Estimated GFR Non- Amer > 60 [facility] CHEMISTRYOrdered By: SYSTEM SYSTEM on 12-22-2021 [...] rate/Area] mL/min/1.73 m2 Normal >=59mL/min/ 1.73 m2 [facility] Chem S Globulin (S) [Mass/Vol] 3.8 g/dL [...] 89.0 fL Normal 80.0 - 100.0 fL [facility] HemeAutoSS Platelet mean volume (Bld) [Entitic vol] 8.6 fL Normal 6.4 - 10.8 fL [facility] HemeAutoSS Platelets (Bld) [#/Vol] 270.0 E9/L Normal 150. 0 - 500.0 E9/L [facility] HemeAutoSS RBC (Bld) [#/Vol] 4.4 E12/L Normal 4.3 - 5.9 E12/L [facility] HemeAutoSS WBC corrected for nucl RBC Auto (Bld) [#/Vol] 8.4 E9/L Normal 4.0 - 11.0 E9/L [facility] HemeAutoSS CHEMISTRYOrdered By: SYSTEM SYSTEM on 11-19-2021 Creatinine [Mass/Vol] 0.7 mg/dL Normal 0.5 - 1.3 mg/dL [facility] Remisol GFR/1.73 sq M.predicted among blacks MDRD (S/P/Bld) [Vol rate/Area] mL/min/1.73 m2 Normal >=59mL/min/ 1.73 m2 [facility] Chem S GFR/1.73 sq M.predicted among non-blacks MDRD (S/P/Bld) [Vol rate/Area] mL/min/1.73 m2 Normal >=59mL/min/ 1.73 m2 [facility] Chem S Tobacco Screening.on 022 Fall risk assessment a) No falls within the last year [facility] k 600 DO Work Phone: Tobacco use status [facility] b) No M [facility] k 600 DO Work Phone: CORONAVIRUS 2019 BY PCRon SARS-CoV-2 (COVID-19) RNA MARY+probe Ql (Unsp spec) Not detected Normal Not Detected [facility] Comment on above: Result Comment: . This [...] this test method. Fact sheet for providers: https://www.fda.gov/media/523351/download Fact sheet for patients: https://www.fda.gov/media/984047/download This test has received FDA Emergency Use Authorization [EUA] and has been verified by [facility] ([facility]). This test is only authorized for the duration of time that circumstances exist to justify the authorization of the emergency use of in vitro diagnostic tests for the detection of SARS-CoV-2 virus and/or diagnosis of COVID-19 infection under section 564(b)(1) of the Act, 21 U.S.C. 360bbb-3(b)(1), unless the authorization is terminated or revoked sooner. [facility] is certified under CLIA-88 as qualified to perform high complexity testing. Testing is performed in the [facility] laboratories located at [address] [place] [address]. Performed By: #### C OV19 #### [address] [place] [address] Covid 19 Resultson 1 SARS-CoV-2 (COVID-19) RNA [...] may also be contacted by the [facility] to see if any of your [...] or Naproxen (Aleve) can also be used. Kasm-ktg-oqzvvoh cough and cold medicines can be used according to the instructions on the package. Some nlfo-myq-ihbrthd medicines also contain acetaminophen. Make sure you [...] water are not available, use alcohol-based hand rubber compounder formulator. Avoid touching your eyes, nose, and mouth [...] for 24 matias (more content not included)... [facility] CORONAVIRUS 2019 BY PCRon DATE OF SYMPTOM ONSET [YYYYMMDD]? [id number] [facility] Comment on above: Performed By: #### C OV19 #### [facility] [address] [place] [address] Lab Specimen Source Nasal, Nasopharyngeal [facility] Comment on above: Performed By: #### C OV19 #### [facility] [address] [place] [address] Provider Note - ED v2on 08 Provider [...] SIGNS: T PRBP SpO2O2(LPM) %FiO2 Method 10-Mar-2021 13:09:[id number] 95 PHYSICAL EXAM CONSTITUTIONAL: Appearance: well appearing [...] with instruction (more content not included)... Normal [facility] CORONAVIRUS 2019 BY PCRon SARS-CoV-2 (COVID-19) RNA MARY+probe Ql (Unsp spec) Not detected Normal Not Detected [facility] Comment on above: Result Comment: . This [...] patient management decisions. Fact sheet for providers: https://www.fda.gov/media/799582/download Fact sheet for patients: https://www.fda.gov/media/711172/download This test has received FDA Emergency Use Authorization (EUA) and has been verified by [facility] ([facility]). This test is only authorized for the duration of time that circumstances exist to justify the authorization of the emergency use of in vitro diagnostic tests for the detection of SARS-CoV-2 virus and/or diagnosis of COVID-19 infection under section 564(b)(1) of the Act, 21 U.S.C. 360bbb-3(b)(1), unless the authorization is terminated or revoked sooner. [facility] is certified under CLIA-88 as qualified to perform high complexity testing. Testing is performed in the [facility] laboratories located at [address] [place] [address]. Performed By: #### C OV19 #### [address] [place] [address] Covid 19 Resultson 1 SARS-CoV-2 (COVID-19) RNA [...] may also be contacted by the [facility] to see if any of your [...] or Naproxen (Aleve) can also be used. Dawk-zzn-bchaudz cough and cold medicines can be used according to the instructions on the package. Some wpsh-srm-ezjmquj medicines also contain acetaminophen. Make sure you [...] water are not available, use alcohol-based hand rubber compounder formulator. Avoid touching your eyes, nose, and mouth [...] like ibuprofen (Motrin) (more content not included)... [facility] CORONAVIRUS 2019 BY PCRon DATE OF SYMPTOM ONSET [YYYYMMDD]? [id number] [facility] Comment on above: Performed By: #### C OV19 #### [facility] [address] [place] [address] Lab Specimen Source Nasal, Nasopharyngeal Normal [facility] Comment on above: Performed By: #### C OV19 #### [facility] [address] [address] Provider Note - ED v2on Provider Note [...] and symptoms. Symptoms have been refractory to ofho-shy-emvnuut medications.. Triage Information: Most recent Vital Sign [...] Updated: 12-Sep-2020 09:08 by Emile Michelle (PAC) [facility] Provider Note - ED v2on 06-10 Provider [...] SIGNS: T PRBP SpO2O2(LPM) %FiO2 Method 07-Jul-2020 13:05:[id number]/ 69 97 PHYSICAL EXAM CONSTITUTIONAL: Appearance: well [...] exam a (more content not included)... Normal [facility] URINE CULTURE,BACTERIALon URINE CULTURE,BACTERIAL PATIENT: JONO LOPEZ LOCATION: [facility]#: [id number] : 57 AGE: SEX: M ORDERED BY: CHRISS MARIE SOURCE: URINE COLLECTED: 07/07/20 14:07 ANTIBIOTICS AT CHAIM.: RECEIVED : 07/07/20 19:19 SITE: R E S U L T S URINE CULTURE,BACTERIAL FINAL 07/08/20 12:57 NO SIGNIFICANT GROWTH. [facility] Comment on above: Performed By: #### U [facility] #### [facility] [address] [address] OCT MACULA CIRRUS OU (BOTH E YES) [facility] Vital Signs Date Time Vital Sign Value Performing Clinician Facility 06-04-2024 07:58-0400 Body height 177.8 cm Adam Jack DPM FACFAS Work Phone: [facility] 06-04-2024 07:58-0400 Body mass index (BMI) [Ratio] 42.62 kg/m2 Adam Jack DPM FACFAS Work Phone: [facility] 06-04-2024 07:58-0400 Body weight 134.72 kg Adam Jack DPM FACFAS Work Phone: [facility] 06-04-2024 07:58-0400 Diastolic blood pressure 71 mm[Hg] Adam Jack DPM FACFAS Work Phone: [facility] 06-04-2024 07:58-0400 Heart rate 74 /min Adam Jack DPM FACFAS Work Phone: [facility] 06-04-2024 07:58-0400 Systolic blood pressure 132 mm[Hg] Adam Jack DPM FACFAS Work Phone: [facility] 05-10-2024 09:24-0400 Body height 177.8 cm Liliana Waller MD Work Phone: [facility] 05-10-2024 09:24-0400 Body mass index (BMI) [Ratio] 42.62 kg/m2 Liliana Waller MD Work Phone: [facility] 05-10-2024 09:24-0400 Body temperature 98.2 [degF] Liliana Waller MD Work Phone: [facility] 05-10-2024 09:24-0400 Body weight 134.72 kg Liliana Waller MD Work Phone: [facility] 05-10-2024 09:24-0400 Diastolic blood pressure 68 mm[Hg] Liliana Waller MD Work Phone: [facility] 05-10-2024 09:24-0400 Heart rate 67 /min Liliana Waller MD Work Phone: [facility] 05-10-2024 09:24-0400 SaO2% (BldA) [Mass fraction] 97 % Liliana Waller MD Work Phone: [facility] 05-10-2024 09:24-0400 Systolic blood pressure 130 mm[Hg] Liliana Waller MD Work Phone: [facility] 05-07-2024 13:42-0400 Body height 177.8 cm [facility] 05-07-2024 13:42-0400 Body mass index (BMI) [Ratio] 41.7 kg/m2 [facility] 05-07-2024 13:42-0400 Body weight 131.99 kg [facility] 05-07-2024 13:42-0400 Diastolic blood pressure 69 mm[Hg] [facility] 05-07-2024 13:42-0400 Heart rate 78 /min [facility] 05-07-2024 13:42-0400 SaO2% (BldA) [Mass fraction] 96 % [facility] 05-07-2024 13:42-0400 Systolic blood pressure 148 mm[Hg] [facility] 03-12-2024 13:59-0400 Body height 177.8 cm [facility] 03-12-2024 13:59-0400 Body mass index (BMI) [Ratio] 40.7 kg/m2 [facility] 03-12-2024 13:59-0400 Body weight 128.82 kg [facility] 03-12-2024 13:59-0400 Diastolic blood pressure 69 mm[Hg] [facility] 03-12-2024 13:59-0400 Heart rate 75 /min [facility] 03-12-2024 13:59-0400 SaO2% (BldA) [Mass fraction] 94 % [facility] 03-12-2024 13:59-0400 Systolic blood pressure 140 mm[Hg] [facility] 09-30-2023 08:46-0500 Body height 177.8 cm Delores Ac MD Work Phone: [facility] 09-30-2023 08:46-0500 Body mass index (BMI) [Ratio] 42.04 kg/m2 Delores Ac MD Work Phone: [facility] 09-30-2023 08:46-0500 Body weight 132.9 kg Delores Ac MD Work Phone: [facility] 09-30-2023 08:46-0500 Diastolic blood pressure 60 mm[Hg] Delores Ac MD Work Phone: [facility] 09-30-2023 08:46-0500 Heart rate 76 /min Delores Ac MD Work Phone: [facility] 09-30-2023 08:46-0500 Systolic blood pressure 138 mm[Hg] Delores Ac MD Work Phone: [facility] 06-15-2023 13:25-0500 Diastolic blood pressure 90 mm[Hg] Luiz MORRISON [facility] 06-15-2023 13:25-0500 Mean blood pressure 110 mm[Hg] Luiz MORRISON [facility] 06-15-2023 13:25-0500 Systolic blood pressure 150 mm[Hg] Luiz MORRISON [facility] 06-15-2023 13:20-0500 Blood Pressure Location Luiz MORRISON [facility] 06-15-2023 13:20-0500 Diastolic blood pressure 94 mm[Hg] Luiz MORRISON [facility] 06-15-2023 13:20-0500 Heart rate 83 /min Luiz MORRISON [facility] 06-15-2023 13:20-0500 Systolic blood pressure 150 mm[Hg] Luiz OMRRISON [facility] 02-21-2023 13:30-0400 Body height 172.72 cm Burak Rangel Other [facility] Other 02-21-2023 13:30-0400 Body mass index (BMI) [Ratio] 44.55 kg/m2 Burak Rangel Other [facility] Other 02-21-2023 13:30-0400 Body weight 132.9 kg Burak Rangel Other [facility] Other 02-21-2023 13:30-0400 Diastolic blood pressure 71 mm[Hg] Burak Rangel Other [facility] Other 02-21-2023 13:30-0400 SaO2% (BldA) [Mass fraction] 96 % Burak Rangel Other [facility] Other 02-21-2023 13:30-0400 Systolic blood pressure 167 mm[Hg] Kamal Chaban Other [facility] Other 11-03-2022 15:48-0400 Blood Pressure Location Luiz MORRISON [facility] 11-03-2022 15:48-0400 Diastolic blood pressure 76 mm[Hg] Luiz MORRISON [facility] 11-03-2022 15:48-0400 Heart rate 76 /min Luiz MORRISON [facility] 11-03-2022 15:48-0400 Systolic blood pressure 138 mm[Hg] Luiz MORRISON [facility] 09-28-2022 12:04-0500 Diastolic blood pressure 60 mm[Hg] Terri Allsop Work Phone: [facility] 600 DO Work Phone: 09-28-2022 12:04-0500 Systolic blood pressure 118 mm[Hg] Terri Allsop Work Phone: [facility] 600 DO Work Phone: 09-28-2022 11:58-0500 Diastolic blood pressure 42 mm[Hg] Terri Allsop Work Phone: [facility] 600 DO Work Phone: 09-28-2022 11:58-0500 Systolic blood pressure 118 mm[Hg] Terri Allsop Work Phone: [facility] 600 DO Work Phone: 09-28-2022 11:57-0500 Body height 177.8 cm Terri Allsop Work Phone: [facility] 600 DO Work Phone: 09-28-2022 11:57-0500 Body mass index (BMI) [Ratio] 40.89 kg/m2 Terri Allsop Work Phone: [facility] 600 DO Work Phone: 09-28-2022 11:57-0500 Body surface area Derived from formula 2.43 m2 Terri Allsop Work Phone: [facility] 600 DO Work Phone: 09-28-2022 11:57-0500 Body weight 129.28 kg Terri Allsop Work Phone: [facility] 600 DO Work Phone: 09-28-2022 11:57-0500 Diastolic blood pressure 44 mm[Hg] Terri Allsop Work Phone: [facility] 600 DO Work Phone: 09-28-2022 11:57-0500 Heart rate 80 /min Terri Allsop Work Phone: [facility] 600 DO Work Phone: 09-28-2022 11:57-0500 Systolic blood pressure 120 mm[Hg] Terri Allsop Work Phone: [facility] 600 DO Work Phone: 09-10-2022 10:02-0500 Body height 177.8 cm Terri Allsop Work Phone: [facility] 600 DO Work Phone: 09-10-2022 10:02-0500 Body mass index (BMI) [Ratio] 41.32 kg/m2 Terri Allsop Work Phone: [facility] 600 DO Work Phone: 09-10-2022 10:02-0500 Body surface area Derived from formula 2.44 m2 Terri Powellsop Work Phone: [facility] 600 DO Work Phone: 09-10-2022 10:02-0500 Body weight 130.64 kg Terri Powellsop Work Phone: [facility] 600 DO Work Phone: 09-10-2022 10:02-0500 Diastolic blood pressure 70 mm[Hg] Terri Powellsop Work Phone: [facility] 600 DO Work Phone: 09-10-2022 10:02-0500 Heart rate 88 /min Terri Powellsop Work Phone: [facility] 600 DO Work Phone: 09-10-2022 10:02-0500 Systolic blood pressure 162 mm[Hg] Terri Powellsop Work Phone: [facility] 600 DO Work Phone: 06-24-2022 13:10-0500 Blood Pressure Location William Oquendocindiandrea [facility] 06-24-2022 13:10-0500 Diastolic blood pressure 87 mm[Hg] William Brsuh [facility] 06-24-2022 13:10-0500 Heart rate 91 /min William Jerecindiy [facility] 06-24-2022 13:10-0500 Respiratory rate 21 /min Willaim Brush [facility] 06-24-2022 13:10-0500 SaO2% (BldA) [Mass fraction] 97 % William Jerecindiy [facility] 06-24-2022 13:10-0500 Systolic blood pressure 152 mm[Hg] William Mourany [facility] 06-24-2022 13:05-0500 Blood Pressure Location William Mourany [facility] 06-24-2022 13:05-0500 Diastolic blood pressure 94 mm[Hg] William Mourany [facility] 06-24-2022 13:05-0500 Heart rate 91 /min William Mourany [facility] 06-24-2022 13:05-0500 Respiratory rate 24 /min William Mourany [facility] 06-24-2022 13:05-0500 SaO2% (BldA) [Mass fraction] 97 % William Mourany [facility] 06-24-2022 13:05-0500 Systolic blood pressure 164 mm[Hg] William Mourany [facility] 06-24-2022 13:00-0500 Heart rate 92 /min William Mourany [facility] 06-24-2022 13:00-0500 Respiratory rate 18 /min William Mourany [facility] 06-24-2022 13:00-0500 SaO2% (BldA) [Mass fraction] 96 % William Mourany [facility] 06-24-2022 13:00-0500 Systolic blood pressure 162 mm[Hg] William Mourany [facility] 06-24-2022 12:40-0500 Body temperature 97.16 [degF] William Mourany [facility] 06-24-2022 12:37-0500 Respiratory rate 20 /min William Mourany [facility] 06-24-2022 12:30-0500 Respiratory rate 20 /min William Oquendocindiandrea [facility] 06-24-2022 12:25-0500 Respiratory rate 20 /min William Oquendojasmeet [facility] 06-24-2022 11:31-0500 Body temperature 97.16 [degF] William Oquendocindiandrea [facility] 05-12-2022 08:06-0400 Blood Pressure Location Luizcaitie MORRISON [facility] 05-12-2022 08:06-0400 Diastolic blood pressure 80 mm[Hg] Luiz MORRISON [facility] 05-12-2022 08:06-0400 Heart rate 80 /min Luiz MORRISON [facility] 05-12-2022 08:06-0400 Respiratory rate 16 /min Luiz MORRISON [facility] 05-12-2022 08:06-0400 Systolic blood pressure 151 mm[Hg] Luiz MORRISON [facility] 04-28-2022 11:54-0400 Body temperature 99.2 [degF] MD Terri Santos Work Phone: [facility] 04-28-2022 11:54-0400 Diastolic blood pressure 91 mm[Hg] MD Terri Santos Work Phone: [facility] 04-28-2022 11:54-0400 Heart rate 92 /min MD Terri Santos Work Phone: [facility] 04-28-2022 11:54-0400 Respiratory rate 18 /min MD Terri Santos Work Phone: [facility] 04-28-2022 11:54-0400 SaO2% (BldA) [Mass fraction] 92 % MD Terri Santos Work Phone: [facility] 04-28-2022 11:54-0400 Systolic blood pressure 173 mm[Hg] MD Terri Santos Work Phone: [facility] 04-28-2022 05:14-0400 Body weight 126.5 kg MD Terri Santos Work Phone: [facility] 04-27-2022 10:48-0400 Inhaled oxygen flow rate 6 L/min MD Terri Santos Work Phone: [facility] 04-27-2022 09:08-0400 Body height 180.34 cm MD Terri Santos Work Phone: [facility] 04-27-2022 09:08-0400 Body mass index (BMI) [Ratio] 37.6 kg/m2 MD Terri Santos Work Phone: [facility] 04-01-2022 10:10-0400 Blood Pressure Location Leonid WHITEHEAD [facility] [place] 04-01-2022 10:10-0400 Diastolic blood pressure 69 mm[Hg] Leonid WHITEHEAD [facility] [place] 04-01-2022 10:10-0400 Heart rate 79 /min Leonid HICKEYL [facility] [place] 04-01-2022 10:10-0400 Respiratory rate 16 /min Leonid HICKEYL [facility] [place] 04-01-2022 10:10-0400 Systolic blood pressure 167 mm[Hg] Leonid WHITEHEAD [facility] [place] 02-22-2022 14:45-0400 Body height 172.72 cm Burak Gaypoli Other [facility] Other 02-22-2022 14:45-0400 Body mass index (BMI) [Ratio] 45.08 kg/m2 Burak Gaypoli Other [facility] Other 02-22-2022 14:45-0400 Body temperature 97.5 [degF] Burak Gaypoli Other [facility] Other 02-22-2022 14:45-0400 Body weight 134.49 kg Burak Gaypoli Other [facility] Other 02-22-2022 14:45-0400 Diastolic blood pressure 75 mm[Hg] Burak Claire Other [facility] Other 02-22-2022 14:45-0400 SaO2% (BldA) [Mass fraction] 96 % Burak Gaypoli Other [facility] Other 02-22-2022 14:45-0400 Systolic blood pressure 148 mm[Hg] Burak Claire Other [facility] Other 12-22-2021 08:15-0400 Blood Pressure Location Luiz MORRISON [facility] [place] 12-22-2021 08:15-0400 Diastolic blood pressure 71 mm[Hg] Luiz MORRISON [facility] [place] 12-22-2021 08:15-0400 Heart rate 74 /min Luizcaitie MORRISON [facility] [place] 12-22-2021 08:15-0400 Systolic blood pressure 139 mm[Hg] Luiz MORRISON [facility] [place] 12-11-2021 08:18-0400 Blood Pressure Location William Oquendocindiandrea [facility] [place] 12-11-2021 08:18-0400 Diastolic blood pressure 77 mm[Hg] [facility] [facility] 12-11-2021 08:18-0400 Heart rate 77 /min [facility] 12-11-2021 08:18-0400 Systolic blood pressure 155 mm[Hg] [facility] 11-04-2021 10:36-0400 Blood Pressure Location Luiz MORRISON [facility] [place] 11-04-2021 10:36-0400 Diastolic blood pressure 78 mm[Hg] Luiz MORRISON [facility] [place] 11-04-2021 10:36-0400 Heart rate 85 /min Luiz MORRISON [facility] [place] 11-04-2021 10:36-0400 Respiratory rate 16 /min Luiz MORRISON [facility] 11-04-2021 10:36-0400 Systolic blood pressure 144 mm[Hg] Luiz MORRISON [facility] 08-31-2021 15:23-0500 Diastolic blood pressure 60 mm[Hg] Terri Powellsop Work Phone: [facility] 600 DO Work Phone: 08-31-2021 15:23-0500 Systolic blood pressure 130 mm[Hg] Terri Powellsop Work Phone: [facility] 600 DO Work Phone: 08-31-2021 15:08-0500 Body height 177.8 cm Terri Powellsop Work Phone: [facility] 600 DO Work Phone: 08-31-2021 15:08-0500 Body mass index (BMI) [Ratio] 40.89 kg/m2 Terri Powellsop Work Phone: [facility] 600 DO Work Phone: 08-31-2021 15:08-0500 Body surface area Derived from formula 2.43 m2 Terri Powellsop Work Phone: [facility] 600 DO Work Phone: 08-31-2021 15:08-0500 Body weight 129.28 kg Terri Powellsop Work Phone: [facility] 600 DO Work Phone: 08-31-2021 15:08-0500 Diastolic blood pressure 79 mm[Hg] Terri Powellsop Work Phone: [facility] 600 DO Work Phone: 08-31-2021 15:08-0500 Heart rate 75 /min Terri Allsop Work Phone: [facility] 600 DO Work Phone: 08-31-2021 15:08-0500 Systolic blood pressure 144 mm[Hg] Terri Allsop Work Phone: -[facility] 600 DO Work Phone: 03-10-2021 15:09-0400 Body height 177.8 cm Terri Allsop Other Phone: [facility] 03-10-2021 15:09-0400 Body temperature 98.42 [degF] Terri Allsop Other Phone: [facility] 03-10-2021 15:09-0400 Diastolic blood pressure 70 mm[Hg] Terri Allsop Other Phone: [facility] 03-10-2021 15:09-0400 Heart rate 82 /min Terri Allsop Other Phone: [facility] 03-10-2021 15:09-0400 SaO2% (BldA) [Mass fraction] 95 % Terri Allsop Other Phone: [facility] 03-10-2021 15:09-0400 Systolic blood pressure 132 mm[Hg] Terri Allsop Other Phone: [facility] Encounters Encounter Date Encounter Type Care Provider Facility Start: 06-20-2024 ambulatory Luiz Gamble ty:[facility] Start: 06-13-2024 End: 06-13-2024 Refill Heaven Lopez MA [facility] Comment on above: Primary hypertension (CMS/HCC); Seasonal allergies Start: 06-04-2024 End: 06-04-2024 Bamboo flowsheet Adam Jack DPM FACFAS Work Phone: [facility] Start: 06-04-2024 End: 06-04-2024 Bamboo flowsheet Adam Jack DPM FACFAS Work Phone: [facility] Start: 06-04-2024 End: 06-04-2024 Patient encounter procedure Adam Jack DPM FACFAS Work Phone: [facility] Comment on above: Onychomycosis (Prima ry Dx); Pain in left toe(s); Pain in right toe(s) Start: 06-04-2024 End: 06-04-2024 ambulatory ADAM JACK Not Available Start: 06-01-2024 End: 06-01-2024 ambulatory TERRI SANTOS Facility:[facility] Start: 06-01-2024 End: 06-01-2024 Patient encounter procedure Josselin Decker MD Work Phone: Ophthalmology Comment on above: Epiretinal membrane (ERM) of both eyes (Primary Dx); Floppy eyelid syndrome of both eyes; Combined form of age-related cataract, both eyes; Benign prostatic hyperplasia without lower urinary tract symptoms; Anxiety disorder, unspecified type; Essential hypertension; Mixed hyperlipidemia; Obstructive sleep apnea syndrome Start: 05-25-2024 End: 05-25-2024 ambulatory Luiz MORRISON Facility:[facility] Start: 05-25-2024 End: 05-25-2024 Patient encounter procedure Luiz MORRISON 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; Cardiomyopathy, unspecified type (CMS/HCC); PVD (peripheral vascular disease) (CMS/HCC); Essential hypertension (CMS/HCC); BMI 40.0-44.9, adult (CMS/[facility]); Morbid obesity ([facility]) Start: 05-10-2024 End: 05-10-2024 ambulatory LILIANA Chuckie JOY Not Available Start: 05-07-2024 End: 05-07-2024 ambulatory [facility] Work Phone: Start: 05-07-2024 End: 05-07-2024 Patient encounter procedure [facility] Work Phone: Start: 04-13-2024 End: 04-13-2024 ambulatory GUNNAR ADLER Not Available Start: 03-26-2024 End: 03-26-2024 ambulatory ADAM D DOLCE Not Available Start: 03-12-2024 End: 03-12-2024 Patient encounter procedure [facility] Work Phone: Start: 01-09-2024 End: 01-09-2024 ambulatory ADAM D DOLCE Not Available Start: 12-01-2023 End: 12-01-2023 ambulatory TERRI D ALLSOP Not Available Start: 11-25-2023 End: 11-25-2023 ambulatory Terri D Allsop Facility:[facility] Start: 11-25-2023 End: 11-25-2023 Patient encounter procedure Terri D Allsop [facility] Start: 11-17-2023 End: 11-17-2023 ambulatory TERRI D ALLSOP Not Available Start: 10-31-2023 End: 10-31-2023 ambulatory ADAM D DOLCE Not Available Start: 10-21-2023 End: 10-21-2023 ambulatory Terri D Allsop Facility:[facility] Start: 10-21-2023 End: 10-21-2023 Patient encounter procedure Terri D Allsop [facility] Start: 09-30-2023 End: 09-30-2023 Office outpatient visit 25 minutes Delores Ac MD Work Phone: [facility] Comment on above: Essential hypertensi on; Non-ischemic cardiomyopathy (CMS/HCC); Hyperlipidemia, unspecified hyperlipidemia type; Obstructive sleep apnea, adult; Morbid obesity with BMI of 40.0-44.9, adult (CMS/HCC) Start: 09-30-2023 End: 09-30-2023 ambulatory DELORES Noguera [facility]ulatory Start: 08-25-2023 End: 08-25-2023 ambulatory TERRI SANTOS Not Available Start: 08-22-2023 End: 08-22-2023 ambulatory ADAM JACK Not Available Start: 06-15-2023 End: 06-15-2023 ambulatory Luiz MORRISON Facility:[facility] Start: 06-15-2023 End: 06-15-2023 Patient encounter procedure Luiz MORRISON [facility] Start: 04-30-2023 End: 04-30-2023 Patient encounter procedure Luiz MORRISON [facility] Start: 02-21-2023 Office outpatient vi sit 15 minutes [facility] Start: 02-21-2023 End: 02-21-2023 ambulatory [facility] Work Phone: Start: 02-21-2023 End: 02-21-2023 Patient encounter procedure MD Terri Santos Work Phone: [facility] Work Phone: Start: 11-04-2022 Rx Renewal Terri Rm p Work Phone: [facility] 250 DO Work Phone: Start: 11-03-2022 End: 11-03-2022 Patient encounter procedure Luiz MORRISON [facility] Start: 09-29-2022 Chart Update Terri Allso p Work Phone: [facility] 600 DO Work Phone: Start: 09-29-2022 End: 09-29-2022 Patient encounter procedure Delores Ac [facility] Start: 09-28-[address] Delores Ac Facility: Start: 09-28-2022 Office outpatient vi sit 10 minutes Terri Allsop Work Phone: [facility] 600 DO Work Phone: Start: 09-10-2022 Office outpatient vi sit 25 minutes Terri Allsop Work Phone: [facility] 600 DO Work Phone: Start: 09-10-2022 Patient encounter procedure Terri Allsop Work Phone: [facility] 600 DO Work Phone: Start: 09-10-[address] Terri Santos Facility: Start: 07-02-2022 Rx Renewal Terri Allso p Work Phone: [facility] 250 DO Work Phone: Start: 06-24-2022 End: 06-24-2022 Patient encounter procedure William Brush [facility] Start: 05-21-2022 End: 05-21-2022 Patient encounter procedure Cici Merida OD Work Phone: Ophthalmology Comment on above: Epiretinal membrane (ERM) of both eyes (Primary Dx); Floppy eyelid syndrome of both eyes; Combined forms of age-related cataract of both eyes; Posterior vitreous detachment of both eyes; Vitreous floaters of both eyes Start: 05-12-2022 End: 05-12-2022 Patient encounter procedure Luiz MORRISON [facility] Start: 05-10-2022 Rx Renewal Terri greene Work Phone: [facility] 250 DO Work Phone: Start: 04-30-2022 End: 04-30-2022 Patient encounter procedure Luiz MORRISON [facility] Start: 04-27-2022 End: 04-28-2022 ambulatory Luiz Morrison Facility:[facility] Start: 04-27-2022 End: 04-28-2022 Admission to same day surgery center MD Terri Santos Work Phone: [facility] [place] Start: 04-23-2022 End: 04-23-2022 ambulatory Luiz Morrison Facility:[facility] Start: 04-23-2022 End: 04-23-2022 Patient encounter procedure MD Terri Santos Work Phone: [facility] Start: 04-13-2022 End: 04-13-2022 ambulatory Luiz Morrison Facility:[facility] Start: 04-13-2022 End: 04-13-2022 Patient encounter procedure MD Terri Santos Work Phone: [facility] Start: 04-01-2022 End: 04-01-2022 Lab Drop off Adam Jack [facility] Start: 04-01-2022 End: 04-01-2022 Patient encounter procedure Leonid WHITEHEAD [facility] [place] Start: 03-26-2022 End: 04-07-2022 Pre-admission assessment Milo Gonzales [facility] Start: 03-17-2022 End: 03-17-2022 Patient encounter procedure Luiz MORRISON [facility] Start: 03-02-2022 End: 03-02-2022 Patient encounter procedure Luiz MORRISON [facility] Start: 02-22-2022 End: 02-22-2022 ambulatory Burak Rangel Other [facility] [employer] [facility] Other Start: 02-22-2022 Office outpatient vi sit 15 minutes Burak Rangel [facility] Start: 02-22-2022 End: 02-22-2022 Patient encounter procedure MD Terri Santos Work Phone: [facility] Start: 01-21-2022 End: 01-21-2022 Patient encounter procedure MD Terri Santos Work Phone: [facility] [place] Start: 12-22-2021 End: 12-22-2021 Lab Drop off Luiz MORRISON [facility] Start: 12-22-2021 End: 12-22-2021 Patient encounter procedure Luiz MORRISON [facility] Start: 12-11-2021 End: 02-20-2022 Pre-admission assessment William Brush [facility] Start: 12-11-2021 End: 12-11-2021 Patient encounter procedure William BuenoPrashant Brush [facility] [place] Start: 12-10-2021 End: 12-10-2021 Patient encounter procedure Belinda GIL [facility] Start: 12-08-2021 End: 12-08-2021 Patient encounter procedure Luiz MORRISON [facility] Start: 12-01-2021 End: 12-01-2021 Patient encounter procedure Luiz MORRISON [facility] Start: 11-19-2021 End: 11-19-2021 Patient encounter procedure Luiz MORRISON [facility] Start: 11-04-2021 End: 11-04-2021 Patient encounter procedure Luiz MORRISON [facility] Start: 08-31-2021 Office outpatient vi sit 25 minutes Terri Powellsop Work Phone: [facility] 600 DO Work Phone: Start: 06-10-2021 Rx Renewal Terri Allso p Work Phone: [facility] 600 DO Work Phone: Start: 03-10-2021 End: 03-10-2021 Emergency department patient visit Chriss Marie [facility] Start: 04-11-2018 End: 04-11-2018 Emergency department patient visit Danyell Nelson Facility:[facility] Procedures Date Procedure Procedure Detail Performing Clinician Start: 06-01-2024 Fundus photography w/interpretation & report Josselin Decker MD Work Phone: Start: 06-01-2024 Computerized ophthal indy imaging retina Josselin Decker MD Work Phone: Start: 06-24-2022 Colonoscopy Delores whitney MD Work Phone: Start: 06-24-2022 Colonoscopy William Wei ny Start: 05-21-2022 Computerized ophthal indy imaging retina Cici Merida OD Work Phone: Start: 04-27-2022 Transurethral prostatectomy MD Terri Santos Work Phone: Start: 04-27-2022 Transurethral prostatectomy Luiz MORRISON Start: 01-21-2022 MR prostate wo/w con MD Terri Santos Work Phone: Start: 01-21-2022 MRI-US fusion guided prostate biopsy Luiz MORRISON Start: 12-08-2021 Urodynamic studies Ericka MORRISON Start: 10-08-2011 Colonoscopy Cici mccullough OD Work Phone: Start: 10-08-2011 Colonoscopy Luiz PATRICK Start: 08-10-2011 Colonoscopy Luizcaitie PATRICK Hemorrhoid operation Luiz MORRISON Hemorrhoidectomy Terri Shah Work Phone: Tonsillectomy Luiz MORRISON Total colonoscopy Terri prieto Work Phone: Plan of Treatment Date Care Activity Detail Author Start: 09-03-2033 DTaP/Tdap/Td Vaccine s (2 - Td or Tdap) DTaP/Tdap/Td Vaccines (2 - Td or Tdap) [facility] Start: 09-03-2033 Urine microalbumin profile DTaP,Tdap,Td Vaccine (2 - Td or Tdap) [facility] Start: 06-24-2032 Screening for malign ant neoplasm of colon [facility] Start: 11-23-2024 End: 11-23-2024 Patient encounter procedure 11/23/2024 2:30 PM EDT Office Visit OPHT Ophthalmology [address] [id number] Josselin Decker MD [address] [id number] oct/erm Ophthalmology Comment on above: oct/erm Start: 11-08-2024 End: 11-08-2024 Patient encounter procedure 11/08/2024 9:00 AM EDT Office Visit [facility] [address] [place] [phone] Liliana Waller MD [address] [place] [address] [facility] Start: 09-25-2024 End: 09-25-2024 Patient encounter procedure 09/25/2024 9:00 AM EST Office Visit [address] [place] [phone] Delores Ac MD [address] [facility] 2, [facility] [address] [place] [address] [facility] Start: 08-20-2024 End: 08-20-2024 Patient encounter procedure 08/20/2024 8:00 AM EST Procedure Visit [facility] [address] [place] [phone] Adam Jack, DPM FACFAS [address] [facility] [place] [address] [facility] Start: 06-04-2024 End: 06-04-2024 Patient encounter procedure [facility] Comment on above: Arrived Start: 05-10-2024 End: 05-10-2024 Patient encounter procedure 05/10/2024 9:20 AM EDT Office Visit MARIAM GARZA [address] [place] [phone] Liliana Waller MD [address] [place] [address] Arrived [facility] Comment on above: Arrived Start: 04-08-2024 Influenza vaccination Influenza Vacc ine (#1) [facility] Start: 10-29-2023 Zoster Vaccines (2 o f 2) Zoster Vaccines (2 of 2) [facility] Start: 09-30-2023 FUV, Provider: Delores Ac, Status: Pen, Time: 9:00 AM FUV, Provider: Delores Ac, Status: Pen, Time: 9:00 AM [facility] Work Phone: Start: 08-08-2023 Advance Directive Discussion Advance Directive Discussion [facility] Start: 04-08-2023 COVID-19 Vaccine ( season) COVID-19 Vaccine ( season) [facility] Start: 09-28-2022 NURSEVST, Provider: ISHA TRINIDAD ADMINISTRATIVE ACCOUNTANT 1,[id number], Status: Pen, Time: 11:30 AM NURSEVST, Provider: ISHA TRINIDAD ADMINISTRATIVE ACCOUNTANT 1,[id number], Status: Pen, Time: 11:30 AM [facility] Work Phone: Start: 08-31-2022 FUV, Provider: Delores Ac, Status: Pen, Time: 8:40 AM FUV, Provider: Delores Ac, Status: Pen, Time: 8:40 AM [facility] Work Phone: Start: 08-03-2022 Pneumococcal Vaccine : 65+ (2 of 2 - PCV) Pneumococcal Vaccine: 65+ (2 of 2 - PCV) [facility] Start: 08-03-2022 Pneumococcal Vaccine : 65+ Years (2 - PCV) Pneumococcal Vaccine: 65+ Years (2 - PCV) [facility] Start: 04-28-2022 [facility] Work Phone: Start: 04-27-2022 Hospital admission [facility] Work Phone: Start: 04-08-2022 Influenza vaccination INFLUENZA (#1) [facility] Start: 01-21-2022 MR prostate wo/w con MR prostate wo/ w con [facility] Start: 10-05-2021 COVID-19 VACCINE (4 - Booster for Moderna series) COVID-19 VACCINE (4 - Booster for Moderna series) [facility] Start: 08-08-2021 ADVANCE DIRECTIVE DISCUSSION ADVANCE DIRECTIVE DISCUSSION [facility] Start: 08-08-2021 DEPRESSION ASSESSMENT DEPRESSION ASS ESSMENT [facility] Start: 07-10-2021 STACIA, Provider : Delores Ac, Status: Pen, Time: 10:10 AM STACIA, Provider: Delores Ac, Status: Pen, Time: 10:[address] [facility] 600 DO Work Phone: Start: 01-01-2021 PNEUMOCOCCAL: 65+ (1 - PCV) PNEUMOCOCCAL: 65+ (1 - PCV) [facility] Start: 10-07-2012 Colonoscopy COLONOSCOPY [facility] Start: 10-07-2012 COLORECTAL CANCER SCREENING COLORECTAL CANCER SCREENING [facility] Start: 10-07-2012 Screening for malign ant neoplasm of colon [facility] Start: 01-01-2011 PROSTATE CANCER SCREENING DISCUSSION PROSTATE CANCER SCREENING DISCUSSION [facility] Start: 01-01-2011 Prostate specific antigen measurement Prostate Cancer Screening Discussion [facility] Start: 01-01-2006 SHINGRIX VACCINE (1 of 2) SHINGRIX VACCINE (1 of 2) [facility] Start: 01-01-2001 COLOGUARD (FIT-DNA) COLOGUARD (FIT-D NA) [facility] Start: 01-01-[address] [facility] Start: 01-01-2001 DIABETES SCREEN DIABETES SCREEN [facility] Start: 01-01-2001 Diabetes Screening Diabetes Screenin g [facility] Start: 01-01-2001 FECAL OCCULT BLOOD FECAL OCCULT BLOO D [facility] Start: 01-01-2001 Screening for malign ant neoplasm of colon [facility] Start: 01-01-2001 SIGMOIDOSCOPY SIGMOIDOSCOPY Clesloan pfeiffer [facility] Start: 01-01-1991 Lipid panel Lipid Screening [facility] reji [facility] Start: 01-01-1991 LIPID SCREEN LIPID SCREEN [facility] Start: 01-01-1975 Urine microalbumin profile DTAP,TDAP,TD (1 - Tdap) [facility] Start: 01-01-1974 Annual PCP Team Desktop Specialist gonzalo Disease Visit Annual PCP Team Chronic Disease Visit [facility] Start: 01-01-1974 BP Controlled (<130/80) BP Controlle d (<130/80) [facility] Start: 01-01-1974 Depression Screening Depression Scre ening [facility] Start: 01-01-1974 Diabetes mellitus screening Diabetes Screening [facility] Start: 01-01-1974 HEPATITIS C SCREENING HEPATITIS C [facility] Start: 01-01-1974 Hepatitis C screening Hepatitis C [facility] Start: 1956 Lipid panel Lipid Panel [facility] Start: 1956 Screening for malign ant neoplasm of colon [facility] Start: 1956 Yearly Adult Physical Yearly Adult P [facility] Patient referral [facility] Work Phone: [facility] c Immunizations Immunization Date Immunization Notes Care Provider Fa pari 04-14-2024 influenza virus vacc ine, unspecified formulation Liliana Waller MD Work Phone: [facility] 05-19-2023 influenza virus vacc ine, unspecified formulation Luiz MORRISON [facility] 05-19-2023 Influenza, High-dose Seasonal, Quadrivalent, Preservative Free Liliana Waller MD Work Phone: [facility] 05-27-2022 Fluzone High-Dose Quadrivalent 0.7 ML Intramuscular Suspension Prefilled Syringe Terri Santos Work Phone: [facility] 600 DO Work Phone: 05-27-2022 influenza virus vacc ine, unspecified formulation Luiz MORRISON [facility] 08-10-2021 Moderna COVID-19 Vac cine 100 MCG/0.5ML Intramuscular Suspension Terri Powellsop Work Phone: [facility] 08-08-2021 SARS-CoV-2 (COVID-19 ) [id number] vaccine Luiz MORRISON [facility] Comment on above: Result Comment: [facility] 08-03-2021 Fluzone High-Dose Quadrivalent 0.7 ML Intramuscular Suspension Prefilled Syringe Terri Allsop Work Phone: [facility] 600 DO Work Phone: 08-03-2021 influenza virus vacc ine, unspecified formulation Luiz MORRISON [facility] 08-03-2021 pneumococcal polysaccharide vaccine, 23 valent Terri Allsop Work Phone: [facility] 600 DO Work Phone: 2021 Moderna COVID-19 Vac cine 100 MCG/0.5ML Intramuscular Suspension Terri Allsop Work Phone: [facility] 600 DO Work Phone: 12-05-2020 Moderna COVID-19 Vac cine 100 MCG/0.5ML Intramuscular Suspension Terri Allsop Work Phone: [facility] 600 DO Work Phone: 06-26-2020 influenza virus vacc ine, unspecified formulation Luiz MORRISON [facility] 06-26-2020 influenza, injectabl e, quadrivalent, preservative free Terri Allsop Work Phone: [facility] 600 DO Work Phone: 06-16-2019 influenza virus vacc ine, unspecified formulation Luiz [employer] [facility] 06-16-2019 seasonal influenza, intradermal, preservative free Terri Allsop Work Phone: [facility] 600 DO Work Phone: 06-08-2019 influenza virus vacc ine, unspecified formulation Luiz [employer] [facility] 06-08-2019 influenza, seasonal, injectable Terri All[facility]op [facility]: [facility] 600 DO Work Phone: 06-07-2019 influenza virus vacc ine, unspecified formulation Luiz [employer]ia[employer] [facility] 05-08-2018 influenza virus vacc ine, unspecified formulation Terri Allsop Work Phone: [facility] 600 DO Work Phone: 06-08-2016 influenza virus vacc ine, unspecified formulation Terri Allsop Work Phone: [facility] 600 DO Work Phone: 06-08-2016 pneumococcal polysaccharide vaccine, 23 valent Terri Allsop Work Phone: [facility] Work Phone: 05-16-2015 influenza virus vacc ine, unspecified formulation Terri Allsop Work Phone: [facility] 600 DO Work Phone: 06-22-2013 influenza virus vacc ine, unspecified formulation Terri Allsop Work Phone: [facility] 600 DO Work Phone: 06-21-2013 pneumococcal polysaccharide vaccine, 23 valent Terri Allsop Work Phone: [facility] 600 DO Work Phone: 05-01-2012 influenza virus vacc ine, whole virus Terri Allsop Work Phone: [facility] Work Phone: 05-01-2012 influenza, whole Luiz ANDREW ERS [facility] influenza virus vacc ine, unspecified formulation Terri Allsop Work Phone: [facility] 600 DO Work Phone: Comment on above: 2011 2006 Payers Date Payer Category Payer Self-pay [id number] 2021 Private Health Insurance [employer] [id number] 2018 Unknown 2014 Unknown [id number] 1955 Unknown [id number] 2.16.840.1.117978.3.579.2. 356 1955 Unknown [id number] 2.16.840.1.516737.3.579.2. 356 1955 Unknown [id number] 2.16.840.1.499666.3.579.2. 1244 1955 Unknown [id number] 2.16.840.1.472969.3.579.2. 727 1955 Unknown [id number] 2.16.840.1.722747.3.579.2. 727 1955 Unknown [id number] 2.16.840.1.246313.3.579.2. 72 1955 Unknown [id number] 2.16.840.1.498846.3.579.2. 727 1955 Unknown [id number] 2.16.840.1.904425.3.579.2. 7 1955 Unknown [id number] 2.16.840.1.605535.3.579.2. 125 1955 Unknown [id number] 2.16.840.1.548927.3.579.2. 1258 1955 Unknown [id number] 2.16.840.1.757208.3.579.2. 1258 1955 Unknown [id number] 2.16.840.1.205693.3.579.2. 125 1955 Unknown [id number] 2.16.840.1.419803.3.579.2. 1258 1955 Unknown [id number] 2.16.840.1.103121.3.579.2. 1258 1955 Unknown [id number] 2.16.840.1.835586.3.579.2. 125 1955 Unknown [id number] 2.16.840.1.394411.3.579.2. 1258 1955 Unknown [id number] 2.16.840.1.640117.3.579.2. 1259 1955 Unknown [id number] 2.16.840.1.898308.3.579.2. 1259 Unknown [id number] 2.16.840.1.614650.3.579.2. 531 Unknown [id number] 2.16.840.1.322698.3.579.2. 531 Unknown [id number] 2.16.840.1.017294.3.579.2. 531 Unknown [id number] 2.16.840.1.937828.3.579.2. 531 Social History Date Type Detail Facility [facility] Tobacco smoking consumption unknown [facility] Start: 09-30-2023 End: 06-04-2024 [facility] Start: 11-04-2021 End: 01-04-2023 Tobacco smoking status Never smoked tobacco (finding) [facility] [employer] Tobacco smoking status Ex-smoker (finding ) [facility] [place] Tobacco smoking status Never [facility] Start: 09-30-2023 End: 06-04-2024 Sex Assigned At Male [facility] [employer] Start: 1955 Sex Assigned At Male [facility] Start: 04-12-2018 End: 01-04-2023 Tobacco use and exposure Smokeless tobacco non-user [facility] Start: 05-21-2022 End: 06-04-2024 Alcohol intake Lifetime non-drinker (finding) [facility] Start: 08-27-2019 History SDOH Alcohol Frequency 1 [facility] Start: 1955 Sex Assigned At Not on file [facility] Start: 05-11-2022 End: 09-30-2023 Exposure to SARS-CoV-2 (event) Not sure [facility] Start: 01-03-2023 Alcohol Comment caffeine: 2-3 cups per day [facility] Healthcare Goals Date Patient Goal Desired Activity /State Functional Status Date Assessment Result Facility 06-15-2023 Functional Status N/A [facility] 11-03-2022 Functional Status N/A [facility] 06-24-2022 Functional Status N/A [facility] 05-12-2022 Functional Status N/A [facility] 04-28-2022 Functional status Patient at Baseline [facility] Work Phone: 04-01-2022 Functional Status N/A [facility] [place] 03-17-2022 Functional Status N/A [facility] Mental Status Date Assessment Result Facility 04-28-2022 Cognitive function Cognitive Sta tus Patient at Baseline [facility] Work Phone: Clinical Notes 08-15-2020 to 06-13-2024 Telephone Encounter - Yudith Daniel NP - 06/13/2024 10:59 AM ESTTelephone Encounter - Yudith Daniel NP - 06/13/2024 10:59 AM ESTAdam Jack DPM FACFAS - 06/04/2024 8:00 AM EDT Note Date & Type Note Facility 06-13-2024 Telephone encounter Note HR OOO, Rx sent. [facility] 06-13-2024 Miscellaneous Notes HR OOO, Rx sent. documented in this encounter [facility] 06-04-2024 History of Present illness Narrative Images from the original note were not included. patient: Phu Lopez : 1955 PCP: Liliana Waller MD SUBJECTIVE This is a 69 y.o. male that presents today with a chief complaint of painful elongated nails digits 1 through 10. They cause marked limitation in ambulation due to pain and pressure from shoe gear. Allergies: Allergies Allergen Reactions Clarithromycin Unknown Past Medical History: Past Medical History: Diagnosis Date Abnormal results of liver function studies Anxiety disorder Cardiomyopathy (CMS/HCC) Elevated PSA Essential hypertension (CMS/HCC) Functional movement disorder HLD (hyperlipidemia) (CMS/HCC) Hyperglycemia Hypokalemia Left ventricular failure (CMS/HCC) Obesity (BMI 30-39.9) OM (onychomycosis) Other seasonal allergic rhinitis RLS (restless legs syndrome) Sleep apnea Tinea pedis Medications: Current Outpatient Medications: aMILoride (Midamor) 5 MG tablet, Take 5 mg by mouth in the morning., Disp: , Rfl: amLODIPine (Norvasc) 10 MG tablet, Take 1 tablet (10 mg) by mouth in the morning., Disp: 30 tablet, Rfl: 11 apixaban (Eliquis) 5 MG tablet, Take 1 tablet (5 mg) by mouth in the morning and 1 tablet (5 mg) before bedtime., Disp: 60 tablet, Rfl: 5 aspirin 325 MG tablet, Take 325 mg by mouth in the morning., Disp: , Rfl: carvedilol (Coreg) 25 MG tablet, Take by mouth 2 (two) times a day with meals., Disp: , Rfl: doxazosin (Cardura) 4 MG tablet, TAKE 1 TABLET BY MOUTH ONCE DAILY AT BEDTIME, Disp: 30 tablet, Rfl: 11 finasteride (Proscar) 5 MG tablet, Take 5 mg by mouth in the morning. Do not crush, chew, or split. ., Disp: , Rfl: hydrALAZINE (Apresoline) 50 MG tablet, Take 1 tablet (50 mg) by mouth in the morning and 1 tablet (50 mg) in the evening and 1 tablet (50 mg) before bedtime., Disp: 90 tablet, Rfl: 3 hydroCHLOROthiazide (HYDRODiuril) 25 MG tablet, TAKE 1 TABLET BY MOUTH ONCE DAILY IN THE MORNING, Disp: 90 tablet, Rfl: 3 losartan (Cozaar) 100 MG tablet, Take 1 tablet (100 mg) by mouth in the morning., Disp: 30 tablet, Rfl: 11 lovastatin (Mevacor) 20 MG tablet, Take 1.5 tablets (30 mg) by mouth in the morning., Disp: 45 tablet, Rfl: 11 montelukast (Singulair) 10 MG tablet, Take 1 tablet (10 mg) by mouth at bedtime., Disp: 30 tablet, Rfl: 11 niacin (Niaspan) 500 MG ER tablet, Take 500 mg by mouth at bedtime. Do not crush, chew, or split., Disp: , Rfl: PARoxetine (Paxil) 20 MG tablet, TAKE 1/2 TO 1 (ONE-HALF TO ONE) TABLET BY MOUTH ONCE DAILY, Disp: 90 tablet, Rfl: 3 potassium chloride CR (Klor-Con M10) 10 MEQ ER tablet, Take 10 mEq by mouth in the morning. Do not crush or chew. ., Disp: , Rfl: potassium chloride CR (Klor-Con) 10 MEQ ER tablet, TAKE 7 TABLETS BY MOUTH ONCE DAILY FOR 30 DAYS, Disp: 210 tablet, Rfl: 11 Review of systems: Constitutional: Denies fever, chills, nausea, vomiting GI: Denies abdominal pain, cramping, loose stool, gastric ulcers Musculoskeletal: Denies low back pain, knee pain, systemic arthritis Neurologic: Denies burning, tingling, transient paralysis OBJECTIVE Physical Examination: DERM: Positive hair growth to b/l feet with good skin turgor noted. Negative openings in skin. No macerations noted interdigitally. Web spaces were clean and dry. No ulcerations were noted. Nails 1 through 10 were thickened elongated yellow and crumbly with subungual debris. They were painful to palpation 60563 on the right 12480 on the left. VASC: DP /PT were nonpalpable bilateral. Capillary refill time < 3 seconds Digits 1-5 bilateral NEURO: [place] Osiris 5.07 monofilament was intact B/L. Vibratory sensation was intact B/L Musculoskeletal: Muscle strength was +5 over 5 all intrinsic and extrinsic muscles tested. Radiographs: AP/MO/LAT: Diagnostic ultrasound: ASSESSMENT 1. Onychomycosis 2. Pain in left toe(s) 3. Pain in right toe(s) PLAN The patient was educated on proper foot care as well as the etiology of onychomycosis. I educated the patient on proper shoe gear as well. Today the nails were debrided both in length and thickness 1 through 10. ROSA Redmond documented in this encounter [facility] 06-01-2024 Note Date of Procedure 06/01/2024. Supply Analyst Information Wet Room Worker: tomás. Interpretation Right Eye Findings include Epiretinal membrane. Left Eye Normal foveal contour. [facility] 06-01-2024 Note Date of Procedure 06/01/2024. C/D Ratio Right Eye 0.1. Left Eye 0.1. Macula Right Eye Epiretinal membrane. Left Eye Normal. Periphery Right Eye Normal. Left Eye Normal. [facility] 06-01-2024 Instructions Josselin Decker MD - 06/01/2024 2:28 PM EDT If you have any questions please contact our office at [phone]. After office hours or on the weekend, please call Dr. Decker on his cell phone at [phone]. documented in this encounter [facility] 06-01-2024 Note HNO ID: [id number] Author: JOSSELIN DECKER MD Service: ? Author Type: Physician Type: Progress Notes Filed: 06/01/2024 15:26 Note Text: ASSESSMENT/PLAN: 1. Epiretinal membrane (ERM) of both eyes - ICD9: 362.56, ICD10: H35.373 (primary diagnosis) - FUNDUS PHOTOS OU (BOTH EYES) - OCT MACULA CIRRUS OU (BOTH EYES) - Stable / Monitor 2. 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 Combined form of age-related cataract, both eyes - ICD9: 366.19, ICD10: H25.813 - Monitor 4. Benign prostatic hyperplasia without lower urinary tract symptoms - ICD9: 600.00, ICD10: N40.0 5. Anxiety disorder, unspecified type - ICD9: 300.00, ICD10: F41.9 6. Essential hypertension - ICD9: 401.9, ICD10: I10 7. Mixed hyperlipidemia - ICD9: 272.2, ICD10: E78.2 8. Obstructive sleep apnea syndrome - ICD9: 327.23, ICD10: G47.33 - Continue to monitor with PCP I have confirmed and edited as necessary the relevant HPI, ophthalmic history, ROS, and the neuro exam findings as obtained by others. I have seen and examined Phu Lopez. I have discussed the case and the management of this patient's care with the Resident/Fellow, if applicable. I also have reviewed and agree with the assessment and plan as stated above and agree with all of its relevant components. [facility] 06-01-2024 History of Present illness Narrative ASSESSMENT/PLAN: 1. Epiretinal membrane (ERM) of both eyes - ICD9: 362.56, ICD10: H35.373 (primary diagnosis) - FUNDUS PHOTOS OU (BOTH EYES) - OCT MACULA CIRRUS OU (BOTH EYES) - Stable / Monitor 2. 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 Combined form of age-related cataract, both eyes - ICD9: 366.19, ICD10: H25.813 - Monitor 4. Benign prostatic hyperplasia without lower urinary tract symptoms - ICD9: 600.00, ICD10: N40.0 5. Anxiety disorder, unspecified type - ICD9: 300.00, ICD10: F41.9 6. Essential hypertension - ICD9: 401.9, ICD10: I10 7. Mixed hyperlipidemia - ICD9: 272.2, ICD10: E78.2 8. Obstructive sleep apnea syndrome - ICD9: 327.23, ICD10: G47.33 - Continue to monitor with PCP I have confirmed and edited as necessary the relevant HPI, ophthalmic history, ROS, and the neuro exam findings as obtained by others. I have seen and examined Phu Lopez. I have discussed the case and the management of this patient's care with the Resident/Fellow, if applicable. I also have reviewed and agree with the assessment and plan as stated above and agree with all of its relevant components. documented in this encounter [facility] 05-10-2024 History of Present illness Narrative Images [...] in regimen. Continue to follow w/ vascular [facility] current use of anticoagulant Cardiomyopathy, unspecified type (CMS/HCC) Stable, continue to monitor. No change in regimen. PVD (peripheral vascular disease) (CMS/HCC) Stable, continue to monitor. No change in regimen. Continue to follow w/ vascular Essential hypertension (CMS/HCC) Stable, continue to monitor. No change in regimen. BMI 40.0-44.9, adult (CMS/HCC) Morbid obesity (CMS/HCC) - continue to monitor weight documented in this encounter [facility] 09-30-2023 History of Present illness Narrative Subjective [...] has been very compliant Delores Ac MD, [facility] Review of Systems All other systems [...] Scribe Attestation By signing my name below, shira Smithleticldany , Scribe attest that this documentation has [...] discussion and plan. documented in this encounter [facility] Work Phone: 09-30-2023 Instructions Kitty [...] Increase physical activity. documented in this encounter [facility] Work Phone: 06-15-2023 Hospital Discharge [...] urethra. Follow these instructions at home: Take pzdl-sar-xaokwsl and prescription medicines only as told by [...] provider. Document Revised: 02/10/2022 Document Reviewed: 02/10/2022 [employer] Patient Education 2022 [employer]. 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 Follow these instructions at home: Take azyg-moq-kpxulhj and prescription medicines only as told by [...] 07/25/2006 Document Revised: 06/19/2019 Document Reviewed: 08/29/2017 [employer] Patient Education 2020 [employer]. Follow Up Care 07/29/2022 09:30:30 With:TAMIKO SAEZ, Luiz Jackson, URL Address: [facility] [address] , [place] [address]- When: Unknown [facility] 11-17-2022 Hospital Discharge instructions Patient Education 06/24/2022 [...] a slower pace than normal. ?Eat soft, gjek-lq-iygpov foods. Take dfml-sif-ivaahgk or prescription medicines only as told by [...] 03/08/2005 Document Revised: 05/17/2018 Document Reviewed: 10/05/2016 [employer] Patient Education 2020 [employer]. Follow Up Care 02/15/2022 10:08:03 With:William Brush Address:Unknown When: Unknown Comments:will call with results [facility]10-14-2022 Instructions* Patient Instructions* Cici Merida, OD - 05/21/2022 3:51 PM EDT ASSESSMENT/PLAN: [...] delay. Recommended yearly exams. [facility] History of Present illness Narrative* Cici Merida, OD - 05/21/2022 3:49 PM EDT ASSESSMENT/PLAN: [...] to clinic without delay. Recommended yearly exams. Cici Merida, OD I have confirmed and edited as necessary the relevant ophthalmic history, ROS, and the neuro exam findings as obtained by others. I have seen and examined this patient. [facility] Hospital Discharge instructions Patient Education [...] Follow these instructions at home: Medicines Take zpzy-pjw-vjcvwjd and prescription medicines only as told by [...] prevent or treat constipation, such as: ?Take hjhr-fvr-qscbcrg or prescription medicines. ?Eat foods that are [...] 11/14/2019 Document Reviewed: 04/25/2019 Elsevier Patient Education 2019 [employer] Follow Up Care 04/30/2022 08:49:28 With:TAMIKO SAEZ, Luiz Jackson, URL Address: [facility] [address] , [place] [address] [phone] When:08/12/2022 [facility] 08-10-2022 Hospital Discharge instructions Patient Education [...] including vitamins, herbs, eye drops, creams, and trjm-xlw-tyuolne medicines. Any problems you or family members [...] provider tells you to take them. Taking cvad-asu-fvvqfrn medicines, vitamins, herbs, and supplements. Eating and [...] 07/25/2006 Document Revised: 11/14/2019 Document Reviewed: 04/25/2019 [employer] Patient Education 2019 [employer]. Follow Up Care 02/12/2022 10:45:59 With:TAMIKO SAEZ, Luiz Jackson, URL Address: [facility] [address] , [place] [address]- [phone] When: Unknown Comments:schedule TURP [facility] 07-26-2022 Hospital Discharge instructions Patient Education 03/02/2022 [...] for your post-operative appointment in 1-2 weeks [phone] or [phone] Follow Up Care 02/12/2022 10:36:38 With:Luiz MORRISON Address: [facility] [address], [place] [address]- [facility] (1) When: Unknown Comments:Appointment has already been scheduled [facility]07-18-2022 Evaluation note* Encounter Date Diagnosis Assessment [...] G47.61) Feb, Morbid obesity (ICD-10 - E66.01) [facility] 05-16-2022 Hospital Discharge instructions Patient Education [...] Follow these instructions at home: Medicines Take ucol-bou-hlsmaov and prescription medicines only as told by [...] or the blood stops without treatment. Take zreb-puh-fzsgtaa and prescription medicines only as told by your health care provider. Drink enough fluid to keep your urine clear or pale yellow. This information is not intended to replace advice given to you by your health care provider. Make sure you discuss any questions you have with your health care provider. Document Released: 07/25/2006 Document Revised: 12/19/2019 Document Reviewed: 08/27/2017 [employer] Patient Education 2019 [employer]. Follow Up Care 12/01/2021 08:55:58 With:TAMIKO SAEZ, Luiz Jackson, URL Address: [facility] [address] , [place] [address]- When: Unknown Comments:Huyen WILKES. [facility] 05-06-2022 Hospital Discharge instructions Patient Education 12/11/2021 [...] ?Hypothyroidism. ?Polycystic ovarian syndrome (PCOS). ?Binge-eating disorder. ?Magee syndrome. Taking certain medicines, such as steroids, [...] food choices, such as grocery stores and [employer]. What are the signs or symptoms? The [...] and how much exercise you get. Take noip-qof-gixqwlk and prescription medicines only as told by [...] 09/01/2005 Document Revised: 03/29/2019 Document Reviewed: 03/29/2019 [employer] Patient Education 2019 [employer]. [facility] [place] 04-26-2022 Evaluation + Plan noteExtracted from: Title:Urology [...] list: All Problems asthma / SNOMED CT 509361066 / Confirmed Hypocalcemia / SNOMED CT 4340020 / Confirmed Hypokalemia / SNOMED CT 22053945 / Confirmed Obesity / SNOMED CT 0500311399 / Confirmed Chronic heart failure / SNOMED CT 52227067 / Confirmed Hyperlipidemia / SNOMED CT 49809261 / Confirmed Hyperglycemia / SNOMED CT 531192900 / Confirmed Hypertension / SNOMED CT 06453418 / Confirmed Male hypogonadism / SNOMED CT 09205415 / Confirmed Onychomycosis / SNOMED CT 2705226035 / Confirmed Hypothyroid / SNOMED CT 33949708 / Confirmed Depression / SNOMED CT 23335495 / Confirmed Heart disease / SNOMED CT 08874037 / Confirmed Histories Past Medical History: Active asthma (911394047): Onset in 1970 at 15 years. Resolved Depression (300.4): Onset on 12/10/2009 at 54 years. Resolved. Comments: 12/10/2009 EDT 10:06 EDT - Family History: Cardiac arrhythmia Father () Malignant lymphoma Mother () Comments: 12/07/2009 0:16 EDT - Adrián WATT, Merlyn Alaniz parathyroid cancer Procedure history: Colonoscopy (410037331) on 10/08/2011 at 56 Years. Colonoscopy (022268500) on 08/10/2011 at 56 Years. Tonsillectomy (096422107). Social History Social & Psychosocial Habits Alcohol [...] Date:12/11/2021 08:20:00 AM Scheduled Provider:William Brush MD Location:[facility] Appointment Type:[place] [address] Appointment Date:12/22/2021 08:00:00 AM Scheduled Provider:Luiz MORRISON MD [facility] [place] Type:URO Office Visit Diagnostic Tests Pending * [facility]roVysion Fish and Urine Cyto ([facility]) 12/01/21 [facility]04-26-2022 Hospital Discharge instructions Patient Education 12/01/2021 [...] MORRISON Address: [facility] [address] [place] [address]- Business (1) When: Unknown Comments:Office will call to schedule follow up [facility]03-30-2022 Evaluation + Plan note Future Scheduled Tests Radiology* CT Urogram 11/04/21 [facility] [id number] Hospital Discharge instructions Patient Education 11/04/2021 11:30:36 [...] Follow these instructions at home: Medicines Take kyij-vgf-houizxz and prescription medicines only as told by [...] or the blood stops without treatment. Take guxi-pgf-kjdthkx and prescription medicines only as told by your health care provider. Drink enough fluid to keep your urine clear or pale yellow. This information is not intended to replace advice given to you by your health care provider. Make sure you discuss any questions you have with your health care provider. Document Released: 07/25/2006 Document Revised: 12/19/2019 Document Reviewed: 08/27/2017 [employer] Patient Education 2020 [employer]. Follow Up Care 10/06/2021 15:23:45 With:Luiz MORRISON MD, URL Address: [facility] [address], [place] [phone] When: Unknown [facility] 01-08-2021 History of Past illness Narrative* Problem Noted Date Resolved Date Epiretinal membrane (ERM) of right eye 1 09/04/2021 documented as of this encounter (statuses as of 05/21/2022) [facility] App[facility]ments Appointment Date:12/01/2021 08:00:00 AM Scheduled Provider: Location:[facility] Appointment Type:Urology FT Appointment Date:12/11/2021 08:20:00 AM Scheduled Provider:William Brush MD Location:[facility] [address] [facility] Plan note Future Appointments Appointment Date:12/11/2021 08:20:00 AM Scheduled Provider:William Brush MD Location:[facility] Appointment Type: Appointment Date:12/22/2021 08:00:00 AM Scheduled Provider:Luiz MORRISON MD [facility] App[facility]ments Appointment Date:12/11/2021 08:20:00 AM Scheduled Provider:William Brush MD Location:[facility] Appointment Type:[place] [address] Appointment Date:12/22/2021 08:00:00 AM Scheduled Provider:Luiz MORRISON MD [facility] Type:URO Office Visit Diagnostic Tests Pending * Testosterone [facility]ments Appointment Date:12/22/2021 08:00:00 AM Scheduled Provider:Luiz MORRISON MD [facility] Type:URO Office Visit Appointment Date:02/19/2022 12:30:00 PM Scheduled Provider: Location:[facility] Appointment Type:Surgery FT [facility] [place] Evaluation + Plan note Future Appointments Appointment Date:02/19/2022 12:30:00 PM Scheduled Provider: Location:[facility] Appointment Type:Surgery FT Diagnostic Tests Pending * PSA Total 12/22/21 [facility] Evaluation + Plan note Future Appointments Appointment Date:02/19/2022 12:30:00 PM Scheduled Provider: Location:[facility] App[facility]ments Appointment Date:03/02/2022 09:45:00 AM Scheduled Provider: Location:[facility] Appointment Type:Urology FT Appointment Date:03/17/2022 02:00:00 PM Scheduled Provider:Luiz MORRISON MD [facility] Type:URO Office Visit Appointment Date:06/25/2022 12:30:00 PM Scheduled Provider: Location:[facility] Appointments Appointment Date:03/17/2022 02:00:00 PM Scheduled Provider:Luiz MORRISON MD Location:[facility] Appointment Type:URO Office Visit Appointment Date:06/25/2022 12:30:00 PM Scheduled Provider: [facility] Surgical Services Appointment Type:Surgery FT Diagnostic Tests Pending * Prostate Histology ([facility] Future App[facility]ments Appointment Date:06/25/2022 12:30:00 PM Scheduled Provider: Location:[facility] Surgical Services Appointment Type:Surgery FT [facility] Evaluation + Plan note Future Appointments Appointment Date:04/06/2022 02:30:00 PM Scheduled Provider:Milo Gonzales MD Location:[facility] Appointment Type:Pain Management - New (FT) Appointment Date:06/25/2022 12:30:00 PM Scheduled Provider: Location:[facility] Surgical Services Appointment Type:Surgery FT [facility] [place] Evaluation + Plan note Future Appointments Appointment Date:05/12/2022 08:00:00 AM Scheduled Provider:Luiz MORRISON MD Location:[facility] Appointment Type:URO Office Visit Appointment Date:06/25/2022 12:30:00 PM Scheduled Provider: Location:[facility] Surgical Services Appointment Type:Surgery FT [facility] Evaluation + Plan note Future Appointments Appointment Date:06/24/2022 12:30:00 PM Scheduled Provider: Location:[facility] Surgical [facility] Appointment Type:Surgery FT Appointment Date:08/11/2022 10:30:00 AM Scheduled Provider:Luiz MORRISON MD Location:[facility] Appointment Type:URO Office Visit [facility] Evaluation + Plan note Future Appointments Appointment Date:08/11/2022 10:30:00 AM Scheduled Provider:Luiz MORRISON MD Location:[facility] Appointment [facility]O [facility] Future Appointments Appointment Date:11/03/2022 03:00:00 PM Scheduled Provider:Luiz MORRISON MD Location:[facility] Appointment Type[facility]O [facility] Future Appointments Appointment Date:06/15/2023 01:15:00 PM Scheduled Provider:Luiz MORRISON MD [facility] Appointment Type:URO Office Visit Diagnostic Tests Pending * PSA Total 11/03/22 [facility] Evaluation + Plan note Future Appointments Appointment Date:06/15/2023 01:15:00 PM Scheduled Provider:Luiz MORRISON MD Location:[facility] Appointment Type:URO Office Visit Diagnostic Tests Pending * PSA Total [facility] Future Appointments Appointment Date:06/20/2024 01:00:00 PM Scheduled Provider:Luiz MORRISON MD Location:[facility] Appointment Type:URO Office Visit Diagnostic Tests Pending * PSA Total 06/15/23 [facility] Evaluation + Plan note Future Appointments Appointment Date:06/20/2024 01:00:00 PM Scheduled Provider:Luiz MORRISON MD Location:[facility] Appointment Type:URO [facility] assessment information available [facility] Work Phone: Evaluation note* Diagnosis Epiretinal membrane (ERM) of both eyes- Primary Floppy eyelid syndrome of both eyes Combined forms of age-related cataract of both eyes Other and combined forms of senile cataract Posterior vitreous detachment of both eyes Vitreous degeneration Vitreous floaters of both eyes [facility] Diagnosis Essential hypertension Unspecified essential hypertension Non-ischemic cardiomyopathy (CMS/HCC) Other primary cardiomyopathies Hyperlipidemia, unspecified hyperlipidemia type Obstructive sleep apnea, adult Morbid obesity with BMI of 40.0-44.9, adult ([facility]) documented in this encounter [facility] Work Phone: Evaluation note* Diagnosis Onset Date Resolution Status Hypertension acute Sleep apnea with use of cont inuous positive airway pressure (CPAP) acute Hypertension acute Sleep apnea with use of cont inuous positive airway pressure (CPAP) acute [facility] Work Phone: Evaluation note* Diagnosis Acute deep vein thrombosis (DVT) of distal vein of right lower extremity (CMS/HCC)- Primary 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 Cardiomyopathy, unspecified type (CMS/HCC) PVD (peripheral vascular disease) ([facility]/HCC) Unspecified peripheral vascular disease Essential hypertension (CMS/HCC) Unspecified essential hypertension BMI 40.0-44.9, adult (CMS/HCC) Morbid obesity (CMS/HCC) Morbid obesity documented in this encounter [facility]Evaluation note* Diagnosis Epiretinal membrane (ERM) of both eyes- Primary Floppy eyelid syndrome of both eyes Combined form of age-related cataract, both eyes Benign prostatic hyperplasia without lower urinary tract symptoms Anxiety disorder, unspecified type Essential hypertension Unspecified essential hypertension Mixed hyperlipidemia Obstructive sleep apnea syndrome Obstructive sleep apnea (adult) (pediatric) documented in this encounter [facility] Diagnosis Onychomycosis- Primary Dermatophytosis of nail Pain in left toe(s) Pain in right toe(s) documented in this encounter [facility] HealthcareEvaluation note* Diagnosis Primary hypertension (CMS/HCC) Unspecified essential hypertension Seasonal allergies Allergic rhinitis, cause unspecified documented in this encounter [facility] HealthcareHistory general Narrative - Reported* Type Description Date Medical History CARDIOMYOPATHY Medical History HYPERTENSION Medical History HYPOKALEMIA Medical History HYPERLIPIDEMIA Medical History FATTY LIVER Medical History ASTHMA Medical History SLEEP APNEA Medical History DEPRESSION Medical History RESTLESS LEG SYNDROME Surgical History HEMMRHOIDECTOMY 1990 Surgical History ANGIOGRAM [facility] Other Hospital course Narrative No data available for this section [facility] Hospital Discharge instructions No data available for this section [facility] No data available for this section [facility] (narrative)* Consultation (Routine) - Authorized Specialty Diagnoses / Procedures Referred By Contac t Referred To Contact Cardiology Diagnoses Essential hypertension Non-ischemic cardiomyopathy (CMS/HCC) Procedures Follow Up In Cardiology Delores Ac MD [address] [facility] 2, [address] [address] Delores Ac MD [address], [address] [address] Referral ID Status Reason Start Date Expiration Date V isits Requested Visits Authorized [id number] Authorized 09/30/2023 09/29/2024 1 1 [facility] Work Phone: Summary Purpose Family History [...] on CPAP machine * Delores Ac MD, [facility] PHU LOPEZ is being seen for an annual follow-up of.* PHU LOPEZ is being seen for an annual follow-up of. * Patient is in the office for follow-up for the problems noted below. 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 He reports no symptoms of dyspnea [...] been very compliant * Delores Ac MD, [facility] * PHU LOPEZ is being seen for [...] section and content) DATE CREATED AUTHOR 05/19/2018 [facility] DATE CREATED AUTHOR AUTHOR'S ORGANIZ ATION 03/14/2021 [facility] DATE CREATED AUTHOR AUTHOR'S ORGANIZ ATION 09/29/2022 [facility] DATE CREATED AUTHOR AUTHOR'S ORGANIZ ATION 09/29/2022 [facility] DATE CREATED AUTHOR AUTHOR'S ORGANIZ ATION 02/24/2023 [facility] DATE CREATED AUTHOR AUTHOR'S ORGANIZ ATION 04/17/2024 [facility] DATE CREATED AUTHOR AUTHOR'S ORGANIZ ATION 05/27/2024 [facility] DATE CREATED AUTHOR AUTHOR'S ORGANIZ ATION 06/01/2024 [facility] DATE CREATED AUTHOR AUTHOR'S ORGANIZ ATION 06/03/2024 [facility] DATE CREATED AUTHOR AUTHOR'S ORGANIZ ATION 06/04/2024 [facility] EPIC <item> Privacy Markings (unrecogniz [...] Active Burak Rangel MD Attending Provider Active Pega Developer Relationship Specialty Start Date End Date Terri Santos DO [address] [place] [address] PCP - General Family Medicine 04/11/18 Pega Developer Relationship Specialty Start Date End Date Terri Santos DO [address] [place] [id number] PCP - General 09/11/20 Team Status: Inactive [...] May 07, 2024 End: May 07, 2024 Pega Developer Relationship Specialty Start Date End Date Terri Snatos DO PCP - [facility] [place] [facility] 08/08/09 08/07/99 Liliana Waller MD [address] [place] [address] PCP - General Family Medicine 03/26/24 Pega Developer Relationship Specialty Start Date End Date Terri Santos DO PCP - [facility] [place] [facility] 08/08/09 08/07/99 Liliana Waller MD [address] [place] [address] PCP - General Family Medicine 03/26/24 Pega Developer Relationship Specialty Start Date End Date Terri Santos DO [address] [place] [address] PCP - General Family Medicine 04/11/18 Jordyn Zhu OD [address] [place] [address] Referring Optometry 05/27/23 Pega Developer Relationship Specialty Start Date End Date Terri Santos DO PCP - [facility] [place] [facility] 08/08/09 08/07/99 Liliana Waller MD [address] [place] [address] PCP - General Family Medicine 03/26/24 Pega Developer Relationship Specialty Start Date End Date TomTerri PCP - [facility] [place] [facility] 08/08/09 08/07/99 Liliana Waller MD [address] [place] [address] PCP - General Family Medicine 03/26/24 Goals (unrecognized section and content) Goals may be documented in a n alternate section REASON FOR VISIT (unrecogniz ed section and content) Reason Comments Epiretinal Membrane Follow Up Both eyes Reason Comments Follow-up 1yr Reason Comments Follow-up Reason Comments Epiretinal Membrane Follow Up Both eyes Reason Comments Toenail Care Non DM nail care Reason Onset Date Comments Med Refill 06/13/2024 Source Comments (unrecognize d section and content) In the event this informatio n is protected by the Federal Confidentiality of Alcohol and Drug Abuse Patient Records regulations: The Federal rules restrict any use of the information to criminally investigate or prosecute any alcohol or drug abuse patient.[facility] the event this information is protected by the Federal Confidentiality of Alcohol and Drug Abuse Patient Records regulations: The Federal rules restrict any use of the information to criminally investigate or prosecute any alcohol or drug abuse patient.[facility] FOR RECORDS PERTAINING TO PATIENTS [...] BE BASED ON THE PRIMARY CLINICAL RECORDS. [facility]. provides no warranty or guarantee of the accuracy or completeness of information in this document.
[2024-06-15 12:41] VITALS: BP 146/68; PULSE 76; O2SAT 99
== END 2024-06-15 12:51 | disposition home or self-care (01) ==
LOC: VC 12:30
PROVIDERS: PCP Radiology Diagnostic Radiology; Visit Provider Radiology Diagnostic Radiology
DX: I83.813 Varicose veins of bilateral lower extremities with pain (principal)
CPT/HCPCS: 36478

== ENCOUNTER 2024-06-22 07:25 | Outpatient (OUT) | payer OTHER, SELFPAY ==
--- NOTE | 2024-06-22 07:31 | VEIN_ITS ---
Patient Name: RACHEL NGUYEN MR#: [id number] : 1955 Exam Date: 06/22/2024 Ordering Doctor: DR LUIS MALIK M.D. RADIOLOGY REPORT PROCEDURE: VC EXT VENOUS RT LMTD COMPARISON: VC EXT VENOUS RT LMTD, 05/11/2024. INDICATIONS: I80.01 - Phlebitis and thrombophlebitis of superficial ve... TECHNIQUE: Lower extremity niño scale and Duplex Doppler evaluation of the deep venous system from the inguinal ligament through the calf veins. FINDINGS: REGION: Right lower extremity. THROMBI: Negative for DVT. Heat induced thrombus visualized arising at proximal SSV and extending through distal SSV. COMPRESSIBILITY: Non-compressible segments corresponding to thrombus FLOW: Areas of no flow corresponding to thrombus OTHER: CONCLUSION: 1. Successful post ablation occlusion of right small saphenous vein. Dictated by: Rahul Pedro M.D. on 06/22/2024 at 08:08 Approved by: Rahul Pedro M.D. on 06/22/2024 at 08:09
--- NOTE | 2024-06-22 07:31 | VEIN_ITS ---
Patient Name: RACHEL NGUYEN MR#: [id number] : 1955 Exam Date: 06/22/2024 Ordering Doctor: DR LUIS MALIK M.D. RADIOLOGY REPORT PROCEDURE: [facility] EST LMTD [facility] - OFFICE VISIT FOLLOW UP [facility] PROGRESS NOTES: The patient reports improvement in leg symptoms. There has been interval reduction in varicosities. The patient has followed our recommendations to walk 20-30 minutes once or twice per day since the procedure. Physical exam demonstrates decrease in varicosities of the leg. Persistent lower extremity swelling and varicose veins are identified along the lower legs. Review of the ultrasound performed the same day demonstrates occlusive thrombus extending throughout the treated vein(s), see separate report, consistent with a successful ablation. No thrombus extending into or beyond the saphenofemoral junction. The patient expressed a desire to proceed with treatment of remaining incompetent varicosities. The patient was informed that treatment was a process and would require several procedures/sessions. [facility]: 1. Successful ablation of the right small saphenous vein(s). 2. Persistent varicose veins and lower extremity symptoms. PLAN: 1. Endovenous laser ablation of left anterior accessory saphenous vein. Nurse notes, history and physical were reviewed and confirmed, see attached forms. The nurse was present throughout the physical exam and consultation Dictated by: Rahul Pedro M.D. on 06/22/2024 at 08:09 Approved by: Rahul Pedro M.D. on 06/22/2024 at 08:12
--- OUTSIDE RECORDS SUMMARY | 2024-06-22 07:35 | XMS_ITS | CCD ---
Author Organization [facility] Providers Care Ordnance Mechanic Name Role Phone Mecca Nelsonaret Unavailable Unavailable Omar Danyell Unavailable Unavailable [facility] Unavailable Unavailable Omar Danyell Unavailable Unavailable Mecca Nelsonaret Unavailable Unavailable Terri Santos Unavailable Unavailable Terri Santos Unavailable Chriss Marie Unavailable Unavailable Terri Santos Unavailable Unavailable Unavailable Terri Santos Primary Care Physician [phone] MD Terri Santos Primary Care Provider MD Luiz Morrison Attending Provider [phone] MD Burak Rangel Attending Provider Burak Rangel [...] Admitting Unavailable Luiz Morrison Attending Unavailable AllsoTerri greene Primary Care Unavailable Luiz Morrison Admitting Unavailable Luiz Morrison Attending Unavailable AllsoTerri greene Primary Care Unavailable Burak Rangel Admitting Unavailable Burak Rangel Attending Unavailable Terri Santos Primary Care Unavailable MD Terri Santos Primary Care Provider MD Burak Rangel Attending Provider Allsop Terri STONE Primary Care Provider DELORES AC Attending Unavailable ALLTERRI BENEDICT Primary Care Unavailab le Allsop DO, Terri Pfeiffer Unavailable UnavailLiliana Pond MD Primary Care Provider Liliana Waller Primary Care Physician Luiz MORRISON Attending Unavailable Luiz MORRISON Admitting Unavailable AllsoTerri greene DO Primary Care Provider Jordyn Zhu OD Unavailable TERRI SANTOS Primary Care Unavailab JOSSELIN Keen Referring Unavailable DECKERJOSSELIN KAUFMAN Attending Unavailable DOLADAM HOLLINS Attending Unavailable ALLSOP, TERRI Pfeiffer Attending Unavailable DOLCEADAM Attending Unavailable ALLSOP, TERRI Pfeiffer Attending Unavailable ALLSOP, TERRI Pfeiffer Attending Unavailable DOLCEADAM Attending Unavailable DOLADAM HOLLINS Attending Unavailable GUNNAR ADLER Attending Unavailable LILIANA WALLER Attending Unavailable DOLADAM HOLLINS Attending Unavailable Allsop, Terri D Referring Unavailable Allsop, Terri Margarette Admitting Unavailable Allsop, Terri Pfeiffer Attending Unavailable MORRISONLuiz Admitting Unavailable Luiz MORRISON Attending Unavailable Allsop, Terri Pfeiffer Attending Unavailable Allsop, Terri Pfeiffer Admitting Unavailable Luiz MORRISON Attending Unavailable Allergies Allergy Classification Reported Allergen(s) Allergy Type Date of Onset Reaction(s) Facility Macrolides (antibiotic) (1 source) Clarithromycin Drug Allergy Unknown [facility] (1 source) No Known Medication Allergies; Translations: [No Known Medication Allergies] Propensity to adverse reactions to drug (disorder) [facility] (9 sources) shellfish, unspecified Allergy to substance (finding) -[facility] [facility] DO Work Phone: (16 sources) Clarithromycin; Translations: [clarithromycin] Drug Allergy Unknown [facility] [place] (2 sources) Shellfish; Translations: [SHELLFISH CONTAINING PRODUCTS] Drug Allergy 3 [facility] (2 sources) Shellfish; Translations: [SHELLFISH DERIVED] Propensity to adverse reactions 4 Other [facility] (6 sources) Clarithromycin Allergy to substance 3 Unknown [facility] Work Phone: Medications Current Medications Medication Drug Class(es) Dates Sig (Normalized) Sig (Original) acetaminophen 325 mg / HYDROcodone bitartrate 7.5 mg oral tablet (2 sources) Opioid Agonist Start: 02-12-2022 take 1 tablet by mouth once [place] 325 mg-7.5 mg oral tablet 1 tab(s), Oral, Once, 1 tab(s), Refill(s) 0, Take 1 hour prior to procedure. Don't drive or operate machinery while taking this medication., [facility], 178, cm, 12/22/21 8:18:00 EDT, Height/Length Dosing, 137.1, kg, 12/22/21 8:17:00 EDT,... Start Date: 02/12/22 Status: Ordered aMILoride hydrochloride 5 mg oral tablet (20 sources) Potassium-sparin g Diuretic Start: 04-13-2022 take 5 mg by mouth twice daily Amiloride Active 5 MG PO Twice daily April 13, 2022 12:00am Start: 06-27-2019 take 2 tablets by mo [facility] once daily aMILoride (MIDAMOR) 5 mg tablet [...] sources) Dihydropyridine Calcium Channel Jonathan Start: 06-13-20 take 1 tablet by mouth once daily amLODIPine (Norvasc) 10 MG tablet Indications: Primary hypertension (CMS/HCC) Take 1 tablet (10 mg) by mouth Daily 30 tablet 1 06/13/2024 Active Start: 05-19-2023 End: 06-13-2024 take 1 tablet by mouth once daily [...] nce daily. apixaban 5 mg oral tablet (8 sources) Factor Xa Inhibitor Start: 06-20-2024 take 1 tablet by mouth twice daily Eliquis 5 mg oral tablet 5 mg = 1 tab(s), Oral, BID Start Date: 06/20/24 Status: Ordered Start: 04-06-2024 take 1 tablet by shelley th in the morning apixaban (Eliquis) 5 MG tablet Indications: Blood clot in vein Take 1 tablet (5 mg) by mouth in the morning and 1 tablet (5 mg) before bedtime. 60 tablet 5 04/06/2024 Active {1 (Ascorbic Acid 7540 MG / POLYETHYLENE GLYCOL 3350 44267 MG / Potassium Chloride 1200 MG / Sodium Ascorbate 42490 MG / Sodium Chloride 3200 MG Powder for Oral Solution) / 1 (POLYETHYLENE GLYCOL 3350 262885 MG / Potassium Chloride 1000 MG / Sodium Chlori (9 sources) Osmotic Laxative, Vitamin C Start: 12-11-2021 take 1 dose by mouth once Plenvu oral powder for reconstitution See Instructions, 1 EA, Refill(s) 0, samples given to patient (Rx), Per physicians instructions prior to colonoscopy Start Date: 12/11/21 Status: Ordered aspirin 325 mg oral tablet (20 sources) Platelet Aggregation Inhibitor, Nonsteroidal Anti-inflammatory Drug Start: 04-13-2022 take 325 mg by mouth once daily [...] Refills: 3 Ordered: 11-May-2022 Valerie Leija Active Carvedilol 12.5 MG Oral Tablet TAKE [...] extended release oral tablet (1 source) Uncompetitive A-roxhur-S-aspartate Receptor Antagonist, Sigma-1 Agonist Start: End: take [...] day(s), # 42 cap(s), Refills(s) 0, Pharmacy: [facility], 178, cm, 11/26/21 12:38:00 EDT, [...] Daily, # 90 tab(s), Refills(s) 3, Pharmacy: [facility], 178, cm, 06/15/23 13:22:00 EST, [...] Start: 11-22-2019 take 1 tablet by shelley once daily loratadine 10 mg Tab 10 [...] End: 06-13-2024 take 1 tablet by mouth once daily [...] Ordered Start: 06-12-[address] [facility] once daily lovastatin (MEVACOR) 20 mg tablet TAKE 1 & 1 2 (ONE & ONE HALF) TABLETS BY MOUTH ONCE DAILY 9 06/12/2019 Active Start: 09-23-2017 take 3 tablets by [facility] once daily lovastatin 10 mg Tab 30 mg = 3 tab(s), Oral, Daily, Refills(s) 0 Start Date: 09/23/17 Status: Ordered take 2 tablets by [facility] every other day lovastatin (Mevacor) 20 [...] Refills: 0 Ordered: 31-Aug-2021 DO Active omega 2-lfo-wal-fish oil 360 mg-108 mg- 180 mg-1,200 mg capsule (1 source) End: 09-30-2023 take 1 capsule by mouth once daily omega 3-aly-phs-fish oil 360 mg-108 mg- 180 mg-1,200 mg capsule Take 1 capsule by mouth once daily. 0 09/30/2023 Discontinued (Other) [place]-3 Fatty Acids (3 sources) Start: 04-13-2022 take 2000 mg by mouth once daily at bedtime [place]-3 Fatty Acids Active 2000 MG PO Daily at bedtime April 13, 2022 12:00am [place]-3 Fatty Acids ([place] 3 Fish Oil) Capsule (2 sources) Start: 04-13-2022 take 1 capsule by mouth once daily at bedtime [place]-3 Fatty Acids ([place] 3 Fish Oil) Capsule Active 2000 MG PO Daily at bedtime April 13, 2022 12:00am PARoxetine hydrochloride 20 mg oral tablet (20 sources) Serotonin Reuptake Inhibitor Start: 09-23-2017 take 1 tablet by mouth once daily paroxetine 20 mg Tab 20 mg = 1 tab(s), Oral, Daily, Refills(s) 0, Depression Start Date: 09/23/17 Status: Ordered Start: 09-23-2017 [facility] paroxetine 20 mg Tab 20 [...] Start: 10-07-2011 take 7 tablets by mo [facility] once daily Klor-Con 10 mEq 70 mEq = 7 tab(s), Oral, Daily, # 210, Refills(s) 0, Prophylaxis Start Date: 10/07/11 Status: Ordered Start: 10-07-2011 take 7 tablets by [facility] once daily Klor-Con 10 mEq 70 mEq = 7 tab(s), Oral, Daily, # 210, Refills(s) 0, Prophylaxis Start Date: 10/07/11 Status: Ordered Start: 10-07-2011 take 7 tablets by [facility] once daily Klor-Con 10 mEq [...] q4wk, # 2 mL, Refills(s) 4, Pharmacy: [facility], 177, cm, 08/28/20 9:27:00 EST, [...] day Quantity: 20 Refills: 0 Ordered: 11-Sep-2020 KartikEmile fitch Start: 11-Sep-2020 End: 20-Sep-2020 Status: Other Generic [...] procedure, # 2 tab(s), Refills(s) 0, Pharmacy: [facility], 178, cm, 11/04/21 10:45:00 EDT, [...] 0 Refills: 0 Ordered: 31-Aug-2021 DO Active [place]-3 CAPS (8 sources) [place]-3 CAPS LADONNA E DIRECTED. Quantity: 0 Refills: [...] 02-21-2020 Episodic Genitourinary symptoms and ill-defined conditions (19 sources) Urge incontinence; Translations: [Urge incontinence of urine] Onset: 2 Chronic Genitourinary symptoms and ill-defined conditions (20 sources) Blood in urine; Translations: [Gross hematuria] Onset: 2 Episodic Glaucoma (2 sources) Ocular hypertension; Translations: [Ocular hypertension, bilateral] Onset: 8 04-12-2018 Chronic Hemorrhoids (11 sources) Thrombosed external hemorrhoids 04-25-2022 Episodic Hyperplasia [...] pedis] Onset: 3 03-13-2019 Episodic Other aftercare (3 sources) Long-term current use of anticoagulant; Translations: [tank terminal gauger (current) use of anticoagulants] Onset: 4 05-10-2024 Episodic Other and ill-defined heart disease (20 sources) Heart disease 11-04-2021 Chronic Other diseases of kidney and ureters (4 sources) Urinary tract obstruction; Translations: [Other obstructive and reflux uropathy] Onset: 2 Episodic Other endocrine disorders (20 sources) Male hypogonadism; Translations: [Testicular hypofunction] Onset: 3 11-06-2020 Chronic Other endocrine disorders (2 sources) Hypogonadotropic hypogonadism; 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 Other endocrine disorders (1 source) Testicular hypofunction; Translations: [Testicular hypofunction] Onset: 4 Chronic Other eye disorders (1 source) Bilateral [...] Chronic Other nutritional; endocrine; and metabolic disorders (15 sources) Body mass index 30+ - obesity [...] Onset: 3 12-08-2021 Episodic Residual codes; unclassified (2 sources) H/O: Disorder; Translations: [Personal history of other specified conditions] Onset: 3 Episodic Retinal detachments; defects; vascular occlusion; and retinopathy (3 sources) Bilateral epiretinal membrane of eyes; Translations: [Puckering of macula, bilateral] Onset: 1 Resolved: 2 Chronic Thyroid disorders (20 sources) Hypothyroidism; Translations: [Hypothyroidism, unspecified] Onset: 3 Resolved: 3 05-22-2020 Chronic Unclassified (20 sources) Patient encounter status 12-11-2021 Unclassified (1 source) Benign prostatic hyperplasia with lower urinary tract symptoms; Translations: [Benign prostatic hyperplasia with lower urinary tract symptoms] Onset: 2 Unclassified (1 source) Encounter for preprocedural laboratory examination; Translations: [Encounter for preprocedural laboratory examination] Onset: 2 Unclassified (5 sources) History of clinical finding in subject 06-15-2023 Unclassified (1 source) Drug therapy finding 06-20-2024 Past or Other Problems Problem Classification Problem [...] Onset: 01-04-2023 01-04-2023 Episodic Other skin disorders (6 sources) Skin [...] FUNDUS PHOTOS OU (BOTH EYES) on 06-01-2024 [facility] Radiology Study observation (narrative) [facility] OCT MACULA CIRRUS OU (BOTH E YES)on 06-01-2024 [facility] Radiology Study observation (narrative) [facility] CHEMISTRYOrdered By: SYSTEM SYSTEM on 05-25-2024 Prostate specific Ag [Mass/Vol] 0.6 ng/mL Normal 0.1 - 3.5 ng/mL [facility] Comment on above: Interpretive Data: T he concentration of PSA determined by different manufacturers can vary due to differences in assay methods and reagent specificity. Values obtained from different assay methods cannot be used interchangeably. The methodology used for this result was chemiluminescence using [employer] Hybr[employer] PSA reagent. PSA Totalon 05-25-2024 Prostate specific Ag [Mass/Vol] 0.6 ng/mL Normal 0.1-3.5 [facility] Comment on above: Result Comment: The concentration of PSA determined by different manufacturers can vary due to differences in assay methods and reagent specificity. Values obtained from different assay methods cannot be used interchangeably. The methodology used for this result was chemiluminescence using [employer] Hybr[employer] PSA reagent. Performed By: #### 1 [id number] #### [facility] [address] [place] [address] US LE Venous Duplex Righton 11-29-2023 US [...] Kitchen M.D. Transcribed by: REGLA Technologist: HW [facility] Consent for Treatmenton 11-06 Consent for Treatment [id number] 0TIFF Normal [facility] Physician Orderon 11-18-2023 Physician Order [id number] 0TIFF [facility] CBC w/ Auto Diffon 4 Basophils/100 WBC (Bld) 0.8 % Normal 0.0-2.0 [facility] Comment on above: Performed By: #### 2 018053, [id number], 1944991, 4400926 #### [facility] [address] [place] [address] 65896 Basophils/Leukocytes Auto (Bld) [Pure # fraction] 0.1 E9/L Normal 0.0-0.2 [facility] Comment on above: Performed By: #### 2 163102, [id number], 0123509, 1698692 #### [facility] [address] [place] [address] 07785 Eosinophils (Bld) [#/Vol] 0.3 E9/L Normal 0.0-0.5 [facility] Comment on above: Performed By: #### 2 895290, 35555562, 3308500, 2133800 #### [facility] [address] [place] [address] 84513 Eosinophils/100 WBC (Bld) 3.4 % Normal 0.0-8.0 [facility] Comment on above: Performed By: #### 2 866503, 91101655, 8038873, 1722801 #### [facility] [address] [place] [address] 65851 Erythrocyte distribution width (RBC) [Ratio] 13.6 % Normal 10.9-14.2 [facility] Comment on above: Performed By: #### 2 790547, 84729364, 3480632, 3513274 #### [facility] [address] [place] [address] 35045 Hematocrit (Bld) [Volume fraction] 39.9 % Normal 37.7-49.0 [facility] Comment on above: Performed By: #### 2 117058, 16369223, 2828554, 9739680 #### [facility] [address] [place] [address] 26489 Hemoglobin (Bld) [Mass/Vol] 13.7 g/dL Normal 13.5-17.5 [facility] Comment on above: Performed By: #### 2 875041, 99252962, 7731876, 5964684 #### [facility] [address] [place] [address] 34347 Lymphocytes (Bld) [#/Vol] 1.5 E9/L Normal 1.0-4.0 [facility] Comment on above: Performed By: #### 2 371481, 44096491, 2875191, 0409931 #### [facility] [address] [place] [address] 89798 Lymphocytes/100 WBC (Bld) 20.2 % Normal 14.0-50.0 [facility] Comment on above: Performed By: #### 2 105702, 62018134, 8183311, 0990818 #### [facility] [address] [place] [address] 32265 MCH (RBC) [Entitic mass] 30.4 pg Normal 27.0-34.0 [facility] Comment on above: Performed By: #### 2 530303, 39901461, 9105531, 2980500 #### [facility] [address] [place] [address] 48982 MCHC (RBC) [Mass/Vol] 34.3 g/dL Normal 31.4-36.0 [facility] Comment on above: Performed By: #### 2 556016, 78732502, 0790941, 1747701 #### [facility] [address] [place] [address] 00097 MCV (RBC) [Entitic vol] 88.6 fL Normal 80.0-100.0 [facility] Comment on above: Performed By: #### 2 138563, 47117398, 6510396, 3193855 #### [facility] [address] [place] [address] 37000 Monocytes (Bld) [#/Vol] 0.7 E9/L Normal 0.2-1.0 [facility] Comment on above: Performed By: #### 2 875450, 08209812, 8911071, 5284045 #### [facility] [address] [place] [address] 45947 Neutrophils (Bld) [#/Vol] 5.0 E9/L Normal 2.0-7.5 [facility] Comment on above: Performed By: #### 2 932728, 42850093, 7115962, 2946175 #### [facility] [address] [place] [address] Neutrophils/100 WBC (Bld) 66.1 % Normal 36.0-75.0 [facility] Comment on above: Performed By: #### 2 794192, 02396683, 4237223, 5367126 #### [facility] [address] [place] [address] Platelet mean volume (Bld) [Entitic vol] 9.1 fL Normal 6.4-10.8 [facility] Comment on above: Performed By: #### 2 040905, 75498139, 5876273, 4955171 #### [facility] [address] [place] [address] 72492 Platelets (Bld) [#/Vol] 216.0 E9/L Normal 150.0-500.0 [facility] Comment on above: Performed By: #### 2 122201, 31049814, 3294846, 1909315 #### [facility] [address] [place] [address] 07051 RBC (Bld) [#/Vol] 4.5 E12/L Normal 4.3-5.9 [facility] Comment on above: Performed By: #### 2 428414, 44699604, 0546129, 4352521 #### [facility] [address] [place] [address] 09522 WBC corrected for nucl RBC Auto (Bld) [#/Vol] 7.5 E9/L Normal 4.0-11.0 [facility] Comment on above: Performed By: #### 2 672103, 11234417, 0157026, 2613376 #### [facility] [address] [place] [address] 69566 CHEMISTRYOrdered By: SYSTEM SYSTEM on 10-21-2023 Albumin [...] 10-21-2023 Albumin [Mass/Vol] 4.3 g/dL Normal 3.3-5.0 [facility] Comment on above: Performed By: #### 2 611304, 83050607, 6806620, 2167762 #### [facility] [address] [place] [address] Albumin/Globulin (S) [Mass conc ratio] 1.7 Normal 1.1-2.2 [facility] Comment on above: Performed By: #### 2 467275, 09035083, 2607203, 9611670 #### [facility] [address] [place] [address] ALP [Catalytic activity/Vol] 66 Int._Unit/L Normal 21-98 [facility] Comment on above: Performed By: #### 2 702157, 80538805, 2748642, 1362799 #### [facility] [address] [place] [address] ALT No additional P-5'-P [Catalytic activity/Vol] 17 Int._Unit/L Normal 6-46 [facility] Comment on above: Performed By: #### 2 982220, 83846339, 7022162, 7246243 #### [facility] [address] [place] [address] Anion gap [Moles/Vol] 13 mmol/L Normal 6-16 [facility] Comment on above: Performed By: #### 2 028068, 21258679, 0647110, 8706774 #### [facility] [address] [place] [address] AST [Catalytic activity/Vol] 17 Int._Unit/L Normal 5-43 [facility] Comment on above: Performed By: #### 2 279434, 41177049, 4937844, 0983103 #### [facility] [address] [place] [address] Bilirubin [Mass/Vol] 0.9 mg/dL Normal 0.0-1.1 [facility] Comment on above: Performed By: #### 2 218859, 92831231, 9519632, 8763961 #### [facility] [address] [place] [address] Calcium [Mass/Vol] 8.7 mg/dL Low 8.9-11.1 [facility] Comment on above: Performed By: #### 2 260380, 76455787, 3041440, 7946457 #### [facility] [address] [place] [address] Chloride [Moles/Vol] 104 mmol/L Normal 101-111 [facility] Comment on above: Performed By: #### 2 579951, 01009871, 5985201, 5724993 #### [facility] [address] [place] [address] CO2 [Moles/Vol] 27 mmol/L Normal 21-31 [facility] Comment on above: Performed By: #### 2 237622, 74210078, 2802602, 4040096 #### [facility] [address] [place] [address] Creatinine [Mass/Vol] 0.6 mg/dL Normal 0.5-1.3 [facility] Comment on above: Performed By: #### 2 867456, 78052128, 9178321, 0899189 #### [facility] [address] [place] [address] Globulin (S) [Mass/Vol] 2.6 g/dL Normal 1.4-4.0 [facility] Comment on above: Performed By: #### 2 186396, 50086970, 0066670, 2363106 #### [facility] [address] [place] [address] Glucose [Mass/Vol] 94 mg/dL Normal 55-199 [facility] Comment on above: Performed By: #### 2 875372, 55138571, 0983572, 3799203 #### [facility] [address] [place] [address] Potassium [Moles/Vol] 3.4 mmol/L Low 3.5-5.3 [facility] Comment on above: Performed By: #### 2 523293, 52240944, 7610698, 2594978 #### [facility] [address] [place] [address] Protein [Mass/Vol] 6.9 g/dL Normal 6.0-7.8 [facility] Comment on above: Performed By: #### 2 603028, 63299113, 9331595, 2535316 #### [facility] [address] [place] [address] Sodium [Moles/Vol] 141 mmol/L Normal 135-145 [facility] Comment on above: Performed By: #### 2 625868, 11176639, 9509898, 8570868 #### [facility] [address] [place] [address] Urea nitrogen [Mass/Vol] 9 mg/dL Normal 5-21 [facility] Comment on above: Performed By: #### 2 540084, 86220601, 7820246, 8332063 #### [facility] [address] [place] [address] Urea nitrogen/Creatinine [Mass ratio] 15 No Units Normal 10-20 [facility] Comment on above: Performed By: #### 2 779747, 53239745, 5404637, 8663308 #### [facility] [address] [place] [address] Consent for Treatmenton 10-06 Consent for Treatment [id number] 0TIFF Normal [facility] HEMATOLOGYOrdered By: SYSTEM SYSTEM on 10-21-2023 [...] 10-21-2023 Cholesterol [Mass/Vol] 172 mg/dL Normal 120-200 [facility] Comment on above: Performed By: #### 2 952515, 52828010, 9354274, 8010242 #### [facility] [address] [place] [address] Cholesterol in HDL [Mass/Vol] 32 mg/dL Invalid Interpretation Code [facility] Comment on above: Result Comment: '>= 60 LOW RISK' '<= 40 HIGH RISK' Performed By: #### 2 638259, 99150391, 5158549, 8814859 #### [facility] [address] [place] [address] Cholesterol in LDL [Mass/Vol] 107 mg/dL Normal <=129 [facility] Comment on above: Performed By: #### 2 364932, 53221181, 2294911, 0823892 #### [facility] [address] [place] [address] Cholesterol in VLDL [Mass/Vol] 38 mg/dL Normal 7-40 [facility] Comment on above: Performed By: #### 2 533885, 90189076, 9632938, 9465837 #### [facility] [address] [place] [address] Triglyceride [Mass/Vol] 192 mg/dL High <=149 [facility] Comment on above: Performed By: #### 2 687564, 54195809, 4610297, 4475945 #### [facility] [address] [place] [address] Physician Orderon 10-21-2023 Physician Order [id number] Normal [facility] eGFRon 10-21-2023 eGFR 105 mL/min/1.73 m2 Normal >=59 [facility] [facility] Comment on above: Order Comment: Order added by Discern Expert. Performed By: #### 2 [id number], [id number] #### [facility] [address] [place] [address] CHEMISTRYOrdered By: SYSTEM SYSTEM on 09-29-2022 Anion gap [Moles/Vol] 11 mmol/L Normal 6 - 16 mEq/L [facility] Calcium [Mass/Vol] 8.9 mg/dL Normal 8.9 - 11. 1 mg/dL [facility] Chloride [Moles/Vol] 101 mmol/L Normal 101 - 1 11 mmol/L [facility] Creatinine [Mass/Vol] 0.7 mg/dL Normal 0.5 - 1.3 mg/dL [facility] Remisol GFR/1.73 sq M.predicted among blacks MDRD (S/P/Bld) [Vol rate/Area] mL/min/1.73 m2 Normal >=59mL/min/ 1.73 m2 [facility] Chem S GFR/1.73 sq M.predicted among non-blacks MDRD (S/P/Bld) [Vol rate/Area] mL/min/1.73 m2 Normal >=59mL/min/ 1.73 m2 [facility] Chem S Glucose [Mass/Vol] 107 mg/dL Normal 55 - 199 mg/dL [facility] Potassium [Moles/Vol] 3.8 mmol/L Normal 3.5 - 5.3 mmol/L [facility] Sodium [Moles/Vol] 136 mmol/L Normal 135 - 145 mmol/L [facility] Urea nitrogen [Mass/Vol] 17 mg/dL Normal 5 - 21 mg/dL [facility] Remisol Urea nitrogen/Creatinine [Mass ratio] 24 mg/mg High 10 - 20 [facility] Laboratory - Chemistry and C hemistry - challengeOrdered By: SYSTEM SYSTEM on 09-29-2022 CO2 [Moles/Vol] 28 mmol/L Normal 21 - 31 mmol/L [facility] Remisol Laboratory - Hematology and Cell countsOrdered By: Leonid Leiva on 09-29-2022 HbA1c (Bld) [Mass fraction] 5.8 % Normal <=5.9% [facility] ChemAutoSS No Panel Informationon 09-29 11 {mEq/L} Normal 6-16 [facility] Work Phone: [phone] 101 mmol/L Normal 101-111 [facility] DO Work Phone: [phone] 3.8 mmol/L Normal 3.5-5.3 [facility] DO Work Phone: [phone] 136 mmol/L Normal 135-145 [facility] steven 600 DO Work Phone: [phone] 8.9 mg/dL Normal 8.9-11.1 [facility] Work Phone: [phone] 24 {No_Units} above high threshold 10-20 [facility] Work Phone: [phone] 0.7 mg/dL Normal 0.5-1.3 [facility] Work Phone: [phone] 17 mg/dL Normal 5-21 [facility] DO Work Phone: [phone] 107 mg/dL Normal 55-199 [facility] DO Work Phone: Comment on above: If this glucose resu lt represents a fasting glucose, interpretation should refer to the following reference range: 55-99 mg/dL >60 Normal >=59 [facility] Work Phone: Comment on above: eGFR is race adjuste d. AA=. Chronic kidney disea se could be indicated at eGFR's of less than 60 mL/min/1.73m2. Kidney failure is indicated at less than 15 mL/min/1.73m2. Falls Screening (Age 18+)on 09-28-2022 Fall risk assessment a) No falls within the last year [facility] steven Bean DO Work Phone: Office Visit (Cardiology)on 09-28-2022 Follow-up visit Diagnoses/Problems Assessed Essential hypertension (401.9) (I10) Morbid obesity with BMI of 40.0-44.9, adult (278.01,V85.41) (E66.01,Z68.41) Orders Essential hypertension, Hyperlipidemia, Morbid obesity with BMI of 40.0-44.9, adult, Screening for diabetes mellitus Hemoglobin A1C; Status:Active - Retrospective Authorization; Requested for:[id number]; Essential hypertension, Non-ischemic cardiomyopathy Basic Metabolic Panel; Status:Active - Retrospective Authorization; Requested for:[id number]; Hyperlipidemia, Screening for diabetes mellitus Glucose, Fasting; Status:Active - Retrospective Authorization; Requested for:[id number]; Chief Complaint PHU LOPEZ is being seen [...] DAILY. Multi-Vitamin Oral TabletTAKE 1 TABLET DAILY. [place]-3 [place] DIRECTED. 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 He reports no symptoms of dyspnea [...] has been very compliant Delores Ac MD, [facility] Surgical History Problems History of [...] DAILY. Multi-Vitamin Oral TabletTAKE 1 TABLET DAILY. [place]-3 CAP[place]KE DIRECTED. PARoxetine HCl - 20 MG [...] Recorded: 10Sep2022 10:02AM Heart Rate88, L Radial Ygarsknd928, RUE, Sitting Grpfqlpcb98, RUE, Sitting Height5 ft 10 in Apcamk487 lb BMI Xhvhlrhtkv29.32 kg/m2 BSA Calculated2.44 Tobacco Useb) No PHQ-2 #1. Over the last 2 weeks have you felt down, depressed or hopeless? (If yes, answer PHQ-9 below)No PHQ-2 #2. Over the last 2 weeks have you felt little i (more content not included)... Normal [facility] Screening.on 023 Adult depression screening assessment No [facility] [employer] DO Work Phone: Fall risk assessment a) No falls within the last year [facility] [employer] 600 DO Work Phone: Tobacco use status CP b) No M [facility] [employer] DO Work Phone: Chay 04-27-2022 L -- ---- Specimen: [id number] Received: 04/27/22 Status: HALLIE [place] Num: [id number] Spec Type: Surgical Subm Dr: Luiz Morrison MD Tissues: A Prostate - Tur (PROSTATE TURP) Procedures: HE Stain/8, Gross/Micro L4 ---- Age/ Patient Sex Location Account Attending Physician ---- Phu Lopez 67/M MA [id number] Luiz Morrison MD ---- SPEC NUM: [id number] RECD: 04/27/22 STATUS: HALLIE [place] NUM: [id number] CHAIM: 04/27/[address] [facility] [address]: Luiz Morrison MD ENTERED: 04/27/[address]: SPEC TYPE: Surgical DEPT: S ORDERED: HE Stain/8, Gross/Micro L4 ORDERED: HE Stain/8, Gross/Micro L4 Supplemental Report Addendum 1 Entered: 05/03/22 PIN cocktail immunohistochemical study has been performed on block A1. No definite evidence of malignancy identified on the area of concern. [id number] Addendum Signed (signature on file) Landon Perez [...] result will follow supplement report. ---- Specimen: [id number] Received: 04/27/22120 Status: [facility] Num: [id number] Spec Type: Surgical Subm Dr: Luiz Morrison MD Tissues: A Prostate - Tur (PROSTATE TURP) Procedures: HE Stain/8, Gross/Micro L4 ---- Patient: Phu Lopez [id number] (Continued) ---- Specimen: [id number] Received: 04/27/22 (Continued) Signed (signature on file) Casa Desai MD (Michelle) 04/30/22 1044 ---- Specimen: [id number] Received: 04/27/22 Status: HALLIE [place] Num: [id number] Spec Type: Surgical Subm Dr: Luiz Morrison MD Tissues: A Prostate - Tur (PROSTATE TURP) Procedures: LISSETH Tavares/[place], Lloyd/Nicanor L4 ---- Patient: Phu Lopez [id number] (Continued) ---- Specimen: [id number] Received: 04/27/22 (Continued) Clinical Information BPH with obstruction Gross Description Received in formalin labeled with the patient's name, number and prostate is a 12 g, 6.5 x 5.0 x 2.5 cm aggregate of mooney-campuzano rubbery tissue fragments.. Entirely submitted in nine cassettes labeled A1-A9. Microscopic Description Nine glass slides with H E stained material have been examined. Pathologist interpretation was performed at [facility]. The microscopic findings support the above pathologic diagnosis. CPT Codes 58060 ---- ---- Specimen: [id number] Received: 04/27/22 Status: HALLIE De Jesusnuno Num: [id number] Spec Type: Surgical Subm Dr: Luiz Morrison MD Tissues: A Prostate - Tur (PROSTATE TURP) Procedures: HE Stain/8, Gross/Micro L4 ---- Patient: Phu Lopez [id number] (Continued) ---- Signed (signature on file) Casa Desai MD (Michelle) 04/30/22 1044 Normal [facility] [place] [place] SARS-CoV-2 (COVID-19) RNA MARY+probe Ql (Unsp spec) Negative Normal Negative [facility] Comment on above: Order Comment: Healt hcare Worker?: N Result Comment: Testing for SARS-CoV-2 by RT-PCR This test was developed and its performance characteristics determined by [employer] ([place]) and validated at the [facility]. This test has not been FDA [...] is terminated or revoked sooner. PERFORMED BY: [place] [address] PATHOLOGIST STEREOPLOTTER OPERATOR TOI BOWER M.D. Performed By: #### C OVID 19 [facility] #### [address] COVID-19 Positive/NegativeOr dered By: Luiz Morrison on 04-23-2022 SARS-CoV-2 (COVID-19) N gene MARY+probe Ql (Resp) Negative Negative [facility] Comment on above: Testing for SARS-CoV -2 by RT-PCR This test was developed and its performance characteristics determined by [employer] ([place]) and validated at the [facility]. This test has not been FDA [...] aPTT Coag (PPP) [Time] 29.4 s 25.1-36.5 [facility] Basic Metabolic Panelon Anion gap [Moles/Vol] 13.0 mmol/L Normal 6.0-15.0 [facility] Comment on above: Performed By: #### P T, PTT, CBC, BMP #### [facility] [address] Calcium [Mass/Vol] 9.4 mg/dL Normal 8.2-10.2 [facility] Comment on above: Result Comment: PERF ORMED BY: [facility] [address] [place] [address] PATHOLOGIST STEREOPLOTTER OPERATOR TOI BOWER M.D. Performed By: #### P T, PTT, CBC, BMP #### [facility] [address] Chloride [Moles/Vol] 100 mmol/L Normal 95-114 [facility] Comment on above: Performed By: #### P T, PTT, CBC, BMP #### [facility] [address] CO2 [Moles/Vol] 26.6 mmol/L Normal 22.0-30.0 [facility] Comment on above: Performed By: #### P T, PTT, CBC, BMP #### [facility] [address] Creatinine [Mass/Vol] 0.60 mg/dL Low 0.64-1.27 [facility] Comment on above: Performed By: #### P T, PTT, CBC, BMP #### [facility] [address] Estimated GFR ( Pilar > 60 [facility] Comment on above: Result Comment: GFR estimated reference range: According to KDOQI guidelines, <60 ml/min/1.73m2 is sufficient to diagnose a patient with chronic kidney disease. Performed By: #### P T, PTT, CBC, BMP #### [facility] [address] Estimated GFR (Non- Am > 60 Normal [facility] Comment on above: Performed By: #### P T, PTT, CBC, BMP #### [facility] [address] Glucose [Mass/Vol] 112 mg/dL High 70-100 [facility] Comment on above: Result Comment: Fallon om Glucose Reference Range is dependent on time and content of last meal. Glucose of more than 200 mg/dL in a nonstressed, ambulatory subject supports the diagnosis of Diabetes Mellitus. ADA recommended reference range Performed By: #### P T, PTT, CBC, BMP #### [facility] [address] [place] [address] [place] Potassium [Moles/Vol] 3.6 mmol/L Normal 3.5-5.1 [facility] Comment on above: Performed By: #### P T, PTT, CBC, BMP #### [facility] [address] [place] [address] [place] Sodium [Moles/Vol] 136 mmol/L Normal 136-146 [facility] Comment on above: Performed By: #### P T, PTT, CBC, BMP #### [facility] [address] Urea nitrogen [Mass/Vol] 7 mg/dL Low 9-23 [facility] Comment on above: Performed By: #### P T, PTT, CBC, BMP #### [facility] [address] Basophils Auto (Bld) [#/Vol] Ordered By: Luiz Morrison on 04-13-2022 Basophils (Bld) [#/Vol] 0.0 10*3/uL 0.0-0.2 [facility] Basophils/100 WBC Auto (Bld) Ordered By: Luiz Morrison on 04-13-2022 Basophils/100 WBC (Bld) 0.5 % . F [facility] Blood hemoglobin measurement (mass/volume)Ordered By: Luiz Morrison on 04-13-2022 Hemoglobin (Bld) [Mass/Vol] 14.4 g/dL 13.0-17.0 [facility] Blood leukocytes automated c ount (number/volume)Ordered By: Luiz Morrison on 04-13-2022 WBC (Bld) [#/Vol] 7.0 10*3/uL 4.5-11.0 [facility] Complete Blood Count Auto Di ffon 04-13-2022 Basophils (Bld) [#/Vol] 0.0 10*3/uL Normal 0.0-0.2 [facility] Comment on above: Result Comment: PERF ORMED BY: [place] [address] PATHOLOGIST STEREOPLOTTER OPERATOR TOI BOWER M.D. Performed By: #### P T, PTT, CBC, BMP #### [address] Basophils/100 WBC (Bld) 0.5 % Normal . F [facility] Comment on above: Performed By: #### P T, PTT, CBC, BMP #### [address] Eosinophils (Bld) [#/Vol] 0.2 10*3/uL Normal 0.0-0.45 [facility] Comment on above: Performed By: #### P T, PTT, CBC, BMP #### [address] Eosinophils/100 WBC (Bld) 2.4 % Normal . [facility] Comment on above: Performed By: #### P T, PTT, CBC, BMP #### [address] Erythrocyte distribution width (RBC) [Ratio] 13.3 % Normal 12.0-14.8 [facility] Comment on above: Performed By: #### P T, PTT, CBC, BMP #### [address] Hematocrit (Bld) [Volume fraction] 42.6 % Normal 38.8-50.0 [facility] Comment on above: Performed By: #### P T, PTT, CBC, BMP #### [address] Hemoglobin (Bld) [Mass/Vol] 14.4 g/dL Normal 13.0-17.0 [facility] Comment on above: Performed By: #### P T, PTT, CBC, BMP #### [address] Lymphocytes (Bld) [#/Vol] 1.2 10*3/uL Normal 1.00-4.8 [facility] Comment on above: Performed By: #### P T, PTT, CBC, BMP #### [address] Lymphocytes/100 WBC (Bld) 17.7 % Normal . [facility] Comment on above: Performed By: #### P T, PTT, CBC, BMP #### [address] MCH (RBC) [Entitic mass] 30.6 pg Normal 27.5-35.2 [facility] Comment on above: Performed By: #### P T, PTT, CBC, BMP #### [facility] [address] MCV (RBC) [Entitic vol] 90.7 fL Normal 83.5-[address] [facility] Comment on above: Performed By: #### P T, PTT, CBC, BMP #### [address] Mean Corpuscular HGB Conc 33.8 g/dL Normal 32.5-35.6 [facility] Comment on above: Performed By: #### P T, PTT, CBC, BMP #### [address] Monocytes (Bld) [#/Vol] 0.7 10*3/uL Normal 0.0-0.8 [facility] Comment on above: Performed By: #### P T, PTT, CBC, BMP #### [place] [address] [place] Monocytes/100 WBC (Bld) 9.7 % Normal . F [facility] Comment on above: Performed By: #### P T, PTT, CBC, BMP #### [place] [address] [place] Neutrophils (Bld) [#/Vol] 4.9 10*3/uL Normal 1.8-7.7 [facility] Comment on above: Performed By: #### P T, PTT, CBC, BMP #### [place] [address] [place] Neutrophils/100 WBC (Bld) 69.7 % Normal . [facility] Comment on above: Performed By: #### P T, PTT, CBC, BMP #### [place] [address] [place] Nucleated RBC/100 WBC (Bld) [Ratio] 0.0 % Normal 0-0.5 [facility] Comment on above: Performed By: #### P T, PTT, CBC, BMP #### [address] Platelet mean volume (Bld) [Entitic vol] 9.2 fL Normal 6.6-10.1 [facility] Comment on above: Performed By: #### P T, PTT, CBC, BMP #### [facility] [address] Platelets (Bld) [#/Vol] 265 10*3/uL Normal 150-450 [facility] Comment on above: Performed By: #### P T, PTT, CBC, BMP #### [address] RBC (Bld) [#/Vol] 4.70 10*6/uL Normal 3.90-5.60 [facility] Comment on above: Performed By: #### P T, PTT, CBC, BMP #### [facility] [address] WBC (Bld) [#/Vol] 7.0 10*3/uL Normal 4.5-11.0 [facility] Comment on above: Performed By: #### P T, PTT, CBC, BMP #### [address] Creatinine and Glomerular fi ltration rate.predicted panel (S/P/Bld)Ordered By: Luiz Morrison on 04-13-2022 Creatinine [Mass/Vol] 0.60 mg/dL 0.64-1.27 [facility] ECG 12 lead ECGon 04-13-2022 ECG 12 lead ECG [facility] [place] [address] [place] [address] Electrocardiograph Report Signed Patient: Phu Lopez MR#: [id number] : 1955 Acct:[id number] Age/Sex: 67 / M ADM Date: 04/13/22 Loc: Room: Type: [facility] Attending Dr: Luiz Morrison MD Ordering Provider: [...] Signed By Roxie Gusman MD 1431 Normal [facility] Eosinophils Auto (Bld) [#/Vo l]Ordered By: Luiz Morrison on 04-13-2022 Eosinophils (Bld) [#/Vol] 0.2 10*3/uL 0.0-0.45 [facility] Eosinophils/100 WBC Auto (Bl d)Ordered By: Luiz Morrison on 04-13-2022 Eosinophils/100 WBC (Bld) 2.4 % . [facility] Erythrocyte distribution wid th Auto (RBC) [Ratio]Ordered By: Luiz Morrison on 04-13-2022 Erythrocyte distribution width (RBC) [Ratio] 13.3 % 12.0-14.8 [facility] Estimated glomerular filtrat ion rate (GFR) non- AmericanOrdered By: Luiz Morrison on 04-13-2022 GFR/1.73 sq M.predicted among non-blacks MDRD (S/P/Bld) [Vol rate/Area] > 60 mL/Min [facility] Hematocrit Auto (Bld) [Volum e fraction]Ordered By: Luiz Morrison on 04-13-2022 Hematocrit (Bld) [Volume fraction] 42.6 % 38.8-50.0 [facility] Laboratory - CoagulationOrde red By: Luiz Morrison on 04-13-2022 PT Coag (PPP) [Time] 10.8 s 9.0-12.9 [facility] Laboratory - Hematology and Cell countsOrdered By: Luiz Morrison on 04-13-2022 Nucleated RBC/100 WBC (Bld) [Ratio] 0.0 % 0-0.5 [facility] Lymphocytes Auto (Bld) [#/Vo l]Ordered By: Luiz Morrison on 04-13-2022 Lymphocytes (Bld) [#/Vol] 1.2 10*3/uL 1.00-4.8 [facility] Lymphocytes/100 WBC Auto (Bl d)Ordered By: Luiz Morrison on 04-13-2022 Lymphocytes/100 WBC (Bld) 17.7 % . [facility] MCH Auto (RBC) [Entitic mass ]Ordered By: Luiz Morrison on 04-13-2022 MCH (RBC) [Entitic mass] 30.6 pg 27.5-35.2 [facility] MCHC Auto (RBC) [Mass/Vol]Or dered By: Luiz Morrison on 04-13-2022 MCHC (RBC) [Mass/Vol] 33.8 g/dL 32.5-35.6 [facility] MCV Auto (RBC) [Entitic vol] Ordered By: Luiz Morrison on 04-13-2022 MCV (RBC) [Entitic vol] 90.7 fL 83.5-[address] [facility] Monocytes Auto (Bld) [#/Vol] Ordered By: Luiz Morrison on 04-13-2022 Monocytes (Bld) [#/Vol] 0.7 10*3/uL 0.0-0.8 [facility] Monocytes/100 WBC Auto (Bld) Ordered By: Luiz Morrison on 04-13-2022 Monocytes/100 WBC (Bld) 9.7 % . F [facility] Neutrophils Auto (Bld) [#/Vo l]Ordered By: Luiz Morrison on 04-13-2022 Neutrophils (Bld) [#/Vol] 4.9 10*3/uL 1.8-7.7 [facility] Neutrophils/100 WBC Auto (Bl d)Ordered By: Luiz Morrison on 04-13-2022 Neutrophils/100 WBC (Bld) 69.7 % . [facility] No Panel InformationOrdered By: Luiz Morrison on 04-13-2022 Estimated GFR () > 60 mL/Min [facility] Comment on above: GFR estimated refere nce range: According to KDOQI guidelines, <60 ml/min/1.73m2 is sufficient to diagnose a patient with chronic kidney disease. Pharmacy Creatinine Clearance (Chem N/A [facility] Partial Thromboplastin Timeo n 04-13-2022 aPTT Coag (Bld) [Time] 29.4 s Normal 25.1-36.5 [facility] Comment on above: Result Comment: PERF ORMED BY: [place] [address] PATHOLOGIST STEREOPLOTTER OPERATOR TOI BOWER M.D. Performed By: #### P T, PTT, CBC, BMP #### [facility] [address] [place] [address] Platelet mean volume Auto (B ld) [Entitic vol]Ordered By: Luiz Morrison on 04-13-2022 Platelet mean volume (Bld) [Entitic vol] 9.2 fL 6.6-10.1 [facility] Platelet poor plasma interna tional normalized ratio (INR) by coagulation assay (relatOrdered By: Luiz Morrison on 04-13-2022 INR Coag (PPP) [Relative time] 1.0 {INR} [facility] Comment on above: INR Therapeutic Rang [...] 04-13-2022 Platelets (Bld) [#/Vol] 265 10*3/uL 150-450 [facility] Prothrombin Time INRon 04-13 INR Coag (PPP) [Relative time] 1.0 {INR} Normal [facility] Comment on above: Result Comment: INR [...] P T, PTT, CBC, BMP #### [facility] [address] [place] [id number] [facility] PT Coag (PPP) [Time] 10.8 s Normal 9.0-12.9 [facility] Comment on above: Performed By: #### P T, PTT, CBC, BMP #### [facility] [address] [place] [id number] [facility] RBC Auto (Bld) [#/Vol]Ordere d By: Luiz Morrison on 04-13-2022 RBC (Bld) [#/Vol] 4.70 10*6/uL 3.90-5.60 [facility] Serum or plasma anion gap de terminationOrdered By: Luiz Morrison on 04-13-2022 Anion gap [Moles/Vol] 13.0 mmol/L 6.0-15.0 [facility] Serum or plasma calcium anne urement (mass/volume)Ordered By: Luiz Morrison on 04-13-2022 Calcium [Mass/Vol] 9.4 mg/dL 8.2-10.2 [facility] Serum or plasma chloride neo surement (moles/volume)Ordered By: Luiz Morrison on 04-13-2022 Chloride [Moles/Vol] 100 mmol/L 95-114 [facility] Serum or plasma glucose anne urement (mass/volume)Ordered By: Luiz Morrison on 04-13-2022 Glucose [Mass/Vol] 112 mg/dL 70-100 [facility] Comment on above: ADA recommended refe rence range Random Glucose Reference Range is dependent on time and content of last meal. Glucose of more than 200 mg/dL in a nonstressed, ambulatory subject supports the diagnosis of Diabetes Mellitus. Serum or plasma potassium me asurement (moles/volume)Ordered By: Luiz Morrison on 04-13-2022 Potassium [Moles/Vol] 3.6 mmol/L 3.5-5.1 [facility] Serum or plasma sodium measu rement (moles/volume)Ordered By: Luiz Morrison on 04-13-2022 Sodium [Moles/Vol] 136 mmol/L 136-146 [facility] Serum or plasma total carbon dioxide measurement (moles/volume)Ordered By: Luiz Morrison on 04-13-2022 CO2 [Moles/Vol] 26.6 mmol/L 22.0-30.0 [facility] Serum or plasma urea nitroge n measurement (mass/volume)Ordered By: Luiz Morrison on 04-13-2022 Urea nitrogen [Mass/Vol] 7 mg/dL 9- [facility] CHEMISTRYOrdered By: Gabriel rendon on 04-01-2022 HbA1c (Bld) [Mass fraction] 5.3 % Normal <=5.9% [facility] ChemAutoSS Creatinine (Bld) [Mass/Vol]O rdered By: Luiz Morrison on 01-21-2022 Creatinine [Mass/Vol] 0.8 mg/dL 0.6-1.3 [facility] Comment on above: ER/ESD physician is notified/shown all ISTAT results. Critical values may be confirmed by laboratory testing if deemed necessary by ER attending doctor. No Panel InformationOrdered By: Luiz Morrison on 01-21-2022 POC Estimated GFR > 60 [facility] Comment on above: GFR estimated refere nce range: According to KDOQI guidelines, <60 ml/min/1.73m2 is sufficient to diagnose a patient with chronic kidney disease. POC Estimated GFR Non- Amer > 60 [facility] CHEMISTRYOrdered By: [employer] on 12-22-2021 Free PSA [Mass/Vol] 0.7 ng/mL Invalid Interpretation Code [facility] Free PSA/Total PSA [Mass fraction] 11.0 % Low >=25.0% [facility] Prostate specific Ag [Mass/Vol] 5.9 ng/mL High 0.1 - 3.5 ng/mL [facility] CHEMISTRYOrdered By: [employer] on 12-10-2021 Albumin [Mass/Vol] 3.3 g/dL Normal 3.3 - 5.0 gm/dL [facility] Albumin/Globulin [Mass ratio] 0.9 {ratio} Low 1.1 - 2.2 [facility] ALP [Catalytic activity/Vol] 46 [iU]/d Normal 21 - 98 Int._Unit/L [facility] ALT No additional P-5'-P [Catalytic activity/Vol] 22 [iU]/d Normal 6 - 46 Int._Unit/L [facility] Anion gap [Moles/Vol] 12 mmol/L Normal 6 - 16 mEq/L [facility] AST [Catalytic activity/Vol] 18 [iU]/d Normal 5 - 43 Int._Unit/L [facility] Bilirubin [Mass/Vol] 0.7 mg/dL Normal 0.0 - 1 .1 mg/dL [facility] Calcium [Mass/Vol] 8.9 mg/dL Normal 8.9 - 11. 1 mg/dL [facility] Chloride [Moles/Vol] 102 mmol/L Normal 101 - 1 11 mmol/L [facility] CO2 [Moles/Vol] 27 mmol/L Normal 21 - 31 mmol/L [facility] Creatinine [Mass/Vol] 0.7 mg/dL Normal 0.5 - 1.3 mg/dL [facility] GFR/1.73 sq M.predicted among blacks MDRD (S/P/Bld) [Vol rate/Area] mL/min/1.73 m2 Normal >=59mL/min/ 1.73 m2 [facility] Chem S GFR/1.73 sq M.predicted among non-blacks MDRD (S/P/Bld) [Vol rate/Area] mL/min/1.73 m2 Normal >=59mL/min/ 1.73 m2 [facility] Chem S Globulin (S) [Mass/Vol] 3.8 g/dL [...] 137 mmol/L Normal 135 - 145 mmol/L [facility] Urea nitrogen [Mass/Vol] 12 mg/dL Normal 5 - 21 mg/dL [facility] Urea nitrogen/Creatinine [Mass ratio] 17 mg/mg Normal 10 - 20 [facility] HEMATOLOGYOrdered By: Stephanie jamison on 12-10-2021 Erythrocyte distribution width (RBC) [Ratio] 13.4 % Normal 10.9 - 14.2 % [facility] HemeAutoSS Hematocrit (Bld) [Volume fraction] 39.2 % Normal 37.7 - 49.0 % FT HemeAutoSS Hemoglobin (Bld) [Mass/Vol] 13.5 g/dL Normal 13.5 - 17.5 gm/dL FT HemeAutoSS MCH (RBC) [Entitic mass] 30.8 pg Normal 27.0 - 34.0 pg FT [facility]eAutoSS MCHC (RBC) [Mass/Vol] 34.6 g/dL Normal 31.4 - 36.0 gm/dL FT HemeAutoSS MCV (RBC) [Entitic vol] 89.0 fL Normal 80.0 - 100.0 fL FT HemeAutoSS Platelet mean volume (Bld) [Entitic vol] 8.6 fL Normal 6.4 - 10.8 fL FT HemeAutoSS Platelets (Bld) [#/Vol] 270.0 E9/L Normal 150. 0 - 500.0 E9/L FT HemeAutoSS RBC (Bld) [#/Vol] 4.4 E12/L Normal 4.3 - 5.9 E12/L [facility] HemeAutoSS WBC corrected for nucl RBC Auto (Bld) [#/Vol] 8.4 E9/L Normal 4.0 - 11.0 E9/L [facility] HemeAutoSS CHEMISTRYOrdered By: SYSTEM SYSTEM on 11-19-2021 Creatinine [Mass/Vol] 0.7 mg/dL Normal 0.5 - 1.3 mg/dL [facility] Remisol GFR/1.73 sq M.predicted among blacks MDRD (S/P/Bld) [Vol rate/Area] mL/min/1.73 m2 Normal >=59mL/min/ 1.73 m2 [facility] Chem S GFR/1.73 sq M.predicted among non-blacks MDRD (S/P/Bld) [Vol rate/Area] mL/min/1.73 m2 Normal >=59mL/min/ 1.73 m2 [facility] Chem S Tobacco Screening.on 022 Fall risk assessment a) No falls within the last year [facility] 600 DO Work Phone: Tobacco use status [facility] b) No M [facility] k 600 DO Work Phone: CORONAVIRUS 2019 BY PCRon SARS-CoV-2 (COVID-19) RNA MARY+probe Ql (Unsp spec) Not detected Normal Not Detected [facility] Comment on above: Result Comment: . This [...] this test method. Fact sheet for providers: https://www.fda.gov/media/961093/download Fact sheet for patients: https://www.fda.gov/media/253856/download This test has received FDA Emergency Use Authorization [EUA] and has been verified by [facility] ([facility]). This test is only authorized for the duration of time that circumstances exist to justify the authorization of the emergency use of in vitro diagnostic tests for the detection of SARS-CoV-2 virus and/or diagnosis of COVID-19 infection under section 564(b)(1) of the Act, 21 U.S.C. 360bbb-3(b)(1), unless the authorization is terminated or revoked sooner. [facility] is certified under CLIA-88 as qualified to perform high complexity testing. Testing is performed in the [facility] laboratories located at [address] [place] [address]. Performed By: #### C OV19 #### [address] [place] [address] Covid 19 Resultson SARS-CoV-2 (COVID-19) RNA MARY+probe Ql (Unsp spec) [...] You may also be contacted by the [facility] to see if any of your close [...] or Naproxen (Aleve) can also be used. Wphz-gwc-mjbfwvs cough and cold medicines can be used according to the instructions on the package. Some waah-wpr-oldpmfp medicines also contain acetaminophen. Make sure you [...] water are not available, use alcohol-based hand glaciologist. Avoid touching your eyes, nose, and mouth [...] for 24 matias (more content not included)... [facility] CORONAVIRUS 2019 BY PCRon DATE OF SYMPTOM ONSET [YYYYMMDD]? [id number] [facility] Comment on above: Performed By: #### C OV19 #### [facility] [address] [place] [address] Lab Specimen Source Nasal, Nasopharyngeal [facility] Comment on above: Performed By: #### C OV19 #### [facility] [address] [place] [address] Provider Note - ED v2on Provider Note [...] SIGNS: T PRBP SpO2O2(LPM) %FiO2 Method 10-Mar-2021 13:09:[id number] PHYSICAL EXAM CONSTITUTIONAL: Appearance: well appearing [...] with instruction (more content not included)... Normal [facility] CORONAVIRUS 2019 BY PCRon SARS-CoV-2 (COVID-19) RNA MARY+probe Ql (Unsp spec) Not detected Normal Not Detected [facility] Comment on above: Result Comment: . This [...] patient management decisions. Fact sheet for providers: https://www.fda.gov/media/376805/download Fact sheet for patients: https://www.fda.gov/media/207488/download This test has received FDA Emergency Use Authorization (EUA) and has been verified by [facility] ([facility]). This test is only authorized for the duration of time that circumstances exist to justify the authorization of the emergency use of in vitro diagnostic tests for the detection of SARS-CoV-2 virus and/or diagnosis of COVID-19 infection under section 564(b)(1) of the Act, 21 U.S.C. 360bbb-3(b)(1), unless the authorization is terminated or revoked sooner. [facility] is certified under CLIA-88 as qualified to perform high complexity testing. Testing is performed in the [facility] laboratories located at [id number] [place] [address]. Performed By: #### C OV19 #### [address] [place] [address] Covid 19 Resultson 1 SARS-CoV-2 (COVID-19) RNA [...] You may also be contacted by the [place] [facility] to see if any [...] or Naproxen (Aleve) can also be used. Qckv-lwt-ucbtwvb cough and cold medicines can be used according to the instructions on the package. Some opzz-qqe-tvjkwye medicines also contain acetaminophen. Make sure you [...] water are not available, use alcohol-based hand glaciologist. Avoid touching your eyes, nose, and mouth [...] like ibuprofen (Motrin) (more content not included)... Normal [facility] CORONAVIRUS 2019 BY PCRon DATE OF SYMPTOM ONSET [YYYYMMDD]? [id number] Normal [facility] Comment on above: Performed By: #### C OV19 #### [facility] [address] [place] [address] Lab Specimen Source Nasal, Nasopharyngeal [facility] Comment on above: Performed By: #### C OV19 #### [facility] [address] [place] [address] Provider Note - ED v2on Provider Note [...] and symptoms. Symptoms have been refractory to zhcm-dkp-xyyvpak medications.. Triage Information: Most recent Vital Sign [...] Updated: 12-Sep-2020 09:08 by Emile Michelle (PAC) [facility] Provider Note - ED v2on 06-10 Provider [...] SIGNS: T PRBP SpO2O2(LPM) %FiO2 Method 07-Jul-2020 13:05:[id number]/ [id number] 97 PHYSICAL EXAM CONSTITUTIONAL: Appearance: well [...] exam a (more content not included)... Normal [facility] URINE CULTURE,BACTERIALon URINE CULTURE,BACTERIAL PATIENT: JONO LOPEZ LOCATION: [facility]3]#: [id number] : 57 AGE: SEX: M ORDERED BY: CHRISS MARIE SOURCE: URINE COLLECTED: 07/07/20 14:07 ANTIBIOTICS AT CHAIM.: RECEIVED : 07/07/20 19:19 SITE: Manuel Goncalves L T S URINE CULTURE,BACTERIAL FINAL 07/08/20 12:57 NO SIGNIFICANT GROWTH. [facility] Comment on above: Performed By: #### [facility] #### [facility] [address] [place] [address] OCT MACULA CIRRUS OU (BOTH E YES) [facility] Vital Signs Date Time Vital Sign Value Performing Clinician Facility 06-20-2024 12:58-0500 Diastolic blood pressure 70 mm[Hg] Luiz MORRISON [facility] 06-20-2024 12:58-0500 Mean blood pressure 93 mm[Hg] Luiz MORRISON [facility] 06-20-2024 12:58-0500 Systolic blood pressure 138 mm[Hg] Luiz MORRISON [facility] 06-20-2024 12:51-0500 Blood Pressure Location Luizcaitie MORRISON [facility] 06-20-2024 12:51-0500 Diastolic blood pressure 80 mm[Hg] Luiz MORRISON [facility] 06-20-2024 12:51-0500 Heart rate 78 /min Luiz MORRISON [facility] 06-20-2024 12:51-0500 Respiratory rate 16 /min Luizcaitie MORRISON [facility] 06-20-2024 12:51-0500 Systolic blood pressure 150 mm[Hg] Ulizcaitie MORRISON [facility] 06-04-2024 07:58-0400 Body height 177.8 cm Adam Hookerce DPM FACFAS Work Phone: [facility] 06-04-2024 07:58-0400 Body mass index (BMI) [Ratio] 42.62 kg/m2 Adam Dolce DPM FACFAS Work Phone: [facility] 06-04-2024 07:58-0400 Body weight 134.72 kg Adam Dolce DPM FACFAS Work Phone: [facility] 06-04-2024 07:58-0400 Diastolic blood pressure 71 mm[Hg] Adam Dolce DPM FAC[employer]AS Work Phone: [facility] 06-04-2024 07:58-0400 Heart rate 74 /min Adam Hookerce DPM FACFAS Work Phone: [facility] 06-04-2024 07:58-0400 Systolic blood pressure 132 mm[Hg] Adam Hookerce DPM FACFAS Work Phone: [facility] 05-10-2024 09:24-0400 Body height 177.8 cm Liliana Waller MD Work Phone: [facility] 05-10-2024 09:24-0400 Body mass index (BMI) [Ratio] 42.62 kg/m2 Liliana Waller MD Work Phone: [facility] 05-10-2024 09:24-0400 Body temperature 98.2 [degF] Liliana Waller MD Work Phone: [facility] 05-10-2024 09:24-0400 Body weight 134.72 kg Liliana Waller MD Work Phone: [facility] 05-10-2024 09:24-0400 Diastolic blood pressure 68 mm[Hg] Liliana Waller MD Work Phone: [facility] 05-10-2024 09:24-0400 Heart rate 67 /min Liliana Waller MD Work Phone: [facility] 05-10-2024 09:24-0400 SaO2% (BldA) [Mass fraction] 97 % Liliana Waller MD Work Phone: [facility] 05-10-2024 09:24-0400 Systolic blood pressure 130 mm[Hg] Liliana Waller MD Work Phone: [facility] 05-07-2024 13:42-0400 Body height 177.8 cm [facility] 05-07-2024 13:42-0400 Body mass index (BMI) [Ratio] 41.7 kg/m2 [facility] 05-07-2024 13:42-0400 Body weight 131.99 kg [facility] 05-07-2024 13:42-0400 Diastolic blood pressure 69 mm[Hg] [facility] 05-07-2024 13:42-0400 Heart rate 78 /min [facility] 05-07-2024 13:42-0400 SaO2% (BldA) [Mass fraction] 96 % [facility] 05-07-2024 13:42-0400 Systolic blood pressure 148 mm[Hg] [facility] 03-12-2024 13:59-0400 Body height 177.8 cm [facility] 03-12-2024 13:59-0400 Body mass index (BMI) [Ratio] 40.7 kg/m2 [facility] 03-12-2024 13:59-0400 Body weight 128.82 kg [facility] 03-12-2024 13:59-0400 Diastolic blood pressure 69 mm[Hg] [facility] 03-12-2024 13:59-0400 Heart rate 75 /min [facility] 03-12-2024 13:59-0400 SaO2% (BldA) [Mass fraction] 94 % [facility] 03-12-2024 13:59-0400 Systolic blood pressure 140 mm[Hg] [facility] 09-30-2023 08:46-0500 Body height 177.8 cm Delores Ac MD Work Phone: [facility] 09-30-2023 08:46-0500 Body mass index (BMI) [Ratio] 42.04 kg/m2 Delores Ac MD Work Phone: [facility] 09-30-2023 08:46-0500 Body weight 132.9 kg Delores Ac MD Work Phone: [facility] 09-30-2023 08:46-0500 Diastolic blood pressure 60 mm[Hg] Delores Ac MD Work Phone: [facility] 09-30-2023 08:46-0500 Heart rate 76 /min Delores Ac MD Work Phone: [facility] 09-30-2023 08:46-0500 Systolic blood pressure 138 mm[Hg] Delores Ac MD Work Phone: [facility] 06-15-2023 13:25-0500 Diastolic blood pressure 90 mm[Hg] Luiz MORRISON [facility] 06-15-2023 13:25-0500 Mean blood pressure 110 mm[Hg] Luiz MORRISON [facility] 06-15-2023 13:25-0500 Systolic blood pressure 150 mm[Hg] Luiz MORRISON [facility] 06-15-2023 13:20-0500 Blood Pressure Location Luiz MORRISON [facility] 06-15-2023 13:20-0500 Diastolic blood pressure 94 mm[Hg] Luiz MORRISON [facility] 06-15-2023 13:20-0500 Heart rate 83 /min Luiz MORRISON [facility] 06-15-2023 13:20-0500 Systolic blood pressure 150 mm[Hg] Luiz MORRISON [facility] 02-21-2023 13:30-0400 Body height 172.72 cm Burak Rangel Other [facility] Other 02-21-2023 13:30-0400 Body mass index (BMI) [Ratio] 44.55 kg/m2 Burak Rangel Other [facility] Other 02-21-2023 13:30-0400 Body weight 132.9 kg Burak Rangel Other [facility] Other 02-21-2023 13:30-0400 Diastolic blood pressure 71 mm[Hg] Burak Rangel Other [facility] Other 02-21-2023 13:30-0400 SaO2% (BldA) [Mass fraction] 96 % Burak Rangel Other [facility] Other 02-21-2023 13:30-0400 Systolic blood pressure 167 mm[Hg] Burak Rangel Other [facility] Other 11-03-2022 15:48-0400 Blood Pressure Location Luiz MORRISON [facility] 11-03-2022 15:48-0400 Diastolic blood pressure 76 mm[Hg] Luiz MORRISON [facility] 11-03-2022 15:48-0400 Heart rate 76 /min Luiz MORRISON [facility] 11-03-2022 15:48-0400 Systolic blood pressure 138 mm[Hg] Luiz MORRISON [facility] 09-28-2022 12:04-0500 Diastolic blood pressure 60 mm[Hg] Terri Allsop Work Phone: [facility] [employer] 600 DO Work Phone: 09-28-2022 12:04-0500 Systolic blood pressure 118 mm[Hg] Terri Allsop Work Phone: [facility] 600 DO Work Phone: 09-28-2022 11:58-0500 Diastolic blood pressure 42 mm[Hg] Terri Allsop Work Phone: [facility] 600 DO Work Phone: 09-28-2022 11:58-0500 Systolic blood pressure 118 mm[Hg] Terri Allsop Work Phone: [facility] [employer] 600 DO Work Phone: 09-28-2022 11:57-0500 Body height 177.8 cm Terri Allsop Work Phone: [facility] 600 DO Work Phone: 09-28-2022 11:57-0500 Body mass index (BMI) [Ratio] 40.89 kg/m2 Terri Allsop Work Phone: [facility] 600 DO Work Phone: 09-28-2022 11:57-0500 Body surface area Derived from formula 2.43 m2 Terri Allsop Work Phone: [facility] 600 DO Work Phone: 09-28-2022 11:57-0500 Body weight 129.28 kg Terri Allsop Work Phone: [facility] 600 DO Work Phone: 09-28-2022 11:57-0500 Diastolic blood pressure 44 mm[Hg] Terri Allsop Work Phone: [facility] 600 DO Work Phone: 09-28-2022 11:57-0500 Heart rate 80 /min Terri Allsop Work Phone: [facility] 600 DO Work Phone: 09-28-2022 11:57-0500 Systolic blood pressure 120 mm[Hg] Terri Allsop Work Phone: [facility] 600 DO Work Phone: 09-10-2022 10:02-0500 Body height 177.8 cm Terri Allsop Work Phone: [facility] 600 DO Work Phone: 09-10-2022 10:02-0500 Body mass index (BMI) [Ratio] 41.32 kg/m2 Terri Allsop Work Phone: [facility] 600 DO Work Phone: 09-10-2022 10:02-0500 Body surface area Derived from formula 2.44 m2 Terri Powellsop Work Phone: [facility] 600 DO Work Phone: 09-10-2022 10:02-0500 Body weight 130.64 kg Terri Rmp Work Phone: [facility] 600 DO Work Phone: 09-10-2022 10:02-0500 Diastolic blood pressure 70 mm[Hg] Terri Rmp Work Phone: [facility] 600 DO Work Phone: 09-10-2022 10:02-0500 Heart rate 88 /min Terri Santos Work Phone: [facility] 600 DO Work Phone: 09-10-2022 10:02-0500 Systolic blood pressure 162 mm[Hg] Terri Santos Work Phone: [facility] 600 DO Work Phone: 06-24-2022 13:10-0500 Blood Pressure Location William Oquendocindiandrea [facility] 06-24-2022 13:10-0500 Diastolic blood pressure 87 mm[Hg] William Brush [facility] 06-24-2022 13:10-0500 Heart rate 91 /min William Brush [facility] 06-24-2022 13:10-0500 Respiratory rate 21 /min William Brush [facility] 06-24-2022 13:10-0500 SaO2% (BldA) [Mass fraction] 97 % William Mourany [facility] 06-24-2022 13:10-0500 Systolic blood pressure 152 mm[Hg] William Mourany [facility] 06-24-2022 13:05-0500 Blood Pressure Location William Mourany [facility] 06-24-2022 13:05-0500 Diastolic blood pressure 94 mm[Hg] William Mourany [facility] 06-24-2022 13:05-0500 Heart rate 91 /min William Mourany [facility] 06-24-2022 13:05-0500 Respiratory rate 24 /min William Mourany [facility] 06-24-2022 13:05-0500 SaO2% (BldA) [Mass fraction] 97 % William Mourany [facility] 06-24-2022 13:05-0500 Systolic blood pressure 164 mm[Hg] William Mourany [facility] 06-24-2022 13:00-0500 Heart rate 92 /min William Mourany [facility] 06-24-2022 13:00-0500 Respiratory rate 18 /min William Mourany [facility] 06-24-2022 13:00-0500 SaO2% (BldA) [Mass fraction] 96 % William Mourany [facility] 06-24-2022 13:00-0500 Systolic blood pressure 162 mm[Hg] William Mourany [facility] 06-24-2022 12:40-0500 Body temperature 97.16 [degF] William Mourany [facility] 06-24-2022 12:37-0500 Respiratory rate 20 /min William Mourany [facility] 06-24-2022 12:30-0500 Respiratory rate 20 /min William Mourany [facility] 06-24-2022 12:25-0500 Respiratory rate 20 /min William Mourany [facility] 06-24-2022 11:31-0500 Body temperature 97.16 [degF] William Oquendourany [facility] 05-12-2022 08:06-0400 Blood Pressure Location Luiz MORRISON [facility] 05-12-2022 08:06-0400 Diastolic blood pressure 80 mm[Hg] Luiz MORRISON [facility] 05-12-2022 08:06-0400 Heart rate 80 /min Luiz MORRISON [facility] 05-12-2022 08:06-0400 Respiratory rate 16 /min Luiz MORRISON [facility] 05-12-2022 08:06-0400 Systolic blood pressure 151 mm[Hg] Luiz MORRISON [facility] 04-28-2022 11:54-0400 Body temperature 99.2 [degF] MD Terri Santos Work Phone: [facility] 04-28-2022 11:54-0400 Diastolic blood pressure 91 mm[Hg] MD Terri Santos Work Phone: [facility] 04-28-2022 11:54-0400 Heart rate 92 /min MD Terri Santos Work Phone: [facility] 04-28-2022 11:54-0400 Respiratory rate 18 /min MD Terri Santos Work Phone: [facility] 04-28-2022 11:54-0400 SaO2% (BldA) [Mass fraction] 92 % MD Terri Santos Work Phone: [facility] 04-28-2022 11:54-0400 Systolic blood pressure 173 mm[Hg] MD Terri Santos Work Phone: [facility] 04-28-2022 05:14-0400 Body weight 126.5 kg MD Terri Santos Work Phone: [facility] 04-27-2022 10:48-0400 Inhaled oxygen flow rate 6 L/min MD Terri Santos Work Phone: [facility] 04-27-2022 09:08-0400 Body height 180.34 cm MD Terri Santos Work Phone: [facility] 04-27-2022 09:08-0400 Body mass index (BMI) [Ratio] 37.6 kg/m2 MD Terri Santos Work Phone: [facility] 04-01-2022 10:10-0400 Blood Pressure Location Leonid WHITEHEAD [facility] 04-01-2022 10:10-0400 Diastolic blood pressure 69 mm[Hg] Leonid WHITEHEAD [facility] 04-01-2022 10:10-0400 Heart rate 79 /min Leonid HICKEYL [facility] 04-01-2022 10:10-0400 Respiratory rate 16 /min Leonid WHITEHEAD [facility] [place] 04-01-2022 10:10-0400 Systolic blood pressure 167 mm[Hg] Leonid WHITEHEAD [facility] [place] 02-22-2022 14:45-0400 Body height 172.72 cm Burak Rangel Other [facility] Other 02-22-2022 14:45-0400 Body mass index (BMI) [Ratio] 45.08 kg/m2 Burak Gayban Other [facility] Other 02-22-2022 14:45-0400 Body temperature 97.5 [degF] Burak Rangel Other [facility] Other 02-22-2022 14:45-0400 Body weight 134.49 kg Burak Rangel Other [facility] Other 02-22-2022 14:45-0400 Diastolic blood pressure 75 mm[Hg] Burak Rangel Other [facility] Other 02-22-2022 14:45-0400 SaO2% (BldA) [Mass fraction] 96 % Burak Rangel Other [facility] Other 02-22-2022 14:45-0400 Systolic blood pressure 148 mm[Hg] Burak Rangel Other [facility] Other 12-22-2021 08:15-0400 Blood Pressure Location Luiz MORRISON [facility] 12-22-2021 08:15-0400 Diastolic blood pressure 71 mm[Hg] Luiz MORRISON [facility] 12-22-2021 08:15-0400 Heart rate 74 /min Luiz MORRISON [facility] 12-22-2021 08:15-0400 Systolic blood pressure 139 mm[Hg] Luiz MORRISON [facility] [place] 12-11-2021 08:18-0400 Blood Pressure Location William Trudi [facility] [place] 12-11-2021 08:18-0400 Diastolic blood pressure 77 mm[Hg] William Trudi [facility] [place] 12-11-2021 08:18-0400 Heart rate 77 /min William Oquendocindiandrea [facility] [place] 12-11-2021 08:18-0400 Systolic blood pressure 155 mm[Hg] William Oquendocindiandrea [facility] [place] 11-04-2021 10:36-0400 Blood Pressure Location Luiz MORRISON [facility] 11-04-2021 10:36-0400 Diastolic blood pressure 78 mm[Hg] Luiz MORRISON [facility] 11-04-2021 10:36-0400 Heart rate 85 /min Luiz MORRISON [facility] 11-04-2021 10:36-0400 Respiratory rate 16 /min Luiz MORRISON [facility] 11-04-2021 10:36-0400 Systolic blood pressure 144 mm[Hg] Luiz MORRISON [facility] 08-31-2021 15:23-0500 Diastolic blood pressure 60 mm[Hg] Terri Powellsop Work Phone: [facility] [employer] 600 DO Work Phone: 08-31-2021 15:23-0500 Systolic blood pressure 130 mm[Hg] Terri Powellsop Work Phone: [facility] [employer] 600 DO Work Phone: 08-31-2021 15:08-0500 Body height 177.8 cm Terri Powellsop Work Phone: [facility] [employer] 600 DO Work Phone: 08-31-2021 15:08-0500 Body mass index (BMI) [Ratio] 40.89 kg/m2 Terri Powellsop Work Phone: [facility] [employer] 600 DO Work Phone: 08-31-2021 15:08-0500 Body surface area Derived from formula 2.43 m2 Terri Allsop Work Phone: [facility] [employer] 600 DO Work Phone: 08-31-2021 15:08-0500 Body weight 129.28 kg Terri Powellsop Work Phone: [facility] [employer] 600 DO Work Phone: 08-31-2021 15:08-0500 Diastolic blood pressure 79 mm[Hg] Terri Allsop Work Phone: [facility] [employer] 600 DO Work Phone: 08-31-2021 15:08-0500 Heart rate 75 /min Terri Allsop Work Phone: [facility] [employer] 600 DO Work Phone: 08-31-2021 15:08-0500 Systolic blood pressure 144 mm[Hg] Terri Allsop Work Phone: [facility] [employer] 600 DO Work Phone: 03-10-2021 15:09-0400 Body height 177.8 cm Terri Allsop Other Phone: [facility] 03-10-2021 15:09-0400 Body temperature 98.42 [degF] Terri Allsop Other Phone: [facility] 03-10-2021 15:09-0400 Diastolic blood pressure 70 mm[Hg] Terri Allsop Other Phone: [facility] 03-10-2021 15:09-0400 Heart rate 82 /min Terri Allsop Other Phone: [facility] 03-10-2021 15:09-0400 SaO2% (BldA) [Mass fraction] 95 % Terri Allsop Other Phone: [facility] 03-10-2021 15:09-0400 Systolic blood pressure 132 mm[Hg] Terri Allsop Other Phone: [facility] Encounters Encounter Date Encounter Type Care Provider Facility Start: 06-20-2024 ambulatory Luiz Gamble ty:KELY [facility] Start: 06-20-2024 End: 06-20-2024 Patient encounter procedure Luiz MORRISON [facility] Start: 06-13-2024 End: 06-13-2024 Refill Heaven Lopez MA [facility] Comment on above: Primary hypertension (CMS/HCC); Seasonal allergies Start: 06-04-2024 End: 06-04-2024 Bamboo flowsheet Adam Margarette Dolce DPM FACFAS Work Phone: [facility] Start: 06-04-2024 End: 06-04-2024 Bamboo flowsheet Adam D Dolce DPM FACFAS Work Phone: [facility] Start: 06-04-2024 End: 06-04-2024 Patient encounter procedure Adam Margarette Dolce DPM FACFAS Work Phone: [facility] Comment on above: Onychomycosis (Prima ry Dx); Pain in left toe(s); Pain in right toe(s) Start: 06-04-2024 End: 06-04-2024 ambulatory ADAM JACK Not Available Start: 06-01-2024 End: 06-01-2024 ambulatory TERRI SANTOS Facility:[facility] Start: 06-01-2024 End: 06-01-2024 Patient encounter procedure [...] Start: 05-25-2024 End: 05-25-2024 ambulatory Luiz MORRISON Facility:[facility] Start: 05-25-2024 End: 05-25-2024 Patient encounter procedure Luiz MORRISON [facility] Start: 05-10-2024 End: 05-10-2024 Bamboo flowsheet Liliana Waller MD Work Phone: [facility] Start: 05-10-2024 End: 05-10-2024 Bamboo flowsheet Liliana Waller MD Work Phone: [facility] Start: 05-10-2024 End: 05-10-2024 Office outpatient visit 25 minutes Liliana Waller MD Work Phone: [facility] Comment on above: Acute deep vein thro mbosis (DVT) of distal vein of right lower extremity (CMS/HCC) (Primary Dx); 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; Cardiomyopathy, unspecified type (CMS/HCC); PVD (peripheral vascular disease) (CMS/HCC); Essential hypertension (CMS/HCC); BMI 40.0-44.9, adult (CMS/HCC); Morbid obesity (CMS/HCC) Start: 05-10-2024 End: 05-10-2024 ambulatory LILIANA WALLER Not Available Start: 05-07-2024 End: 05-07-2024 ambulatory [facility] Work Phone: Start: 05-07-2024 End: 05-07-2024 Patient encounter procedure [facility] Work Phone: Start: 04-13-2024 End: 04-13-2024 ambulatory GUNNAR ADLER Not Available Start: 03-26-2024 End: 03-26-2024 ambulatory ADAM D DOLCE Not Available Start: 03-12-2024 End: 03-12-2024 Patient encounter procedure [facility] Work Phone: Start: 01-09-2024 End: 01-09-2024 ambulatory ADAM D DOLCE Not Available Start: 12-01-2023 End: 12-01-2023 ambulatory TERRI D ALLSOP Not Available Start: 11-25-2023 End: 11-25-2023 ambulatory Terri D Allsop Facility:[facility] Start: 11-25-2023 End: 11-25-2023 Patient encounter procedure Terri Pfeiffer Alls[facility] Start: 11-17-2023 End: 11-17-2023 ambulatory TERRI D ALLSOP Not Available Start: 10-31-2023 End: 10-31-2023 ambulatory ADAM Margarette DOLCE Not Available Start: 10-21-2023 End: 10-21-2023 ambulatory Terri D Allsop Facility:[facility] Start: 10-21-2023 End: 10-21-2023 Patient encounter procedure Terri Pfeiffer [facility] Start: 09-30-2023 End: 09-30-2023 Office outpatient visit 25 minutes Delores Ac MD Work Phone: [facility] Comment on above: Essential hypertensi on; Non-ischemic cardiomyopathy (CMS/HCC); Hyperlipidemia, unspecified hyperlipidemia type; Obstructive sleep apnea, adult; Morbid obesity with BMI of 40.0-44.9, adult (CMS/HCC) Start: 09-30-2023 End: 09-30-2023 ambulatory [facility] [address] [facility] Start: 08-25-2023 End: 08-25-2023 ambulatory TERRI Margarette ALLSOP Not Available Start: 08-22-2023 End: 08-22-2023 ambulatory ADAM Pfeiffer DOLCE Not Available Start: 06-15-2023 End: 06-15-2023 Patient encounter procedure Luiz MORRISON [facility] [place] Start: 04-30-2023 End: 04-30-2023 Patient encounter procedure Luiz MORRISON [facility] Start: 02-21-2023 Office outpatient vi sit 15 minutes [facility] Start: 02-21-2023 End: 02-21-2023 ambulatory [facility] Work Phone: Start: 02-21-2023 End: 02-21-2023 Patient encounter procedure MD Terri Allsop Work Phone: [facility] Work Phone: Start: 11-04-2022 Rx Renewal Terri Allso p Work Phone: [facility] 250 DO Work Phone: Start: 11-03-2022 End: 11-03-2022 Patient encounter procedure Luiz Mnauel TAMIKO [facility] Start: 09-29-2022 Chart Update Terri Allso p Work Phone: [facility] 600 DO Work Phone: Start: 09-29-2022 End: 09-29-2022 Patient encounter procedure Delores Ac [facility] Start: 09-28-[address] Delores Ac Facility: Start: 09-28-2022 Office outpatient vi sit 10 minutes Terri Allsop Work Phone: [facility] 600 DO Work Phone: Start: 09-10-2022 Office outpatient vi sit 25 minutes Terri Allsop Work Phone: [facility] 600 DO Work Phone: Start: 09-10-2022 Patient encounter procedure Terri Allsop Work Phone: [facility] 600 DO Work Phone: Start: 09-10-[address] Terri Santos Facility: Start: 07-02-2022 Rx Renewal Terri Allso p Work Phone: [facility] 250 DO Work Phone: Start: 06-24-2022 End: 06-24-2022 Patient encounter procedure William BuenoPrashant Brush [facility] Start: 05-21-2022 End: 05-21-2022 Patient encounter procedure Cici Merida OD Work Phone: Ophthalmology Comment on above: Epiretinal membrane (ERM) of both eyes (Primary Dx); Floppy eyelid syndrome of both eyes; Combined forms of age-related cataract of both eyes; Posterior vitreous detachment of both eyes; Vitreous floaters of both eyes Start: 05-12-2022 End: 05-12-2022 Patient encounter procedure Luiz MORRISON [facility] Start: 05-10-2022 Rx Renewal [facility]ene [facility] Work Phone: Start: 04-30-2022 End: 04-30-2022 Patient encounter procedure Luiz MORRISON [facility] [place] Start: 04-27-2022 End: 04-28-2022 ambulatory Luiz Morrison Facility:[facility] Start: 04-27-2022 End: 04-28-2022 Admission to same day surgery center MD Terri Santos Work Phone: [facility] [place] Start: 04-23-2022 End: 04-23-2022 ambulatory Luiz Morrison Facility:[facility] Start: 04-23-2022 End: 04-23-2022 Patient encounter procedure MD Terri Santos Work Phone: [facility] Start: 04-13-2022 End: 04-13-2022 ambulatory Luiz Morrison Facility:[facility] Start: 04-13-2022 End: 04-13-2022 Patient encounter procedure MD Terri Santos Work Phone: [facility] Start: 04-01-2022 End: 04-01-2022 Lab Drop off Adam Pfeiffer Christie [facility] Start: 04-01-2022 End: 04-01-2022 Patient encounter procedure Leonid WHITEHEAD [facility] [place] Start: 03-26-2022 End: 04-07-2022 Pre-admission assessment Milo Gonzales [facility] Start: 03-17-2022 End: 03-17-2022 Patient encounter procedure Luiz MORRISON [facility] Start: 03-02-2022 End: 03-02-2022 Patient encounter procedure Luiz MORRISON [facility] Start: 02-22-2022 End: 02-22-2022 ambulatory Burak Rangel Other [facility] Other Start: 02-22-2022 Office outpatient vi sit 15 minutes Kamal Chapoli [facility] Start: 02-22-2022 End: 02-22-2022 Patient encounter procedure MD Terri Santos Work Phone: [facility] Start: 01-21-2022 End: 01-21-2022 Patient encounter procedure MD Terri Santos Work Phone: [facility] [place] Start: 12-22-2021 End: 12-22-2021 Lab Drop off Luiz MORRISON [facility] Start: 12-22-2021 End: 12-22-2021 Patient encounter procedure Luiz MORRISON [facility] Start: 12-11-2021 End: 02-20-2022 Pre-admission assessment William Brush [facility] Start: 12-11-2021 End: 12-11-2021 Patient encounter procedure William Brush [facility] Start: 12-10-2021 End: 12-10-2021 Patient encounter procedure Belinda GIL [facility] Start: 12-08-2021 End: 12-08-2021 Patient encounter procedure Luiz MORRISON [facility] Start: 12-01-2021 End: 12-01-2021 Patient encounter procedure Luiz MORRISON [facility] Start: 11-19-2021 End: 11-19-2021 Patient encounter procedure Luiz MORRISON [facility] Start: 11-04-2021 End: 11-04-2021 Patient encounter procedure Luiz MORRISON [facility] Start: 08-31-2021 Office outpatient vi sit 25 minutes Terri Santos Work Phone: [facility] 600 DO Work Phone: Start: 06-10-2021 Rx Renewal Terri greene Work Phone: -[facility] 600 DO Work Phone: Start: 03-10-2021 End: 03-10-2021 Emergency department patient visit Chriss Marie Robley [facility] Start: 04-11-2018 End: 04-11-2018 Emergency department patient visit Danyell Nelson Facility:[facility] Procedures Date Procedure Procedure Detail Performing [...] studies Patr shantel MORRISON Start: 10-08-2011 Colonoscopy Cici mccullough OD Work Phone: Start: 10-08-2011 Colonoscopy Luiz PATRICK Start: 08-10-2011 Colonoscopy Luiz PATRICK Hemorrhoid operation Luiz MORRISON Hemorrhoidectomy Terri Katop Work Phone: Tonsillectomy Luiz MORRISON Total colonoscopy Terri prieto Work Phone: Plan of Treatment Date Care Activity Detail Author Start: 09-03-2033 DTaP/Tdap/Td Vaccine s (2 - Td or Tdap) DTaP/Tdap/Td Vaccines (2 - Td or Tdap) [facility] Start: 09-03-2033 Urine microalbumin profile DTaP,Tdap,Td Vaccine (2 - Td or Tdap) [facility] Start: 06-24-2032 Screening for malign ant neoplasm of colon [facility] Start: 11-23-2024 End: 11-23-2024 Patient encounter procedure 11/23/2024 2:30 PM EDT Office Visit [facility] [address] [place] [address] Josselin Decker MD [address] [place] [address] [facility] Comment on above: oct/erm Start: 11-08-2024 End: 11-08-2024 Patient encounter procedure 11/08/2024 9:00 AM EDT Office Visit [facility] [address] [place] [phone] Liliana Waller MD [address] [place] [address] [facility] Start: 09-25-2024 End: 09-25-2024 Patient encounter procedure 09/25/2024 9:00 AM EST Office Visit [facility] [address] [place] [phone] Delores Ac MD [address] [facility] [place] [address] [facility] Start: 08-20-2024 End: 08-20-2024 Patient encounter procedure 08/20/2024 8:00 AM EST Procedure Visit [facility] [address] [place] [phone] Adam Jack, DPM FACFAS [address] [place] [address] [facility] Start: 06-04-2024 End: 06-04-2024 Patient encounter procedure [facility] Comment on above: Arrived Start: 05-10-2024 End: 05-10-2024 Patient encounter procedure 05/10/2024 9:20 AM EDT Office Visit [facility] [address] [place] [phone] iLliana Waller MD [address] [place] [address] Arrived [facility] Comment on above: Arrived Start: 04-08-2024 Influenza vaccination Influenza Vacc ine (#1) [facility] Start: 10-29-2023 Zoster Vaccines (2 o f 2) Zoster Vaccines (2 of 2) [facility] Start: 09-30-2023 FUV, Provider: Delores Ac, Status: Pen, Time: 9:00 AM FUV, Provider: Delores Ac, Status: Pen, Time: 9:00 AM [facility] 600 DO Work Phone: Start: 08-08-2023 Advance Directive Discussion Advance Directive Discussion [facility] Start: 04-08-2023 COVID-19 Vaccine ( season) COVID-19 Vaccine ( season) [facility] Start: 09-28-2022 NURSEVST, Provider: ISHA TRINIDAD ADMINISTRATIVE SECRETARY 1,[id number], Status: Pen, Time: 11:30 AM NURSEVST, Provider: ISHA TRINIDAD ADMINISTRATIVE SECRETARY 1,[id number], Status: Pen, Time: 11:[address] [facility] Work Phone: Start: 08-31-2022 FUV, Provider: Delores Ac, Status: Pen, Time: 8:40 AM FUV, Provider: Delores Ac, Status: Pen, Time: 8:[address] Work Phone: Start: 08-03-2022 Pneumococcal Vaccine : 65+ (2 of 2 - PCV) Pneumococcal Vaccine: 65+ (2 of 2 - PCV) [facility] Start: 08-03-2022 Pneumococcal Vaccine : 65+ Years (2 - PCV) Pneumococcal Vaccine: 65+ Years (2 - PCV) [facility] Start: 04-28-2022 [facility] Work Phone: Start: 04-27-2022 Hospital admission [facility] Work Phone: Start: 04-08-2022 Influenza vaccination INFLUENZA (#1) [facility] Start: 01-21-2022 MR prostate wo/w con MR prostate wo/ w con [facility] Start: 10-05-2021 COVID-19 VACCINE (4 - Booster for Moderna series) COVID-19 VACCINE (4 - Booster for Moderna series) [facility] Start: 08-08-2021 ADVANCE DIRECTIVE DISCUSSION ADVANCE DIRECTIVE DISCUSSION [facility] Start: 08-08-2021 DEPRESSION ASSESSMENT DEPRESSION ASS ESSMENT [facility] Start: 07-10-2021 SERVANDOVRESULTS, Provider : Delores Ac, Status: Pen, Time: 10:10 AM STACIA, Provider: Delores Ac, Status: Pen, Time: 10:[address] [facility] Work Phone: Start: 01-01-2021 PNEUMOCOCCAL: 65+ (1 - PCV) PNEUMOCOCCAL: 65+ (1 - PCV) [facility] Start: 10-07-2012 Colonoscopy COLONOSCOPY [facility] Start: 10-07-2012 COLORECTAL CANCER SCREENING COLORECTAL CANCER SCREENING [facility] Start: 10-07-2012 Screening for malign ant neoplasm of colon [facility] Start: 01-01-2011 PROSTATE CANCER SCREENING DISCUSSION PROSTATE CANCER SCREENING DISCUSSION [facility] Start: 01-01-2011 Prostate specific antigen measurement Prostate Cancer Screening Discussion [facility] Start: 01-01-2006 SHINGRIX VACCINE (1 of 2) SHINGRIX VACCINE (1 of 2) [facility] Start: 01-01-2001 COLOGUARD (FIT-DNA) COLOGUARD (FIT-D NA) [facility] Start: 01-01-[address] COLONOGRAPHY [facility] Start: 01-01-2001 DIABETES SCREEN DIABETES SCREEN [facility] Start: 01-01-2001 Diabetes Screening Diabetes Screenin g [facility] Start: 01-01-2001 FECAL OCCULT BLOOD FECAL OCCULT BLOO D [facility] Start: 01-01-2001 Screening for malign ant neoplasm of colon [facility] Start: 01-01-2001 SIGMOIDOSCOPY SIGMOIDOSCOPY [facility] Start: 01-01-1991 Lipid panel Lipid Screening [facility] Start: 01-01-1991 LIPID SCREEN LIPID SCREEN [facility] Start: 01-01-1975 Urine microalbumin profile DTAP,TDAP,TD (1 - Tdap) [facility] Start: 01-01-1974 Annual PCP Team Form Block Maker gonzalo Disease Visit Annual PCP Team Chronic Disease Visit [facility] Start: 01-01-1974 BP Controlled (<130/80) BP Controlle d (<130/80) [facility] Start: 01-01-1974 Depression Screening Depression Scre ening [facility] Start: 01-01-1974 Diabetes mellitus screening Diabetes Screening [facility] Start: 01-01-1974 HEPATITIS C SCREENING HEPATITIS C [facility] Start: 01-01-1974 Hepatitis C screening Hepatitis C [facility] Start: 1956 Lipid panel Lipid Panel [facility] Start: 1956 Screening for malign ant neoplasm of colon [facility] Start: 1955 Yearly Adult Physical Yearly Adult P hycal [facility] Patient referral [facility] Work Phone: [facility] Immunizations Immunization Date Immunization Notes Care Provider Fa pari 04-14-2024 influenza virus vacc ine, unspecified formulation Liliana Waller MD Work Phone: [facility] 11-05-2023 zoster vaccine recombinant Luiz MORRISON [facility] 09-03-2023 tetanus toxoid, redu davion diphtheria toxoid, and acellular pertussis vaccine, adsorbed Luiz MORRISON [facility] 09-03-2023 zoster vaccine recombinant Luiz MORRISON [facility] 05-19-2023 influenza virus vacc ine, unspecified formulation Luiz MORRISON [facility] 05-19-2023 Influenza, High-dose Seasonal, Quadrivalent, Preservative Free Liliana Waller MD Work Phone: [facility] 05-27-2022 Fluzone High-Dose Quadrivalent 0.7 ML Intramuscular Suspension Prefilled Syringe Terri Allsop Work Phone: [facility] Work Phone: 05-27-2022 influenza virus vacc ine, unspecified formulation Luiz MORRISON [facility] 08-10-2021 Moderna COVID-19 Vac cine 100 MCG/0.5ML Intramuscular Suspension Terri Allsop Work Phone: [facility] 08-08-2021 SARS-CoV-2 (COVID-19 ) mRNA-1273 vaccine Luiz MORRISON [facility] Comment on above: Result Comment: [facility] 08-03-2021 Fluzone High-Dose Quadrivalent 0.7 ML Intramuscular Suspension Prefilled Syringe Terri Allsop Work Phone: [facility] 600 DO Work Phone: 08-03-2021 influenza virus vacc ine, unspecified formulation Luiz MORRISON [facility] 08-03-2021 pneumococcal polysaccharide vaccine, 23 valent Terri Allsop Work Phone: [facility] 600 DO Work Phone: 2021 Moderna COVID-19 Vac cine 100 MCG/0.5ML Intramuscular Suspension Terri Allsop Work Phone: [facility] 600 DO Work Phone: 12-05-2020 Moderna COVID-19 Vac cine 100 MCG/0.5ML Intramuscular Suspension Terri Allsop Work Phone: [facility] 600 DO Work Phone: 06-26-2020 influenza virus vacc ine, unspecified formulation [employer] [facility] 06-26-2020 influenza, injectabl e, quadrivalent, preservative free Terri Allsop Work Phone: [facility] 600 DO Work Phone: 06-16-2019 influenza virus vacc ine, unspecified formulation [employer] [facility] 06-16-2019 seasonal influenza, intradermal, preservative free Terri Allsop Work Phone: [facility] 600 DO Work Phone: 06-08-2019 influenza virus vacc ine, unspecified formulation [employer] [facility] 06-08-2019 influenza, seasonal, injectable Terri Allsop Work Phone: [facility] 600 DO Work Phone: 06-07-2019 influenza virus vacc ine, unspecified formulation [employer] [facility] 05-08-2018 influenza virus vacc ine, unspecified formulation Terri Allsop Work Phone: [facility] 600 DO Work Phone: 06-08-2016 influenza virus vacc ine, unspecified formulation Terri Allsop Work Phone: [facility] 600 DO Work Phone: 06-08-2016 pneumococcal polysaccharide vaccine, 23 valent Terri Allsop Work Phone: [facility] 600 DO Work Phone: 05-16-2015 influenza virus vacc ine, unspecified formulation Terri Allsop Work Phone: [facility] 600 DO Work Phone: 06-22-2013 influenza virus vacc ine, unspecified formulation Terri Allsop Work Phone: [facility] 600 DO Work Phone: 06-21-2013 pneumococcal polysaccharide vaccine, 23 valent Terri Allsop [facility] Phone: [facility] DO Work Phone: 05-01-2012 influenza virus vacc ine, whole virus Terri Allsop Work Phone: [facility] 600 DO Work Phone: 05-01-2012 influenza, whole Luiz ANDREW ERS [facility] [place] influenza virus vacc ine, unspecified formulation Terri Allsop Work Phone: [facility] DO Work Phone: Comment on above: 2011 2006 Payers Date Payer Category Payer Self-pay [id number] 2021 Private Health Insurance [employer] [id number] 2018 Unknown 2014 Unknown [id number] 1956 Unknown [id number] [id number]. 356 1956 Unknown [id number] 2.16.840.1.876275.3.579.2. 356 1956 Unknown [id number] 2.16.840.1.988414.3.579.2. 1244 1956 Unknown [id number] 2.16.840.1.771840.3.579.2. 1258 1956 Unknown [id number] 2.16.840.1.131612.3.579.2. 1258 1956 Unknown [id number] 2.16.840.1.289556.3.579.2. 1258 1956 Unknown [id number] 2.16.840.1.476330.3.579.2. 1258 1956 Unknown [id number] 2.16.840.1.789389.3.579.2. 1258 1956 Unknown [id number] 2.16.840.1.325282.3.579.2. 1258 1956 Unknown [id number] 2.16.840.1.402905.3.579.2. 1259 1956 Unknown [id number] 2.16.840.1.762477.3.579.2. 1259 1956 Unknown [id number] 2.16.840.1.205944.3.579.2. 1259 1956 Unknown [id number] 2.16.840.1.887115.3.579.2. 1258 1956 Unknown [id number] 2.16.840.1.523457.3.579.2. 727 1956 Unknown [id number] 2.16.840.1.915128.3.579.2. 727 1956 Unknown [id number] 2.16.840.1.892123.3.579.2. 727 1956 Unknown [id number] 2.16.840.1.757151.3.579.2. 727 Unknown [id number] 2.16.840.1.315949.3.579.2. 531 Unknown [id number] 2.16.840.1.757356.3.579.2. 531 Unknown [id number] 2.16.840.1.974427.3.579.2. 531 Unknown [id number] 2.16.840.1.630211.3.579.2. 531 Social History Date Type Detail Facility [facility] Tobacco smoking consumption unknown [facility] Start: 09-30-2023 End: 06-04-2024 Caffeine use Caffeine use -[facility] 600 DO Work Phone: Start: 11-04-2021 End: 06-20-2024 Tobacco smoking status Never smoked tobacco (finding) [facility] Tobacco smoking status Ex-smoker (finding ) [facility] Tobacco smoking status Never [facility] Start: 09-30-2023 End: 06-04-2024 Sex Assigned At Male [facility] Start: 1955 Sex Assigned At Male F [facility] Start: 04-12-2018 End: 01-04-2023 Tobacco use and exposure Smokeless tobacco non-user [facility] Start: 05-21-2022 End: 06-04-2024 Alcohol intake Lifetime non-drinker (finding) [facility] Start: 08-27-2019 History SDOH Alcohol Frequency 1 [facility] Start: 1955 Sex Assigned At Not on file C [facility] Start: 05-11-2022 End: 09-30-2023 Exposure to SARS-CoV-2 (event) Not sure [facility] Start: 01-03-2023 Alcohol Comment caffeine: 2-3 cups per day [facility] Goals Date Patient Goal Desired Activity /State Functional Status Date Assessment Result Facility 06-20-2024 Functional Status N/A [facility] 06-15-2023 Functional Status N/A [facility] 11-03-2022 Functional Status N/A [facility] 06-24-2022 Functional Status N/A [facility] 05-12-2022 Functional Status N/A [facility] 04-28-2022 Functional status Patient at Baseline [facility] Work Phone: 04-01-2022 Functional Status N/A [facility] [place] 03-17-2022 Functional Status N/A [facility] Mental Status Date Assessment Result Facility 04-28-2022 Cognitive function Cognitive Sta tus Patient at Baseline [facility] Work Phone: Clinical Notes 08-15-2020 to 06-20-2024 Telephone Encounter - Yudith Daniel NP - 06/13/2024 10:59 AM ESTTelephone Encounter - Yudith Daniel NP - 06/13/2024 10:59 AM ROSA Crane - 06/04/2024 8:00 AM EDT Note Date & Type Note Facility 06-20-2024 Hospital Discharge instructions Patient Education 06/20/2024 13:16:21 Benign Prostatic Hyperplasia Benign Prostatic Hyperplasia Benign [...] urethra. Follow these instructions at home: Take zvpo-fxm-sblvucc and prescription medicines only as told by [...] provider. Document Revised: 02/10/2022 Document Reviewed: 02/10/2022 [employer] Patient Education 2023 [employer]. Follow Up Care 06/15/2023 14:27:36 With:TAMIKO SAEZ, Luiz Jackson, URL Address: [facility] [address] , [place] [address]- When: Unknown [facility] 06-20-2024 Evaluation + Plan note Diagnostic Tests PendingPSA Total 06/20/24 [facility] 06-13-2024 Telephone encounter Note HR OOO, Rx sent. [facility] 06-13-2024 Miscellaneous Notes HR OOO, Rx sent. documented in this encounter [facility] 06-04-2024 History of Present illness Narrative Images [...] subungual debris. They were painful to palpation 68252 on the right 66570 on the left. VASC: DP /PT were nonpalpable bilateral. Capillary refill time < 3 seconds Digits 1-5 bilateral NEURO: Haslett Osiris 5.07 monofilament was intact B/L. Vibratory [...] 10. ROSA Redmond documented in this encounter [facility] 06-01-2024 Note Date of Procedure 06/01/2024. Assistant Professor Information Drop Press Hand: [email or web address]. Interpretation Right Eye Findings include Epiretinal [...] any questions please contact our office at [phone]. After office hours or on the weekend, please call Dr. Decker on his cell phone at [phone]. documented in this encounter [facility] 06-01-2024 Note HNO ID: [id number] Author: JOSSELIN DECKER MD Service: ? Author [...] agree with all of its relevant components. [facility] 06-01-2024 History of Present illness Narrative ASSESSMENT/PLAN: [...] its relevant components. documented in this encounter [facility] 05-10-2024 History of Present illness Narrative Images [...] to monitor weight documented in this encounter [facility] 09-30-2023 History of Present illness Narrative Subjective [...] has been very compliant Delores Ac MD, [facility] Review of Systems All other systems reviewed [...] Scribe Attestation By signing my name below, Ibeti Scribe attest that this documentation has been [...] discussion and plan. documented in this encounter [facility] Work Phone: 09-30-2023 Instructions Kitty Estes [...] Increase physical activity. documented in this encounter [facility] Work Phone: 06-15-2023 Hospital Discharge instructions [...] urethra. Follow these instructions at home: Take okyk-jki-fvomckx and prescription medicines only as told by [...] provider. Document Revised: 02/10/2022 Document Reviewed: 02/10/2022 [employer] Patient Education 2022 [employer]. 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 Follow these instructions at home: Take oimy-swc-katijhw and prescription medicines only as told by [...] 07/25/2006 Document Revised: 06/19/2019 Document Reviewed: 08/29/2017 [employer] Patient Education 2020 [employer]. Follow Up Care 07/29/2022 09:30:30 With:TAMIKO SAEZ, Luiz Jackson, URL Address: [facility] [address] , [place] [address]- When: Unknown [facility] 11-17-2022 Hospital Discharge instructions Patient Education 06/24/2022 [...] a slower pace than normal. ?Eat soft, quam-fh-rpspam foods. Take avbc-iia-yniacct or prescription medicines only as told by [...] 03/08/2005 Document Revised: 05/17/2018 Document Reviewed: 10/05/2016 [employer] Patient Education 2020 [employer]. Follow Up Care 02/15/2022 10:08:03 With:William Brush Address:Unknown When: Unknown Comments:will call with results [facility]10-14-2022 Instructions* Patient Instructions* Cici Merida, OD [...] delay. Recommended yearly exams. [facility] of Present illness Narrative* Cici Merida, [...] and examined this patient. [facility] Hospital Discharge instructions Patient Education 05/12/2022 [...] Follow these instructions at home: Medicines Take rhzj-klt-xhlnidu and prescription medicines only as told by [...] prevent or treat constipation, such as: ?Take aboy-lue-urvnibc or prescription medicines. ?Eat foods that are [...] Document Reviewed: 04/25/2019 Elsevier Patient Education 2020 [employer]. Follow Up Care 04/30/2022 08:49:28 With:TAMIKO SAEZ, uLiz Jackson, URL Address: [facility] [address], [place] [address]- [phone] When:08/12/2022 [facility] 08-10-2022 Hospital Discharge instructions Patient Education 03/17/2022 [...] including vitamins, herbs, eye drops, creams, and cqjo-gsr-zaospkf medicines. Any problems you or family members [...] provider tells you to take them. Taking igxo-day-sptfguy medicines, vitamins, herbs, and supplements. Eating and [...] 07/25/2006 Document Revised: 11/14/2019 Document Reviewed: 04/25/2019 [employer] Patient Education 2019 [employer]. Follow Up Care 02/12/2022 10:45:59 With:TAMIKO SAEZ, Luiz Jackson, URL Address: [facility] [address] , [place] [address]- [phone] When: Unknown Comments:schedule TURP [facility] [place] 07-26-2022 Hospital Discharge instructions Patient Education 03/02/2022 [...] for your post-operative appointment in 1-2 weeks [phone] or [phone] Follow Up Care 02/12/2022 10:36:38 With:Luiz MORRISON Address: [facility] [address] [place] [address]- Business (1) When: Unknown Comments:Appointment has already been scheduled [facility]07-18-2022 Evaluation note* Encounter Date Diagnosis Assessment Notes Treatment Notes Treatment Clinical Notes Feb, Obstructive sleep apnea (ICD-10 - G47.33) Patient was advised to continue current treatment with CPAP on a regular basis, also to continue working aggressively on losing weight and improving his sleep hygiene, will send a new prescription for supplies to his homeNatanael Ulien company I will see him for follow-up in 1 year Feb, Periodic limb movement disorder (ICD-10 - G47.61) Feb, Morbid obesity (ICD-10 - E66.01) [facility] Other 05-16-2022 Hospital Discharge instructions Patient Education [...] Follow these instructions at home: Medicines Take iojy-tpx-fyqbabf and prescription medicines only as told by [...] or the blood stops without treatment. Take csfs-iwh-fbpqsjn and prescription medicines only as told by your health care provider. Drink enough fluid to keep your urine clear or pale yellow. This information is not intended to replace advice given to you by your health care provider. Make sure you discuss any questions you have with your health care provider. Document Released: 07/25/2006 Document Revised: 12/19/2019 Document Reviewed: 08/27/2017 [employer] Patient Education 2019 [employer]. Follow Up Care 12/01/2021 08:55:58 With:TAMIKO SAEZ, Luiz Jackson, URL Address: [facility] [address] , [place] [address]- When: Unknown Comments:Schedule TURP. [facility] 05-06-2022 Hospital Discharge instructions Patient Education 12/11/2021 [...] ?Hypothyroidism. ?Polycystic ovarian syndrome (PCOS). ?Binge-eating disorder. ?Zeeland syndrome. Taking certain medicines, such as steroids, [...] food choices, such as grocery stores and eFans markets. What are the signs or symptoms? [...] and how much exercise you get. Take garf-ent-brtrple and prescription medicines only as told by [...] 09/01/2005 Document Revised: 03/29/2019 Document Reviewed: 03/29/2019 [employer]karo Patient Education [employer]. [facility] [place] 04-26-2022 Evaluation + Plan noteExtracted from: Title:Urology [...] list: All Problems asthma / SNOMED CT 932406988 / Confirmed Hypocalcemia / SNOMED CT 6278657 / Confirmed Hypokalemia / SNOMED CT 98659603 / Confirmed Obesity / SNOMED CT 1850773355 / Confirmed Chronic heart failure / SNOMED CT 15178875 / Confirmed Hyperlipidemia / SNOMED CT 14114284 / Confirmed Hyperglycemia / SNOMED CT 390445727 / Confirmed Hypertension / SNOMED CT 89450687 / Confirmed Male hypogonadism / SNOMED CT 43112277 / Confirmed Onychomycosis / SNOMED CT 4380068820 / Confirmed Hypothyroid / SNOMED CT 03115313 / Confirmed Depression / SNOMED CT 06803666 / Confirmed Heart disease / SNOMED CT 44793871 / Confirmed Histories Past Medical History: Active asthma (223945765): Onset in 1970 at 15 years. Resolved Depression (300.4): Onset on 12/10/2009 at 54 years. Resolved. Comments: 12/10/2009 EDT 10:06 EDT - Family History: Cardiac arrhythmia Father () Malignant lymphoma Mother () Comments: 12/07/2009 0:16 EDT - Merlyn Sampson RN parathyroid cancer Procedure history: Colonoscopy (644437548) on 10/08/2011 at 56 Years. Colonoscopy (519691674) on 08/10/2011 at 56 Years. Tonsillectomy (201479740). Social History Social & Psychosocial Habits Alcohol [...] Appointments Appointment Date:12/03/2021 08:15:00 AM Scheduled Provider: Location:[facility] Appointment Type:Urology CALL PAT Appointment Date:12/08/2021 08:00:00 AM Scheduled Provider: Location:[facility] Appointment Type:Urology FT Appointment Date:12/11/2021 08:20:00 AM Scheduled Provider:William Brush MD Location:[facility] [place] Appointment Type:[facility] 30 Appointment Date:12/22/2021 08:00:00 AM Scheduled Provider:Luiz MORRISON MD Location:[facility] [place] Appointment Type:URO Office Visit Diagnostic Tests Pending * UroVysion Fish and Urine Cyto ([facility]) 12/01/21 [facility]04-26-2022 Hospital Discharge instructions Patient Education 12/01/2021 [...] MORRISON Address: [facility] [address] [place] [phone]- Business (1) When: Unknown Comments:Office will call to schedule follow up [facility]03-30-2022 Evaluation + Plan note Future Scheduled Tests Radiology* CT Urogram 11/04/21 [facility] [id number] Hospital Discharge instructions Patient Education 11/04/2021 11:30:36 [...] Follow these instructions at home: Medicines Take ghsc-cgv-dxqdatz and prescription medicines only as told by [...] or the blood stops without treatment. Take hpeb-oov-emgyngb and prescription medicines only as told by your health care provider. Drink enough fluid to keep your urine clear or pale yellow. This information is not intended to replace advice given to you by your health care provider. Make sure you discuss any questions you have with your health care provider. Document Released: 07/25/2006 Document Revised: 12/19/2019 Document Reviewed: 08/27/2017 [employer] Patient Education 2020 [employer]. Follow Up Care 10/06/2021 15:23:45 With:TAMIKO SAEZ, Luiz Jackson, URL Address: [facility] [address] , [place] [address]- [phone] When: Unknown [facility] 01-08-2021 History of Past illness Narrative* Problem Noted Date Resolved Date Epiretinal membrane (ERM) of right eye 1 09/04/2021 documented as of this encounter (statuses as of 05/21/2022) [facility] Future Appointments Appointment Date:12/01/2021 08:00:00 AM Scheduled Provider: Location:[facility] Appointment Type:Urology FT Appointment Date:12/11/2021 08:20:00 AM Scheduled Provider:William Brush MD Location:[facility] Future Appointments Appointment Date:12/11/2021 08:20:00 AM Scheduled Provider:William Brush MD Location:[facility] Appointment Type: Appointment Date:12/22/2021 08:00:00 AM Scheduled Provider:Luiz MORRISON MD Location:[facility] Future Appointments Appointment Date:12/11/2021 08:20:00 AM Scheduled Provider:William Brush MD Location:[facility] Appointment Type:[facility] Appointment Date:12/22/2021 08:00:00 AM Scheduled Provider:Luiz MORRISON MD Location:[facility] Appointment Type:URO Office Visit Diagnostic Tests Pending * Testosterone F&T 12[facility]10[facility]21 [facility] Future App[facility]ments Appointment Date:12/22/2021 08:00:00 AM Scheduled Provider:Luiz MORRISON MD Location:[facility] Appointment Type:URO Office Visit Appointment Date:02/19/2022 12:30:00 PM Scheduled Provider: Location:[facility] Appointment Type:Surgery FT [facility] [place] Evaluation + Plan note Future Appointments Appointment Date:02/19/2022 12:30:00 PM Scheduled Provider: Location:[facility] Appointment Type:Surgery FT Diagnostic Tests Pending * PSA Total 12/22/21 [facility] Evaluation + Plan note Future Appointments Appointment Date:02/19/2022 12:30:00 PM Scheduled Provider: Location:[facility] Future Appointments Appointment Date:03/02/2022 09:45:00 AM Scheduled Provider: Location:[facility] Appointment Type:Urology FT Appointment Date:03/17/2022 02:00:00 PM Scheduled Provider:Luiz MORRISON MD [facility] Type:URO Office Visit Appointment Date:06/25/2022 12:30:00 PM Scheduled Provider: Location:[facility] Future Appointments Appointment Date:03/17/2022 02:00:00 PM Scheduled Provider:Luiz MORRISON MD Location:[facility] Appointment Type:URO Office Visit Appointment Date:06/25/2022 12:30:00 PM Scheduled Provider: Location:[facility] Appointment Type:Surgery FT Diagnostic Tests Pending * Prostate Histology ([facility]) 03/02/22 [facility] Future Appointments Appointment Date:06/25/2022 12:30:00 PM Scheduled Provider: Location:[facility] Appointment Type:Surgery FT [facility] Evaluation + Plan note Future Appointments Appointment Date:04/06/2022 02:30:00 PM Scheduled Provider:Milo Gonzales MD Location:[facility] Appointment Type:Pain Management - New (FT) Appointment Date:06/25/2022 12:30:00 PM Scheduled Provider: Location:[facility] Appointment Type:Surgery FT [facility] [place] Evaluation + Plan note Future Appointments Appointment Date:05/12/2022 08:00:00 AM Scheduled Provider:Luiz MORRISON MD Location:[facility] Appointment Type:URO Office Visit Appointment Date:06/25/2022 12:30:00 PM Scheduled Provider: Location:[facility] Appointment Type:Surgery FT [facility] Evaluation + Plan note Future Appointments Appointment Date:06/24/2022 12:30:00 PM Scheduled Provider: Location:[facility] Appointment Type:Surgery FT Appointment Date:08/11/2022 10:30:00 AM Scheduled Provider:Luiz MORRISON MD Location:[facility] Appointment Type:URO Office Visit [facility] Evaluation + Plan note Future Appointments Appointment Date:08/11/2022 10:30:00 AM Scheduled Provider:Luiz MORRISON MD Location:[facility] Appointment Type:[facility] Future Appointments Appointment Date:11/03/2022 03:00:00 PM Scheduled Provider:Luiz MORRISON MD Location:[facility] Appointment Type:URO [facility] Future Appointments Appointment Date:06/15/2023 01:15:00 PM Scheduled Provider:Luiz MORRISON MD [facility] Type:[facility]O Office Visit Diagnostic Tests Pending * PSA Total 11/03/22 [facility] Evaluation + Plan note Future Appointments Appointment Date:06/15/2023 01:15:00 PM Scheduled Provider:Luiz MORRISON MD [facility] Type:URO Office Visit Diagnostic Tests Pending * PSA Total [facility]/30/23 [facility] Future Appointments Appointment Date:06/20/2024 01:00:00 PM Scheduled Provider:Luiz MORRISON MD [facility] Type:URO Office Visit Diagnostic Tests Pending * PSA Total 06/15/23 [facility] Evaluation + Plan note Future Appointments Appointment Date:06/20/2024 01:00:00 PM Scheduled Provider:Luiz MORRISON MD Location:[facility] Appointment Type[facility]O [facility] assessment information available [facility] Work Phone: Evaluation note* Diagnosis Epiretinal membrane (ERM) of both eyes- Primary Floppy eyelid syndrome of both eyes Combined forms of age-related cataract of both eyes Other and combined forms of senile cataract Posterior vitreous detachment of both eyes Vitreous degeneration Vitreous floaters of both eyes [facility] Diagnosis Essential hypertension Unspecified essential hypertension Non-ischemic cardiomyopathy (CMS/HCC) Other primary cardiomyopathies Hyperlipidemia, unspecified hyperlipidemia type Obstructive sleep apnea, adult Morbid obesity with BMI of 40.0-44.9, adult (CMS/HCC) documented in this encounter [facility] Work Phone: Evaluation note* Diagnosis Onset Date Resolution Status Hypertension acute Sleep apnea with use of cont inuous positive airway pressure (CPAP) acute Hypertension acute Sleep apnea with use of cont inuous positive airway pressure (CPAP) acute [facility] Work Phone: Evaluation note* Diagnosis Acute deep vein thrombosis (DVT) of distal vein of right lower extremity (CMS/HCC)- 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 Cardiomyopathy, unspecified type (CMS/HCC) PVD (peripheral vascular disease) (CMS/HCC) Unspecified peripheral vascular disease Essential hypertension (CMS/HCC) Unspecified essential hypertension BMI 40.0-44.9, adult (CMS/HCC) Morbid obesity (CMS/HCC) Morbid obesity documented in this encounter [facility] HealthcareEvaluation note* Diagnosis Epiretinal membrane (ERM) of both eyes- Primary Floppy eyelid syndrome of both eyes Combined form of age-related cataract, both eyes Benign prostatic hyperplasia without lower urinary tract symptoms Anxiety disorder, unspecified type Essential hypertension Unspecified essential hypertension Mixed hyperlipidemia Obstructive sleep apnea syndrome Obstructive sleep apnea (adult) (pediatric) [facility] Diagnosis Onychomycosis- Primary Dermatophytosis of nail Pain in left toe(s) Pain in right toe(s) documented in this encounter [facility] HealthcareEvaluation note* Diagnosis Primary hypertension (CMS/HCC) Unspecified essential hypertension Seasonal allergies Allergic rhinitis, cause unspecified documented in this encounter [facility] HealthcareHistory general Narrative - Reported* Type Description Date Medical History CARDIOMYOPATHY Medical History HYPERTENSION Medical History HYPOKALEMIA Medical History HYPERLIPIDEMIA Medical History FATTY LIVER Medical History ASTHMA Medical History SLEEP APNEA Medical History DEPRESSION Medical History RESTLESS LEG SYNDROME Surgical History HEMMRHOIDECTOMY 1990 Surgical History ANGIOGRAM [facility] Other Hospital course Narrative No data available for this section [facility] Hospital Discharge instructions No data available for this section [facility] No data available for this section [facility]narrative)* Consultation (Routine) - Authorized Specialty Diagnoses / Procedures Referred By Supa t Referred To Contact Cardiology Diagnoses Essential hypertension Non-ischemic cardiomyopathy (CMS/HCC) Procedures Follow Up In Cardiology Delores Ac MD [address] [address], [address] [address] Delores Ac MD [address] [place] [address] Referral ID Status Reason Start Date Expiration Date V isits Requested Visits Authorized [id number] Authorized 09/30/2023 09/29/2024 1 1 [facility] Work Phone: Summary Purpose Family History [...] on CPAP machine * Delores Ac MD, [facility] PHU LOPEZ is being seen for an annual follow-up of.* PHU WENDY is being seen for an annual follow-up of. * Patient is in the office for follow-up for the problems noted below. 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 He reports no symptoms of dyspnea [...] been very compliant * Delores Ac MD, [facility] * PHU LOPEZ is being [...] section and content) DATE CREATED AUTHOR 05/19/2018 [facility] DATE CREATED AUTHOR AUTHOR'S ORGANIZ ATION 03/14/2021 [facility] DATE CREATED AUTHOR AUTHOR'S ORGANIZ ATION 09/29/2022 [facility] DATE CREATED AUTHOR AUTHOR'S ORGANIZ ATION 09/29/2022 [facility] DATE CREATED AUTHOR AUTHOR'S ORGANIZ ATION 02/24/2023 [facility] DATE CREATED AUTHOR AUTHOR'S ORGANIZ ATION 04/17/2024 [facility] DATE CREATED AUTHOR AUTHOR'S ORGANIZ ATION 06/01/2024 [facility] DATE CREATED AUTHOR AUTHOR'S ORGANIZ ATION 06/03/2024 [facility] DATE CREATED AUTHOR AUTHOR'S ORGANIZ ATION 06/04/2024 [facility] dical [facility] DATE CREATED AUTHOR AUTHOR'S ORGANIZ ATION 06/18/2024 [facility] <item> Privacy Markings (unrecogniz ed section and content) Section Author: Anat Maxwell PROHIBITION ON REDISCLOSURE OF CONFIDENTIAL INFORMATION This notice accompanies a disclosure of information concerning a client made to you with the consent of such client. Care Teams (unrecognized sec tion and content) Personnel Name: Liliana Waller MD Address: Address: [address] [place] [address] [place], [place] [address] Team Status: Inactive Member Role Status Dates Terri Santos MD Primary Care Provider Active Luiz Morrison MD Attending Provider Active Team Status: Active Member Role Status Dates Terri Santos MD Primary Care Provider Active Team Status: Inactive Member Role Status Dates Terri Santos MD Primary Care Provider Active Kamjuan Chaban , MD Attending Provider Active Ordnance Mechanic Relationship Specialty Start Date End Date Terri Santos DO [address] [place] [address] PCP - General Family Medicine 04/11/18 Ordnance Mechanic Relationship Specialty Start Date End Date Terri Santos DO [address] [id number] PCP - General 09/11/20 Team Status: Inactive [...] May 07, 2024 End: May 07, 2024 Ordnance Mechanic Relationship Specialty Start Date End Date Terri Santos DO PCP - Medical [place] [facility] 08/08/09 08/07/99 Liliana Waller MD [address] [place] [address] PCP - General Family Medicine 03/26/24 Ordnance Mechanic Relationship Specialty Start Date End Date Terri Santos DO PCP - Medical [place] [employer] 08/08/09 08/07/99 Liliana Waller MD [address] [place] [address] PCP - General [facility] Medicine 03/26/24 Ordnance Mechanic Relationship Specialty Start Date End Date Terri Santos DO [address] [place] [address] PCP - General Family Medicine 04/11/18 ZhuArnaud pandyaJOSE otero [address] [place] [address] Referring Optometry 05/27/23 Ordnance Mechanic Relationship Specialty Start Date End Date Terri Santos DO PCP - Medical [place] [employer] 08/08/09 08/07/99 Liliana Waller MD [address] [place] [address] PCP - General Family Medicine 03/26/24 Ordnance Mechanic Relationship Specialty Start Date End Date Terri Santos DO PCP - Medical [place] [employer] 08/08/09 08/07/99 Liliana Waller MD [address] [place] [address] PCP - General Family Medicine 03/26/24 Goals [...] or prosecute any alcohol or drug abuse patient.[facility] the event this information is protected by the Federal Confidentiality of Alcohol and Drug Abuse Patient Records regulations: The Federal rules restrict any use of the information to criminally investigate or prosecute any alcohol or drug abuse patient.[facility] FOR RECORDS PERTAINING TO PATIENTS WHO [...] BE BASED ON THE PRIMARY CLINICAL RECORDS. [facility] [employer] [facility]. provides no warranty or guarantee of the accuracy or completeness of information in this document.
--- NOTE | 2024-06-22 07:39 | V.VEINS.HP ---
Varicose Veins Patient in today for follow up ultrasound post EVLT of right SSV. Rahul Smith MD personally performed the services described in this documentation, as scribed by Madai Gage RVT, RDMS in my presence and it is both accurate and complete. Madai Smith RVT, RDMS, am scribing for, and in the presence of, Dr. Rahul Pedro and in the presence of the patient. thigh: bilateral, knee: bilateral, calf: bilateral, ankle: bilateral and delaney: bilateral aching and dull 3 2 years Worsened in recent months: Yes walking elevating extremities and compression stockings Reports heaviness, restless legs, limb pain, edema and leg edema History of lower extremity trauma: No Superficial thrombophlebitis: No Family history of varicose veins: no Has patient had previous lower extremity venous surgery: No Patient has previously received the following treatment(s) for lower extremity varicose veins: Reports none Does patient have a history of : not applicable Does patient intend to have future pregnancies: not applicable Has patient had lower extremity venous scan with relux testing: Yes Support hose used: Yes Problems walking or doing physical activity: Yes How does it affect you: unable to walk long distances Do you walk much: No Do you stand much: Yes Medication compliance: good Review of Systems ROS Narrative Rahul Smith MD personally performed the services described in this documentation, as scribed by Madai Gage RVT, RDMS in my presence and it is both accurate and complete. Madai Smith RVT, RDMS, am scribing for, and in the presence of, Dr. Rahul Pedro and in the presence of the patient. Status of ROS 10 or more systems reviewed and unremarkable except as noted in history and below Cardiovascular Reports: edema and swelling of feet/ankles Musculoskeletal Reports: extremity pain, extremity swelling, joint pain, joint swelling and muscle cramps Integumentary/Breast Reports: rash, itching and redness PFSH PFS Medical History (Updated 06/01/24 @ 07:33 by Jane Farris) Phlebitis and thrombophlebitis of superficial vessels of left lower extremity ?I80.02 - Phlebitis and thrombophlebitis of superficial vessels of left lower extremity (ICD-10) Phlebitis and thrombophlebitis of superficial vessels of right lower extremity ?I80.01 - Phlebitis and thrombophlebitis of superficial vessels of right lower extremity (ICD-10) Hemorrhoids, internal ?K64.8 - Other hemorrhoids (ICD-10) Pain due to varicose veins of both lower extremities ?I83.813 - Varicose veins of bilateral lower extremities with pain (ICD-10) Tinea pedis ?B35.3 - Tinea pedis (ICD-10) Sleep apnea ?G47.30 - Sleep apnea, unspecified (ICD-10) Restless leg ?G25.81 - Restless legs syndrome (ICD-10) Onychomycosis ?B35.1 - Tinea unguium (ICD-10) Obesity ?E66.9 - Obesity, unspecified (ICD-10) Left ventricular failure ?I50.1 - Left ventricular failure, unspecified (ICD-10) Hypokalemia ?E87.6 - Hypokalemia (ICD-10) Hyperglycemia ?R73.9 - Hyperglycemia, unspecified (ICD-10) Hyperlipemia ?E78.5 - Hyperlipidemia, unspecified (ICD-10) Accelerated essential hypertension ?I10 - Essential (primary) hypertension (ICD-10) Elevated PSA ?R97.20 - Elevated prostate specific antigen [PSA] (ICD-10) Cardiomyopathy ?I42.9 - Cardiomyopathy, unspecified (ICD-10) Anxiety ?F41.9 - Anxiety disorder, unspecified (ICD-10) Surgical History (Updated 06/15/24 @ 12:48 by Gerald Lopez) Status post laser ablation of incompetent vein ?Z98.890 - Other specified postprocedural states (ICD-10) Status post laser ablation of incompetent vein ?Z98.890 - Other specified postprocedural states (ICD-10) Status post laser ablation of incompetent vein ?Z98.890 - Other specified postprocedural states (ICD-10) S/P TURP ?Z90.79 - Acquired absence of other genital organ(s) (ICD-10) Family History (Updated 04/06/24 @ 10:04 by Destini Carlin RN) Other Family history of CHF (congestive heart failure) Family history of cancer Family history of hypertension Family history of myocardial infarction Social History (Updated 04/06/24 @ 10:05 by Destini Carlin RN) Within the past year, how often did you have a drink containing alcohol: never Score interpretation: A score less than 4 is consistent with normal alcohol consumption. Smoking status: Never smoker Non-prescribed substance use: denies use Meds Home Medications and Allergies Home Medications ?Medication ?Instructions ?Recorded ?Confirmed ?Type amiloride 5 mg tablet 5 mg PO DAILY 04/06/24 04/06/24 History amlodipine 10 mg tablet 10 mg PO DAILY 04/06/24 04/06/24 History aspirin 325 mg tablet 325 mg PO DAILY 04/06/24 04/06/24 History carvedilol 25 mg tablet (Coreg) 25 mg PO BID 04/06/24 04/06/24 History doxazosin 4 mg tablet (Cardura) 4 mg PO QPM 04/06/24 04/06/24 History finasteride 5 mg tablet 5 mg PO DAILY 04/06/24 04/06/24 History hydralazine .Route DAILY 04/06/24 History hydrochlorothiazide 25 mg tablet 25 mg PO DAILY 04/06/24 04/06/24 History losartan 100 mg tablet 100 mg PO DAILY 04/06/24 04/06/24 History lovastatin 30 mg PO QAM 04/06/24 04/06/24 History montelukast 10 mg tablet 10 mg PO DAILY 04/06/24 04/06/24 History niacin 500 mg capsule,extended 500 mg PO DAILY 04/06/24 04/06/24 History release paroxetine HCl 20 mg tablet 20 mg PO DAILY 04/06/24 04/06/24 History potassium chloride 10 mEq 10 meq PO DAILY 04/06/24 04/06/24 History tablet,extended release (Klor-Con) apixaban 5 mg tablet (Eliquis) 5 mg PO BID 05/04/24 05/04/24 History Allergies Allergy/AdvReac Type Severity Reaction Status Date / Time clarithromycin Allergy Unknown Unknown Verified 04/06/24 09:39 Exam Narrative Exam Narrative: Rahul Smith MD personally performed the services described in this documentation, as scribed by Madai Gage RVT, RDMS in my presence and it is both accurate and complete. Madai Smith RVT, RDMS, am scribing for, and in the presence of, Dr. Rahul Pedro and in the presence of the patient. Constitutional Vital Signs, click to edit/add: Last Vital Signs Pulse 70 04/20/24 09:25 Resp 18 04/20/24 09:25 BP 120/64 04/20/24 09:25 Pulse Ox 96 04/20/24 09:25 Documenting provider has reviewed patient's vital signs: yes Common normals: oriented x3 Nutritional appearance: overweight Lymph Lymphatic: no lymphedema noted Cardio Peripheral pulses: posterior tibial pulses present and dorsalis pedis pulses present Extremity General: calf tenderness, edema and other findings Right lower extremity: lower leg Right lower leg: inspection and palpation Left lower extremity: lower leg Left lower leg: inspection and palpation Neuro Common normals: oriented x3 Results Imaging Venous US: Radiologist's impression: The ultrasound demonstrates Heat induced thrombus visualized arising at proximal SSV and extending through distal SSV. Assessment and Plan Assessment and Plan (1) Phlebitis and thrombophlebitis of superficial vessels of right lower extremity: Plan Patient in today for follow up ultrasound of lower extremity following treatment of EVLT of right SSV completed on 06/15/24. IRahul MD personally performed the services described in this documentation, as scribed by Madai Gage RVT, RDMS in my presence and it is both accurate and complete. Madai Smith RVT, RDMS, am scribing for, and in the presence of, Dr. Rahul Pedro and in the presence of the patient.
--- NOTE | 2024-06-22 07:52 | P.DS_ITS ---
Discharge Plan Discharge Disposition: Home, Self-Care Outpatient Diagnostics: VC Endovenous Ablation 1VeinLT (Routine) Timeframe: 2 Weeks Facility: [facility] - Location: Vein Center Ordered By: Rahul Pedro Follow Up Appointments: 07/13/24 Print Language: Turkmen
== END 2024-06-22 08:08 | disposition home or self-care (01) ==
PROVIDERS: PCP Radiology Diagnostic Radiology; Visit Provider Radiology Diagnostic Radiology
DX: I80.01 Phlebitis and thrombophlebitis of superficial vessels of right lower extremity (principal)
CPT/HCPCS: 93971; G0463

== ENCOUNTER 2024-07-13 11:32 | Outpatient (OUT) | payer OTHER, SELFPAY ==
--- NOTE | 2024-07-12 15:37 | VEINCLINIC_ITS ---
Vital Signs 07/13/24 11:39 BP 145/62 H BP Location Left Brachial BP Position Sitting BP Cuff Size Large Adult BP Source Automatic Cuff Respiration 20 Pulse 81 Pulse Source Monitor Pulse Oximetry (%) 96 Oxygen Delivery Method Room Air Comment The patient's blood pressure is elevated. Varicose Veins Patient in today for EVLT of left AASV Rahul Smith MD personally performed the services described in this documentation, as scribed by Gerald Lopez RN in my presence and it is both accurate and complete. Gerald Smith RN, am scribing for, and in the presence of, Dr. Rahul Pedro and in the presence of the patient. thigh: bilateral, knee: bilateral, calf: bilateral, ankle: bilateral and delaney: bilateral aching and dull 3 2 years Worsened in recent months: Yes walking elevating extremities and compression stockings Reports heaviness, restless legs, limb pain, edema and leg edema History of lower extremity trauma: No Superficial thrombophlebitis: No Family history of varicose veins: no Has patient had previous lower extremity venous surgery: No Patient has previously received the following treatment(s) for lower extremity varicose veins: Reports none Does patient have a history of : not applicable Does patient intend to have future pregnancies: not applicable Has patient had lower extremity venous scan with relux testing: Yes Support hose used: Yes Problems walking or doing physical activity: Yes How does it affect you: unable to walk long distances Do you walk much: No Do you stand much: Yes Medication compliance: good Review of Systems ROS Narrative Rahul Smith MD personally performed the services described in this documentation, as scribed by Gerald Lopez RN in my presence and it is both accurate and complete. Gerald Smith RN, am scribing for, and in the presence of, Dr. Rahul Pedro and in the presence of the patient. Status of ROS 10 or more systems reviewed and unremark able except as noted in history and below Cardiovascular Reports: edema and swelling of feet/ankles Musculoskeletal Reports: extremity pain, extremity swelling, joint pain, joint swelling and muscle cramps Integumentary/Breast Reports: rash, itching and redness [facility] Medical History (Updated 06/01/24 @ 07:33 by Jane Farris) Phlebitis and thrombophlebitis of superficial vessels of left lower extremity ?I80.02 - Phlebitis and thrombophlebitis of superficial vessels of left lower extremity (ICD-10) Phlebitis and thrombophlebitis of superficial vessels of right lower extremity ?I80.01 - Phlebitis and thrombophlebitis of superficial vessels of right lower extremity (ICD-10) Hemorrhoids, internal ?K64.8 - Other hemorrhoids (ICD-10) Pain due to varicose veins of both lower extremities ?I83.813 - Varicose veins of bilateral lower extremities with pain (ICD-10) Tinea pedis ?B35.3 - Tinea pedis (ICD-10) Sleep apnea ?G47.30 - Sleep apnea, unspecified (ICD-10) Restless leg ?G25.81 - Restless legs syndrome (ICD-10) Onychomycosis ?B35.1 - Tinea unguium (ICD-10) Obesity ?E66.9 - Obesity, unspecified (ICD-10) Left ventricular failure ?I50.1 - Left ventricular failure, unspecified (ICD-10) Hypokalemia ?E87.6 - Hypokalemia (ICD-10) Hyperglycemia ?R73.9 - Hyperglycemia, unspecified (ICD-10) Hyperlipemia ?E78.5 - Hyperlipidemia, unspecified (ICD-10) Accelerated essential hypertension ?I10 - Essential (primary) hypertension (ICD-10) Elevated PSA ?R97.20 - Elevated prostate specific antigen [PSA] (ICD-10) Cardiomyopathy ?I42.9 - Cardiomyopathy, unspecified (ICD-10) Anxiety ?F41.9 - Anxiety disorder, unspecified (ICD-10) Surgical History (Updated 07/13/24 @ 11:47 by Gerald Lopez) Status post laser ablation of incompetent vein ?Z98.890 - Other specified postprocedural states (ICD-10) Status post laser ablation of incompetent vein ?Z98.890 - Other specified postprocedural states (ICD-10) Status post laser ablation of incompetent vein ?Z98.890 - Other specified postprocedural states (ICD-10) Status post laser ablation of incompetent vein ?Z98.890 - Other specified postprocedural states (ICD-10) S/P TURP ?Z90.79 - Acquired absence of other genital organ(s) (ICD-10) Family History (Updated 04/06/24 @ 10:04 by Destini Carlin RN) Other Family history of CHF (congestive heart failure) Family history of cancer Family history of hypertension Family history of myocardial infarction Social History (Updated 04/06/24 @ 10:05 by Destini Carlin RN) Within the past year, how often did you have a drink containing alcohol: never Score interpretation: A score less than 4 is consistent with normal alcohol consumption. Smoking status: Never smoker Non-prescribed substance use: denies use Meds Home Medications and Allergies Home Medications ?Medication ?Instructions ?Recorded ?Confirmed ?Type amiloride 5 mg tablet 5 mg PO DAILY 04/06/24 04/06/24 History amlodipine 10 mg tablet 10 mg PO DAILY 04/06/24 04/06/24 History aspirin 325 mg tablet 325 mg PO DAILY 04/06/24 04/06/24 History carvedilol 25 mg tablet (Coreg) 25 mg PO BID 04/06/24 04/06/24 History doxazosin 4 mg tablet (Cardura) 4 mg PO QPM 04/06/24 04/06/24 History finasteride 5 mg tablet 5 mg PO DAILY 04/06/24 04/06/24 History hydralazine .Route DAILY 04/06/24 History hydrochlorothiazide 25 mg tablet 25 mg PO DAILY 04/06/24 04/06/24 History losartan 100 mg tablet 100 mg PO DAILY 04/06/24 04/06/24 History lovastatin 30 mg PO QAM 04/06/24 04/06/24 History montelukast 10 mg tablet 10 mg PO DAILY 04/06/24 04/06/24 History niacin 500 mg capsule,extended 500 mg PO DAILY 04/06/24 04/06/24 History release paroxetine HCl 20 mg tablet 20 mg PO DAILY 04/06/24 04/06/24 History potassium chloride 10 mEq 10 meq PO DAILY 04/06/24 04/06/24 History tablet,extended release (Klor-Con) apixaban 5 mg tablet (Eliquis) 5 mg PO BID 05/04/24 05/04/24 History Allergies Allergy/AdvReac Type Severity Reaction Status Date / Time clarithromycin Allergy Unknown Unknown Verified 04/06/24 09:39 Exam Narrative Exam Narrative: Rahul Smith MD personally performed the services described in this documentation, as scribed by Gerald Lopez RN in my presence and it is both accurate and complete. I, Gerald Lopez RN, am scribing for, and in the presence of, Dr. Rahul Pedro and in the presence of the patient. Constitutional Vital Signs, click to edit/add: Last Vital Signs Pulse 70 04/20/24 09:25 Resp 18 04/20/24 09:25 BP 120/64 04/20/24 09:25 Pulse Ox 96 04/20/24 09:25 Documenting provider has reviewed patient's vital signs: yes Common normals: oriented x3 Nutritional appearance: overweight Lymph Lymphatic: no lymphedema noted Cardio Peripheral pulses: posterior tibial pulses present and dorsalis pedis pulses present Extremity General: calf tenderness, edema and other findings Right lower extremity: lower leg Right lower leg: inspection and palpation Left lower extremity: lower leg Left lower leg: inspection and palpation Neuro Common normals: oriented x3 Assessment and Plan Assessment and Plan (1) Pain due to varicose veins of both lower extremities: Plan f/u evaluation with physician along with left leg limited u/s Rahul Smith MD personally performed the services described in this documentation, as scribed by Gerald Lopez RN in my presence and it is both accurate and complete. I, Gerald Lopez RN, am scribing for, and in the presence of, Dr. Rahul Pedro and in the presence of the patient. Procedures Procedure Instructions Procedures Plan of care: Risks and benefits of the procedure were discussed at length and informed written consent was obtained.? Time-out completed for verification of correct patient, procedure and site.? Staff present during time-out: Gerald Lopez RN,? Rahul Pedro MD, Jane Farris [facility], Time Out Time__1201 Patient prepped and procedure performed in usual sterile fashion. Risk of injury related to use of Diode laser and/or laser devices__CR___ ? Serial number of laser used :? [id number] Control panel self test performed, electrical cords in good condition, floor is dry, basin of water available, fire extinguisher in close proximity_CR__ Polycarbonate goggles available and Laser warning signs outside of doors___CR__ Eye protection provided to patient and staff in room_CR___ Use of laser retardant drapes and dull blackened instruments as directed__CR___ Use of nonflammable prep solutions and use of saline soaked sponges to protect tissues as indicated _CR___ Length __9__ cm Laser operated by __Dr. Pedro Physician verbal confirmation laser locked in place__CR__ Laser start time (date and time) _07/13/2024@__1214 Laser stop time(date and time) _07/13/2024@__1215 Burroughs _8.0___ Average laser use _537 Joules Average laser use____67____seconds Pulse continuous ___CR_? Pulse intermittent ___ Amount of Tumescent used __100cc____ Evaluated patient for signs and symptoms of electrical injury __CR___ ? Skin clear at insertion site __CR___ Patient tolerated procedure well.? Left leg Coban dressing applied to access site.? Applied Left thigh high leg compression stocking. Will return on 07/20/2024 for Left leg limited venous ultrasound and exam. IRahul MD personally performed the services described in this documentation, as scribed by Gerald Lopez RN in my presence and it is both accurate and complete. I, Gerald Lopez RN, am scribing for, and in the presence of, Dr. Rahul Pedro and in the presence of the patient.
--- NOTE | 2024-07-12 15:41 | W.VEIN ---
Discharge Plan Discharge Disposition: Home, Self-Care Outpatient Diagnostics: VC Facility EST LMTD (Routine) Timeframe: 2 Weeks Facility: [facility] - Location: Vein Center Ordered By: Rahul Pedro VC EXT Venous LT Limited (Routine) Timeframe: 2 Weeks Facility: [facility] - Location: Vein Center Ordered By: Rahul Pedro Follow Up Appointments: 07/20/2024 Plan of Treatment: f/u evaluation with physician along with left leg limited u/s Patient Instructions: Endovenous Ablation (DC) Print Language: Swedish Discharge Date/Time: 07/13/24 12:00
[2024-07-13] MEDS: LIDOCAINE HCL 1% 100 MG/10 ML MDV INJ (11:34)
[2024-07-13] MEDS: 0.9 % SODIUM CHLORIDE 500 ML, LIDOCAINE HCL 20 ML, SODIUM BICARBONATE 10 MEQ INJ (11:34)
--- NOTE | 2024-07-13 11:34 | VEIN_ITS ---
[address] [address] Patient Name: RACHEL NGUYEN MRN: [id number] date: 1955 Sex: M Assigned Patient Location: Current Patient Location: Accession/Order Number: [id number] Exam Date: 07/13/2024 11:38 Report Date: 07/13/2024 13:33 At the request of: MARY RATLIFF Procedure: VC Endovenous Ablation 1VeinLT EXAMINATION: VC Endovenous Ablation 1VeinLT HISTORY: I83.813 - Varicose veins of bilateral lower extremities w... The risks and benefits of the procedure had been previously discussed, and were rediscussed at length. Informed written consent was obtained. Gerald Lopez RN and Jane Sprague RDMS assisted. Time out procedure was performed. The left lower extremity was prepared and draped in the usual sterile fashion to allow knee flexion in the sterile field. Duplex ultrasound probe was draped in a sterile cover, sterile transmission gel was used. Venous mapping was performed with the areas of dilation and large tributaries marked. The total length was 9 cm from the entry upper thigh to 3 cm below the Saphenofemoral junction. The diameter of the left anterior accessory saphenous vein ranged from 5.9 mm. A 30 gauge needle and 1% buffered lidocaine was used to anesthetize the entry site. A 4 mm incision was made with a scalpel and the saphenous vein was entered percutaneously under direct ultrasound guidance with a micropuncture set, a single stick was successful in gaining access. A micro-guide wire was inserted and the needle removed. A micro-set including a dilator was inserted over the microwire and the needle and dilator were removed. A guide wire was inserted through the micro-set and guided through the saphenous vein to the saphenofemoral junction. The dilator was removed and an introducer sheath was inserted over the wire until the end of the sheath entered the saphenofemoral junction. The dilator and wire were removed and the 600 micron fiber was introduced and placed and positioned so that it extended beyond the sheath and was 3 cm distal to the saphenofemoral or saphenopopliteal junction. Final position of the fiber was determined by ultrasound guidance and duplex imaging. Tumescent anesthetic was delivered by ultrasound guidance. 100 cc of fluid was delivered along the entire course of the saphenous vein. The solution consisted of 1000 cc of normal saline with 40 mL of 1% lidocaine and 20 mL of sodium bicarbonate. A final positioning check was made. The energy source was turned on by means of the foot pedal and the fiber and sheath were withdrawn. The total number of Joules delivered was 537. The laser was active for 67 seconds under continuous pulse, average laser use of 8 J. Laser start time: 12:14 PM Laser stop time: 12:15 PM Date: 07/13/2024. A duplex ultrasound revealed compressibility and flow at the saphenofemoral junction immediately after the procedure. Hemostasis at the access site was achieved. The skin incision of the saphenous vein was closed with a 4 x 4. A compression stocking was applied. Postop instructions were given. A follow up appointment was recommended and scheduled. The patient tolerated the procedure well. Electronically authenticated by: MARY RATLIFF Date: 07/13/2024 13:33
[2024-07-13 11:39] VITALS: BP 145/62; PULSE 81; O2SAT 96
== END 2024-07-13 12:00 | disposition home or self-care (01) ==
LOC: VC 11:32
PROVIDERS: PCP Radiology Diagnostic Radiology; Visit Provider Radiology Diagnostic Radiology
DX: I83.813 Varicose veins of bilateral lower extremities with pain (principal)
CPT/HCPCS: 36478

== ENCOUNTER 2024-07-20 08:45 | Outpatient (OUT) | payer OTHER, SELFPAY ==
--- NOTE | 2024-07-20 08:45 | VEIN_ITS ---
Patient Name: RACHEL NGUYEN MR#: [id number] : 1955 Exam Date: 07/20/2024 Ordering Doctor: DR MARY RATLIFF M.D. RADIOLOGY REPORT PROCEDURE: VC EXT VENOUS LT LIMITED COMPARISON: VC EXT VENOUS LT LIMITED, 06/01/2024. INDICATIONS: I80.02 - Phlebitis and thrombophlebitis of superficial ve... TECHNIQUE: Lower extremity niño scale and Duplex Doppler evaluation of the deep venous system from the inguinal ligament through the calf veins. FINDINGS: REGION: Left lower extremity. THROMBI: Negative for DVT. Heat induced thrombus visualized 1.9cm from the SFJ. The heat induced thrombus extends from groin to mid thigh. COMPRESSIBILITY: Non-compressible segments corresponding to thrombus FLOW: Areas of no flow corresponding to thrombus CONCLUSION: Post laser occlusion of the left anterior accessory saphenous vein with heat induced thrombus 1.9 cm from the saphenofemoral junction. No deep vein thrombus Dictated by: Guillermo Gurrola MD on 07/20/2024 at 09:08 Approved by: Guillermo Gurrola MD on 07/20/2024 at 09:09
--- NOTE | 2024-07-20 08:45 | VEIN_ITS ---
Patient Name: RACHEL NGUYEN MR#: [id number] : 1955 Exam Date: 07/20/2024 Ordering Doctor: DR MARY RATLIFF M.D. RADIOLOGY REPORT PROCEDURE: FACILITY EST [facility] - OFFICE VISIT FOLLOW UP COMPARISON: [facility] EST LMTD, 06/22/2024. [facility] EST LMTD, 06/01/2024. PROGRESS NOTES: The patient reports no significant problems following intravenous laser ablation of the left anterior accessory saphenous vein. The patient has worn his compression stocking. The patient has continued to exercise. Physical exam demonstrates no bruising. The anterior accessory saphenous vein cannot be palpated likely related to patient habitus. No erythema or to suggest cellulitis or thrombophlebitis. The incision is healed Review of the ultrasound performed the same day demonstrates occlusive thrombus extending throughout the treated left anterior accessory saphenous vein. Heat induced thrombus is 1.9 cm from the saphenofemoral junction. No deep vein thrombus. The patient expressed a desire to proceed with treatment of incompetent varicose veins with micro foam chemical ablation. VEIN/[facility] EST LMTD IMPRESSION: 1. Successful ablation of the left anterior accessory saphenous vein 2. Persistent bilateral incompetent varicose veins. PLAN: Micro foam chemical ablation right leg incompetent varicose veins Nurse notes, history and physical were reviewed and confirmed, see attached forms. The nurse was present throughout the physical exam and consultation Dictated by: Guillermo Gurrola MD on 07/20/2024 at 09:23 Approved by: Guillemro Gurrola MD on 07/20/2024 at 09:50
--- NOTE | 2024-07-20 08:48 | V.VEINS.HP ---
Varicose Veins Patient in today for follow up ultrasound post EVLT of left AASV Guillermo Smith MD personally performed the services described in this documentation, as scribed by Madai Gage RVT, RDMS in my presence and it is both accurate and complete. Madai Smith RVT, RDMS, am scribing for, and in the presence of, Dr. Guillermo Gurrola and in the presence of the patient. thigh: bilateral, knee: bilateral, calf: bilateral, ankle: bilateral and delaney: bilateral aching and dull 3 2 years Worsened in recent months: Yes walking elevating extremities and compression stockings Reports heaviness, restless legs, limb pain, edema and leg edema History of lower extremity trauma: No Superficial thrombophlebitis: No Family history of varicose veins: no Has patient had previous lower extremity venous surgery: No Patient has previously received the following treatment(s) for lower extremity varicose veins: Reports none Does patient have a history of : not applicable Does patient intend to have future pregnancies: not applicable Has patient had lower extremity venous scan with relux testing: Yes Support hose used: Yes Problems walking or doing physical activity: Yes How does it affect you: unable to walk long distances Do you walk much: No Do you stand much: Yes Medication compliance: good Review of Systems ROS Narrative Guillermo Smith MD personally performed the services described in this documentation, as scribed by Madai Gage RVT, RDMS in my presence and it is both accurate and complete. Madai Smith RVT, RDMS, am scribing for, and in the presence of, Dr. Guillermo Gurrola and in the presence of the patient. Status of ROS 10 or more systems reviewed and unremarkable except as noted in history and below Cardiovascular Reports: edema and swelling of feet/ankles Musculoskeletal Reports: extremity pain, extremity swelling, joint pain, joint swelling and muscle cramps Integumentary/Breast Reports: rash, itching and redness [facility] Medical History (Updated 06/01/24 @ 07:33 by Jane Farris) Phlebitis and thrombophlebitis of superficial vessels of left lower extremity ?I80.02 - Phlebitis and thrombophlebitis of superficial vessels of left lower extremity (ICD-10) Phlebitis and thrombophlebitis of superficial vessels of right lower extremity ?I80.01 - Phlebitis and thrombophlebitis of superficial vessels of right lower extremity (ICD-10) Hemorrhoids, internal ?K64.8 - Other hemorrhoids (ICD-10) Pain due to varicose veins of both lower extremities ?I83.813 - Varicose veins of bilateral lower extremities with pain (ICD-10) Tinea pedis ?B35.3 - Tinea pedis (ICD-10) Sleep apnea ?G47.30 - Sleep apnea, unspecified (ICD-10) Restless leg ?G25.81 - Restless legs syndrome (ICD-10) Onychomycosis ?B35.1 - Tinea unguium (ICD-10) Obesity ?E66.9 - Obesity, unspecified (ICD-10) Left ventricular failure ?I50.1 - Left ventricular failure, unspecified (ICD-10) Hypokalemia ?E87.6 - Hypokalemia (ICD-10) Hyperglycemia ?R73.9 - Hyperglycemia, unspecified (ICD-10) Hyperlipemia ?E78.5 - Hyperlipidemia, unspecified (ICD-10) Accelerated essential hypertension ?I10 - Essential (primary) hypertension (ICD-10) Elevated PSA ?R97.20 - Elevated prostate specific antigen [PSA] (ICD-10) Cardiomyopathy ?I42.9 - Cardiomyopathy, unspecified (ICD-10) Anxiety ?F41.9 - Anxiety disorder, unspecified (ICD-10) Surgical History (Updated 07/13/24 @ 11:47 by Gerald Lopez) Status post laser ablation of incompetent vein ?Z98.890 - Other specified postprocedural states (ICD-10) Status post laser ablation of incompetent vein ?Z98.890 - Other specified postprocedural states (ICD-10) Status post laser ablation of incompetent vein ?Z98.890 - Other specified postprocedural states (ICD-10) Status post laser ablation of incompetent vein ?Z98.890 - Other specified postprocedural states (ICD-10) S/P TURP ?Z90.79 - Acquired absence of other genital organ(s) (ICD-10) Family History (Updated 04/06/24 @ 10:04 by Destini Carlin RN) Other Family history of CHF (congestive heart failure) Family history of cancer Family history of hypertension Family history of myocardial infarction Social History (Updated 04/06/24 @ 10:05 by Destini Carlin RN) Within the past year, how often did you have a drink containing alcohol: never Score interpretation: A score less than 4 is consistent with normal alcohol consumption. Smoking status: Never smoker Non-prescribed substance use: denies use Meds Home Medications and Allergies Home Medications ?Medication ?Instructions ?Recorded ?Confirmed ?Type amiloride 5 mg tablet 5 mg PO DAILY 04/06/24 04/06/24 History amlodipine 10 mg tablet 10 mg PO DAILY 04/06/24 04/06/24 History aspirin 325 mg tablet 325 mg PO DAILY 04/06/24 04/06/24 History carvedilol 25 mg tablet (Coreg) 25 mg PO BID 04/06/24 04/06/24 History doxazosin 4 mg tablet (Cardura) 4 mg PO QPM 04/06/24 04/06/24 History finasteride 5 mg tablet 5 mg PO DAILY 04/06/24 04/06/24 History hydralazine .Route DAILY 04/06/24 History hydrochlorothiazide 25 mg tablet 25 mg PO DAILY 04/06/24 04/06/24 History losartan 100 mg tablet 100 mg PO DAILY 04/06/24 04/06/24 History lovastatin 30 mg PO QAM 04/06/24 04/06/24 History montelukast 10 mg tablet 10 mg PO DAILY 04/06/24 04/06/24 History niacin 500 mg capsule,extended 500 mg PO DAILY 04/06/24 04/06/24 History release paroxetine HCl 20 mg tablet 20 mg PO DAILY 04/06/24 04/06/24 History potassium chloride 10 mEq 10 meq PO DAILY 04/06/24 04/06/24 History tablet,extended release (Klor-Con) apixaban 5 mg tablet (Eliquis) 5 mg PO BID 05/04/24 05/04/24 History Allergies Allergy/AdvReac Type Severity Reaction Status Date / Time clarithromycin Allergy Unknown Unknown Verified 04/06/24 09:39 Exam Narrative Exam Narrative: IGuillermo MD personally performed the services described in this documentation, as scribed by Madai Gaeg RVT, RDMS in my presence and it is both accurate and complete. IMadai RVT, RDMS, am scribing for, and in the presence of, Dr. Guillermo Gurrola and in the presence of the patient. Constitutional Vital Signs, click to edit/add: Last Vital Signs Pulse 70 04/20/24 09:25 Resp 18 04/20/24 09:25 BP 120/64 04/20/24 09:25 Pulse Ox 96 04/20/24 09:25 Documenting provider has reviewed patient's vital signs: yes Common normals: oriented x3 Nutritional appearance: overweight Lymph Lymphatic: no lymphedema noted Cardio Peripheral pulses: posterior tibial pulses present and dorsalis pedis pulses present Extremity General: calf tenderness, edema and other findings Right lower extremity: lower leg Right lower leg: inspection and palpation Left lower extremity: lower leg Left lower leg: inspection and palpation Neuro Common normals: oriented x3 Results Imaging Venous US: Radiologist's impression: The ultrasound demonstrates Heat induced thrombus visualized 1.9cm from the SFJ. The heat induced thrombus extends from groin to mid thigh. Assessment and Plan Assessment and Plan (1) Phlebitis and thrombophlebitis of superficial vessels of left lower extremity: Plan Patient in today for follow up ultrasound of lower extremity following treatment of EVLT of left leg AASV completed on 07/13/24. IGuillermo MD personally performed the services described in this documentation, as scribed by Madai Gage RVT, RDMS in my presence and it is both accurate and complete. Madai Smith RVT, RDMS, am scribing for, and in the presence of, Dr. Guillermo Gurrola and in the presence of the patient.
--- OUTSIDE RECORDS SUMMARY | 2024-07-20 08:49 | XMS_ITS | CCD ---
Author Organization [facility] Care Team Providers Care Asparagus Cutter Name Role Phone Mecca Nelsonaret Unavailable Unavailable Omar Danyell Unavailable Unavailable [facility] Unavailable Unavailable Omar Danyell Unavailable Unavailable Mecca Nelsonaret Unavailable Unavailable Terri Santos Unavailable Unavailable Terri Santos Unavailable Chriss Marie Unavailable Unavailable Terri Santos Unavailable Unavailable Unavailable Terri Santos Primary Care Physician MD Terri Santos Primary Care Provider MD Luiz Morrison Attending Provider [phone] MD Burak Rangel Attending Provider Burak Rangel Unavailable MD Terri Santos Primary Care Provider MD Luiz Morrison Attending Provider [phone] Terri Santos DO Primary Care Provider [phone] Tom, Dr. Terri Pearce Primary Care Unava [...] DOLCEADAM Attending Unavailable DOLADAM HOLLINS Attending Unavailable ELYSSA ADLER Attending Unavailable LILIANA WALLER Attending Unavailable [...] (antibiotic) (1 source) Clarithromycin Drug Allergy Unknown [facility] (1 source) No Known Medication Allergies; Translations: [No Known Medication Allergies] Propensity to adverse reactions to drug (disorder) [facility] (9 sources) shellfish, unspecified Allergy to substance (finding) -[facility] [address] DO Work Phone: (16 sources) Clarithromycin; Translations: [clarithromycin] Drug Allergy Unknown [facility] [place] (2 sources) Shellfish; Translations: [SHELLFISH CONTAINING PRODUCTS] Drug Allergy 3 [facility] (2 sources) Shellfish; Translations: [SHELLFISH DERIVED] Propensity to adverse reactions 4 Other [facility] (7 sources) Clarithromycin Allergy to substance 3 Unknown [facility] Work Phone: Medications Current Medications Medication Drug Class(es) Dates Sig (Normalized) Sig (Original) acetaminophen 325 mg / HYDROcodone bitartrate 7.5 mg oral tablet (2 sources) Opioid Agonist Start: 02-12-2022 take 1 tablet by mouth once [place] 325 mg-7.5 mg oral tablet 1 tab(s), [...] Start: 06-27-2019 take 2 tablets by mo [facility] once daily aMILoride (MIDAMOR) 5 mg tablet [...] nce daily. apixaban 5 mg oral tablet (9 sources) Factor Xa Inhibitor Start: 06-20-2024 take [...] Acid 7540 MG / POLYETHYLENE GLYCOL 3350 16210 MG / Potassium Chloride 1200 MG / Sodium Ascorbate 01399 MG / Sodium Chloride 3200 MG Powder for Oral Solution) / 1 (POLYETHYLENE GLYCOL 3350 785479 MG / Potassium Chloride 1000 MG / [...] extended release oral tablet (1 source) Uncompetitive I-vfkcsx-D-aspartate Receptor Antagonist, Sigma-1 Agonist Start: End: take [...] Daily, # 90 tab(s), Refills(s) 3, Pharmacy: [facility], 178, cm, 06/15/23 13:22:00 EST, [...] (20 sources) Angiotensin 2 Receptor Jonathan Start: take 1 tablet by mouth [...] Ordered Start: 06-12-2019 take 1 tablet by [facility] once daily lovastatin (MEVACOR) 20 mg tablet TAKE 1 & 1 2 (ONE & ONE HALF) TABLETS BY MOUTH ONCE DAILY 9 06/12/2019 Active Start: 09-23-2017 take 3 tablets by mo [facility] once daily lovastatin 10 mg Tab 30 mg = 3 tab(s), Oral, Daily, Refills(s) 0 Start Date: 09/23/17 Status: Ordered take 2 tablets by mo [facility] every other day lovastatin (Mevacor) 20 [...] Refills: 0 Ordered: 31-Aug-2021 DO Active omega 4-bsx-kdk-fish oil 360 mg-108 mg- 180 mg-1,200 mg capsule (1 source) End: 09-30-2023 take 1 capsule by mouth once daily omega 1-jow-gdu-fish oil 360 mg-108 mg- 180 mg-1,200 mg capsule Take 1 capsule by mouth once daily. 0 09/30/2023 Discontinued (Other) [place]-3 Fatty Acids (3 sources) Start: 04-13-2022 take 2000 mg by mouth once daily at bedtime [place]-3 Fatty Acids Active 2000 MG PO Daily at bedtime April 13, 2022 12:00am [place]-3 Fatty Acids ([place] 3 Fish Oil) Capsule (2 sources) Start: 04-13-2022 take 1 capsule by mouth once daily at bedtime [place]-3 Fatty Acids ([place] 3 Fish Oil) Capsule Active 2000 MG [...] 12:00am Start: 10-07-2011 take 7 tablets by [facility] once daily [place]-Con 10 mEq 70 mEq = 7 tab(s), Oral, Daily, # 210, Refills(s) 0, Prophylaxis Start Date: 10/07/11 Status: Ordered Start: 10-07-2011 take 7 tablets by [facility] once daily [place]-Con 10 mEq 70 mEq = 7 tab(s), Oral, Daily, # 210, Refills(s) 0, Prophylaxis Start Date: 10/07/11 Status: Ordered Start: 10-07-2011 take 7 tablets by [facility] once daily [place]-Con 10 [...] procedure, # 2 tab(s), Refills(s) 0, Pharmacy: [facility], 178, cm, 11/04/21 10:45:00 EDT, Height/Length [...] 0 Refills: 0 Ordered: 31-Aug-2021 DO Active [place]-3 CAPS (8 sources) [place]-3 CAPS LADONNA E DIRECTED. Quantity: 0 Refills: [...] Vitamin D (2 sources) Vitamin D Not-Ta [place] Vitamin D Active Vitamin D 1000 intl [...] sources) Long-term current use of anticoagulant; Translations: [intermediate frame tender (current) use of anticoagulants] Onset: 4 05-10-2024 [...] Chronic Other nutritional; endocrine; and metabolic disorders (7 sources) Obesity caused by energy imbalance; Translations: [...] 05-27-2023 05-27-2023 Episodic Other connective tissue disease (8 sources) Pain of toe of right foot; Translations: [Pain in right toe(s)] Onset: 01-04-2023 01-04-2023 Episodic Other connective tissue disease (8 sources) Pain of toe of left foot; Translations: [Pain in left toe(s)] Onset: 01-04-2023 01-04-2023 Episodic Other skin disorders (7 sources) Skin tag; Translations: [Other hypertrophic disorders of the skin] Onset: 12-18-2023 12-18-2023 Episodic Spondylosis; intervertebral disc disorders; other back problems (14 sources) Acute back pain with sciatica; Translations: [Lumbago with sciatica, right side] Onset: 03-11-2023 03-11-2023 Episodic Unclassified (8 sources) Never smoked tobacco; Translations: [Never a smoker] Results Test Name Value Interpretation Reference Range Facility Ambulatory Visit Summaryon 1 08-20-2023 Ambulatory Visit Summary Ambulatory Visit Summary [facility] :1955 Visit Date:06/20/2024 Ambulatory Visit Instructions Your Diagnosis BPH with urinary obstruction History of elevated PSA Hypogonadism male Anticoagulated Tests Performed MRI Pelvis (Soft Tissue) w/ + w/o contrast -- Results Pending -- Please visit your patient portal for your results or contact your primary care physician. Your Care Team Attending Physician - TAMIKO SAEZ, Luiz Jackson Primary Care Physician - Christin SAEZ, Liliana Noguera This Is Your Medications List finasteride (finasteride 5 mg Tab) Contact prescribing physician if questions or concerns amiloride (amiloride 5 mg oral tablet) amlodipine (amLODIPine 10 mg Tab) apixaban (Eliquis 5 mg oral tablet) aspirin (aspirin 325 mg Tab) calcium carbonate [...] operation, Tonsillectomy. Discharge Vitals Heart Rate (Peripheral) 78 Respiratory Rate 16 Blood Pressure 138/70 Height 70 in Height 178 cm Weight 300.931 lb Weight 136.5 kg BMI 43.08 What to do next You Need to Schedule the Following Appointments Follow Up with TAMIKO SAEZ, ELVIRA Blanco When: Where: [facility] [address] , [place] [address]- Medications What How Much When Why Instructions Unchanged finasteride (finasteride 5 mg Tab) 1 Tablets By Mouth Every day Unchanged amiloride (amiloride 5 mg oral tablet) See instructions Take 2 tablets by mouth once daily Contact prescribing physician if questions or concerns Unchanged amlodipine (amLODIPine 10 mg Tab) 1 Tablets By Mouth Every day Contact prescribing physician if questions or concerns Unchanged apixaban (Eliquis 5 mg oral tablet) 1 Tablets By Mouth 2 times a [...] mL IM Angelica) 300 Milligram Intramuscular Every (more content not included)... Normal [facility] Ambulatory Visit Summary Ambulatory Visit Summary [facility] :1955 Visit Date:06/20/2024 Ambulatory Visit Instructions Your Diagnosis BPH with urinary obstruction History of elevated PSA Hypogonadism male Anticoagulated Tests Performed MRI Pelvis (Soft Tissue) w/ + w/o contrast -- Results Pending -- Please visit your patient portal for your results or contact your primary care physician. Your Care Team Attending Physician - Luiz MORRISON MD Primary Care Physician - Liliana Waller MD This Is Your Medications List finasteride (finasteride 5 mg Tab) Contact prescribing physician if questions or concerns amiloride (amiloride 5 mg oral tablet) amlodipine (amLODIPine 10 mg Tab) apixaban (Eliquis 5 mg oral tablet) aspirin (aspirin 325 mg Tab) calcium carbonate [...] operation, Tonsillectomy. Discharge Vitals Heart Rate (Peripheral) 78 Respiratory Rate 16 Blood Pressure 138/70 Height 70 in Height 178 cm Weight 300.931 lb Weight 136.5 kg BMI 43.08 What to do next You Need to Schedule the Following Appointments Follow Up with TAMIKO SAEZ, Luiz Jackson, URL When: Where: [facility] [address], [place] [address]- Medications What How Much When Why Instructions Unchanged finasteride (finasteride 5 mg Tab) 1 Tablets By Mouth Every day Unchanged amiloride (amiloride 5 mg oral tablet) See instructions Take 2 tablets by mouth once daily Contact prescribing physician if questions or concerns Unchanged amlodipine (amLODIPine 10 mg Tab) 1 Tablets By Mouth Every day Contact prescribing physician if questions or concerns Unchanged apixaban (Eliquis 5 mg oral tablet) 1 Tablets By Mouth 2 times a [...] mL IM Angelica) 300 Milligram Intramuscular Every (more content not included)... Normal [facility] Urology Office/Clinic Noteon 06-20-2024 Urology Office/Clinic Note Urology Office/Clinic Note Chief Complaint 1 year follow up HPI Staff 1 year follow up w/PSA & JEANNA Previous PSA 04/30/23 - 0.50, Current PSA 0.6 05/25/24-[facility] Previous DX: BPH with urinary obstruction, elevated PSA, gross hematuria, male hypogonadism, urge incontinence. S/P TURP done 04/27/22, MR/US fusion guided prostate biopsy done 01/21/22, Urodynamics done 12/08/21. Finasteride 5 mg qd Dysuria: rarely have pain or burning Incomplete bladder emptying: denies Hematuria: denies visible blood Frequency: denies Urgency: denies Nocturia: 1x a night Stream: denies hesitancy, denies weak stream Leaking: denies Post void dripping: denies Wearing pads/ Depends: denies Urge incontinence: denies Stress incontinence: denies Incontinence without Sensory Awareness: denies Abdominal pain: denies Flank pain: pre existing back pain Sexual complaints: denies History of Present Illness Tests reviewed: PSA I have reviewed the previous health record information and history for this patient from Dr. Morrison. I have reviewed and verified the staff HPI to be accurate for this encounter. Review of Systems PHQ Score Initial Depression Screen Score: 0 SCORE ROS - Provider Constitutional: denies weight loss, [...] HPI. Physical Exam Vitals & Measurements HR: 78(Peripheral) RR: 16 BP: 138/70 HT: 70 in HT: 178 cm WT: 136.5 kg WT: 300.931 lb BMI: 43.08 General Appearance: alert, no distress, well nourished, well developed male Assessment/Plan 1. BPH with urinary obstruction (N40.1: Benign prostatic hyperplasia with lower urinary tract symptoms) S/P TURP 04/27/22. Pt unable to provide urine sample today. Taking Doxazosin [address] Allsop, and Finasteride 5 mg qd. IPSS 6 (5). Urination overall stable. Intermittent sxs. Thought he had a mild UTI but shares sxs resolved w/in a day or two. -Dramatically increase fluid intake if suspecting UTI. Notify office if sxs worsening. 2. History of elevated PSA (Z87.898: Personal history of other specified conditions) PSA: 11/2021 - started Finasteride between 10/2021 and 12/202112/10/21 - 23.2 *presumed lab error 12/22/21 - 5.9 (11.8) 04/30/23 - 0.5 (1.0) 05/25/24 - 0.6 (1.2) MRI of prostate 01/21/22 - PI-RADS 4 lesion posterior aspect of L PZ level of mid gland 1.4 x 1.0 cm. A second lesion, PI-RADS 5 posterior aspect of the L PZ level of the base 1.4 x 0.7 cm. Third lesion, PI-RADS 5 L PZ level of mid gland 1.7 x 0.9 cm. There appears to be loss of the capsule w/in this region suggestive of extracapsular spread. A focal area involving the L iliac bone possibly representing a bone island. Prostate volume 142 cc. TP TRUS/bx 03/02/22 - Neg. PSA stable. Will cont to monitor. There is still concern regarding his MRI findings since there were three lesions id'd and two were the highest grade. Recommended repeating MRI which could lead to a fusion bx if lesions are id'd again. Rationale, R/Bs discussed. Pt amenable. Follow up pending MRI below or sooner if needed. Pt understands and agrees with plan. -Schedule prostate MRI. If neg, f/u in 1 yr with PSA. -Will schedule with fusion TRUS of Prostate with Biopsy pending MRI if positive. The procedural risks, benefits, details, and treatment alternatives have been discussed with the patient. These include minimal to severe bleeding, infection, blood in the semen, inability to urinate, and severe infection requiring hospitalization and IV antibiotics, among others. Full informed consent has been obtained. Will order Local anesthesia. 3. Hypogonadism male (E29.1: Testicular hypofunction) Receiving T IM 300 mg q4wk through Dr. Velasquez. -Cont management with Dr. Velasquez. 4. Anticoagulated (Z79.01: intermediate frame tender (current) use of anticoagulants) Eliquis. Elevated risk of periop complications. Follow-up With When Contact Information Luiz MORRISON MD, URL [facility] [address], [place] [address]- Additional Instructions: f/u pending MRI prostate Patient Education Benign Prostatic Hyperplasia I, Angelica Colmenares, personally scribed for Dr. Morrison on 06/20/2024 13:39:34. . Documentation recorded by the scribe, Angelica Colmenares, accurately reflects the services(s) I performed and decisions made by me. Authenticated by Dr. Morrison on 06/20/2024 13:41:50. Problem List/Past Medical History Ongoing Abnormal results of liver function studies Anticoagulated Anxiety asthma BMI 39.0-39.9,adult BPH with urinary obs (more content not included)... Normal [facility] Comment on above: Result Comment: Elec tronically Signed By: Luiz MORRISON MD\.br\Date and Time Signed: 06/20/24 13:41 EST\.br\Electronically Co-Signed By: Angelica Colmenares\.br\Date and Time Co-Signed: 06/20/24 13:39 EST FUNDUS PHOTOS OU (BOTH EYES) on 06-01-2024 [facility] Radiology Study observation (narrative) [facility] OCT MACULA CIRRUS OU (BOTH E YES)on 06-01-2024 [facility] Radiology Study observation (narrative) [facility] CHEMISTRYOrdered By: SYSTEM SYSTEM on 05-25-2024 [...] used for this result was chemiluminescence using [employer]'s Access Hybritech PSA reagent. PSA Totalon 05-25-2024 Prostate specific Ag [Mass/Vol] 0.6 ng/mL Normal 0.1-3.5 [facility] Comment on above: Result Comment: The concentration of PSA determined by different manufacturers can vary due to differences in assay methods and reagent specificity. Values obtained from different assay methods cannot be used interchangeably. The methodology used for this result was chemiluminescence using [employer]'s Access Hybritech PSA reagent. Performed By: #### 1 [id number] #### [facility] [address] [place] [address] US LE Venous Duplex Righton 11-29-2023 US [...] Kitchen M.D. Transcribed by: REGLA Technologist: HW Normal [facility] Consent for Treatmenton 11-06 Consent for Treatment [id number] 0TIFF Normal [facility] Physician Orderon 11-18-2023 Physician Order [id number] 0TIFF [facility] CBC w/ Auto Diffon 4 Basophils/100 WBC (Bld) 0.8 % Normal 0.0-2.0 [facility] Comment on above: Performed By: #### 2 499306, [id number], 0746355, 3497155 #### [facility] [address] [place] [address] Basophils/Leukocytes Auto (Bld) [Pure # fraction] 0.1 E9/L Normal 0.0-0.2 [facility] Comment on above: Performed By: #### 2 821934, [id number], 6290633, 7254954 #### [facility] [address] [place] [address] Eosinophils (Bld) [#/Vol] 0.3 E9/L Normal 0.0-0.5 [facility] Comment on above: Performed By: #### 2 618865, 58831995, 3042780, 1940197 #### [facility] [address] [place] [address] Eosinophils/100 WBC (Bld) 3.4 % Normal 0.0-8.0 [facility] Comment on above: Performed By: #### 2 692255, 57337959, 9637662, 0592380 #### [facility] [address] [place] [address] Erythrocyte distribution width (RBC) [Ratio] 13.6 % Normal 10.9-14.2 [facility] Comment on above: Performed By: #### 2 079080, 61146037, 3466802, 6395106 #### [facility] [address] [place] [address] Hematocrit (Bld) [Volume fraction] 39.9 % Normal 37.7-49.0 [facility] Comment on above: Performed By: #### 2 138331, 47159236, 1193509, 9278760 #### [facility] [address] [place] [address] Hemoglobin (Bld) [Mass/Vol] 13.7 g/dL Normal 13.5-17.5 [facility] Comment on above: Performed By: #### 2 988222, 73673444, 7321399, 4492522 #### [facility] [address] [place] [address] Lymphocytes (Bld) [#/Vol] 1.5 E9/L Normal 1.0-4.0 [facility] Comment on above: Performed By: #### 2 522567, 88372913, 4070220, 4920566 #### [facility] [address] [place] [address] Lymphocytes/100 WBC (Bld) 20.2 % Normal 14.0-50.0 [facility] Comment on above: Performed By: #### 2 717130, 57153923, 4380230, 1677355 #### [facility] [address] [place] [address]896 MCH (RBC) [Entitic mass] 30.4 pg Normal 27.0-34.0 [facility] Comment on above: Performed By: #### 2 979737, 97820338, 1744441, 5696272 #### [facility] [address] [place] [address] MCHC (RBC) [Mass/Vol] 34.3 g/dL Normal 31.4-36.0 [facility] Comment on above: Performed By: #### 2 877757, 17889630, 1480562, 3021925 #### [facility] [address] [place] [address] MCV (RBC) [Entitic vol] 88.6 fL Normal 80.0-100.0 [facility] Comment on above: Performed By: #### 2 788052, 05301916, 2098102, 1297456 #### [facility] [address] [place] [address] Monocytes (Bld) [#/Vol] 0.7 E9/L Normal 0.2-1.0 [facility] Comment on above: Performed By: #### 2 582003, 35476565, 8117832, 1717990 #### [facility] [address] [place] [address] Neutrophils (Bld) [#/Vol] 5.0 E9/L Normal 2.0-7.5 [facility] Comment on above: Performed By: #### 2 820597, 38942754, 6097929, 5601747 #### [facility] [address] [place] [address] Neutrophils/100 WBC (Bld) 66.1 % Normal 36.0-75.0 [facility] Comment on above: Performed By: #### 2 735557, 43806483, 4125972, 9451051 #### [facility] [address] [place] [address] Platelet mean volume (Bld) [Entitic vol] 9.1 fL Normal 6.4-10.8 [facility] Comment on above: Performed By: #### 2 784835, 41370522, 2247739, 8519367 #### [facility] [address] [place] [address] Platelets (Bld) [#/Vol] 216.0 E9/L Normal 150.0-500.0 [facility] Comment on above: Performed By: #### 2 824335, 07639871, 2330970, 1937840 #### [facility] [address] [place] [address] RBC (Bld) [#/Vol] 4.5 E12/L Normal 4.3-5.9 [facility] Comment on above: Performed By: #### 2 294669, 79825454, 4628843, 8479594 #### [facility] [address] [place] [address] WBC corrected for nucl RBC Auto (Bld) [#/Vol] 7.5 E9/L Normal 4.0-11.0 [facility] Comment on above: Performed By: #### 2 582515, 23062914, 7152387, 1073211 #### [facility] [address] [place] [address] CHEMISTRYOrdered By: SYSTEM SYSTEM on 10-21-2023 Albumin [...] 10-21-2023 Albumin [Mass/Vol] 4.3 g/dL Normal 3.3-5.0 [facility] Comment on above: Performed By: #### 2 347189, 23230440, 2788641, 0495030 #### [facility] [address] [place] [address] Albumin/Globulin (S) [Mass conc ratio] 1.7 Normal 1.1-2.2 [facility] Comment on above: Performed By: #### 2 584994, 46536953, 7730638, 4672220 #### [facility] [address] [place] [address] ALP [Catalytic activity/Vol] 66 Int._Unit/L Normal 21-98 [facility] Comment on above: Performed By: #### 2 982257, 32439236, 0326126, 8798061 #### [facility] [address] [place] [address] ALT No additional P-5'-P [Catalytic activity/Vol] 17 Int._Unit/L Normal 6-46 [facility] Comment on above: Performed By: #### 2 824876, 90235961, 5952991, 1027632 #### [facility] [address] [place] [address] Anion gap [Moles/Vol] 13 mmol/L Normal 6-16 [facility] Comment on above: Performed By: #### 2 042536, 45416378, 2623766, 0302632 #### [facility] [address] [place] [address] AST [Catalytic activity/Vol] 17 Int._Unit/L Normal 5-43 [facility] Comment on above: Performed By: #### 2 771493, 39426324, 2962951, 3076500 #### [facility] [address] [place] [address] Bilirubin [Mass/Vol] 0.9 mg/dL Normal 0.0-1.[address] [facility] Comment on above: Performed By: #### 2 705932, 01907521, 0361690, 4501738 #### [facility] [address] [place] [address] Calcium [Mass/Vol] 8.7 mg/dL Low 8.9-11.1 [facility] Comment on above: Performed By: #### 2 549673, 30041695, 2029934, 0183127 #### [facility] [address] [place] [address] Chloride [Moles/Vol] 104 mmol/L Normal 101-[address] [facility] Comment on above: Performed By: #### 2 210067, 56661044, 3898726, 1802065 #### [facility] [address] [place] [address] CO2 [Moles/Vol] 27 mmol/L Normal 21-31 [facility] Comment on above: Performed By: #### 2 377505, 52664574, 8783980, 5703125 #### [facility] [address] [place] [address] Creatinine [Mass/Vol] 0.6 mg/dL Normal 0.5-1.3 [facility] Comment on above: Performed By: #### 2 213958, 89758535, 5686374, 9751324 #### [facility] [address] [place] [address] Globulin (S) [Mass/Vol] 2.6 g/dL Normal 1.4-4.0 [facility] Comment on above: Performed By: #### 2 436357, 10493977, 5222998, 8144202 #### [facility] [address] [place] [address] Glucose [Mass/Vol] 94 mg/dL Normal 55-199 [facility] Comment on above: Performed By: #### 2 883452, 50161464, 5837256, 3696910 #### [facility] [address] [place] [address] Potassium [Moles/Vol] 3.4 mmol/L Low 3.5-5.3 [facility] Comment on above: Performed By: #### 2 051182, 37888572, 2940789, 5014697 #### [facility] [address] [place] [address] Protein [Mass/Vol] 6.9 g/dL Normal 6.0-7.8 [facility] Comment on above: Performed By: #### 2 809627, 21495918, 2662221, 9724720 #### [facility] [address] [place] [address] Sodium [Moles/Vol] 141 mmol/L Normal 135-145 [facility] Comment on above: Performed By: #### 2 312675, 56624018, 9507384, 8468787 #### [facility] [address] [place] [address] Urea nitrogen [Mass/Vol] 9 mg/dL Normal 5-21 [facility] Comment on above: Performed By: #### 2 [id number], [id number], [id number], [id number] #### [facility] [address] [place] [address] Urea nitrogen/Creatinine [Mass ratio] 15 No Units Normal 10-20 [facility] Comment on above: Performed By: #### 2 [id number], [id number], [id number], [id number] #### [facility] [address] [place] [address] Consent for Treatmenton 10-06 Consent for Treatment [id number] [id number]#[id number] 0TIFF Normal [facility] HEMATOLOGYOrdered By: SYSTEM SYSTEM on 10-21-2023 [...] 10-21-2023 Cholesterol [Mass/Vol] 172 mg/dL Normal 120-200 [facility] Comment on above: Performed By: #### 2 [id number], [id number], [id number], [id number] #### [facility] [address] [place] [address] Cholesterol in HDL [Mass/Vol] 32 mg/dL Invalid Interpretation Code [facility] Comment on above: Result Comment: '>= 60 LOW RISK' '<= 40 HIGH RISK' Performed By: #### 2 [id number], [id number], [id number], [id number] #### [facility] [address] [place] [address] Cholesterol in LDL [Mass/Vol] 107 mg/dL Normal <=129 [facility] Comment on above: Performed By: #### 2 646302, [id number], [id number], [id number] #### [facility] [address] [place] [address] Cholesterol in VLDL [Mass/Vol] 38 mg/dL Normal 7-40 [facility] Comment on above: Performed By: #### 2 761350, [id number], [id number], [id number] #### [facility] [address] [place] [address] Triglyceride [Mass/Vol] 192 mg/dL High <=149 [facility] Comment on above: Performed By: #### 2 809509, [id number], [id number], [id number] #### [facility] [address] [place] [address] Physician Orderon 10-21-2023 Physician Order [id number]. 00TIFF Normal [facility] eGFRon 10-21-2023 eGFR 105 mL/min/1.73 m2 Normal >=59 [facility] Comment on above: Order Comment: Order added by Discern Expert. Performed By: #### 2 [id number], [id number], [id number], [id number] #### [facility] [address] [place] [address] CHEMISTRYOrdered By: SYSTEM SYSTEM on 09-29-2022 Anion [...] rate/Area] mL/min/1.73 m2 Normal >=59mL/min/ 1.73 m2 [facility] Chem S GFR/1.73 sq M.predicted among non-blacks MDRD (S/P/Bld) [Vol rate/Area] mL/min/1.73 m2 Normal >=59mL/min/ 1.73 m2 [facility] Chem S Glucose [Mass/Vol] 107 mg/dL Normal 55 - 199 mg/dL [facility] Potassium [Moles/Vol] 3.8 mmol/L Normal 3.5 - 5.3 mmol/L [facility] Sodium [Moles/Vol] 136 mmol/L Normal 135 - 145 mmol/L [facility] Urea nitrogen [Mass/Vol] 17 mg/dL Normal 5 - 21 mg/dL [facility] Urea nitrogen/Creatinine [Mass ratio] 24 mg/mg High 10 - 20 [facility] - Chemistry and C hemistry - challengeOrdered By: SYSTEM SYSTEM on 09-29-2022 CO2 [Moles/Vol] 28 mmol/L Normal 21 - 31 mmol/L [facility] Laboratory - Hematology and Cell countsOrdered By: Leonid Leiva on 09-29-2022 HbA1c (Bld) [Mass fraction] 5.8 % Normal <=5.9% [facility] ChemAutoSS No Panel Informationon 09-29 11 {mEq/L} Normal 6-16 [facility] Center[facility] 600 DO Work Phone: 101 mmol/L Normal 101-111 [facility] DO Work Phone: [phone] 3.8 mmol/L Normal 3.5-5.3 [facility] DO Work Phone: [phone] 136 mmol/L Normal 135-145 [facility] DO Work Phone: [phone] 8.9 mg/dL Normal 8.9-11.1 [facility] Bean [facility] Work Phone: 24 {No_Units} above high threshold 10-20 [facility] DO Work Phone: 0.7 mg/dL Normal 0.5-1.3 [facility] DO Work Phone: 17 mg/dL Normal 5-21 [facility] Center[facility] 600 DO Work Phone: 107 mg/dL Normal 55-199 [facility] DO Work Phone: Comment on above: If this glucose resu lt represents a fasting glucose, interpretation should refer to the following reference range: 55-99 mg/dL >60 Normal >=59 [facility] Bean [facility] Work Phone: Comment on above: eGFR is race adjuste d. AA=. Chronic kidney disea se could be indicated at eGFR's of less than 60 mL/min/1.73m2. Kidney failure is indicated at less than 15 mL/min/1.73m2. Falls Screening (Age 18+)on 09-28-2022 Fall risk assessment a) No falls within the last year [facility] [employer] 600 DO Work Phone: [phone] Office Visit (Cardiology)on 09-28-2022 Follow-up visit Diagnoses/Problems Assessed Essential hypertension (401.9) (I10) Morbid obesity with BMI of 40.0-44.9, adult (278.01,V85.41) (E66.01,Z68.41) Orders Essential hypertension, Hyperlipidemia, Morbid obesity with BMI of 40.0-44.9, adult, Screening for diabetes mellitus Hemoglobin A1C; Status:Active - Retrospective Authorization; Requested for:28Sep2022; Essential hypertension, Non-ischemic cardiomyopathy Basic Metabolic Panel; Status:Active - Retrospective Authorization; Requested for:28Sep2022; Hyperlipidemia, Screening for diabetes mellitus Glucose, Fasting; Status:Active - Retrospective Authorization; Requested for:28Sep2022; Chief Complaint PHU LOPEZ is being seen [...] DAILY. Multi-Vitamin Oral TabletTAKE 1 TABLET DAILY. [place]-3 [place] DIRECTED. 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 He reports no symptoms of dyspnea or [...] very compliant Delores Ac MD, [facility] Surgical History Problems History of [...] DAILY. Multi-Vitamin Oral TabletTAKE 1 TABLET DAILY. [place]-3 CAP[place] DIRECTED. PARoxetine HCl - 20 MG [...] Recorded: 10Sep2022 10:02AM Heart Rate88, L Radial Tnmjayyq722, RUE, Sitting Saljlnuvz04, RUE, Sitting Height5 ft 10 in Qfqsyp350 lb BMI Lnqgkuqkut55.32 kg/m2 BSA Calculated2.44 Tobacco Useb) No PHQ-2 #1. Over the last 2 weeks have you felt down, depressed or hopeless? (If yes, answer PHQ-9 below)No PHQ-2 #2. Over the last 2 weeks have you felt little i (more content not included)... Normal [employer] Tobacco Screening.on 023 Adult depression screening assessment No [facility] [employer] 600 DO Work Phone: Fall risk assessment a) No falls within the last year [facility] 600 DO Work Phone: Tobacco use status CP b) No [facility] 600 DO Work Phone: Chay 04-27-2022 L -- ---- Specimen: [id number] Received: 04/27/22 Status: HALLIE Medleylen Num: [id number] Spec Type: Surgical Subm Dr: Luiz Morrison MD Tissues: A Prostate - Tur (PROSTATE TURP) Procedures: HE Stain/8, Gross/Micro L4 ---- Age/ Patient Sex Location Account Attending Physician ---- Phu Lopez 67/M [place] [id number] Luiz Morrison MD ---- SPEC NUM: [id number] RECD: 04/27/22 STATUS: HALLIE MEDLEYLen NUM: [id number] CHAIM: 04/27/22 [facility] DR: Luiz Morrison MD ENTERED: 04/27/[address]: SPEC TYPE: Surgical DEPT: S ORDERED: HE Stain/8, Gross/Micro L4 ORDERED: HE Stain/8, Gross/Micro L4 Supplemental Report Addendum 1 Entered: 05/03/22 PIN cocktail immunohistochemical study has been performed on block A1. No definite evidence of malignancy identified on the area of concern. [id number] Addendum Signed (signature on file) Landon Perez [...] result will follow supplement report. ---- Specimen: [id number] Received: 04/27/22-1207 Status: HALLIE Solitario Num: [id number] Spec Type: Surgical Subm Dr: Luiz Morrison MD Tissues: A Prostate - Tur (PROSTATE TURP) Procedures: HE Stain/8, Gross/Micro L4 ---- Patient: Phu Lopez [id number] (Continued) ---- Specimen: [id number] Received: 04/27/22 (Continued) Signed (signature on file) Casa Desai MD (Michelle) 04/30/22 1044 ---- Specimen: [id number] Received: 04/27/22 Status: HALLIE Solitario Num: [id number] Spec Type: Surgical Subm Dr: Luiz Morrison MD Tissues: A Prostate - Tur (PROSTATE TURP) Procedures: LISSETH Tavares/Denver Gross/Nicanor L4 ---- Patient: Phu Lopez [id number] (Continued) ---- Specimen: [id number] Received: 04/27/22 (Continued) Clinical Information BPH with obstruction Gross Description Received in formalin labeled with the patient's name, number and prostate is a 12 g, 6.5 x 5.0 x 2.5 cm aggregate of mooney-campuzano rubbery tissue fragments.. Entirely submitted in nine cassettes labeled A1-A9. Microscopic Description Nine glass slides with H E stained material have been examined. Pathologist interpretation was performed at [facility]. The microscopic findings support the above pathologic diagnosis. CPT Codes 57488 ---- ---- Specimen: [id number] Received: 04/27/22 Status: HALLIE Medleylen Num: [id number] Spec Type: Surgical Subm Dr: Luiz Morrison MD Tissues: A Prostate - Tur (PROSTATE TURP) Procedures: LISSETH Stain/8, Gross/Micro L4 ---- Patient: Phu Lopez [id number] (Continued) ---- Signed (signature on file) Casa Desai MD (Michelle) 04/30/22 1044 Normal [facility] SARS-CoV-2 (COVID-19) RNA MARY+probe Ql (Unsp spec) Negative Normal Negative [facility] Comment on above: Order Comment: Healt hcare Worker?: N Result Comment: Testing for SARS-CoV-2 by RT-PCR This test was developed and its performance characteristics determined by [employer] ([employer]) and validated at the [facility]. This test has not been FDA [...] is terminated or revoked sooner. PERFORMED BY: [address] [place] [address] PATHOLOGIST HIGH SCHOOL AGRICULTURE TEACHER TOI BOWER M.D. Performed By: #### C OVID 19 [facility] #### [address] COVID-19 Positive/NegativeOr dered By: Luiz Morrison on 04-23-2022 SARS-CoV-2 (COVID-19) N gene MARY+probe Ql (Resp) Negative Negative [facility] Comment on above: Testing for SARS-CoV -2 by RT-PCR This test was developed and its performance characteristics determined by [employer] ([employer]) and validated at the [facility]. This test has not been FDA [...] aPTT Coag (PPP) [Time] 29.4 s 25.1-36.5 [facility] Basic Metabolic Panelon Anion gap [Moles/Vol] 13.0 mmol/L Normal 6.0-15.0 [facility] Comment on above: Performed By: #### P T, PTT, CBC, BMP #### [facility] [address] [place] [address] Calcium [Mass/Vol] 9.4 mg/dL Normal 8.2-10.2 [facility] Comment on above: Result Comment: PERF ORMED BY: [place] [id number] PATHOLOGIST [employer]IGH [employer]IC[employer]URE TEACHER TOI BOWER M.D. Performed By: #### P T, PTT, CBC, BMP #### [address] Chloride [Moles/Vol] 100 mmol/L Normal 95-114 [facility] Comment on above: Performed By: #### P T, PTT, CBC, BMP #### [facility] [address] CO2 [Moles/Vol] 26.6 mmol/L Normal 22.0-30.0 [facility] Comment on above: Performed By: #### P T, PTT, CBC, BMP #### [facility] [address] Creatinine [Mass/Vol] 0.60 mg/dL Low 0.64-1.27 [facility] Comment on above: Performed By: #### P T, PTT, CBC, BMP #### [facility] [address] Estimated GFR ( Pilar > 60 [facility] Comment on above: Result Comment: GFR estimated reference range: According to KDOQI guidelines, <60 ml/min/1.73m2 is sufficient to diagnose a patient with chronic kidney disease. Performed By: #### P T, PTT, CBC, BMP #### [facility] [address] Estimated GFR (Non- Am > 60 [facility] Comment on above: Performed By: #### P T, PTT, CBC, BMP #### [facility] [address] Glucose [Mass/Vol] 112 mg/dL High 70-100 [facility] Comment on above: Result Comment: [place] Glucose Reference Range is dependent on time and content of last meal. Glucose of more than 200 mg/dL in a nonstressed, ambulatory subject supports the diagnosis of Diabetes Mellitus. ADA recommended reference range Performed By: #### P T, PTT, CBC, BMP #### [facility] [address] Potassium [Moles/Vol] 3.6 mmol/L Normal 3.5-5.1 [facility] Comment on above: Performed By: #### P T, PTT, CBC, BMP #### [facility] [address] Sodium [Moles/Vol] 136 mmol/L Normal 136-146 [facility] Comment on above: Performed By: #### P T, PTT, CBC, BMP #### [facility] [address] Urea nitrogen [Mass/Vol] 7 mg/dL Low 9-23 [facility] Comment on above: Performed By: #### P T, PTT, CBC, BMP #### [facility] [address] Basophils Auto (Bld) [#/Vol] Ordered By: Luiz Morrison on 04-13-2022 Basophils (Bld) [#/Vol] 0.0 10*3/uL 0.0-0.2 [facility] Basophils/100 WBC Auto (Bld) Ordered By: Luiz Morrison on 04-13-2022 Basophils/100 WBC (Bld) 0.5 % . [facility] Blood hemoglobin measurement (mass/volume)Ordered By: Luiz Morrison on 04-13-2022 Hemoglobin (Bld) [Mass/Vol] 14.4 g/dL 13.0-17.0 [facility] Blood leukocytes automated c ount (number/volume)Ordered By: Luiz Morrison on 04-13-2022 WBC (Bld) [#/Vol] 7.0 10*3/uL 4.5-11.0 [facility] Complete Blood Count Auto Di ffon 04-13-2022 Basophils (Bld) [#/Vol] 0.0 10*3/uL Normal 0.0-0.2 [facility] Comment on above: Result Comment: PERF ORMED BY: [place] [id number] PATHOLOGIST [employer]IC[employer] TE[employer]ER TOI BOWER M.D. Performed By: #### P T, PTT, CBC, BMP #### [facility] [address] Basophils/100 WBC (Bld) 0.5 % Normal . [facility] Comment on above: Performed By: #### P T, PTT, CBC, BMP #### [facility] [address] Eosinophils (Bld) [#/Vol] 0.2 10*3/uL Normal 0.0-0.45 [facility] Comment on above: Performed By: #### P T, PTT, CBC, BMP #### [address] Eosinophils/100 WBC (Bld) 2.4 % Normal . [facility] Comment on above: Performed By: #### P T, PTT, CBC, BMP #### [address] Erythrocyte distribution width (RBC) [Ratio] 13.3 % Normal 12.0-14.8 [facility] Comment on above: Performed By: #### P T, PTT, CBC, BMP #### [address] Hematocrit (Bld) [Volume fraction] 42.6 % Normal 38.8-50.0 [facility] Comment on above: Performed By: #### P T, PTT, CBC, BMP #### [address] Hemoglobin (Bld) [Mass/Vol] 14.4 g/dL Normal 13.0-17.0 [facility] Comment on above: Performed By: #### P T, PTT, CBC, BMP #### [address] Lymphocytes (Bld) [#/Vol] 1.2 10*3/uL Normal 1.00-4.8 [facility] Comment on above: Performed By: #### P T, PTT, CBC, BMP #### [place] [address] [place] Lymphocytes/100 WBC (Bld) 17.7 % Normal . [facility] Comment on above: Performed By: #### P T, PTT, CBC, BMP #### [address] MCH (RBC) [Entitic mass] 30.6 pg Normal 27.5-35.2 [facility] Comment on above: Performed By: #### P T, PTT, CBC, BMP #### [facility] [address] [place] [address] MCV (RBC) [Entitic vol] 90.7 fL Normal 83.5-101 [facility] Comment on above: Performed By: #### P T, PTT, CBC, BMP #### [address] Mean Corpuscular HGB Conc 33.8 g/dL Normal 32.5-35.6 [facility] Comment on above: Performed By: #### P T, PTT, CBC, BMP #### [address] Monocytes (Bld) [#/Vol] 0.7 10*3/uL Normal 0.0-0.8 [facility] Comment on above: Performed By: #### P T, PTT, CBC, BMP #### [address] Monocytes/100 WBC (Bld) 9.7 % Normal . [facility] Comment on above: Performed By: #### P T, PTT, CBC, BMP #### [address] Neutrophils (Bld) [#/Vol] 4.9 10*3/uL Normal 1.8-7.7 [facility] Comment on above: Performed By: #### P T, PTT, CBC, BMP #### [address] Neutrophils/100 WBC (Bld) 69.7 % Normal . [facility] Comment on above: Performed By: #### P T, PTT, CBC, BMP #### [address] Nucleated RBC/100 WBC (Bld) [Ratio] 0.0 % Normal 0-0.5 [facility] Comment on above: Performed By: #### P T, PTT, CBC, BMP #### [address] Platelet mean volume (Bld) [Entitic vol] 9.2 fL Normal 6.6-10.1 [facility] Comment on above: Performed By: #### P T, PTT, CBC, BMP #### [facility] [address] Platelets (Bld) [#/Vol] 265 10*3/uL Normal 150-450 [facility] Comment on above: Performed By: #### P T, PTT, CBC, BMP #### [facility] [address] RBC (Bld) [#/Vol] 4.70 10*6/uL Normal 3.90-5.60 [facility] Comment on above: Performed By: #### P T, PTT, CBC, BMP #### [facility] [address] WBC (Bld) [#/Vol] 7.0 10*3/uL Normal 4.5-11.0 [facility] Comment on above: Performed By: #### P T, PTT, CBC, BMP #### [address] Creatinine and Glomerular fi ltration rate.predicted panel (S/P/Bld)Ordered By: Luiz Morrison on 04-13-2022 Creatinine [Mass/Vol] 0.60 mg/dL 0.64-1.27 [facility] ECG 12 lead ECGon 04-13-2022 ECG 12 lead ECG [facility] [place] [address] [place] [address] Electrocardiograph Report Signed Patient: Phu Lopez MR#: [id number] : 1955 Acct:[id number] Age/Sex: 67 / M ADM Date: 04/13/22 Loc: PS Room: Type: [facility] Attending Dr: Luiz Morrison MD [...] By Roxie Gusman MD 1431 Normal [facility] Eosinophils Auto (Bld) [#/Vo l]Ordered By: Luiz Morrison on 04-13-2022 Eosinophils (Bld) [#/Vol] 0.2 10*3/uL 0.0-0.45 [facility] Eosinophils/100 WBC Auto (Bl d)Ordered By: Luiz Morrison on 04-13-2022 Eosinophils/100 WBC (Bld) 2.4 % . [facility] Erythrocyte distribution wid th Auto (RBC) [Ratio]Ordered By: Luiz Morrison on 04-13-2022 Erythrocyte distribution width (RBC) [Ratio] 13.3 % 12.0-14.8 [facility] Estimated glomerular filtrat ion rate (GFR) non- AmericanOrdered By: Luiz Morrison on 04-13-2022 GFR/1.73 sq M.predicted among non-blacks MDRD (S/P/Bld) [Vol rate/Area] > 60 mL/Min [facility] Hematocrit Auto (Bld) [Volum e fraction]Ordered By: Luiz Morrison on 04-13-2022 Hematocrit (Bld) [Volume fraction] 42.6 % 38.8-50.0 [facility] Laboratory - CoagulationOrde red By: Luiz Morrison on 04-13-2022 PT Coag (PPP) [Time] 10.8 s 9.0-12.9 [facility] - Hematology and Cell countsOrdered By: Luiz Morrison on 04-13-2022 Nucleated RBC/100 WBC (Bld) [Ratio] 0.0 % 0-0.5 [facility] Lymphocytes Auto (Bld) [#/Vo l]Ordered By: Luiz Morrison on 04-13-2022 Lymphocytes (Bld) [#/Vol] 1.2 10*3/uL 1.00-4.8 [facility] Lymphocytes/100 WBC Auto (Bl d)Ordered By: Luiz Morrison on 04-13-2022 Lymphocytes/100 WBC (Bld) 17.7 % . [facility] MCH Auto (RBC) [Entitic mass ]Ordered By: Luiz Morrison on 04-13-2022 MCH (RBC) [Entitic mass] 30.6 pg 27.5-35.2 [facility] MCHC Auto (RBC) [Mass/Vol]Or dered By: Luiz Morrison on 04-13-2022 MCHC (RBC) [Mass/Vol] 33.8 g/dL 32.5-35.6 [facility] MCV Auto (RBC) [Entitic vol] Ordered By: Luiz Morrison on 04-13-2022 MCV (RBC) [Entitic vol] 90.7 fL 83.5-101 [facility] Monocytes Auto (Bld) [#/Vol] Ordered By: Luiz Morrison on 04-13-2022 Monocytes (Bld) [#/Vol] 0.7 10*3/uL 0.0-0.8 [facility] Monocytes/100 WBC Auto (Bld) Ordered By: Luiz Morrison on 04-13-2022 Monocytes/100 WBC (Bld) 9.7 % . [facility] Neutrophils Auto (Bld) [#/Vo l]Ordered By: Luiz Morrison on 04-13-2022 Neutrophils (Bld) [#/Vol] 4.9 10*3/uL 1.8-7.7 [facility] Neutrophils/100 WBC Auto (Bl d)Ordered By: Luiz Morrison on 04-13-2022 Neutrophils/100 WBC (Bld) 69.7 % . [facility] No Panel InformationOrdered By: Luiz Morrison on 04-13-2022 Estimated GFR () > 60 mL/Min [facility] Comment on above: GFR estimated refere nce range: According to KDOQI guidelines, <60 ml/min/1.73m2 is sufficient to diagnose a patient with chronic kidney disease. Pharmacy Creatinine Clearance (Chem N/A [facility] Partial Thromboplastin Timeo n 04-13-2022 aPTT Coag (Bld) [Time] 29.4 s Normal 25.1-36.5 [facility] Comment on above: Result Comment: PERF ORMED BY: [place] [id number] PATHOLOGIST [employer] TE[employer]ER TOI BOWER M.D. Performed By: #### P T, PTT, CBC, BMP #### [address] Platelet mean volume Auto (B ld) [Entitic vol]Ordered By: Luiz Morrison on 04-13-2022 Platelet mean volume (Bld) [Entitic vol] 9.2 fL 6.6-10.1 [facility] Platelet poor plasma interna tional normalized ratio (INR) by coagulation assay (relatOrdered By: Luiz Morrison on 04-13-2022 INR Coag (PPP) [Relative time] 1.0 {INR} [facility] Comment on above: INR Therapeutic Rang [...] Platelets (Bld) [#/Vol] 265 10*3/uL 150-450 [facility] Prothrombin Time INRon 04-13 INR Coag (PPP) [Relative time] 1.0 {INR} Normal [facility] Comment on above: Result Comment: INR [...] #### P T, PTT, CBC, BMP #### [facility] [address] PT Coag (PPP) [Time] 10.8 s Normal 9.0-12.9 [facility] Comment on above: Performed By: #### P T, PTT, CBC, BMP #### [facility] [address] RBC Auto (Bld) [#/Vol]Ordere d By: Luiz Morrison on 04-13-2022 RBC (Bld) [#/Vol] 4.70 10*6/uL 3.90-5.60 [facility] Serum or plasma anion gap de terminationOrdered By: Luiz Morrison on 04-13-2022 Anion gap [Moles/Vol] 13.0 mmol/L 6.0-15.0 [facility] Serum or plasma calcium anne urement (mass/volume)Ordered By: Luiz Morrison on 04-13-2022 Calcium [Mass/Vol] 9.4 mg/dL 8.2-10.2 [facility] Serum or plasma chloride neo surement (moles/volume)Ordered By: Luiz Morrison on 04-13-2022 Chloride [Moles/Vol] 100 mmol/L 95-114 [facility] Serum or plasma glucose anne urement (mass/volume)Ordered By: Luiz Morrison on 04-13-2022 Glucose [Mass/Vol] 112 mg/dL 70-100 [facility] Comment on above: ADA recommended refe rence range Random Glucose Reference Range is dependent on time and content of last meal. Glucose of more than 200 mg/dL in a nonstressed, ambulatory subject supports the diagnosis of Diabetes Mellitus. Serum or plasma potassium me asurement (moles/volume)Ordered By: Luiz Morrison on 04-13-2022 Potassium [Moles/Vol] 3.6 mmol/L 3.5-5.1 [facility] Serum or plasma sodium measu rement (moles/volume)Ordered By: Luiz Morrison on 04-13-2022 Sodium [Moles/Vol] 136 mmol/L 136-146 [facility] Serum or plasma total carbon dioxide measurement (moles/volume)Ordered By: Luiz Morrison on 04-13-2022 CO2 [Moles/Vol] 26.6 mmol/L 22.0-30.0 [facility] Serum or plasma urea nitroge n measurement (mass/volume)Ordered By: Luiz Morrison on 04-13-2022 Urea nitrogen [Mass/Vol] 7 mg/dL 04-30 [facility] CHEMISTRYOrdered By: Gabriel rendon on 04-01-2022 HbA1c (Bld) [Mass fraction] 5.3 % Normal <=5.9% [facility] ChemAutoSS Creatinine (Bld) [Mass/Vol]O rdered By: Luiz Morrison on 01-21-2022 Creatinine [Mass/Vol] 0.8 mg/dL 0.6-1.3 [facility] Comment on above: ER/ESD physician is notified/shown all ISTAT results. Critical values may be confirmed by laboratory testing if deemed necessary by ER attending doctor. No Panel InformationOrdered By: Luiz Morrison on 01-21-2022 POC Estimated GFR > 60 [facility] Comment on above: GFR estimated refere nce range: According to KDOQI guidelines, <60 ml/min/1.73m2 is sufficient to diagnose a patient with chronic kidney disease. POC Estimated GFR Non- Amer > 60 [facility] CHEMISTRYOrdered By: [employer] on 12-22-2021 Free PSA [Mass/Vol] 0.7 [...] rate/Area] mL/min/1.73 m2 Normal >=59mL/min/ 1.73 m2 [facility] Chem S GFR/1.73 sq M.predicted among non-blacks MDRD (S/P/Bld) [Vol rate/Area] mL/min/1.73 m2 Normal >=59mL/min/ 1.73 m2 [facility] Chem S Globulin (S) [Mass/Vol] 3.8 g/dL [...] ratio] 17 mg/mg Normal 10 - 20 [facility] Remisol HEMATOLOGYOrdered By: Stephanie jamison on 12-10-2021 Erythrocyte distribution width (RBC) [Ratio] 13.4 % Normal 10.9 - 14.2 % [facility] HemeAutoSS Hematocrit (Bld) [Volume fraction] 39.2 % Normal 37.7 - 49.0 % FT HemeAutoSS Hemoglobin (Bld) [Mass/Vol] 13.5 g/dL Normal 13.5 - 17.5 gm/dL FT HemeAutoSS MCH (RBC) [Entitic mass] 30.8 pg Normal 27.0 - 34.0 pg [facility] HemeAutoSS MCHC (RBC) [Mass/Vol] 34.6 g/dL Normal 31.4 - 36.0 gm/dL [facility] HemeAutoSS MCV (RBC) [Entitic vol] 89.0 fL Normal 80.0 - 100.0 fL FT HemeAutoSS Platelet mean volume (Bld) [Entitic vol] 8.6 fL Normal 6.4 - 10.8 fL [facility] HemeAutoSS Platelets (Bld) [#/Vol] 270.0 E9/L Normal 150. 0 - 500.0 E9/L FT HemeAutoSS RBC (Bld) [#/Vol] 4.4 E12/L Normal 4.3 - 5.9 E12/L [facility] HemeAutoSS WBC corrected for nucl RBC Auto (Bld) [#/Vol] 8.4 E9/L Normal 4.0 - 11.0 E9/L [facility] HemeAutoSS CHEMISTRYOrdered By: SYSTEM SYSTEM on 11-19-2021 Creatinine [Mass/Vol] 0.7 mg/dL Normal 0.5 - 1.3 mg/dL [facility] Remisol GFR/1.73 sq M.predicted among blacks MDRD (S/P/Bld) [Vol rate/Area] mL/min/1.73 m2 Normal >=59mL/min/ 1.73 m2 [facility] Chem S GFR/1.73 sq M.predicted among non-blacks MDRD (S/P/Bld) [Vol rate/Area] mL/min/1.73 m2 Normal >=59mL/min/ 1.73 m2 [facility] Chem S Tobacco Screening.on 022 Fall risk assessment a) No falls within the last year [facility] k 600 DO Work Phone: Tobacco use status [facility] b) No M [facility] k 600 DO Work Phone: CORONAVIRUS 2019 BY PCRon SARS-CoV-2 (COVID-19) RNA MARY+probe Ql (Unsp spec) Not detected Normal Not Detected [facility] Comment on above: Result Comment: [...] this test method. Fact sheet for providers: https://www.fda.gov/media/817390/download Fact sheet for patients: https://www.fda.gov/media/767595/download This test has received FDA Emergency Use Authorization [EUA] and has been verified by [facility] ([facility]). This test is only authorized for the duration of time that circumstances exist to justify the authorization of the emergency use of in vitro diagnostic tests for the detection of SARS-CoV-2 virus and/or diagnosis of COVID-19 infection under section 564(b)(1) of the Act, 21 U.S.C. 360bbb-3(b)(1), unless the authorization is terminated or revoked sooner. [facility] is certified under CLIA-88 as qualified to perform high complexity testing. Testing is performed in the [facility] laboratories located at [address] [place] [address]. Performed By: #### C OV19 #### [address] [place] [address] Covid 19 Resultson SARS-CoV-2 (COVID-19) RNA MARY+probe [...] [facility] to see if any of your [...] or Naproxen (Aleve) can also be used. Bkxt-zoy-anfxqyw cough and cold medicines can be used according to the instructions on the package. Some xvuw-ofp-uljqqlv medicines also contain acetaminophen. 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 Avoid touching your eyes, nose, and mouth [...] 24 matias (more content not included)... Normal [facility] CORONAVIRUS 2019 BY PCRon DATE OF SYMPTOM ONSET [YYYYMMDD]? [id number] [facility] Comment on above: Performed By: #### C OV19 #### [facility] [address] [place] [address] Lab Specimen Source Nasal, Nasopharyngeal [facility] Comment on above: Performed By: #### C OV19 #### [facility] [address] [place] [address] Provider Note - ED v2on Provider Note [...] SIGNS: T PRBP SpO2O2(LPM) %FiO2 Method 10-Mar-2021 13:09:[id number] PHYSICAL EXAM CONSTITUTIONAL: Appearance: well appearing [...] with instruction (more content not included)... Normal [facility] CORONAVIRUS 2019 BY PCRon SARS-CoV-2 (COVID-19) RNA MARY+probe Ql (Unsp spec) Not detected Normal Not Detected [facility] Comment on above: Result Comment: [...] patient management decisions. Fact sheet for providers: https://www.fda.gov/media/178177/download Fact sheet for patients: https://www.fda.gov/media/983718/download This test has received FDA Emergency Use Authorization (EUA) and has been verified by [facility] ([facility]). This test is only authorized for the duration of time that circumstances exist to justify the authorization of the emergency use of in vitro diagnostic tests for the detection of SARS-CoV-2 virus and/or diagnosis of COVID-19 infection under section 564(b)(1) of the Act, 21 U.S.C. 360bbb-3(b)(1), unless the authorization is terminated or revoked sooner. [facility] is certified under CLIA-88 as qualified to perform high complexity testing. Testing is performed in the [facility] laboratories located at [address] [place] [address]. Performed By: #### C OV19 #### [facility] [id number] [place] [address]. [place] [address] Covid 19 Resultson 1 SARS-CoV-2 (COVID-19) RNA [...] [facility] to see if any of [...] or Naproxen (Aleve) can also be used. Cwur-zgx-lmrbhwd cough and cold medicines can be used according to the instructions on the package. Some iwqb-zqb-sfgyybt medicines also contain acetaminophen. 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 Avoid touching your eyes, nose, and mouth [...] like ibuprofen (Motrin) (more content not included)... [facility] CORONAVIRUS 2019 BY PCRon DATE OF SYMPTOM ONSET [YYYYMMDD]? [id number] [facility] Comment on above: Performed By: #### C OV19 #### [facility] [address] [place] [address] Lab Specimen Source Nasal, Nasopharyngeal [facility] Comment on above: Performed By: #### C OV19 #### [facility] [address] [place] [address] Provider Note - ED v2on Provider Note [...] and symptoms. Symptoms have been refractory to jahz-hvu-brwfvnk medications.. Triage Information: Most recent Vital Sign [...] Electronic Signatures for Addendum Section: Emile Michelle (BARBARA) (Signed Addendum 12-Sep-2020 09:08) covid (-). called pt with results. Electronic Signatures: Emile Michelle (PAC) (Signed 12-Sep-2020 09:08) Authored: HPI, PMH, ROS, PE, MDM/ED Course, Clinical Impression, Attestation, Chart Review, Scores Last Updated: 12-Sep-2020 09:08 by Emile Michelle (BARBARA) [facility] Provider Note - ED v2on 06-10 [...] SIGNS: T PRBP SpO2O2(LPM) %FiO2 Method 07-Jul-2020 13:05:[id number]/ [id number] 97 PHYSICAL EXAM CONSTITUTIONAL: Appearance: well [...] on exam a (more content not included)... [facility] URINE CULTURE,BACTERIALon URINE CULTURE,BACTERIAL PATIENT: SYED LOPEZ LOCATION: [facility]#: [id number] : 57 AGE: SEX: M ORDERED BY: CHRISS MARIE SOURCE: URINE COLLECTED: 07/07/20 14:07 ANTIBIOTICS AT CHAIM.: RECEIVED : 07/07/20 19:19 SITE: [facility] URINE CULTURE,BACTERIAL FINAL 07/08/20 12:57 NO SIGNIFICANT GROWTH. [facility] Comment on above: Performed By: #### U [facility] #### [facility] [address] [place] [address] OCT MACULA CIRRUS OU (BOTH E YES) [facility] Vital Signs Date Time Vital Sign Value Performing Clinician Facility 06-20-2024 12:58-0500 Diastolic blood pressure 70 mm[Hg] Luiz MORRISON [facility] 06-20-2024 12:58-0500 Mean blood pressure 93 mm[Hg] Luiz MORRISON [facility] 06-20-2024 12:58-0500 Systolic blood pressure 138 mm[Hg] Luiz MORRISON [facility] 06-20-2024 12:51-0500 Blood Pressure Location Luiz MORRISON [facility] 06-20-2024 12:51-0500 Diastolic blood pressure 80 mm[Hg] Luiz MORRISON [facility] 06-20-2024 12:51-0500 Heart rate 78 /min Luizcaitie MORRISON [facility] 06-20-2024 12:51-0500 Respiratory rate 16 /min Luiz MORRISON [facility] 06-20-2024 12:51-0500 Systolic blood pressure 150 mm[Hg] Luiz MORRISON [facility] 06-04-2024 07:58-0400 Body height 177.8 cm Adam Soriano DPM FACFAS Work Phone: [facility] 06-04-2024 07:58-0400 Body mass index (BMI) [Ratio] 42.62 kg/m2 Adam Soriano DPM FACFAS Work Phone: [facility] 06-04-2024 07:58-0400 Body weight 134.72 kg Adam Hookerce DPM FACFAS Work Phone: [facility] 06-04-2024 07:58-0400 Diastolic blood pressure 71 mm[Hg] Adam Soriano DPM FACFAS Work Phone: [facility] 06-04-2024 07:58-0400 Heart rate 74 /min Adam Soriano DPM FACFAS Work Phone: [facility] 06-04-2024 07:58-0400 Systolic blood pressure 132 mm[Hg] Adam Soriano DPM FACFAS Work Phone: [facility] 05-10-2024 09:24-0400 Body height 177.8 cm Liliana Waller MD Work Phone: [facility] 05-10-2024 09:24-0400 Body mass index (BMI) [Ratio] 42.62 kg/m2 Liliana Waller MD Work Phone: [facility] 05-10-2024 09:24-0400 Body temperature 98.2 [degF] Liliana Waller MD Work Phone: [facility] 05-10-2024 09:24-0400 Body weight 134.72 kg Liliana Waller MD Work Phone: [facility] 05-10-2024 09:24-0400 Diastolic blood pressure 68 mm[Hg] Liliana Waller MD Work Phone: [facility] 05-10-2024 09:24-0400 Heart rate 67 /min Liliana Waller MD Work Phone: [facility] 05-10-2024 09:24-0400 SaO2% (BldA) [Mass fraction] 97 % Liliana Waller MD Work Phone: [facility] 05-10-2024 09:24-0400 Systolic blood pressure 130 mm[Hg] Liliana Waller MD Work Phone: [facility] 05-07-2024 13:42-0400 Body height 177.8 cm [facility] 05-07-2024 13:42-0400 Body mass index (BMI) [Ratio] 41.7 kg/m2 [facility] 05-07-2024 13:42-0400 Body weight 131.99 kg [facility] 05-07-2024 13:42-0400 Diastolic blood pressure 69 mm[Hg] [facility] 05-07-2024 13:42-0400 Heart rate 78 /min [facility] 05-07-2024 13:42-0400 SaO2% (BldA) [Mass fraction] 96 % [facility] 05-07-2024 13:42-0400 Systolic blood pressure 148 mm[Hg] [facility] 03-12-2024 13:59-0400 Body height 177.8 cm [facility] 03-12-2024 13:59-0400 Body mass index (BMI) [Ratio] 40.7 kg/m2 [facility] 03-12-2024 13:59-0400 Body weight 128.82 kg [facility] 03-12-2024 13:59-0400 Diastolic blood pressure 69 mm[Hg] [facility] 03-12-2024 13:59-0400 Heart rate 75 /min [facility] 03-12-2024 13:59-0400 SaO2% (BldA) [Mass fraction] 94 % [facility] 03-12-2024 13:59-0400 Systolic blood pressure 140 mm[Hg] [facility] 09-30-2023 08:46-0500 Body height 177.8 cm Delores Ac MD Work Phone: [facility] 09-30-2023 08:46-0500 Body mass index (BMI) [Ratio] 42.04 kg/m2 Delores Ac MD Work Phone: [facility] 09-30-2023 08:46-0500 Body weight 132.9 kg Delores Ac MD Work Phone: [facility] 09-30-2023 08:46-0500 Diastolic blood pressure 60 mm[Hg] Delores Ac MD Work Phone: [facility] 09-30-2023 08:46-0500 Heart rate 76 /min Delores Ac MD Work Phone: [facility] 09-30-2023 08:46-0500 Systolic blood pressure 138 mm[Hg] Delores Ac MD Work Phone: [facility] 06-15-2023 13:25-0500 Diastolic blood pressure 90 mm[Hg] Luiz MORRISON [facility] 06-15-2023 13:25-0500 Mean blood pressure 110 mm[Hg] Luiz MORRISON [facility] 06-15-2023 13:25-0500 Systolic blood pressure 150 mm[Hg] Luiz MORRISON [facility] 06-15-2023 13:20-0500 Blood Pressure Location Luiz MORRISON [facility] 06-15-2023 13:20-0500 Diastolic blood pressure 94 mm[Hg] Luiz MORRISON [facility] 06-15-2023 13:20-0500 Heart rate 83 /min Liuz MORRISON [facility] 06-15-2023 13:20-0500 Systolic blood pressure 150 mm[Hg] Luiz MORRISON [facility] 02-21-2023 13:30-0400 Body height 172.72 cm Burak Rangel Other [employer] Other 02-21-2023 13:30-0400 Body mass index (BMI) [Ratio] 44.55 kg/m2 Burak Rangel Other [employer] Other 02-21-2023 13:30-0400 Body weight 132.9 kg Burak Rangel Other [employer] Other 02-21-2023 13:30-0400 Diastolic blood pressure 71 mm[Hg] Burak Rangel Other [employer] Other 02-21-2023 13:30-0400 SaO2% (BldA) [Mass fraction] 96 % Burak Rangel Other [facility] [employer] Other 02-21-2023 13:30-0400 Systolic blood pressure 167 mm[Hg] Burak Rangel Other [facility] [employer] Other 11-03-2022 15:48-0400 Blood Pressure Location Luiz MORRISON [facility] 11-03-2022 15:48-0400 Diastolic blood pressure 76 mm[Hg] Luiz MORRISON [facility] 11-03-2022 15:48-0400 Heart rate 76 /min Luiz MORRISON [facility] 11-03-2022 15:48-0400 Systolic blood pressure 138 mm[Hg] Luiz MORRISON [facility] 09-28-2022 12:04-0500 Diastolic blood pressure 60 mm[Hg] Terri Allsop Work Phone: [facility] 600 DO Work Phone: 09-28-2022 12:04-0500 Systolic blood pressure 118 mm[Hg] Terri Allsop Work Phone: [facility] 600 DO Work Phone: 09-28-2022 11:58-0500 Diastolic blood pressure 42 mm[Hg] Terri Allsop Work Phone: [facility] 600 DO Work Phone: 09-28-2022 11:58-0500 Systolic blood pressure 118 mm[Hg] Terri Allsop Work Phone: [facility] 600 DO Work Phone: 09-28-2022 11:57-0500 Body height 177.8 cm Terri Allsop Work Phone: [facility] 600 DO Work Phone: 09-28-2022 11:57-0500 Body mass index (BMI) [Ratio] 40.89 kg/m2 Terri Allsop Work Phone: [facility] 600 DO Work Phone: 09-28-2022 11:57-0500 Body surface area Derived from formula 2.43 m2 Terri Allsop Work Phone: [facility] 600 DO Work Phone: 09-28-2022 11:57-0500 Body weight 129.28 kg Terri Allsop Work Phone: [facility] 600 DO Work Phone: 09-28-2022 11:57-0500 Diastolic blood pressure 44 mm[Hg] Terri Allsop Work Phone: [facility] 600 DO Work Phone: 09-28-2022 11:57-0500 Heart rate 80 /min Terri Allsop Work Phone: [facility] 600 DO Work Phone: 09-28-2022 11:57-0500 Systolic blood pressure 120 mm[Hg] Terri Allsop Work Phone: [facility] 600 DO Work Phone: 09-10-2022 10:02-0500 Body height 177.8 cm Terri Allsop Work Phone: [facility] 600 DO Work Phone: 09-10-2022 10:02-0500 Body mass index (BMI) [Ratio] 41.32 kg/m2 Terri Allsop Work Phone: [facility] 600 DO Work Phone: 09-10-2022 10:02-0500 Body surface area Derived from formula 2.44 m2 Terri Powellsop Work Phone: [facility] 600 DO Work Phone: 09-10-2022 10:02-0500 Body weight 130.64 kg Terri Powellsop Work Phone: [facility] 600 DO Work Phone: 09-10-2022 10:02-0500 Diastolic blood pressure 70 mm[Hg] Terri Powellsop Work Phone: [facility] 600 DO Work Phone: 09-10-2022 10:02-0500 Heart rate 88 /min Terri Rmp Work Phone: [facility] 600 DO Work Phone: 09-10-2022 10:02-0500 Systolic blood pressure 162 mm[Hg] Terri Rmp Work Phone: [facility] 600 DO Work Phone: 06-24-2022 13:10-0500 Blood Pressure Location William Oquendocindiandrea [facility] 06-24-2022 13:10-0500 Diastolic blood pressure 87 mm[Hg] William Brush [facility] 06-24-2022 13:10-0500 Heart rate 91 /min William Brush [facility] 06-24-2022 13:10-0500 Respiratory rate 21 /min William Brush [facility] 06-24-2022 13:10-0500 SaO2% (BldA) [Mass fraction] 97 % William Mourany [facility] 06-24-2022 13:10-0500 Systolic blood pressure 152 mm[Hg] William Mourany [facility] 06-24-2022 13:05-0500 Blood Pressure Location William Mourany [facility] 06-24-2022 13:05-0500 Diastolic blood pressure 94 mm[Hg] William Mourany [facility] 06-24-2022 13:05-0500 Heart rate 91 /min William Mourany [facility] 06-24-2022 13:05-0500 Respiratory rate 24 /min William Mourany [facility] 06-24-2022 13:05-0500 SaO2% (BldA) [Mass fraction] 97 % William Mourany [facility] 06-24-2022 13:05-0500 Systolic blood pressure 164 mm[Hg] William Mourany [facility] 06-24-2022 13:00-0500 Heart rate 92 /min William Mourany [facility] 06-24-2022 13:00-0500 Respiratory rate 18 /min William Mourany [facility] 06-24-2022 13:00-0500 SaO2% (BldA) [Mass fraction] 96 % William Mourany [facility] 06-24-2022 13:00-0500 Systolic blood pressure 162 mm[Hg] William Mourany [facility] 06-24-2022 12:40-0500 Body temperature 97.16 [degF] William Hernandezy [facility] 06-24-2022 12:37-0500 Respiratory rate 20 /min William Maryy [facility] 06-24-2022 12:30-0500 Respiratory rate 20 /min William Hernandezy [facility] 06-24-2022 12:25-0500 Respiratory rate 20 /min William Oquendourany [facility] 06-24-2022 11:31-0500 Body temperature 97.16 [degF] William Maryy [facility] 05-12-2022 08:06-0400 Blood Pressure Location Luiz MORRISON [facility] 05-12-2022 08:06-0400 Diastolic blood pressure 80 mm[Hg] Luiz MORRISON [facility] 05-12-2022 08:06-0400 Heart rate 80 /min Luiz MORRISON [facility] 05-12-2022 08:06-0400 Respiratory rate 16 /min Luiz MORRISON [facility] 05-12-2022 08:06-0400 Systolic blood pressure 151 mm[Hg] Luiz MORRISON [facility] 04-28-2022 11:54-0400 Body temperature 99.2 [degF] MD Terri Santos Work Phone: [facility] 04-28-2022 11:54-0400 Diastolic blood pressure 91 mm[Hg] MD Terri Santos Work Phone: [facility] 04-28-2022 11:54-0400 Heart rate 92 /min MD Terri Santos Work Phone: [facility] 04-28-2022 11:54-0400 Respiratory rate 18 /min MD Terri Santos Work Phone: [facility] 04-28-2022 11:54-0400 SaO2% (BldA) [Mass fraction] 92 % MD Terri Santos Work Phone: [facility] 04-28-2022 11:54-0400 Systolic blood pressure 173 mm[Hg] MD Terri Santos Work Phone: [facility] 04-28-2022 05:14-0400 Body weight 126.5 kg MD Terri Santos Work Phone: [facility] 04-27-2022 10:48-0400 Inhaled oxygen flow rate 6 L/min MD Terri Santos Work Phone: [facility] 04-27-2022 09:08-0400 Body height 180.34 cm MD Terri Santos Work Phone: [facility] 04-27-2022 09:08-0400 Body mass index (BMI) [Ratio] 37.6 kg/m2 MD Terri Santos Work Phone: [facility] 04-01-2022 10:10-0400 Blood Pressure Location Leonid [facility] [place] 04-01-2022 10:10-0400 Diastolic blood pressure 69 mm[Hg] Leonid [facility] [place] 04-01-2022 10:10-0400 Heart rate 79 /min Leonid [facility] [place] 04-01-2022 10:10-0400 Respiratory rate 16 /min Leonid [facility] [place] 04-01-2022 10:10-0400 Systolic blood pressure 167 mm[Hg] Leonid [facility] [place] 02-22-2022 14:45-0400 Body height 172.72 cm Burak Rangel Other [employer] Other 02-22-2022 14:45-0400 Body mass index (BMI) [Ratio] 45.08 kg/m2 Burak Claire Other [employer] Other 02-22-2022 14:45-0400 Body temperature 97.5 [degF] Burak Rangel Other [employer] Other 02-22-2022 14:45-0400 Body weight 134.49 kg Burak Rangel Other [employer] Other 02-22-2022 14:45-0400 Diastolic blood pressure 75 mm[Hg] Burka Gayban Other [employer] Other 02-22-2022 14:45-0400 SaO2% (BldA) [Mass fraction] 96 % Burak Rangel Other [employer] Other 02-22-2022 14:45-0400 Systolic blood pressure 148 mm[Hg] Burak Chaban Other [employer] Other 12-22-2021 08:15-0400 Blood Pressure Location Luiz MORRISON [facility] 12-22-2021 08:15-0400 Diastolic blood pressure 71 mm[Hg] Luiz MORRISON [facility] 12-22-2021 08:15-0400 Heart rate 74 /min Luiz MORRISON [facility] 12-22-2021 08:15-0400 Systolic blood pressure 139 mm[Hg] Luiz [facility]ORRISON [facility] 12-11-2021 08:18-0400 Blood Pressure Location William Brush [facility] [place] 12-11-2021 08:18-0400 Diastolic blood pressure 77 mm[Hg] William Brush [facility] [place] 12-11-2021 08:18-0400 Heart rate 77 /min William Trudi [facility] [place] 12-11-2021 08:18-0400 Systolic blood pressure 155 mm[Hg] William Brush [facility] [place] 11-04-2021 10:36-0400 Blood Pressure Location Luiz MORRISON [facility] [place] 11-04-2021 10:36-0400 Diastolic blood pressure 78 mm[Hg] Luiz MORRISON [facility] [place] 11-04-2021 10:36-0400 Heart rate 85 /min Luiz MORRISON [facility] [place] 11-04-2021 10:36-0400 Respiratory rate 16 /min Luiz MORRISON [facility] [place] 11-04-2021 10:36-0400 Systolic blood pressure 144 mm[Hg] Luiz MORRISON [facility] [place] 08-31-2021 15:23-0500 Diastolic blood pressure 60 mm[Hg] Terri Powellsop Work Phone: [facility] 600 DO Work Phone: 08-31-2021 15:23-0500 Systolic blood pressure 130 mm[Hg] Terri Powellsop Work Phone: [facility] 600 DO Work Phone: 08-31-2021 15:08-0500 Body height 177.8 cm Terri Powellsop Work Phone: [facility] 600 DO Work Phone: 08-31-2021 15:08-0500 Body mass index (BMI) [Ratio] 40.89 kg/m2 Terri Powellsop Work Phone: [facility] 600 DO Work Phone: 08-31-2021 15:08-0500 Body surface area Derived from formula 2.43 m2 Terri Powellsop Work Phone: [facility] 600 DO Work Phone: 08-31-2021 15:08-0500 Body weight 129.28 kg Terri Powellsop Work Phone: [facility] [employer] 600 DO Work Phone: 08-31-2021 15:08-0500 Diastolic blood pressure 79 mm[Hg] Terri Allsop Work Phone: [facility] 600 DO Work Phone: 08-31-2021 15:08-0500 Heart rate 75 /min Terri Allsop Work Phone: [facility] 600 DO Work Phone: 08-31-2021 15:08-0500 Systolic blood pressure 144 mm[Hg] Terri Allsop Work Phone: [facility] 600 DO Work Phone: 03-10-2021 15:09-0400 Body height 177.8 cm Terri Allsop Other Phone: [facility] 03-10-2021 15:09-0400 Body temperature 98.42 [degF] Terri Allsop Other Phone: [facility] 03-10-2021 15:09-0400 Diastolic blood pressure 70 mm[Hg] Terri Allsop Other Phone: [facility] 03-10-2021 15:09-0400 Heart rate 82 /min Terri Allsop Other Phone: [facility] 03-10-2021 15:09-0400 SaO2% (BldA) [Mass fraction] 95 % Terri Allsop Other Phone: [facility] 03-10-2021 15:09-0400 Systolic blood pressure 132 mm[Hg] Terri Allsop Other Phone: [facility] Encounters Encounter Date Encounter Type Care Provider Facility Start: 06-20-2024 End: 06-20-2024 ambulatory Luiz MORRISON Facility:[facility] Start: 06-20-2024 End: 06-20-2024 Patient encounter procedure Luiz MORRISON [facility] [place] Start: 06-13-2024 End: 06-13-2024 Paramjit Lopez MA [facility] Comment on above: Primary hypertension (CMS/HCC); Seasonal allergies Start: 06-04-2024 End: 06-04-2024 Bamboo flowsheet Adam D Dolce DPM FACFAS Work Phone: [facility] Start: 06-04-2024 End: 06-04-2024 Bamboo flowsheet Adam D Dolce DPM FACFAS Work Phone: [facility] Start: 06-04-2024 End: 06-04-2024 Patient encounter procedure Adam D Dolce DPM FACFAS Work Phone: [facility] Comment on above: Onychomycosis (Prima ry Dx); Pain in left toe(s); Pain in right toe(s) Start: 06-04-2024 End: 06-04-2024 ambulatory ADAM D DOLCE Not Available Start: 06-01-2024 End: 06-01-2024 ambulatory TERRI SANTOS Facility:[facility] Start: 06-01-2024 End: 06-01-2024 Patient encounter [...] Start: 05-25-2024 End: 05-25-2024 ambulatory Luiz MORRISON Facility:[facility] Start: 05-25-2024 End: 05-25-2024 Patient encounter procedure Luiz MORRISON [facility] Start: 05-10-2024 End: 05-10-2024 Bamwilli Waller MD Work Phone: [facility] Start: 05-10-2024 End: 05-10-2024 Lorenzo Waller MD Work Phone: [facility] Start: 05-10-2024 End: 05-10-2024 Office outpatient visit 25 minutes Liliana Waller MD Work Phone: [facility] Comment on above: Acute deep vein thro mbosis (DVT) of distal vein of right lower extremity (CMS/HCC) (Primary Dx); MCC current use of anticoagulant; Cardiomyopathy, unspecified type (CMS/HCC); PVD (peripheral vascular disease) (CMS/HCC); Essential hypertension (CMS/HCC); BMI 40.0-44.9, adult (CMS/HCC); Morbid obesity (CMS/HCC) Start: 05-10-2024 End: 05-10-2024 ambulatory LILIANA WALLER Not Available Start: 05-07-2024 End: 05-07-[address] [facility] Work Phone: Start: 05-07-2024 End: 05-07-2024 Patient encounter procedure [facility] Work Phone: Start: 04-24-2024 End: 04-24-2024 Telephone encounter Elyssa Adler MD Work Phone: [facility] Start: 04-13-2024 End: 04-13-2024 ambulatory ELYSSA ADLER Not Available Start: 03-26-2024 End: 03-26-2024 ambulatory ADAM D DOLCE Not Available Start: 03-12-2024 End: 03-12-2024 Patient encounter procedure [facility] Work Phone: Start: 01-09-2024 End: 01-09-2024 ambulatory ADAM D DOLCE Not Available Start: 12-01-2023 End: 12-01-2023 ambulatory TERRI D ALLSOP Not Available Start: 11-25-2023 End: 11-25-2023 ambulatory Terri D Allsop Facility:[facility] Start: 11-25-2023 End: 11-25-2023 Patient encounter procedure Terri Pfeiffer Allsop [facility] Start: 11-17-2023 End: 11-17-2023 ambulatory TERRI D ALLSOP Not Available Start: 10-31-2023 End: 10-31-2023 ambulatory ADAM Pfeiffer DOLCE Not Available Start: 10-21-2023 End: 10-21-2023 ambulatory Terri Margarette Allsop Facility:[facility] Start: 10-21-2023 End: 10-21-2023 Patient encounter procedure Terri Pfeiffer Allsop [facility] Start: 09-30-2023 End: 09-30-2023 Office outpatient visit 25 minutes Delores Ac MD Work Phone: [facility] Comment on above: Essential hypertensi on; Non-ischemic cardiomyopathy (CMS/HCC); Hyperlipidemia, unspecified hyperlipidemia type; Obstructive sleep apnea, adult; Morbid obesity with BMI of 40.0-44.9, adult (CMS/HCC) Start: 09-30-2023 End: 09-30-2023 ambulatory [facility] Start: 08-25-2023 End: 08-25-2023 ambulatory TERRI D ALLSOP Not Available Start: 08-22-2023 End: 08-22-2023 ambulatory ADAM Pfeiffer DOLCE Not Available Start: 06-15-2023 End: 06-15-2023 Patient encounter procedure Luiz MORRISON [facility] [place] Start: 04-30-2023 End: 04-30-2023 Patient encounter procedure Luiz MORRISON [facility] Start: 02-21-2023 Office outpatient vi sit [address] [facility] Start: 02-21-2023 End: 02-21-2023 ambulatory Burak Rangel [facility] Work Phone: Start: 02-21-2023 End: 02-21-2023 Patient encounter procedure MD Terri Santos Work Phone: [facility]-Sleep Lab Work Phone: Start: 11-04-2022 Rx Renewal Terri Rm p Work Phone: [facility] 250 DO Work Phone: Start: 11-03-2022 End: 11-03-2022 Patient encounter procedure Luiz MORRISON [facility] [place] Start: 09-29-2022 Chart Update Terri Rm p Work Phone: [facility] 600 DO Work Phone: Start: 09-29-2022 End: 09-29-2022 Patient encounter procedure Delores cA [facility] Start: 09-28-[address] Delores Ac Facility: Start: 09-28-2022 Office outpatient vi sit 10 minutes Terri Santos Work Phone: [facility] 600 DO Work Phone: Start: 09-10-2022 Office outpatient vi sit 25 minutes Terri Powellsop Work Phone: [facility] 600 DO Work Phone: Start: 09-10-2022 Patient encounter procedure Terri Santos Work Phone: [facility] 600 DO Work Phone: Start: 09-10-[address] Terri Santos Facility: Start: 07-02-2022 Rx Renewal Terri Powellso p [facility] Work Phone: Start: 06-24-2022 End: 06-24-2022 Patient encounter procedure William BuenoPrashant Brush [facility] Start: 05-21-2022 End: 05-21-2022 Patient encounter procedure Cici Merida OD Work Phone: Ophthalmology Comment on above: Epiretinal membrane (ERM) of both eyes (Primary Dx); Floppy eyelid syndrome of both eyes; Combined forms of age-related cataract of both eyes; Posterior vitreous detachment of both eyes; Vitreous floaters of both eyes Start: 05-12-2022 End: 05-12-2022 Patient encounter procedure Luiz MORRISON [facility] [place] Start: 05-10-2022 Rx Renewal Terri Powellso p [facility] Work Phone: Start: 04-30-2022 End: 04-30-2022 Patient encounter procedure Luiz MORRISON [facility] [place] Start: 04-27-2022 End: 04-28-2022 ambulatory Luiz Morrison Facility:[facility] Start: 04-27-2022 End: 04-28-2022 Admission to same day surgery center MD Terri Santos Work Phone: [facility] [place] Start: 04-23-2022 End: 04-23-2022 ambulatory Luiz Morrison Facility:[facility] Start: 04-23-2022 End: 04-23-2022 Patient encounter procedure MD Terri Santos Work Phone: [facility] Hbt-Crs-Bpznlqxy Testing Start: 04-13-2022 End: 04-13-2022 ambulatory Luiz Morrison Facility:[facility] Start: 04-13-2022 End: 04-13-2022 Patient encounter procedure MD Terri Santos Work Phone: [facility]Pre-Surgical Testing Start: 04-01-2022 End: 04-01-2022 Lab Drop off Adam Soriano [facility] Start: 04-01-2022 End: 04-01-2022 Patient encounter procedure Leonid WHITEHEAD [facility] [place] Start: 03-26-2022 End: 04-07-2022 Pre-admission assessment Milo Gonzales [facility] Start: 03-17-2022 End: 03-17-2022 Patient encounter procedure Luiz MORRISON [facility] [place] Start: 03-02-2022 End: 03-02-2022 Patient encounter procedure Luiz MORRISON [facility] Start: 02-22-2022 End: 02-22-2022 ambulatory Burak Rangel Other [employer] Other Start: 02-22-2022 Office outpatient vi sit 15 minutes Kamal Claire [facility] Start: 02-22-2022 End: 02-22-2022 Patient encounter procedure MD Terri Santos Work Phone: [facility]-Sleep Lab Start: 01-21-2022 End: 01-21-2022 Patient encounter procedure MD Terri Santos Work Phone: [facility]MRI Main [place] Start: 12-22-2021 End: 12-22-2021 Lab Drop off Luiz MORRISON [facility] Start: 12-22-2021 End: 12-22-2021 Patient encounter procedure Luiz MORRISON [facility] [place] Start: 12-11-2021 End: 02-20-2022 Pre-admission assessment William Brush [facility] Start: 12-11-2021 End: 12-11-2021 Patient encounter procedure William Brush [facility] [place] Start: 12-10-2021 End: 12-10-2021 Patient encounter procedure Belinda VELASQUEZ [facility] Start: 12-08-2021 End: 12-08-2021 Patient encounter procedure Luiz MORRISON [facility] Start: 12-01-2021 End: 12-01-2021 Patient encounter procedure Luiz MORRISON [facility] Start: 11-19-2021 End: 11-19-2021 Patient encounter procedure Luiz MORRISON [facility] Start: 11-04-2021 End: 11-04-2021 Patient encounter procedure Luiz MORRISON [facility] [place] Start: 08-31-2021 Office outpatient vi sit 25 minutes Terri Santos Work Phone: [facility] 600 DO Work Phone: Start: 06-10-2021 Rx Renewal Terri greene Work Phone: [facility] 600 DO Work Phone: Start: 03-10-2021 End: 03-10-2021 Emergency department patient visit Chriss Marie [facility] Start: 04-11-2018 End: 04-11-2018 Emergency department patient visit Danyell [facility] Facility:[facility] Procedures Date Procedure Procedure Detail Performing Clinician Start: 06-01-2024 Fundus photography w/interpretation & report Josselin Decker MD Work Phone: Start: 06-01-2024 Computerized ophthal indy imaging retina Josselin Decker MD Work Phone: Start: 06-24-2022 Colonoscopy Delores whitney MD Work Phone: Start: 06-24-2022 Colonoscopy William Sanju[place] Start: 05-21-2022 Computerized ophthal indy imaging [...] PATRICK Hemorrhoid operation Luiz MORRISON Hemorrhoidectomy Terri Al triny Work Phone: Tonsillectomy Luiz MORRISON Total colonoscopy Terri Feng turnersoramona Work Phone: Plan of Treatment Date Care Activity Detail Author Start: 09-03-2033 DTaP/Tdap/Td Vaccine s (2 - Td or Tdap) DTaP/Tdap/Td Vaccines (2 - Td or Tdap) [facility] Start: 09-03-2033 Urine microalbumin profile DTaP,Tdap,Td Vaccine (2 - Td or Tdap) [facility] Start: 06-24-2032 Screening for malign ant neoplasm of colon [facility] Start: 11-23-2024 End: 11-23-2024 Patient encounter procedure 11/23/2024 2:30 PM EDT Office Visit [facility] [address] [place] [address] Josselin Decker MD [address] [place] [address] oct/erm Ophthalmology Comment on above: oct/erm Start: 11-08-2024 End: 11-08-2024 Patient encounter procedure 11/08/2024 9:00 AM EDT Office Visit [facility] [address] [place] [id number] Liliana Waller MD [address] [place] [address] [facility] Start: 09-25-2024 End: 09-25-2024 Patient encounter procedure 09/25/2024 9:00 AM EST Office [place] [address] [place] [phone] Delores Ac MD [address] [place] [address] [facility] Start: 08-20-2024 End: 08-20-2024 Patient encounter procedure 08/20/2024 8:00 AM EST Procedure Visit [facility] [address] [place] [phone] Adam Soriano, DPM FACFAS [address] [place] [address] [facility] Start: 06-04-2024 End: 06-04-2024 Patient encounter procedure [facility] Comment on above: Arrived Start: 05-10-2024 End: 05-10-2024 Patient encounter procedure [facility] Comment on above: Arrived Start: 04-08-2024 Influenza vaccination Influenza Vacc ine (#1) [facility] Start: 10-29-2023 Zoster Vaccines (2 o f 2) Zoster Vaccines (2 of 2) [facility] Start: 09-30-2023 FUV, Provider: Delores Ac, Status: Pen, Time: 9:00 AM FUV, Provider: Delores Ac, Status: Pen, Time: 9:00 AM [facility] 600 [facility] Work Phone: Start: 08-08-2023 Advance Directive Discussion Advance Directive Discussion [facility] Start: 04-08-2023 COVID-19 Vaccine ( season) COVID-19 Vaccine ( season) [facility] Start: 09-28-2022 NURSEVST, Provider: ISHA TRINIDAD PLUMBING ENGINEERING DRAFTSPERSON 1,[id number], Status: Pen, Time: 11:30 AM NURSEVST, Provider: ISHA TRINIDAD PLUMBING ENGINEERING DRAFTSPERSON 1,[id number], Status: Pen, Time: 11:30 AM [facility] 600 DO Work Phone: Start: 08-31-2022 FUV, Provider: Delores Ac, Status: Pen, Time: 8:40 AM FUV, Provider: Delores Ac, Status: Pen, Time: 8:40 AM [facility] Work Phone: Start: 08-03-2022 Pneumococcal Vaccine : 65+ (2 of 2 - PCV) Pneumococcal Vaccine: 65+ (2 of 2 - PCV) [facility] Start: 08-03-2022 Pneumococcal Vaccine : 65+ Years (2 - PCV) Pneumococcal Vaccine: 65+ Years (2 - PCV) [facility] Start: 04-28-2022 [facility] Work Phone: Start: 04-27-2022 Hospital admission [facility] Work Phone: Start: 04-08-2022 Influenza vaccination INFLUENZA (#1) [facility] Start: 01-21-2022 MR prostate wo/w con MR prostate wo/ w con [facility] Start: 10-05-2021 COVID-19 VACCINE (4 - Booster for Moderna series) COVID-19 VACCINE (4 - Booster for Moderna series) [facility] Start: 08-08-2021 ADVANCE DIRECTIVE DISCUSSION ADVANCE DIRECTIVE DISCUSSION [facility] Start: 08-08-2021 DEPRESSION ASSESSMENT DEPRESSION ASS ESSMENT [facility] Start: 07-10-2021 STACIA, Provider : Delores Ac, Status: Pen, Time: 10:10 AM STACIA, Provider: Delores Ac, Status: Pen, Time: 10:10 AM [facility] 600 DO Work Phone: Start: 01-01-2021 PNEUMOCOCCAL: 65+ (1 - PCV) PNEUMOCOCCAL: 65+ (1 - PCV) [facility] Start: 10-07-2012 Colonoscopy COLONOSCOPY [facility] Start: 10-07-2012 COLORECTAL CANCER SCREENING COLORECTAL CANCER SCREENING [facility] Start: 10-07-2012 Screening for malign ant neoplasm of colon [facility] Start: 01-01-2011 PROSTATE CANCER SCREENING DISCUSSION PROSTATE CANCER SCREENING DISCUSSION [facility] Start: 01-01-2011 Prostate specific antigen measurement Prostate Cancer Screening Discussion [facility] Start: 01-01-2006 SHINGRIX VACCINE (1 of 2) SHINGRIX VACCINE (1 of 2) [facility] Start: 01-01-2001 COLOGUARD (FIT-DNA) COLOGUARD (FIT-D NA) [facility] Start: 01-01-[address] [facility] Start: 01-01-2001 DIABETES SCREEN [facility]ETES [facility]CREEN [facility] Start: 01-01-2001 Diabetes Screening Diabetes Screenin g [facility] Start: 01-01-2001 FECAL OCCULT BLOOD FECAL OCCULT BLOO D [facility] Start: 01-01-2001 Screening for malign ant neoplasm of colon [facility] Start: 01-01-2001 SIG[facility]OSCOPY [facility] Start: 01-01-1991 Lipid panel Lipid Screening [facility] Start: 01-01-1991 LIPID SCREEN LIPID SCREEN [facility] Start: 01-01-1975 Urine microalbumin profile DTAP,TDAP,TD (1 - Tdap) [facility] Start: 01-01-1974 Annual PCP Team [employer] gonzalo Disease Visit Annual PCP Team Chronic Disease Visit [facility] Start: 01-01-1974 BP Controlled (<130/80) BP Controlle d (<130/80) [facility] Start: 01-01-1974 Depression Screening Depression Scre ening [facility] Start: 01-01-1974 Diabetes mellitus screening Diabetes Screening [facility] Start: 01-01-1974 HEPATITIS C SCREENING HEPATITIS C [facility] Start: 01-01-1974 Hepatitis C screening Hepatitis C [facility] Start: 1956 Lipid panel Lipid Panel [facility] Start: 1956 Screening for malign ant neoplasm of colon [facility] Start: 1956 Yearly Adult Physical Yearly Adult P hysical [facility] Patient referral [facility] Work Phone: [facility] Immunizations Immunization Date Immunization Notes Care Provider Fa cility 04-14-2024 influenza virus vacc ine, unspecified formulation Liliana Waller MD Work Phone: [facility] 11-05-2023 zoster vaccine recombinant Luiz MORRISON [facility] 09-03-2023 tetanus toxoid, redu davion diphtheria toxoid, and acellular pertussis vaccine, adsorbed Luiz MORRISON [facility] 09-03-2023 zoster vaccine recombinant Luiz MORRISON [facility] 05-19-2023 influenza virus vacc ine, unspecified formulation Luiz MORRISON [facility] 05-19-2023 Influenza, High-dose Seasonal, Quadrivalent, Preservative Free Elyssa Adler MD Work Phone: [facility] 05-27-2022 Fluzone High-Dose Quadrivalent 0.7 ML Intramuscular Suspension Prefilled Syringe Terri Allsop Work Phone: [facility] 600 DO Work Phone: 05-27-2022 influenza virus vacc ine, unspecified formulation Luiz MORRISON [facility] 08-10-2021 Moderna COVID-19 Vac cine 100 MCG/0.5ML Intramuscular Suspension Terri Allsoramona Work Phone: [facility] 08-08-2021 SARS-CoV-2 (COVID-19 ) mRNA-1273 vaccine Luiz MORRISON [facility] Comment on above: Result Comment: [facility] 08-03-2021 Fluzone High-Dose Quadrivalent 0.7 ML Intramuscular Suspension Prefilled Syringe Terri Allsop Work Phone: [facility] 600 DO Work Phone: 08-03-2021 influenza virus vacc ine, unspecified formulation Luiz MORRISON [facility] 08-03-2021 pneumococcal polysaccharide vaccine, 23 valent Terri Allsop Work Phone: [facility] 600 DO Work Phone: 2021 Moderna COVID-19 Vac cine 100 MCG/0.5ML Intramuscular Suspension Terri Allsop Work Phone: [facility] 600 DO Work Phone: 12-05-2020 Moderna COVID-19 Vac cine 100 MCG/0.5ML Intramuscular Suspension Terri Allsop Work Phone: [facility] 600 DO Work Phone: 06-26-2020 influenza virus vacc ine, unspecified formulation [employer] [facility] 06-26-2020 influenza, injectabl e, quadrivalent, preservative free Terri Allsop Work Phone: [facility] 600 DO Work Phone: 06-16-2019 influenza virus vacc ine, unspecified formulation [employer] [facility] 06-16-2019 seasonal influenza, intradermal, preservative free Terri Allsop Work Phone: [facility] 600 DO Work Phone: 06-08-2019 influenza virus vacc ine, unspecified formulation [employer] [facility] 06-08-2019 influenza, seasonal, injectable Terri Allsop Work Phone: [facility] 600 DO Work Phone: 06-07-2019 influenza virus vacc ine, unspecified formulation [employer] [facility] 05-08-2018 influenza virus vacc ine, unspecified formulation Terri Allsop Work Phone: [facility] 600 DO Work Phone: 06-08-2016 influenza virus vacc ine, unspecified formulation Terri Allsop Work Phone: [facility] 600 DO Work Phone: 06-08-2016 pneumococcal polysaccharide vaccine, 23 valent Terri Allsop Work Phone: [facility] 600 DO Work Phone: 05-16-2015 influenza virus vacc ine, unspecified formulation Terri Allsop Work Phone: [facility] 600 DO Work Phone: 06-22-2013 influenza virus vacc ine, unspecified formulation Terri Allsop Work Phone: [facility] 600 DO Work Phone: 06-21-2013 pneumococcal polysaccharide vaccine, 23 valent Terri Allsop Work Phone: [facility] 600 DO Work Phone: 05-01-2012 influenza virus vacc ine, whole virus Terri Allsop Work Phone: [facility] 600 DO Work Phone: 05-01-2012 influenza, whole Luiz ANDREW ERS [facility] influenza virus vacc ine, unspecified formulation Terri Allsop Work Phone: [facility] 600 DO Work Phone: Comment on above: 2011 2006 Payers Date Payer Category Payer Self-pay [id number] 2021 Private Health Insurance [employer] [id number] 2018 Unknown 2014 Unknown [id number] 1956 Unknown [id number]. 356 1956 Unknown [id number]. 356 1956 Unknown [id number]. 1244 1956 Unknown [id number] [id number]. 1258 1956 Unknown [id number] [id number]. 1258 1956 Unknown [id number] [id number]. 1258 1956 Unknown [id number] [id number]. 1258 1956 Unknown [id number] [id number]. 1258 1956 Unknown [id number] 2.16.840.1.133142.3.579.2. 1258 1956 Unknown [id number] [id number]. 1258 1956 Unknown [id number] [id number]. 1259 1956 Unknown [id number] [id number]. 1259 1956 Unknown [id number] 1955 Unknown [id number]. 727 1955 Unknown [id number]. 727 1955 Unknown [id number]. 727 1955 Unknown [id number]. 727 Unknown [id number]. 531 Unknown [id number]. 531 Unknown [id number] [id number]. 531 Unknown [id number]. 531 Social History Date Type Detail Facility [facility] Tobacco smoking consumption unknown [facility] Start: 09-30-2023 End: 04-13-2024 Caffeine use Caffeine use [facility] 600 DO Work Phone: Start: 11-04-2021 End: 01-04-2023 Tobacco smoking status Never smoked tobacco (finding) [facility] [place] Tobacco smoking status Ex-smoker (finding ) [facility] [place] Tobacco smoking status Never [facility] Start: 09-30-2023 End: 04-13-2024 Sex Assigned At Male [facility] Start: 1955 Sex Assigned At Male F [facility] Start: 04-12-2018 End: 01-04-2023 Tobacco use and exposure Smokeless tobacco non-user [facility] Start: 05-21-2022 End: 04-13-2024 Alcohol intake Lifetime non-drinker (finding) [facility] Start: 08-27-2019 History SDOH Alcohol Frequency 1 [facility] Start: 1955 Sex Assigned At Not on file C [facility] Start: 05-11-2022 End: 09-30-2023 Exposure to SARS-CoV-2 (event) Not sure [facility] Start: 01-03-2023 Alcohol Comment caffeine: 2-3 cups per day [facility] Goals Date Patient Goal Desired Activity /State Functional Status Date Assessment Result Facility 06-20-2024 Functional Status N/A [facility] 06-15-2023 Functional Status N/A [facility] 11-03-2022 Functional Status N/A [facility] 06-24-2022 Functional Status N/A [facility] 05-12-2022 Functional Status N/A [facility] 04-28-2022 Functional status Patient at Baseline [facility] Work Phone: 04-01-2022 Functional Status N/A [facility] [place] 03-17-2022 Functional Status N/A [facility] Mental Status Date Assessment Result Facility 04-28-2022 Cognitive function Cognitive Sta tus Patient at Baseline [facility] Work Phone: Clinical Notes 08-15-2020 to 06-20-2024 Telephone Encounter - Yudith Daniel NP - 06/13/2024 10:59 AM ESTTelephone Encounter - Yudith DanielEMILIANA - 06/13/2024 10:59 AM ROSA Crane - [...] urethra. Follow these instructions at home: Take blza-zfw-bvzuvng and prescription medicines only as told by [...] provider. Document Revised: 02/10/2022 Document Reviewed: 02/10/2022 [employer] Patient Education 2023 [employer]. Follow Up Care 06/15/2023 14:27:36 With:TAMIKO SAEZ, Luiz Jackson, URL Address: [facility] [address] , [place] [address]- When: Unknown [facility] 06-20-2024 Evaluation + Plan note Diagnostic Tests PendingPSA Total 06/20/24 [facility] 06-20-2024 Note Patient Education Urology Benign Prostatic Hyperplasia Benign [...] or symptoms? Symptoms of this condition include: ??? Getting up often during the night to urinate. ??? Needing to urinate frequently during the day. ??? Difficulty starting urine flow. ??? Decrease in size and strength of your urine stream. ??? Leaking (dribbling) after urinating. ??? Inability to pass urine. This needs immediate treatment. ??? Inability to completely empty your bladder. ??? Pain when you pass urine. This is more common if there is also an infection. ??? Urinary tract infection (UTI). How is this diagnosed? This condition is diagnosed based on your medical history, a physical exam, and your symptoms. Tests will also be done, such as: ??? A post-void bladder scan. This measures any amount of urine that may remain in your bladder after you finish urinating. ??? A digital rectal exam. In a rectal exam, your health care provider checks your prostate by putting a lubricated, gloved finger into your rectum to feel the back of your prostate gland. This exam detects the size of your gland and any abnormal lumps or growths. ??? An exam of your urine (urinalysis). ??? A prostate specific antigen (PSA) screening. This is a blood test used to screen for prostate cancer. ??? An ultrasound. This test uses sound waves [...] severity of your condition. Treatment may include: ??? Observation and yearly exams. This may be the only treatment needed if your condition and symptoms are mild. ??? Medicines to relieve your symptoms, including: ? Medicines to shrink the prostate. ? Medicines to relax the muscle of the prostate. ??? Surgery in severe cases. Surgery may include: [...] the urethra. Follow these instructions at home: ??? Take plro-yho-txzpaql and prescription medicines only as told by your health care provider. ??? Monitor your symptoms for any changes. Contact your health care provider with any changes. ??? Avoid drinking large amounts of liquid before going to bed or out in public. ??? Avoid or reduce how much caffeine or alcohol you drink. ??? Give yourself time when you urinate. ??? Keep all follow-up visits. This is important. Contact a health care provider if: ??? You have unexplained back pain. ??? Your symptoms do not get (more content not included)... [facility] 06-13-2024 Telephone encounter Note HR OOO, Rx sent. [facility] 06-13-2024 Miscellaneous Notes HR OOO, Rx sent. documented in this encounter [facility] 06-04-2024 History of Present illness Narrative Images [...] subungual debris. They were painful to palpation 47547 on the right 26511 on the left. VASC: DP /PT were nonpalpable bilateral. Capillary refill time < 3 seconds Digits 1-5 bilateral NEURO: [place] [employer] 5.07 monofilament was intact B/L. Vibratory [...] 10. ROSA Redmond documented in this encounter [facility] 06-01-2024 Note Date of Procedure 06/01/2024. [place] [employer]osives Engineer: tomás. Interpretation Right Eye Findings include Epiretinal [...] any questions please contact our office at [phone]. After office hours or on the weekend, please call Dr. Decker on his cell phone at [phone]. documented in this encounter [facility] 06-01-2024 Note HNO ID: [id number] Author: JOSSELIN DECKER MD Service: ? Author [...] agree with all of its relevant components. [facility] 06-01-2024 History of Present illness Narrative [...] its relevant components. documented in this encounter [facility] 05-10-2024 History of Present illness [...] in regimen. Continue to follow w/ vascular intermediate frame tender current use of anticoagulant Cardiomyopathy, unspecified type (CMS/HCC) Stable, continue to monitor. No change in regimen. PVD (peripheral vascular disease) (CMS/HCC) Stable, continue to monitor. No change in regimen. Continue to follow w/ vascular Essential hypertension (CMS/HCC) Stable, continue to monitor. No change in regimen. BMI 40.0-44.9, adult (CMS/HCC) Morbid obesity (CMS/HCC) - continue to monitor weight documented in this encounter [facility] 09-30-2023 History of Present illness Narrative Subjective [...] very compliant Delores Ac MD, [facility] Review of Systems All other [...] Scribe Attestation By signing my name below, Ishiraleticldany , Scribe attest that this documentation has [...] discussion and plan. documented in this encounter [facility] Work Phone: 09-30-2023 Instructions Kitty [...] Increase physical activity. documented in this encounter [facility] Work Phone: 06-15-2023 Hospital Discharge [...] urethra. Follow these instructions at home: Take txud-asb-ofhcgva and prescription medicines only as told by [...] provider. Document Revised: 02/10/2022 Document Reviewed: 02/10/2022 [employer] Patient Education 2022 [employer]. Follow Up Care 11/03/2022 16:39:32 With:TAMIKO SAEZ, Luiz Jackson, URL Address: [facility] [address], [place] [address]- When: Unknown [facility] 02-21-2023 Evaluation note Encounter Date Diagnosis Assessment Notes Feb, Obstructive sleep apnea (ICD-10 - G47.33) Patient was encouraged to continue his CPAP regularly, work on losing weight, monitor his blood pressure regularly and keep a record of his readings to review with his finisher card tender, asked him to report any difficulties or issues with his treatment, DOS otherwise we will see him for follow-up in 1 year Feb, Hypertension, unspecified type (ICD-10 - I10) [employer] Other 03-29-2023 Hospital Discharge instructions Patient Education [...] urethra. Follow these instructions at home: Take ylvu-tnn-tifvwkn and prescription medicines only as told by [...] 07/25/2006 Document Revised: 06/19/2019 Document Reviewed: 08/29/2017 [employer] Patient Education 2020 [employer]. Follow Up Care 07/29/2022 09:30:30 With:TAMIKO SAEZ, Luiz Jackson, URL Address: [facility] [address] , [place] [address]- When: Unknown [facility] 11-17-2022 Hospital Discharge instructions Patient Education [...] a slower pace than normal. ?Eat soft, lnzx-gg-hxwudl foods. Take jrhy-kvx-njeirql or prescription medicines only as told by [...] 03/08/2005 Document Revised: 05/17/2018 Document Reviewed: 10/05/2016 [employer] Patient Education 2020 [employer]. Follow Up Care 02/15/2022 10:08:03 With:William Brush Address:Unknown When: Unknown Comments:will call with results [facility]10-14-[facility] Instructions* Patient Instructions* Cici Merida OD - 05/21/2022 3:51 PM EDT ASSESSMENT/PLAN: [...] delay. Recommended yearly exams. [facility] of Present illness Narrative* [...] and examined this patient. [facility] Discharge instructions Patient Education [...] Follow these instructions at home: Medicines Take hmyo-spo-nryhtcq and prescription medicines only as told by [...] prevent or treat constipation, such as: ?Take fegr-gvi-fsmexxy or prescription medicines. ?Eat foods that are [...] 07/25/2006 Document Revised: 11/14/2019 Document Reviewed: 04/25/2019 [email or web address] Patient Education 2020 [employer]. Follow Up Care 04/30/2022 08:49:28 With:TAMIKO SAEZ, Luiz Jackson, URL Address: [facility] [address] [place] [address]- [phone] When:08/12/2022 [facility] [place] 08-10-2022 Hospital Discharge instructions Patient Education 03/17/2022 [...] including vitamins, herbs, eye drops, creams, and hfal-kby-kcoebga medicines. Any problems you or family members [...] provider tells you to take them. Taking wioz-dde-wewlzex medicines, vitamins, herbs, and supplements. Eating and [...] 07/25/2006 Document Revised: 11/14/2019 Document Reviewed: 04/25/2019 [email or web address] Patient Education 2020 [employer]. Follow Up Care 02/12/2022 10:45:59 With:TAMIKO SAEZ, Luiz Jackson, URL Address: [facility] [address] , [place] [address] [phone] When: Unknown Comments:schedule TURP [facility] [place] 07-26-2022 Hospital Discharge instructions Patient Education 03/02/2022 [...] for your post-operative appointment in 1-2 weeks [phone] or [phone] Follow Up Care 02/12/2022 10:36:38 With:Luiz MORRISON Address: [facility] [address], [place] [address]- [facility] (1) When: Unknown Comments:Appointment has already been scheduled [facility]07-18-2022 Evaluation note* Encounter Date Diagnosis [...] G47.61) Feb, Morbid obesity (ICD-10 - E66.01) [employer] Other 05-16-2022 Hospital Discharge instructions Patient Education [...] Follow these instructions at home: Medicines Take mrqb-qrh-sswdlgy and prescription medicines only as told by [...] or the blood stops without treatment. Take tdpu-uop-hvlwkey and prescription medicines only as told by your health care provider. Drink enough fluid to keep your urine clear or pale yellow. This information is not intended to replace advice given to you by your health care provider. Make sure you discuss any questions you have with your health care provider. Document Released: 07/25/2006 Document Revised: 12/19/2019 Document Reviewed: 08/27/2017 [email or web address] Patient Education 2020 [employer]. Follow Up Care 12/01/2021 08:55:58 With:TAMIKO SAEZ, Luiz Jackson, URL Address: [facility] [address] , [place] [address]- When: Unknown Comments:Schedule TURP. [facility] [place] 05-06-2022 Hospital Discharge instructions Patient Education 12/11/2021 [...] food choices, such as grocery stores and [employer] markets. What are the signs or symptoms? [...] and how much exercise you get. Take cykm-gso-ygfsehd and prescription medicines only as told by [...] 09/01/2005 Document Revised: 03/29/2019 Document Reviewed: 03/29/2019 [employer] Patient Education 2020 [employer]. [facility] [place] 04-26-2022 Evaluation + Plan noteExtracted from: Title:Urology [...] list: All Problems asthma / SNOMED CT 440996045 / Confirmed Hypocalcemia / SNOMED CT 3635337 / Confirmed Hypokalemia / SNOMED CT 99118387 / Confirmed Obesity / SNOMED CT 3511198018 / Confirmed Chronic heart failure / SNOMED CT 13720703 / Confirmed Hyperlipidemia / SNOMED CT 19016021 / Confirmed Hyperglycemia / SNOMED CT 569955563 / Confirmed Hypertension / SNOMED CT 10572204 / Confirmed Male hypogonadism / SNOMED CT 31609501 / Confirmed Onychomycosis / SNOMED CT 2481163785 / Confirmed Hypothyroid / SNOMED CT 23450016 / Confirmed Depression / SNOMED CT 55416636 / Confirmed Heart disease / SNOMED CT 76638593 / Confirmed Histories Past Medical History: Active asthma (911822211): Onset in 1970 at 15 years. Resolved Depression (300.4): Onset on 12/10/2009 at 54 years. Resolved. Comments: 12/10/2009 EDT 10:06 EDT - Family History: Cardiac arrhythmia Father () Malignant lymphoma Mother () Comments: 12/07/2009 0:16 EDT - Merlyn Sampson RN parathyroid cancer Procedure history: Colonoscopy ([id number]) on 10/08/2011 at 56 Years. Colonoscopy (728777495) on 08/10/2011 at 56 Years. Tonsillectomy (692790447). Social History Social & Psychosocial Habits Alcohol [...] Date:12/03/2021 08:15:00 AM Scheduled Provider: Location:[facility] Appointment Type:Urology CALL PAT FT Appointment Date:12/08/2021 08:00:00 AM Scheduled Provider: Location:[facility] Appointment Type:Urology FT Appointment Date:12/11/2021 08:20:00 AM Scheduled Provider:William Brush MD Location:[facility] Appointment Type:[place] [address] Appointment Date:12/22/2021 08:00:00 AM Scheduled Provider:Luiz MORRISON MD Location:[facility] Appointment Type:URO Office Visit Diagnostic Tests Pending * UroVysion Fish and Urine Cyto ([facility]) 12/01/21 [facility]04-26-2022 Hospital Discharge instructions Patient Education [...] [facility] [address], [place] [address]- Business (1) When: Unknown Comments:Office will call to schedule follow up [facility]03-30-2022 Evaluation + Plan note Future Scheduled Tests Radiology* CT Urogram 11/04/21 [facility] [id number] Hospital Discharge instructions Patient Education 11/04/2021 11:30:36 [...] Follow these instructions at home: Medicines Take wnwo-aqp-wdizlni and prescription medicines only as told by [...] or the blood stops without treatment. Take ctbz-xuu-qwuyzbi and prescription medicines only as told by your health care provider. Drink enough fluid to keep your urine clear or pale yellow. This information is not intended to replace advice given to you by your health care provider. Make sure you discuss any questions you have with your health care provider. Document Released: 07/25/2006 Document Revised: 12/19/2019 Document Reviewed: 08/27/2017 [employer] Patient Education 2020 [employer]. Follow Up Care 10/06/2021 15:23:45 With:TAMIKO SAEZ, Luiz Jackson, URL Address: [facility] [address] , [place] [address] [phone] When: Unknown [facility] 01-08-2021 History of Past illness Narrative* Problem Noted Date Resolved Date Epiretinal membrane (ERM) of right eye 1 09/04/2021 documented as of this encounter (statuses as of 05/21/2022) [facility] Appointment Date:12/01/2021 08:00:00 AM Scheduled Provider: Location:[facility] Appointment Type:Urology FT Appointment Date:12/11/2021 08:20:00 AM Scheduled Provider:William Brush MD Location:[facility] [address] Type[address] note Future Appointments Appointment Date:12/11/2021 08:20:00 AM Scheduled Provider:William Brush MD Location:[facility] Appointment Type:[place] [address] Appointment Date:12/22/2021 08:00:00 AM Scheduled Provider:Luiz MORRISON MD Location:[facility] Appointment Type[facility]O [facility] App[facility]ments Appointment Date:12/11/2021 08:20:00 AM Scheduled Provider:William Brush MD Location:[facility] Appointment Type: Appointment Date:12/22/2021 08:00:00 AM Scheduled Provider:Luiz MORRISON MD [facility] Office Visit Diagnostic Tests Pending * Testosterone F&T 12[facility]10[facility] App[facility]ments Appointment Date:12/22/2021 08:00:00 AM Scheduled Provider:Luiz MORRISON MD Location:[facility] Appointment Type:URO Office Visit Appointment Date:02/19/2022 12:30:00 PM Scheduled Provider: Location:[facility] Services Appointment Type:Surgery FT [facility] General [facility] [place] Evaluation + Plan note Future Appointments Appointment Date:02/19/2022 12:30:00 PM Scheduled Provider: Location:[facility] Appointment Type:Surgery FT Diagnostic Tests Pending * PSA Total 12/22/21 [facility] Evaluation + Plan note Future Appointments Appointment Date:02/19/2022 12:30:00 PM Scheduled Provider: Location:[facility] Future App[facility]ments Appointment Date:03/02/2022 09:45:00 AM Scheduled Provider: [facility] Appointment Type:Urology FT Appointment Date:03/17/2022 02:00:00 PM Scheduled Provider:Luiz MORRISON MD [facility] Type:URO Office Visit Appointment Date:06/25/2022 12:30:00 PM Scheduled Provider: Location:[facility] App[facility]ments Appointment Date:03/17/2022 02:00:00 PM Scheduled Provider:Luiz MORRISON MD Location:[facility] Appointment Type:URO Office Visit Appointment Date:06/25/2022 12:30:00 PM Scheduled Provider: Location:[facility] Appointment Type:Surgery FT Diagnostic Tests Pending * Prostate Histology ([facility]) 03/02/22 [facility] Future Appointments Appointment Date:06/25/2022 12:30:00 PM Scheduled Provider: Location:[facility] Appointment Type:Surgery FT [facility] Evaluation + Plan note Future Appointments Appointment Date:04/06/2022 02:30:00 PM Scheduled Provider:Milo Gonzales MD Location:[facility] Appointment Type:Pain Management - New (FT) Appointment Date:06/25/2022 12:30:00 PM Scheduled Provider: Location:[facility] Appointment Type:Surgery FT [facility] [place] Evaluation + Plan note Future Appointments Appointment Date:05/12/2022 08:00:00 AM Scheduled Provider:Luiz MORRISON MD Location:[facility] Appointment Type:URO Office Visit Appointment Date:06/25/2022 12:30:00 PM Scheduled Provider: Location:[facility] Appointment Type:Surgery FT [facility] Evaluation + Plan note Future Appointments Appointment Date:06/24/2022 12:30:00 PM Scheduled Provider: Location:[facility] Appointment Type:Surgery FT Appointment Date:08/11/2022 10:30:00 AM Scheduled Provider:Luiz MORRISON MD Location:[facility] Appointment Type:URO Office Visit [facility] Evaluation + Plan note Future Appointments Appointment Date:08/11/2022 10:30:00 AM Scheduled Provider:Luiz MORRISON MD Location:[facility] App[facility] Appointment Date:11/03/2022 03:00:00 PM Scheduled Provider:Luiz MORRISON MD Location:[facility] [place] Appointment Type:[facility]O [facility] Future App[facility]ments Appointment Date:06/15/2023 01:15:00 PM Scheduled Provider:Luiz MORRISON MD Location:[facility] [place] Appointment Type:URO Office Visit Diagnostic Tests Pending * PSA Total 11/03/22 [facility] Evaluation + Plan note Future Appointments Appointment Date:06/15/2023 01:15:00 PM Scheduled Provider:Luiz MORRISON MD Location:[facility] [place] Appointment Type:URO Office Visit Diagnostic Tests Pending * PSA Total 04/30/23 [facility] App[facility]ments Appointment Date:06/20/2024 01:00:00 PM Scheduled Provider:Luiz MORRISON MD [facility] Type:[facility] Office Visit Diagnostic Tests Pending * PSA Total 06/15/23 [facility] Evaluation + Plan note Future Appointments Appointment Date:06/20/2024 01:00:00 PM Scheduled Provider:Luiz MORRISON MD [facility] note[facility] assessment information available [facility] Work Phone: Evaluation note* Diagnosis Epiretinal membrane (ERM) of both eyes- Primary Floppy eyelid syndrome of both eyes Combined forms of age-related cataract of both eyes Other and combined forms of senile cataract Posterior vitreous detachment of both eyes Vitreous degeneration Vitreous floaters of both eyes [facility] Essential hypertension Unspecified essential hypertension Non-ischemic cardiomyopathy (CMS/HCC) Other primary cardiomyopathies Hyperlipidemia, unspecified hyperlipidemia type Obstructive sleep apnea, adult Morbid obesity with BMI of 40.0-44.9, adult (CMS/HCC) documented in this encounter [facility] Work Phone: Evaluation note* Diagnosis Onset Date Resolution Status Hypertension acute Sleep apnea with use of cont inuous positive airway pressure (CPAP) acute Hypertension acute Sleep apnea with use of cont inuous positive airway pressure (CPAP) acute [facility] Work Phone: Evaluation note* Diagnosis Acute deep vein thrombosis (DVT) of distal vein of right lower extremity (CMS/HCC)- Primary MCC current use of anticoagulant Cardiomyopathy, unspecified type (CMS/HCC) PVD (peripheral vascular disease) (CMS/HCC) Unspecified peripheral vascular disease Essential hypertension (CMS/HCC) Unspecified essential hypertension BMI 40.0-44.9, adult (CMS/HCC) Morbid obesity ([facility]/HCC) Morbid obesity documented in this encounter [facility] HealthcareEvaluation note* Diagnosis Epiretinal membrane (ERM) of both eyes- Primary Floppy eyelid syndrome of both eyes Combined form of age-related cataract, both eyes Benign prostatic hyperplasia without lower urinary tract symptoms Anxiety disorder, unspecified type Essential hypertension Unspecified essential hypertension Mixed hyperlipidemia Obstructive sleep apnea syndrome Obstructive sleep apnea (adult) (pediatric) [facility] Onychomycosis- Primary Dermatophytosis of nail Pain in left toe(s) Pain in right toe(s) documented in this encounter [facility] HealthcareEvaluation note* Diagnosis Primary hypertension (CMS/HCC) Unspecified essential hypertension Seasonal allergies Allergic rhinitis, cause unspecified documented in this encounter [facility] HealthcareHistory general Narrative - Reported* Type Description Date Medical History CARDIOMYOPATHY Medical History HYPERTENSION Medical History HYPOKALEMIA Medical History HYPERLIPIDEMIA Medical History FATTY LIVER Medical History ASTHMA Medical History SLEEP APNEA Medical History DEPRESSION Medical History RESTLESS LEG SYNDROME Surgical History HEMMRHOIDECTOMY 1990 Surgical History ANGIOGRAM Data Impact Other Hospital course Narrative No data available for this section [facility] Discharge instructions No data available for this section [facility] No data available for this section [facility] ([facility]arrative)* Consultation (Routine) - Authorized Specialty Diagnoses / Procedures Referred By Contac t Referred To Contact Cardiology Diagnoses Essential hypertension Non-ischemic cardiomyopathy (CMS/HCC) Procedures Follow Up In Cardiology Delores Ac MD [address] [facility] [address] [place] [address] Delores Ac MD [address] [facility] [address], [facility] [address] [place] [address] Referral ID Status Reason Start Date Expiration Date V isits Requested Visits Authorized [id number] Authorized 09/30/2023 09/29/2024 1 1 [facility] Work Phone: Summary Purpose Family History [...] on CPAP machine * Delores Ac MD, [facility] PHU LOPEZ is being seen for an annual follow-up of.* PHU LOPEZ is being seen for an annual follow-up of. * Patient is in the office for follow-up for the problems noted below. 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 He reports no symptoms of dyspnea [...] been very compliant * [facility] Ac MD, [facility] * PHU LOPEZ is being seen for [...] section and content) DATE CREATED AUTHOR 05/19/2018 [facility] DATE CREATED AUTHOR AUTHOR'S ORGANIZ ATION 03/14/2021 [facility] DATE CREATED AUTHOR AUTHOR'S ORGANIZ ATION 09/29/2022 [facility] DATE CREATED AUTHOR AUTHOR'S ORGANIZ ATION 09/29/2022 [facility] DATE CREATED AUTHOR AUTHOR'S ORGANIZ ATION 02/24/2023 [facility] DATE CREATED AUTHOR AUTHOR'S ORGANIZ ATION 04/17/2024 [facility] DATE CREATED AUTHOR AUTHOR'S ORGANIZ ATION 06/01/2024 [facility] DATE CREATED AUTHOR AUTHOR'S ORGANIZ ATION 06/03/2024 [facility] DATE CREATED AUTHOR AUTHOR'S ORGANIZ ATION 06/04/2024 [facility] DATE CREATED AUTHOR AUTHOR'S ORGANIZ ATION 06/22/2024 [facility] <item> Privacy Markings (unrecogniz ed [...] Active Burak Rangel MD Attending Provider Active Asparagus Cutter Relationship Specialty Start Date End Date Terri Santos DO [address] [place] [address] PCP - General Family Medicine 04/11/18 Asparagus Cutter Relationship Specialty Start Date End Date Terri Santos DO [address] [address] [place] [address] PCP - General 09/11/20 Team Status: Inactive [...] May 07, 2024 End: May 07, 2024 Asparagus Cutter Relationship Specialty Start Date End Date Terri Santos DO PCP - Medical [place] [employer] 08/08/09 08/07/99 Liliana Waller MD [address] [place] [address] PCP - General Family Medicine 03/26/24 Asparagus Cutter Relationship Specialty Start Date End Date Terri Santos DO PCP - Medical [place] [employer] 08/08/09 08/07/99 Liliana Waller MD [address] [place] [address] PCP - General Family Medicine 03/26/24 Asparagus Cutter Relationship Specialty Start Date End Date Terri Santos DO [address] [place] [address] PCP - General Family Medicine 04/11/18 Syed ZhuianJOSE otero [address] [place] [address] Referring Optometry 05/27/23 Asparagus Cutter Relationship Specialty Start Date End Date Terri Santos DO PCP - Medical [place] [employer] 08/08/09 08/07/99 Liliana Waller MD [address] [place] [address] PCP - General Family Medicine 03/26/24 Asparagus Cutter Relationship Specialty Start Date End Date Terri Santos DO PCP - Medical [place] [employer] 08/08/09 08/07/99 Liliana Waller MD [address] [place] [address] PCP - General Family Medicine 03/26/24 Goals [...] or prosecute any alcohol or drug abuse patient.[facility] the event this information is protected by the Federal Confidentiality of Alcohol and Drug Abuse Patient Records regulations: The Federal rules restrict any use of the information to criminally investigate or prosecute any alcohol or drug abuse patient.[facility] FOR RECORDS PERTAINING TO PATIENTS [...] BE BASED ON THE PRIMARY CLINICAL RECORDS. [facility]. provides no warranty or guarantee of the accuracy or completeness of information in this document.
--- NOTE | 2024-07-20 09:07 | P.DS_ITS ---
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
--- NOTE | 2024-07-20 09:07 | W.VEIN ---
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
== END 2024-07-20 09:27 | disposition home or self-care (01) ==
PROVIDERS: PCP Radiology Diagnostic Radiology; Visit Provider Radiology Diagnostic Radiology
DX: I80.02 Phlebitis and thrombophlebitis of superficial vessels of left lower extremity (principal)
CPT/HCPCS: 93971; G0463

== ENCOUNTER 2024-07-27 10:13 | Outpatient (OUT) | payer OTHER, SELFPAY ==
--- NOTE | 2024-07-26 13:33 | VEINCLINIC_ITS ---
Vital Signs 07/27/24 11:20 BP 127/73 BP Location Left Brachial BP Position Sitting BP Cuff Size Adult BP Source Automatic Cuff Respiration 18 Pulse 73 Pulse Source Monitor Pulse Oximetry (%) 97 Oxygen Delivery Method Room Air Comment The patient's blood pressure is elevated. Varicose Veins Patient in today for microfoam chemical ablation right leg Guillermo Smith MD personally performed the services described in this documentation, as scribed by Gerald Lopez RN in my presence and it is both accurate and complete. IGerald RN, am scribing for, and in the presence of, Dr. Guillermo Gurrola and in the presence of the patient. thigh: bilateral, knee: bilateral, calf: bilateral, ankle: bilateral and delaney: bilateral aching and dull 3 2 years Worsened in recent months: Yes walking elevating extremities and compression stockings Reports heaviness, restless legs, limb pain, edema and leg edema History of lower extremity trauma: No Superficial thrombophlebitis: No Family history of varicose veins: no Has patient had previous lower extremity venous surgery: No Patient has previously received the following treatment(s) for lower extremity varicose veins: Reports none Does patient have a history of : not applicable Does patient intend to have future pregnancies: not applicable Has patient had lower extremity venous scan with relux testing: Yes Support hose used: Yes Problems walking or doing physical activity: Yes How does it affect you: unable to walk long distances Do you walk much: No Do you stand much: Yes Medication compliance: good Review of Systems ROS Narrative Guillermo Smith MD personally performed the services described in this documentation, as scribed by Gerald Lopez RN in my presence and it is both accurate and complete. Gerald Smith RN, am scribing for, and in the presence of, Dr. Guillermo Gurrola and in the presence of the patient. Status of ROS 10 or more systems reviewed and unremark able except as noted in history and below Cardiovascular Reports: edema and swelling of feet/ankles Musculoskeletal Reports: extremity pain, extremity swelling, joint pain, joint swelling and muscle cramps Integumentary/Breast Reports: rash, itching and redness [facility] Medical History (Updated 06/01/24 @ 07:33 by Jane Farris) Phlebitis and thrombophlebitis of superficial vessels of left lower extremity ?I80.02 - Phlebitis and thrombophlebitis of superficial vessels of left lower extremity (ICD-10) Phlebitis and thrombophlebitis of superficial vessels of right lower extremity ?I80.01 - Phlebitis and thrombophlebitis of superficial vessels of right lower extremity (ICD-10) Hemorrhoids, internal ?K64.8 - Other hemorrhoids (ICD-10) Pain due to varicose veins of both lower extremities ?I83.813 - Varicose veins of bilateral lower extremities with pain (ICD-10) Tinea pedis ?B35.3 - Tinea pedis (ICD-10) Sleep apnea ?G47.30 - Sleep apnea, unspecified (ICD-10) Restless leg ?G25.81 - Restless legs syndrome (ICD-10) Onychomycosis ?B35.1 - Tinea unguium (ICD-10) Obesity ?E66.9 - Obesity, unspecified (ICD-10) Left ventricular failure ?I50.1 - Left ventricular failure, unspecified (ICD-10) Hypokalemia ?E87.6 - Hypokalemia (ICD-10) Hyperglycemia ?R73.9 - Hyperglycemia, unspecified (ICD-10) Hyperlipemia ?E78.5 - Hyperlipidemia, unspecified (ICD-10) Accelerated essential hypertension ?I10 - Essential (primary) hypertension (ICD-10) Elevated PSA ?R97.20 - Elevated prostate specific antigen [PSA] (ICD-10) Cardiomyopathy ?I42.9 - Cardiomyopathy, unspecified (ICD-10) Anxiety ?F41.9 - Anxiety disorder, unspecified (ICD-10) Surgical History (Updated 07/27/24 @ 11:22 by Gerald Lopez) S/P sclerotherapy of varicose veins ?Z98.890 - Other specified postprocedural states (ICD-10) ?Z86.79 - Personal history of other diseases of the circulatory system (ICD- 10) Status post laser ablation of incompetent vein ?Z98.890 - Other specified postprocedural states (ICD-10) Status post laser ablation of incompetent vein ?Z98.890 - Other specified postprocedural states (ICD-10) Status post laser ablation of incompetent vein ?Z98.890 - Other specified postprocedural states (ICD-10) Status post laser ablation of incompetent vein ?Z98.890 - Other specified postprocedural states (ICD-10) S/P TURP ?Z90.79 - Acquired absence of other genital organ(s) (ICD-10) Family History (Updated 04/06/24 @ 10:04 by Destini Carlin, RN) Other Family history of CHF (congestive heart failure) Family history of cancer Family history of hypertension Family history of myocardial infarction Social History (Updated 04/06/24 @ 10:05 by Destini Carlin RN) Within the past year, how often did you have a drink containing alcohol: never Score interpretation: A score less than 4 is consistent with normal alcohol consumption. Smoking status: Never smoker Non-prescribed substance use: denies use Meds Home Medications and Allergies Home Medications ?Medication ?Instructions ?Recorded ?Confirmed ?Type amiloride 5 mg tablet 5 mg PO DAILY 04/06/24 04/06/24 History amlodipine 10 mg tablet 10 mg PO DAILY 04/06/24 04/06/24 History aspirin 325 mg tablet 325 mg PO DAILY 04/06/24 04/06/24 History carvedilol 25 mg tablet (Coreg) 25 mg PO BID 04/06/24 04/06/24 History doxazosin 4 mg tablet (Cardura) 4 mg PO QPM 04/06/24 04/06/24 History finasteride 5 mg tablet 5 mg PO DAILY 04/06/24 04/06/24 History hydralazine .Route DAILY 04/06/24 History hydrochlorothiazide 25 mg tablet 25 mg PO DAILY 04/06/24 04/06/24 History losartan 100 mg tablet 100 mg PO DAILY 04/06/24 04/06/24 History lovastatin 30 mg PO QAM 04/06/24 04/06/24 History montelukast 10 mg tablet 10 mg PO DAILY 04/06/24 04/06/24 History niacin 500 mg capsule,extended 500 mg PO DAILY 04/06/24 04/06/24 History release paroxetine HCl 20 mg tablet 20 mg PO DAILY 04/06/24 04/06/24 History potassium chloride 10 mEq 10 meq PO DAILY 04/06/24 04/06/24 History tablet,extended release (Klor-Con) apixaban 5 mg tablet (Eliquis) 5 mg PO BID 05/04/24 05/04/24 History Allergies Allergy/AdvReac Type Severity Reaction Status Date / Time clarithromycin Allergy Unknown Unknown Verified 04/06/24 09:39 Exam Narrative Exam Narrative: Guillermo Smith MD personally performed the services described in this documentation, as scribed by Gerald Lopez RN in my presence and it is both accurate and complete. Gerald Smith RN, am scribing for, and in the presence of, Dr. Guillermo Gurrola and in the presence of the patient. Constitutional Vital Signs, click to edit/add: Last Vital Signs Pulse 70 04/20/24 09:25 Resp 18 04/20/24 09:25 BP 120/64 04/20/24 09:25 Pulse Ox 96 04/20/24 09:25 Documenting provider has reviewed patient's vital signs: yes Common normals: oriented x3 Nutritional appearance: overweight Lymph Lymphatic: no lymphedema noted Cardio Peripheral pulses: posterior tibial pulses present and dorsalis pedis pulses present Extremity General: calf tenderness, edema and other findings Right lower extremity: lower leg Right lower leg: inspection and palpation Left lower extremity: lower leg Left lower leg: inspection and palpation Neuro Common normals: oriented x3 Assessment and Plan Assessment and Plan (1) Pain due to varicose veins of both lower extremities: Plan f/u evaluation with physician along with right leg limited u/s Guillermo Smith MD personally performed the services described in this documentation, as scribed by Gerald Lopez RN in my presence and it is both accurate and complete. Gerald Smith RN, am scribing for, and in the presence of, Dr. Guillermo Gurrola and in the presence of the patient. Procedures Procedure Instructions Procedures Right leg microfoam chemical ablation/Varithena: Risks and benefits of the procedure were discussed at length and informed written consent was obtained.? Time-out procedure was performed and the correct patient and procedure were confirmed.? Staff present during time-out: Gerald Lopez RN and Guillermo Gurrola MD.? Patient prepped and procedure performed in usual sterile fashion.? Patient was placed in Trendelenburg prior to Polidocanol/Varithena injections. Sclerosing Agent:?? 15cc 1% Polidocanol/Varithena Site Injected: Right lecc varaithena administered in to a distal anterior lower leg 5cc varithena administered in to a distal medial lower leg 3cc varithena administered in to a mid lateral lower leg Number of Injections:? 3 The patient tolerated the procedure well without complication.? Hemostasis was obtained and thigh-high compression stocking was applied with foam pads.? Instructed patient to wear stocking for at least 96 hours and sleep with it and only remove for showering.? The patient was instructed to? wear stocking for 2 weeks.? Patient verbalizes understanding and states they will comply.? Patient was given post-procedure instructions. Patient was discharged in good condition.? Scheduled to undergo limited venous ultrasound and? exam on 08/02/2024. IGuillermo MD personally performed the services described in this documentation, as scribed by Gerald Lopez RN in my presence and it is both accurate and complete. I, Gerald Lopez RN, am scribing for, and in the presence of, Dr. Guillermo Gurrola and in the presence of the patient.
--- NOTE | 2024-07-26 13:35 | P.DS_ITS ---
Discharge Plan Discharge Disposition: Home, Self-Care Outpatient Diagnostics: VC Facility EST LMTD (Routine) Timeframe: 2 Weeks Facility: [facility] - Location: Vein Center Ordered By: Guillermo Gurrola VC EXT Venous RT LMTD (Routine) Timeframe: 2 Weeks Facility: [facility] - Location: Vein Center Ordered By: Guillermo Gurrola Plan of Treatment: f/u evaluation with physician along with left leg limited u/s Patient Instructions: Polidocanol (By injection) (Asclera, Varithena) Print Language: Iraqi
--- NOTE | 2024-07-26 15:41 | W.VEIN ---
Discharge Plan Discharge Disposition: Home, Self-Care Outpatient Diagnostics: VC Facility EST LMTD (Routine) Timeframe: 2 Weeks Facility: [facility] - Location: Vein Center Ordered By: Guillermo Gurrola VC EXT Venous RT LMTD (Routine) Timeframe: 2 Weeks Facility: [facility] - Location: Vein Center Ordered By: Guillermo Gurrola Follow Up Appointments: 08/02/2024 Plan of Treatment: f/u evaluation with physician along with left leg limited u/s Patient Instructions: Polidocanol (By injection) ([place]a [place]) Print Language: Greenlandic Discharge Date/Time: 07/27/24 11:19
--- NOTE | 2024-07-27 10:16 | VEIN_ITS ---
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 HISTORY: I83.813 - Varicose veins of bilateral lower extremities w... Pre-operative Diagnosis: CEAP class C4a venous insufficiency with pain, tenderness, edema and incompetent right saphenous and varicose vein(s), chronic venous insufficiency right leg secondary to venous incompetence Post-operative Diagnosis: CEAP class C4a venous insufficiency with pain, tenderness, edema and incompetent right saphenous and varicose vein(s), chronic venous insufficiency right leg secondary to venous incompetence Procedure Performed: 1. Ultrasound-guided microfoam chemical ablation with Varithenaregistered 2. Intraoperative ultrasound guidance Anesthesia: None Indications for Procedure: 69-year-old presents with a long history of lower extremity pain, subcutaneous edema, varicose veins, skin thickening and hemosiderin staining. The patient failed conservative medical therapy including medical compression stockings, exercise and analgesics. Prior procedures include . Multiple incompetent varicosities of the right leg. Duplex scan showed reflux and enlarged diameters up to 7 mm. The patient underwent informed consent including management options where the complications of infection, bleeding, pain, and skin injury were discussed. Particular attention was spent discussing thrombus extension and deep vein thrombosis as well as the possibility of pulmonary embolus and treatment with oral or injectable blood thinners. Procedure: The patient walked to the procedure room. All applicable staff donned appropriate apparel. A procedure timeout was performed to confirm correct patient, correct extremity, correct procedure, and correct room set-up including presence of all applicable supplies, devices, and drugs. A duplex ultrasound, performed by myself confirmed the location and incompetence of branch saphenous varicosities and their course was marked on the skin together with the dilated tributaries. The extent of treatment of the vein and the associated varicosities was determined through ultrasound mapping. The skin was prepped and then punctured with a butterfly needle and advanced under ultrasound guidance. The Varithenaregistered canister was activated and the canister was primed and purged as required in the instructions for use. Varithenaregistered was drawn into a sterile syringe. Following injections were made: 7 cc injected into a 7 mm varicose vein distal anterior right lower leg 6 cc injected into a 5 mm varicose vein distal medial right lower leg 3 cc injected into a 6 mm varicose vein medial right lower leg Varithenaregistered was slowly administered at 0.5-1.0 cc/second with close observation by ultrasound of its course in the vessels. Total volume utilized was: 16cc. Following administration of Varithenaregistered the leg was elevated and the patient was asked to repeatedly dorsiflex the ankle to limit flow of Varithenaregistered into perforating veins. Once appropriate spasm had been confirmed in the treated veins, the vascular catheter was removed from the leg and light pressure was applied over the puncture site for hemostasis. The common femoral and deep superficial veins were then evaluated for flow and compressibility prior to dressing placement. The lower extremity was kept elevated at 45 degrees above the horizontal and cording material was applied over the saphenous segments and tributaries to allow for eccentric compression over the target vessels including the targeted saphenous vein(s). A multilayer dressing was applied consisting of foam pads, coban and thigh-high 20-30 mm Hg compression elastic support hose were placed on the patient. The leg was lowered only after compression had been applied and the patient was immediately ambulatory. The patient ambulated 10 minutes under supervision and was without apparent concerns at time of release. Post-care instructions include advising patient to keep post-treatment bandages in place and dry for 48 hours, avoid extended periods of inactivity, avoid heavy exercise for one week, wear compression stockings on the treated leg continuously for two weeks, to walk daily for 10 minutes over the next month. The patient was instructed to take an anti-inflammatory medicine as needed and to follow up for color duplex scan of the Saphenous veins, the treated branch saphenous varicosities, the adjacent deep veins, and additional treatment within 7 days. PERSONNEL: Gerald Lopez RN Electronically authenticated by: LUIS MALIK Date: 07/27/2024 11:26
--- OUTSIDE RECORDS SUMMARY | 2024-07-27 10:31 | XMS_ITS | CCD ---
Author Organization [facility] Clini[facility]wy Care Team Providers Care Blockers Skiver Name Role Phone Gurjitalska Danyell Unavailable Unavailable Pocarrilloalska, Danyell Unavailable Unavailable [facility] Unavailable Unavailable Pocarrilloalshortencia, Danyell Unavailable Unavailable Omar Danyell Unavailable Unavailable Terri Santos Unavailable Unavailable Terri Santos Unavailable Chriss Marie Unavailable Unavailable Terri Santos Unavailable Unavailable Unavailable Terri Santos Primary Care Physician [phone] MD Terri Santos Primary Care Provider MD Luiz Morrison Attending Provider MD Burak Rangel Attending Provider [phone] Burak Rangel Unavailable MD Terri Santos Primary [...] Provider MD Burak Rangel Attending Provider Allsop DO, Terri Pearce Primary Care Provider DELORES AC Attending Unavailable ALLSOPTERRI Primary Care Unavailab le Allsop DO, Terri Pfeiffer Unavailable UnavailLiliana Pond MD Primary Care Provider Liliana Waller Primary Care Physician Luiz MORRISON Attending Unavailable Luiz MORRISON Admitting Unavailable Allsop , Terri Pearce Primary Care Provider Jordyn Zhu OD Unavailable ALLTERRI BENEDICT Primary Care Unavailab JOSSELIN Keen Referring Unavailable JOSSELIN DECKER Attending Unavailable DOLADAM HOLLINS Attending Unavailable ALLSOP, TERRI Pfeiffer Attending Unavailable DOLCEADAM Attending Unavailable ALLSOP, TERRI Pfeiffer Attending Unavailable ALLSOP, TERRI Pfeiffer Attending Unavailable DOLADAM HOLLINS Attending Unavailable DOLADAM HOLLINS Attending Unavailable ELYSSA ADLER Attending Unavailable LILIANA WALLER Attending Unavailable DOLADAM HOLLINS Attending Unavailable Allsop, Terri D Referring Unavailable Allsop, Terri Margarette Admitting Unavailable Allsop, Terri D Attending Unavailable MORRISONLuiz R Admitting Unavailable MORRISONLuiz Attending Unavailable Allsop, Terri Pfeiffer Attending Unavailable Allsop, Terri Margarette Admitting Unavailable Luiz MORRISON Attending Unavailable Liliana Waller MD Unavailable Allergies Allergy Classification Reported Allergen(s) Allergy Type Date of Onset Reaction(s) Facility Macrolides (antibiotic) (1 source) Clarithromycin Drug Allergy Unknown [facility] (1 source) No Known Medication Allergies; Translations: [No Known Medication Allergies] Propensity to adverse reactions to drug (disorder) [facility] (9 sources) shellfish, unspecified Allergy to substance (finding) [facility] Work Phone: (16 sources) Clarithromycin; Translations: [clarithromycin] Drug Allergy Unknown [facility] [place] (2 sources) Shellfish; Translations: [SHELLFISH CONTAINING PRODUCTS] Drug Allergy 3 [facility] (2 sources) Shellfish; Translations: [SHELLFISH DERIVED] Propensity to adverse reactions 4 Other [facility] (13 sources) Clarithromycin Allergy to substance 3 Unknown [facility] Work Phone: Medications Current Medications Medication Drug Class(es) Dates Sig (Normalized) Sig (Original) acetaminophen 325 mg / HYDROcodone bitartrate 7.5 mg oral tablet (2 sources) Opioid Agonist Start: 02-12-2022 take 1 tablet by mouth once [facility] [place] 325 mg-7.5 mg oral tablet 1 tab(s), Oral, Once, 1 tab(s), Refill(s) 0, Take 1 hour prior to procedure. Don't drive or operate machinery while taking this medication., [facility], 178, cm, 12/22/21 8:18:00 EDT, Height/Length Dosing, 137.1, kg, 12/22/21 8:17:00 EDT,... Start Date: 02/12/22 Status: Ordered aMILoride hydrochloride 5 mg oral tablet (20 sources) Potassium-sparin g Diuretic Start: 04-13-2022 take 5 mg by mouth twice daily Amiloride Active 5 MG PO Twice daily April 13, 2022 12:00am Start: 06-27-2019 take 2 tablets by mo [facility] once daily aMILoride (MIDAMOR) 5 mg tablet TAKE 2 TABLETS BY MOUTH ONCE DAILY FOR 90 DAYS 1 06/27/2019 Active End: 09-30-2023 take 1 tablet by mouth once daily aMILoride (Midamor) 5 mg tablet Take 1 tablet (5 mg) by mouth once daily. 0 09/30/2023 Discontinued (Other) aMILoride HCl Ac tive Comment on above: TAKE 2 TABLETS BY MO UTH ONCE DAILY FOR 90 DAYS amLODIPine 10 mg oral tablet (20 sources) Dihydropyridine Calcium Channel Jonathan Start: 05-19-20 End: 06-13-20 take 1 tablet by mouth once daily amLODIPine (Norvasc) 10 MG tablet Indications: Primary hypertension (CMS/HCC) Take 1 tablet (10 mg) by mouth Daily 30 tablet 1 06/13/2024 Active Start: 06-10-2021 End: 09-30-2023 take 5 mg by mouth once daily at bedtime Amlodipine Active 5 MG PO Daily at bedtime April 13, 2022 12:00am amLODIPine Besyl ate Active Comment on above: Take 5 mg by mouth o nce daily. apixaban 5 mg oral tablet (15 sources) Factor Xa Inhibitor Start: 04-06-20 take 1 tablet by mouth in the morning apixaban (Eliquis) 5 MG tablet Indications: Blood clot in vein Take 1 tablet (5 mg) by mouth in the morning and 1 tablet (5 mg) before bedtime. 60 tablet 5 04/06/2024 Active {1 (Ascorbic Acid 7540 MG / POLYETHYLENE GLYCOL 3350 59679 MG / Potassium Chloride 1200 MG / Sodium Ascorbate 47360 MG / Sodium Chloride 3200 MG Powder for Oral Solution) / 1 (POLYETHYLENE GLYCOL 3350 731915 MG / Potassium Chloride 1000 MG / [...] Active Start: 03-13-2019 [facility] aspirin 325 mg Tab [...] Start: 08-06-2011 take 2 tablets by mo [facility] twice daily Coreg 12.5 mg Tab [...] 180 Refills: 3 Ordered: 11-May-2022 Bienvenido Lee LING-PRABHAKARValerie Active Carvedilol 12.5 MG Oral Tablet TAKE [...] extended release oral tablet (1 source) Uncompetitive F-dvdnaf-B-aspartate Receptor Antagonist, Sigma-1 Agonist Start: End: take [...] day(s), # 42 cap(s), Refills(s) 0, Pharmacy: [facility], 178, cm, 11/26/21 12:38:00 [...] Daily, # 90 tab(s), Refills(s) 3, Pharmacy: [facility], 178, cm, 06/15/23 13:22:00 [...] sources) Angiotensin 2 Receptor Jonathan Start: 0 End: 4 take 1 tablet by mouth in the morning losartan (Cozaar) 100 MG tablet Indications: Primary hypertension (CMS/HCC) Take 1 tablet (100 mg) by mouth in the morning. 30 tablet 05/19/2023 Active Comment on above: Take 100 mg by mouth once daily. lovastatin 20 mg oral tablet (20 sources) HMG-CoA Reductase Inhibitor Start: 4 take 1.5 tablets by mouth in the morning lovastatin (Mevacor) 20 MG tablet Indications: Mixed hyperlipidemia (CMS/HCC) Take 1.5 tablets (30 mg) by mouth in the morning. 45 tablet 08/09/2023 Active Start: 04-13-2022 take 30 mg by mouth once daily at bedtime Lovastatin Active 30 MG PO Daily at bedtime April 13, 2022 12:00am Start: 03-31-2022 lovastatin 20 mg Tab 30 mg = 1.5 tab(s), Oral, Daily, Refills(s) 0, High cholesterol Start Date: 03/31/22 Status: Ordered Start: 06-12-2019 [facility] lovastatin (MEVACOR) 20 mg tablet TAKE 1 & 1 2 (ONE & ONE HALF) TABLETS BY MOUTH ONCE DAILY 9 06/12/2019 Active Start: 09-23-2017 take 3 tablets by mo [facility] once daily lovastatin 10 mg Tab 30 mg = 3 tab(s), Oral, Daily, Refills(s) 0 Start Date: 09/23/17 Status: Ordered take 2 tablets by [facility] every other day lovastatin (Mevacor) 20 [...] (20 sources) Leukotriene Receptor Antagonist Start: 2 End: 4 take 1 tablet by mouth at [...] oral tablet (20 sources) Nicotinic Acid Start: take 1 tablet by mouth once [...] Refills: 0 Ordered: 31-Aug-2021 DO Active omega 1-sve-cvd-fish oil 360 mg-108 mg- 180 mg-1,200 mg capsule (1 source) End: 09-30-2023 take 1 capsule by mouth once daily omega 9-isw-byx-fish oil 360 mg-108 mg- 180 mg-1,200 mg capsule Take 1 capsule by mouth once daily. 0 09/30/2023 Discontinued (Other) [place]-3 Fatty Acids (3 sources) Start: 04-13-2022 take 2000 mg by mouth once daily at bedtime [place]-3 Fatty Acids Active 2000 MG PO Daily at bedtime April 13, 2022 12:00am [place]-3 Fatty Acids ([place] 3 Fish Oil) Capsule (2 sources) Start: 04-13-2022 take 1 capsule by mouth once daily at bedtime [place]-3 Fatty Acids ([place] 3 Fish Oil) Capsule Active 2000 MG [...] 12:00am Start: 10-07-2011 take 7 tablets by [facility] once daily Klor-Con 10 mEq 70 mEq = 7 tab(s), Oral, Daily, # 210, Refills(s) 0, Prophylaxis Start Date: 10/07/11 Status: Ordered Start: 10-07-2011 take 7 tablets by [facility] once daily Klor-Con 10 mEq 70 mEq = 7 tab(s), Oral, Daily, # 210, Refills(s) 0, Prophylaxis Start Date: 10/07/11 Status: Ordered Start: 10-07-2011 take 7 tablets by [facility] once daily Klor-Con 10 [...] proparacaine 0.5 % 1 Drop (A LCAINE) rivaroxaban 20 mg oral tablet (3 sources) Factor Xa Inhibitor Start: 06-18-2024 End: 06-18-2025 take 1 tablet by mouth at mealtime rivaroxaban (Xarelto) 20 MG tablet Indications: Acute deep vein thrombosis (DVT) of distal vein of right lower extremity (CMS/HCC) Take 1 tablet (20 mg) by mouth in the evening. Take with meals Take with food. 90 tablet 3 06/18/2024 06/18/2025 Active solifenacin succinate 10 mg oral tablet (3 [...] q4wk, # 2 mL, Refills(s) 4, Pharmacy: [facility], 177, cm, 08/28/20 9:27:00 [...] procedure, # 2 tab(s), Refills(s) 0, Pharmacy: [facility] 1986, 178, cm, 11/04/21 10:45:00 EDT, Height/Length [...] 0 Refills: 0 Ordered: 31-Aug-2021 DO Active [place]-3 CAPS (8 sources) [place]-3 CAPS LADONNA E DIRECTED. Quantity: 0 Refills: [...] 02-21-2020 Chronic Genitourinary symptoms and ill-defined conditions (19 sources) [...] disorder] Onset: 0 03-13-2019 Chronic Other aftercare (5 sources) Long-term current use of anticoagulant; Translations: [buttermaker (current) use of anticoagulants] Onset: 4 05-10-2024 [...] nutritional; endocrine; and metabolic disorders (13 sources) Obesity caused by energy imbalance; Translations: [...] 3 12-08-2021 Chronic Phlebitis; thrombophlebitis and thromboembolism (6 sources) Acute deep vein thrombosis of lower [...] apnea (adult)(pediatric)] 03-12-2024 Chronic Residual codes; unclassified (2 sources) H/O: Disorder; [...] 05-27-2023 05-27-2023 Episodic Other connective tissue disease (14 sources) Pain of toe of right foot; Translations: [Pain in right toe(s)] Onset: 01-04-2023 01-04-2023 Episodic Other connective tissue disease (14 sources) Pain of toe of left foot; Translations: [Pain in left toe(s)] Onset: 01-04-2023 01-04-2023 Episodic Other screening for suspected conditions (not mental disorders or infectious disease) (20 sources) Liver function tests abnormal; Translations: [Raised prostate specific antigen] Onset: 12-11-2021 Resolved: 05-10-2024 12-08-2021 Episodic Other skin disorders (13 sources) Skin tag; Translations: [Other hypertrophic disorders of the skin] Onset: 12-18-2023 12-18-2023 Episodic Residual codes; unclassified (20 sources) Edema; Translations: [Edema, unspecified] Onset: 03-11-2023 12-08-2021 Episodic Spondylosis; intervertebral disc disorders; other back problems (20 sources) Acute back pain with sciatica; Translations: [Lumbago with sciatica, right side] Onset: 03-11-2023 03-11-2023 Episodic Thyroid disorders (20 sources) Hypothyroidism; Translations: [Hypothyroidism, unspecified] Onset: 03-11-2023 Resolved: 05-21-2023 05-22-2020 Chronic Unclassified (8 sources) Never smoked tobacco; Translations: [Never a smoker] Results Test Name Value Interpretation Reference Range Facility Ambulatory Visit Summaryon 08-20-2023 Ambulatory Visit Summary Ambulatory Visit Summary [...] mEq) testosterone (testosterone cypionate 200 mg/mL IM [facility]) Procedures Performed Colonoscopy (06/24/2022), TURP - Transurethral [...] [facility] [address] , [place] [address]- Medications What How Much When Why Instructions [...] Intramuscular Every (more content not included)... Normal [facility] Ambulatory Visit Summary Ambulatory Visit Summary PHU [...] [facility] [address] , [place] [address]- Medications What How Much When Why Instructions [...] Intramuscular Every (more content not included)... Normal [facility] Urology Office/Clinic Noteon 06-20-2024 Urology Office/Clinic Note Urology Office/Clinic Note Chief Complaint 1 year follow up HPI Staff 1 year follow up w/PSA & JEANNA Previous PSA 04/30/23 - 0.50, Current PSA 0.6 05/25/24[place] [place] DX: BPH with urinary obstruction, elevated [...] Santos, and Finasteride 5 mg qd. IPSS 6 [...] management with Dr. Velasquez. 4. Anticoagulated (Z79.01: FPC (current) use of anticoagulants) Eliquis. Elevated risk of periop complications. Follow-up With When Contact Information TAMIKO SAEZ, Luiz Jackson, URL [facility] [address] [place] [address]- Additional Instructions: f/u pending MRI prostate Patient [...] urinary obs (more content not included)... Normal [facility] Comment on above: Result Comment: Elec tronically Signed By: Luiz MORRISON MD\.br\Date and Time Signed: 06/20/24 13:41 EST\.br\Electronically Co-Signed By: Angelica Colmenares\.br\Date and Time Co-Signed: 06/20/24 13:39 EST FUNDUS PHOTOS OU (BOTH EYES) on 06-01-2024 [facility] Radiology Study observation (narrative) [facility] OCT MACULA CIRRUS OU (BOTH E YES)on 06-01-2024 [facility] Radiology Study observation (narrative) [facility] CHEMISTRYOrdered By: SYSTEM SYSTEM on 05-25-2024 [...] for this result was chemiluminescence using [employer]'s Access Hybritech PSA reagent. PSA Totalon 05-25-2024 Prostate specific Ag [Mass/Vol] 0.6 ng/mL Normal 0.1-3.5 [facility] Comment on above: Result Comment: The concentration of PSA determined by different manufacturers can vary due to differences in assay methods and reagent specificity. Values obtained from different assay methods cannot be used interchangeably. The methodology used for this result was chemiluminescence using [employer]'s Access Hybritech PSA reagent. Performed By: #### 1 [id number] #### [facility] [address] [place] [address] US LE Venous Duplex Righton 11-29-2023 US [...] Kitchen M.D. Transcribed by: REGLA Technologist: HW [facility] Consent for Treatmenton 11-06 Consent for Treatment [id number]#1.0 0TIFF Normal [facility] Physician Orderon 11-18-2023 Physician Order [id number]#1.0 0TIFF Normal [facility] CBC w/ Auto Diffon 4 Basophils/100 WBC (Bld) 0.8 % Normal 0.0-2.0 [facility] Comment on above: Performed By: #### 2 246230, 01252682, 0750900, 8904309 #### [facility] [address] [place] [address] Basophils/Leukocytes Auto (Bld) [Pure # fraction] 0.1 E9/L Normal 0.0-0.2 [facility] Comment on above: Performed By: #### 2 453481, [id number], 8125317, 6231294 #### [facility] [address] [place] [address] Eosinophils (Bld) [#/Vol] 0.3 E9/L Normal 0.0-0.5 [facility] Comment on above: Performed By: #### 2 109340, 97252796, 3329697, 3457009 #### [facility] [address] [place] [address]102 Eosinophils/100 WBC (Bld) 3.4 % Normal 0.0-8.0 [facility] Comment on above: Performed By: #### 2 918642, 57666809, 5292990, 1486511 #### [facility] [address] [place] [address] Erythrocyte distribution width (RBC) [Ratio] 13.6 % Normal 10.9-14.2 [facility] Comment on above: Performed By: #### 2 801012, 20397331, 0694851, 6009567 #### [facility] [address] [place] [address] Hematocrit (Bld) [Volume fraction] 39.9 % Normal 37.7-49.0 [facility] Comment on above: Performed By: #### 2 960916, 07855066, 4549024, 7951795 #### [facility] [address] [place] [address]7528 Hemoglobin (Bld) [Mass/Vol] 13.7 g/dL Normal 13.5-17.5 [facility] Comment on above: Performed By: #### 2 779284, 00089056, 5717284, 4738671 #### [facility] [address] [place] [address] 19454 Lymphocytes (Bld) [#/Vol] 1.5 E9/L Normal 1.0-4.0 [facility] Comment on above: Performed By: #### 2 821461, 61366350, 7638655, 3758704 #### [facility] [address] [place] [address]255 Lymphocytes/100 WBC (Bld) 20.2 % Normal 14.0-50.0 [facility] Comment on above: Performed By: #### 2 176411, 51887749, 2429687, 0561432 #### [facility] [address] [place] [address]6729 MCH (RBC) [Entitic mass] 30.4 pg Normal 27.0-34.0 [facility] Comment on above: Performed By: #### 2 913909, 10487558, 4308272, 7659766 #### [facility] [address] [place] [address] MCHC (RBC) [Mass/Vol] 34.3 g/dL Normal 31.4-36.0 [facility] Comment on above: Performed By: #### 2 589507, 19395018, 7587189, 9572678 #### [facility] [address] [place] [address]1225 MCV (RBC) [Entitic vol] 88.6 fL Normal 80.0-100.0 [facility] Comment on above: Performed By: #### 2 556806, 89128136, 6726034, 4781426 #### [facility] [address] [place] [address]409 Monocytes (Bld) [#/Vol] 0.7 E9/L Normal 0.2-1.0 [facility] Comment on above: Performed By: #### 2 115014, 13720387, 2081505, 2197719 #### [facility] [address] [place] [address] Neutrophils (Bld) [#/Vol] 5.0 E9/L Normal 2.0-7.5 [facility] Comment on above: Performed By: #### 2 330616, 11233633, 6432455, 3001582 #### [facility] [address] [place] [address]3070 Neutrophils/100 WBC (Bld) 66.1 % Normal 36.0-75.0 [facility] Comment on above: Performed By: #### 2 998482, 37634814, 9980878, 9782263 #### [facility] [address] [place] [address] Platelet mean volume (Bld) [Entitic vol] 9.1 fL Normal 6.4-10.8 [facility] Comment on above: Performed By: #### 2 668768, 86228157, 7093010, 3467058 #### [facility] [address] [place] [address] Platelets (Bld) [#/Vol] 216.0 E9/L Normal 150.0-500.0 [facility] Comment on above: Performed By: #### 2 472563, 38826613, 5353871, 0223212 #### [facility] [address] [place] [address] 51067 RBC (Bld) [#/Vol] 4.5 E12/L Normal 4.3-5.9 [facility] Comment on above: Performed By: #### 2 168391, 28528584, 0098874, 0047916 #### [facility] [address] [place] [address] WBC corrected for nucl RBC Auto (Bld) [#/Vol] 7.5 E9/L Normal 4.0-11.0 [facility] Comment on above: Performed By: #### 2 670332, 13963559, 7873968, 1848926 #### [facility] [address] [place] [address] CHEMISTRYOrdered By: SYSTEM SYSTEM on 10-21-2023 Albumin [...] 10-21-2023 Albumin [Mass/Vol] 4.3 g/dL Normal 3.3-5.0 [facility] Comment on above: Performed By: #### 2 053410, 70597945, 1970998, 3610122 #### [facility] [address] [place] [address] Albumin/Globulin (S) [Mass conc ratio] 1.7 Normal 1.1-2.2 [facility] Comment on above: Performed By: #### 2 089319, 27590753, 7532899, 3864144 #### [facility] [address] [place] [address] ALP [Catalytic activity/Vol] 66 Int._Unit/L Normal 21-98 [facility] Comment on above: Performed By: #### 2 010389, 05211662, 5012372, 7448795 #### [facility] [address] [place] [address] ALT No additional P-5'-P [Catalytic activity/Vol] 17 Int._Unit/L Normal 6-46 [facility] Comment on above: Performed By: #### 2 533989, 77955426, 7024981, 9186195 #### [facility] [address] [place] [address] Anion gap [Moles/Vol] 13 mmol/L Normal 6-16 [facility] Comment on above: Performed By: #### 2 734232, 05574865, 9189126, 4357147 #### [facility] [address] [place] [address] AST [Catalytic activity/Vol] 17 Int._Unit/L Normal 5-43 [facility] Comment on above: Performed By: #### 2 001600, 43563112, 3411224, 1340543 #### [facility] [address] [place] [address] Bilirubin [Mass/Vol] 0.9 mg/dL Normal 0.0-1.1 [facility] Comment on above: Performed By: #### 2 305321, 39916139, 1255205, 7820145 #### [facility] [address] [place] [address] Calcium [Mass/Vol] 8.7 mg/dL Low 8.9-11.1 [facility] Comment on above: Performed By: #### 2 493729, 46063306, 4492069, 1636538 #### [facility] [address] [place] [address] Chloride [Moles/Vol] 104 mmol/L Normal 101-111 [facility] Comment on above: Performed By: #### 2 310312, 37577616, 9596019, 1819718 #### [facility] [address] [place] [address] CO2 [Moles/Vol] 27 mmol/L Normal 21-31 [facility] Comment on above: Performed By: #### 2 373340, 76811713, 4221250, 5564508 #### [facility] [address] [place] [address] Creatinine [Mass/Vol] 0.6 mg/dL Normal 0.5-1.3 [facility] Comment on above: Performed By: #### 2 150297, 87440600, 0703931, 3120962 #### [facility] [address] [place] [address] Globulin (S) [Mass/Vol] 2.6 g/dL Normal 1.4-4.0 [facility] Comment on above: Performed By: #### 2 916862, 59900389, 9404548, 2579292 #### [facility] [address] [place] [address] Glucose [Mass/Vol] 94 mg/dL Normal 55-199 [facility] Comment on above: Performed By: #### 2 135389, 22598866, 9143405, 3290888 #### [facility] [address] [place] [address] Potassium [Moles/Vol] 3.4 mmol/L Low 3.5-5.3 [facility] Comment on above: Performed By: #### 2 487795, 93901160, 3949181, 2819013 #### [facility] [address] [place] [address] Protein [Mass/Vol] 6.9 g/dL Normal 6.0-7.8 [facility] Comment on above: Performed By: #### 2 968238, 00138109, 8893793, 2681606 #### [facility] [address] [place] [address] Sodium [Moles/Vol] 141 mmol/L Normal 135-145 [facility] Comment on above: Performed By: #### 2 576472, 79614227, 3155896, 4101480 #### [facility] [address] [place] [address] Urea nitrogen [Mass/Vol] 9 mg/dL Normal 5-21 [facility] Comment on above: Performed By: #### 2 745835, 55794309, 8558518, 2836598 #### [facility] [address] [place] [address] Urea nitrogen/Creatinine [Mass ratio] 15 No Units Normal 10-20 [facility] Comment on above: Performed By: #### 2 656962, 88848781, 5708217, 2661192 #### [facility] [address] [place] [address] Consent for Treatmenton 10-06 Consent for Treatment [id number] 0TIFF Normal [facility] HEMATOLOGYOrdered By: SYSTEM SYSTEM on 10-21-2023 Basophils/100 [...] Cholesterol [Mass/Vol] 172 mg/dL Normal 120-200 [facility] Comment on above: Performed By: #### 2 755112, 63421967, 8613513, 2104332 #### [facility] [address] [place] [address] Cholesterol in HDL [Mass/Vol] 32 mg/dL Invalid Interpretation Code [facility] Comment on above: Result Comment: '>= 60 LOW RISK' '<= 40 HIGH RISK' Performed By: #### 2 568611, 43798047, 2383907, 9158950 #### [facility] [facility] [address] [place] [address] Cholesterol in LDL [Mass/Vol] 107 mg/dL Normal <=129 [facility] Comment on above: Performed By: #### 2 [id number], [id number], [id number], [id number] #### [facility] [address] [place] [address] Cholesterol in VLDL [Mass/Vol] 38 mg/dL Normal 7-40 [facility] Comment on above: Performed By: #### 2 [id number], [id number], [id number], [id number] #### [facility] [address] [place] [address] Triglyceride [Mass/Vol] 192 mg/dL High <=149 [facility] Comment on above: Performed By: #### 2 [id number], [id number], [id number], [id number] #### [facility] [address] [place] [address] Physician Orderon 10-21-2023 Physician Order [id number]. [id number] Normal [facility] eGFRon 10-21-2023 eGFR 105 mL/min/1.73 m2 Normal >=59 [facility] Comment on above: Order Comment: Order added by Discern Expert. Performed By: #### 2 [id number], [id number], [id number], [id number] #### [facility] [address] [place] [address] CHEMISTRYOrdered By: SYSTEM SYSTEM on 09-29-2022 Anion gap [Moles/Vol] 11 mmol/L Normal 6 - 16 mEq/L [facility] Calcium [Mass/Vol] 8.9 mg/dL Normal 8.9 - 11. 1 mg/dL [facility] Chloride [Moles/Vol] 101 mmol/L Normal 101 - 1 11 mmol/L [facility] Creatinine [Mass/Vol] 0.7 mg/dL Normal 0.5 - 1.3 mg/dL [facility] Remisol GFR/1.73 sq M.predicted among blacks MDRD (S/P/Bld) [Vol rate/Area] mL/min/1.73 m2 Normal >=59mL/min/ 1.73 m2 [facility] Chem S GFR/1.73 sq M.predicted among non-blacks MDRD (S/P/Bld) [Vol rate/Area] mL/min/1.73 m2 Normal >=59mL/min/ 1.73 m2 [facility] Chem S Glucose [Mass/Vol] 107 mg/dL Normal 55 - 199 mg/dL [facility] Remisol Potassium [Moles/Vol] 3.8 mmol/L Normal 3.5 - 5.3 mmol/L [facility] Remisol Sodium [Moles/Vol] 136 mmol/L Normal 135 - 145 mmol/L [facility]isol Urea nitrogen [Mass/Vol] 17 mg/dL Normal 5 - 21 mg/dL [facility] Remisol Urea nitrogen/Creatinine [Mass ratio] 24 mg/mg High 10 - 20 [facility] Laboratory - Chemistry and C hemistry - challengeOrdered By: SYSTEM SYSTEM on 09-29-2022 CO2 [Moles/Vol] 28 mmol/L Normal 21 - 31 mmol/L [facility]isol Laboratory - Hematology and Cell countsOrdered By: Leonid Leiva on 09-29-2022 HbA1c (Bld) [Mass fraction] 5.8 % Normal <=5.9% [facility] ChemAutoSS No Panel Informationon 09-29 11 {mEq/L} Normal 6-16 -[facility] k 600 DO Work Phone: 101 mmol/L Normal 101-111 [facility] 600 DO Work Phone: [phone] 3.8 mmol/L Normal 3.5-5.3 [facility] 600 DO Work Phone: [phone] 136 mmol/L Normal 135-145 [facility] DO Work Phone: [phone] 8.9 mg/dL Normal 8.9-11.1 [facility] 600 DO Work Phone: [phone] 24 {No_Units} above high threshold 10-20 [facility] DO Work Phone: [phone] 0.7 mg/dL Normal 0.5-1.3 [facility] h[facility] XOXO Kitchen DO Work Phone: 17 mg/dL Normal 5-21 [facility] Work Phone: 107 mg/dL Normal 55-199 [facility] DO Work Phone: [phone] Comment on above: If this glucose resu lt represents a fasting glucose, interpretation should refer to the following reference range: 55-99 mg/dL >60 Normal >=59 [facility] DO Work Phone: Comment on above: eGFR is race adjuste d. AA=. Chronic kidney disea se could be indicated at eGFR's of less than 60 mL/min/1.73m2. Kidney failure is indicated at less than 15 mL/min/1.73m2. Falls Screening (Age 18+)on 09-28-2022 Fall risk assessment a) No falls within the last year [facility] DO Work Phone: [phone] Office Visit (Cardiology)on 09-28-2022 Follow-up visit [...] DAILY. Multi-Vitamin Oral TabletTAKE 1 TABLET DAILY. [place]-3 [place] DIRECTED. PARoxetine HCl - 20 MG [...] Signs Patient: PHU LOPEZ; : 1955; Recorded: [id number] 12:04PMRecorded: 28Sep2022 11:58AMRecorded: 28Sep2022 11:57AM [id number], LUE, Ufecywz246, RUE, Sitting Ujvrebdaa6857, LUE, Zykrcys16, RUE, Sitting Heart Rate80, R Radial Height5 ft 10 in Johfaa492 lb BMI Nnoaglvedr02.89 kg/m2 BSA Calculated2.43 Falls Screening (Age 18+)a) No falls within the last year [facility] Office Visit (Cardiology)on 09-10-2022 Follow-up visit Diagnoses/Problems [...] a smoker Tobacco Use Screening; Status:Complete; Done: [id number] Patient Instructions Please bring all medicines, vitamins, [...] 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 He reports no symptoms of dyspnea or [...] has been very compliant Delores Ac MD, [facility] Surgical History Problems History of [...] DAILY. Multi-Vitamin Oral TabletTAKE 1 TABLET DAILY. [place]-3 [place] DIRECTED. PARoxetine HCl - 20 MG [...] Recorded: 10Sep2022 10:02AM Heart Rate88, L Radial Kfqjiojt945, RUE, Sitting Banoyvvlh40, RUE, Sitting Height5 ft 10 in Ieelvs612 lb BMI Qsdifxguot43.32 kg/m2 BSA Calculated2.44 Tobacco Useb) No PHQ-2 #1. Over the last 2 weeks have you felt down, depressed or hopeless? (If yes, answer PHQ-9 below)No PHQ-2 #2. Over the last 2 weeks have you felt little i (more content not included)... Normal [facility] Tobacco Screening.on 023 Adult depression screening assessment No [facility] [employer] DO Work Phone: Fall risk assessment a) No falls within the last year [facility] [employer] DO Work Phone: Tobacco use status [facility] b) No M [facility] [employer] DO Work Phone: Chay 04-27-2022 L -- ---- Specimen: [id number] Received: 04/27/22 Status: HALLIE Solitario Num: [id number] Spec Type: Surgical Subm Dr: Luiz Morrison MD Tissues: A Prostate - Tur (PROSTATE TURP) Procedures: HE Stain/8, Gross/Micro L4 ---- Age/ Patient Sex Location Account Attending Physician ---- Phu Lopez 67/M [place] [id number] Luiz Morrison MD ---- SPEC NUM: [id number] RECD: 04/27/22 STATUS: HALLIE MADDISON NUM: [id number] CHAIM: 04/27/22-3 [facility] DR: Luiz Morrison MD ENTERED: 04/27/22 [facility] DR: SPEC TYPE: Surgical DEPT: S ORDERED: HE Stain/8, Gross/Micro L4 ORDERED: HE Stain/8, Gross/Micro L4 Supplemental Report Addendum 1 Entered: 05/03/22-1425 PIN cocktail immunohistochemical study has been performed on block A1. No definite evidence of malignancy identified on the area of concern. [id number] Addendum Signed (signature on file) Landon Perez MD 05/03/226 ---- Pathological Diagnosis Prostate, transurethral resection: Prostate tissue with glandular and stromal hyperplasia, chronic inflammation, and prominent cautery effect. 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 See Note. Reactive urothelial mucosa with squamous metaplasia. Note: PIN immunostain pending for evaluation of possible atypical small acinar proliferation, the result will follow supplement report. ---- Specimen: [id number] Received: 04/27/22-120 Status: HALLIE Solitario Num: [id number] Spec Type: Surgical Subm Dr: Luiz Morrison MD Tissues: A Prostate - Tur (PROSTATE TURP) Procedures: HE Stain/8, Gross/Micro L4 ---- Patient: Phu Lopez [id number] (Continued) ---- Specimen: [id number] Received: 04/27/22 (Continued) Signed (signature on file) Casa Desai MD (Michelle) 04/30/22 1044 ---- Specimen: [id number] Received: 04/27/22 Status: HALLIE Solitario Num: [id number] Spec Type: Surgical Subm Dr: Luiz Morrison MD Tissues: A Prostate - Tur (PROSTATE TURP) Procedures: LISSETH Tavares/8, Gross/Micro L4 ---- Patient: Phu Lopez [id number] (Continued) ---- Specimen: [id number] Received: 04/27/22 (Continued) Clinical Information BPH with obstruction Gross Description Received in formalin labeled with the patient's name, number and prostate is a 12 g, 6.5 x 5.0 x 2.5 cm aggregate of mooney-campuzano rubbery tissue fragments.. Entirely submitted in nine cassettes labeled A1-A9. Microscopic Description Nine glass slides with H E stained material have been examined. Pathologist interpretation was performed at [facility]. The microscopic findings support the above pathologic diagnosis. CPT Codes 07013 ---- ---- Specimen: [id number] Received: 04/27/22 Status: HALLIE Solitario Num: [id number] Spec Type: Surgical Subm Dr: Luiz Morrison MD Tissues: A Prostate - Tur (PROSTATE TURP) Procedures: HE Stain/8, Gross/Micro L4 ---- Patient: Phu Lopez [id number] (Continued) ---- Signed (signature on file) Casa Desai MD (Michelle) 04/30/22 1044 Normal [facility] COVID[facility]19 [facility] SARS-CoV-2 (COVID-19) RNA MARY+probe Ql (Unsp spec) Negative Normal Negative [facility] Comment on above: Order Comment: Healt hcare Worker?: N Result Comment: Testing for SARS-CoV-2 by RT-PCR This test was developed and its performance characteristics determined by [employer] ([employer]) and validated at the [facility]. This test has not been FDA cleared [...] is terminated or revoked sooner. PERFORMED BY: [place] [address] PATHOLOGIST MORNING SHOW HOST TOI BOWER M.D. Performed By: #### C OVID 19 [facility] #### [address] COVID-19 Positive/NegativeOr dered By: Luiz Morrison on 04-23-2022 SARS-CoV-2 (COVID-19) N gene MARY+probe Ql (Resp) Negative Negative [facility] Comment on above: Testing for SARS-CoV -2 by RT-PCR This test was developed and its performance characteristics determined by [employer] ([employer]) and validated at the [facility]. This test has not been FDA cleared [...] (PPP) [Time] 29.4 s 25.1-36.5 [facility] Basic Metabolic Panelon Anion gap [Moles/Vol] 13.0 mmol/L Normal 6.0-15.0 [facility] Comment on above: Performed By: #### P T, PTT, CBC, BMP #### [address] Calcium [Mass/Vol] 9.4 mg/dL Normal 8.2-10.2 [facility] Comment on above: Result Comment: PERF ORMED BY: [address] [place] [address] PATHOLOGIST MORNING SHOW HOST TOI BOWER M.D. Performed By: #### P T, PTT, CBC, BMP #### [facility] [address] [place] [address] [place] Chloride [Moles/Vol] 100 mmol/L Normal 95-114 [facility] Comment on above: Performed By: #### P T, PTT, CBC, BMP #### [facility] [address] [place] [address] [place] CO2 [Moles/Vol] 26.6 mmol/L Normal 22.0-30.0 [facility] Comment on above: Performed By: #### P T, PTT, CBC, BMP #### [facility] [address] Creatinine [Mass/Vol] 0.60 mg/dL Low 0.64-1.27 [facility] Comment on above: Performed By: #### P T, PTT, CBC, BMP #### [address] Estimated GFR ( Pilar > 60 [facility] Comment on above: Result Comment: GFR estimated reference range: According to KDOQI guidelines, <60 ml/min/1.73m2 is sufficient to diagnose a patient with chronic kidney disease. Performed By: #### P T, PTT, CBC, BMP #### [address] Estimated GFR (Non- Am > 60 [facility] Comment on above: Performed By: #### P T, PTT, CBC, BMP #### [place] [address] [place] Glucose [Mass/Vol] 112 mg/dL High 70-100 [facility] Comment on above: Result Comment: [place] om Glucose Reference Range is dependent on time and content of last meal. Glucose of more than 200 mg/dL in a nonstressed, ambulatory subject supports the diagnosis of Diabetes Mellitus. ADA recommended reference range Performed By: #### P T, PTT, CBC, BMP #### [place] [address] [place] Potassium [Moles/Vol] 3.6 mmol/L Normal 3.5-5.1 [facility] Comment on above: Performed By: #### P T, PTT, CBC, BMP #### [place] [address] [place] Sodium [Moles/Vol] 136 mmol/L Normal 136-146 [facility] Comment on above: Performed By: #### P T, PTT, CBC, BMP #### [place] [address] [place] Urea nitrogen [Mass/Vol] 7 mg/dL Low 9-23 [facility] Comment on above: Performed By: #### P T, PTT, CBC, BMP #### [facility] [address] [place] [address] Basophils Auto (Bld) [#/Vol] Ordered By: Luiz Morrison on 04-13-2022 Basophils (Bld) [#/Vol] 0.0 10*3/uL 0.0-0.2 [facility] Basophils/100 WBC Auto (Bld) Ordered By: Luiz Morrison on 04-13-2022 Basophils/100 WBC (Bld) 0.5 % . F [facility] Blood hemoglobin measurement (mass/volume)Ordered By: Luiz Morrison on 04-13-2022 Hemoglobin (Bld) [Mass/Vol] 14.4 g/dL 13.0-17.0 [facility] Blood leukocytes automated c ount (number/volume)Ordered By: Luiz Morrison on 04-13-2022 WBC (Bld) [#/Vol] 7.0 10*3/uL 4.5-11.0 [facility] Complete Blood Count Auto Di ffon 04-13-2022 Basophils (Bld) [#/Vol] 0.0 10*3/uL Normal 0.0-0.2 [facility] Comment on above: Result Comment: PERF ORMED BY: [place] [address] PATHOLOGIST MORNING SHOW HOST TOI BOWER M.D. Performed By: #### P T, PTT, CBC, BMP #### [facility] [address] [place] [address] Basophils/100 WBC (Bld) 0.5 % Normal . F [facility] Comment on above: Performed By: #### P T, PTT, CBC, BMP #### [facility] [address] [place] [address] [place] Eosinophils (Bld) [#/Vol] 0.2 10*3/uL Normal 0.0-0.45 [facility] Comment on above: Performed By: #### P T, PTT, CBC, BMP #### [facility] [address] Eosinophils/100 WBC (Bld) 2.4 % Normal . [facility] Comment on above: Performed By: #### P T, PTT, CBC, BMP #### [facility] [address] Erythrocyte distribution width (RBC) [Ratio] 13.3 % Normal 12.0-14.8 [facility] Comment on above: Performed By: #### P T, PTT, CBC, BMP #### [address] Hematocrit (Bld) [Volume fraction] 42.6 % Normal 38.8-50.0 [facility] Comment on above: Performed By: #### P T, PTT, CBC, BMP #### [address] Hemoglobin (Bld) [Mass/Vol] 14.4 g/dL Normal 13.0-17.0 [facility] Comment on above: Performed By: #### P T, PTT, CBC, BMP #### [address] Lymphocytes (Bld) [#/Vol] 1.2 10*3/uL Normal 1.00-4.8 [facility] Comment on above: Performed By: #### P T, PTT, CBC, BMP #### [address] Lymphocytes/100 WBC (Bld) 17.7 % Normal . [facility] Comment on above: Performed By: #### P T, PTT, CBC, BMP #### [address] MCH (RBC) [Entitic mass] 30.6 pg Normal 27.5-35.2 [facility] Comment on above: Performed By: #### P T, PTT, CBC, BMP #### [address] MCV (RBC) [Entitic vol] 90.7 fL Normal 83.5-101 F [facility] Comment on above: Performed By: #### P T, PTT, CBC, BMP #### [facility] [address] Mean Corpuscular HGB Conc 33.8 g/dL Normal 32.5-35.6 [facility] Comment on above: Performed By: #### P T, PTT, CBC, BMP #### [facility] [address] Monocytes (Bld) [#/Vol] 0.7 10*3/uL Normal 0.0-0.8 [facility] Comment on above: Performed By: #### P T, PTT, CBC, BMP #### [address] Monocytes/100 WBC (Bld) 9.7 % Normal . F [facility] Comment on above: Performed By: #### P T, PTT, CBC, BMP #### [address] Neutrophils (Bld) [#/Vol] 4.9 10*3/uL Normal 1.8-7.7 [facility] Comment on above: Performed By: #### P T, PTT, CBC, BMP #### [address] Neutrophils/100 WBC (Bld) 69.7 % Normal . [facility] Comment on above: Performed By: #### P T, PTT, CBC, BMP #### [place] [address] [place] Nucleated RBC/100 WBC (Bld) [Ratio] 0.0 % Normal 0-0.5 [facility] Comment on above: Performed By: #### P T, PTT, CBC, BMP #### [address] Platelet mean volume (Bld) [Entitic vol] 9.2 fL Normal 6.6-10.1 [facility] Comment on above: Performed By: #### P T, PTT, CBC, BMP #### [place] [address] [place] Platelets (Bld) [#/Vol] 265 10*3/uL Normal 150-450 [facility] Comment on above: Performed By: #### P T, PTT, CBC, BMP #### [facility] [address] RBC (Bld) [#/Vol] 4.70 10*6/uL Normal 3.90-5.60 [facility] Comment on above: Performed By: #### P T, PTT, CBC, BMP #### [facility] [address] WBC (Bld) [#/Vol] 7.0 10*3/uL Normal 4.5-11.0 [facility] Comment on above: Performed By: #### P T, PTT, CBC, BMP #### [address] Creatinine and Glomerular fi ltration rate.predicted panel (S/P/Bld)Ordered By: Luiz Morrison on 04-13-2022 Creatinine [Mass/Vol] 0.60 mg/dL 0.64-1.27 [facility] ECG 12 lead ECGon 04-13-2022 ECG 12 lead ECG [facility] Main [place] [address] [place] [address] Electrocardiograph Report Signed Patient: Phu Lopez MR#: [id number] : 1955 Acct:[id number] Age/Sex: 67 / M ADM Date: 04/13/22 Loc: Room: Type: [facility] Attending Dr: Luiz Morrison MD Ordering [...] Signed By Roxie Gusman MD 1431 Normal [facility] Eosinophils Auto (Bld) [#/Vo l]Ordered By: Luiz Morrison on 04-13-2022 Eosinophils (Bld) [#/Vol] 0.2 10*3/uL 0.0-0.45 [facility] Eosinophils/100 WBC Auto (Bl d)Ordered By: Luiz Morrison on 04-13-2022 Eosinophils/100 WBC (Bld) 2.4 % . [facility] Erythrocyte distribution wid th Auto (RBC) [Ratio]Ordered By: Luiz Morrison on 04-13-2022 Erythrocyte distribution width (RBC) [Ratio] 13.3 % 12.0-14.8 [facility] Estimated glomerular filtrat ion rate (GFR) non- AmericanOrdered By: Luiz Morrison on 04-13-2022 GFR/1.73 sq M.predicted among non-blacks MDRD (S/P/Bld) [Vol rate/Area] > 60 mL/Min [facility] Hematocrit Auto (Bld) [Volum e fraction]Ordered By: Luiz Morrison on 04-13-2022 Hematocrit (Bld) [Volume fraction] 42.6 % 38.8-50.0 [facility] Laboratory - CoagulationOrde red By: Luiz Morrison on 04-13-2022 PT Coag (PPP) [Time] 10.8 s 9.0-12.9 [facility] Laboratory - Hematology and Cell countsOrdered By: Luiz Morrison on 04-13-2022 Nucleated RBC/100 WBC (Bld) [Ratio] 0.0 % 0-0.5 [facility] Lymphocytes Auto (Bld) [#/Vo l]Ordered By: Luiz Morrison on 04-13-2022 Lymphocytes (Bld) [#/Vol] 1.2 10*3/uL 1.00-4.8 [facility] Lymphocytes/100 WBC Auto (Bl d)Ordered By: Luiz Morrison on 04-13-2022 Lymphocytes/100 WBC (Bld) 17.7 % . [facility] MCH Auto (RBC) [Entitic mass ]Ordered By: Luiz Morrison on 04-13-2022 MCH (RBC) [Entitic mass] 30.6 pg 27.5-35.2 [facility] MCHC Auto (RBC) [Mass/Vol]Or dered By: Luiz Morrison on 04-13-2022 MCHC (RBC) [Mass/Vol] 33.8 g/dL 32.5-35.6 [facility] MCV Auto (RBC) [Entitic vol] Ordered By: Luiz Morrison on 04-13-2022 MCV (RBC) [Entitic vol] 90.7 fL 83.5-101 F [facility] Monocytes Auto (Bld) [#/Vol] Ordered By: Luiz Morrison on 04-13-2022 Monocytes (Bld) [#/Vol] 0.7 10*3/uL 0.0-0.8 [facility] Monocytes/100 WBC Auto (Bld) Ordered By: Luiz Morrison on 04-13-2022 Monocytes/100 WBC (Bld) 9.7 % . F [facility] Neutrophils Auto (Bld) [#/Vo l]Ordered By: Luiz Morrison on 04-13-2022 Neutrophils (Bld) [#/Vol] 4.9 10*3/uL 1.8-7.7 [facility] Neutrophils/100 WBC Auto (Bl d)Ordered By: Luiz Morrison on 04-13-2022 Neutrophils/100 WBC (Bld) 69.7 % . [facility] No Panel InformationOrdered By: Luiz Morrison on 04-13-2022 Estimated GFR () > 60 mL/Min [facility] Comment on above: GFR estimated refere nce range: According to KDOQI guidelines, <60 ml/min/1.73m2 is sufficient to diagnose a patient with chronic kidney disease. Pharmacy Creatinine Clearance (Chem N/A [facility] Partial Thromboplastin Timeo n 04-13-2022 aPTT Coag (Bld) [Time] 29.4 s Normal 25.1-36.5 [facility] Comment on above: Result Comment: PERF ORMED BY: [facility] [address] [place] [address] PATHOLOGIST MORNING SHOW HOST TOI BOWER M.D. Performed By: #### P T, PTT, CBC, BMP #### [facility] [address] [place] [address] Platelet mean volume Auto (B ld) [Entitic vol]Ordered By: Luiz Morrison on 04-13-2022 Platelet mean volume (Bld) [Entitic vol] 9.2 fL 6.6-10.1 [facility] Platelet poor plasma interna tional normalized ratio (INR) by coagulation assay (relatOrdered By: Luiz Morrison on 04-13-2022 INR Coag (PPP) [Relative time] 1.0 {INR} [facility] Comment on above: INR Therapeutic Rang e [...] 04-13-2022 Platelets (Bld) [#/Vol] 265 10*3/uL 150-450 [facility] Prothrombin Time INRon 04-13 INR Coag (PPP) [Relative time] 1.0 {INR} Normal [facility] Comment on above: Result Comment: INR Therapeutic [...] #### P T, PTT, CBC, BMP #### [facility] [address] PT Coag (PPP) [Time] 10.8 s Normal 9.0-12.9 [facility] Comment on above: Performed By: #### P T, PTT, CBC, BMP #### [facility] [address] RBC Auto (Bld) [#/Vol]Ordere d By: Luiz Morrison on 04-13-2022 RBC (Bld) [#/Vol] 4.70 10*6/uL 3.90-5.60 [facility] Serum or plasma anion gap de terminationOrdered By: Luiz Morrison on 04-13-2022 Anion gap [Moles/Vol] 13.0 mmol/L 6.0-15.0 [facility] Serum or plasma calcium anne urement (mass/volume)Ordered By: Luiz Morrison on 04-13-2022 Calcium [Mass/Vol] 9.4 mg/dL 8.2-10.2 [facility] Serum or plasma chloride neo surement (moles/volume)Ordered By: Luiz Morrison on 04-13-2022 Chloride [Moles/Vol] 100 mmol/L 95-114 [facility] Serum or plasma glucose anne urement (mass/volume)Ordered By: Luiz Morrison on 04-13-2022 Glucose [Mass/Vol] 112 mg/dL 70-100 [facility] Comment on above: ADA recommended refe rence range Random Glucose Reference Range is dependent on time and content of last meal. Glucose of more than 200 mg/dL in a nonstressed, ambulatory subject supports the diagnosis of Diabetes Mellitus. Serum or plasma potassium me asurement (moles/volume)Ordered By: Luiz Morrison on 04-13-2022 Potassium [Moles/Vol] 3.6 mmol/L 3.5-5.1 [facility] Serum or plasma sodium measu rement (moles/volume)Ordered By: Luiz Morrison on 04-13-2022 Sodium [Moles/Vol] 136 mmol/L 136-146 [facility] Serum or plasma total carbon dioxide measurement (moles/volume)Ordered By: Luiz Morrison on 04-13-2022 CO2 [Moles/Vol] 26.6 mmol/L 22.0-30.0 [facility] Serum or plasma urea nitroge n measurement (mass/volume)Ordered By: Luiz Morrison on 04-13-2022 Urea nitrogen [Mass/Vol] 7 mg/dL 04-30 [facility] CHEMISTRYOrdered By: Gabriel rendon on 04-01-2022 HbA1c (Bld) [Mass fraction] 5.3 % Normal <=5.9% [facility] [employer] Creatinine (Bld) [Mass/Vol]O rdered By: Luiz Morrison on 01-21-2022 Creatinine [Mass/Vol] 0.8 mg/dL 0.6-1.3 [facility] Comment on above: ER/ESD physician is notified/shown all ISTAT results. Critical values may be confirmed by laboratory testing if deemed necessary by ER attending doctor. No Panel InformationOrdered By: Luiz Morrison on 01-21-2022 POC Estimated GFR > 60 [facility] Comment on above: GFR estimated refere nce range: According to KDOQI guidelines, <60 ml/min/1.73m2 is sufficient to diagnose a patient with chronic kidney disease. POC Estimated GFR Non- Amer > 60 [facility] CHEMISTRYOrdered By: SYSTEM SYSTEM on 12-22-2021 Free [...] 101 - 1 11 mmol/L FT Remisol CO2 [Moles/Vol] 27 mmol/L Normal 21 - 31 mmol/L FT Remisol Creatinine [Mass/Vol] 0.7 mg/dL Normal 0.5 - 1.3 mg/dL FT Remisol GFR/1.73 sq M.predicted among blacks MDRD (S/P/Bld) [Vol rate/Area] mL/min/1.73 m2 Normal >=59mL/min/ 1.73 m2 [facility] Chem S GFR/1.73 sq M.predicted among non-blacks MDRD (S/P/Bld) [Vol rate/Area] mL/min/1.73 m2 Normal >=59mL/min/ 1.73 m2 [facility] Chem S Globulin (S) [Mass/Vol] 3.8 g/dL [...] 12 mg/dL Normal 5 - 21 mg/dL FT Remisol Urea nitrogen/Creatinine [Mass ratio] 17 mg/mg Normal 10 - 20 FT Remisol HEMATOLOGYOrdered By: Stephanie jamison on 12-10-2021 Erythrocyte distribution width (RBC) [Ratio] 13.4 % Normal 10.9 - 14.2 % [facility] HemeAutoSS Hematocrit (Bld) [Volume fraction] 39.2 % [...] 8.4 E9/L Normal 4.0 - 11.0 E9/L [facility] HemeAutoSS CHEMISTRYOrdered By: SYSTEM SYSTEM on 11-19-2021 Creatinine [Mass/Vol] 0.7 mg/dL Normal 0.5 - 1.3 mg/dL [facility] Remisol GFR/1.73 sq M.predicted among blacks MDRD (S/P/Bld) [Vol rate/Area] mL/min/1.73 m2 Normal >=59mL/min/ 1.73 m2 [facility] Chem S GFR/1.73 sq M.predicted among non-blacks MDRD (S/P/Bld) [Vol rate/Area] mL/min/1.73 m2 Normal >=59mL/min/ 1.73 m2 [facility] Chem S Tobacco Screening.on 022 Fall risk assessment a) No falls within the last year [facility] Work Phone: Tobacco use status CPHS b) No [facility] Work Phone: CORONAVIRUS 2019 BY PCRon SARS-CoV-2 (COVID-19) RNA MARY+probe Ql (Unsp spec) Not detected Normal Not Detected [facility] Comment on above: Result Comment: . This [...] this test method. Fact sheet for providers: https://www.fda.gov/media/123238/download Fact sheet for patients: https://www.fda.gov/media/680921/download This test has received FDA Emergency Use Authorization [EUA] and has been verified by [facility] ([facility]). This test is only authorized for the duration of time that circumstances exist to justify the authorization of the emergency use of in vitro diagnostic tests for the detection of SARS-CoV-2 virus and/or diagnosis of COVID-19 infection under section 564(b)(1) of the Act, 21 U.S.C. 360bbb-3(b)(1), unless the authorization is terminated or revoked sooner. [facility] is certified under CLIA-88 as qualified to perform high complexity testing. Testing is performed in the [facility] laboratories located at [address] [place] [address]. Performed By: #### C OV19 #### [address] [place] [address] Covid 19 Resultson SARS-CoV-2 (COVID-19) RNA MARY+probe [...] You may also be contacted by the [facility] to see if any of your [...] or Naproxen (Aleve) can also be used. Ejpg-ndp-hvlyfdv cough and cold medicines can be used according to the instructions on the package. Some cwny-yrw-jbjvvjn medicines also contain acetaminophen. Make sure you [...] water are not available, use alcohol-based hand banding machine operator. Avoid touching your eyes, nose, and mouth [...] for 24 matias (more content not included)... [facility] CORONAVIRUS 2019 BY PCRon DATE OF SYMPTOM ONSET [YYYYMMDD]? [id number] [facility] Comment on above: Performed By: #### C OV19 #### [facility] [address] [place] [address] Lab Specimen Source Nasal, Nasopharyngeal [facility] Comment on above: Performed By: #### C OV19 #### [facility] [address] [address] Provider Note - ED v2on Provider Note [...] SIGNS: T PRBP SpO2O2(LPM) %FiO2 Method 10-Mar-2021 13:09:[id number] 95 PHYSICAL EXAM CONSTITUTIONAL: Appearance: well appearing [...] instruction (more content not included)... Normal [facility] CORONAVIRUS 2019 BY PCRon SARS-CoV-2 (COVID-19) RNA MARY+probe Ql (Unsp spec) Not detected Normal Not Detected [facility] Comment on above: Result Comment: . This [...] patient management decisions. Fact sheet for providers: https://www.fda.gov/media/460441/download Fact sheet for patients: https://www.fda.gov/media/286946/download This test has received FDA Emergency Use Authorization (EUA) and has been verified by [facility] ([facility]). This test is only authorized for the duration of time that circumstances exist to justify the authorization of the emergency use of in vitro diagnostic tests for the detection of SARS-CoV-2 virus and/or diagnosis of COVID-19 infection under section 564(b)(1) of the Act, 21 U.S.C. 360bbb-3(b)(1), unless the authorization is terminated or revoked sooner. [facility] is certified under CLIA-88 as qualified to perform high complexity testing. Testing is performed in the [facility] laboratories located at [address] [place] [address]. Performed By: #### C OV19 #### [place] [address] Covid 19 Resultson 1 SARS-CoV-2 (COVID-19) RNA [...] remain on home isolation, in accordance with [facility] guidelines. You may also be contacted by the [facility] to see if any of your [...] or Naproxen (Aleve) can also be used. Jhim-ziz-sxdufbp cough and cold medicines can be used according to the instructions on the package. Some xsqt-nmw-ttxnxcm medicines also contain acetaminophen. Make sure you [...] water are not available, use alcohol-based hand banding machine operator. Avoid touching your eyes, nose, and mouth [...] (more content not included)... [facility] CORONAVIRUS 2019 BY PCRon DATE OF SYMPTOM ONSET [YYYYMMDD]? [id number] [facility] Comment on above: Performed By: #### C OV19 #### [facility] [address] [place] [address] Lab Specimen Source Nasal, Nasopharyngeal [facility] Comment on above: Performed By: #### C OV19 #### [facility] [address] [place] [address] Provider Note - ED v2on Provider Note [...] and symptoms. Symptoms have been refractory to mpkx-ppm-dsuhmfg medications.. Triage Information: Most recent Vital Sign [...] by Emile Michelle (PAC) [facility] Provider Note - ED v2on 06-10 Provider [...] SIGNS: T PRBP SpO2O2(LPM) %FiO2 Method 07-Jul-2020 13:05:[id number]/ [id number] 97 PHYSICAL EXAM CONSTITUTIONAL: Appearance: well [...] on exam a (more content not included)... [facility] URINE CULTURE,BACTERIALon URINE CULTURE,BACTERIAL PATIENT: JONO LOPEZ LOCATION: [facility]#: [id number] : 57 AGE: SEX: M ORDERED BY: CHRISS MARIE SOURCE: URINE COLLECTED: 07/07/20 14:07 ANTIBIOTICS AT CHAIM.: RECEIVED : 07/07/20 19:19 SITE: R E S U L T S URINE CULTURE,BACTERIAL FINAL 07/08/20 12:57 NO SIGNIFICANT GROWTH. [facility] Comment on above: Performed By: #### U [facility] #### [facility] [address] [address] OCT MACULA CIRRUS OU (BOTH E YES) [facility] Vital Signs Date Time Vital Sign Value Performing Clinician Facility 07-25-2024 08:43-0500 Body height 177.8 cm Liliana Waller MD Work Phone: [facility] 07-25-2024 08:43-0500 Body mass index (BMI) [Ratio] 43.91 kg/m2 Liliana Waller MD Work Phone: [facility] 07-25-2024 08:43-0500 Body temperature 98.4 [degF] Liliana Waller MD Work Phone: [facility] 07-25-2024 08:43-0500 Body weight 138.8 kg Liliana Waller MD Work Phone: [facility] 07-25-2024 08:43-0500 Diastolic blood pressure 80 mm[Hg] Liliana Waller MD Work Phone: [facility] 07-25-2024 08:43-0500 Heart rate 70 /min Liliana Waller MD Work Phone: [facility] 07-25-2024 08:43-0500 SaO2% (BldA) [Mass fraction] 97 % Liliana Waller MD Work Phone: [facility] 07-25-2024 08:43-0500 Systolic blood pressure 142 mm[Hg] Liliana Waller MD Work Phone: [facility] 06-20-2024 12:58-0500 Diastolic blood pressure 70 mm[Hg] Luiz MORRISON [facility] 06-20-2024 12:58-0500 Mean blood pressure 93 mm[Hg] Luiz MORRISON [facility] 06-20-2024 12:58-0500 Systolic blood pressure 138 mm[Hg] Luiz MORRISON [facility] 06-20-2024 12:51-0500 Blood Pressure Location Luiz MORRISON [facility] 06-20-2024 12:51-0500 Diastolic blood pressure 80 mm[Hg] Luiz MORRISON [facility] 06-20-2024 12:51-0500 Heart rate 78 /min Luiz MORRISON [facility] 06-20-2024 12:51-0500 Respiratory rate 16 /min Luiz MORRISON [facility] 06-20-2024 12:51-0500 Systolic blood pressure 150 mm[Hg] Luiz MORRISON [facility] 06-04-2024 07:58-0400 Body height 177.8 cm Adam Hookerclarissa DPM FACFAS Work Phone: [facility] 06-04-2024 07:58-0400 Body mass index (BMI) [Ratio] 42.62 kg/m2 Adam Jack DPM FACFAS Work Phone: [facility] 06-04-2024 07:58-0400 Body weight 134.72 kg Adam Jack DPM FACFAS Work Phone: [facility] 06-04-2024 07:58-0400 Diastolic blood pressure 71 mm[Hg] Adam Jack DPM FACFAS Work Phone: [facility] 06-04-2024 07:58-0400 Heart rate 74 /min Adam Jack DPM FACFAS Work Phone: [facility] 06-04-2024 07:58-0400 Systolic blood pressure 132 mm[Hg] Adam Jack DPM FACFAS [facility] Phone: [facility] 05-07-2024 13:42-0400 Body height 177.8 cm [facility] 05-07-2024 13:42-0400 Body mass index (BMI) [Ratio] 41.7 kg/m2 [facility] 05-07-2024 13:42-0400 Body weight 131.99 kg [facility] 05-07-2024 13:42-0400 Diastolic blood pressure 69 mm[Hg] [facility] 05-07-2024 13:42-0400 Heart rate 78 /min [facility] 05-07-2024 13:42-0400 SaO2% (BldA) [Mass fraction] 96 % [facility] 05-07-2024 13:42-0400 Systolic blood pressure 148 mm[Hg] [facility] 04-13-2024 10:38-0400 Body mass index (BMI) [Ratio] 42.07 kg/m2 Elyssa Adler MD Work Phone: [facility] 04-13-2024 10:38-0400 Body temperature 98.4 [degF] Elyssa Adler MD Work Phone: [facility] 04-13-2024 10:38-0400 Body weight 133 kg Elyssa Adler MD Work Phone: [facility] 04-13-2024 10:38-0400 Diastolic blood pressure 82 mm[Hg] Elyssa Adler MD Work Phone: [facility] 04-13-2024 10:38-0400 Heart rate 71 /min Elyssa Adler MD Work Phone: [facility] 04-13-2024 10:38-0400 SaO2% (BldA) [Mass fraction] 97 % Elyssa Adler MD Work Phone: [facility] 04-13-2024 10:38-0400 Systolic blood pressure 132 mm[Hg] Elyssa Adler MD Work Phone: [facility] 03-12-2024 13:59-0400 Body height 177.8 cm [facility] 03-12-2024 13:59-0400 Body mass index (BMI) [Ratio] 40.7 kg/m2 [facility] 03-12-2024 13:59-0400 Body weight 128.82 kg [facility] 03-12-2024 13:59-0400 Diastolic blood pressure 69 mm[Hg] [facility] 03-12-2024 13:59-0400 Heart rate 75 /min [facility] 03-12-2024 13:59-0400 SaO2% (BldA) [Mass fraction] 94 % [facility] 03-12-2024 13:59-0400 Systolic blood pressure 140 mm[Hg] [facility] 09-30-2023 08:46-0500 Body height 177.8 cm Delores Ac MD Work Phone: [facility] 09-30-2023 08:46-0500 Body mass index (BMI) [Ratio] 42.04 kg/m2 Delores Ac MD Work Phone: [facility] 09-30-2023 08:46-0500 Body weight 132.9 kg Delores Ac MD Work Phone: [facility] 09-30-2023 08:46-0500 Diastolic blood pressure 60 mm[Hg] Delores Ac MD Work Phone: [facility] 09-30-2023 08:46-0500 Heart rate 76 /min Delores Ac MD Work Phone: [facility] 09-30-2023 08:46-0500 Systolic blood pressure 138 mm[Hg] Delores Ac MD Work Phone: [phone] [place] [address] 06-15-2023 13:25-0500 Diastolic blood pressure 90 mm[Hg] Luiz MORRISON [facility] 06-15-2023 13:25-0500 Mean blood pressure 110 mm[Hg] Luiz MORRISON [facility] 06-15-2023 13:25-0500 Systolic blood pressure 150 mm[Hg] Luiz MORRISON [facility] 06-15-2023 13:20-0500 Blood Pressure Location Luiz MORRISON [facility] 06-15-2023 13:20-0500 Diastolic blood pressure 94 mm[Hg] Luiz MORRISON [facility] 06-15-2023 13:20-0500 Heart rate 83 /min Luiz MORRISON [facility] 06-15-2023 13:20-0500 Systolic blood pressure 150 mm[Hg] Luiz MORRISON [facility] 02-21-2023 13:30-0400 Body height 172.72 cm Burak Rangel Other [employer] Other 02-21-2023 13:30-0400 Body mass index (BMI) [Ratio] 44.55 kg/m2 Burak Rangel Other [employer] Other 02-21-2023 13:30-0400 Body weight 132.9 kg Burak Rangel Other [employer] Other 02-21-2023 13:30-0400 Diastolic blood pressure 71 mm[Hg] Burak Rangel Other [facility] [employer] Other 02-21-2023 13:30-0400 SaO2% (BldA) [Mass fraction] 96 % Burak Gaypoli Other [employer] [facility] [employer] Other 02-21-2023 13:30-0400 Systolic blood pressure 167 mm[Hg] Compajuan Gaypoli Other [facility] [employer] Other 11-03-2022 15:48-0400 Blood Pressure Location Luiz MORRISON [facility] 11-03-2022 15:48-0400 Diastolic blood pressure 76 mm[Hg] Luiz MORRISON [facility] 11-03-2022 15:48-0400 Heart rate 76 /min Luiz MORRISON [facility] 11-03-2022 15:48-0400 Systolic blood pressure 138 mm[Hg] Luiz MORRISON [facility] 09-28-2022 12:04-0500 Diastolic blood pressure 60 mm[Hg] Terri Allsop Work Phone: [facility] [employer] 600 DO Work Phone: 09-28-2022 12:04-0500 Systolic blood pressure 118 mm[Hg] Terri Allsop Work Phone: [facility] 600 DO Work Phone: 09-28-2022 11:58-0500 Diastolic blood pressure 42 mm[Hg] Terri Allsop Work Phone: [facility] [employer] 600 DO Work Phone: 02-21-2023 11:58-0500 Systolic blood pressure 118 mm[Hg] Terri Allsop Work Phone: [facility] 600 DO Work Phone: 09-28-2022 11:57-0500 Body height 177.8 cm Terri Allsop Work Phone: [facility] 600 DO Work Phone: 09-28-2022 11:57-0500 Body mass index (BMI) [Ratio] 40.89 kg/m2 Terri Allsop Work Phone: [facility] 600 DO Work Phone: 09-28-2022 11:57-0500 Body surface area Derived from formula 2.43 m2 Terri Allsop Work Phone: [facility] 600 DO Work Phone: 09-28-2022 11:57-0500 Body weight 129.28 kg Terri Allsop Work Phone: [facility] 600 DO Work Phone: 09-28-2022 11:57-0500 Diastolic blood pressure 44 mm[Hg] Terri Allsop Work Phone: [facility] 600 DO Work Phone: 09-28-2022 11:57-0500 Heart rate 80 /min Terri Allsop Work Phone: [facility] 600 DO Work Phone: 09-28-2022 11:57-0500 Systolic blood pressure 120 mm[Hg] Terri Allsop Work Phone: [facility] 600 DO Work Phone: 09-10-2022 10:02-0500 Body height 177.8 cm Terri Allsop Work Phone: [facility] 600 DO Work Phone: 09-10-2022 10:02-0500 Body mass index (BMI) [Ratio] 41.32 kg/m2 Terri Powellsop Work Phone: [facility] 600 DO Work Phone: 09-10-2022 10:02-0500 Body surface area Derived from formula 2.44 m2 Terri Powellsop Work Phone: [facility] 600 DO Work Phone: 09-10-2022 10:02-0500 Body weight 130.64 kg Terri Powellsop Work Phone: [facility] 600 DO Work Phone: 09-10-2022 10:02-0500 Diastolic blood pressure 70 mm[Hg] Terri Powellsop Work Phone: [facility] 600 DO Work Phone: 09-10-2022 10:02-0500 Heart rate 88 /min Terri Powellsop Work Phone: [facility] 600 DO Work Phone: 09-10-2022 10:02-0500 Systolic blood pressure 162 mm[Hg] Terri Powellsop Work Phone: [facility] 600 DO Work Phone: 06-24-2022 13:10-0500 Blood Pressure Location [facility] 06-24-2022 13:10-0500 Diastolic blood pressure 87 mm[Hg] [facility] 06-24-2022 13:10-0500 Heart rate 91 /min [facility] 06-24-2022 13:10-0500 Respiratory rate 21 /min [facility] 06-24-2022 13:10-0500 SaO2% (BldA) [Mass fraction] 97 % [facility] 06-24-2022 13:10-0500 Systolic blood pressure 152 mm[Hg] [facility] 06-24-2022 13:05-0500 Blood Pressure Location [facility] 06-24-2022 13:05-0500 Diastolic blood pressure 94 mm[Hg] [facility] 06-24-2022 13:05-0500 Heart rate 91 /min [facility] 06-24-2022 13:05-0500 Respiratory rate 24 /min [facility] 06-24-2022 13:05-0500 SaO2% (BldA) [Mass fraction] 97 % [facility] 06-24-2022 13:05-0500 Systolic blood pressure 164 mm[Hg] [facility] 06-24-2022 13:00-0500 Heart rate 92 /min [facility] 06-24-2022 13:00-0500 Respiratory rate 18 /min [facility] 06-24-2022 13:00-0500 SaO2% (BldA) [Mass fraction] 96 % [facility] 06-24-2022 13:00-0500 Systolic blood pressure 162 mm[Hg] [facility] 06-24-2022 12:40-0500 Body temperature 97.16 [degF] [facility] 06-24-2022 12:37-0500 Respiratory rate 20 /min [facility] 06-24-2022 12:30-0500 Respiratory rate 20 /min [facility] 06-24-2022 12:25-0500 Respiratory rate 20 /min [facility] 06-24-2022 11:31-0500 Body temperature 97.16 [degF] [facility] 05-12-2022 08:06-0400 Blood Pressure Location Luiz MORRISON [facility] 05-12-2022 08:06-0400 Diastolic blood pressure 80 mm[Hg] Luiz MORRISON [facility] 05-12-2022 08:06-0400 Heart rate 80 /min Luiz MORRISON [facility] 05-12-2022 08:06-0400 Respiratory rate 16 /min Luiz MORRISON [facility] 05-12-2022 08:06-0400 Systolic blood pressure 151 mm[Hg] Luiz MORRISON [facility] 04-28-2022 11:54-0400 Body temperature 99.2 [degF] MD Terri Santos Work Phone: [facility] 04-28-2022 11:54-0400 Diastolic blood pressure 91 mm[Hg] MD Terri Santos Work Phone: [facility] 04-28-2022 11:54-0400 Heart rate 92 /min MD Terri Santos Work Phone: [facility] 04-28-2022 11:54-0400 Respiratory rate 18 /min MD Terri Santos Work Phone: [facility] 04-28-2022 11:54-0400 SaO2% (BldA) [Mass fraction] 92 % MD Terri Santos Work Phone: [facility] 04-28-2022 11:54-0400 Systolic blood pressure 173 mm[Hg] MD Terri Santos Work Phone: [facility] 04-28-2022 05:14-0400 Body weight 126.5 kg MD Terri Santos Work Phone: [facility] 04-27-2022 10:48-0400 Inhaled oxygen flow rate 6 L/min MD Terri Santos Work Phone: [facility] 04-27-2022 09:08-0400 Body height 180.34 cm MD Terri Santos Work Phone: [facility] 04-27-2022 09:08-0400 Body mass index (BMI) [Ratio] 37.6 kg/m2 MD Terri Santos Work Phone: [facility] 04-01-2022 10:10-0400 Blood Pressure Location Leonid WHITEHEAD [facility] 04-01-2022 10:10-0400 Diastolic blood pressure 69 mm[Hg] Leonid WHITEHEAD [facility] 04-01-2022 10:10-0400 Heart rate 79 /min Leonid WHITEHEAD [facility] [place] 04-01-2022 10:10-0400 Respiratory rate 16 /min Leonid WHITEHEAD [facility] [place] 04-01-2022 10:10-0400 Systolic blood pressure 167 mm[Hg] Leonid WHITEHEAD [facility] [place] 02-22-2022 14:45-0400 Body height 172.72 cm Burak Rangel Other [employer] Other 02-22-2022 14:45-0400 Body mass index (BMI) [Ratio] 45.08 kg/m2 Burak Rangel Other [employer] Other 02-22-2022 14:45-0400 Body temperature 97.5 [degF] Burak Rangel Other [employer] Other 02-22-2022 14:45-0400 Body weight 134.49 kg Burak Rangel Other [employer] Other 02-22-2022 14:45-0400 Diastolic blood pressure 75 mm[Hg] Burak Rangel Other [employer] Other 02-22-2022 14:45-0400 SaO2% (BldA) [Mass fraction] 96 % Burak Rangel Other [employer] Other 02-22-2022 14:45-0400 Systolic blood pressure 148 mm[Hg] Burak Rangel Other [employer] Other 12-22-2021 08:15-0400 Blood Pressure Location Luiz MORRISON [facility] [place] 12-22-2021 08:15-0400 Diastolic blood pressure 71 mm[Hg] Luiz MORRISON [facility] [place] 12-22-2021 08:15-0400 Heart rate 74 /min Luiz MORRISON [facility] [place] 12-22-2021 08:15-0400 Systolic blood pressure 139 mm[Hg] Luiz MORRISON [facility] 12-11-2021 08:18-0400 Blood Pressure Location [facility] [place] 12-11-2021 08:18-0400 Diastolic blood pressure 77 mm[Hg] [facility] [place] 12-11-2021 08:18-0400 Heart rate 77 /min [facility] [place] 12-11-2021 08:18-0400 Systolic blood pressure 155 mm[Hg] [facility] [place] 11-04-2021 10:36-0400 Blood Pressure Location Luiz MORRISON [facility] [place] 11-04-2021 10:36-0400 Diastolic blood pressure 78 mm[Hg] Luiz MORRISON [facility] 11-04-2021 10:36-0400 Heart rate 85 /min Luiz MORRISON [facility] [place] 11-04-2021 10:36-0400 Respiratory rate 16 /min Luiz MORRISON [facility] [place] 11-04-2021 10:36-0400 Systolic blood pressure 144 mm[Hg] Luiz MORRISON [facility] [place] 08-31-2021 15:23-0500 Diastolic blood pressure 60 mm[Hg] Terri Rmp Work Phone: [facility] [facility] 600 DO Work Phone: 08-31-2021 15:23-0500 Systolic blood pressure 130 mm[Hg] Terri Powellsop Work Phone: [facility] 600 DO Work Phone: 08-31-2021 15:08-0500 Body height 177.8 cm Terri Powellsop Work Phone: [facility] 600 DO Work Phone: 08-31-2021 15:08-0500 Body mass index (BMI) [Ratio] 40.89 kg/m2 Terri Powellsop Work Phone: [facility] 600 DO Work Phone: 08-31-2021 15:08-0500 Body surface area Derived from formula 2.43 m2 Terri Powellsop Work Phone: [facility] 600 DO Work Phone: 08-31-2021 15:08-0500 Body weight 129.28 kg Terri Allsop Work Phone: [facility] [employer] 600 DO Work Phone: 08-31-2021 15:08-0500 Diastolic blood pressure 79 mm[Hg] Terri Allsop Work Phone: [facility] 600 DO Work Phone: 08-31-2021 15:08-0500 Heart rate 75 /min Terri Allsop Work Phone: [facility] [employer] 600 DO Work Phone: 08-31-2021 15:08-0500 Systolic blood pressure 144 mm[Hg] Terri Allsop Work Phone: [facility] [employer] 600 DO Work Phone: 03-10-2021 15:09-0400 Body height 177.8 cm Terri Allsop Other Phone: [facility] 03-10-2021 15:09-0400 Body temperature 98.42 [degF] Terri Allsop Other Phone: [facility] 03-10-2021 15:09-0400 Diastolic blood pressure 70 mm[Hg] Terri Allsop Other Phone: [facility] 03-10-2021 15:09-0400 Heart rate 82 /min Terri Allsop Other Phone: [facility] 03-10-2021 15:09-0400 SaO2% (BldA) [Mass fraction] 95 % Terri Allsop Other Phone: [facility] 03-10-2021 15:09-0400 Systolic blood pressure 132 mm[Hg] Terri Allsop Other Phone: [facility] Encounters Encounter Date Encounter Type Care Provider Facility Start: 07-25-2024 End: 07-25-2024 Bamboo flowsheet Liliana Waller MD Work Phone: [facility] Start: 07-25-2024 End: 07-25-2024 Bamboo flowsheet Liliana Waller MD Work Phone: [facility] Start: 07-25-2024 End: 07-25-2024 Office outpatient visit 25 minutes Liliana Waller MD Work Phone: [facility] Comment on above: Acute deep vein thro mbosis (DVT) of distal vein of right lower extremity (CMS/HCC) (Primary Dx); 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; Essential hypertension (CMS/HCC); PVD (peripheral vascular disease) (CMS/HCC); BMI 40.0-44.9, adult (CMS/HCC); Morbid obesity (CMS/HCC) Start: 06-20-2024 End: 06-20-2024 ambulatory Luiz MORRISON Facility:[facility] Start: 06-20-2024 End: 06-20-2024 Patient encounter procedure Luiz MORRISON [facility] Start: 06-13-2024 End: 06-13-2024 Paramjit Lopez MA [...] Start: 06-01-2024 End: 06-01-2024 ambulatory TERRI SANTOS Facility:[facility] Start: 06-01-2024 End: 06-01-2024 Patient [...] Start: 05-25-2024 End: 05-25-2024 ambulatory Luiz MORRISON Facility[place] Start: 05-25-2024 End: 05-25-2024 Patient encounter procedure Luiz MORRISON [facility] Start: 05-10-2024 End: 05-10-2024 Bamjumao ilana Waller MD Work Phone: [facility] Start: 05-10-2024 End: 05-10-2024 Lorenzo Waller MD Work Phone: [facility] Start: 05-10-2024 End: 05-10-2024 Office outpatient visit 25 minutes Liliana Waller MD Work Phone: [facility] Comment on above: Acute deep vein thro mbosis (DVT) of distal vein of right lower extremity (CMS/HCC) (Primary Dx); 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; Cardiomyopathy, unspecified type (CMS/HCC); PVD (peripheral vascular disease) (CMS/HCC); Essential hypertension (CMS/HCC); BMI 40.0-44.9, adult (CMS/HCC); Morbid obesity (CMS/HCC) Start: 05-10-2024 End: 05-10-2024 ambulatory LILIANA WALLER Not Available Start: 05-07-2024 End: 05-07-2024 ambulatory [facility] Work Phone: Start: 05-07-2024 End: 05-07-2024 Patient encounter procedure [facility] Work Phone: Start: 04-24-2024 End: 04-24-2024 Telephone encounter Elyssa Adler MD Work Phone: [facility] Start: 04-13-2024 End: 04-13-2024 Bamboo flowsheet Elyssa Adler MD Work Phone: [facility] Start: 04-13-2024 End: 04-13-2024 Bamboo flowsheet Elyssa Adler MD Work Phone: [facility] Start: 04-13-2024 End: 04-13-2024 Office outpatient visit 25 minutes Elyssa Adler MD Work Phone: [facility] Comment on above: Acute deep vein thro mbosis (DVT) of distal vein of right lower extremity (CMS/HCC) (Primary Dx); Cardiomyopathy, unspecified type (CMS/HCC); PVD (peripheral vascular disease) (CMS/HCC) Start: 04-13-2024 End: 04-13-2024 ambulatory ELYSSA ADLER Not Available Start: 03-26-2024 End: 03-26-2024 ambulatory ADAM D DOLCE Not Available Start: 03-12-2024 End: 03-12-2024 Patient encounter procedure [facility] Work Phone: Start: 01-09-2024 End: 01-09-2024 ambulatory ADAM D DOLCE Not Available Start: 12-01-2023 End: 12-01-2023 ambulatory TERRI Margarette ALLSOP Not Available Start: 11-25-2023 End: 11-25-2023 ambulatory Terri D Allsop Facility:[facility] Start: 11-25-2023 End: 11-25-2023 Patient encounter procedure Terri D Allsop [facility] Start: 11-17-2023 End: 11-17-2023 ambulatory TERRI D ALLSOP Not Available Start: 10-31-2023 End: 10-31-2023 ambulatory ADAM D DOLCE Not Available Start: 10-21-2023 End: 10-21-2023 ambulatory Terri D Allsop Facility:[facility] Start: 10-21-2023 End: 10-21-2023 Patient encounter procedure Terri Pfeiffer [facility] Start: 09-30-2023 End: 09-30-2023 Office outpatient visit 25 minutes Delores Ac MD Work Phone: [facility] Comment on above: Essential hypertensi on; Non-ischemic cardiomyopathy (CMS/HCC); Hyperlipidemia, unspecified hyperlipidemia type; Obstructive sleep apnea, adult; Morbid obesity with BMI of 40.0-44.9, adult (CMS/HCC) Start: 09-30-2023 End: 09-30-2023 ambulatory [facility] Start: 08-25-2023 End: 08-25-2023 ambulatory TERRI Margarette ALLSOP Not Available Start: 08-22-2023 End: 08-22-2023 ambulatory ADAM Margarette DOLCE Not Available Start: 06-15-2023 End: 06-15-2023 Patient encounter procedure Luiz MORRISON [facility] Start: 04-30-2023 End: 04-30-2023 Patient encounter procedure Luiz MORRISON [facility] Start: 02-21-2023 Office outpatient vi sit 15 minutes [facility] Start: 02-21-2023 End: 02-21-2023 ambulatory [facility] Work Phone: Start: 02-21-2023 End: 02-21-2023 Patient encounter procedure MD Terri Santos Work Phone: [facility] Work Phone: Start: 11-04-2022 Rx Renewal Terri Allso p Work Phone: [facility] 250 DO Work Phone: Start: 11-03-2022 End: 11-03-2022 Patient encounter procedure Luiz Jackson TAMIKO [facility] [place] Start: 09-29-2022 Chart Update Terri Powellso p Work Phone: [facility] 600 DO Work Phone: Start: 09-29-2022 End: 09-29-2022 Patient encounter procedure Delores Ac [facility] Start: 09-28-[address] Delores Ac Facility: Start: 09-28-2022 Office outpatient vi sit 10 minutes Terri Powellsop Work Phone: [facility] 600 DO Work Phone: Start: 09-10-2022 Office outpatient vi sit 25 minutes Terri Allsop Work Phone: [facility] 600 DO Work Phone: Start: 09-10-2022 Patient encounter procedure Terri Powellsoramona Work Phone: [facility] 600 DO Work Phone: Start: 09-10-[address] Terri Santos Facility: Start: 07-02-2022 Rx Renewal eTrri Allso p Work Phone: [facility] 250 DO Work Phone: Start: 06-24-2022 End: 06-24-2022 Patient encounter procedure William BuenoPrashant Brush [facility] Start: 05-21-2022 End: 05-21-2022 Patient encounter procedure Cici Merida OD Work Phone: Ophthalmology Comment on above: Epiretinal membrane (ERM) of both eyes (Primary Dx); Floppy eyelid syndrome of both eyes; Combined forms of age-related cataract of both eyes; Posterior vitreous detachment of both eyes; Vitreous floaters of both eyes Start: 05-12-2022 End: 05-12-2022 Patient encounter procedure Luiz MORRISON [facility] [place] Start: 05-10-2022 Rx Renewal Terri greene [facility] Work Phone: Start: 04-30-2022 End: 04-30-2022 Patient encounter procedure Luiz MORRISON [facility] [place] Start: 04-27-2022 End: 04-28-2022 ambulatory Luiz Morrison Facility:[facility] Start: 04-27-2022 End: 04-28-2022 Admission to same day surgery center MD Terri Santos Work Phone: [facility] [place] Start: 04-23-2022 End: 04-23-2022 ambulatory Luiz Morrison Facility:[facility] Start: 04-23-2022 End: 04-23-2022 Patient encounter procedure MD Terri Santos Work Phone: [facility] Start: 04-13-2022 End: 04-13-2022 ambulatory Luiz Morrison Facility:[facility] Start: 04-13-2022 End: 04-13-2022 Patient encounter procedure MD Terri Santos Work Phone: [facility]Pre-Surgical [facility] Start: 04-01-2022 End: 04-01-2022 Lab Drop off Adam Jack [facility] Start: 04-01-2022 End: 04-01-2022 Patient encounter procedure Leonid WHITEHEAD [facility] [place] Start: 03-26-2022 End: 04-07-2022 Pre-admission assessment Milo Gonzales [facility] Start: 03-17-2022 End: 03-17-2022 Patient encounter procedure Luiz MORRISON [facility] [place] Start: 03-02-2022 End: 03-02-2022 Patient encounter procedure Luiz MORRISON [facility] Start: 02-22-2022 End: 02-22-2022 ambulatory Burak Rangel Other [employer] Other Start: 02-22-2022 Office outpatient vi sit 15 minutes Kamal Chapoli [facility] Start: 02-22-2022 End: 02-22-2022 Patient encounter procedure MD Terri Santos Work Phone: [facility] Start: 01-21-2022 End: 01-21-2022 Patient encounter procedure MD Terri Santos Work Phone: [facility] [place] Start: 12-22-2021 End: 12-22-2021 Lab Drop off Luiz MORRISON [facility] Start: 12-22-2021 End: 12-22-2021 Patient encounter procedure Luiz MORRISON [facility] Start: 12-11-2021 End: 02-20-2022 Pre-admission assessment William Brush [facility] Start: 12-11-2021 End: 12-11-2021 Patient encounter procedure William Brush [facility] Start: 12-10-2021 End: 12-10-2021 Patient encounter procedure Belinda VELASQUEZ [facility] Start: 12-08-2021 End: 12-08-2021 Patient encounter procedure Luiz MORRISON [facility] Start: 12-01-2021 End: 12-01-2021 Patient encounter procedure Luiz MORRISON [facility] Start: 11-19-2021 End: 11-19-2021 Patient encounter procedure Luiz MORRISON [facility] Start: 11-04-2021 End: 11-04-2021 Patient encounter procedure Luiz MORRISON [facility] Start: 08-31-2021 Office outpatient vi sit 25 minutes Terri Santos Work Phone: [place] [address] DO Work Phone: Start: 06-10-2021 Rx Renewal Terri greene Work Phone: -[facility] 600 DO Work Phone: Start: 03-10-2021 End: 03-10-2021 Emergency department patient visit Chriss Marie [facility] Start: 04-11-2018 End: 04-11-2018 Emergency department patient visit Danyell Nelson Facility:[facility] Procedures Date Procedure Procedure Detail [...] DTaP/Tdap/Td Vaccines (2 - Td or Tdap) [facility] Start: 09-03-2033 Urine microalbumin profile DTaP,Tdap,Td Vaccine (2 - Td or Tdap) [facility] Start: 06-24-2032 Screening for malign ant neoplasm of colon [facility] Start: 11-23-2024 End: 11-23-2024 Patient encounter procedure 11/23/2024 2:30 PM EDT Office Visit [facility] [address] [place] [address] Josselin Decker MD [address] [place] [id number] oct/erm Ophthalmology Comment on above: oct/erm Start: 11-08-2024 End: 11-08-2024 Patient encounter procedure 11/08/2024 9:00 AM EDT Office Visit [facility] [address] [place] [phone] Liliana Waller MD [address] [place] [address] [facility] Start: 09-25-2024 End: 09-25-2024 Patient encounter procedure 09/25/2024 9:00 AM EST Office Visit [facility] [address] [place] [phone] Delores Ac MD [address] [facility] [place] [address] [facility] Start: 08-20-2024 End: 08-20-2024 Patient encounter procedure 08/20/2024 8:00 AM EST Procedure Visit [facility] [address] [place] [address] Adam Jack, DPM FACFAS [address] [place] [address] [facility] Start: 07-25-2024 End: 07-25-2024 Patient encounter procedure 07/25/2024 8:40 AM EST Office Visit [facility] [address] [place] [phone] Liliana Waller MD [address] [place] [address] Arrived [facility] Comment on above: Arrived Start: 06-04-2024 End: 06-04-2024 Patient encounter procedure [facility] Comment on above: Arrived Start: 05-10-2024 End: 05-10-2024 Patient encounter procedure [facility] Comment on above: Arrived Start: 04-13-2024 End: 04-13-2025 Comprehensive metabolic 2000 panel - Serum or Plasma Comprehensive metabolic panel Lab Routine Acute deep vein thrombosis (DVT) of distal vein of right lower extremity (CMS/HCC) Expected: 04/13/2024 (Approximate), Expires: 04/13/2025 [facility] Work Phone: Comment on above: Expected: 04/13/2024 (Approximate), Expires: 04/13/2025 Start: 04-13-2024 End: 04-13-2024 Patient encounter procedure 04/13/2024 10:40 AM EDT Office Visit [facility] [address] [place] [phone] Elyssa Adler MD [address] [place] [address] Arrived [facility] Comment on above: Arrived Start: 04-08-2024 Influenza vaccination Influenza Vacc ine (#1) [facility] Start: 10-29-2023 Zoster Vaccines (2 o f 2) Zoster Vaccines (2 of 2) [facility] Start: 09-30-2023 FUV, Provider: Delores Ac, Status: Pen, Time: 9:00 AM FUV, Provider: Delores Ac, Status: Pen, Time: 9:00 AM -[facility] 600 DO Work Phone: Start: 08-08-2023 Advance Directive Discussion Advance Directive Discussion [facility] Start: 04-08-2023 COVID-19 Vaccine ( season) COVID-19 Vaccine () [facility] Start: 09-28-2022 NURSEVST, Provider: ISHA TRINIDAD PARACHUTE PANEL JOINER 1,[id number], Status: Pen, Time: 11:30 AM NURSEVST, Provider: ISHA TRINIDAD [place]ACH[place] PANEL JOINER 1,[id number], Status: Pen, Time: 11:[address] [facility] Work Phone: Start: 08-31-2022 FUV, Provider: Delores Ac, Status: Pen, Time: 8:40 AM FUV, Provider: Delores Ac, Status: Pen, Time: 8:40 AM -[facility] 600 DO Work Phone: Start: 08-03-2022 Pneumococcal Vaccine : 65+ (2 of 2 - PCV) Pneumococcal Vaccine: 65+ (2 of 2 - PCV) [facility] Start: 08-03-2022 Pneumococcal Vaccine : 65+ Years (2 - PCV) Pneumococcal Vaccine: 65+ Years (2 - PCV) [facility] Start: 04-28-2022 [facility] Work Phone: Start: 04-27-2022 Hospital admission [facility] Work Phone: Start: 04-08-2022 Influenza vaccination INFLUENZA (#1) [facility] Start: 01-21-2022 MR prostate wo/w con MR prostate wo/ w con [facility] Start: 10-05-2021 COVID-19 VACCINE (4 - Booster for Moderna series) COVID-19 VACCINE (4 - Booster for Moderna series) [facility] Start: 08-08-2021 ADVANCE DIRECTIVE DISCUSSION ADVANCE DIRECTIVE DISCUSSION [facility] Start: 08-08-2021 DEPRESSION ASSESSMENT DEPRESSION ASS ESSMENT [facility] Start: 07-10-2021 STACIA, Provider : Delores Ac, Status: Pen, Time: 10:10 AM STACIA, Provider: Delores Ac, Status: Pen, Time: 10:10 AM [facility] 600 DO Work Phone: Start: 01-01-2021 PNEUMOCOCCAL: 65+ (1 - PCV) PNEUMOCOCCAL: 65+ (1 - PCV) [facility] Start: 10-07-2012 Colonoscopy COLONOSCOPY [facility] Start: 10-07-2012 COLORECTAL CANCER SCREENING COLORECTAL CANCER SCREENING [facility] Start: 10-07-2012 Screening for malign ant neoplasm of colon [facility] Start: 01-01-2011 PROSTATE CANCER SCREENING DISCUSSION PROSTATE CANCER SCREENING DISCUSSION [facility] Start: 01-01-2011 Prostate specific antigen measurement Prostate Cancer Screening Discussion [facility] Start: 01-01-2006 SHINGRIX VACCINE (1 of 2) SHINGRIX VACCINE (1 of 2) [facility] Start: 01-01-2001 COLOGUARD (FIT-DNA) COLOGUARD (FIT-D NA) [facility] Start: 01-01-[address] COLONOGRAPHY [facility] Start: 01-01-2001 DIABETES SCREEN DIABETES SCREEN [facility] Start: 01-01-2001 Diabetes Screening Diabetes Screenin g [facility] Start: 01-01-2001 FECAL OCCULT BLOOD FECAL OCCULT BLOO D [facility] Start: 01-01-2001 Screening for malign ant neoplasm of colon [facility] Start: 01-01-2001 SIGMOIDOSCOPY SIGMOIDOSCOPY [facility] Start: 01-01-1991 Lipid panel Lipid Screening [facility] Start: 01-01-1991 LIPID SCREEN LIPID SCREEN [facility] Start: 01-01-1975 Urine microalbumin profile DTAP,TDAP,TD (1 - Tdap) [facility] Start: 01-01-1974 Annual PCP Team Respiratory Assistant gonzalo Disease Visit Annual PCP Team Chronic Disease Visit [facility] Start: 01-01-1974 BP Controlled (<130/80) BP Controlle d (<130/80) [facility] Start: 01-01-1974 Depression Screening Depression Scre celestina [facility] Start: 01-01-1974 Diabetes mellitus screening Diabetes Screening [facility] Start: 01-01-1974 HEPATITIS C SCREENING HEPATITIS C [facility] Start: 01-01-1974 Hepatitis C screening Hepatitis C [facility] Start: 1956 Lipid panel Lipid Panel [facility] Start: 1956 Screening for malign ant neoplasm of colon [facility] Start: 1956 Yearly Adult Physical Yearly Adult P hysical [facility] Patient referral [facility] Work Phone: [facility] Immunizations Immunization Date Immunization Notes Care Provider Fa pari 04-14-2024 influenza virus vacc ine, unspecified formulation Liliana Waller MD Work Phone: [facility] 11-05-2023 zoster vaccine recombinant Luiz MORRISON [facility] 09-03-2023 tetanus toxoid, redu davion diphtheria toxoid, and acellular pertussis vaccine, adsorbed Luiz MORRISON [facility] 09-03-2023 zoster vaccine recombinant Luiz MORRISON [facility] 05-19-2023 influenza virus vacc ine, unspecified formulation Luiz MORRISON [facility] 05-19-2023 Influenza, High-dose Seasonal, Quadrivalent, Preservative Free Elyssa Adler MD Work Phone: [facility] 05-27-2022 Fluzone High-Dose Quadrivalent 0.7 ML Intramuscular Suspension Prefilled Syringe Terri Santos Work Phone: [facility] 600 DO Work Phone: 05-27-2022 influenza virus vacc ine, unspecified formulation Luiz MORRISON [facility] 08-10-2021 Moderna COVID-19 Vac cine 100 MCG/0.5ML Intramuscular Suspension Terri Powellsop Work Phone: [facility] 08-08-2021 SARS-CoV-2 (COVID-19 ) mRNA-1273 vaccine Luiz MORRISON [facility] Comment on above: Result Comment: [facility] 08-03-2021 Fluzone High-Dose Quadrivalent 0.7 ML Intramuscular Suspension Prefilled Syringe Terri Powellsop [facility] 600 DO Work Phone: 08-03-2021 influenza virus vacc ine, unspecified formulation Luiz MORRISON [facility] 08-03-2021 pneumococcal polysaccharide vaccine, 23 valent Terri Allsop Work [facility]: [facility] 600 DO Work Phone: 2021 Moderna COVID-19 Vac cine 100 MCG/0.5ML Intramuscular Suspension Terri Allsop [facility] 600 DO Work Phone: 12-05-2020 Moderna COVID-19 Vac cine 100 MCG/0.5ML Intramuscular Suspension Terri Allsop [facility] Phone[facility] 600 DO Work Phone: 06-26-2020 influenza virus vacc ine, unspecified formulation Luiz MORRISON [facility] 06-26-2020 influenza, injectabl e, quadrivalent, preservative free Terri Allsop Work Phone: [facility] 600 DO Work Phone: 06-16-2019 influenza virus vacc ine, unspecified formulation Luiz MORRISON [facility] 06-16-2019 seasonal influenza, intradermal, preservative free Terri Allsop Work Phone: [facility] 600 DO Work Phone: 06-08-2019 influenza virus vacc ine, unspecified formulation Luiz MORRISON [facility] 06-08-2019 influenza, seasonal, injectable Terri Allsop Work Phone: [facility] 600 DO Work Phone: 06-07-2019 influenza virus vacc ine, unspecified formulation Luiz MORRISON [facility] 05-08-2018 influenza virus vacc ine, unspecified formulation Terri Allsop Work Phone: [facility] 600 DO Work Phone: 06-08-2016 influenza virus vacc ine, unspecified formulation Terri Allsop Work Phone: [facility] 600 DO Work Phone: 06-08-2016 pneumococcal polysaccharide vaccine, 23 valent Terri Allsop Work Phone: [facility] 600 DO Work Phone: 05-16-2015 influenza virus vacc ine, unspecified formulation Terri Allsop Work Phone: [facility] 600 DO Work Phone: 06-22-2013 influenza virus vacc ine, unspecified formulation Terri Allsop Work Phone: [facility] 600 DO Work Phone: 06-21-2013 pneumococcal polysaccharide vaccine, 23 valent Terri Allsop Work Phone: [facility] 600 DO Work Phone: 05-01-2012 influenza virus vacc ine, whole virus Terri Allsop Work Phone: [facility] 600 DO Work Phone: 05-01-2012 influenza, whole Luiz ANDREW ERS [facility] influenza virus vacc ine, unspecified formulation Terri Allsop Work Phone: [facility] 600 DO Work Phone: Comment on above: 2011 2006 Payers Date Payer Category Payer Self-pay [id number] 2021 Private Health Insurance [employer] [id number] 2018 Unknown 2014 Unknown [id number] 1956 Unknown [id number] 2..[id number]. 356 1956 Unknown [id number] 2..[id number]. 356 1956 Unknown [id number] 2.16.840.1.935245.3.579.2. 1244 1956 Unknown [id number] 2.16.840.1.241597.3.579.2. 1258 1956 Unknown [id number] 2.16.840.1.299620.3.579.2. 1258 1956 Unknown [id number] 2.16.840.1.177500.3.579.2. 1258 1956 Unknown [id number] 2.16.840.1.847143.3.579.2. 1258 1956 Unknown [id number] 2.16.840.1.045962.3.579.2. 1258 1956 Unknown [id number] 2.16.840.1.912548.3.579.2. 1258 1956 Unknown [id number] 2.16.840.1.047447.3.579.2. 1258 1956 Unknown [id number] 2.16.840.1.646551.3.579.2. 1258 1956 Unknown [id number] 2.16.840.1.507833.3.579.2. 1258 1956 Unknown [id number] 2.16.840.1.763405.3.579.2. 1258 1956 Unknown [id number] 2.16.840.1.335175.3.579.2. 1956 Unknown [id number] 2.16.840.1.649277.3.579.2. 1956 Unknown [id number] Unknown [id number] Unknown [id number] 531 Unknown [id number] 531 Unknown [id number] 531 Unknown [id number] 531 Social History Date Type Detail Facility [facility] Tobacco smoking consumption unknown [facility] Start: 09-30-2023 End: 04-13-2024 [facility] Work Phone: Start: 11-04-2021 End: 01-04-2023 Tobacco smoking status Never smoked tobacco (finding) [facility] [place] Tobacco smoking status Ex-smoker (finding ) [facility] [place] Tobacco smoking status Never [facility] [place] Start: 09-30-2023 End: 04-13-2024 Sex Assigned At Male [facility] [place] Start: 1955 Sex Assigned At Male F [facility] Start: 04-12-2018 End: 01-04-2023 Tobacco use and exposure Smokeless tobacco non-user [facility] Start: 05-21-2022 End: 04-13-2024 Alcohol intake Lifetime non-drinker (finding) [facility] Start: 08-27-2019 History SDOH Alcohol Frequency 1 [facility] Start: 1955 Sex Assigned At Not on file [facility] Start: 05-11-2022 End: 09-30-2023 Exposure to SARS-CoV-2 (event) Not sure [facility] Start: 01-03-2023 Alcohol Comment caffeine: 2-3 cups per day [facility] Goals Date Patient Goal Desired Activity /State Functional Status Date Assessment Result Facility 06-20-2024 Functional Status N/A [facility] 06-15-2023 Functional Status N/A [facility] 11-03-2022 Functional Status N/A [facility] 06-24-2022 Functional Status N/A [facility] 05-12-2022 Functional Status N/A [facility] 04-28-2022 Functional status Patient at Baseline [facility] Work Phone: 04-01-2022 Functional Status N/A [facility] [place] 03-17-2022 Functional Status N/A [facility] Mental Status Date Assessment Result Facility 04-28-2022 Cognitive function Cognitive Sta tus Patient at Baseline [facility] Work Phone: Clinical Notes 08-15-2020 to 07-25-2024 Liliana Waller MD - 07/25/2024 8:40 AM ESTTelephone Encounter - Yudith Daniel NP - 06/13/2024 10:59 AM ESTTelephone Encounter - Yudith Daniel NP - 06/13/2024 10:59 AM EST Note Date & Type Note Facility 07-25-2024 History of Present illness Narrative Images from the original note were not included. Subjective Patient ID: Phu Lopez is a 69 y.o. male who presents for Med review. HPI Pt here for follow up. Was diagnosed with DVT previously and has been taking eliquis, which is very expensive. Was rx'd xarelto to see if medication would be cheaper, but is about the same flores. Denies side effects of meds. Does follow w/ vascular and was advised against switching to coumadin. HTN - denies sx of high or low BP. Denies side effects of meds. Review of Systems General: Denies fever, chills, fatigue, SAVAGE or weight loss/gain CV: Denies CP, palpitations or swelling in legs Resp: denies cough, SOB or wheezing GI: Denies abd pain/n/v/c/d Skin: Denies rash Neuro: Denies LH or dizziness Objective Blood pressure 142/80, pulse 70, temperature 98.4 F, height 5' 10 , weight 306 lb, SpO2 97%. Body mass index is 43.91 kg/m . Physical Exam General: alert & oriented, NAD Head: NC/AT Oral Cavity: MMM Skin: warm, dry Heart: RRR, No m/r/g, S1S2 nml Lungs: CTA b/l Abdomen: soft, ND/NT, BS wnl Musculoskeletal: normal gait Extremities: no clubbing, cyanosis or edema Neurological: nonfocal Psych: mood/affect full range Assessment/Plan Phu was seen today for med review. Diagnoses and all orders for this visit: Acute deep vein thrombosis (DVT) of distal vein of right lower extremity (CMS/HCC) (Primary) Stable, continue to monitor. No change in regimen. Continue to follow w/ vascular Samples of eliquis given to pt, advised to call when he needs more 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 Essential hypertension (CMS/HCC) Stable, continue to monitor. No change in regimen. PVD (peripheral vascular disease) (CMS/HCC) - as above BMI 40.0-44.9, adult (CMS/HCC) Morbid obesity (CMS/HCC) - continue to monitor weight documented in this encounter [facility] 06-20-2024 Hospital Discharge instructions Patient Education 06/20/2024 [...] urethra. Follow these instructions at home: Take gkms-cca-rqjoqzy and prescription medicines only as told by [...] provider. Document Revised: 02/10/2022 Document Reviewed: 02/10/2022 [employer] Patient Education 2023 TMS Follow Up Care 06/15/2023 14:27:36 With:TAMIKO SAEZ, Luiz Jackson, URL Address: [facility] [address], [place] [address]- When: Unknown [facility] 06-20-2024 Evaluation + Plan note Diagnostic Tests PendingPSA Total 06/20/24 [facility] 06-20-2024 Note Patient Education Urology Benign Prostatic [...] Follow these instructions at home: ??? Take uecn-ysx-rruktzd and prescription medicines only as told by [...] do not get (more content not included)... [facility] 06-13-2024 Telephone encounter Note HR OOO, Rx [...] subungual debris. They were painful to palpation 65825 on the right 81147 on the left. VASC: DP /PT were nonpalpable bilateral. Capillary refill time < 3 seconds Digits 1-5 bilateral NEURO: [place] Osiris 5.07 monofilament was intact B/L. Vibratory [...] in length and thickness 1 through 10. Adam Jack DPM FACCONY documented in this encounter [facility] 06-01-2024 Note Date of Procedure 06/01/2024. 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 Interpretation Right Eye Findings include Epiretinal [...] any questions please contact our office at [phone]. After office hours or on the weekend, please call Dr. Decker on his cell phone at [phone]. documented in this encounter [facility] 06-01-2024 Note HNO ID: [id number] Author: JOSSELIN DECKER MD Service: ? Author [...] agree with all of its relevant components. [facility] 06-01-2024 History of Present illness Narrative ASSESSMENT/PLAN: [...] its relevant components. documented in this encounter [facility] 05-10-2024 History of Present illness Narrative [...] in regimen. Continue to follow w/ vascular 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 Cardiomyopathy, unspecified type [...] this encounter [facility] 04-13-2024 History of Present illness Narrative Images from the original note were not included. Phu Lopez is a 69 y.o. male presents with chief complaint of No chief complaint on file. HPI: History of Present Illness The patient presents for evaluation of a blood clot. He has been diagnosed with a blood clot, measuring 3 cm, in his right leg. This is his first experience with such a condition. He suspects the clot may have formed spontaneously. Earlier this year, he drove to [place] and back, but has not taken any long car rides in the past month. In late 02/2024, due to car repairs, he walked extensively for a few days, covering an estimated distance of 20 to 25 miles. He experiences edema in both lower legs, with the right leg being more swollen than the left. He has not undergone any recent surgeries or hospitalizations. He is currently on Eliquis and has temporarily stopped taking aspirin, is waiting to resume aspirin until he hears back from Dr. Dowling's office . He does not require refills for any other medications at this time. His landman referred him to Dr. Gurrola, a vascular specialist, whom he plans to visit in person next week. MEDICATIONS: Current Outpatient Medications Medication Instructions aMILoride (MIDAMOR) 5 mg, Oral, Daily amLODIPine (NORVASC) 10 mg, Oral, Daily apixaban (ELIQUIS) 5 mg, Oral, 2 times daily aspirin 325 mg, Oral, Daily carvedilol (Coreg) 25 MG tablet Oral, 2 times daily with meals doxazosin (CARDURA) 4 mg, Oral, Nightly finasteride (PROSCAR) 5 mg, Oral, Daily, Do not crush, chew, or split. hydrALAZINE (APRESOLINE) 50 mg, Oral, 3 times daily hydroCHLOROthiazide (HYDRODIURIL) 25 mg, Oral, Every morning losartan (COZAAR) 100 mg, Oral, Daily lovastatin (MEVACOR) 30 mg, Oral, Daily montelukast (SINGULAIR) 10 mg, Oral, Nightly niacin (NIASPAN) 500 mg, Oral, Nightly, Do not crush, chew, or split. PARoxetine (Paxil) 20 MG tablet TAKE 1/2 TO 1 (ONE-HALF TO ONE) TABLET BY MOUTH ONCE DAILY potassium chloride CR (Klor-Con M10) 10 MEQ ER tablet 10 mEq, Oral, Daily, Do not crush or chew. potassium chloride CR (Klor-Con) 10 MEQ ER tablet TAKE 7 TABLETS BY MOUTH ONCE DAILY FOR 30 DAYS ALLERGIES: Allergies Allergen Reactions Clarithromycin Unknown Review of Systems Constitutional: Negative for chills and fever. Respiratory: Negative for shortness of breath. Cardiovascular: Positive for leg swelling. Negative for chest pain. Gastrointestinal: Negative for abdominal pain, nausea and vomiting. Neurological: Negative for headaches. Medical, Surgical, Family, and Social History reviewed. OBJECTIVE: Visit Vitals BP 132/82 Pulse 71 Temp 98.4 F Wt 293 lb 3.2 oz SpO2 97% BMI 42.07 kg/m Smoking Status Never BSA 2.56 m BP Readings from Last 3 Encounters: 04/13/24 132/82 03/26/24 132/68 01/09/24 135/64 Wt Readings from Last 3 Encounters: 04/13/24 293 lb 3.2 oz 03/26/24 292 lb 01/09/24 292 lb Physical Exam Constitutional: Appearance: Normal appearance. He is normal weight. HENT: Head: Normocephalic and atraumatic. Nose: Nose normal. Mouth/Throat: Mouth: Mucous membranes are moist. Eyes: Conjunctiva/sclera: Conjunctivae normal. Cardiovascular: Rate and Rhythm: Normal rate and regular rhythm. Pulmonary: Effort: Pulmonary effort is normal. No respiratory distress. Abdominal: General: Bowel sounds are normal. Tenderness: There is no abdominal tenderness. Musculoskeletal: General: Swelling (BL, R worse than left) present. Cervical back: Neck supple. Skin: General: Skin is warm and dry. Neurological: General: No focal deficit present. Psychiatric: Mood and Affect: Mood normal. Physical Exam Results Imaging Blood clot of 3 cm confirmed. ASSESSMENT AND PLAN: Assessment & Plan 1. Right lower extremity blood clot. He is currently on Eliquis and will continue this medication for 3 to 6 months, as typically recommended for blood clots. If another clot forms, lifelong anticoagulation therapy may be necessary. The decision regarding the resumption of aspirin will be made by Dr. Quintero. Blood work will be conducted today to assess kidney function, specifically eGFR and creatinine levels. Assessment/Plan Diagnoses and all orders for this visit: Acute deep vein thrombosis (DVT) of distal vein of right lower extremity (CMS/HCC) - Comprehensive metabolic panel; Future Cardiomyopathy, unspecified type ([facility]) PVD (peripheral vascular disease) ([facility]) Health Maintenance Due Topic Date Due Influenza Vaccine (1) 04/08/2024 documented [facility] [...] has been very compliant Delores Ac MD, [facility] Review of Systems All other [...] Attestation By signing my name below, Ibeti , Scribe attest that this documentation has [...] discussion and plan. documented in this encounter [facility] Work Phone: 09-30-2023 Instructions Kitty [...] Increase physical activity. documented in this encounter [facility] Work Phone: 06-15-2023 Hospital Discharge [...] urethra. Follow these instructions at home: Take sjhj-uyx-aivtbch and prescription medicines only as told by [...] provider. Document Revised: 02/10/2022 Document Reviewed: 02/10/2022 [employer] Patient Education 2022 [employer]. 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 Follow these instructions at home: Take thcr-pdq-olqkfbe and prescription medicines only as told by [...] 07/25/2006 Document Revised: 06/19/2019 Document Reviewed: 08/29/2017 [employer] Patient Education 2020 [employer]. Follow Up Care 07/29/2022 09:30:30 With:TAMIKO SAEZ, Luiz Jackson, URL Address: [facility] [address], [place] [address]- When: Unknown [facility] 11-17-2022 Hospital Discharge instructions Patient Education 06/24/2022 [...] a slower pace than normal. ?Eat soft, btlf-nd-sieihz foods. Take khin-xsk-yqzcdym or prescription medicines only as told by [...] 03/08/2005 Document Revised: 05/17/2018 Document Reviewed: 10/05/2016 [employer] Patient Education 2020 [employer]. Follow Up Care 02/15/2022 10:08:03 With:William Brush Address:Unknown When: Unknown Comments:will call with results [facility]10-14-2022 Instructions* Patient Instructions* Cici Merida, OD - [...] delay. Recommended yearly exams. [facility] of Present illness Narrative* Cici [...] and examined this patient. [facility] Discharge instructions Patient Education 05/12/2022 [...] Follow these instructions at home: Medicines Take mpcv-rwx-dzbrwbl and prescription medicines only as told by [...] prevent or treat constipation, such as: ?Take ndoe-axx-mtrbiau or prescription medicines. ?Eat foods that are [...] 07/25/2006 Document Revised: 11/14/2019 Document Reviewed: 04/25/2019 [employer] Patient Education 2020 [employer] Follow Up Care 04/30/2022 08:49:28 With:TAMIKO SAEZ, ELVIRA Blanco Address: [facility] [address] [place] [address]- [phone] When:08/12/2022 [facility] 08-10-2022 Hospital Discharge instructions Patient Education 03/17/2022 [...] including vitamins, herbs, eye drops, creams, and vuch-ejo-opxwlgc medicines. Any problems you or family members [...] provider tells you to take them. Taking rhky-mya-jxtvgmk medicines, vitamins, herbs, and supplements. Eating and [...] 07/25/2006 Document Revised: 11/14/2019 Document Reviewed: 04/25/2019 [employer] Patient Education 2019 [employer]. Follow Up Care 02/12/2022 10:45:59 With:TAMIKO SAEZ, Luiz Jackson, URL Address: [facility] [address] , [place] [address]- [phone] When: Unknown Comments:schedule TURP [facility] 07-26-2022 Hospital Discharge instructions Patient [...] for your post-operative appointment in 1-2 weeks [phone] or [phone] Follow Up Care 02/12/2022 10:36:38 With:Luiz MORRISON Address: [facility] [address] [place] [address]- Business (1) When: Unknown Comments:Appointment has already been scheduled [facility]07-18[facility] Evaluation note* Encounter Date Diagnosis [...] G47.61) Feb, Morbid obesity (ICD-10 - E66.01) [employer] Other 05-16-2022 Hospital Discharge instructions Patient Education [...] Follow these instructions at home: Medicines Take snzr-oiu-njbwrfc and prescription medicines only as told by [...] or the blood stops without treatment. Take dkli-ifd-fwuempj and prescription medicines only as told by your health care provider. Drink enough fluid to keep your urine clear or pale yellow. This information is not intended to replace advice given to you by your health care provider. Make sure you discuss any questions you have with your health care provider. Document Released: 07/25/2006 Document Revised: 12/19/2019 Document Reviewed: 08/27/2017 [employer] Patient Education 2019 [employer]. Follow Up Care 12/01/2021 08:55:58 With:TAMIKO SAEZ, Luiz Jackson, URL Address: [facility] [address] , [place] [address]- When: Unknown Comments:Huyen WILKES. [facility] 05-06-2022 Hospital Discharge instructions Patient Education 12/11/2021 [...] food choices, such as grocery stores and [employer]. What are the signs or symptoms? The [...] and how much exercise you get. Take mhia-gwu-hakckoj and prescription medicines only as told by [...] 09/01/2005 Document Revised: 03/29/2019 Document Reviewed: 03/29/2019 [employer] Patient Education [address] [facility] [place] 04-26-2022 Evaluation + Plan noteExtracted from: Title:Urology [...] list: All Problems asthma / SNOMED CT 960030246 / Confirmed Hypocalcemia / SNOMED CT 3045861 / Confirmed Hypokalemia / SNOMED CT 52753291 / Confirmed Obesity / SNOMED CT 5009936359 / Confirmed Chronic heart failure / SNOMED CT 46965482 / Confirmed Hyperlipidemia / SNOMED CT 84918606 / Confirmed Hyperglycemia / SNOMED CT 855971062 / Confirmed Hypertension / SNOMED CT 80319828 / Confirmed Male hypogonadism / SNOMED CT 49995341 / Confirmed Onychomycosis / SNOMED CT 9722272112 / Confirmed Hypothyroid / SNOMED CT 69105805 / Confirmed Depression / SNOMED CT 08776178 / Confirmed Heart disease / SNOMED CT 39685058 / Confirmed Histories Past Medical History: Active asthma (261282383): Onset in 1970 at 15 years. Resolved Depression (300.4): Onset on 12/10/2009 at 54 years. Resolved. Comments: 12/10/2009 EDT 10:06 EDT - Family History: Cardiac arrhythmia Father () Malignant lymphoma Mother () Comments: 12/07/2009 0:16 EDT - Adrián WATT, Merlyn Alaniz parathyroid cancer Procedure history: Colonoscopy (066166829) on 10/08/2011 at 56 Years. Colonoscopy (936190924) on 08/10/2011 at 56 Years. Tonsillectomy (011558889). Social History Social & Psychosocial Habits Alcohol [...] Scheduled Provider:William Brush MD Location:[facility] Appointment Type:[place] [address] Appointment Date:12/22/2021 08:00:00 AM Scheduled Provider:Luiz MORRISON MD Location:[facility] Appointment Type:URO Office Visit Diagnostic Tests Pending * UroVysion Fish and Urine Cyto ([facility]) 12/01/21 [facility] Hospital Discharge instructions Patient Education [...] [facility] [address], [place] [address]- Business (1) When: Unknown Comments:Office will call to schedule follow up [facility] Evaluation + Plan note Future Scheduled Tests Radiology* CT Urogram 11/04/21 [facility] [id number] Hospital Discharge instructions Patient Education 11/04/2021 11:30:36 [...] Follow these instructions at home: Medicines Take lfhq-tri-djkyjxy and prescription medicines only as told by [...] or the blood stops without treatment. Take iecp-vov-oopdpsb and prescription medicines only as told by your health care provider. Drink enough fluid to keep your urine clear or pale yellow. This information is not intended to replace advice given to you by your health care provider. Make sure you discuss any questions you have with your health care provider. Document Released: 07/25/2006 Document Revised: 12/19/2019 Document Reviewed: 08/27/2017 [employer] Patient Education 2019 [employer]. Follow Up Care 10/06/2021 15:23:45 With:Luiz MORRISON MD, URL Address: [facility] [address], [place] [phone] When: Unknown [facility] 01-08-2021 History of Past illness Narrative* Problem Noted Date Resolved Date Epiretinal membrane (ERM) of right eye 1 09/04/2021 documented as of this encounter (statuses as of 05/21/2022) [facility]ments Appointment Date:12/01/2021 08:00:00 AM Scheduled Provider: Location:[facility] Appointment Type:Urology FT Appointment Date:12/11/2021 08:20:00 AM Scheduled Provider:William Brush MD Location:[facility] [address] note Future Appointments Appointment Date:12/11/2021 08:20:00 AM Scheduled Provider:William Brush MD Location:[facility] Appointment Type:[place] [address] Appointment Date:12/22/2021 08:00:00 AM Scheduled Provider:Luiz MORRISON MD [facility] Future Appointments Appointment Date:12/11/2021 08:20:00 AM Scheduled Provider:William Bruhs MD Location:[facility] Appointment Type:[place] [address] Appointment Date:12/22/2021 08:00:00 AM Scheduled Provider:Luiz MORRISON MD [facility] Office Visit Diagnostic Tests Pending * Testosterone F&T 12[facility]10/21 [facility] App[facility]ments Appointment Date:12/22/2021 08:00:00 AM Scheduled Provider:Luiz MORRISON MD Location:[facility] Appointment Type:URO Office Visit Appointment Date:02/19/2022 12:30:00 PM Scheduled Provider: Location:[facility] Appointment Type:Surgery FT [facility] [place] Evaluation + Plan note Future Appointments Appointment Date:02/19/2022 12:30:00 PM Scheduled Provider: Location:[facility] Appointment Type:Surgery FT Diagnostic Tests Pending * PSA Total 12/22/21 [facility] Evaluation + Plan note Future Appointments Appointment Date:02/19/2022 12:30:00 PM Scheduled Provider: Location:[facility] Future Appointments Appointment Date:03/02/2022 09:45:00 AM Scheduled Provider: Location:[facility] Appointment Type:Urology FT Appointment Date:03/17/2022 02:00:00 PM Scheduled Provider:Luiz MORRISON MD Location:[facility] Appointment Type:URO Office Visit Appointment Date:06/25/2022 12:30:00 PM Scheduled Provider: Location:[facility] Future Appointments Appointment Date:03/17/2022 02:00:00 PM Scheduled Provider:Luiz MORRISON MD Location:[facility] Appointment Type:URO Office Visit Appointment Date:06/25/2022 12:30:00 PM Scheduled Provider: [facility] Type:Surgery FT Diagnostic Tests Pending * Prostate Histology ([facility]) 03[facility]02/22 [facility] Future App[facility]ments Appointment Date:06/25/2022 12:30:00 PM Scheduled Provider: Location:[facility] Appointment Type:Surgery FT [facility] Evaluation + Plan note Future Appointments Appointment Date:04/06/2022 02:30:00 PM Scheduled Provider:Milo Gonzales MD Location:[facility] Appointment Type:Pain Management - New (FT) Appointment Date:06/25/2022 12:30:00 PM Scheduled Provider: Location:[facility] Appointment Type:Surgery FT [facility] [place] Evaluation + Plan note Future Appointments Appointment Date:05/12/2022 08:00:00 AM Scheduled Provider:Luiz MORRISON MD Location:[facility] Appointment Type:URO Office Visit Appointment Date:06/25/2022 12:30:00 PM Scheduled Provider: Location:[facility] Appointment Type:Surgery [facility] Evaluation + Plan note Future Appointments Appointment Date:06/24/2022 12:30:00 PM Scheduled Provider: Location:[facility] Appointment Type:Surgery FT Appointment Date:08/11/2022 10:30:00 AM Scheduled Provider:Luiz MORRISON MD Location:[facility] Appointment Type:URO Office Visit [facility] Evaluation + Plan note Future Appointments Appointment Date:08/11/2022 10:30:00 AM Scheduled Provider:Luiz MORRISON MD Location:[facility] Appointment Type:[facility] App[facility]ments Appointment Date:11/03/2022 03:00:00 PM Scheduled Provider:Luiz MORRISON MD Location:[facility] Appointment Type:URO [facility] Future Appointments Appointment Date:06/15/2023 01:15:00 PM Scheduled Provider:Luiz MORRISON MD Location:[facility] Appointment Type:URO Office Visit Diagnostic Tests Pending * PSA Total 11/03/22 [facility] Evaluation + Plan note Future Appointments Appointment Date:06/15/2023 01:15:00 PM Scheduled Provider:Luiz MORRISON MD Location:[facility] Appointment Type:URO Office Visit Diagnostic Tests Pending * PSA Total 04/30/23 [facility] Future Appointments Appointment Date:06/20/2024 01:00:00 PM Scheduled Provider:Luiz MORRISON MD Location:[facility] Appointment Type:URO Office Visit Diagnostic Tests Pending * PSA Total 06/15/23 [facility] Evaluation + Plan note Future Appointments Appointment Date:06/20/2024 01:00:00 PM Scheduled Provider:Luiz MORRISON MD Location:[facility] [place] Appointment Type:URO [facility] note[facility] assessment information available [facility] Work Phone: evaluation note* Diagnosis Epiretinal membrane (ERM) of both eyes- Primary Floppy eyelid syndrome of both eyes Combined forms of age-related cataract of both eyes Other and combined forms of senile cataract Posterior vitreous detachment of both eyes Vitreous degeneration Vitreous floaters of both eyes [facility] Diagnosis Essential hypertension Unspecified essential hypertension Non-ischemic cardiomyopathy (CMS/HCC) Other primary cardiomyopathies Hyperlipidemia, unspecified hyperlipidemia type Obstructive sleep apnea, adult Morbid obesity with BMI of 40.0-44.9, adult ([facility]) documented in this encounter [facility] Work Phone: Evaluation note* Diagnosis Onset Date Resolution Status Hypertension acute Sleep apnea with use of cont inuous positive airway pressure (CPAP) acute Hypertension acute Sleep apnea with use of cont inuous positive airway pressure (CPAP) acute [facility] Work Phone: evaluqccxx note* Diagnosis Acute deep vein thrombosis (DVT) of distal vein of right lower extremity (CMS/HCC)- Primary 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 Cardiomyopathy, unspecified type (CMS/HCC) PVD (peripheral vascular disease) (CMS/HCC) Unspecified peripheral vascular disease Essential hypertension (CMS/HCC) Unspecified essential hypertension BMI 40.0-44.9, adult (CMS/HCC) Morbid obesity ([facility]/HCC) Morbid obesity documented in this encounter [facility]* Diagnosis Epiretinal membrane (ERM) of both eyes- Primary Floppy eyelid syndrome of both eyes Combined form of age-related cataract, both eyes Benign prostatic hyperplasia without lower urinary tract symptoms Anxiety disorder, unspecified type Essential hypertension Unspecified essential hypertension Mixed hyperlipidemia Obstructive sleep apnea syndrome Obstructive sleep apnea (adult) (pediatric) [facility] Diagnosis Onychomycosis- Primary Dermatophytosis of nail Pain in left toe(s) Pain in right toe(s) documented in this encounter [facility] HealthcareEvaluation note* Diagnosis Primary hypertension ([facility]/HCC) Unspecified essential hypertension Seasonal allergies Allergic rhinitis, cause unspecified documented in this encounter [facility] HealthcareEvaluation note* Diagnosis Acute deep vein thrombosis (DVT) of distal vein of right lower extremity (CMS/HCC)- Primary 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 Essential hypertension (CMS/HCC) Unspecified essential hypertension PVD (peripheral vascular disease) (CMS/HCC) Unspecified peripheral vascular disease BMI 40.0-44.9, adult (CMS/HCC) Morbid obesity (CMS/HCC) Morbid obesity documented in this encounter [facility] Healthcare[facility]* Diagnosis Acute deep vein thrombosis (DVT) of distal vein of right lower extremity (CMS/HCC)- Primary Cardiomyopathy, unspecified type (CMS/HCC) PVD (peripheral vascular disease) (CMS/HCC) Unspecified peripheral vascular disease documented in this encounter [facility] HealthcareHistory general Narrative - Reported* Type Description Date Medical History CARDIOMYOPATHY Medical History HYPERTENSION Medical History HYPOKALEMIA Medical History HYPERLIPIDEMIA Medical History FATTY LIVER Medical History ASTHMA Medical History SLEEP APNEA Medical History DEPRESSION Medical History RESTLESS LEG SYNDROME Surgical History HEMMRHOIDECTOMY 1990 Surgical History ANGIOGRAM [employer] Other Hospital course Narrative No data available for this section [facility] Discharge instructions No data available for this section [facility] No data available for this section [facility] (narrative)* Consultation (Routine) - Authorized Specialty Diagnoses / Procedures Referred By Supa t Referred To Contact Cardiology Diagnoses Essential hypertension Non-ischemic cardiomyopathy (CMS/HCC) Procedures Follow Up In Cardiology Delores Ac MD [address] [facility] [address] [place] [address] Delores Ac MD [address] [facility] [address] [place] [address] Referral ID Status Reason Start Date Expiration Date V isits Requested Visits Authorized [id number] Authorized 09/30/2023 09/29/2024 1 1 [facility] [...] on CPAP machine * Delores Ac MD, [facility] PHU LOPEZ is being seen for an annual follow-up of.* PHU LOPEZ is being seen for an annual follow-up of. * Patient is in the office for follow-up for the problems noted below. 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 He reports no symptoms of dyspnea [...] been very compliant * Delores Ac MD, [facility] * PHU LOPEZ is being [...] section and content) DATE CREATED AUTHOR 05/19/2018 [facility] DATE CREATED AUTHOR AUTHOR'S ORGANIZ ATION 03/14/2021 [facility] DATE CREATED AUTHOR AUTHOR'S ORGANIZ ATION 09/29/2022 [facility] DATE CREATED AUTHOR AUTHOR'S ORGANIZ ATION 09/29/2022 [employer] DATE CREATED AUTHOR AUTHOR'S ORGANIZ ATION 02/24/2023 [facility] DATE CREATED AUTHOR AUTHOR'S ORGANIZ ATION 04/17/2024 [facility] DATE CREATED AUTHOR AUTHOR'S ORGANIZ ATION 06/01/2024 [facility] DATE CREATED AUTHOR AUTHOR'S ORGANIZ ATION 06/03/2024 [facility] DATE CREATED AUTHOR AUTHOR'S ORGANIZ ATION 06/04/2024 [facility] d[facility] Specialists [facility] DATE CREATED AUTHOR AUTHOR'S ORGANIZ ATION 06/22/2024 [facility] <item> Privacy Markings (unrecogniz ed section [...] Active Burak Rangel MD Attending Provider Active Blockers Skiver Relationship Specialty Start Date End Date Terri Santos DO [address] [place] [address] PCP - General Family Medicine 04/11/18 Blockers Skiver Relationship Specialty Start Date End Date Terri Santos DO [facility] [address] [place] [address] PCP - General 09/11/20 Team Status: Inactive [...] May 07, 2024 End: May 07, 2024 Blockers Skiver Relationship Specialty Start Date End Date Terri Santos DO PCP - Medical [employer] 08/08/09 08/07/99 Liliana Waller MD [address] [place] [address] PCP - General Family Medicine 03/26/24 Blockers Skiver Relationship Specialty Start Date End Date Terri Santos DO PCP - Medical [employer] 08/08/09 08/07/99 Liliana Waller MD [address] [place] [address] PCP - General Family Medicine 03/26/24 Blockers Skiver Relationship Specialty Start Date End Date Terri Santos DO [address] [place] [address] PCP - General Family Medicine 04/11/18 Audra JordynJOSE [address] [place] [address] Referring Optometry 05/27/23 Blockers Skiver Relationship Specialty Start Date End Date Terri Santos DO PCP - Medical [employer] 08/08/09 08/07/99 Liliana Waller MD [address] [place] [address] PCP - General Family Medicine 03/26/24 Blockers Skiver Relationship Specialty Start Date End Date Terri Santos DO PCP - Medical [employer] 08/08/09 08/07/99 Liliana Waller MD [address] [place] [address] PCP - General Family Medicine 03/26/24 Blockers Skiver Relationship Specialty Start Date End Date Liliana Waller MD [address] [place] [address] PCP - General Family Medicine 03/26/24 Liliana Waller MD [address] [place] [address] PCP - Medical [employer] 08/08/09 08/07/99 Blockers Skiver Relationship Specialty Start Date End Date Liliana Waller MD [address] [place] [address] PCP - General Family Medicine 03/26/24 Liliana Waller MD [address] [place] [address] PCP - Medical [employer] 08/08/09 08/07/99 Blockers Skiver Relationship Specialty Start Date End Date Terri Santos DO PCP - Medical [employer] 08/08/09 08/07/99 Liliana Waller MD [address] [place] [address] PCP - General Family Medicine 03/26/24 Blockers Skiver Relationship Specialty Start Date End Date Terri Santos DO PCP - Medical [employer] 08/08/09 08/07/99 Liliana Waller MD [address] [place] [address] PCP - General Family Medicine 03/26/24 Goals [...] Reason Onset Date Comments Med Refill 06/13/2024 Reason Comments Med review Source Comments (unrecognize d section and content) In the event this informatio n is protected by the Federal Confidentiality of Alcohol and Drug Abuse Patient Records regulations: The Federal rules restrict any use of the information to criminally investigate or prosecute any alcohol or drug abuse patient.[facility] the event this information is protected by the Federal Confidentiality of Alcohol and Drug Abuse Patient Records regulations: The Federal rules restrict any use of the information to criminally investigate or prosecute any alcohol or drug abuse patient.[facility] FOR RECORDS PERTAINING TO PATIENTS WHO [...] BE BASED ON THE PRIMARY CLINICAL RECORDS. [employer] [facility]. provides no warranty or guarantee of the accuracy or completeness of information in this document.
[2024-07-27 11:20] VITALS: BP 127/73; PULSE 73; O2SAT 97
== END 2024-07-27 11:19 | disposition home or self-care (01) ==
LOC: VC 10:13
PROVIDERS: PCP Radiology Diagnostic Radiology; Visit Provider Radiology Diagnostic Radiology
DX: I83.813 Varicose veins of bilateral lower extremities with pain (principal)
CPT/HCPCS: 36466

== ENCOUNTER 2024-08-03 08:11 | Outpatient (OUT) | payer OTHER, SELFPAY ==
--- NOTE | 2024-08-03 07:33 | V.VEINS.HP ---
Varicose Veins Patient in today for follow up ultrasound post microfoam chemical ablation right leg Rahul Smith MD personally performed the services described in this documentation, as scribed by Madai Gage RVT, RDMS in my presence and it is both accurate and complete. Madai Smith RVT, RDMS, am scribing for, and in the presence of, Dr. Rahul Pedro and in the presence of the patient. thigh: bilateral, knee: bilateral, calf: bilateral, ankle: bilateral and delaney: bilateral aching and dull 3 2 years Worsened in recent months: Yes walking elevating extremities and compression stockings Reports heaviness, restless legs, limb pain, edema and leg edema History of lower extremity trauma: No Superficial thrombophlebitis: No Family history of varicose veins: no Has patient had previous lower extremity venous surgery: No Patient has previously received the following treatment(s) for lower extremity varicose veins: Reports none Does patient have a history of : not applicable Does patient intend to have future pregnancies: not applicable Has patient had lower extremity venous scan with relux testing: Yes Support hose used: Yes Problems walking or doing physical activity: Yes How does it affect you: unable to walk long distances Do you walk much: No Do you stand much: Yes Medication compliance: good Review of Systems ROS Narrative Rahul Smith MD personally performed the services described in this documentation, as scribed by Madai Gage RVT, RDMS in my presence and it is both accurate and complete. Madai Smith RVT, RDMS, am scribing for, and in the presence of, Dr. Rahul Pedro and in the presence of the patient. [facility] Medical History (Updated 06/01/24 @ 07:33 by Jane Farris) Phlebitis and thrombophlebitis of superficial vessels of left lower extremity ?I80.02 - Phlebitis and thrombophlebitis of superficial vessels of left lower extremity (ICD-10) Phlebitis and thrombophlebitis of superficial vessels of right lower extremity ?I80.01 - Phlebitis and thrombophlebitis of superficial vessels of right lower extremity (ICD-10) Hemorrhoids, internal ?K64.8 - Other hemorrhoids (ICD-10) Pain due to varicose veins of both lower extremities ?I83.813 - Varicose veins of bilateral lower extremities with pain (ICD-10) Tinea pedis ?B35.3 - Tinea pedis (ICD-10) Sleep apnea ?G47.30 - Sleep apnea, unspecified (ICD-10) Restless leg ?G25.81 - Restless legs syndrome (ICD-10) Onychomycosis ?B35.1 - Tinea unguium (ICD-10) Obesity ?E66.9 - Obesity, unspecified (ICD-10) Left ventricular failure ?I50.1 - Left ventricular failure, unspecified (ICD-10) Hypokalemia ?E87.6 - Hypokalemia (ICD-10) Hyperglycemia ?R73.9 - Hyperglycemia, unspecified (ICD-10) Hyperlipemia ?E78.5 - Hyperlipidemia, unspecified (ICD-10) Accelerated essential hypertension ?I10 - Essential (primary) hypertension (ICD-10) Elevated PSA ?R97.20 - Elevated prostate specific antigen [PSA] (ICD-10) Cardiomyopathy ?I42.9 - Cardiomyopathy, unspecified (ICD-10) Anxiety ?F41.9 - Anxiety disorder, unspecified (ICD-10) Surgical History (Updated 07/27/24 @ 11:22 by Gerald Lopez) S/P sclerotherapy of varicose veins ?Z98.890 - Other specified postprocedural states (ICD-10) ?Z86.79 - Personal history of other diseases of the circulatory system (ICD-10) Status post laser ablation of incompetent vein ?Z98.890 - Other specified postprocedural states (ICD-10) Status post laser ablation of incompetent vein ?Z98.890 - Other specified postprocedural states (ICD-10) Status post laser ablation of incompetent vein ?Z98.890 - Other specified postprocedural states (ICD-10) Status post laser ablation of incompetent vein ?Z98.890 - Other specified postprocedural states (ICD-10) S/P TURP ?Z90.79 - Acquired absence of other genital organ(s) (ICD-10) Family History (Updated 04/06/24 @ 10:04 by Destini Carlin RN) Other Family history of CHF (congestive heart failure) Family history of cancer Family history of hypertension Family history of myocardial infarction Social History (Updated 04/06/24 @ 10:05 by Destini Carlin RN) Within the past year, how often did you have a drink containing alcohol: never Score interpretation: A score less than 4 is consistent with normal alcohol consumption. Smoking status: Never smoker Non-prescribed substance use: denies use Meds Home Medications and Allergies Home Medications ?Medication ?Instructions ?Recorded ?Confirmed ?Type amiloride 5 mg tablet 5 mg PO DAILY 04/06/24 04/06/24 History amlodipine 10 mg tablet 10 mg PO DAILY 04/06/24 04/06/24 History aspirin 325 mg tablet 325 mg PO DAILY 04/06/24 04/06/24 History carvedilol 25 mg tablet (Coreg) 25 mg PO BID 04/06/24 04/06/24 History doxazosin 4 mg tablet (Cardura) 4 mg PO QPM 04/06/24 04/06/24 History finasteride 5 mg tablet 5 mg PO DAILY 04/06/24 04/06/24 History hydralazine .Route DAILY 04/06/24 History hydrochlorothiazide 25 mg tablet 25 mg PO DAILY 04/06/24 04/06/24 History losartan 100 mg tablet 100 mg PO DAILY 04/06/24 04/06/24 History lovastatin 30 mg PO QAM 04/06/24 04/06/24 History montelukast 10 mg tablet 10 mg PO DAILY 04/06/24 04/06/24 History niacin 500 mg capsule,extended 500 mg PO DAILY 04/06/24 04/06/24 History release paroxetine HCl 20 mg tablet 20 mg PO DAILY 04/06/24 04/06/24 History potassium chloride 10 mEq 10 meq PO DAILY 04/06/24 04/06/24 History tablet,extended release (Klor-Con) apixaban 5 mg tablet (Eliquis) 5 mg PO BID 05/04/24 05/04/24 History Allergies Allergy/AdvReac Type Severity Reaction Status Date / Time clarithromycin Allergy Unknown Unknown Verified 04/06/24 09:39 Exam Narrative Exam Narrative: IRahul MD personally performed the services described in this documentation, as scribed by Madai Gage RVT, RDMS in my presence and it is both accurate and complete. IMadai RVT, RDMS, am scribing for, and in the presence of, Dr. Rahul Pedro and in the presence of the patient. Results Imaging Venous US: Radiologist's impression: The ultrasound demonstrates Varithena induced thrombus visualized at mid/med calf and prox/med calf. Assessment and Plan Assessment and Plan (1) Phlebitis and thrombophlebitis of superficial vessels of right lower extremity: Plan Patient in today for follow up ultrasound of lower extremity following treatment of Varithena/microfoam completed on 07/27/24. IRahul MD personally performed the services described in this documentation, as scribed by Madai Gage RVT, RDMS in my presence and it is both accurate and complete. Madai Smith RVT, RDMS, am scribing for, and in the presence of, Dr. Rahul Pedro and in the presence of the patient.
--- NOTE | 2024-08-03 07:35 | W.VEIN ---
Discharge Plan Discharge Disposition: Home, Self-Care Outpatient Diagnostics: VC INJ Foam Sclerosant WUJassi BOX PERSON (Routine) Timeframe: 2 Weeks Facility: [facility] - Location: [facility] Ordered By: Rahul Pedro Follow Up Appointments: 08/24/24 Plan of Treatment: Varithena/microfoam chemical ablation left leg. Print Language: Greenlandic Discharge Date/Time: 08/03/24 08:57
--- NOTE | 2024-08-03 08:13 | VEIN_ITS ---
Patient Name: RACHEL NGUYEN MR#: [id number] : 1955 Exam Date: 08/03/2024 Ordering Doctor: DR LUIS MALIK M.D. RADIOLOGY REPORT PROCEDURE: VC EXT VENOUS RT LMTD COMPARISON: VC EXT VENOUS RT LMTD, 06/22/2024. INDICATIONS: I80.01 - Phlebitis and thrombophlebitis of superficial ve... TECHNIQUE: Lower extremity niño scale and Duplex Doppler evaluation of the deep venous system from the inguinal ligament through the calf veins. FINDINGS: REGION: Right lower extremity. THROMBI: Negative for DVT. Varithena induced thrombus visualized at mid/med calf and prox/med calf. COMPRESSIBILITY: Non-compressible segments corresponding to thrombus FLOW: Areas of no flow corresponding to thrombus OTHER: No patent varicose veins remain. CONCLUSION: 1. Successful post ablation occlusion of right leg treated branch saphenous varicosities. Dictated by: Rahul Pedro M.D. on 08/03/2024 at 08:50 Approved by: Rahul Pedro M.D. on 08/03/2024 at 08:51
--- NOTE | 2024-08-03 08:13 | VEIN_ITS ---
Patient Name: RACHEL NGUYEN MR#: [id number] : 1955 Exam Date: 08/03/2024 Ordering Doctor: DR LUIS MALIK M.D. RADIOLOGY REPORT PROCEDURE: [facility] EST LMTD [facility] - OFFICE VISIT FOLLOW UP COMPARISON: [facility], [address] [place], 07/20/2024. PROGRESS NOTES: The patient reports improvement in leg symptoms. There has been interval reduction in varicosities. The patient has followed our recommendations to walk 20-30 minutes once or twice per day since the procedure. Physical exam demonstrates decrease in varicosities of the leg. Persistent varicosities are identified along the left leg. Persistent asymmetrically greater swelling of right calf compared to left, but improving. Review of the ultrasound performed the same day demonstrates occlusive thrombus extending throughout the treated vein(s), see separate report, consistent with a successful ablation. No thrombus extending into or beyond the saphenofemoral junction. The patient expressed a desire to proceed with treatment of left leg incompetent varicosities. The patient was informed that treatment was a process and would require 1-2 procedures/sessions. VEIN/[facility] EST LMTD IMPRESSION: 1. 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 2. 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 PLAN: 1. Microfoam chemical ablation of left leg incompetent branch saphenous varicosities. Nurse notes, history and physical were reviewed and confirmed, see attached forms. The nurse was present throughout the physical exam and consultation Dictated by: Rahul Pedro M.D. on 08/03/2024 at 08:52 Approved by: Rahul Pedro M.D. on 08/03/2024 at 08:53
--- OUTSIDE RECORDS SUMMARY | 2024-08-03 08:28 | XMS_ITS | CCD ---
Author Organization [facility] CliniSymn Care Team Providers Care Manager Procurement Name Role Phone Pocarrilloalska Danyell Unavailable Unavailable Pocarrilloalska, Danyell Unavailable Unavailable [facility] Unavailable Unavailable Omar Danyell Unavailable Unavailable Mecca Nelsonaret Unavailable Unavailable Terri Santos Unavailable Unavailable Terri Santos Unavailable Chriss Marie Unavailable Unavailable Terri Santos Unavailable Unavailable Unavailable Terri Santos Primary Care Physician MD Terri Santos Primary Care Provider MD Luiz Morrison Attending Provider [phone] MD Burak Rangel Attending Provider [phone] Burak Rangel Unavailable MD Terri Santos Primary Care Provider MD Luiz Morrison Attending Provider Terri Santos DO Primary Care Provider Sarah, Dr. Terri Pearce Primary Care Unava ilpascale Ac, Dr. Delores Fajardo Referring Jessie vailable Weston, Dr. Delores Fajardo Attending Jessie vailable Weston, Dr. Delores Fajardo Attending Jessie vailable Sarah, Dr. Terri Pearce Primary Care Unava ilpascale Ac, Dr. Delores Fajardo Referring Jessie vaMD Terri Garcia Primary Care Provider MD Burak Rangel Attending Provider Allsop DO, Terri Portia Primary Care Provider DELORES AC Attending Unavailable ALLSOPTERRI Primary Care Unavailab le Allsop DO, Terri Pfeiffer Unavailable UnavailLiliana Pond MD Primary Care Provider Liliana Waller Primary Care Physician Luiz MORRISON Attending Unavailable Luiz MORRISON Admitting Unavailable Allsop DO, Terri Pearce Primary Care Provider Zhu ODJordyn Unavailable ALLSOP, TERRI PEARCE Primary Care Unavailab christiano DECKERJOSSELIN KAUFMAN Referring Unavailable DECKERJOSSELIN Attending Unavailable Allsop, Terri Pfeiffer Referring Unavailable Allsop, Terri Pfeiffer Admitting Unavailable Allsop, Terri Pfeiffer Attending Unavailable Luiz MORRISON Admitting Unavailable MORRISONLuiz Attending Unavailable Allsop, Terri Pfeiffer Attending Unavailable Allsop, Terri Pfeiffer Admitting Unavailable MORRISONLuiz Attending Unavailable Liliana Waller MD Unavailable Luiz Morrison Attending Unavailable Luiz Morrison Admitting Unavailable Liliana Waller Primary Care Unavailable ADAM JACK Attending Unavailable ALLSOP, TERRI Pfeiffer Attending Unavailable DOLCEADAM Attending Unavailable ALLSOP, TERRI Pfeiffer Attending Unavailable ALLSOP, TERRI Pfeiffer Attending Unavailable DOLCEADAM Attending Unavailable DOLADAM HOLLINS Attending Unavailable ELYSSA ADLER Attending Unavailable LILIANA WALLER Attending Unavailable DOLADAM HOLLINS Attending Unavailable LILIANA WALLER Attending Unavailable Allergies Allergy Classification Reported Allergen(s) Allergy Type Date of Onset Reaction(s) Facility Macrolides (antibiotic) (1 source) Clarithromycin Drug Allergy Unknown [facility] (1 source) No Known Medication Allergies; Translations: [No Known Medication Allergies] Propensity to adverse reactions to drug (disorder) [facility] (9 sources) shellfish, unspecified Allergy to substance (finding) [facility] 600 DO Work Phone: (16 sources) Clarithromycin; Translations: [clarithromycin] Drug Allergy Unknown [facility] [place] (2 sources) Shellfish; Translations: [SHELLFISH CONTAINING PRODUCTS] Drug Allergy 3 Swelling [facility] (2 sources) Shellfish; Translations: [SHELLFISH DERIVED] Propensity to adverse reactions 4 Other [facility] (13 sources) Clarithromycin Allergy to substance 3 Unknown [facility] Work Phone: Medications Current Medications Medication Drug Class(es) Dates Sig (Normalized) Sig (Original) acetaminophen 325 mg / HYDROcodone bitartrate 7.5 mg oral tablet (2 sources) Opioid Agonist Start: 02-12-2022 take 1 tablet by mouth once [place] 325 mg-7.5 mg oral tablet 1 tab(s), Oral, Once, 1 tab(s), Refill(s) 0, Take 1 hour prior to procedure. Don't drive or operate machinery while taking this medication., [facility] 1986, 178, cm, 12/22/21 8:18:00 EDT, Height/Length Dosing, 137.1, kg, 12/22/21 8:17:00 EDT,... Start Date: 02/12/22 Status: Ordered aMILoride hydrochloride 5 mg oral tablet (20 sources) Potassium-sparin g Diuretic Start: 04-13-2022 take 5 mg by mouth twice daily Amiloride Active 5 MG PO Twice daily April 13, 2022 12:00am Start: 06-27-2019 take 2 tablets by [facility] once daily aMILoride (MIDAMOR) 5 mg tablet TAKE 2 TABLETS BY MOUTH ONCE DAILY FOR 90 DAYS 1 06/27/2019 Active End: 09-30-2023 take 1 tablet by mouth once daily aMILoride (Midamor) 5 mg tablet Take 1 tablet (5 mg) by mouth once daily. 0 09/30/2023 Discontinued (Other) aMILoride HCl Ac tive Comment on above: TAKE 2 TABLETS BY [facility] ONCE DAILY FOR 90 DAYS [...] (15 sources) Factor Xa Inhibitor Start: 04-06-20 24 take 1 tablet by mouth in the morning apixaban (Eliquis) 5 MG tablet Indications: Blood clot in vein Take 1 tablet (5 mg) by mouth in the morning and 1 tablet (5 mg) before bedtime. 60 tablet 5 04/06/2024 Active {1 (Ascorbic Acid 7540 MG / POLYETHYLENE GLYCOL 3350 85516 MG / Potassium Chloride 1200 MG / Sodium Ascorbate 87358 MG / Sodium Chloride 3200 MG Powder for Oral Solution) / 1 (POLYETHYLENE GLYCOL 3350 365064 MG / Potassium Chloride 1000 MG / [...] Quantity: 0 Refills: 0 Ordered: 07-Jul-2020 Petar uW Generic Substitution Allowed Comment on above: Take [...] extended release oral tablet (1 source) Uncompetitive N-bzmzgq-Y-aspartate Receptor Antagonist, Sigma-1 Agonist Start: End: take [...] oral capsule (7 sources) Tetracycline-class Drug Start: 09-20-2 022 take 100 mg by mouth twice daily Doxycycline Hyclate Active 100 MG PO Twice daily 27 05April 27, 2022 12:00am Start: 12-01-2021 End: 12-22-2021 take 1 capsule by mouth twice daily doxycycline hyclate 100 mg Cap 100 mg = 1 cap(s), Oral, BID, X 21 day(s), # 42 cap(s), Refills(s) 0, Pharmacy: [facility] 1986, 178, cm, 11/26/21 12:38:00 [...] Daily, # 90 tab(s), Refills(s) 3, Pharmacy: [facility] 1986, 178, cm, 06/15/23 13:22:00 EST, Height/Length Dosing, [...] Start: 06-12-2019 take 1 tablet by [facility] once daily lovastatin (MEVACOR) 20 mg tablet TAKE 1 & 1 2 (ONE & ONE HALF) TABLETS BY MOUTH ONCE DAILY 9 06/12/2019 Active Start: 09-23-2017 take 3 tablets by mo [facility] once daily lovastatin 10 mg Tab 30 mg = 3 tab(s), Oral, Daily, Refills(s) 0 Start Date: 09/23/17 Status: Ordered take 2 tablets by mo [facility] every other day lovastatin [...] Refills: 0 Ordered: 31-Aug-2021 DO Active omega 6-phr-jpp-fish oil 360 mg-108 mg- 180 mg-1,200 mg capsule (1 source) End: 09-30-2023 take 1 capsule by mouth once daily omega 1-fto-rpi-fish oil 360 mg-108 mg- 180 mg-1,200 mg capsule Take 1 capsule by mouth once daily. 0 09/30/2023 Discontinued (Other) Fortuna-3 Fatty Acids (3 sources) Start: 04-13-2022 take 2000 mg by mouth once daily at bedtime Fortuna-3 Fatty Acids Active 2000 MG PO Daily at bedtime April 13, 2022 12:00am Fortuna-3 Fatty Acids (Fortuna 3 Fish Oil) Capsule (2 sources) Start: 04-13-2022 take 1 capsule by mouth once daily at bedtime Fortuna-3 Fatty Acids (Fortuna 3 Fish Oil) Capsule Active 2000 MG [...] 12:00am Start: 10-07-2011 take 7 tablets by [facility] once daily Klor-Con 10 mEq 70 mEq = 7 tab(s), Oral, Daily, # 210, Refills(s) 0, Prophylaxis Start Date: 10/07/11 Status: Ordered Start: 10-07-2011 take 7 tablets by mo [facility] once daily Klor-Con 10 mEq 70 mEq = 7 tab(s), Oral, Daily, # 210, Refills(s) 0, Prophylaxis Start Date: 10/07/11 Status: Ordered Start: 10-07-2011 take 7 tablets by mo [facility] once daily Klor-Con 10 [...] q4wk, # 2 mL, Refills(s) 4, Pharmacy: [facility] 1985, 177, cm, 08/28/20 9:27:00 [...] procedure, # 2 tab(s), Refills(s) 0, Pharmacy: [facility] 1986, 178, cm, 11/04/21 10:45:00 EDT, Height/Length Dosing, 137.1, kg, 11/04/21 10:45:00 EDT, Weight Dosing Start Date: 11/04/21 Status: Ordered Start: 07-07-2020 End: 07-20-2020 take 1 tablet by mouth every twelve hours ciprofloxacin 500 mg oral tablet ; 1 tab(s) orally every 12 hours Quantity: 28 Refills: 0 Ordered: 07-Jul-2020 YvesEan shaikhhel Start: 07-Jul-2020 End: 20-Jul-2020 Status: Other Generic [...] 0 Refills: 0 Ordered: 31-Aug-2021 DO Active Fortuna-3 CAPS (8 sources) Fortuna-3 CAPS LADONNA E DIRECTED. Quantity: 0 Refills: [...] sources) Long-term current use of anticoagulant; Translations: [long-term (current) use of anticoagulants] Onset: 4 05-10-2024 [...] 2 Resolved: 2 Chronic Residual codes; unclassified (2 sources) Sleep [...] (20 sources) Patient encounter status 12-11-2021 Unclassified (5 sources) History of clinical finding [...] Onset: 01-04-2023 01-04-2023 Episodic Other skin disorders (13 sources) Skin [...] Test Name Value Interpretation Reference Range Facility MR prostate wo/w conon 07-25 MR prostate wo/w con [facility] [place] [address] [place] [address] MRI Report Signed Patient: Phu Lopez MR#: [id number] : 1955 Acct:[id number] Age/Sex: 69 / M ADM Date: 07/24/24 Loc: Room: Type: [facility] Attending Dr: Luiz Morrison MD Copies to: Luiz Morrison MD Ordering Provider: Luiz Morrison MD Date of Service: 07/24/24 MR/MR prostate wo/w con: Z87.898 EXAMINATION: MR prostate wo/w con HISTORY: Elevated PSA. COMPARISON: Prostate MRI 01/21/2022 TECHNIQUE: Multiparametric imaging of the prostate gland was performed with IV contrast. FINDINGS: Prostate Dimensions: 5.1 x 4.8 x 6.6 cm Prostate Volume: 84 mL. Peripheral Zone: Heterogenous inT2 signal suggestive of prior prostatitis. A focal area of T2 hypointensity is identified involving the posterior aspect of the left peripheral zone at the level of the mid gland measuring 1.4 x 1.0 cm with associated restricted diffusion and low ADC value. Please see series 4 image 20, series 650 image 18 and series 600 image 18. This is grossly similar to the prior study. An additional focal area of T2 hypointensity is identified involving the posterior aspect of the left peripheral zone at the level of the base with associated restricted diffusion and low ADC value measuring 1.8 x 1.0 cm. Please see series 4 image 24, series 650 image 22 series 600 image 22 . This appears to be less conspicuous when compared to the prior study but still appears to be present. Previously identified T2 hypointensity involving the right peripheral zone at the level of the mid gland appears to have improved since the prior study with residual area noted measuring 5 x 5 mm with associated restricted diffusion and low ADC value. Please see series 4 image 20, series 650 image 18 and series 600 image 18. No gross extracapsular extension is seen involving any of the lesions. Central/Transitional Zone: BPH changes. Seminal Vesicles: Unremarkable Neurovascular bundles: Unremarkable. Lymphadenopathy: Degree of bilateral external lymphadenopathy is grossly similar to the prior study. Largest measuring 1.3 cm in short axis. Bladder: No focal lesion. Bowel: The visualized bowel is without acute abnormality. Peritoneal Cavity: No free fluid. Bones: Stable T1 hypointense lesion involving the left iliac bone. MR/MR prostate wo/w con IMPRESSION: 2 of the 3 suspected areas involving the peripheral zone on the prior study have improved or is less conspicuous when compared to the prior study. No definitive MRI evidence of progression of disease is seen. The degree of bilateral external iliac lymphadenopathy is similar to the prior MRI study. Stable T1 hypointense lesion involving the left iliac bone. Impression dictated by: Joaquin Araiza Jr., Benitez07/25/2024 9:30 AM Dictation Location: [place] [address] Transcribed By: [facility] 07/25/24929 Dictated By: Joaquin Araiza Jr, DO 07/25/2414 Signed By: 07/25/24929 Normal [facility] ISTAT XRay CREon 07-24-2024 Creatinine [Mass/Vol] 0.7 mg/dL Normal 0.6-1.3 [facility] Comment on above: Result Comment: ER/E SD physician is notified/shown all ISTAT results. Critical values may be confirmed by laboratory testing if deemed necessary by ER attending doctor. Performed By: #### I SCRE #### [address] ISTAT GFR >60.0 Normal [facility] Comment on above: Result Comment: PERF ORMED BY: [place] [address] PATHOLOGIST OUTSIDE MACHINIST SUPERVISOR MAY AYERS M.D. Performed By: #### I SCRE #### [address] [place] [address] [facility] Ambulatory Visit Summaryon 1 08-20-2023 Ambulatory Visit [...] [facility] [address], [place] [address]- Medications What How Much When Why Instructions [...] Intramuscular Every (more content not included)... Normal [facility] Ambulatory Visit Summary Ambulatory Visit Summary [...] [facility] [address], [place] [address]- Medications What How Much When Why Instructions [...] Intramuscular Every (more content not included)... Normal [facility] Urology Office/Clinic Noteon 06-20-2024 Urology Office/Clinic Note Urology Office/Clinic Note Chief Complaint 1 year follow up HPI Staff 1 year follow up w/PSA & JEANNA Previous PSA 04/30/23 - 0.50, Current PSA 0.6 05/25/24-[facility] Previous DX: BPH with urinary obstruction, elevated [...] started Finasteride between 10/2021 and 12/202112/10/21 - .2 *presumed lab error 12/22/21 - 5.9 (11.8) [...] management with Dr. Velasquez. 4. 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 Elevated risk of periop complications. Follow-up With When Contact Information TAMIKO SAEZ, Luiz Jackson, URL [facility] [address], [place] [address]- Additional Instructions: f/u pending MRI prostate Patient [...] urinary obs (more content not included)... Normal [facility] Comment on above: Result Comment: Elec tronically Signed By: Luiz MORRISON MD\.br\Date and Time Signed: 06/20/24 13:41 EST\.br\Electronically Co-Signed By: Angelica Colmenares\.br\Date and Time Co-Signed: 06/20/24 13:39 EST FUNDUS PHOTOS OU (BOTH EYES) on 06-01-2024 [facility] Radiology Study observation (narrative) [facility] OCT MACULA CIRRUS OU (BOTH E YES)on 06-01-2024 [facility] Radiology Study observation (narrative) [facility] CHEMISTRYOrdered By: SYSTEM SYSTEM on 05-25-2024 [...] for this result was chemiluminescence using [employer]'s Access Hybritech PSA reagent. PSA Totalon 05-25-2024 Prostate specific Ag [Mass/Vol] 0.6 ng/mL Normal 0.1-3.5 [facility] Comment on above: Result Comment: The concentration of PSA determined by different manufacturers can vary due to differences in assay methods and reagent specificity. Values obtained from different assay methods cannot be used interchangeably. The methodology used for this result was chemiluminescence using [employer]'s Access Hybritech PSA reagent. Performed By: #### 1 [id number] #### [facility] [address] [place] [address] LE Venous Duplex Righton 11-29-2023 LE Venous [...] M.D. Transcribed by: REGLA Technologist: HW Normal [facility] Consent for Treatmenton 11-06 Consent for Treatment [id number] 0TIFF Normal [facility] Physician Orderon 11-18-2023 Physician Order [id number]#1.0 0TIFF Normal [facility] CBC w/ Auto Diffon 4 Basophils/100 WBC (Bld) 0.8 % Normal 0.0-2.0 [facility] Comment on above: Performed By: #### 2 443856, [id number], 0997871, 8746666 #### [facility] [address] [place] [address] Basophils/Leukocytes Auto (Bld) [Pure # fraction] 0.1 E9/L Normal 0.0-0.2 [facility] Comment on above: Performed By: #### 2 947942, 13329249, 0038794, 6652556 #### [facility] [address] [place] [address] Eosinophils (Bld) [#/Vol] 0.3 E9/L Normal 0.0-0.5 [facility] Comment on above: Performed By: #### 2 216494, 28421251, 2368432, 3418595 #### [facility] [address] [place] [address] Eosinophils/100 WBC (Bld) 3.4 % Normal 0.0-8.0 [facility] Comment on above: Performed By: #### 2 587546, 95141449, 9123799, 3556142 #### [facility] [address] [place] [address] Erythrocyte distribution width (RBC) [Ratio] 13.6 % Normal 10.9-14.2 [facility] Comment on above: Performed By: #### 2 808238, 23801142, 9879179, 1379350 #### [facility] [address] [place] [address] Hematocrit (Bld) [Volume fraction] 39.9 % Normal 37.7-49.0 [facility] Comment on above: Performed By: #### 2 147883, 12328981, 9668244, 8795887 #### [facility] [address] [place] [address] Hemoglobin (Bld) [Mass/Vol] 13.7 g/dL Normal 13.5-17.5 [facility] Comment on above: Performed By: #### 2 402119, 19387677, 1191013, 9823948 #### [facility] [address] [place] [address] Lymphocytes (Bld) [#/Vol] 1.5 E9/L Normal 1.0-4.0 [facility] Comment on above: Performed By: #### 2 650524, 09909224, 9956562, 8907539 #### [facility] [address] [place] [address] Lymphocytes/100 WBC (Bld) 20.2 % Normal 14.0-50.0 [facility] Comment on above: Performed By: #### 2 137873, 11841310, 2586146, 2039064 #### [facility] [address] [place] [address] MCH (RBC) [Entitic mass] 30.4 pg Normal 27.0-34.0 [facility] Comment on above: Performed By: #### 2 807526, 01908900, 1492333, 2666046 #### [facility] [address] [place] [address] MCHC (RBC) [Mass/Vol] 34.3 g/dL Normal 31.4-36.0 [facility] Comment on above: Performed By: #### 2 356048, 97315382, 5566016, 8291328 #### [facility] [address] [place] [address] MCV (RBC) [Entitic vol] 88.6 fL Normal 80.0-100.0 [facility] Comment on above: Performed By: #### 2 120817, 93562379, 6821946, 6741514 #### [facility] [address] [place] [address] Monocytes (Bld) [#/Vol] 0.7 E9/L Normal 0.2-1.0 [facility] Comment on above: Performed By: #### 2 061401, 51272120, 8453825, 4226064 #### [facility] [address] [place] [address] Neutrophils (Bld) [#/Vol] 5.0 E9/L Normal 2.0-7.5 [facility] Comment on above: Performed By: #### 2 924776, 94148123, 9641786, 0155116 #### [facility] [address] [place] [address] Neutrophils/100 WBC (Bld) 66.1 % Normal 36.0-75.0 [facility] Comment on above: Performed By: #### 2 321994, 34341927, 5967550, 5385901 #### [facility] [address] [place] [address] Platelet mean volume (Bld) [Entitic vol] 9.1 fL Normal 6.4-10.8 [facility] Comment on above: Performed By: #### 2 689566, 90873935, 1114907, 7630330 #### [facility] [address] [place] [address] Platelets (Bld) [#/Vol] 216.0 E9/L Normal 150.0-500.0 [facility] Comment on above: Performed By: #### 2 077134, 44134689, 6414775, 7921605 #### [facility] [address] [place] [address] RBC (Bld) [#/Vol] 4.5 E12/L Normal 4.3-5.9 [facility] Comment on above: Performed By: #### 2 987535, 94612361, 6667153, 9293608 #### [facility] [address] [place] [address] WBC corrected for nucl RBC Auto (Bld) [#/Vol] 7.5 E9/L Normal 4.0-11.0 [facility] Comment on above: Performed By: #### 2 859229, 76932234, 5946476, 0457757 #### [facility] [address] [place] [address] CHEMISTRYOrdered By: SYSTEM SYSTEM on 10-21-2023 Albumin [...] 10-21-2023 Albumin [Mass/Vol] 4.3 g/dL Normal 3.3-5.0 [facility] Comment on above: Performed By: #### 2 438919, 01567315, 0123656, 9638781 #### [facility] [address] [place] [address] Albumin/Globulin (S) [Mass conc ratio] 1.7 Normal 1.1-2.2 [facility] Comment on above: Performed By: #### 2 361779, 70667583, 6668470, 5676846 #### [facility] [address] [place] [address] ALP [Catalytic activity/Vol] 66 Int._Unit/L Normal 21-98 [facility] Comment on above: Performed By: #### 2 469074, 45990737, 1829157, 9651708 #### [facility] [address] [place] [address] ALT No additional P-5'-P [Catalytic activity/Vol] 17 Int._Unit/L Normal 6-46 [facility] Comment on above: Performed By: #### 2 642835, 57835798, 1272044, 6846715 #### [facility] [address] [place] [address] Anion gap [Moles/Vol] 13 mmol/L Normal 6-16 [facility] Comment on above: Performed By: #### 2 200701, 99010346, 0669990, 3501414 #### [facility] [address] [place] [address] AST [Catalytic activity/Vol] 17 Int._Unit/L Normal 5-43 [facility] Comment on above: Performed By: #### 2 324826, 45788674, 1130461, 1724778 #### [facility] [address] [place] [address] Bilirubin [Mass/Vol] 0.9 mg/dL Normal 0.0-1.1 [facility] Comment on above: Performed By: #### 2 514347, 62239226, 2740083, 0238742 #### [facility] [address] [place] [address] Calcium [Mass/Vol] 8.7 mg/dL Low 8.9-11.1 [facility] Comment on above: Performed By: #### 2 502078, 73439330, 1205802, 8789304 #### [facility] [address] [place] [address] Chloride [Moles/Vol] 104 mmol/L Normal 101-111 [facility] Comment on above: Performed By: #### 2 231282, 45170895, 0543997, 9870211 #### [facility] [address] [place] [address] CO2 [Moles/Vol] 27 mmol/L Normal 21-31 [facility] Comment on above: Performed By: #### 2 440112, 40225097, 2999347, 5501962 #### [facility] [address] [place] [address] Creatinine [Mass/Vol] 0.6 mg/dL Normal 0.5-1.3 [facility] Comment on above: Performed By: #### 2 607299, 58840787, 6622800, 9069978 #### [facility] [address] [place] [address] Globulin (S) [Mass/Vol] 2.6 g/dL Normal 1.4-4.0 [facility] Comment on above: Performed By: #### 2 164390, 92676924, 8809526, 7246454 #### [facility] [address] [place] [address] Glucose [Mass/Vol] 94 mg/dL Normal 55-199 [facility] Comment on above: Performed By: #### 2 487235, 84418675, 5890793, 8281652 #### [facility] [address] [place] [address] Potassium [Moles/Vol] 3.4 mmol/L Low 3.5-5.3 [facility] Comment on above: Performed By: #### 2 873931, 30512833, 0930436, 4692193 #### [facility] [address] [place] [address] Protein [Mass/Vol] 6.9 g/dL Normal 6.0-7.8 [facility] Comment on above: Performed By: #### 2 804278, 69362429, 6018519, 6201625 #### [facility] [address] [place] [address] Sodium [Moles/Vol] 141 mmol/L Normal 135-145 [facility] Comment on above: Performed By: #### 2 097632, 58160682, 1811037, 0372013 #### [facility] [address] [place] [address] Urea nitrogen [Mass/Vol] 9 mg/dL Normal 5-21 [facility] Comment on above: Performed By: #### 2 249795, 05485839, 8299131, 0870542 #### [facility] [address] [place] [address] Urea nitrogen/Creatinine [Mass ratio] 15 No Units Normal 10-20 [facility] Comment on above: Performed By: #### 2 073534, 15320879, 3115964, 1760170 #### [facility] [address] [id number] Consent for Treatmenton 10-06 Consent for Treatment [id number] 0TIFF Normal [facility] HEMATOLOGYOrdered By: SYSTEM SYSTEM on 10-21-2023 [...] 10-21-2023 Cholesterol [Mass/Vol] 172 mg/dL Normal 120-200 [facility] Comment on above: Performed By: #### 2 [id number], [id number], [id number], [id number] #### [facility] [address] [place] [address] Cholesterol in HDL [Mass/Vol] 32 mg/dL Invalid Interpretation Code [facility] Comment on above: Result Comment: '>= 60 LOW RISK' '<= 40 HIGH RISK' Performed By: #### 2 [id number], [id number] #### [facility] [address] [place] [address] Cholesterol in LDL [Mass/Vol] 107 mg/dL Normal <=129 [facility] Comment on above: Performed By: #### 2 [id number], [id number], [id number] #### [facility] [address] [place] [address] Cholesterol in VLDL [Mass/Vol] 38 mg/dL Normal 7-40 [facility] Comment on above: Performed By: #### 2 [id number], [id number], [id number], [id number] #### [facility] [address] [place] [address] Triglyceride [Mass/Vol] 192 mg/dL High <=149 [facility] Comment on above: Performed By: #### 2 [id number], [id number], [id number], [id number] #### [facility] [address] [place] [address] Physician Orderon 10-21-2023 Physician Order [id number]#1. 00TIFF Normal [facility] eGFRon 10-21-2023 eGFR 105 mL/min/1.73 m2 Normal >=59 [facility] Comment on above: Order Comment: Order added by Discern Expert. Performed By: #### 2 [id number], [id number], [id number], [id number] #### [facility] [address] [place] [address] CHEMISTRYOrdered By: SYSTEM SYSTEM on 09-29-2022 Anion gap [Moles/Vol] 11 mmol/L Normal 6 - 16 mEq/L [facility] Remisol Calcium [Mass/Vol] 8.9 mg/dL Normal 8.9 - 11. 1 mg/dL [facility] Remisol Chloride [Moles/Vol] 101 mmol/L Normal 101 - 1 11 mmol/L [facility] Remisol Creatinine [Mass/Vol] 0.7 mg/dL Normal 0.5 - 1.3 mg/dL [facility] Remisol GFR/1.73 sq M.predicted among blacks MDRD (S/P/Bld) [Vol rate/Area] mL/min/1.73 m2 Normal >=59mL/min/ 1.73 m2 [facility] Chem S GFR/1.73 sq M.predicted among non-blacks MDRD (S/P/Bld) [Vol rate/Area] mL/min/1.73 m2 Normal >=59mL/min/ 1.73 m2 [facility] Chem S Glucose [Mass/Vol] 107 mg/dL Normal 55 - 199 mg/dL [facility] Remisol Potassium [Moles/Vol] 3.8 mmol/L Normal 3.5 - 5.3 mmol/L [facility] Remisol Sodium [Moles/Vol] 136 mmol/L Normal 135 - 145 mmol/L [facility] Remisol Urea nitrogen [Mass/Vol] 17 mg/dL Normal 5 - 21 mg/dL [facility] Remisol Urea nitrogen/Creatinine [Mass ratio] 24 mg/mg High 10 - 20 [facility] and C hemistry - challengeOrdered By: SYSTEM SYSTEM on 09-29-2022 CO2 [Moles/Vol] 28 mmol/L Normal 21 - 31 mmol/L [facility] - Hematology and Cell countsOrdered By: Leonid Leiva on 09-29-2022 HbA1c (Bld) [Mass fraction] 5.8 % Normal <=5.9% [facility] ChemAutoSS No Panel Informationon 09-29 11 {mEq/L} Normal 6-16 [facility] [address] DO Work Phone: 101 mmol/L Normal 101-111 [facility] Work Phone: 3.8 mmol/L Normal 3.5-5.3 [facility] k 600 DO Work Phone: 136 mmol/L Normal 135-145 [facility] DO Work Phone: 8.9 mg/dL Normal 8.9-11.1 [facility] DO Work Phone: 24 {No_Units} above high threshold 10-20 [facility] DO Work Phone: 0.7 mg/dL Normal 0.5-1.3 [facility] DO Work Phone: 17 mg/dL Normal 5-21 [facility] DO Work Phone: 107 mg/dL Normal 55-199 [facility] k 600 DO Work Phone: Comment on above: If this glucose resu lt represents a fasting glucose, interpretation should refer to the following reference range: 55-99 mg/dL >60 Normal >=59 [facility] [employer] 600 DO Work Phone: Comment on above: eGFR is race adjuste d. AA=. Chronic kidney disea se could be indicated at eGFR's of less than 60 mL/min/1.73m2. Kidney failure is indicated at less than 15 mL/min/1.73m2. Falls Screening (Age 18+)on 09-28-2022 Fall risk assessment a) No falls within the last year [facility] [employer] 600 DO Work Phone: Office Visit (Cardiology)on 09-28-2022 Follow-up visit Diagnoses/Problems Assessed Essential hypertension (401.9) (I10) Morbid obesity with BMI of 40.0-44.9, adult (278.01,V85.41) (E66.01,Z68.41) Orders Essential hypertension, Hyperlipidemia, Morbid obesity with BMI of 40.0-44.9, adult, Screening for diabetes mellitus Hemoglobin A1C; Status:Active - Retrospective Authorization; Requested for:[id number]; Essential hypertension, Non-ischemic cardiomyopathy Basic Metabolic Panel; Status:Active - Retrospective Authorization; Requested for:[id number]; Hyperlipidemia, Screening for diabetes mellitus Glucose, Fasting; Status:Active - Retrospective Authorization; Requested for:[id number]; Chief Complaint PHU LOPEZ is being seen [...] DAILY. Multi-Vitamin Oral TabletTAKE 1 TABLET DAILY. Fortuna-3 CAPSTAKE DIRECTED. 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 He reports no symptoms of dyspnea or [...] DAILY. Multi-Vitamin Oral TabletTAKE 1 TABLET DAILY. Fortuna-3 CAPSTAKE DIRECTED. PARoxetine HCl - 20 MG [...] negative for complaint. Vitals Vital Signs Recorded: [id number] 10:02AM Heart Rate88, L Radial Vzuigddu872, RUE, Sitting Uqbignedd06, RUE, Sitting Height5 ft 10 in Vcbxmq766 lb BMI Lcqghcrzzj78.32 kg/m2 BSA Calculated2.44 Tobacco Useb) No PHQ-2 #1. Over the last 2 weeks have you felt down, depressed or hopeless? (If yes, answer PHQ-9 below)No PHQ-2 #2. Over the last 2 weeks have you felt little i (more content not included)... [facility] Tobacco Screening.on 023 Adult depression screening assessment No [facility] k 600 DO Work Phone: Fall risk assessment a) No falls within the last year [facility] k 600 DO Work Phone: Tobacco use status CPHS b) No M [facility] k 600 DO Work Phone: COVID-19 Positive/NegativeOr dered By: Luiz Morrison on 04-23-2022 SARS-CoV-2 (COVID-19) N gene MARY+probe Ql (Resp) Negative Negative [facility] Comment on above: Testing for SARS-CoV -2 by RT-PCR This test was developed and its performance characteristics determined by [employer] and validated at the [facility]. This test has not been FDA [...] aPTT Coag (PPP) [Time] 29.4 s 25.1-36.5 [facility] Basophils Auto (Bld) [#/Vol] Ordered By: Luiz Morrison on 04-13-2022 Basophils (Bld) [#/Vol] 0.0 10*3/uL 0.0-0.2 [facility] Basophils/100 WBC Auto (Bld) Ordered By: Luiz Morrison on 04-13-2022 Basophils/100 WBC (Bld) 0.5 % . [facility] Blood hemoglobin measurement (mass/volume)Ordered By: Luiz Morrison on 04-13-2022 Hemoglobin (Bld) [Mass/Vol] 14.4 g/dL 13.0-17.0 [facility] Blood leukocytes automated c ount (number/volume)Ordered By: Luiz Morrison on 04-13-2022 WBC (Bld) [#/Vol] 7.0 10*3/uL 4.5-11.0 [facility] Creatinine and Glomerular fi ltration rate.predicted panel (S/P/Bld)Ordered By: Luiz Morrison on 04-13-2022 Creatinine [Mass/Vol] 0.60 mg/dL 0.64-1.27 [facility] Eosinophils Auto (Bld) [#/Vo l]Ordered By: Luiz Morrison on 04-13-2022 Eosinophils (Bld) [#/Vol] 0.2 10*3/uL 0.0-0.45 [facility] Eosinophils/100 WBC Auto (Bl d)Ordered By: Luiz Morrison on 04-13-2022 Eosinophils/100 WBC (Bld) 2.4 % . [facility] Erythrocyte distribution wid th Auto (RBC) [Ratio]Ordered By: Luiz Morrison on 04-13-2022 Erythrocyte distribution width (RBC) [Ratio] 13.3 % 12.0-14.8 [facility] Estimated glomerular filtrat ion rate (GFR) non- AmericanOrdered By: Luiz Morrsion on 04-13-2022 GFR/1.73 sq M.predicted among non-blacks MDRD (S/P/Bld) [Vol rate/Area] > 60 mL/Min [facility] Hematocrit Auto (Bld) [Volum e fraction]Ordered By: Luiz Morrison on 04-13-2022 Hematocrit (Bld) [Volume fraction] 42.6 % 38.8-50.0 [facility] Laboratory - CoagulationOrde red By: Luiz Morrison on 04-13-2022 PT Coag (PPP) [Time] 10.8 s 9.0-12.9 [facility] Laboratory - Hematology and Cell countsOrdered By: Luiz Morrison on 04-13-2022 Nucleated RBC/100 WBC (Bld) [Ratio] 0.0 % 0-0.5 [facility] Lymphocytes Auto (Bld) [#/Vo l]Ordered By: Luiz Morrison on 04-13-2022 Lymphocytes (Bld) [#/Vol] 1.2 10*3/uL 1.00-4.8 [facility] Lymphocytes/100 WBC Auto (Bl d)Ordered By: Luiz Morrison on 04-13-2022 Lymphocytes/100 WBC (Bld) 17.7 % . [facility] MCH Auto (RBC) [Entitic mass ]Ordered By: Luiz Morrison on 04-13-2022 MCH (RBC) [Entitic mass] 30.6 pg 27.5-35.2 [facility] MCHC Auto (RBC) [Mass/Vol]Or dered By: Luiz Morrison on 04-13-2022 MCHC (RBC) [Mass/Vol] 33.8 g/dL 32.5-35.6 [facility] MCV Auto (RBC) [Entitic vol] Ordered By: Luiz Morrison on 04-13-2022 MCV (RBC) [Entitic vol] 90.7 fL 83.5-101 [facility] Monocytes Auto (Bld) [#/Vol] Ordered By: Luiz Morrison on 04-13-2022 Monocytes (Bld) [#/Vol] 0.7 10*3/uL 0.0-0.8 [facility] Monocytes/100 WBC Auto (Bld) Ordered By: Luiz Morrison on 04-13-2022 Monocytes/100 WBC (Bld) 9.7 % . [facility] Neutrophils Auto (Bld) [#/Vo l]Ordered By: Luiz Morrison on 04-13-2022 Neutrophils (Bld) [#/Vol] 4.9 10*3/uL 1.8-7.7 [facility] Neutrophils/100 WBC Auto (Bl d)Ordered By: Luiz Morrison on 04-13-2022 Neutrophils/100 WBC (Bld) 69.7 % . [facility] No Panel InformationOrdered By: Luiz Morrison on 04-13-2022 Estimated GFR () > 60 mL/Min [facility] Comment on above: GFR estimated refere nce range: According to KDOQI guidelines, <60 ml/min/1.73m2 is sufficient to diagnose a patient with chronic kidney disease. Pharmacy Creatinine Clearance (Chem N/A [facility] Platelet mean volume Auto (B ld) [Entitic vol]Ordered By: Luiz Morrison on 04-13-2022 Platelet mean volume (Bld) [Entitic vol] 9.2 fL 6.6-10.1 [facility] Platelet poor plasma interna tional normalized ratio (INR) by coagulation assay (relatOrdered By: Luiz Morrison on 04-13-2022 INR Coag (PPP) [Relative time] 1.0 {INR} [facility] Comment on above: INR Therapeutic Rang [...] 04-13-2022 Platelets (Bld) [#/Vol] 265 10*3/uL 150-450 [facility] RBC Auto (Bld) [#/Vol]Ordere d By: Luiz Morrison on 04-13-2022 RBC (Bld) [#/Vol] 4.70 10*6/uL 3.90-5.60 [facility] Serum or plasma anion gap de terminationOrdered By: Luiz Morrison on 04-13-2022 Anion gap [Moles/Vol] 13.0 mmol/L 6.0-15.0 [facility] Serum or plasma calcium anne urement (mass/volume)Ordered By: Luiz Morrison on 04-13-2022 Calcium [Mass/Vol] 9.4 mg/dL 8.2-10.2 [facility] Serum or plasma chloride neo surement (moles/volume)Ordered By: Luiz Morrison on 04-13-2022 Chloride [Moles/Vol] 100 mmol/L 95-114 [facility] Serum or plasma glucose anne urement (mass/volume)Ordered By: Luiz Morrison on 04-13-2022 Glucose [Mass/Vol] 112 mg/dL 70-100 [facility] Comment on above: ADA recommended refe rence range Random Glucose Reference Range is dependent on time and content of last meal. Glucose of more than 200 mg/dL in a nonstressed, ambulatory subject supports the diagnosis of Diabetes Mellitus. Serum or plasma potassium me asurement (moles/volume)Ordered By: Luiz Morrison on 04-13-2022 Potassium [Moles/Vol] 3.6 mmol/L 3.5-5.1 [facility] Serum or plasma sodium measu rement (moles/volume)Ordered By: Luiz Morrison on 04-13-2022 Sodium [Moles/Vol] 136 mmol/L 136-146 [facility] Serum or plasma total carbon dioxide measurement (moles/volume)Ordered By: Luiz Morrison on 04-13-2022 CO2 [Moles/Vol] 26.6 mmol/L 22.0-30.0 [facility] Serum or plasma urea nitroge n measurement (mass/volume)Ordered By: Luiz Morrison on 04-13-2022 Urea nitrogen [Mass/Vol] 7 mg/dL 9-23 [facility] CHEMISTRYOrdered By: Gabriel rendon on 04-01-2022 HbA1c (Bld) [Mass fraction] 5.3 % Normal <=5.9% [facility] ChemAutoSS Creatinine (Bld) [Mass/Vol]O rdered By: Luiz Morrison on 01-21-2022 Creatinine [Mass/Vol] 0.8 mg/dL 0.6-1.3 [facility] Comment on above: ER/ESD physician is notified/shown all ISTAT results. Critical values may be confirmed by laboratory testing if deemed necessary by ER attending doctor. No Panel InformationOrdered By: Luiz Morrison on 01-21-2022 POC Estimated GFR > 60 [facility] Comment on above: GFR estimated refere nce range: According to KDOQI guidelines, <60 ml/min/1.73m2 is sufficient to diagnose a patient with chronic kidney disease. POC Estimated GFR Non- Amer > 60 [facility] CHEMISTRYOrdered By: SYSTEM SYSTEM on 12-22-2021 [...] 8.4 E9/L Normal 4.0 - 11.0 E9/L [facility] HemeAutoSS CHEMISTRYOrdered By: SYSTEM SYSTEM on 11-19-2021 Creatinine [Mass/Vol] 0.7 mg/dL Normal 0.5 - 1.3 mg/dL [facility] Remisol GFR/1.73 sq M.predicted among blacks MDRD (S/P/Bld) [Vol rate/Area] mL/min/1.73 m2 Normal >=59mL/min/ 1.73 m2 [facility] Chem S GFR/1.73 sq M.predicted among non-blacks MDRD (S/P/Bld) [Vol rate/Area] mL/min/1.73 m2 Normal >=59mL/min/ 1.73 m2 [facility] Chem S Tobacco Screening.on 022 Fall risk assessment a) No falls within the last year [facility] [employer] 600 DO Work Phone: Tobacco use status CPHS b) No M [facility] [employer] 600 DO Work Phone: CORONAVIRUS 2019 BY PCRon SARS-CoV-2 (COVID-19) RNA MARY+probe Ql (Unsp spec) Not detected Normal Not Detected [facility] Comment on above: Result Comment: . This [...] this test method. Fact sheet for providers: https://www.fda.gov/media/707375/download Fact sheet for patients: https://www.fda.gov/media/861973/download This test has received FDA Emergency Use Authorization [EUA] and has been verified by [facility] ([facility]). This test is only authorized for the duration of time that circumstances exist to justify the authorization of the emergency use of in vitro diagnostic tests for the detection of SARS-CoV-2 virus and/or diagnosis of COVID-19 infection under section 564(b)(1) of the Act, 21 U.S.C. 360bbb-3(b)(1), unless the authorization is terminated or revoked sooner. [facility] is certified under CLIA-88 as qualified to perform high complexity testing. Testing is performed in the [facility] laboratories located at [address] [place] [address]. Performed By: #### C OV19 #### [facility] [id number] [place] [address]. [place] [address] Covid 19 Resultson 1 SARS-CoV-2 (COVID-19) RNA [...] You may also be contacted by the [facility] to see if any of [...] or Naproxen (Aleve) can also be used. Ibmf-kzm-uxjgcnd cough and cold medicines can be used according to the instructions on the package. Some ucpy-qmn-ebluhky medicines also contain acetaminophen. Make sure you [...] water are not available, use alcohol-based hand education managers. Avoid touching your eyes, nose, and mouth [...] for 24 matias (more content not included)... [facility] CORONAVIRUS 2019 BY PCRon DATE OF SYMPTOM ONSET [YYYYMMDD]? [id number] [facility] Comment on above: Performed By: #### C OV19 #### [facility] [address] [place] [address] Lab Specimen Source Nasal, Nasopharyngeal [facility] Comment on above: Performed By: #### C OV19 #### [facility] [address] [place] [address] Provider Note - ED v2on 08 Provider [...] SIGNS: T PRBP SpO2O2(LPM) %FiO2 Method 10-Mar-2021 13:09:[id number]/70 95 PHYSICAL EXAM CONSTITUTIONAL: Appearance: well appearing [...] with instruction (more content not included)... Normal [facility] CORONAVIRUS 2019 BY PCRon SARS-CoV-2 (COVID-19) RNA MARY+probe Ql (Unsp spec) Not detected Normal Not Detected [facility] Comment on above: Result Comment: . This [...] patient management decisions. Fact sheet for providers: https://www.fda.gov/media/751472/download Fact sheet for patients: https://www.fda.gov/media/185212/download This test has received FDA Emergency Use Authorization (EUA) and has been verified by [facility] ([facility]). This test is only authorized for the duration of time that circumstances exist to justify the authorization of the emergency use of in vitro diagnostic tests for the detection of SARS-CoV-2 virus and/or diagnosis of COVID-19 infection under section 564(b)(1) of the Act, 21 U.S.C. 360bbb-3(b)(1), unless the authorization is terminated or revoked sooner. [facility] is certified under CLIA-88 as qualified to perform high complexity testing. Testing is performed in the [facility] laboratories located at [address] [place] [address]. Performed By: #### C OV19 #### [address] [place] [address] Covid 19 Resultson 1 SARS-CoV-2 (COVID-19) RNA [...] You may also be contacted by the [facility] to see if any [...] or Naproxen (Aleve) can also be used. Pkob-uvo-nlgilye cough and cold medicines can be used according to the instructions on the package. Some nzii-vsi-gprbkoh medicines also contain acetaminophen. Make sure you [...] water are not available, use alcohol-based hand education managers. Avoid touching your eyes, nose, and mouth [...] like ibuprofen (Motrin) (more content not included)... [facility] CORONAVIRUS 2019 BY PCRon DATE OF SYMPTOM ONSET [YYYYMMDD]? [id number] [facility] Comment on above: Performed By: #### C OV19 #### [facility] [address] [place] [address] Lab Specimen Source Nasal, Nasopharyngeal [facility] Comment on above: Performed By: #### C OV19 #### [facility] [address] [place] [address] Provider Note - ED v2on Provider Note [...] and symptoms. Symptoms have been refractory to zmio-wvy-skbawme medications.. Triage Information: Most recent Vital Sign [...] Updated: 12-Sep-2020 09:08 by Emile Michelle (PAC) [facility] Provider Note - ED v2on 11-3 Provider Note - ED v2 Provider Note [...] SIGNS: T PRBP SpO2O2(LPM) %FiO2 Method 07-Jul-2020 13:05:[id number]/ 69 97 PHYSICAL EXAM CONSTITUTIONAL: Appearance: well [...] exam a (more content not included)... Normal [facility] URINE CULTURE,BACTERIALon URINE CULTURE,BACTERIAL PATIENT: JONO LOPEZ LOCATION: [facility]#: [id number] : 57 AGE: SEX: M ORDERED BY: CHRISS MARIE SOURCE: URINE COLLECTED: 07/07/20 14:07 ANTIBIOTICS AT CHAIM.: RECEIVED : 07/07/20 19:19 SITE: R E S U L T S URINE CULTURE,BACTERIAL FINAL 07/08/20 12:57 NO SIGNIFICANT GROWTH. [facility] Comment on above: Performed By: #### [facility] #### [facility] [address] [address] OCT MACULA CIRRUS OU (BOTH E YES) [facility] Vital Signs Date Time Vital Sign Value Performing Clinician Facility 07-25-2024 08:43-0500 Body height 177.8 cm Liliana Waller MD Work Phone: [facility] 07-25-2024 08:43-0500 Body mass index (BMI) [Ratio] 43.91 kg/m2 Liliana Waller MD Work Phone: [facility] 07-25-2024 08:43-0500 Body temperature 98.4 [degF] Liliana Waller MD Work Phone: [facility] 07-25-2024 08:43-0500 Body weight 138.8 kg Liliana Waller MD Work Phone: [facility] 07-25-2024 08:43-0500 Diastolic blood pressure 80 mm[Hg] Liliana Waller MD Work Phone: [facility] 07-25-2024 08:43-0500 Heart rate 70 /min Liliana Waller MD Work Phone: [facility] 07-25-2024 08:43-0500 SaO2% (BldA) [Mass fraction] 97 % Liliana Waller MD Work Phone: [facility] 07-25-2024 08:43-0500 Systolic blood pressure 142 mm[Hg] Liliana Waller MD Work Phone: [facility] 06-20-2024 12:58-0500 Diastolic blood pressure 70 mm[Hg] Luiz MORRISON [facility] 06-20-2024 12:58-0500 Mean blood pressure 93 mm[Hg] Luiz OMRRISON [facility] 06-20-2024 12:58-0500 Systolic blood pressure 138 mm[Hg] Luizcaitie MORRISON [facility] 06-20-2024 12:51-0500 Blood Pressure Location Luizcaitie MORRISON [facility] 06-20-2024 12:51-0500 Diastolic blood pressure 80 mm[Hg] Luiz MORRISON [facility] 06-20-2024 12:51-0500 Heart rate 78 /min Luizcaitie MRORISON [facility] 06-20-2024 12:51-0500 Respiratory rate 16 /min Luizcaitie MORRISON [facility] 06-20-2024 12:51-0500 Systolic blood pressure 150 mm[Hg] Luiz MORRISON [facility] 06-04-2024 07:58-0400 Body height 177.8 cm Adam Jack DPM FACFAS Work Phone: [facility] 06-04-2024 07:58-0400 Body mass index (BMI) [Ratio] 42.62 kg/m2 Adam Jack DPM [employer] Work Phone: [facility] 06-04-2024 07:58-0400 Body weight 134.72 kg Adam Jack DPM [employer]AC[employer] Work Phone: [facility] 06-04-2024 07:58-0400 Diastolic blood pressure 71 mm[Hg] Adam Jack DPM FAC[employer]AS Work Phone: [facility] 06-04-2024 07:58-0400 Heart rate 74 /min Adam Jack DPM [employer]AC[employer] Work Phone: [facility] 06-04-2024 07:58-0400 Systolic blood pressure 132 mm[Hg] Adam Dolce DPM FACFAS Work Phone: [facility] 05-10-2024 09:24-0400 Body height 177.8 cm Liliana Waller MD Work Phone: [facility] 05-10-2024 09:24-0400 Body mass index (BMI) [Ratio] 42.62 kg/m2 Liliana Waller MD Work Phone: [facility] 05-10-2024 09:24-0400 Body temperature 98.2 [degF] Liliana Waller MD Work Phone: [facility] 05-10-2024 09:24-0400 Body weight 134.72 kg Liliana Waller MD Work Phone: [facility] 05-10-2024 09:24-0400 Diastolic blood pressure 68 mm[Hg] Liliana Waller MD Work Phone: [facility] 05-10-2024 09:24-0400 Heart rate 67 /min Liliana Waller MD Work Phone: [facility] 05-10-2024 09:24-0400 SaO2% (BldA) [Mass fraction] 97 % Liliana Waller MD Work Phone: [facility] 05-10-2024 09:24-0400 Systolic blood pressure 130 mm[Hg] Liliana Waller MD Work Phone: [facility] 05-07-2024 13:42-0400 Body height 177.8 cm [facility] 05-07-2024 13:42-0400 Body mass index (BMI) [Ratio] 41.7 kg/m2 [facility] 05-07-2024 13:42-0400 Body weight 131.99 kg [facility] 05-07-2024 13:42-0400 Diastolic blood pressure 69 mm[Hg] [facility] 05-07-2024 13:42-0400 Heart rate 78 /min [facility] 05-07-2024 13:42-0400 SaO2% (BldA) [Mass fraction] 96 % [facility] 05-07-2024 13:42-0400 Systolic blood pressure 148 mm[Hg] [facility] 04-13-2024 10:38-0400 Body mass index (BMI) [Ratio] 42.07 kg/m2 Elyssa Adler MD Work Phone: [facility] 04-13-2024 10:38-0400 Body temperature 98.4 [degF] Elyssa Adler MD Work Phone: [facility] 04-13-2024 10:38-0400 Body weight 133 kg Elyssa Adler MD Work Phone: [facility] 04-13-2024 10:38-0400 Diastolic blood pressure 82 mm[Hg] Elyssa Adler MD Work Phone: [facility] 04-13-2024 10:38-0400 Heart rate 71 /min Elyssa Adler MD Work Phone: [facility] 04-13-2024 10:38-0400 SaO2% (BldA) [Mass fraction] 97 % Elyssa Adler MD Work Phone: [facility] 04-13-2024 10:38-0400 Systolic blood pressure 132 mm[Hg] Elyssa Adler MD Work Phone: [facility] 03-12-2024 13:59-0400 Body height 177.8 cm [facility] 03-12-2024 13:59-0400 Body mass index (BMI) [Ratio] 40.7 kg/m2 [facility] 03-12-2024 13:59-0400 Body weight 128.82 kg [facility] 03-12-2024 13:59-0400 Diastolic blood pressure 69 mm[Hg] [facility] 03-12-2024 13:59-0400 Heart rate 75 /min [facility] 03-12-2024 13:59-0400 SaO2% (BldA) [Mass fraction] 94 % [facility] 03-12-2024 13:59-0400 Systolic blood pressure 140 mm[Hg] [facility] 09-30-2023 08:46-0500 Body height 177.8 cm Delores Ac MD Work Phone: [facility] 09-30-2023 08:46-0500 Body mass index (BMI) [Ratio] 42.04 kg/m2 Delores Ac MD Work Phone: [facility] 09-30-2023 08:46-0500 Body weight 132.9 kg Delores Ac MD Work Phone: [facility] 09-30-2023 08:46-0500 Diastolic blood pressure 60 mm[Hg] Delores Ac MD Work Phone: [facility] 09-30-2023 08:46-0500 Heart rate 76 /min Delores Ac MD Work Phone: [facility] 09-30-2023 08:46-0500 Systolic blood pressure 138 mm[Hg] Delores Ac MD Work Phone: [facility] 06-15-2023 13:25-0500 Diastolic blood pressure 90 mm[Hg] Luiz MORRISON [facility] 06-15-2023 13:25-0500 Mean blood pressure 110 mm[Hg] Luiz MORRISON [facility] 06-15-2023 13:25-0500 Systolic blood pressure 150 mm[Hg] Luiz MORRISON [facility] 06-15-2023 13:20-0500 Blood Pressure Location Luiz MORRISON [facility] 06-15-2023 13:20-0500 Diastolic blood pressure 94 mm[Hg] Luiz MORRISON [facility] 06-15-2023 13:20-0500 Heart rate 83 /min Luiz MORRISON [facility] 06-15-2023 13:20-0500 Systolic blood pressure 150 mm[Hg] Luiz MORRISON [facility] 02-21-2023 13:30-0400 Body height 172.72 cm Burak Rangel Other [employer] Other 02-21-2023 13:30-0400 Body mass index (BMI) [Ratio] 44.55 kg/m2 Compajuan Claire Other [employer] Other 02-21-2023 13:30-0400 Body weight 132.9 kg Burak Rangel Other [facility] Other 02-21-2023 13:30-0400 Diastolic blood pressure 71 mm[Hg] Burak Rangel Other [employer] Other 02-21-2023 13:30-0400 SaO2% (BldA) [Mass fraction] 96 % Burak Rangel Other [employer] Other 02-21-2023 13:30-0400 Systolic blood pressure 167 mm[Hg] Burak Rangel Other [facility] Other 11-03-2022 15:48-0400 Blood Pressure Location Luiz MORRISON [facility] 11-03-2022 15:48-0400 Diastolic blood pressure 76 mm[Hg] Luiz MORRISON [facility] 11-03-2022 15:48-0400 Heart rate 76 /min Luiz MORRISON [facility] 11-03-2022 15:48-0400 Systolic blood pressure 138 mm[Hg] Luiz MORRISON [facility] 09-28-2022 12:04-0500 Diastolic blood pressure 60 mm[Hg] Terri Powellsop Work Phone: [facility] [facility] Work Phone: 09-28-2022 12:04-0500 Systolic blood pressure 118 mm[Hg] Terri Allsop Work Phone: [facility] DO Work Phone: 09-28-2022 11:58-0500 Diastolic blood pressure 42 mm[Hg] Terri Powellsop Work Phone: [facility] DO Work Phone: 09-28-2022 11:58-0500 Systolic blood pressure 118 mm[Hg] Terri Allsop Work Phone: [facility] DO Work Phone: 09-28-2022 11:57-0500 Body height 177.8 cm Terri Powellsop Work Phone: [facility] DO Work Phone: 09-28-2022 11:57-0500 Body mass index (BMI) [Ratio] 40.89 kg/m2 Terri Allsop Work Phone: [facility] DO Work Phone: 09-28-2022 11:57-0500 Body surface area Derived from formula 2.43 m2 Terri Allsop Work Phone: [facility] 600 DO Work Phone: 02-21-2023 11:57-0500 Body weight 129.28 kg Terri Allsop Work Phone: [facility] 600 DO Work Phone: 09-28-2022 11:57-0500 Diastolic blood pressure 44 mm[Hg] Terri Allsop Work Phone: [facility] 600 DO Work Phone: 09-28-2022 11:57-0500 Heart rate 80 /min Terri Allsop Work Phone: [facility] 600 DO Work Phone: 09-28-2022 11:57-0500 Systolic blood pressure 120 mm[Hg] Terri Allsop Work Phone: [facility] 600 DO Work Phone: 09-10-2022 10:02-0500 Body height 177.8 cm Terri Allsop Work Phone: [facility] 600 DO Work Phone: 09-10-2022 10:02-0500 Body mass index (BMI) [Ratio] 41.32 kg/m2 Terri Allsop Work Phone: [facility] 600 DO Work Phone: 09-10-2022 10:02-0500 Body surface area Derived from formula 2.44 m2 Terri Allsop Work Phone: [facility] 600 DO Work Phone: 09-10-2022 10:02-0500 Body weight 130.64 kg Terri Allsop Work Phone: [facility] 600 DO Work Phone: 09-10-2022 10:02-0500 Diastolic blood pressure 70 mm[Hg] Terri Allsop Work Phone: [facility] 600 DO Work Phone: 09-10-2022 10:02-0500 Heart rate 88 /min Terri Powellsop Work Phone: [facility] 600 DO Work Phone: 09-10-2022 10:02-0500 Systolic blood pressure 162 mm[Hg] Terri Powellsop Work Phone: [facility] 600 DO Work Phone: 06-24-2022 13:10-0500 Blood Pressure Location William Mourany [facility] 06-24-2022 13:10-0500 Diastolic blood pressure 87 mm[Hg] William Mourany [facility] 06-24-2022 13:10-0500 Heart rate 91 /min William Mourany [facility] 06-24-2022 13:10-0500 Respiratory rate 21 /min William Mourany [facility] 06-24-2022 13:10-0500 SaO2% (BldA) [Mass fraction] 97 % William Mourany [facility] 06-24-2022 13:10-0500 Systolic blood pressure 152 mm[Hg] William Mourany [facility] 06-24-2022 13:05-0500 Blood Pressure Location William Mourany [facility] 06-24-2022 13:05-0500 Diastolic blood pressure 94 mm[Hg] William Mourany [facility] 06-24-2022 13:05-0500 Heart rate 91 /min William Mourany [facility] 06-24-2022 13:05-0500 Respiratory rate 24 /min William Mourany [facility] 06-24-2022 13:05-0500 SaO2% (BldA) [Mass fraction] 97 % William Mourany [facility] 06-24-2022 13:05-0500 Systolic blood pressure 164 mm[Hg] William Mourany [facility] 06-24-2022 13:00-0500 Heart rate 92 /min William Mourany [facility] 06-24-2022 13:00-0500 Respiratory rate 18 /min William Mourany [facility] 06-24-2022 13:00-0500 SaO2% (BldA) [Mass fraction] 96 % William Mourany [facility] 06-24-2022 13:00-0500 Systolic blood pressure 162 mm[Hg] William Mourany [facility] 06-24-2022 12:40-0500 Body temperature 97.16 [degF] William Mourany [facility] 06-24-2022 12:37-0500 Respiratory rate 20 /min William Mourany [facility] 06-24-2022 12:30-0500 Respiratory rate 20 /min William Mourany [facility] 06-24-2022 12:25-0500 Respiratory rate 20 /min William Mourany [facility] 06-24-2022 11:31-0500 Body temperature 97.16 [degF] William Mourany [facility] 05-12-2022 08:06-0400 Blood Pressure Location Luiz MORRISON [facility] 05-12-2022 08:06-0400 Diastolic blood pressure 80 mm[Hg] Luiz MORRISON [facility] 05-12-2022 08:06-0400 Heart rate 80 /min Luizcaitie MORRISON [facility] 05-12-2022 08:06-0400 Respiratory rate 16 /min Luiz MORRISON [facility] 05-12-2022 08:06-0400 Systolic blood pressure 151 mm[Hg] Luiz MORRISON [facility] 04-28-2022 11:54-0400 Body temperature 99.2 [degF] MD Terri Santos Work Phone: [facility] 04-28-2022 11:54-0400 Diastolic blood pressure 91 mm[Hg] MD Terri Santos Work Phone: [facility] 04-28-2022 11:54-0400 Heart rate 92 /min MD Terri Santos Work Phone: [facility] 04-28-2022 11:54-0400 Respiratory rate 18 /min MD Terri Santos Work Phone: [facility] 04-28-2022 11:54-0400 SaO2% (BldA) [Mass fraction] 92 % MD Terri Santos Work Phone: [facility] 04-28-2022 11:54-0400 Systolic blood pressure 173 mm[Hg] MD Terri Santos Work Phone: [facility] 04-28-2022 05:14-0400 Body weight 126.5 kg MD Terri Santos Work Phone: [facility] 04-27-2022 10:48-0400 Inhaled oxygen flow rate 6 L/min MD Terri Santos Work Phone: [facility] 04-27-2022 09:08-0400 Body height 180.34 cm MD Terri Santos Work Phone: [facility] 04-27-2022 09:08-0400 Body mass index (BMI) [Ratio] 37.6 kg/m2 MD Terri Santos Work Phone: [facility] 04-01-2022 10:10-0400 Blood Pressure Location Leonid HICKEYL [facility] [place] 04-01-2022 10:10-0400 Diastolic blood pressure 69 mm[Hg] Leonid HICKEYL [facility] [place] 04-01-2022 10:10-0400 Heart rate 79 /min Leonid HICKEYL [facility] [place] 04-01-2022 10:10-0400 Respiratory rate 16 /min Leonid HICKEYL [facility] [place] 04-01-2022 10:10-0400 Systolic blood pressure 167 mm[Hg] Leonid NILL [facility] 02-22-2022 14:45-0400 Body height 172.72 cm Burak Rangel Other [facility] Other 02-22-2022 14:45-0400 Body mass index (BMI) [Ratio] 45.08 kg/m2 Burak Rangel Other [facility] Other 02-22-2022 14:45-0400 Body temperature 97.5 [degF] Burak Rangel Other [facility] Other 02-22-2022 14:45-0400 Body weight 134.49 kg Burak Rangel Other [facility] Other 02-22-2022 14:45-0400 Diastolic blood pressure 75 mm[Hg] Burak Rangel Other [facility] Other 02-22-2022 14:45-0400 SaO2% (BldA) [Mass fraction] 96 % Burak Rangel Other [facility] Other 02-22-2022 14:45-0400 Systolic blood pressure 148 mm[Hg] Burak Rangel Other [facility] Other 12-22-2021 08:15-0400 Blood Pressure Location Luiz MORRISON [facility] 12-22-2021 08:15-0400 Diastolic blood pressure 71 mm[Hg] Luiz MORRISON [facility] 12-22-2021 08:15-0400 Heart rate 74 /min Luiz MORRISON [facility] 12-22-2021 08:15-0400 Systolic blood pressure 139 mm[Hg] Luiz MORRISON [facility] 12-11-2021 08:18-0400 Blood Pressure Location William Brush [facility] [place] 12-11-2021 08:18-0400 Diastolic blood pressure 77 mm[Hg] William Brush [facility] [place] 12-11-2021 08:18-0400 Heart rate 77 /min William Brush [facility] [place] 12-11-2021 08:18-0400 Systolic blood pressure 155 mm[Hg] William Brush [facility] 11-04-2021 10:36-0400 Blood Pressure Location Luiz MORRISON [facility] 11-04-2021 10:36-0400 Diastolic blood pressure 78 mm[Hg] Luiz MORRISON [facility] [place] 11-04-2021 10:36-0400 Heart rate 85 /min Luiz MORRISON [facility] [place] 11-04-2021 10:36-0400 Respiratory rate 16 /min Luiz MORRISON [facility] [place] 11-04-2021 10:36-0400 Systolic blood pressure 144 mm[Hg] Luiz MORRISON [facility] [place] 08-31-2021 15:23-0500 Diastolic blood pressure 60 mm[Hg] Terri Santos Work Phone: [facility] 600 DO Work Phone: 08-31-2021 15:23-0500 Systolic blood pressure 130 mm[Hg] Terri Allsop Work Phone: [facility] 600 DO Work Phone: 08-31-2021 15:08-0500 Body height 177.8 cm Terri Allsop Work Phone: [facility] 600 DO Work Phone: 08-31-2021 15:08-0500 Body mass index (BMI) [Ratio] 40.89 kg/m2 Terri Allsop Work Phone: [facility] 600 DO Work Phone: 08-31-2021 15:08-0500 Body surface area Derived from formula 2.43 m2 Terri Powellsop Work Phone: [facility] 600 DO Work Phone: 08-31-2021 15:08-0500 Body weight 129.28 kg Terri Powellsop Work Phone: [facility] 600 DO Work Phone: 08-31-2021 15:08-0500 Diastolic blood pressure 79 mm[Hg] Terri Allsop Work Phone: [facility] 600 DO Work Phone: 08-31-2021 15:08-0500 Heart rate 75 /min Terri Allsop Work Phone: [facility] 600 DO Work Phone: 08-31-2021 15:08-0500 Systolic blood pressure 144 mm[Hg] Terri Allsop Work Phone: [facility] 600 DO Work Phone: 03-10-2021 15:09-0400 Body height 177.8 cm Terir Powellsop Other Phone: [facility] 03-10-2021 15:09-0400 Body temperature 98.42 [degF] Terri Allsop Other Phone: [facility] 03-10-2021 15:09-0400 Diastolic blood pressure 70 mm[Hg] Terri Allsop Other Phone: [facility] 03-10-2021 15:09-0400 Heart rate 82 /min Terri Powellsop Other Phone: [facility] 03-10-2021 15:09-0400 SaO2% (BldA) [Mass fraction] 95 % Terri Powellsop Other Phone: [facility] 03-10-2021 15:09-0400 Systolic blood pressure 132 mm[Hg] Terri Powellsop Other Phone: [facility] Encounters Encounter Date Encounter Type Care Provider Facility Start: 07-25-2024 End: 07-25-2024 Lorenzo Waller MD Work Phone: [facility] Start: 07-25-2024 End: 07-25-2024 Lorenzo Waller MD Work Phone: [facility] Start: 07-25-2024 End: 07-25-2024 Office outpatient visit 25 minutes Liliana Waller MD Work Phone: [facility] Comment on above: Acute deep vein thro mbosis (DVT) of distal vein of right lower extremity (CMS/HCC) (Primary Dx); 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; Essential hypertension (CMS/HCC); PVD (peripheral vascular disease) (CMS/HCC); BMI 40.0-44.9, adult (CMS/HCC); Morbid obesity (CMS/HCC) Start: 07-25-2024 End: 07-25-2024 ambulatory LILIANA WALLER Not Available Start: 07-24-2024 End: 07-24-2024 ambulatory Luiz Morrison Facility:[facility] Start: 06-20-2024 End: 06-20-2024 ambulatory Luiz MORRISON Facility: [place] Start: 06-20-2024 End: 06-20-2024 Patient encounter procedure Luiz R TAMIKO [facility] [place] Start: 06-13-2024 End: 06-13-2024 Refill Heaven Lopez [...] Start: 06-01-2024 End: 06-01-2024 ambulatory TERRI SANTOS Facility:[facility] Start: 06-01-2024 End: 06-01-2024 Patient encounter procedure [...] Start: 05-25-2024 End: 05-25-2024 ambulatory Luiz MORRISON Facility:[facility] Start: 05-25-2024 End: 05-25-2024 Patient encounter procedure Luiz MORRISON [facility] Start: 05-10-2024 End: 05-10-2024 Bamboo flowsheet [...] of right lower extremity (CMS/HCC) (Primary Dx); long-term current use of anticoagulant; Cardiomyopathy, unspecified type (CMS/HCC); PVD (peripheral vascular disease) (CMS/HCC); Essential hypertension (CMS/HCC); BMI 40.0-44.9, adult (CMS/HCC); Morbid obesity (CMS/HCC) Start: 05-10-2024 End: 05-10-2024 ambulatory LILIANA WALLER Not Available Start: 05-07-2024 End: 05-07-2024 ambulatory [facility] Work Phone: Start: 05-07-2024 End: 05-07-2024 Patient encounter procedure [facility] Work Phone: Start: 04-24-2024 End: 04-24-2024 Telephone encounter Elyssa Adler MD Work Phone: [facility] Start: 04-13-2024 End: 04-13-2024 Bamboo flowsyulia Adler MD Work Phone: [facility] Start: 04-13-2024 End: 04-13-2024 Bamboo flowsheet Elyssa Adler MD Work Phone: [facility] Start: 04-13-2024 End: 04-13-2024 Office outpatient visit 25 minutes Elyssa Adler MD Work Phone: [facility] Comment on above: Acute deep vein thro mbosis (DVT) of distal vein of right lower extremity (CMS/HCC) (Primary Dx); Cardiomyopathy, unspecified type (CMS/HCC); PVD (peripheral vascular disease) (CMS/HCC) Start: 04-13-2024 End: 04-13-2024 ambulatory ELYSSA ADLER Not Available Start: 03-26-2024 End: 03-26-2024 ambulatory ADAM D DOLCE Not Available Start: 03-12-2024 End: 03-12-2024 Patient encounter procedure [facility] Work Phone: Start: 01-09-2024 End: 01-09-2024 ambulatory ADAM D DOLCE Not Available Start: 12-01-2023 End: 12-01-2023 ambulatory TERRI D ALLSOP Not Available Start: 11-25-2023 End: 11-25-2023 ambulatory Terri D Allsop Facility:[facility] Start: 11-25-2023 End: 11-25-2023 Patient encounter procedure Terri D Allsop [facility] Start: 11-17-2023 End: 11-17-2023 ambulatory TERRI D ALLSOP Not Available Start: 10-31-2023 End: 10-31-2023 ambulatory ADAM D DOLCE Not Available Start: 10-21-2023 End: 10-21-2023 ambulatory Terri D Allsop Facility:[facility] Start: 10-21-2023 End: 10-21-2023 Patient encounter procedure Terri D Allsop [facility] Start: 09-30-2023 End: 09-30-2023 Office outpatient visit 25 minutes Delores Ac MD Work Phone: [facility] Comment on above: Essential hypertensi on; Non-ischemic cardiomyopathy (CMS/HCC); Hyperlipidemia, unspecified hyperlipidemia type; Obstructive sleep apnea, adult; Morbid obesity with BMI of 40.0-44.9, adult (CMS/HCC) Start: 09-30-2023 End: 09-30-[address] [facility] Start: 08-25-2023 End: 08-25-2023 ambulatory TERRI SANTOS Not Available Start: 08-22-2023 End: 08-22-2023 ambulatory ADAM JACK Not Available Start: 06-15-2023 End: 06-15-2023 Patient encounter procedure Luiz MORRISON [facility] [employer] Start: 04-30-2023 End: 04-30-2023 Patient encounter procedure Luiz MORRISON [facility] Start: 02-21-2023 [facility] Start: 02-21-2023 End: 02-21-2023 ambulatory MD Terri Santos Work Phone: [facility] Work Phone: Start: 02-21-2023 End: 02-21-2023 Patient encounter procedure MD Terri Santos Work Phone: [facility] Work Phone: Start: 11-04-2022 Rx Renewal Terri Rm p Work Phone: [facility] 250 DO Work Phone: Start: 11-03-2022 End: 11-03-2022 Patient encounter procedure Luiz MORRISON [facility] [place] Start: 09-29-2022 Chart Update Terri Rm p Work Phone: [facility] 600 DO Work Phone: Start: 09-29-2022 End: 09-29-2022 Patient encounter procedure Delores Ac [facility] Start: 09-28-[address] Delores Ac Facility: Start: 09-28-2022 Office outpatient vi sit 10 minutes [facility] Powellsop [facility] Work Phone: Start: 09-10-2022 Office outpatient vi sit 25 minutes Terri Santos [facility] Work Phone: Start: 09-10-2022 Patient encounter procedure Terri Santos Work Phone: [facility] 600 DO Work Phone: Start: 09-10-[address] Terri Santos Facility: Start: 07-02-2022 Rx Renewal [facility] Rm p [facility] Work Phone: Start: 06-24-2022 End: 06-24-2022 Patient encounter procedure William Brush [facility] Start: 05-21-2022 End: 05-21-2022 Patient encounter procedure Cici Merida OD Work Phone: Ophthalmology Comment on above: Epiretinal membrane (ERM) of both eyes (Primary Dx); Floppy eyelid syndrome of both eyes; Combined forms of age-related cataract of both eyes; Posterior vitreous detachment of both eyes; Vitreous floaters of both eyes Start: 05-12-2022 End: 05-12-2022 Patient encounter procedure Luiz MORRISON [facility] [place] Start: 05-10-2022 Rx Renewal Terri greene Work Phone: [facility] 250 DO Work Phone: Start: 04-30-2022 End: 04-30-2022 Patient encounter procedure Luiz MORRISON [facility] Start: 04-27-2022 End: 04-28-2022 Admission to same day surgery center MD Terri Santos Work Phone: [facility] [place] Start: 04-23-2022 End: 04-23-2022 Patient encounter procedure MD Terri Santos Work Phone: [facility] Start: 04-13-2022 End: 04-13-2022 Patient encounter procedure MD Terri Santos Work Phone: [facility] Start: 04-01-2022 End: 04-01-2022 Lab Drop off Adam Jack [facility] Start: 04-01-2022 End: 04-01-2022 Patient encounter procedure Leonid WHITEHEAD [facility] [place] Start: 03-26-2022 End: 04-07-2022 Pre-admission assessment Milo Gonzales [facility] Start: 03-17-2022 End: 03-17-2022 Patient encounter procedure Luiz MORRISON [facility] Start: 03-02-2022 End: 03-02-2022 Patient encounter procedure Luiz MORRISON [facility] Start: 02-22-2022 End: 02-22-2022 ambulatory Burak Rangel Other [facility] [employer] Other Start: 02-22-2022 Office outpatient vi sit 15 minutes Burak Rangel [facility] Start: 02-22-2022 End: 02-22-2022 Patient encounter procedure MD Terri Santos Work Phone: [facility] Start: 01-21-2022 End: 01-21-2022 Patient encounter procedure MD Terri Santos Work Phone: [facility] [place] Start: 12-22-2021 End: 12-22-2021 Lab Drop off Luiz MORRISON [facility] Start: 12-22-2021 End: 12-22-2021 Patient encounter procedure Luiz MORRISON [facility] [place] Start: 12-11-2021 End: 02-20-2022 Pre-admission assessment Wililam Brush [facility] Start: 12-11-2021 End: 12-11-2021 Patient encounter procedure William Brush [facility] [place] Start: 12-10-2021 End: 12-10-2021 Patient encounter procedure Belinda VELASQUE[facility] [facility] Start: 12-08-2021 End: 12-08-2021 Patient encounter procedure Luiz MORRISON [facility] Start: 12-01-2021 End: 12-01-2021 Patient encounter procedure Luiz MORRISON [facility] Start: 11-19-2021 End: 11-19-2021 Patient encounter procedure Luiz MORRISON [facility] Start: 11-04-2021 End: 11-04-2021 Patient encounter procedure Luiz MORRISON [facility] Start: 08-31-2021 Office outpatient vi sit 25 minutes Terri Allsop Work Phone: [facility] DO Work Phone: Start: 06-10-2021 Rx Renewal Terri Allso p Work Phone: [facility] 600 DO Work Phone: Start: 03-10-2021 End: 03-10-2021 Emergency department patient visit [facility] Start: 04-11-2018 End: 04-11-2018 Emergency department patient visit [facility] Facility:[facility] Procedures Date Procedure Procedure Detail Performing [...] biopsy Luiz MORRISON Start: 12-08-2021 Urodynamic studies Monserratr shantel MORRISON Start: 10-08-2011 Colonoscopy Cici mccullough OD Work Phone: Start: 10-08-2011 Colonoscopy Luiz VELMA PATRICK Start: 08-10-2011 Colonoscopy Luiz PATRICK Hemorrhoid operation Luiz MORRISON Hemorrhoidectomy Terri Shah Work Phone: Tonsillectomy Luiz MORRISON Total colonoscopy Terri prieto Work Phone: Plan of Treatment Date Care Activity Detail Author Start: 09-03-2033 DTaP/Tdap/Td Vaccine s (2 - Td or Tdap) DTaP/Tdap/Td Vaccines (2 - Td or Tdap) [facility] Start: 09-03-2033 Urine microalbumin profile DTaP,Tdap,Td Vaccine (2 - Td or Tdap) [facility] Start: 06-24-2032 Screening for malign ant neoplasm of colon [facility] Start: 11-23-2024 End: 11-23-2024 Patient encounter procedure 11/23/2024 2:30 PM EDT Office Visit [place] [address] [place] [address] oct/[facility] Ophthal[facility] Comment on above: oct/erm Start: 11-08-2024 End: 11-08-2024 Patient encounter procedure 11/08/2024 9:00 AM EDT Office Visit [facility] [address] [place] [phone] Liliana Waller MD [address] [place] [address] [facility] Start: 09-25-2024 End: 09-25-2024 Patient encounter procedure 09/25/2024 9:00 AM EST Office Visit [facility] [address] [facility] [address] [place] [phone] Delores Ac MD [address] [facility] [address] [place] [address] [facility] Start: 08-20-2024 End: 08-20-2024 Patient encounter procedure 08/20/2024 8:00 AM EST Procedure Visit [facility] [address] [place] [id number] Adam Jack, DPM FACFAS [address] [facility] [place], [place] [id number] [facility] Start: 07-25-2024 End: 07-25-2024 Patient encounter procedure 07/25/2024 8:40 AM EST Office Visit [facility] [address] [place] [phone] Liliana Waller MD [address] [place] [address] Arrived [facility] Comment on above: Arrived Start: 06-04-2024 End: 06-04-2024 Patient encounter procedure [facility] Comment on above: Arrived Start: 05-10-2024 End: 05-10-2024 Patient encounter procedure [facility] Comment on above: Arrived Start: 04-13-2024 End: 04-13-2025 Comprehensive metabolic 2000 panel - Serum or Plasma Comprehensive metabolic panel Lab Routine Acute deep vein thrombosis (DVT) of distal vein of right lower extremity (CMS/HCC) Expected: 04/13/2024 (Approximate), Expires: 04/13/2025 [facility] Work Phone: Comment on above: Expected: 04/13/2024 (Approximate), Expires: 04/13/2025 Start: 04-13-2024 End: 04-13-2024 Patient encounter procedure 04/13/2024 10:40 AM EDT Office Visit [facility] [address] [place] [address] Elyssa Adler MD [address] [place] [address] Arrived [facility] Comment on above: Arrived Start: 04-08-2024 Influenza vaccination Influenza Vacc ine (#1) [facility] Start: 10-29-2023 Zoster Vaccines (2 o f 2) Zoster Vaccines (2 of 2) [facility] Start: 09-30-2023 FUV, Provider: Delores Ac, Status: Pen, Time: 9:00 AM FUV, Provider: Delores Ac, Status: Pen, Time: 9:00 AM [facility] 600 DO Work Phone: Start: 08-08-2023 Advance Directive Discussion Advance Directive Discussion [facility] Start: 04-08-2023 COVID-19 Vaccine ( season) COVID-19 Vaccine ( season) [facility] Start: 09-28-2022 NURSEVST, Provider: ISHA TRINIDAD MACHINERY MECHANIC 1,[id number], Status: Pen, Time: 11:30 AM NURSEVST, Provider: ISHA TRINIDAD MACHINERY MECHANIC 1,[id number], Status: Pen, Time: 11:30 AM [facility] 600 DO Work Phone: Start: 08-31-2022 FUV, Provider: Delores Ac, Status: Pen, Time: 8:40 AM FUV, Provider: Delores Ac, Status: Pen, Time: 8:40 AM [facility] DO Work Phone: Start: 08-03-2022 Pneumococcal Vaccine : 65+ (2 of 2 - PCV) Pneumococcal Vaccine: 65+ (2 of 2 - PCV) [facility] Start: 08-03-2022 Pneumococcal Vaccine : 65+ Years (2 - PCV) Pneumococcal Vaccine: 65+ Years (2 - PCV) [facility] Start: 04-28-2022 [facility] Work Phone: Start: 04-27-2022 Hospital admission [facility] Work Phone: Start: 04-08-2022 Influenza vaccination INFLUENZA (#1) [facility] Start: 01-21-2022 MR prostate wo/w con MR prostate wo/ w con [facility] Start: 10-05-2021 COVID-19 VACCINE (4 - Booster for Moderna series) COVID-19 VACCINE (4 - Booster for Moderna series) [facility] Start: 08-08-2021 ADVANCE DIRECTIVE DISCUSSION ADVANCE DIRECTIVE DISCUSSION [facility] Start: 08-08-2021 DEPRESSION ASSESSMENT DEPRESSION ASS ESSMENT [facility] Start: 07-10-2021 STACIA, Provider : Delores Ac, Status: Pen, Time: 10:10 AM STACIA, Provider: Delores Ac, Status: Pen, Time: 10:10 AM [facility] 600 DO Work Phone: Start: 01-01-2021 PNEUMOCOCCAL: 65+ (1 - PCV) PNEUMOCOCCAL: 65+ (1 - PCV) [facility] Start: 10-07-2012 Colonoscopy COLONOSCOPY [facility] Start: 10-07-2012 COLORECTAL CANCER SCREENING COLORECTAL CANCER SCREENING [facility] Start: 10-07-2012 Screening for malign ant neoplasm of colon [facility] Start: 01-01-2011 PROSTATE CANCER SCREENING DISCUSSION PROSTATE CANCER SCREENING DISCUSSION [facility] Start: 01-01-2011 Prostate specific antigen measurement Prostate Cancer Screening Discussion [facility] Start: 01-01-2006 SHINGRIX VACCINE (1 of 2) SHINGRIX VACCINE (1 of 2) [facility] Start: 01-01-2001 COLOGUARD (FIT-DNA) COLOGUARD (FIT-D NA) [facility] Start: 01-01-[address] COLONOGRAPHY [facility] Start: 01-01-2001 DIABETES SCREEN DIABETES SCREEN [facility] Start: 01-01-2001 Diabetes Screening Diabetes Screenin g [facility] Start: 01-01-2001 FECAL OCCULT BLOOD FECAL OCCULT BLOO D [facility] Start: 01-01-2001 Screening for malign ant neoplasm of colon [facility] Start: 01-01-2001 [facility] Start: 01-01-1991 Lipid panel Lipid Screening [facility] Start: 01-01-1991 LIPID SCREEN LIPID SCREEN [facility] Start: 01-01-1975 Urine microalbumin profile DTAP,TDAP,TD (1 - Tdap) [facility] Start: 01-01-1974 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 gonzalo Disease Visit Annual PCP Team Chronic Disease Visit [facility] Start: 01-01-1974 BP Controlled (<130/80) BP Controlle d (<130/80) [facility] Start: 01-01-1974 Depression Screening Depression Scre ening [facility] Start: 01-01-1974 Diabetes mellitus screening Diabetes Screening [facility] Start: 01-01-1974 HEPATITIS C SCREENING HEPATITIS C [facility] Start: 01-01-1974 Hepatitis C screening Hepatitis C [facility] Start: 1956 Lipid panel Lipid Panel [facility] Start: 1956 Screening for malign ant neoplasm of colon [facility] Start: 1955 Yearly Adult Physical Yearly Adult P hysical [facility] Patient referral [facility] Work Phone: [facility] Immunizations Immunization Date Immunization Notes Care Provider Fa pari 04-14-2024 influenza virus vacc ine, unspecified formulation Liliana Waller MD Work Phone: [facility] 11-05-2023 zoster vaccine recombinant Luiz MORRISON [facility] 09-03-2023 tetanus toxoid, redu davion diphtheria toxoid, and acellular pertussis vaccine, adsorbed Luiz MORRISON [facility] 09-03-2023 zoster vaccine recombinant Luiz MORRISON [facility] 05-19-2023 influenza virus vacc ine, unspecified formulation Luiz MORRISON [facility] 05-19-2023 Influenza, High-dose Seasonal, Quadrivalent, Preservative Free Elyssa Adler MD Work Phone: [facility] 05-27-2022 Fluzone High-Dose Quadrivalent 0.7 ML Intramuscular Suspension Prefilled Syringe Terri Allsop Work Phone: [facility] [employer] DO Work Phone: 05-27-2022 influenza virus vacc ine, unspecified formulation Luiz MORRISON [facility] 08-10-2021 Moderna COVID-19 Vac cine 100 MCG/0.5ML Intramuscular Suspension Terri Powellsoramona Work Phone: [facility] 08-08-2021 SARS-CoV-2 (COVID-19 ) mRNA-1273 vaccine Luiz MORRISON [facility] Comment on above: Result Comment: [facility] 08-03-2021 Fluzone High-Dose Quadrivalent 0.7 ML Intramuscular Suspension Prefilled Syringe Terri Allsop Work Phone: [facility] 600 DO Work Phone: 08-03-2021 influenza virus vacc ine, unspecified formulation Luiz MORRISON [facility] 08-03-2021 pneumococcal polysaccharide vaccine, 23 valent Terri Allsop Work Phone: [facility] 600 DO Work Phone: 2021 Moderna COVID-19 Vac cine 100 MCG/0.5ML Intramuscular Suspension Terri Allsop Work Phone: [facility] 600 DO Work Phone: 12-05-2020 Moderna COVID-19 Vac cine 100 MCG/0.5ML Intramuscular Suspension Terir Allsop Work Phone: [facility] 600 DO Work Phone: 06-26-2020 influenza virus vacc ine, unspecified formulation [employer] [facility] 06-26-2020 influenza, injectabl e, quadrivalent, preservative free Terri Allsop Work Phone: [facility] 600 DO Work Phone: 06-16-2019 influenza virus vacc ine, unspecified formulation [employer] [facility] 06-16-2019 seasonal influenza, intradermal, preservative free Terri Allsop Work Phone: [facility] 600 DO Work Phone: 06-08-2019 influenza virus vacc ine, unspecified formulation [employer] [facility] 06-08-2019 influenza, seasonal, injectable Terri Allsop Work Phone: [facility] 600 DO Work Phone: 06-07-2019 influenza virus vacc ine, unspecified formulation [employer] [facility] 05-08-2018 influenza virus vacc ine, unspecified formulation Terri Allsop Work Phone: [facility] 600 DO Work Phone: 06-08-2016 influenza virus vacc ine, unspecified formulation Terri Allsop Work Phone: [facility] 600 DO Work Phone: 06-08-2016 pneumococcal polysaccharide vaccine, 23 valent Terri Allsop Work Phone: [facility] 600 DO Work Phone: 05-16-2015 influenza virus vacc ine, unspecified formulation Terri Allsop Work Phone: [facility] 600 DO Work Phone: 06-22-2013 influenza virus vacc ine, unspecified formulation Terri Allsop Work Phone: [facility] 600 DO Work Phone: 06-21-2013 pneumococcal polysaccharide vaccine, 23 valent Terri Allsop Work Phone: [facility] 600 DO Work Phone: 05-01-2012 influenza virus vacc ine, whole virus Terri Allsop Work Phone: [facility] 600 DO Work Phone: 05-01-2012 influenza, whole Luiz ANDREW ERS [facility] influenza virus vacc ine, unspecified formulation Terri Allsop Work Phone: [facility] 600 DO Work Phone: Comment on above: 2011 2006 Payers Date Payer Category Payer Self-pay [id number] 2021 Private Health Insurance [employer] [id number] 2018 Unknown 2014 Unknown [id number] 1956 Unknown [id number] [id number]. 356 1956 Unknown [id number] 2.16.840.1.745628.3.579.2. 356 1956 Unknown [id number] 2.16.840.1.099596.3.579.2. 1244 1956 Unknown [id number] 2.16.840.1.011815.3.579.2. 727 1956 Unknown [id number] 2.16.840.1.844213.3.579.2. 727 1956 Unknown [id number] 2.16.840.1.572626.3.579.2. 727 1956 Unknown [id number] 2.16.840.1.568622.3.579.2. 727 1956 Unknown [id number] 2.16.840.1.762521.3.579.2. 1259 1956 Unknown [id number] 2.16.840.1.100816.3.579.2. 1259 1956 Unknown [id number] 2.16.840.1.994039.3.579.2. 125 1956 Unknown [id number] 2.16.840.1.154475.3.579.2. 9 1956 Unknown [id number] 2.16.840.1.433313.3.579.2. 1258 1956 Unknown [id number] 2.16.840.1.842226.3.579.2. 1258 1956 Unknown [id number] 2.16.840.1.726812.3.579.2. 1258 1956 Unknown [id number] 2.16.840.1.472911.3.579.2. 1258 1956 Unknown [id number] 2.16.840.1.291171.3.579.2. 1258 1956 Unknown [id number] 2.16.840.1.982542.3.579.2. 1258 1956 Unknown [id number] 2.16.840.1.282534.3.579.2. 125 Unknown [id number] 2.16.840.1.218231.3.579.2. 531 Social History Date Type Detail Facility [facility] Tobacco smoking consumption unknown [facility] Start: 09-30-2023 End: 04-13-2024 Caffeine use [facility] Work Phone: Start: 11-04-2021 End: 01-04-2023 Tobacco smoking status Never smoked tobacco (finding) [facility] [employer] Tobacco smoking status Ex-smoker (finding ) [facility] [employer] Tobacco smoking status Never [facility] [employer] Start: 09-30-2023 End: 04-13-2024 Sex Assigned At Male [facility] [employer] Start: 1955 Sex Assigned At Male [facility] Start: 04-12-2018 End: 01-04-2023 Tobacco use and exposure Smokeless tobacco non-user [facility] Start: 05-21-2022 End: 04-13-2024 Alcohol intake Lifetime non-drinker (finding) [facility] Start: 08-27-2019 History SDOH Alcohol Frequency 1 [facility] Start: 1955 Sex Assigned At Not on file [facility] Start: 05-11-2022 End: 09-30-2023 Exposure to SARS-CoV-2 (event) Not sure [facility] Start: 01-03-2023 Alcohol Comment caffeine: 2-3 cups per day [facility] Goals Date Patient Goal Desired Activity /State Functional Status Date Assessment Result Facility 06-20-2024 Functional Status N/A [facility] 06-15-2023 Functional Status N/A [facility] 11-03-2022 Functional Status N/A [facility] 06-24-2022 Functional Status N/A [facility] 05-12-2022 Functional Status N/A [facility] 04-28-2022 Functional status Patient at Baseline [facility] Work Phone: 04-01-2022 Functional Status N/A [facility] [place] 03-17-2022 Functional Status N/A [facility] Mental Status Date Assessment Result Facility 04-28-2022 Cognitive function Cognitive Sta tus Patient at Baseline [facility] Work Phone: Clinical Notes 08-15-2020 to 07-25-2024 [...] advised to call when he needs more long-term current use of anticoagulant Essential hypertension (CMS/HCC) Stable, continue to monitor. No change in regimen. PVD (peripheral vascular disease) (CMS/HCC) - as above BMI 40.0-44.9, adult (CMS/HCC) Morbid obesity (CMS/HCC) - continue to monitor weight documented in this encounter [facility] 06-20-2024 Hospital Discharge instructions Patient Education 06/20/2024 [...] urethra. Follow these instructions at home: Take xlch-lmc-iukykzd and prescription medicines only as told by [...] provider. Document Revised: 02/10/2022 Document Reviewed: 02/10/2022 Health Benefits Direct Patient Education 2023 [employer]. Follow Up Care 06/15/2023 14:27:36 With:TAMIKO SAEZ, Luiz Jackson, URL Address: [facility] [address] , [place] [address]- When: Unknown [facility] 06-20-2024 Evaluation + Plan note Diagnostic Tests PendingPSA Total 06/20/24 [facility] 06-20-2024 Note Patient Education Urology Benign [...] Follow these instructions at home: ??? Take jhxj-izb-smwizqt and prescription medicines only as told by [...] do not get (more content not included)... [facility] 06-13-2024 Telephone encounter Note HR OOO, Rx sent. [facility] 06-13-2024 Miscellaneous Notes HR OOO, Rx sent. documented in this encounter [facility] 06-04-2024 History of Present illness Narrative Images [...] subungual debris. They were painful to palpation 13520 on the right 69874 on the left. VASC: DP /PT were nonpalpable bilateral. Capillary refill time < 3 seconds Digits 1-5 bilateral NEURO: Macon Osiris 5.07 monofilament was intact B/L. Vibratory [...] 10. ROSA Redmond documented in this encounter [facility] 06-01-2024 Note Date of Procedure 06/01/2024. 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 Interpretation Right Eye Findings include Epiretinal [...] any questions please contact our office at [phone]. After office hours or on the weekend, please call Dr. Decker on his cell phone at [phone]. documented in this encounter [facility] 06-01-2024 Note HNO ID: [id number] Author: JOSSELIN DECKER MD Service: ? Author [...] agree with all of its relevant components. [facility] 06-01-2024 History of Present illness Narrative ASSESSMENT/PLAN: [...] its relevant components. documented in this encounter [facility] 05-10-2024 History of Present illness Narrative [...] of distal vein of right lower extremity ([facility]/HCC) (Primary) Stable, continue to monitor. No change in regimen. Continue to follow w/ vascular long-term current use of anticoagulant Cardiomyopathy, unspecified type (CMS/HCC) Stable, continue to monitor. No change in regimen. PVD (peripheral vascular disease) (CMS/HCC) Stable, continue to monitor. No change in regimen. Continue to follow w/ vascular Essential hypertension (CMS/HCC) Stable, continue to monitor. No change in regimen. BMI 40.0-44.9, adult (CMS/HCC) Morbid obesity (CMS/HCC) - continue to monitor weight documented in this encounter [facility] 04-13-2024 History of Present illness Narrative Images [...] spontaneously. Earlier this year, he drove to [place] [facility], but has not taken any long car [...] any other medications at this time. 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 Gurrola, a vascular [...] Comprehensive metabolic panel; Future Cardiomyopathy, unspecified type (CMS/HCC) PVD (peripheral vascular disease) (CMS/HCC) Health Maintenance Due Topic Date Due Influenza Vaccine (1) 04/08/2024 documented in this encounter [facility] 09-30-2023 History of Present illness Narrative Subjective [...] compliant Delores Ac MD, [facility] Review of Systems All other systems [...] Attestation By signing my name below, Ibeti Scribmyles attest that this documentation has been prepared [...] discussion and plan. documented in this encounter [facility] Work Phone: 09-30-2023 Instructions Kitty Estes LPN [...] Increase physical activity. documented in this encounter [facility] Work Phone: 06-15-2023 Hospital Discharge instructions Patient [...] urethra. Follow these instructions at home: Take sppw-csw-qxfnfrp and prescription medicines only as told by [...] provider. Document Revised: 02/10/2022 Document Reviewed: 02/10/2022 Health Benefits Direct Patient Education 2022 [employer]. 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 Follow these instructions at home: Take wzmz-ynb-wfgkisy and prescription medicines only as told by [...] 07/25/2006 Document Revised: 06/19/2019 Document Reviewed: 08/29/2017 [employer] Patient Education 2020 [employer]. Follow Up Care 07/29/2022 09:30:30 With:TAMIKO SAEZ, Luiz Jackson, URL Address: [facility] [address] , [place] [address]- When: Unknown [facility] 11-17-2022 Hospital Discharge instructions Patient [...] a slower pace than normal. ?Eat soft, ditb-he-gslxfh foods. Take vflm-dwv-ndnkdhe or prescription medicines only as told by [...] 03/08/2005 Document Revised: 05/17/2018 Document Reviewed: 10/05/2016 Elsevier Patient Education 2020 [employer]. Follow Up Care 02/15/2022 10:08:03 With:William Brush Address:Unknown When: Unknown Comments:will call with results [facility]10-14-2022 Instructions* Patient Instructions* Cici Merida, OD [...] delay. Recommended yearly exams. [facility] History of Present illness Narrative* Cici [...] and examined this patient. [facility] Hospital Discharge instructions Patient Education 05/12/2022 [...] Follow these instructions at home: Medicines Take hkjp-tjy-winrceh and prescription medicines only as told by [...] prevent or treat constipation, such as: ?Take vgkk-zth-pwhadqf or prescription medicines. ?Eat foods that are [...] 07/25/2006 Document Revised: 11/14/2019 Document Reviewed: 04/25/2019 Health Benefits Direct Patient Education 2019 [employer]ono Follow Up Care 04/30/2022 08:49:28 With:TAMIKO SAEZ, Luiz Jackson, URL Address: [facility] [address] , [place] [address] [phone] When:08/12/2022 [facility] 08-10-2022 Hospital Discharge instructions Patient [...] including vitamins, herbs, eye drops, creams, and oaue-jzm-itvsxri medicines. Any problems you or family members [...] provider tells you to take them. Taking xzti-pzv-ivknywl medicines, vitamins, herbs, and supplements. Eating and [...] 07/25/2006 Document Revised: 11/14/2019 Document Reviewed: 04/25/2019 [employer] Patient Education 2020 Health Benefits [employer] Follow Up Care 02/12/2022 10:45:59 With:TAMIKO SAEZ, Luiz Jackson, URL Address: [facility] [address] , [place] [address]- [phone] When: Unknown Comments:schedule TURP [facility] 07-26-2022 Hospital Discharge instructions Patient Education [...] for your post-operative appointment in 1-2 weeks [phone] or [phone] Follow Up Care 02/12/2022 10:36:38 With:Luiz MORRISON Address: [facility] [address], [place] [address]- Business (1) When: Unknown Comments:Appointment has already been scheduled [facility]07-18-2022 Evaluation note* Encounter Date Diagnosis Assessment [...] G47.61) Feb, Morbid obesity (ICD-10 - E66.01) [facility] Other 05-16-2022 Hospital Discharge instructions Patient Education [...] Follow these instructions at home: Medicines Take xbiw-wyy-juwyapg and prescription medicines only as told by [...] or the blood stops without treatment. Take wzyl-urh-xbernyj and prescription medicines only as told by your health care provider. Drink enough fluid to keep your urine clear or pale yellow. This information is not intended to replace advice given to you by your health care provider. Make sure you discuss any questions you have with your health care provider. Document Released: 07/25/2006 Document Revised: 12/19/2019 Document Reviewed: 08/27/2017 [employer] Patient Education 2020 Health Benefits [employer] Follow Up Care 12/01/2021 08:55:58 With:TAMIKO SAEZ, Luiz Jackson, URL Address: [facility] [address] , [place] [address]- When: Unknown Comments:Schedule TURP. [facility] 05-06-2022 Hospital Discharge instructions Patient Education [...] ?Hypothyroidism. ?Polycystic ovarian syndrome (PCOS). ?Binge-eating disorder. ?[place] syndrome. Taking certain medicines, such as steroids, [...] and how much exercise you get. Take jtyc-hrf-euaaqlc and prescription medicines only as told by [...] 09/01/2005 Document Revised: 03/29/2019 Document Reviewed: 03/29/2019 Health Benefits Direct Patient Education 2019 [employer]. [facility] [place] 04-26-2022 Evaluation + Plan noteExtracted from: Title:Urology [...] list: All Problems asthma / SNOMED CT 828842586 / Confirmed Hypocalcemia / SNOMED CT 1405150 / Confirmed Hypokalemia / SNOMED CT 95763700 / Confirmed Obesity / SNOMED CT 6644074175 / Confirmed Chronic heart failure / SNOMED CT 55896110 / Confirmed Hyperlipidemia / SNOMED CT 53535763 / Confirmed Hyperglycemia / SNOMED CT 378961083 / Confirmed Hypertension / SNOMED CT 98126950 / Confirmed Male hypogonadism / SNOMED CT 97629450 / Confirmed Onychomycosis / SNOMED CT 7146009259 / Confirmed Hypothyroid / SNOMED CT 08951662 / Confirmed Depression / SNOMED CT 36953936 / Confirmed Heart disease / SNOMED CT 58893613 / Confirmed Histories Past Medical History: Active asthma (553237590): Onset in 1970 at 15 years. Resolved Depression (300.4): Onset on 12/10/2009 at 54 years. Resolved. Comments: 12/10/2009 EDT 10:06 EDT - Family History: Cardiac arrhythmia Father () Malignant lymphoma Mother () Comments: 12/07/2009 0:16 EDT - Merlyn Sampson RN parathyroid cancer Procedure history: Colonoscopy (990153060) on 10/08/2011 at 56 Years. Colonoscopy (105397939) on 08/10/2011 at 56 Years. Tonsillectomy (836345184). Social History Social & Psychosocial Habits Alcohol [...] Appointments Appointment Date:12/03/2021 08:15:00 AM Scheduled Provider: Location:[facility] Appointment Type:Urology CALL PAT FT Appointment Date:12/08/2021 08:00:00 AM Scheduled Provider: Location:[facility] Appointment Type:Urology FT Appointment Date:12/11/2021 08:20:00 AM Scheduled Provider:William Brush MD Location:[facility] Appointment Type:[place] [address] Appointment Date:12/22/2021 08:00:00 AM Scheduled Provider:Luiz MORRISON MD Location:[facility] [place] Appointment Type:URO Office Visit Diagnostic Tests Pending * UroVysion Fish and Urine Cyto ([facility]) 12/01/[address] [facility]04-26-2022 Hospital Discharge instructions Patient Education 12/01/2021 [...] [facility] [address], [place] [address]- Business (1) When: Unknown Comments:Office will call to schedule follow up [facility]03-30-2022 Evaluation + Plan note Future Scheduled Tests Radiology* CT Urogram 11/04/21 [facility] 03-30-2022 Hospital Discharge instructions Patient Education 11/04/2021 11:30:36 [...] Follow these instructions at home: Medicines Take pztn-wxa-qbivwev and prescription medicines only as told by [...] or the blood stops without treatment. Take kjjv-fdt-lfiesfz and prescription medicines only as told by your health care provider. Drink enough fluid to keep your urine clear or pale yellow. This information is not intended to replace advice given to you by your health care provider. Make sure you discuss any questions you have with your health care provider. Document Released: 07/25/2006 Document Revised: 12/19/2019 Document Reviewed: 08/27/2017 Health Benefits Direct Patient Education 2019 [employer]. Follow Up Care 10/06/2021 15:23:45 With:TAMIKO SAEZ, Luiz Jackson, URL Address: [facility] [address] , [place] [address]- [phone] When: Unknown [facility] [place] 01-08-2021 History of Past illness Narrative* Problem Noted Date Resolved Date Epiretinal membrane (ERM) of right eye 1 09/04/2021 documented as of this encounter (statuses as of 05/21/2022) [facility] Future App[facility]ments Appointment Date:12/01/2021 08:00:00 AM Scheduled Provider: Location:[facility] Appointment Type:Urology FT Appointment Date:12/11/2021 08:20:00 AM Scheduled Provider:William Brush MD Location:[facility] Appointment Type:[place] [address] [facility] [address] Future Appointments Appointment Date:12/11/2021 08:20:00 AM Scheduled Provider:William Brush MD Location:[facility] Appointment Type:[facility] Appointment Date:12/22/2021 08:00:00 AM Scheduled Provider:Luiz MORRISON MD Location:[facility] [place] Appointment Type:URO [facility] Future Appointments Appointment Date:12/11/2021 08:20:00 AM Scheduled Provider:William Brush MD Location:[facility] Appointment Type: Appointment Date:12/22/2021 08:00:00 AM Scheduled Provider:Luiz MORRISON MD Location:[facility] [place] Appointment Type:URO Office Visit Diagnostic Tests Pending * Testosterone F&T 12/10/[address] Future Appointments Appointment Date:12/22/2021 08:00:00 AM Scheduled Provider:Luiz MORRISON MD Location:[facility] [place] Appointment Type:URO Office Visit Appointment Date:02/19/2022 12:30:00 PM Scheduled Provider: Location:[facility] Appointment Type:Surgery FT [facility] [place] Evaluation + Plan note Future Appointments Appointment Date:02/19/2022 12:30:00 PM Scheduled Provider: Location:[facility] Appointment Type:Surgery FT Diagnostic Tests Pending * PSA Total 12/22/21 [facility] Evaluation + Plan note Future Appointments Appointment Date:02/19/2022 12:30:00 PM Scheduled Provider: Location:[facility] App[facility]ment [facility] Future Appointments Appointment Date:03/02/2022 09:45:00 AM Scheduled Provider: Location:[facility] Appointment Type:Urology FT Appointment Date:03/17/2022 02:00:00 PM Scheduled Provider:Luiz MORRISON MD Location:[facility] [place] Appointment Type:URO Office Visit Appointment Date:06/25/2022 12:30:00 PM Scheduled Provider: Location:[facility] App[facility]ment [facility] Future Appointments Appointment Date:03/17/2022 02:00:00 PM Scheduled Provider:Luiz MORRISON MD Location:[facility] [place] Appointment Type:URO Office Visit Appointment Date:06/25/2022 12:30:00 PM Scheduled Provider: Location:[facility] Appointment Type:Surgery FT Diagnostic Tests Pending * Prostate Histology ([facility]) 03/02/[address] Future Appointments Appointment Date:06/25/2022 12:30:00 PM Scheduled Provider: Location:[facility] Appointment Type:Surgery FT [facility] Evaluation + Plan note Future Appointments Appointment Date:04/06/2022 02:30:00 PM Scheduled Provider:Milo Gonzales MD Location:[facility] Appointment Type:Pain Management - New (FT) Appointment Date:06/25/2022 12:30:00 PM Scheduled Provider: Location:[facility] Appointment Type:Surgery FT [facility] [place] Evaluation + Plan note Future Appointments Appointment Date:05/12/2022 08:00:00 AM Scheduled Provider:Luiz MORRISON MD Location:[facility] [place] Appointment Type:URO Office Visit Appointment Date:06/25/2022 12:30:00 PM Scheduled Provider: Location:[facility] Appointment Type:Surgery FT [facility] Evaluation + Plan note Future Appointments Appointment Date:06/24/2022 12:30:00 PM Scheduled Provider: Location:[facility] Appointment Type:Surgery FT Appointment Date:08/11/2022 10:30:00 AM Scheduled Provider:Luiz MORRISON MD Location:[facility] Appointment Type:URO Office Visit [facility] Evaluation + Plan note Future Appointments Appointment Date:08/11/2022 10:30:00 AM Scheduled Provider:Luzi MORRISON MD Location:[facility] [place] Appointment Type:URO [facility] Future Appointments Appointment Date:11/03/2022 03:00:00 PM Scheduled Provider:Luiz MORRISON MD Location:[facility] [place] Appointment Type:URO [facility] Future Appointments Appointment Date:06/15/2023 01:15:00 PM Scheduled Provider:Luiz MORRISON MD Location:[facility] Appointment Type:URO Office Visit Diagnostic Tests Pending * PSA Total 11/03/22 [facility] aluation + Plan note Future Appointments Appointment Date:06/15/2023 01:15:00 PM Scheduled Provider:Luiz MORRISON MD Location:[facility] [place] Appointment Type:URO Office Visit Diagnostic Tests Pending * PSA Total 04/30/[address] [facility] [address] Future Appointments Appointment Date:06/20/2024 01:00:00 PM Scheduled Provider:Lu[facility]ISON [facility] Office Visit Diagnostic Tests Pending * PSA Total 06/15/23 [facility] Evaluation + Plan note Future Appointments Appointment Date:06/20/2024 01:00:00 PM Scheduled Provider:Luiz MORRISON MD Location:[facility] Appointment Type:URO [facility] noteNo assessment information available [facility] Work Phone: evaluation note* Diagnosis Epiretinal membrane (ERM) of both eyes- Primary Floppy eyelid syndrome of both eyes Combined forms of age-related cataract of both eyes Other and combined forms of senile cataract Posterior vitreous detachment of both eyes Vitreous degeneration Vitreous floaters of both eyes documented [facility] encounter [facility] Diagnosis Essential hypertension Unspecified essential hypertension Non-ischemic cardiomyopathy (CMS/HCC) Other primary cardiomyopathies Hyperlipidemia, unspecified hyperlipidemia type Obstructive sleep apnea, adult Morbid obesity with BMI of 40.0-44.9, adult ([facility]) documented in this encounter [facility] Work Phone: Evaluation note* Diagnosis Onset Date Resolution Status Hypertension acute Sleep apnea with use of cont inuous positive airway pressure (CPAP) acute Hypertension acute Sleep apnea with use of cont inuous positive airway pressure (CPAP) acute [facility] Work Phone: Evaluation note* Diagnosis Acute deep vein thrombosis (DVT) of distal vein of right lower extremity ([facility]/HCC)- Primary long-term current use of anticoagulant Cardiomyopathy, unspecified type ([facility]) PVD (peripheral vascular disease) ([facility]) Unspecified peripheral vascular disease Essential hypertension ([facility]) Unspecified essential hypertension BMI 40.0-44.9, adult ([facility]) Morbid obesity ([facility]) Morbid obesity documented in this encounter [facility] HealthcareEvaluation [facility]* Diagnosis Epiretinal membrane (ERM) of both eyes- Primary Floppy eyelid syndrome of both eyes Combined form of age-related cataract, both eyes Benign prostatic hyperplasia without lower urinary tract symptoms Anxiety disorder, unspecified type Essential hypertension Unspecified essential hypertension Mixed hyperlipidemia Obstructive sleep apnea syndrome Obstructive sleep apnea (adult) (pediatric) [facility] Diagnosis Onychomycosis- Primary Dermatophytosis of nail Pain in left toe(s) Pain in right toe(s) documented in this encounter [facility] HealthcareEvaluation note* Diagnosis Primary hypertension ([facility]) Unspecified essential hypertension Seasonal allergies Allergic rhinitis, cause unspecified documented in this encounter [facility] HealthcareEvaluation note* Diagnosis Acute deep vein thrombosis (DVT) of distal vein of right lower extremity ([facility]/HCC)- Primary long-term current use of anticoagulant Essential hypertension ([facility]) Unspecified essential hypertension PVD (peripheral vascular disease) ([facility]) Unspecified peripheral vascular disease BMI 40.0-44.9, adult ([facility]) Morbid obesity ([facility]) Morbid obesity documented in this encounter [facility] HealthcareEvaluation note* Diagnosis Acute deep vein thrombosis (DVT) of distal vein of right lower extremity ([facility])- Primary Cardiomyopathy, unspecified type (CMS/HCC) PVD (peripheral vascular disease) (CMS/HCC) Unspecified peripheral vascular disease documented in this encounter [facility] Narrative - Reported* Type Description Date Medical History CARDIOMYOPATHY Medical History HYPERTENSION Medical History HYPOKALEMIA Medical History HYPERLIPIDEMIA Medical History FATTY LIVER Medical History ASTHMA Medical History SLEEP APNEA Medical History DEPRESSION Medical History RESTLESS LEG SYNDROME Surgical History HEMMRHOIDECTOMY 1990 Surgical History ANGIOGRAM [facility] Other Hospital course Narrative No data available for this section [facility] Hospital Discharge instructions No data available for this section [facility] No data available for this section [facility] (narrative)* Consultation (Routine) - Authorized Specialty Diagnoses / Procedures Referred By Contac t Referred To Contact Cardiology Diagnoses Essential hypertension Non-ischemic cardiomyopathy (CMS/HCC) Procedures Follow Up In Cardiology Delores Ac MD [address] [place] [address] 2, [place] [address] Delores Ac MD [address] [place] [address] 2, [address] [address] Referral ID Status Reason Start Date Expiration Date V isits Requested Visits Authorized [id number] Authorized 09/30/2023 09/29/2024 1 1 [facility] Work Phone: Summary Purpose Family History No [...] 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 He reports no symptoms of dyspnea or [...] section and content) DATE CREATED AUTHOR 05/19/2018 [facility] DATE CREATED AUTHOR AUTHOR'S ORGANIZ ATION 03/14/2021 [facility] DATE CREATED AUTHOR AUTHOR'S ORGANIZ ATION 09/29/2022 [facility] DATE CREATED AUTHOR AUTHOR'S ORGANIZ ATION 09/29/2022 [facility] DATE CREATED AUTHOR AUTHOR'S ORGANIZ ATION 04/17/2024 [facility] DATE CREATED AUTHOR AUTHOR'S ORGANIZ ATION 06/01/2024 [facility] DATE CREATED AUTHOR AUTHOR'S ORGANIZ ATION 06/03/2024 [facility] DATE CREATED AUTHOR AUTHOR'S ORGANIZ ATION 06/22/2024 [facility] DATE CREATED AUTHOR AUTHOR'S ORGANIZ ATION 07/27/2024 [facility] DATE CREATED AUTHOR AUTHOR'S ORGANIZ ATION 07/28/2024 [facility] EPIC <item> Privacy Markings (unrecogniz [...] Active Burak Rangel MD Attending Provider Active Manager Procurement Relationship Specialty Start Date End Date Terri Santos DO [address] [place] [address] PCP - General Family Medicine 04/11/18 Manager Procurement Relationship Specialty Start Date End Date Terri Santos DO [address] [place] [id number] PCP - General 09/11/20 Team Status: Inactive [...] May 07, 2024 End: May 07, 2024 Manager Procurement Relationship Specialty Start Date End Date Terri Santos DO PCP - Medical Organ Commercial 08/08/09 08/07/99 Liliana Waller MD [address] [place] [address] PCP - General Family Medicine 03/26/24 Manager Procurement Relationship Specialty Start Date End Date Terri Santos DO PCP - Medical Organ Commercial 08/08/09 08/07/99 Liliana Waller MD [address] [place] [address] PCP - General Family Medicine 03/26/24 Manager Procurement Relationship Specialty Start Date End Date Terri Santos DO [address] [place] [address] PCP - General Family Medicine 04/11/18 Jordyn Zhu OD [address] [place] [address] Referring Optometry 05/27/23 Manager Procurement Relationship Specialty Start Date End Date Terri Santos DO PCP - Medical Organ Commercial 08/08/09 08/07/99 Liliana Waller MD [address] [place] [address] PCP - General Family Medicine 03/26/24 Manager Procurement Relationship Specialty Start Date End Date Terri Santos DO PCP - Medical Organ Commercial 08/08/09 08/07/99 Liliana Waller MD [address] [place] [address] PCP - General Family Medicine 03/26/24 Manager Procurement Relationship Specialty Start Date End Date Liliana Waller MD [address] [place] [address] PCP - General Family Medicine 03/26/24 Liliana Waller MD [address] [place] [address] PCP - Medical Organ Commercial 08/08/09 08/07/99 Manager Procurement Relationship Specialty Start Date End Date Liliana Waller MD [address] [place] [address] PCP - General Family Medicine 03/26/24 Liliana Waller MD [address] [place] [address] PCP - Medical Organ Commercial 08/08/09 08/07/99 Manager Procurement Relationship Specialty Start Date End Date Terri Santos DO PCP - Medical Organ Commercial 08/08/09 08/07/99 Liliana Waller MD [address] [place] [address] PCP - General Family Medicine 03/26/24 Manager Procurement Relationship Specialty Start Date End Date Terri Santos DO PCP - Medical Organ Commercial 08/08/09 08/07/99 Liliana Waller MD [address] [place] [address] PCP - General Family Medicine 03/26/24 Goals [...] this informatio n is protected by the [facility] Confidentiality of Alcohol and Drug Abuse Patient Records regulations: The Federal rules restrict any use of the information to criminally investigate or prosecute any alcohol or drug abuse patient.[facility] the event this information is protected by the Federal Confidentiality of Alcohol and Drug Abuse Patient Records regulations: The Federal rules restrict any use of the information to criminally investigate or prosecute any alcohol or drug abuse patient.[facility] FOR RECORDS PERTAINING TO PATIENTS WHO [...] BE BASED ON THE PRIMARY CLINICAL RECORDS. [facility]. provides no warranty or guarantee of the accuracy or completeness of information in this document.
== END 2024-08-03 08:57 | disposition home or self-care (01) ==
LOC: VC 08:11
PROVIDERS: PCP Radiology Diagnostic Radiology; Visit Provider Radiology Diagnostic Radiology
DX: I80.01 Phlebitis and thrombophlebitis of superficial vessels of right lower extremity (principal)
CPT/HCPCS: 93971; G0463

== ENCOUNTER 2024-08-24 13:03 | Outpatient (OUT) | payer OTHER, SELFPAY ==
--- NOTE | 2024-08-24 07:34 | V.VEINS.HP ---
Vital Signs 08/24/24 13:18 BP 140/68 BP Location Left Brachial BP Position Sitting BP Cuff Size Adult BP Source Manual Cuff Respiration 20 Pulse 77 Pulse Source Monitor Pulse Oximetry (%) 99 Oxygen Delivery Method Room Air Comment The patient's blood pressure is elevated. Varicose Veins Patient in this day for Varithena/microfoam chemical ablation left leg. Rahul Smith MD personally performed the services described in this documentation, as scribed by Destini Carlin RN in my presence and it is both accurate and complete. Destini Smith RN, am scribing for, and in the presence of, Dr. Rahul Pedro and in the presence of the patient. thigh: bilateral, knee: bilateral, calf: bilateral, ankle: bilateral and delaney: bilateral aching and dull 3 2 years Worsened in recent months: Yes walking elevating extremities and compression stockings Reports heaviness, restless legs, limb pain, edema and leg edema History of lower extremity trauma: No Superficial thrombophlebitis: No Family history of varicose veins: no Has patient had previous lower extremity venous surgery: No Patient has previously received the following treatment(s) for lower extremity varicose veins: Reports none Does patient have a history of : not applicable Does patient intend to have future pregnancies: not applicable Has patient had lower extremity venous scan with relux testing: Yes Support hose used: Yes Problems walking or doing physical activity: Yes How does it affect you: unable to walk long distances Do you walk much: No Do you stand much: Yes Medication compliance: good Review of Systems ROS Narrative Rahlu Smith MD personally performed the services described in this documentation, as scribed by Destini Carlin RN in my presence and it is both accurate and complete. Destini Smith RN, am scribing for, and in the presence of, Dr. Rahul Pedro and in the presence of the patient. Status of ROS 10 or more systems reviewed and unremarkable except as noted in history and below Cardiovascular Reports: edema and swelling of feet/ankles Musculoskeletal Reports: extremity pain, extremity swelling, joint pain, joint swelling and muscle cramps Integumentary/Breast Reports: rash, itching and redness [facility] Medical History (Updated 06/01/24 @ 07:33 by Jane Farris) Phlebitis and thrombophlebitis of superficial vessels of left lower extremity ?I80.02 - Phlebitis and thrombophlebitis of superficial vessels of left lower extremity (ICD-10) Phlebitis and thrombophlebitis of superficial vessels of right lower extremity ?I80.01 - Phlebitis and thrombophlebitis of superficial vessels of right lower extremity (ICD-10) Hemorrhoids, internal ?K64.8 - Other hemorrhoids (ICD-10) Pain due to varicose veins of both lower extremities ?I83.813 - Varicose veins of bilateral lower extremities with pain (ICD-10) Tinea pedis ?B35.3 - Tinea pedis (ICD-10) Sleep apnea ?G47.30 - Sleep apnea, unspecified (ICD-10) Restless leg ?G25.81 - Restless legs syndrome (ICD-10) Onychomycosis ?B35.1 - Tinea unguium (ICD-10) Obesity ?E66.9 - Obesity, unspecified (ICD-10) Left ventricular failure ?I50.1 - Left ventricular failure, unspecified (ICD-10) Hypokalemia ?E87.6 - Hypokalemia (ICD-10) Hyperglycemia ?R73.9 - Hyperglycemia, unspecified (ICD-10) Hyperlipemia ?E78.5 - Hyperlipidemia, unspecified (ICD-10) Accelerated essential hypertension ?I10 - Essential (primary) hypertension (ICD-10) Elevated PSA ?R97.20 - Elevated prostate specific antigen [PSA] (ICD-10) Cardiomyopathy ?I42.9 - Cardiomyopathy, unspecified (ICD-10) Anxiety ?F41.9 - Anxiety disorder, unspecified (ICD-10) Surgical History (Updated 07/27/24 @ 11:22 by Gerald Lopez) S/P sclerotherapy of varicose veins ?Z98.890 - Other specified postprocedural states (ICD-10) ?Z86.79 - Personal history of other diseases of the circulatory system (ICD-10) Status post laser ablation of incompetent vein ?Z98.890 - Other specified postprocedural states (ICD-10) Status post laser ablation of incompetent vein ?Z98.890 - Other specified postprocedural states (ICD-10) Status post laser ablation of incompetent vein ?Z98.890 - Other specified postprocedural states (ICD-10) Status post laser ablation of incompetent vein ?Z98.890 - Other specified postprocedural states (ICD-10) S/P TURP ?Z90.79 - Acquired absence of other genital organ(s) (ICD-10) Family History (Updated 04/06/24 @ 10:04 by Destini Carlin, RN) Other Family history of CHF (congestive heart failure) Family history of cancer Family history of hypertension Family history of myocardial infarction Social History (Updated 04/06/24 @ 10:05 by Destini Carlin, RN) Within the past year, how often did you have a drink containing alcohol: never Score interpretation: A score less than 4 is consistent with normal alcohol consumption. Smoking status: Never smoker Non-prescribed substance use: denies use Meds Home Medications and Allergies Home Medications ?Medication ?Instructions ?Recorded ?Confirmed ?Type amiloride 5 mg tablet 5 mg PO DAILY 04/06/24 04/06/24 History amlodipine 10 mg tablet 10 mg PO DAILY 04/06/24 04/06/24 History aspirin 325 mg tablet 325 mg PO DAILY 04/06/24 04/06/24 History carvedilol 25 mg tablet (Coreg) 25 mg PO BID 04/06/24 04/06/24 History doxazosin 4 mg tablet (Cardura) 4 mg PO QPM 04/06/24 04/06/24 History finasteride 5 mg tablet 5 mg PO DAILY 04/06/24 04/06/24 History hydralazine .Route DAILY 04/06/24 History hydrochlorothiazide 25 mg tablet 25 mg PO DAILY 04/06/24 04/06/24 History losartan 100 mg tablet 100 mg PO DAILY 04/06/24 04/06/24 History lovastatin 30 mg PO QAM 04/06/24 04/06/24 History montelukast 10 mg tablet 10 mg PO DAILY 04/06/24 04/06/24 History niacin 500 mg capsule,extended 500 mg PO DAILY 04/06/24 04/06/24 History release paroxetine HCl 20 mg tablet 20 mg PO DAILY 04/06/24 04/06/24 History potassium chloride 10 mEq 10 meq PO DAILY 04/06/24 04/06/24 History tablet,extended release (Klor-Con) apixaban 5 mg tablet (Eliquis) 5 mg PO BID 05/04/24 05/04/24 History Allergies Allergy/AdvReac Type Severity Reaction Status Date / Time clarithromycin Allergy Unknown Unknown Verified 04/06/24 09:39 Exam Narrative Exam Narrative: Rahul Smith MD personally performed the services described in this documentation, as scribed by Destini Carlin RN in my presence and it is both accurate and complete. Destini Smith RN, am scribing for, and in the presence of, Dr. Rahul Pedro and in the presence of the patient. Constitutional Documenting provider has reviewed patient's vital signs: yes Common normals: oriented x3 Nutritional appearance: overweight Lymph Lymphatic: no lymphedema noted Cardio Peripheral pulses: posterior tibial pulses present and dorsalis pedis pulses present Extremity General: calf tenderness, edema and other findings Right lower extremity: lower leg Right lower leg: inspection and palpation Left lower extremity: lower leg Left lower leg: inspection and palpation Neuro Common normals: oriented x3 Assessment and Plan Assessment and Plan (1) Pain due to varicose veins of both lower extremities: Plan The patient tolerated the procedure well without complication.? The patient verbalizes understanding and states they will comply.? Patient was given post-procedure instructions. Patient was discharged in good condition.? Scheduled to undergo follow-up evaluation on 08/30/24. Rahul Smith MD personally performed the services described in this documentation, as scribed by Destini Carlni RN in my presence and it is both accurate and complete. Destini Smith RN, am scribing for, and in the presence of, Dr. Rahul Pedro and in the presence of the patient. Procedures Procedure Instructions Procedures leg microfoam chemical ablation/Varithena: Risks and benefits of the procedure were discussed at length and informed written consent was obtained.? Time-out procedure was performed and the correct patient and procedure were confirmed.? Staff present during time-out: Destini Carlin RN and Rahul Pedro MD.? Patient prepped and procedure performed in usual sterile fashion.? Patient was placed in Trendelenburg prior to Polidocanol/Varithena injections. Sclerosing Agent:?? 4cc 1% Polidocanol/Varithena Site Injected: left leg Number of Injections:? 5cc into 5mm vein left distal medial lower leg 5cc into 5mm vein left mid medial lower leg 5cc into 4.5mm vein left distal anterior thigh The patient tolerated the procedure well without complication.? Hemostasis was obtained and thigh-high compression stocking was applied with foam pads.? Instructed patient to wear stocking for at least 96 hours and sleep with it and only remove for showering.? The patient was instructed to? wear stocking for 2 weeks.? Patient verbalizes understanding and states they will comply.? Patient was given post-procedure instructions. Patient was discharged in good condition.? Scheduled to undergo limited venous ultrasound and? exam on 08/30/24. IRahul MD personally performed the services described in this documentation, as scribed by Destini Carlin RN in my presence and it is both accurate and complete. IDestini RN, am scribing for, and in the presence of, Dr. Rahul Pedro and in the presence of the patient.
--- NOTE | 2024-08-24 07:47 | P.DS_ITS ---
Discharge Plan Discharge Disposition: Home, Self-Care Outpatient Diagnostics: [facility] Facility EST LMTD (Routine) Timeframe: 2 Weeks Facility: [facility] - Location: Vein Center Ordered By: Guillermo Gurrola VC EXT Venous LT Limited (Routine) Timeframe: 2 Weeks Facility: [facility] - Location: Vein Center Ordered By: Guillermo Gurrola Follow Up Appointments: 08/30/24 Plan of Treatment: u/s follow up following varithena left leg 08/24/24 Patient Instructions: Polidocanol (By injection) (Jorge Bautista) Print Language: Norwegian Discharge Date/Time: 08/24/24 14:08
--- NOTE | 2024-08-24 13:04 | VEIN_ITS ---
[address] [address] Patient Name: RACHEL NGUYEN MRN: [id number] date: 1955 Sex: M Assigned Patient Location: [facility] Current Patient Location: Accession/Order Number: [id number] Exam Date: 08/24/2024 13:23 Report Date: 08/24/2024 15:10 At the request of: MARY RATLIFF Procedure: VC INJ Foam Sclerosant WUS SHOWER ROOM ATTENDANT PROCEDURE: VC INJ Foam Sclerosant WUS SHOWER ROOM ATTENDANT HISTORY: I83.813 - Varicose veins of bilateral lower extremities w... Pre-operative Diagnosis: CEAP class C4a venous insufficiency with pain, tenderness, edema and incompetent branch saphenous vein(s), chronic venous insufficiency left leg secondary to venous incompetence Post-operative Diagnosis: CEAP class C4a venous insufficiency with pain, tenderness, edema and incompetent branch saphenous vein(s), chronic venous insufficiency left leg secondary to venous incompetence Procedure Performed: 1. Ultrasound-guided microfoam chemical ablation with Varithenaregistered 2. Intraoperative ultrasound guidance Physician: Mary Ratliff M.D. Anesthesia: None Indications for Procedure: 69 year old male. Symptoms including lower extremity pain, swelling, dilated bulging veins, skin wounds for many years despite conservative medical therapy including medical compression stockings, exercise and analgesics. Prior procedures include endovenous laser ablation and microfoam chemical ablation. Multiple incompetent varicosities of the left leg. Duplex scan showed reflux and enlarged diameters up to 5 mm. The patient underwent informed consent including management options where the complications of infection, bleeding, pain, and skin injury were discussed. Particular attention was spent discussing thrombus extension and deep vein thrombosis as well as the possibility of pulmonary embolus and treatment with oral or injectable blood thinners. Procedure: The patient walked to the procedure room. All applicable staff donned appropriate apparel. A procedure timeout was performed to confirm correct patient, correct extremity, correct procedure, and correct room set-up including presence of all applicable supplies, devices, and drugs. A duplex ultrasound, performed by myself confirmed the location and incompetence of branch saphenous varicosities and their course was marked on the skin together with the dilated tributaries. The extent of treatment of the vein and the associated varicosities was determined through ultrasound mapping. The skin was prepped and then punctured with a butterfly needle and advanced under ultrasound guidance. The Varithenaregistered canister was activated and the canister was primed and purged as required in the instructions for use. Varithenaregistered was drawn into a sterile syringe. Varithenaregistered was slowly administered at 0.5-1.0 cc/second with close observation by ultrasound of its course in the vessels. Total volume utilized was: 15 mL (5 mL into a 5 mm varicosity distal medial lower left leg; 5 mL into a 5 mm varicosity mid medial lower left leg; 5 mL into a 4.5 mm varicosity distal anterior thigh). Following administration of Varithenaregistered the leg was elevated and the patient was asked to repeatedly dorsiflex the ankle to limit flow of Varithenaregistered into perforating veins. Once appropriate spasm had been confirmed in the treated veins, the vascular catheter was removed from the leg and light pressure was applied over the puncture site for hemostasis. The common femoral and deep superficial veins were then evaluated for flow and compressibility prior to dressing placement. The lower extremity was kept elevated at 45 degrees above the horizontal and cording material was applied over the saphenous segments and tributaries to allow for eccentric compression over the target vessels including the targeted saphenous vein(s). A multilayer dressing was applied consisting of foam pads, coban and thigh-high 20-30 mm Hg compression elastic support hose were placed on the patient. The leg was lowered only after compression had been applied and the patient was immediately ambulatory. The patient ambulated 10 minutes under supervision and was without apparent concerns at time of release. Post-care instructions include advising patient to keep post-treatment bandages in place and dry for 48 hours, avoid extended periods of inactivity, avoid heavy exercise for one week, wear compression stockings on the treated leg continuously for two weeks, to walk daily for 10 minutes over the next month. The patient was instructed to take an anti-inflammatory medicine as needed and to follow up for color duplex scan of the Saphenous veins, the treated branch saphenous varicosities, the adjacent deep veins, and additional treatment within 7 days. PERSONNEL: Destini Carlin RN Electronically authenticated by: MARY RATLIFF Date: 08/24/2024 15:10
[2024-08-24 13:18] VITALS: BP 140/68; PULSE 77; O2SAT 99
--- NOTE | 2024-08-24 14:32 | W.VEIN ---
Discharge Plan Discharge Disposition: Home, Self-Care Outpatient Diagnostics: [facility] EXT Venous HU Limited (Routine) Timeframe: 2 Weeks Facility: [facility] - Location: Vein Center Ordered By: Rahul Pedro [facility] Facility EST LMTD (Routine) Timeframe: 2 Weeks Facility: [facility] - Location: Vein Center Ordered By: Guillermo Gurrola Follow Up Appointments: 08/30/24 Plan of Treatment: u/s follow up following varithena left leg 08/24/24 Patient Instructions: Polidocanol (By injection) (Jorge Bautista) Print Language: Romansh Discharge Date/Time: 08/24/24 14:08
== END 2024-08-24 14:08 | disposition home or self-care (01) ==
LOC: VC 13:03
PROVIDERS: PCP Radiology Diagnostic Radiology; Visit Provider Radiology Diagnostic Radiology
DX: I83.813 Varicose veins of bilateral lower extremities with pain (principal)
CPT/HCPCS: 36466

== ENCOUNTER 2024-08-30 08:07 | Outpatient (OUT) | payer OTHER, SELFPAY ==
--- NOTE | 2024-08-30 08:09 | VEIN_ITS ---
Patient Name: RACHEL NGUYEN MR#: [id number] : 1955 Exam Date: 08/30/2024 Ordering Doctor: DR GUILLERMO GURROLA M.D. RADIOLOGY REPORT PROCEDURE: FACILITY EST LMTD VEIN CENTER - OFFICE VISIT FOLLOW UP COMPARISON: [facility] EST LMTD, 08/03/2024. FACILITY EST LMTD, 07/20/2024. PROGRESS NOTES: The patient reports no significant problems following micro foam chemical ablation left leg incompetent varicose veins. The patient has worn his compression stockings. The patient did not require oral analgesics. The patient has continued on his blood thinner for right leg deep vein thrombus. Physical exam demonstrates persistence subcutaneous swelling below the knee. There has been marked improvement near resolution bilateral leg erythema skin thickening and redness. Review of the ultrasound performed the same day demonstrates occlusive thrombus extending throughout the treated left leg varicose veins. No residual incompetent varicose veins identified on the right or left leg. There has been interval partial recanalization of now nonocclusive short segment of deep vein thrombus in a right gastrocnemius vein. The patient was asked to discontinue anticoagulation. The patient's treatments are now complete. One year follow-up was suggested. VEIN/[facility] EST LMTD IMPRESSION: 1. Successful ablation of the incompetent left leg varicose veins. 2. No residual varicose veins observed 3. Significant improvement in right gastrocnemius deep vein thrombus PLAN: Discontinue anticoagulation Follow-up in 1 year, earlier if necessary Nurse notes, history and physical were reviewed and confirmed, see attached forms. The nurse was present throughout the physical exam and consultation Dictated by: Guillermo Gurrola MD on 08/30/2024 at 09:11 Approved by: Guillermo Gurrola MD on 08/30/2024 at 09:32
--- NOTE | 2024-08-30 08:09 | VEIN_ITS ---
Patient Name: RACHEL NGUYEN MR#: [id number] : 1955 Exam Date: 08/30/2024 Ordering Doctor: DR MARY RATLFIF M.D. RADIOLOGY REPORT PROCEDURE: VC EXT VENOUS HU LIMITED COMPARISON: None. INDICATIONS: I80.01 - Phlebitis and thrombophlebitis of superficial veins TECHNIQUE: Lower extremity niño scale and Duplex Doppler evaluation of the deep venous system from the inguinal ligament through the calf veins. FINDINGS: REGION: Right lower extremity. THROMBI: Chronic appearing thrombus. Partial compression of small segment of gastroc vein. COMPRESSIBILITY: Partial compressibility of segments. FLOW: Normal waveform and antegrade flow between 5 and 20 cm/s. OTHER: Negative. REGION: Left lower extremity. THROMBI: Acute and chronic appearing thrombi. Chemically induced thrombus in multiple varicose veins in left leg. COMPRESSIBILITY: Non-compressible segments. FLOW: Areas on no flow. OTHER: No significant varicose veins remain. *Exam performed in accordance with [facility] practice guidelines- Peripheral venous ultrasound, November 01, 2009. CONCLUSION: Post ablation occlusion of treated varicose veins with no significant residual incompetent varicose veins noted in the right or left leg Small amount nonocclusive deep vein thrombus in a short segment of the right gastrocnemius vein Dictated by: Guillermo Gurrola MD on 08/30/2024 at 08:41 Approved by: Guillermo Gurrola MD on 08/30/2024 at 08:46
--- OUTSIDE RECORDS SUMMARY | 2024-08-30 08:19 | XMS_ITS | CCD ---
Author Organization [facility] CliniSyoh Care Team Providers Care Aviation Operations Specialist Name Role Phone Pocarrilloalska Danyell Unavailable Unavailable [...] Care Provider MD Luiz Morrison Attending Provider [phone] Terri Santos DO Primary Care Provider Sarah, Dr. Terri Pearce Primary Care Unava ilpascale Ac, Dr. Delores Fajardo Referring Jessie vailable Weston, Dr. Delores Fajardo Attending Jessie vailable Weston, Dr. Delores Fajardo Attending Jessie vailable Sarah, Dr. Terri Pearce Primary Care Unava ilpascale Ac, Dr. Delores Fajardo Referring Jessie vaMD Terri Garcia Primary Care Provider MD Burak Rangel Attending Provider [phone] Allsop DO, Terri Portia Primary Care Provider DELORES AC Attending Unavailable ALLSOP, TERRIKENISHA PEARCE Primary Care Unavailab le Allsop DO, Terri Pfeiffer Unavailable Unavailabl Liliana Iyer MD Primary Care Provider Liliana Waller Primary Care Physician [phone] Allsop DO, Terri Pearce Primary Care Provider Audra GARCIAJordyn Unavailable [phone] ALLSOP, TERRI PORTIA Primary Care Unavailab le DECKER, JOSSELIN Ferraro Referring Unavailable DECKER, JOSSELIN Ferraro Attending Unavailable Allsop, Terri Pfeiffer Referring Unavailable Allsop, Terri Pfeiffer Admitting Unavailable Allsop, Terri Pfeiffer Attending Unavailable MORRISON, Luiz Jackson Admitting Unavailable MORRISON, Luiz Jackson Attending Unavailable Allsop, Terri Pfeiffer Attending Unavailable Allsop, Terri Pfeiffer Admitting Unavailable MORRISON, Luiz Jackson Attending Unavailable Liliana Waller MD Unavailable Morrison, Luiz Attending Unavailable Morrison, Luiz Admitting Unavailable ChristinLiliana young Primary Care Unavailable MORRISON, Luiz Jackson Attending Unavailable MORRISON, Luiz Jackson Admitting Unavailable MORRISON, Luiz Jackson Admitting Unavailable MORRISON, Luiz Jackson Attending Unavailable ALLSOP, TERRI Pfeiffer Attending Unavailable DOLCE, ADAM Pfeiffer Attending Unavailable ALLSOP, TERRI Pfeiffer Attending Unavailable ALLSOP, TERRI Pfeiffer Attending Unavailable DOLCE, ADAM Pfeiffer Attending Unavailable DOLCE, ADAM Pfeiffer Attending Unavailable ADLERELYSSA Attending Unavailable CHRISTIN, LILIANA Noguera Attending Unavailable DOLCEADAM Attending Unavailable CHRISTINLILIANA YOUNG Attending Unavailable DOLCE, ADAM Pfeiffer Attending Unavailable Allergies Allergy Classification Reported Allergen(s) Allergy Type Date of Onset Reaction(s) Facility Macrolides (antibiotic) (1 source) Clarithromycin Drug Allergy Unknown [facility] (1 source) No Known Medication Allergies; Translations: [No Known Medication Allergies] Propensity to adverse reactions to drug (disorder) [facility] (9 sources) shellfish, unspecified Allergy to substance (finding) [facility] 600 DO Work Phone: (18 sources) Clarithromycin; Translations: [clarithromycin] Drug Allergy Unknown [facility] [place] (2 sources) Shellfish; Translations: [SHELLFISH CONTAINING PRODUCTS] Drug Allergy 3 Swelling [facility] (2 sources) Shellfish; Translations: [SHELLFISH DERIVED] Propensity to adverse reactions 4 Other [facility] (16 sources) Clarithromycin Allergy to substance 3 Unknown [facility] Work Phone: Medications Current Medications Medication Drug Class(es) Dates Sig (Normalized) Sig (Original) acetaminophen 325 mg / HYDROcodone bitartrate 7.5 mg oral tablet (2 sources) Opioid Agonist Start: 02-12-2022 take 1 tablet by mouth once Bradner 325 mg-7.5 mg oral tablet 1 tab(s), Oral, Once, 1 tab(s), Refill(s) 0, Take 1 hour prior to procedure. Don't drive or operate machinery while taking this medication., [facility], 178, cm, 12/22/21 8:18:00 [...] Dihydropyridine Calcium Channel Jonathan Start: 05-19-20 End: 08-13-19 take 1 tablet by mouth once daily amLODIPine (Norvasc) 10 MG tablet Indications: Primary hypertension (CMS/HCC) Take 1 tablet (10 mg) by mouth Daily 90 tablet 3 08/13/2024 08/13/2025 Active Start: 06-10-2021 End: 09-30-2023 take 5 mg by mouth once daily at bedtime Amlodipine Active 5 MG PO Daily at bedtime April 13, 2022 12:00am amLODIPine Besyl ate Active Comment on above: Take 5 mg by mouth o nce daily. apixaban 5 mg oral tablet (19 sources) Factor Xa Inhibitor Start: 04-06-20 take 1 tablet by mouth in the morning apixaban (Eliquis) 5 MG tablet Indications: Blood clot in vein Take 1 tablet (5 mg) by mouth in the morning and 1 tablet (5 mg) before bedtime. 60 tablet 5 04/06/2024 Active {1 (Ascorbic Acid 7540 MG / POLYETHYLENE GLYCOL 3350 45032 MG / Potassium Chloride 1200 MG / Sodium Ascorbate 33567 MG / Sodium Chloride 3200 MG Powder for Oral Solution) / 1 (POLYETHYLENE GLYCOL 3350 892676 MG / Potassium Chloride 1000 MG / [...] Ordered Start: 08-06-2011 take [address] tablets [address] [facility] twice daily Coreg 12.5 mg Tab 25 [...] 180 Refills: 3 Ordered: 11-May-2022 Bienvenido Lee ZAYDA Valerie Active Carvedilol 12.5 MG Oral Tablet [...] extended release oral tablet (1 source) Uncompetitive O-xqjjyk-X-aspartate Receptor Antagonist, Sigma-1 Agonist Start: End: take [...] tablet (20 sources) alpha-Adrenergic Jonathan Start: 012 End: take 1 tablet by mouth at bedtime doxazosin (Cardura) 4 MG tablet Indications: Benign prostatic hyperplasia without lower urinary tract symptoms Take 1 tablet (4 mg) by mouth at bedtime 90 tablet 3 08/13/2024 08/13/2025 Active Comment on above: Take 4 mg [...] day(s), # 42 cap(s), Refills(s) 0, Pharmacy: [facility] 1986, 178, cm, 11/26/21 12:38:00 [...] Daily, # 90 tab(s), Refills(s) 3, Pharmacy: [facility] 1986, 178, cm, 06/15/23 13:22:00 [...] day Quantity: 1 Refills: 0 Ordered: 10-Mar-2021 YvesChriss Start: 10-Mar-2021 End: 19-Mar-2021 Generic Substitution Allowed [...] Angiotensin 2 Receptor Jonathan Start: 0 End: 6 take 1 tablet by mouth once daily losartan (Cozaar) 100 MG tablet Indications: Primary hypertension (CMS/HCC) Take 1 tablet (100 mg) by mouth Daily 90 tablet 3 08/13/2024 08/13/2025 Active Comment on above: Take 100 mg [...] Ordered Start: 06-12-2019 take 1 tablet by [facility] once daily lovastatin (MEVACOR) 20 mg tablet TAKE 1 & 1 2 (ONE & ONE HALF) TABLETS BY MOUTH ONCE DAILY 9 06/12/2019 Active Start: 09-23-2017 take [address] [facility] once daily lovastatin 10 mg Tab 30 mg = 3 tab(s), Oral, Daily, Refills(s) 0 Start Date: 09/23/17 Status: Ordered take [address] [facility] every other day lovastatin (Mevacor) 20 mg [...] sources) Leukotriene Receptor Antagonist Start: 2 End: 6 take 1 tablet by mouth at bedtime montelukast (Singulair) 10 MG tablet Indications: Seasonal allergies Take 1 tablet (10 mg) by mouth at bedtime 90 tablet 3 08/13/2024 08/13/2025 Active Start: 12-10-2009 End: 01-09-2010 take 1 [...] Refills: 0 Ordered: 31-Aug-2021 DO Active omega 4-bqm-uac-fish oil 360 mg-108 mg- 180 mg-1,200 mg capsule (1 source) End: 09-30-2023 take 1 capsule by mouth once daily omega 5-gqq-pjn-fish oil 360 mg-108 mg- 180 mg-1,200 mg capsule Take 1 capsule by mouth once daily. 0 09/30/2023 Discontinued (Other) [place]-3 Fatty Acids (3 sources) Start: 04-13-2022 take 2000 mg by mouth once daily at bedtime [place]-3 Fatty Acids Active 2000 MG PO Daily at bedtime April 13, 2022 12:00am Washington-3 Fatty Acids (Washington 3 Fish Oil) Capsule (2 sources) Start: 04-13-2022 take 1 capsule by mouth once daily at bedtime Washington-3 Fatty Acids ([place] 3 Fish Oil) Capsule Active 2000 MG [...] 12:00am Start: 10-07-2011 take [address] [facility] once daily Klor-Con 10 mEq 70 mEq = 7 tab(s), Oral, Daily, # 210, Refills(s) 0, Prophylaxis Start Date: 10/07/11 Status: Ordered Start: 10-07-2011 take [address] [facility] once daily Klor-Con 10 mEq 70 mEq = 7 tab(s), Oral, Daily, # 210, Refills(s) 0, Prophylaxis Start Date: 10/07/11 Status: Ordered Start: 10-07-2011 take [address] [facility] once daily Klor-Con 10 mEq 70 mEq [...] (A LCAINE) rivaroxaban 20 mg oral tablet (6 sources) Factor Xa Inhibitor Start: 06-18-2024 End: [...] q4wk, # 2 mL, Refills(s) 4, Pharmacy: [facility], 177, cm, 08/28/20 9:27:00 [...] procedure, # 2 tab(s), Refills(s) 0, Pharmacy: [facility], 178, cm, 11/04/21 10:45:00 EDT, Height/Length Dosing, 137.1, kg, 11/04/21 10:45:00 EDT, Weight Dosing Start Date: 11/04/21 Status: Ordered Start: 07-07-2020 End: 07-20-2020 take 1 tablet by mouth every twelve hours ciprofloxacin 500 mg oral tablet ; 1 tab(s) orally every 12 hours Quantity: 28 Refills: 0 Ordered: 07-Jul-2020 Chrsis Marie Start: 07-Jul-2020 End: 20-Jul-2020 Status: Other [...] Flaxseed Oil Not -Taking Flaxseed Oil Act rnajana Multi-Vitamin Oral Tablet (8 sources) take 1 tablet by mouth once daily Multi-Vitamin Oral Tablet TAKE 1 TABLET DAILY. Quantity: 0 Refills: 0 Ordered: 31-Aug-2021 DO Active [place]-3 CAPS (8 sources) [place]-3 CAPS LADONNA E DIRECTED. Quantity: 0 Refills: [...] Vitamin D (2 sources) Vitamin D Not-Ta tarzan Vitamin D Active Vitamin D 1000 intl units Tab (20 sources) Start: 11-22-2019 take 3 tablets by mouth once daily Vitamin D 1000 intl units Tab 3,000 International_Unit = 3 tab(s), Oral, Daily, # 30 tab(s), Refills(s) 0, Prophylaxis Start Date: 11/22/19 Status: Ordered Start: 11-22-2019 take 3 tablets by mo [facility] once daily Vitamin D 1000 intl units [...] 02-21-2020 Chronic Genitourinary symptoms and ill-defined conditions (20 sources) Urge incontinence; Translations: [Urge incontinence of urine] Onset: 2 Chronic Glaucoma (2 sources) Ocular hypertension; Translations: [Ocular hypertension, bilateral] Onset: 8 04-12-2018 Chronic Hemorrhoids (12 sources) Thrombosed external hemorrhoids 04-25-2022 Episodic Hyperplasia of prostate (20 sources) Benign prostatic hypertrophy with outflow obstruction; Translations: [Benign prostatic hyperplasia with lower urinary tract symptoms] Onset: 2 Chronic Mood disorders (20 sources) Dysthymia; Translations: [Depressive disorder] Onset: 0 03-13-2019 Chronic Mycoses (20 sources) Onychomycosis; Translations: [Tinea pedis] Onset: 3 03-13-2019 Episodic Other aftercare (5 sources) Long-term current use of anticoagulant; Translations: [residential (current) use of anticoagulants] Onset: 4 05-10-2024 Episodic Other and ill-defined heart disease (20 sources) Heart disease 11-04-2021 Chronic Other connective tissue disease (18 sources) Pain of toe of right foot; Translations: [Pain in right toe(s)] Onset: 3 01-04-2023 Episodic Other connective tissue disease (18 sources) Pain of toe of left foot; Translations: [Pain in left toe(s)] Onset: 3 01-04-2023 Episodic Other diseases of kidney and ureters (4 sources) Urinary tract obstruction; Translations: [Other obstructive and reflux uropathy] Onset: 2 Episodic Other diseases of veins and lymphatics (1 source) Peripheral venous insufficiency; Translations: [Venous insufficiency (chronic) (peripheral)] 08-20-2024 Episodic Other endocrine disorders (20 sources) Male [...] Chronic Other nutritional; endocrine; and metabolic disorders (16 sources) Body mass index 30+ - obesity 04-01-2022 Chronic Other nutritional; endocrine; and metabolic disorders (2 sources) Body mass index (BMI) 40.0-44.9, adult; Translations: [Body mass index (BMI) 40.0-44.9, adult ([facility])] Onset: 4 Chronic Other nutritional; endocrine; and metabolic disorders (16 sources) Obesity caused by energy imbalance; Translations: [...] (20 sources) Patient encounter status 12-11-2021 Unclassified (6 sources) History of clinical finding in subject 06-15-2023 Unclassified (2 sources) Drug therapy finding 06-20-2024 Past or Other [...] Translations: [Other fatigue] Onset: 03-11-2023 12-08-2021 Episodic Nonmalignant breast conditions (9 sources) Drug-induced gynecomastia; Translations: [Hypertrophy of breast] Onset: 05-27-2023 05-27-2023 Episodic Other screening for suspected conditions (not mental disorders or infectious disease) (20 sources) Liver function tests abnormal; Translations: [Raised prostate specific antigen] Onset: 12-11-2021 Resolved: 05-10-2024 12-08-2021 Episodic Other skin disorders (16 sources) Skin tag; Translations: [Other hypertrophic disorders [...] Test Name Value Interpretation Reference Range Facility XR Hip 2-3 Views Lefton XR Hip 2-3 Views Left Exam Date/Time: 08/11/2024 11:06 EST Reason for Exam: Other (please specify) Report IMPRESSION: No acute osseous findings. EXAMINATION/TECHNIQUE: XR Hip 2-3 Views Left HISTORY: Left hip pain. History of prostate cancer. COMPARISON: CT 11/19/2021. RESULT: No evidence for acute fracture involving the left hip or visualized bony pelvis. No distinct destructive osseous lesions. CAM morphology left hip with mild degenerative changes. Pubic symphysis intact. Few pelvic phleboliths. Soft tissues unremarkable. No other significant abnormality. Ordering Provider: Luiz MORRISON FINAL REPORT Dictated: 08/11/2024 1:18 pm Abraham Javed MD. Signed (Electronic Signature): 08/11/2024 1:18 pm Signed by: Abraham Javed MD Transcribed by: REGLA Technologist: DAVID Technical Comments Radiation Dose: Ka,r in mGy = . DAP = . Normal [facility] MR prostate wo/w conon 07-25 MR prostate wo/w con [facility] Main [address] [address] MRI Report Signed Patient: Phu Lopez MR#: [id number] : 1955 Acct:[id number] Age/Sex: 69 / M ADM Date: 07/24/24 Loc: MR Room: Type: [facility] Attending Dr: Luiz Morrison MD Copies to: [...] bone. Impression dictated by: Joaquin Araiza Jr., D.O.07/25/2024 9:30 AM Dictation Location: [place] [address] Transcribed By: [facility] 07/25/24929 Dictated By: Joaquin Araiza Jr DO 07/25/24913 Signed By: 07/25/24929 Normal [facility] ISTAT XRay CREon 07-24-2024 Creatinine [Mass/Vol] 0.7 mg/dL Normal 0.6-1.3 [facility] Comment on above: Result Comment: ER/E SD physician is notified/shown all ISTAT results. Critical values may be confirmed by laboratory testing if deemed necessary by ER attending doctor. Performed By: #### I SCRE #### [address] ISTAT GFR >60.0 Normal [facility] Comment on above: Result Comment: PERF ORMED BY: [place] [address] PATHOLOGIST SHOE TRIMMER MAY AYERS M.D. Performed By: #### I SCRE #### [address] Ambulatory Visit Summaryon 1 08-20-2023 Ambulatory Visit Summary Ambulatory Visit Summary WENDY PHU Noguera :1955 Visit Date:06/20/2024 Ambulatory Visit Instructions Your [...] [facility] [address] , [place] [address]- Medications What How Much When Why Instructions [...] Intramuscular Every (more content not included)... Normal [facility] Ambulatory Visit Summary Ambulatory Visit Summary ALYSE LOPEZCLIFF Noguera :1955 Visit Date:06/20/2024 Ambulatory Visit Instructions Your Diagnosis BPH with urinary obstruction History of elevated PSA Hypogonadism male Anticoagulated Tests Performed MRI Pelvis (Soft Tissue) w/ + w/o contrast -- Results Pending -- Please visit your patient portal for your results or contact your primary care physician. Your Care Team Attending Physician - Luiz MORRISON MD Primary Care Physician - Christin SAEZ, Liliana [...] URL When: Where: [facility] [address] , [place] [address]- Medications What How Much When Why Instructions [...] Intramuscular Every (more content not included)... Normal [facility] Urology Office/Clinic Noteon 06-20-2024 Urology Office/Clinic Note Urology Office/Clinic Note Chief Complaint 1 year follow up HPI Staff 1 year follow up w/PSA & JEANNA Previous PSA 04/30/23 - 0.50, Current PSA 0.6 05/25/24-[facility] Previous DX: BPH [...] management with Dr. Velasquez. 4. Anticoagulated (Z79.01: residential (current) use of anticoagulants) Eliquis. Elevated risk of periop complications. Follow-up With When Contact Information Luiz MORRISON MD, URL [facility] [address], [place] [address]- Additional Instructions: f/u pending MRI prostate Patient [...] urinary obs (more content not included)... Normal [facility] Comment on above: Result Comment: Elec tronically Signed By: Luiz MORRISON MD\.br\Date and Time Signed: 06/20/24 13:41 EST\.br\Electronically Co-Signed By: Angelica Colmenares\.br\Date and Time Co-Signed: 06/20/24 13:39 EST FUNDUS PHOTOS OU (BOTH EYES) on 06-01-2024 [facility] Radiology Study observation (narrative) [facility] OCT MACULA CIRRUS OU (BOTH E YES)on 06-01-2024 [facility] Radiology Study observation (narrative) [facility] CHEMISTRYOrdered By: SYSTEM SYSTEM on [...] used for this result was chemiluminescence using [employer]'s Access Hybritech PSA reagent. PSA Totalon 05-25-2024 Prostate specific Ag [Mass/Vol] 0.6 ng/mL Normal 0.1-3.5 [facility] Comment on above: Result Comment: The concentration of PSA determined by different manufacturers can vary due to differences in assay methods and reagent specificity. Values obtained from different assay methods cannot be used interchangeably. The methodology used for this result was chemiluminescence using Chepe [employer]'s Access Hybritech PSA reagent. Performed By: #### 1 [id number] #### [facility] [address] [place] [address] US LE Venous Duplex Righton 11-29-2023 US [...] M.D. Transcribed by: REGLA Technologist: HW Normal [facility] Consent for Treatmenton 11-06 Consent for Treatment [id number] Normal [facility] Physician Orderon 11-18-2023 Physician Order [id number] Normal [facility] CBC w/ Auto Diffon 4 Basophils/100 WBC (Bld) 0.8 % Normal 0.0-2.0 [facility] Comment on above: Performed By: #### 2 [id number], [id number], 9520927, [id number] #### [facility] [address] [place] [address] Basophils/Leukocytes Auto (Bld) [Pure # fraction] 0.1 E9/L Normal 0.0-0.2 [facility] Comment on above: Performed By: #### 2 978638, [id number], 9275242, 9868011 #### [facility] [address] [place] [address] Eosinophils (Bld) [#/Vol] 0.3 E9/L Normal 0.0-0.5 [facility] Comment on above: Performed By: #### 2 578455, 31394638, 0242899, 8180226 #### [facility] [address] [place] [address] Eosinophils/100 WBC (Bld) 3.4 % Normal 0.0-8.0 [facility] Comment on above: Performed By: #### 2 215622, 18350677, 4278249, 4994386 #### [facility] [address] [place] [address] Erythrocyte distribution width (RBC) [Ratio] 13.6 % Normal 10.9-14.2 [facility] Comment on above: Performed By: #### 2 696887, 19098450, 4266841, 4060586 #### [facility] [address] [place] [address] Hematocrit (Bld) [Volume fraction] 39.9 % Normal 37.7-49.0 [facility] Comment on above: Performed By: #### 2 457272, 15620355, 3324275, 6816436 #### [facility] [address] [place] [address] Hemoglobin (Bld) [Mass/Vol] 13.7 g/dL Normal 13.5-17.5 [facility] Comment on above: Performed By: #### 2 899109, 21221099, 8554639, 3142122 #### [facility] [address] [place] [address] Lymphocytes (Bld) [#/Vol] 1.5 E9/L Normal 1.0-4.0 [facility] Comment on above: Performed By: #### 2 359087, 33530314, 2307615, 0857367 #### [facility] [address] [place], [place] [address] Lymphocytes/100 WBC (Bld) 20.2 % Normal 14.0-50.0 [facility] Comment on above: Performed By: #### 2 341248, 69008720, 6355627, 3477849 #### [facility] [address] [place] [address] MCH (RBC) [Entitic mass] 30.4 pg Normal 27.0-34.0 [facility] Comment on above: Performed By: #### 2 217644, 50612040, 7286005, 8773415 #### [facility] [address] [place] [address] MCHC (RBC) [Mass/Vol] 34.3 g/dL Normal 31.4-36.0 [facility] Comment on above: Performed By: #### 2 346127, 45498197, 5690977, 0432920 #### [facility] [address] [place] [address] MCV (RBC) [Entitic vol] 88.6 fL Normal 80.0-100.0 [facility] Comment on above: Performed By: #### 2 042539, 57932929, 5806730, 9507631 #### [facility] [address] [place], [place] [address] Monocytes (Bld) [#/Vol] 0.7 E9/L Normal 0.2-1.0 [facility] Comment on above: Performed By: #### 2 440492, 04682200, 0893686, 6137967 #### [facility] [address] [place] [address] Neutrophils (Bld) [#/Vol] 5.0 E9/L Normal 2.0-7.5 [facility] Comment on above: Performed By: #### 2 725975, 83878243, 7475421, 3934834 #### [facility] [address] [place] [address] Neutrophils/100 WBC (Bld) 66.1 % Normal 36.0-75.0 [facility] Comment on above: Performed By: #### 2 609760, 51585618, 7312650, 5735781 #### [facility] [address] [place] [address] Platelet mean volume (Bld) [Entitic vol] 9.1 fL Normal 6.4-10.8 [facility] Comment on above: Performed By: #### 2 256674, 96471116, 5844005, 7116301 #### [facility] [address] [place] [address] Platelets (Bld) [#/Vol] 216.0 E9/L Normal 150.0-500.0 [facility] Comment on above: Performed By: #### 2 627342, 43544364, 7090446, 9628777 #### [facility] [address] [place] [address] RBC (Bld) [#/Vol] 4.5 E12/L Normal 4.3-5.9 [facility] Comment on above: Performed By: #### 2 270460, 69725130, 2292565, 0991038 #### [facility] [address] [place] [address] WBC corrected for nucl RBC Auto (Bld) [#/Vol] 7.5 E9/L Normal 4.0-11.0 [facility] Comment on above: Performed By: #### 2 746911, 86595329, 1938035, 1058234 #### [facility] [address] [place] [address] CHEMISTRYOrdered By: SYSTEM SYSTEM on 10-21-2023 Albumin [...] 10-21-2023 Albumin [Mass/Vol] 4.3 g/dL Normal 3.3-5.0 [facility] Comment on above: Performed By: #### 2 693934, 67658623, 9907484, 0168103 #### [facility] [address] [place] [address] Albumin/Globulin (S) [Mass conc ratio] 1.7 Normal 1.1-2.2 [facility] Comment on above: Performed By: #### 2 867930, 40629360, 1749428, 3625438 #### [facility] [address] [place] [address] ALP [Catalytic activity/Vol] 66 Int._Unit/L Normal 21-98 [facility] Comment on above: Performed By: #### 2 068361, 37560372, 0357263, 0966350 #### [facility] [address] [place] [address] ALT No additional P-5'-P [Catalytic activity/Vol] 17 Int._Unit/L Normal 6-46 [facility] Comment on above: Performed By: #### 2 196583, 58139097, 1091929, 5409783 #### [facility] [address] [place] [address] Anion gap [Moles/Vol] 13 mmol/L Normal 6-16 [facility] Comment on above: Performed By: #### 2 566141, 02743686, 9274793, 1577488 #### [facility] [address] [place] [address] AST [Catalytic activity/Vol] 17 Int._Unit/L Normal 5-43 [facility] Comment on above: Performed By: #### 2 286079, [id number], [id number], [id number] #### [facility] [address] [place] [address] Bilirubin [Mass/Vol] 0.9 mg/dL Normal 0.0-1.1 [facility] Comment on above: Performed By: #### 2 [id number], [id number], [id number], [id number] #### [facility] [address] [place] [address] Calcium [Mass/Vol] 8.7 mg/dL Low 8.9-11.1 [facility] Comment on above: Performed By: #### 2 243750, [id number], 7914015, [id number] #### [facility] [address] [place] [address] Chloride [Moles/Vol] 104 mmol/L Normal 101-111 [facility] Comment on above: Performed By: #### 2 554093, [id number], 7408174, [id number] #### [facility] [address] [place] [address] CO2 [Moles/Vol] 27 mmol/L Normal 21-31 [facility] Comment on above: Performed By: #### 2 986072, [id number], 3872489, 7910046 #### [facility] [address] [place] [address] Creatinine [Mass/Vol] 0.6 mg/dL Normal 0.5-1.3 [facility] Comment on above: Performed By: #### 2 079444, [id number], 5567432, 5374950 #### [facility] [address] [place] [address] Globulin (S) [Mass/Vol] 2.6 g/dL Normal 1.4-4.0 [facility] Comment on above: Performed By: #### 2 918750, [id number], 9439396, 9370021 #### [facility] [address] [place] [address] Glucose [Mass/Vol] 94 mg/dL Normal 55-199 [facility] Comment on above: Performed By: #### 2 110529, [id number], 2437234, 1553646 #### [facility] [address] [place] [address] Potassium [Moles/Vol] 3.4 mmol/L Low 3.5-5.3 [facility] Comment on above: Performed By: #### 2 305929, [id number], 9388631, 9706916 #### [facility] [address] [place] [address] Protein [Mass/Vol] 6.9 g/dL Normal 6.0-7.8 [facility] Comment on above: Performed By: #### 2 104191, [id number], 8933194, 3434018 #### [facility] [address] [place] [address] Sodium [Moles/Vol] 141 mmol/L Normal 135-145 [facility] Comment on above: Performed By: #### 2 412925, 12524392, 0553799, 6166519 #### [facility] [address] [place] [address] Urea nitrogen [Mass/Vol] 9 mg/dL Normal 5-21 [facility] Comment on above: Performed By: #### 2 925476, 93360225, 3436503, 7920562 #### [facility] [address] [place] [address] Urea nitrogen/Creatinine [Mass ratio] 15 No Units Normal 10-20 [facility] Comment on above: Performed By: #### 2 868542, [id number], 7251599, 8921701 #### [facility] [address] [place] [address] Consent for Treatmenton 10-06 Consent for Treatment [id number] 0TIFF Normal [facility] HEMATOLOGYOrdered By: SYSTEM SYSTEM on 10-21-2023 [...] Cholesterol [Mass/Vol] 172 mg/dL Normal 120-200 [facility] Comment on above: Performed By: #### 2 657862, 65037394, 2804710, 2570391 #### [facility] [address] [place] [address] Cholesterol in HDL [Mass/Vol] 32 mg/dL Invalid Interpretation Code [facility] Comment on above: Result Comment: '>= 60 LOW RISK' '<= 40 HIGH RISK' Performed By: #### 2 078717, 32232424, 0278977, 6318047 #### [facility] [address] [place] [address] Cholesterol in LDL [Mass/Vol] 107 mg/dL Normal <=129 [facility] Comment on above: Performed By: #### 2 839241, [id number], 0245635, 4829928 #### [facility] [address] [place] [address] Cholesterol in VLDL [Mass/Vol] 38 mg/dL Normal 7-40 [facility] Comment on above: Performed By: #### 2 515750, 70014916, 0948003, 8627235 #### [facility] [address] [place] [address] Triglyceride [Mass/Vol] 192 mg/dL High <=149 [facility] Comment on above: Performed By: #### 2 924433, 26428604, 3763372, 9147178 #### [facility] [address] [place] [address] Physician Orderon 10-21-2023 Physician Order [id number]. 00TIFF Normal [facility] eGFRon 10-21-2023 eGFR 105 mL/min/1.73 m2 Normal >=59 [facility] Comment on above: Order Comment: Order added by Discern Expert. Performed By: #### 2 746743, [id number], 9707771, 7409282 #### [facility] [address] [place] [address] CHEMISTRYOrdered By: SYSTEM SYSTEM on 09-29-2022 Anion gap [Moles/Vol] 11 mmol/L Normal 6 - 16 mEq/L [facility] Remisol Calcium [Mass/Vol] 8.9 mg/dL Normal 8.9 - 11. 1 mg/dL FT Remisol Chloride [Moles/Vol] 101 mmol/L Normal 101 - 1 11 mmol/L [facility] Remisol Creatinine [Mass/Vol] 0.7 mg/dL Normal 0.5 - 1.3 mg/dL [facility] Remisol GFR/1.73 sq M.predicted among blacks MDRD (S/P/Bld) [Vol rate/Area] mL/min/1.73 m2 Normal >=59mL/min/ 1.73 m2 [facility] Chem S GFR/1.73 sq M.predicted among non-blacks MDRD (S/P/Bld) [Vol rate/Area] mL/min/1.73 m2 Normal >=59mL/min/ 1.73 m2 [facility] Chem S Glucose [Mass/Vol] 107 mg/dL Normal 55 - 199 mg/dL [facility] Remisol Potassium [Moles/Vol] 3.8 mmol/L Normal 3.5 - 5.3 mmol/L [facility] Remisol Sodium [Moles/Vol] 136 mmol/L Normal 135 - 145 mmol/L [facility] Remisol Urea nitrogen [Mass/Vol] 17 mg/dL Normal 5 - 21 mg/dL [facility] Remisol Urea nitrogen/Creatinine [Mass ratio] 24 mg/mg High 10 - 20 [facility] Remisol Laboratory - Chemistry and C hemistry - challengeOrdered By: SYSTEM SYSTEM on 09-29-2022 CO2 [Moles/Vol] 28 mmol/L Normal 21 - 31 mmol/L [facility] Remisol Laboratory - Hematology and Cell countsOrdered By: Leonid Leiva on 09-29-2022 HbA1c (Bld) [Mass fraction] 5.8 % Normal <=5.9% [facility] ChemAutoSS No Panel Informationon 09-29 11 {mEq/L} Normal 6-16 [facility] Work Phone: [phone] 101 mmol/L Normal 101-111 [facility] Work Phone: [phone] 3.8 mmol/L Normal 3.5-5.3 [facility] Work Phone: [phone] 136 mmol/L Normal 135-145 [facility] Work Phone: [phone] 8.9 mg/dL Normal 8.9-11.1 [facility] Work Phone: [phone] 24 {No_Units} above high threshold 10-20 [facility] Work Phone: [phone] 0.7 mg/dL Normal 0.5-1.3 [facility] Work Phone: [phone] 17 mg/dL Normal 5-21 [facility] Work Phone: [phone] 107 mg/dL Normal 55-199 [facility] Work Phone: [phone] Comment on above: If this glucose resu lt represents a fasting glucose, interpretation should refer to the following reference range: 55-99 mg/dL >60 Normal >=59 [facility] Work Phone: Comment on above: eGFR is race adjuste d. AA=. Chronic kidney disea se could be indicated at eGFR's of less than 60 mL/min/1.73m2. Kidney failure is indicated at less than 15 mL/min/1.73m2. Falls Screening (Age 18+)on 09-28-2022 Fall risk assessment a) No falls within the last year [facility] Work Phone: Office Visit (Cardiology)on 09-28-2022 Follow-up visit Diagnoses/Problems Assessed Essential hypertension (401.9) (I10) Morbid obesity with BMI of 40.0-44.9, adult (278.01,V85.41) (E66.01,Z68.41) Orders Essential hypertension, Hyperlipidemia, Morbid obesity with BMI of 40.0-44.9, adult, Screening for diabetes mellitus Hemoglobin A1C; Status:Active - Retrospective Authorization; Requested for:[id number]; Essential hypertension, Non-ischemic cardiomyopathy Basic Metabolic Panel; Status:Active - Retrospective Authorization; Requested for:[id number]; Hyperlipidemia, Screening for diabetes mellitus Glucose, Fasting; Status:Active - Retrospective Authorization; Requested for:[id number]; Chief Complaint PHU LOPEZ is being seen [...] DAILY. Multi-Vitamin Oral TabletTAKE 1 TABLET DAILY. [place]-3 [place] DIRECTED. 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 He reports no symptoms of dyspnea or [...] been very compliant Delores Ac MD, [facility] Surgical History Problems History of Complete colonoscopy [...] DAILY. Multi-Vitamin Oral TabletTAKE 1 TABLET DAILY. [place]-3 [place] DIRECTED. PARoxetine HCl - 20 MG [...] Recorded: 10Sep2022 10:02AM Heart Rate88, L Radial Yvakbeto082, RUE, Sitting Gitrerjin10, RUE, Sitting Height5 ft 10 in Xorjvh962 lb BMI Lpoprjirmj00.32 kg/m2 BSA Calculated2.44 Tobacco Useb) No PHQ-2 #1. Over the last 2 weeks have you felt down, depressed or hopeless? (If yes, answer PHQ-9 below)No PHQ-2 #2. Over the last 2 weeks have you felt little i (more content not included)... Normal [facility] Tobacco Screening.on 023 Adult depression screening assessment No [facility] [employer] 600 DO Work Phone: Fall risk assessment a) No falls within the last year [facility] [employer] 600 DO Work Phone: Tobacco use status CPHS b) No M [facility] [employer] 600 DO Work Phone: COVID-19 Positive/NegativeOr dered By: Luiz Morrison on 04-23-2022 SARS-CoV-2 (COVID-19) N gene MARY+probe Ql (Resp) Negative Negative [facility] Comment on above: Testing for SARS-CoV -2 by RT-PCR This test was developed and its performance characteristics determined by [employer] ([employer] and validated at the [facility]. This test has not been FDA [...] aPTT Coag (PPP) [Time] 29.4 s 25.1-36.5 Fi [facility] Basophils Auto (Bld) [#/Vol] Ordered By: Luiz Morrison on 04-13-2022 Basophils (Bld) [#/Vol] 0.0 10*3/uL 0.0-0.2 [facility] Basophils/100 WBC Auto (Bld) Ordered By: Luiz Morrison on 04-13-2022 Basophils/100 WBC (Bld) 0.5 % . F [facility] Blood hemoglobin measurement (mass/volume)Ordered By: Luiz Morrison on 04-13-2022 Hemoglobin (Bld) [Mass/Vol] 14.4 g/dL 13.0-17.0 [facility] Blood leukocytes automated c ount (number/volume)Ordered By: Luiz Morrison on 04-13-2022 WBC (Bld) [#/Vol] 7.0 10*3/uL 4.5-11.0 [facility] Creatinine and Glomerular fi ltration rate.predicted panel (S/P/Bld)Ordered By: Luiz Morrison on 04-13-2022 Creatinine [Mass/Vol] 0.60 mg/dL 0.64-1.27 [facility] Eosinophils Auto (Bld) [#/Vo l]Ordered By: Luiz Morrison on 04-13-2022 Eosinophils (Bld) [#/Vol] 0.2 10*3/uL 0.0-0.45 [facility] Eosinophils/100 WBC Auto (Bl d)Ordered By: Luiz Morrison on 04-13-2022 Eosinophils/100 WBC (Bld) 2.4 % . [facility] Erythrocyte distribution wid th Auto (RBC) [Ratio]Ordered By: Luiz Morrison on 04-13-2022 Erythrocyte distribution width (RBC) [Ratio] 13.3 % 12.0-14.8 [facility] Estimated glomerular filtrat ion rate (GFR) non- AmericanOrdered By: Luiz Morrison on 04-13-2022 GFR/1.73 sq M.predicted among non-blacks MDRD (S/P/Bld) [Vol rate/Area] > 60 mL/Min [facility] Hematocrit Auto (Bld) [Volum e fraction]Ordered By: Luiz Morrison on 04-13-2022 Hematocrit (Bld) [Volume fraction] 42.6 % 38.8-50.0 [facility] Laboratory - CoagulationOrde red By: Luiz Morrison on 04-13-2022 PT Coag (PPP) [Time] 10.8 s 9.0-12.9 [facility] - Hematology and Cell countsOrdered By: Luiz Morrison on 04-13-2022 Nucleated RBC/100 WBC (Bld) [Ratio] 0.0 % 0-0.5 [facility] Lymphocytes Auto (Bld) [#/Vo l]Ordered By: Luiz Morrison on 04-13-2022 Lymphocytes (Bld) [#/Vol] 1.2 10*3/uL 1.00-4.8 [facility] Lymphocytes/100 WBC Auto (Bl d)Ordered By: Luiz Morrison on 04-13-2022 Lymphocytes/100 WBC (Bld) 17.7 % . [facility] MCH Auto (RBC) [Entitic mass ]Ordered By: Luiz Morrison on 04-13-2022 MCH (RBC) [Entitic mass] 30.6 pg 27.5-35.2 [facility] MCHC Auto (RBC) [Mass/Vol]Or dered By: Luiz Morrison on 04-13-2022 MCHC (RBC) [Mass/Vol] 33.8 g/dL 32.5-35.6 [facility] MCV Auto (RBC) [Entitic vol] Ordered By: Luiz Morrison on 04-13-2022 MCV (RBC) [Entitic vol] 90.7 fL 83.5-101 F [facility] Monocytes Auto (Bld) [#/Vol] Ordered By: Luiz Morrison on 04-13-2022 Monocytes (Bld) [#/Vol] 0.7 10*3/uL 0.0-0.8 [facility] Monocytes/100 WBC Auto (Bld) Ordered By: Luiz Morrison on 04-13-2022 Monocytes/100 WBC (Bld) 9.7 % . F [facility] Neutrophils Auto (Bld) [#/Vo l]Ordered By: Luiz Morrison on 04-13-2022 Neutrophils (Bld) [#/Vol] 4.9 10*3/uL 1.8-7.7 [facility] Neutrophils/100 WBC Auto (Bl d)Ordered By: Luiz Morrison on 04-13-2022 Neutrophils/100 WBC (Bld) 69.7 % . [facility] No Panel InformationOrdered By: Luiz Morrison on 04-13-2022 Estimated GFR () > 60 mL/Min [facility] Comment on above: GFR estimated refere nce range: According to KDOQI guidelines, <60 ml/min/1.73m2 is sufficient to diagnose a patient with chronic kidney disease. Pharmacy Creatinine Clearance (Chem N/A [facility] Platelet mean volume Auto (B ld) [Entitic vol]Ordered By: Luiz Morrison on 04-13-2022 Platelet mean volume (Bld) [Entitic vol] 9.2 fL 6.6-10.1 [facility] Platelet poor plasma interna tional normalized ratio (INR) by coagulation assay (relatOrdered By: Luiz Morrison on 04-13-2022 INR Coag (PPP) [Relative time] 1.0 {INR} [facility] Comment on above: INR Therapeutic Rang [...] 04-13-2022 Platelets (Bld) [#/Vol] 265 10*3/uL 150-450 [facility] RBC Auto (Bld) [#/Vol]Ordere d By: Luiz Morrison on 04-13-2022 RBC (Bld) [#/Vol] 4.70 10*6/uL 3.90-5.60 [facility] Serum or plasma anion gap de terminationOrdered By: Luiz Morrison on 04-13-2022 Anion gap [Moles/Vol] 13.0 mmol/L 6.0-15.0 [facility] Serum or plasma calcium anne urement (mass/volume)Ordered By: Luiz Morrison on 04-13-2022 Calcium [Mass/Vol] 9.4 mg/dL 8.2-10.2 [facility] Serum or plasma chloride neo surement (moles/volume)Ordered By: Luiz Morrison on 04-13-2022 Chloride [Moles/Vol] 100 mmol/L 95-114 [facility] Serum or plasma glucose anne urement (mass/volume)Ordered By: Luiz Morrison on 04-13-2022 Glucose [Mass/Vol] 112 mg/dL 70-100 [facility] Comment on above: ADA recommended refe rence range Random Glucose Reference Range is dependent on time and content of last meal. Glucose of more than 200 mg/dL in a nonstressed, ambulatory subject supports the diagnosis of Diabetes Mellitus. Serum or plasma potassium me asurement (moles/volume)Ordered By: Luiz Morrison on 04-13-2022 Potassium [Moles/Vol] 3.6 mmol/L 3.5-5.1 [facility] Serum or plasma sodium measu rement (moles/volume)Ordered By: Luiz Morrison on 04-13-2022 Sodium [Moles/Vol] 136 mmol/L 136-146 [facility] Serum or plasma total carbon dioxide measurement (moles/volume)Ordered By: Luiz Morrison on 04-13-2022 CO2 [Moles/Vol] 26.6 mmol/L 22.0-30.0 [facility] Serum or plasma urea nitroge n measurement (mass/volume)Ordered By: Luiz Morrison on 04-13-2022 Urea nitrogen [Mass/Vol] 7 mg/dL 04-30 [facility] CHEMISTRYOrdered By: Gabriel rendon on 04-01-2022 HbA1c (Bld) [Mass fraction] 5.3 % Normal <=5.9% [facility] ChemAutoSS Creatinine (Bld) [Mass/Vol]O rdered By: Luiz Morrison on 01-21-2022 Creatinine [Mass/Vol] 0.8 mg/dL 0.6-1.3 [facility] Comment on above: ER/ESD physician is notified/shown all ISTAT results. Critical values may be confirmed by laboratory testing if deemed necessary by ER attending doctor. No Panel InformationOrdered By: Luiz Morrison on 01-21-2022 POC Estimated GFR > 60 [facility] Comment on above: GFR estimated refere nce range: According to KDOQI guidelines, <60 ml/min/1.73m2 is sufficient to diagnose a patient with chronic kidney disease. POC Estimated GFR Non- Amer > 60 [facility] CHEMISTRYOrdered By: [employer] SYSTEM on 12-22-2021 Free PSA [Mass/Vol] 0.7 ng/mL Invalid Interpretation Code [facility] Remisol Free PSA/Total PSA [Mass fraction] 11.0 % Low >=25.0% [facility] Remisol Prostate specific Ag [Mass/Vol] 5.9 ng/mL High 0.1 - 3.5 ng/mL [facility] Remisol CHEMISTRYOrdered By: [employer] SYSTEM on 12-10-2021 Albumin [Mass/Vol] 3.3 g/dL [...] rate/Area] mL/min/1.73 m2 Normal >=59mL/min/ 1.73 m2 [facility] Chem S GFR/1.73 sq M.predicted among non-blacks MDRD (S/P/Bld) [Vol rate/Area] mL/min/1.73 m2 Normal >=59mL/min/ 1.73 m2 [facility] Chem S Globulin [...] ratio] 17 mg/mg Normal 10 - 20 [facility] Remisol HEMATOLOGYOrdered By: Stephanie jamison on 12-10-2021 Erythrocyte distribution width (RBC) [Ratio] 13.4 % Normal 10.9 - 14.2 % [facility] HemeAutoSS Hematocrit (Bld) [...] 8.4 E9/L Normal 4.0 - 11.0 E9/L [facility] HemeAutoSS CHEMISTRYOrdered By: SYSTEM SYSTEM on 11-19-2021 Creatinine [Mass/Vol] 0.7 mg/dL Normal 0.5 - 1.3 mg/dL [facility] Remisol GFR/1.73 sq M.predicted among blacks MDRD (S/P/Bld) [Vol rate/Area] mL/min/1.73 m2 Normal >=59mL/min/ 1.73 m2 [facility] Chem S GFR/1.73 sq M.predicted among non-blacks MDRD (S/P/Bld) [Vol rate/Area] mL/min/1.73 m2 Normal >=59mL/min/ 1.73 m2 [facility] Chem S Tobacco Screening.on 022 Fall risk assessment a) No falls within the last year -[facility] [employer] 600 DO Work Phone: Tobacco use status CPHS b) No M P-[facility] [employer] 600 DO Work Phone: CORONAVIRUS 2019 BY PCRon SARS-CoV-2 (COVID-19) RNA MARY+probe Ql (Unsp spec) Not detected Normal Not Detected [facility] Comment on above: Result Comment: . [...] this test method. Fact sheet for providers: https://www.fda.gov/media/126182/download Fact sheet for patients: https://www.fda.gov/media/957424/download This test has received FDA Emergency Use Authorization [EUA] and has been verified by [facility] ([facility]). This test is only authorized for the duration of time that circumstances exist to justify the authorization of the emergency use of in vitro diagnostic tests for the detection of SARS-CoV-2 virus and/or diagnosis of COVID-19 infection under section 564(b)(1) of the Act, 21 U.S.C. 360bbb-3(b)(1), unless the authorization is terminated or revoked sooner. [facility] is certified under CLIA-88 as qualified to perform high complexity testing. Testing is performed in the [facility] laboratories located at [address] [place] [address]. Performed By: #### C OV19 #### [address] [place] [address] Covid 19 Resultson SARS-CoV-2 (COVID-19) RNA MARY+probe [...] You may also be contacted by the [facility] of [facility] to see if any of your close [...] or Naproxen (Aleve) can also be used. Wggr-elt-yheeonw cough and cold medicines can be used according to the instructions on the package. Some rcsn-mzk-dcepqgp medicines also contain acetaminophen. Make sure you [...] water are not available, use alcohol-based hand electron microscopist. Avoid touching your eyes, nose, and mouth [...] for 24 matias (more content not included)... [facility] CORONAVIRUS 2019 BY PCRon DATE OF SYMPTOM ONSET [YYYYMMDD]? [id number] [facility] Comment on above: Performed By: #### C OV19 #### [facility] [address] [place] [address] Lab Specimen Source Nasal, Nasopharyngeal [facility] Comment on above: Performed By: #### C OV19 #### [facility] [address] [place] [address] Provider Note - ED v2on Provider Note [...] SIGNS: T PRBP SpO2O2(LPM) %FiO2 Method 10-Mar-2021 13:09:[id number] 95 PHYSICAL EXAM CONSTITUTIONAL: Appearance: well appearing [...] with instruction (more content not included)... Normal [facility] CORONAVIRUS 2019 BY PCRon SARS-CoV-2 (COVID-19) RNA MARY+probe Ql (Unsp spec) Not detected Normal Not Detected [facility] Comment on above: Result Comment: . [...] patient management decisions. Fact sheet for providers: https://www.fda.gov/media/458261/download Fact sheet for patients: https://www.fda.gov/media/004364/download This test has received FDA Emergency Use Authorization (EUA) and has been verified by [facility] ([facility]). This test is only authorized for the duration of time that circumstances exist to justify the authorization of the emergency use of in vitro diagnostic tests for the detection of SARS-CoV-2 virus and/or diagnosis of COVID-19 infection under section 564(b)(1) of the Act, 21 U.S.C. 360bbb-3(b)(1), unless the authorization is terminated or revoked sooner. [facility] is certified under CLIA-88 as qualified to perform high complexity testing. Testing is performed in the [facility] laboratories located at [id number] [place] [address]. Performed By: #### C OV19 #### [address] [place] [address] Covid 19 Resultson 1 SARS-CoV-2 (COVID-19) RNA [...] You may also be contacted by the [facility] of Health to see if any of [...] or Naproxen (Aleve) can also be used. Fneo-dif-ihzqgty cough and cold medicines can be used according to the instructions on the package. Some xaur-ngw-eehnqli medicines also contain acetaminophen. Make sure you [...] water are not available, use alcohol-based hand electron microscopist. Avoid touching your eyes, nose, and mouth [...] like ibuprofen (Motrin) (more content not included)... [facility] CORONAVIRUS 2019 BY PCRon DATE OF SYMPTOM ONSET [YYYYMMDD]? [id number] [facility] Comment on above: Performed By: #### C OV19 #### [facility] [address] [place] [address] Lab Specimen Source Nasal, Nasopharyngeal [facility] Comment on above: Performed By: #### C OV19 #### [facility] [address] [place] [address] Provider Note - ED v2on Provider Note [...] and symptoms. Symptoms have been refractory to bsae-vou-jciwrxs medications.. Triage Information: Most recent Vital Sign [...] Updated: 12-Sep-2020 09:08 by Emile Michelle (PAC) [facility] Provider Note - ED v2on 06-10 [...] SIGNS: T PRBP SpO2O2(LPM) %FiO2 Method 07-Jul-2020 13:05:[id number]/ [id number] 97 PHYSICAL EXAM CONSTITUTIONAL: Appearance: well [...] on exam a (more content not included)... [facility] URINE CULTURE,BACTERIALon URINE CULTURE,BACTERIAL PATIENT: JONO LOPEZ LOCATION: [facility]#: [id number] : 57 AGE: SEX: M ORDERED BY: CHRISS MARIE SOURCE: URINE COLLECTED: 07/07/20 14:07 ANTIBIOTICS AT CHAIM.: RECEIVED : 07/07/20 19:19 SITE: [facility] URINE CULTURE,BACTERIAL FINAL 07/08/20 12:57 NO SIGNIFICANT GROWTH. [facility] Comment on above: Performed By: #### [facility] #### [facility] [address] [place] [address] OCT MACULA CIRRUS OU (BOTH E YES) [facility] Vital Signs Date Time Vital Sign Value Performing Clinician Facility 08-20-2024 08:07-0500 Body height 177.8 cm Adam Jack DPM FACFAS Work Phone: [facility] 08-20-2024 08:07-0500 Body mass index (BMI) [Ratio] 43.91 kg/m2 Adam Jack DPM FACFAS Work Phone: [facility] 08-20-2024 08:07-0500 Body weight 138.8 kg Adam Jack DPM FACFAS Work Phone: [facility] 08-20-2024 08:07-0500 Diastolic blood pressure 82 mm[Hg] Adam Nhungclarissa DPM FACFAS Work Phone: [facility] 08-20-2024 08:07-0500 Heart rate 71 /min Adam Jack DPM FACFAS Work Phone: [facility] 08-20-2024 08:07-0500 Systolic blood pressure 138 mm[Hg] Adam Jack DPM FACFAS Work Phone: [facility] 07-25-2024 08:43-0500 Body height 177.8 cm Liliana Waller MD Work Phone: [facility] 07-25-2024 08:43-0500 Body mass index (BMI) [Ratio] 43.91 kg/m2 Liliana Waller MD Work Phone: [facility] 07-25-2024 08:43-0500 Body temperature 98.4 [degF] Liliana Waller MD Work Phone: [facility] 07-25-2024 08:43-0500 Body weight 138.8 kg Liliana Waller MD Work Phone: [facility] 07-25-2024 08:43-0500 Diastolic blood pressure 80 mm[Hg] Liliana Waller MD Work Phone: [facility] 07-25-2024 08:43-0500 Heart rate 70 /min Liliana Waller MD Work Phone: [facility] 07-25-2024 08:43-0500 SaO2% (BldA) [Mass fraction] 97 % Liliana Waller MD Work Phone: [facility] 07-25-2024 08:43-0500 Systolic blood pressure 142 mm[Hg] Liliana Waller MD Work Phone: [facility] 06-20-2024 12:58-0500 Diastolic blood pressure 70 mm[Hg] Luiz MORRISON [facility] 06-20-2024 12:58-0500 Mean blood pressure 93 mm[Hg] Luiz MORRISON [facility] 06-20-2024 12:58-0500 Systolic blood pressure 138 mm[Hg] Luiz MORRISON [facility] 06-20-2024 12:51-0500 Blood Pressure Location Luiz MORRISON [facility] 06-20-2024 12:51-0500 Diastolic blood pressure 80 mm[Hg] Luiz MORRISON [facility] 06-20-2024 12:51-0500 Heart rate 78 /min Luiz MORRISON [facility] 06-20-2024 12:51-0500 Respiratory rate 16 /min Luiz MORRISON [facility] 06-20-2024 12:51-0500 Systolic blood pressure 150 mm[Hg] Luiz MORRISON [facility] 06-04-2024 07:58-0400 Body height 177.8 cm Adam Jack DPM FACFAS Work Phone: [facility] 06-04-2024 07:58-0400 Body mass index (BMI) [Ratio] 42.62 kg/m2 Adam Jack DPM FACFAS Work Phone: [facility] 06-04-2024 07:58-0400 Body weight 134.72 kg Adam Jack DPM FACFAS Work Phone: [facility] 06-04-2024 07:58-0400 Diastolic blood pressure 71 mm[Hg] Adam Jack DPM FACFAS Work Phone: [facility] 06-04-2024 07:58-0400 Heart rate 74 /min Adam Jack DPM FACFAS Work Phone: [facility] 06-04-2024 07:58-0400 Systolic blood pressure 132 mm[Hg] Adam Jack DPM FACFAS Work Phone: [facility] 05-10-2024 09:24-0400 Body height 177.8 cm Liliana Waller MD Work Phone: [facility] 05-10-2024 09:24-0400 Body mass index (BMI) [Ratio] 42.62 kg/m2 Liliana Waller MD Work Phone: [facility] 05-10-2024 09:24-0400 Body temperature 98.2 [degF] Liliana Waller MD Work Phone: [facility] 05-10-2024 09:24-0400 Body weight 134.72 kg Liliana Waller MD Work Phone: [facility] 05-10-2024 09:24-0400 Diastolic blood pressure 68 mm[Hg] Liliana Waller MD Work Phone: [facility] 05-10-2024 09:24-0400 Heart rate 67 /min Liliana Waller MD Work Phone: [facility] 05-10-2024 09:24-0400 SaO2% (BldA) [Mass fraction] 97 % Liliana Waller MD Work Phone: [facility] 05-10-2024 09:24-0400 Systolic blood pressure 130 mm[Hg] Liliana Waller MD Work Phone: [facility] 05-07-2024 13:42-0400 Body height 177.8 cm [facility] 05-07-2024 13:42-0400 Body mass index (BMI) [Ratio] 41.7 kg/m2 [facility] 05-07-2024 13:42-0400 Body weight 131.99 kg [facility] 05-07-2024 13:42-0400 Diastolic blood pressure 69 mm[Hg] [facility] 05-07-2024 13:42-0400 Heart rate 78 /min [facility] 05-07-2024 13:42-0400 SaO2% (BldA) [Mass fraction] 96 % [facility] 05-07-2024 13:42-0400 Systolic blood pressure 148 mm[Hg] [facility] 04-13-2024 10:38-0400 Body mass index (BMI) [Ratio] 42.07 kg/m2 Elyssa Adler MD Work Phone: [facility] 04-13-2024 10:38-0400 Body temperature 98.4 [degF] Elyssa Adler MD Work Phone: [facility] 04-13-2024 10:38-0400 Body weight 133 kg Elyssa Adler MD Work Phone: [facility] 04-13-2024 10:38-0400 Diastolic blood pressure 82 mm[Hg] Elyssa Adler MD Work Phone: [facility] 04-13-2024 10:38-0400 Heart rate 71 /min Elyssa Adler MD Work Phone: [facility] 04-13-2024 10:38-0400 SaO2% (BldA) [Mass fraction] 97 % Elyssa Adler MD Work Phone: [facility] 04-13-2024 10:38-0400 Systolic blood pressure 132 mm[Hg] Elyssa Adler MD Work Phone: [facility] 03-12-2024 13:59-0400 Body height 177.8 cm [facility] 03-12-2024 13:59-0400 Body mass index (BMI) [Ratio] 40.7 kg/m2 [facility] 03-12-2024 13:59-0400 Body weight 128.82 kg [facility] 03-12-2024 13:59-0400 Diastolic blood pressure 69 mm[Hg] [facility] 03-12-2024 13:59-0400 Heart rate 75 /min [facility] 03-12-2024 13:59-0400 SaO2% (BldA) [Mass fraction] 94 % [facility] 03-12-2024 13:59-0400 Systolic blood pressure 140 mm[Hg] [facility] 09-30-2023 08:46-0500 Body height 177.8 cm Delores Ac MD Work Phone: [facility] 09-30-2023 08:46-0500 Body mass index (BMI) [Ratio] 42.04 kg/m2 Delores Ac MD Work Phone: [facility] 09-30-2023 08:46-0500 Body weight 132.9 kg Delores Ac MD Work Phone: [facility] 09-30-2023 08:46-0500 Diastolic blood pressure 60 mm[Hg] Delores Ac MD Work Phone: [facility] 09-30-2023 08:46-0500 Heart rate 76 /min Delores Ac MD Work Phone: [facility] 09-30-2023 08:46-0500 Systolic blood pressure 138 mm[Hg] Delores Ac MD Work Phone: [facility] 06-15-2023 13:25-0500 Diastolic blood pressure 90 mm[Hg] Luiz MORRISON [facility] 06-15-2023 13:25-0500 Mean blood pressure 110 mm[Hg] Luiz MORRISON [facility] 06-15-2023 13:25-0500 Systolic blood pressure 150 mm[Hg] Luiz MORRISON [facility] 06-15-2023 13:20-0500 Blood Pressure Location Luiz MORRISON [facility] 06-15-2023 13:20-0500 Diastolic blood pressure 94 mm[Hg] Luiz MORRISON [facility] 06-15-2023 13:20-0500 Heart rate 83 /min Luiz MORRISON [facility] 06-15-2023 13:20-0500 Systolic blood pressure 150 mm[Hg] Luiz MORRISON [facility] 02-21-2023 13:30-0400 Body height 172.72 cm Burak Rangel Other [facility] Other 02-21-2023 13:30-0400 Body mass index (BMI) [Ratio] 44.55 kg/m2 Burak Rangel Other [facility] Other 02-21-2023 13:30-0400 Body weight 132.9 kg Burak Rangel Other [facility] Other 02-21-2023 13:30-0400 Diastolic blood pressure 71 mm[Hg] Burak Rangel Other [facility] Other 02-21-2023 13:30-0400 SaO2% (BldA) [Mass fraction] 96 % Burak Rangel Other [facility] Other 02-21-2023 13:30-0400 Systolic blood pressure 167 mm[Hg] uBrak Rangel Other [facility] Other 11-03-2022 15:48-0400 Blood Pressure Location Luiz MORRISON [facility] 11-03-2022 15:48-0400 Diastolic blood pressure 76 mm[Hg] Luiz MORRISON [facility] 11-03-2022 15:48-0400 Heart rate 76 /min Luiz MORRISON [facility] 11-03-2022 15:48-0400 Systolic blood pressure 138 mm[Hg] Luiz MORRISON [facility] 09-28-2022 12:04-0500 Diastolic blood pressure 60 mm[Hg] Terri Allsop [facility] Phone: [facility] [facility] Work Phone: 09-28-2022 12:04-0500 Systolic blood pressure 118 mm[Hg] Terri Allsop Work Phone: [facility] 600 DO Work Phone: 09-28-2022 11:58-0500 Diastolic blood pressure 42 mm[Hg] Terri Allsop Work Phone: [facility] [facility] DO Work Phone: 09-28-2022 11:58-0500 Systolic blood pressure 118 mm[Hg] Terri Allsop Work Phone: [facility] 600 DO Work Phone: 09-28-2022 11:57-0500 Body height 177.8 cm Terri Allsop Work Phone: [facility] [address] DO Work Phone: 09-28-2022 11:57-0500 Body mass index (BMI) [Ratio] 40.89 kg/m2 Terri Allsop Work Phone: [facility] 600 DO Work Phone: 09-28-2022 11:57-0500 Body surface area Derived from formula 2.43 m2 Terri Allsop Work Phone: [facility] 600 DO Work Phone: 09-28-2022 11:57-0500 Body weight 129.28 kg Terri Allsop Work Phone: [facility] 600 DO Work Phone: 09-28-2022 11:57-0500 Diastolic blood pressure 44 mm[Hg] Terri Allsop Work Phone: [facility] 600 DO Work Phone: 09-28-2022 11:57-0500 Heart rate 80 /min Terri Allsop Work Phone: [facility] 600 DO Work Phone: 09-28-2022 11:57-0500 Systolic blood pressure 120 mm[Hg] Terri Allsop Work Phone: [facility] 600 DO Work Phone: 09-10-2022 10:02-0500 Body height 177.8 cm Terri Powellsop Work Phone: [facility] 600 DO Work Phone: 09-10-2022 10:02-0500 Body mass index (BMI) [Ratio] 41.32 kg/m2 Terri Allsop Work Phone: [facility] 600 DO Work Phone: 09-10-2022 10:02-0500 Body surface area Derived from formula 2.44 m2 Terri Allsop Work Phone: [facility] 600 DO Work Phone: 09-10-2022 10:02-0500 Body weight 130.64 kg Terri Allsop Work Phone: [facility] 600 DO Work Phone: 09-10-2022 10:02-0500 Diastolic blood pressure 70 mm[Hg] Terri Powellsop Work Phone: [facility] 600 DO Work Phone: 09-10-2022 10:02-0500 Heart rate 88 /min Terri Powellsop Work Phone: [facility] 600 DO Work Phone: 09-10-2022 10:02-0500 Systolic blood pressure 162 mm[Hg] Terri Powellsop Work Phone: [facility] 600 DO Work Phone: 06-24-2022 13:10-0500 Blood Pressure Location William Hernandezy [facility] 06-24-2022 13:10-0500 Diastolic blood pressure 87 mm[Hg] William Hernandezy [facility] 06-24-2022 13:10-0500 Heart rate 91 /min William Mourany [facility] 06-24-2022 13:10-0500 Respiratory rate 21 /min William Oquendourany [facility] 06-24-2022 13:10-0500 SaO2% (BldA) [Mass fraction] 97 % William Mourany [facility] 06-24-2022 13:10-0500 Systolic blood pressure 152 mm[Hg] William Hernandezy [facility] 06-24-2022 13:05-0500 Blood Pressure Location William Oquendourany [facility] 06-24-2022 13:05-0500 Diastolic blood pressure 94 mm[Hg] William Brush [facility] 06-24-2022 13:05-0500 Heart rate 91 /min William Mourany [facility] 06-24-2022 13:05-0500 Respiratory rate 24 /min William Mourany [facility] 06-24-2022 13:05-0500 SaO2% (BldA) [Mass fraction] 97 % William Mourany [facility] 06-24-2022 13:05-0500 Systolic blood pressure 164 mm[Hg] William Mourany [facility] 06-24-2022 13:00-0500 Heart rate 92 /min William Mourany [facility] 06-24-2022 13:00-0500 Respiratory rate 18 /min William Mourany [facility] 06-24-2022 13:00-0500 SaO2% (BldA) [Mass fraction] 96 % William Mourany [facility] 06-24-2022 13:00-0500 Systolic blood pressure 162 mm[Hg] William Mourany [facility] 06-24-2022 12:40-0500 Body temperature 97.16 [degF] William Mourany [facility] 06-24-2022 12:37-0500 Respiratory rate 20 /min William Mourany [facility] 06-24-2022 12:30-0500 Respiratory rate 20 /min William Mourany [facility] 06-24-2022 12:25-0500 Respiratory rate 20 /min William Mourany [facility] 06-24-2022 11:31-0500 Body temperature 97.16 [degF] William Brush [facility] 05-12-2022 08:06-0400 Blood Pressure Location Luiz MORRISON [facility] 05-12-2022 08:06-0400 Diastolic blood pressure 80 mm[Hg] Luiz MORRISON [facility] 05-12-2022 08:06-0400 Heart rate 80 /min Luiz MORRISON [facility] 05-12-2022 08:06-0400 Respiratory rate 16 /min Luiz MORRISON [facility] 05-12-2022 08:06-0400 Systolic blood pressure 151 mm[Hg] Luiz MORRISON [facility] 04-28-2022 11:54-0400 Body temperature 99.2 [degF] MD Terri Santos Work Phone: [facility] 04-28-2022 11:54-0400 Diastolic blood pressure 91 mm[Hg] MD Terri Santos Work Phone: [facility] 04-28-2022 11:54-0400 Heart rate 92 /min MD Terri Santos Work Phone: [facility] 04-28-2022 11:54-0400 Respiratory rate 18 /min MD Terri Santos Work Phone: [facility] 04-28-2022 11:54-0400 SaO2% (BldA) [Mass fraction] 92 % MD Terri Santos Work Phone: [facility] 09-21-2022 11:54-0400 Systolic blood pressure 173 mm[Hg] MD Terri Santos Work Phone: [facility] 04-28-2022 05:14-0400 Body weight 126.5 kg MD Terri Santos Work Phone: [facility] 04-27-2022 10:48-0400 Inhaled oxygen flow rate 6 L/min MD Terri Santos Work Phone: [facility] 04-27-2022 09:08-0400 Body height 180.34 cm MD Terri Santos Work Phone: [facility] 04-27-2022 09:08-0400 Body mass index (BMI) [Ratio] 37.6 kg/m2 MD Terri Santos Work Phone: [facility] 04-01-2022 10:10-0400 Blood Pressure Location Leonid NILL [facility] [place] 04-01-2022 10:10-0400 Diastolic blood pressure 69 mm[Hg] Leonid NILL [facility] [place] 04-01-2022 10:10-0400 Heart rate 79 /min Leonid NILL [facility] [place] 04-01-2022 10:10-0400 Respiratory rate 16 /min Leonid NILL [facility] [place] 04-01-2022 10:10-0400 Systolic blood pressure 167 mm[Hg] Leonid NILL [facility] [place] 02-22-2022 14:45-0400 Body height 172.72 cm Burak Rangel Other [facility] Other 02-22-2022 14:45-0400 Body mass index (BMI) [Ratio] 45.08 kg/m2 Burak Rangel Other [facility] Other 02-22-2022 14:45-0400 Body temperature 97.5 [degF] Burak Gayban Other [facility] Other 02-22-2022 14:45-0400 Body weight 134.49 kg Burak Rangel Other [facility] Other 02-22-2022 14:45-0400 Diastolic blood pressure 75 mm[Hg] Burak Rangel Other [facility] Other 02-22-2022 14:45-0400 SaO2% (BldA) [Mass fraction] 96 % Burak Rangel Other [facility] Other 02-22-2022 14:45-0400 Systolic blood pressure 148 mm[Hg] Burak Rangel Other [facility] Other 12-22-2021 08:15-0400 Blood Pressure Location Luiz Sumomi [facility] 12-22-2021 08:15-0400 Diastolic blood pressure 71 mm[Hg] Luiz MORRISON [facility] 12-22-2021 08:15-0400 Heart rate 74 /min Luiz MORRISON [facility] 12-22-2021 08:15-0400 Systolic blood pressure 139 mm[Hg] Luiz MORRISON [facility] 12-11-2021 08:18-0400 Blood Pressure Location William Brush [facility] [place] 12-11-2021 08:18-0400 Diastolic blood pressure 77 mm[Hg] William Brush [facility] [place] 12-11-2021 08:18-0400 Heart rate 77 /min William Brush [facility] [place] 12-11-2021 08:18-0400 Systolic blood pressure 155 mm[Hg] William Brush [facility] 11-04-2021 10:36-0400 Blood Pressure Location Luiz MORRISON [facility] 11-04-2021 10:36-0400 Diastolic blood pressure 78 mm[Hg] Luiz MORRISON [facility] 11-04-2021 10:36-0400 Heart rate 85 /min Luiz MORRISON [facility] 11-04-2021 10:36-0400 Respiratory rate 16 /min Luiz MORRISON [facility] 11-04-2021 10:36-0400 Systolic blood pressure 144 mm[Hg] Luiz MORRISON [facility] 08-31-2021 15:23-0500 Diastolic blood pressure 60 mm[Hg] Terri Powellsop Work Phone: [facility] 600 DO Work Phone: 08-31-2021 15:23-0500 Systolic blood pressure 130 mm[Hg] Terri Allsop Work Phone: [facility] 600 DO Work Phone: 08-31-2021 15:08-0500 Body height 177.8 cm Terri Allsop Work Phone: [facility] 600 DO Work Phone: 08-31-2021 15:08-0500 Body mass index (BMI) [Ratio] 40.89 kg/m2 Terri Powellsop Work Phone: [facility] 600 DO Work Phone: 08-31-2021 15:08-0500 Body surface area Derived from formula 2.43 m2 Terri Allsop Work Phone: [facility] 600 DO Work Phone: 08-31-2021 15:08-0500 Body weight 129.28 kg Terri Powellsop Work Phone: [facility] 600 DO Work Phone: 08-31-2021 15:08-0500 Diastolic blood pressure 79 mm[Hg] Terri Allsop Work Phone: [facility] 600 DO Work Phone: 08-31-2021 15:08-0500 Heart rate 75 /min Terri Allsop Work Phone: [facility] 600 DO Work Phone: 08-31-2021 15:08-0500 Systolic blood pressure 144 mm[Hg] Terri Powellsop Work Phone: [facility] 600 DO Work Phone: 03-10-2021 15:09-0400 Body height 177.8 cm Terri Powellsop Other Phone: [facility] 03-10-2021 15:09-0400 Body temperature 98.42 [degF] Terri Powellsop Other Phone: [facility] 03-10-2021 15:09-0400 Diastolic blood pressure 70 mm[Hg] Terri Powellsop Other Phone: [facility] 03-10-2021 15:09-0400 Heart rate 82 /min Terri Powellsop Other Phone: [facility] 03-10-2021 15:09-0400 SaO2% (BldA) [Mass fraction] 95 % Terri Powellsop Other Phone: [facility] 03-10-2021 15:09-0400 Systolic blood pressure 132 mm[Hg] Terri Powellsop Other Phone: [facility] Encounters Encounter Date Encounter Type Care Provider Facility Start: 08-20-2024 End: 08-20-2024 Bamboo flowsheet Adam Jack DPM FACFAS Work Phone: [facility] Start: 08-20-2024 End: 08-20-2024 Bamboo flowsheet Adam Jack DPM FACFAS Work Phone: [facility] Start: 08-20-2024 End: 08-20-2024 Office outpatient visit 15 minutes Adam Jack DPM FACFAS Work Phone: [facility] Comment on above: Venous insufficiency (chronic) (peripheral) (Primary Dx); Onychomycosis; Pain in left toe(s); Pain in right toe(s) Start: 08-20-2024 End: 08-20-2024 ambulatory ADAM JACK Not Available Start: 08-13-2024 End: 08-13-2024 Refill Jessica PERRIN Comment on above: Primary hypertension (CMS/HCC); Benign prostatic hyperplasia without lower urinary tract symptoms; Seasonal allergies Start: 08-11-2024 End: 08-11-2024 ambulatory Luiz MORRISON Facility:[facility] Start: 08-11-2024 End: 08-11-2024 Patient encounter procedure Luiz MORRISON [facility] Start: 07-25-2024 End: 07-25-2024 Lorenzo Waller MD Work Phone: [facility] Start: 07-25-2024 End: 07-25-2024 Lorenzo Waller MD Work Phone: [facility] Start: 07-25-2024 End: 07-25-2024 Office outpatient visit 25 minutes Liliana Waller MD Work Phone: [facility] Comment on above: Acute deep vein thro mbosis (DVT) of distal vein of right lower extremity (CMS/HCC) (Primary Dx); residential current use of anticoagulant; Essential hypertension (CMS/HCC); PVD (peripheral vascular disease) (CMS/HCC); BMI 40.0-44.9, adult (CMS/HCC); Morbid obesity (CMS/HCC) Start: 07-25-2024 End: 07-25-2024 ambulatory LILIANA WALLER Not Available Start: 07-24-2024 End: 07-24-2024 ambulatory Luiz Morrison Facility:[facility] Start: 06-20-2024 End: 06-20-2024 ambulatory Luiz MORRISON Facility: [facility] Start: 06-20-2024 End: 06-20-2024 Patient encounter procedure Luiz Manuel MORRISON [facility] Start: 06-13-2024 End: 06-13-2024 Refill Heavenfeng Lopez MA [facility] Comment on above: Primary hypertension (CMS/HCC); Seasonal allergies Start: 06-04-2024 End: 06-04-2024 Bamboo flowsheet Adam Hookerclarissa DPM FACFAS Work Phone: [facility] Start: 06-04-2024 End: 06-04-2024 Bamboo flowsheet Adam Hookerclarissa DPM FACFAS Work Phone: [facility] Start: 06-04-2024 End: 06-04-2024 Patient encounter procedure Adam Jack DPM FACFAS Work Phone: [facility] Comment on above: Onychomycosis (Prima ry Dx); Pain in left toe(s); Pain in right toe(s) Start: 06-04-2024 End: 06-04-2024 ambulatory ADAM JACK Not Available Start: 06-01-2024 End: 06-01-2024 ambulatory TERRI SANTOS Facility:[facility] Start: 06-01-2024 End: 06-01-2024 Patient [...] Start: 05-25-2024 End: 05-25-2024 ambulatory Luiz MORRISON Facility:[facility] Start: 05-25-2024 End: 05-25-2024 Patient encounter procedure Luiz MORRISON [facility] Start: 05-10-2024 End: 05-10-2024 Bamboo flowsheet Liliana [...] of right lower extremity (CMS/HCC) (Primary Dx); residential current use of anticoagulant; Cardiomyopathy, unspecified type (CMS/HCC); PVD (peripheral vascular disease) (CMS/HCC); Essential hypertension (CMS/HCC); BMI 40.0-44.9, adult (CMS/HCC); Morbid obesity (CMS/HCC) Start: 05-10-2024 End: 05-10-2024 ambulatory LILIANA WALLER Not Available Start: 05-07-2024 End: 05-07-2024 ambulatory [facility] Work Phone: Start: 05-07-2024 End: 05-07-2024 Patient encounter procedure [facility] Work Phone: Start: 04-24-2024 End: [...] Start: 03-12-2024 End: 03-12-2024 Patient encounter procedure [facility] Work Phone: Start: 01-09-2024 End: 01-09-2024 ambulatory ADAM D DOLCE Not Available Start: 12-01-2023 End: 12-01-2023 ambulatory TERRI D ALLSOP Not Available Start: 11-25-2023 End: 11-25-2023 ambulatory Terri D Allsop Facility:[facility] Start: 11-25-2023 End: 11-25-2023 Patient encounter procedure Terri D Allsop [facility] Start: 11-17-2023 End: 11-17-2023 ambulatory TERRI D ALLSOP Not Available Start: 10-31-2023 End: 10-31-2023 ambulatory ADAM D DOLCE Not Available Start: 10-21-2023 End: 10-21-2023 ambulatory Terri D Allsop Facility:[facility] Start: 10-21-2023 End: 10-21-2023 Patient encounter procedure Terri D Allsop [facility] Start: 09-30-2023 End: 09-30-2023 Office outpatient visit 25 minutes Delores Ac MD Work Phone: [facility] Comment on above: Essential hypertensi on; Non-ischemic cardiomyopathy (CMS/HCC); Hyperlipidemia, unspecified hyperlipidemia type; Obstructive sleep apnea, adult; Morbid obesity with BMI of 40.0-44.9, adult (CMS/HCC) Start: 09-30-2023 End: 09-30-2023 ambulatory DELORES Noguera [facility] Start: 08-25-2023 End: 08-25-2023 ambulatory TERRI D ALLSOP Not Available Start: 06-15-2023 End: 06-15-2023 Patient encounter procedure Luiz MORRISON [facility] Start: 04-30-2023 End: 04-30-2023 Patient encounter procedure Luiz MORRISON [facility] Start: 02-21-2023 Office outpatient vi sit 15 minutes Burak Rangel [facility] Start: 02-21-2023 End: 02-21-2023 ambulatory MD Terri Santos Work Phone: [facility] Work Phone: Start: 02-21-2023 End: 02-21-2023 Patient encounter procedure MD Terri Santos Work Phone: [facility] Work Phone: Start: 11-04-2022 Rx [facility] Work Phone: Start: 11-03-2022 End: 11-03-2022 Patient encounter procedure Luiz MORRISON [facility] Start: 09-29-2022 Chart Update [facility]m p [facility] Work Phone: Start: 09-29-2022 End: 09-29-2022 Patient encounter procedure Delores Ac [facility] Start: 09-28-[address] Delores Ac Facility: Start: 09-28-2022 Office outpatient vi sit 10 minutes Terri [facility] Work Phone: Start: 09-10-2022 Office outpatient vi sit 25 minutes Terri Andrelay Work Phone: [facility] 600 DO Work Phone: Start: 09-10-2022 Patient encounter procedure Terri Santos Work Phone: [facility] 600 DO Work Phone: Start: 09-10-[address] Terri Santos Facility: Start: 07-02-2022 Rx Renewal Terri Rm p Work Phone: [facility] 250 DO Work Phone: Start: 06-24-2022 End: 06-24-2022 Patient encounter procedure William Brush [facility] Start: 05-21-2022 End: 05-21-2022 Patient encounter procedure Cici Merida OD Work Phone: Ophthalmology Comment on above: Epiretinal membrane (ERM) of both eyes (Primary Dx); Floppy eyelid syndrome of both eyes; Combined forms of age-related cataract of both eyes; Posterior vitreous detachment of both eyes; Vitreous floaters of both eyes Start: 05-12-2022 End: 05-12-2022 Patient encounter procedure Luiz MORRISON [facility] Start: 05-10-2022 Rx Renewal Terri Powellso p Work Phone: [facility] 250 DO Work Phone: Start: 04-30-2022 End: 04-30-2022 Patient encounter procedure Luiz MORRISON [facility] Start: 04-27-2022 End: 04-28-2022 Admission to same day surgery center MD Terri Santos Work Phone: [facility] [place] Start: 04-23-2022 End: 04-23-2022 Patient encounter procedure MD Terri Santos Work Phone: [facility] Start: 04-13-2022 End: 04-13-2022 Patient encounter procedure MD Terri Santos Work Phone: [facility] Start: 04-01-2022 End: 04-01-2022 Lab Drop off Adam Jack [facility] Start: 04-01-2022 End: 04-01-2022 Patient encounter procedure Leonid WHITEHEAD [facility] [place] Start: 03-26-2022 End: 04-07-2022 Pre-admission assessment Milo Gonzales [facility] Start: 03-17-2022 End: 03-17-2022 Patient encounter procedure Luiz MORRISON [facility] [place] Start: 03-02-2022 End: 03-02-2022 Patient encounter procedure Luiz MORRISON [facility] Start: 02-22-2022 End: 02-22-2022 ambulatory Burak Rangel Other [facility] Other Start: 02-22-2022 Office outpatient vi sit 15 minutes Kamjuan Rangel [facility] Start: 02-22-2022 End: 02-22-2022 Patient encounter procedure MD Terri Santos Work Phone: [facility] Start: 01-21-2022 End: 01-21-2022 Patient encounter procedure MD Terri Santos Work Phone: [facility] [place] Start: 12-22-2021 End: 12-22-2021 Lab Drop off Luiz MORRISON [facility] Start: 12-22-2021 End: 12-22-2021 Patient encounter procedure Luiz MORRISON [facility] [place] Start: 12-11-2021 End: 02-20-2022 Pre-admission assessment William Brush [facility] Start: 12-11-2021 End: 12-11-2021 Patient encounter procedure William Brush [facility] [place] Start: 12-10-2021 End: 12-10-2021 Patient encounter procedure Belinda VELASQUEZ [facility] Start: 12-08-2021 End: 12-08-2021 Patient encounter procedure Luiz MORRISON [facility] Start: 12-01-2021 End: 12-01-2021 Patient encounter procedure Luiz MORRISON [facility] Start: 11-19-2021 End: 11-19-2021 Patient encounter procedure Luiz MORRISON [facility] Start: 11-04-2021 End: 03-30-2022 Patient encounter procedure Luiz MORRISON [facility] [place] Start: 08-31-2021 Office outpatient vi sit 25 minutes Terri Santos Work Phone: [facility] 600 DO Work Phone: Start: 06-10-2021 Rx Renewal Terri greene Work Phone: [facility] 600 DO Work Phone: Start: 03-10-2021 End: 03-10-2021 Emergency department patient visit Chriss Marie [facility] Start: 04-11-2018 End: 04-11-2018 Emergency department patient visit Danyell [facility] Facility:[facility] Procedures Date Procedure Procedure Detail [...] Tonsillectomy Luiz MORRISON Total colonoscopy Terri Feng llsop Work Phone: Plan of Treatment Date Care Activity Detail Author Start: 09-03-2033 DTaP/Tdap/Td Vaccine s (2 - Td or Tdap) DTaP/Tdap/Td Vaccines (2 - Td or Tdap) [facility] Start: 09-03-2033 Urine microalbumin profile DTaP,Tdap,Td Vaccine (2 - Td or Tdap) [facility] Start: 06-24-2032 Screening for malign ant neoplasm of colon [facility] Start: 11-23-2024 End: 11-23-2024 Patient encounter procedure 11/23/2024 2:30 PM EDT Office Visit [facility] [address] [id number] Josselin Decker MD [address] [place] [address] oct/erm Ophthalmology Comment on above: oct/erm Start: 11-08-2024 End: 11-08-2024 Patient encounter procedure 11/08/2024 9:00 AM EDT Office Visit [facility] [address] [place] [phone] Liliana Waller MD [address] [place] [address] MARIAM GARZA Start: 11-05-2024 End: 11-05-2024 Patient encounter procedure 11/05/2024 8:00 AM EDT Procedure Visit [facility] [address] [place] [phone] Adam Jack, DPM FACFAS [address] [facility] [place] [address] [facility] Start: 09-25-2024 End: 09-25-2024 Patient encounter procedure 09/25/2024 9:00 AM EST Office Visit [facility] [address] [facility] [address] [place] [phone] Delores Ac MD [address] [facility] [address], [address] [place] [address] [facility] Start: 08-20-2024 End: 08-20-2024 Patient encounter procedure [facility] Comment on above: Arrived Start: 07-25-2024 End: 07-25-2024 Patient encounter procedure 07/25/2024 8:40 AM EST Office Visit [facility] [address] [place] [address] Liliana Waller MD [address] [place] [address] Arrived [facility] Comment on above: [...] extremity (CMS/HCC) Expected: 04/13/2024 (Approximate), Expires: 04/13/2025 [facility] Work Phone: Comment on above: Expected: 04/13/2024 (Approximate), Expires: 04/13/2025 Start: 04-13-2024 End: 04-13-2024 Patient encounter procedure 04/13/2024 10:40 AM EDT Office Visit [facility]IAM PERRIN [address] [place] [phone] Elyssa Adler MD [address] [place] [address] Arrived [facility] Comment on above: Arrived Start: 04-08-2024 Influenza vaccination Influenza Vacc ine (#1) [facility] Start: 10-29-2023 Zoster Vaccines (2 o f 2) Zoster Vaccines (2 of 2) [facility] Start: 09-30-2023 FUV, Provider: Delores Ac, Status: Pen, Time: 9:00 AM FUV, Provider: Delores Ac, Status: Pen, Time: 9:00 AM [facility] Work Phone: Start: 08-08-2023 Advance Directive Discussion Advance Directive Discussion [facility] Start: 04-08-2023 COVID-19 Vaccine ( season) COVID-19 Vaccine ( season) [facility] Start: 09-28-2022 NURSEVST, Provider: ISHA TRINIDAD PROCESSING LEAD 1,[id number], Status: Pen, Time: 11:30 AM NURSEVST, Provider: ISHA TRINIDAD PROCESSING LEAD 1,[id number], Status: Pen, Time: 11:30 AM [facility] Work Phone: Start: 08-31-2022 FUV, Provider: Delores Ac, Status: Pen, Time: 8:40 AM FUV, Provider: Delores Ac, Status: Pen, Time: 8:40 AM [facility] Work Phone: Start: 08-03-2022 Pneumococcal Vaccine : 65+ (2 of 2 - PCV) Pneumococcal Vaccine: 65+ (2 of 2 - PCV) [facility] Start: 08-03-2022 Pneumococcal Vaccine : 65+ Years (2 - PCV) Pneumococcal Vaccine: 65+ Years (2 - PCV) [facility] Start: 04-28-2022 [facility] Work Phone: Start: 04-27-2022 Hospital admission [facility] Work Phone: Start: 04-08-2022 Influenza vaccination INFLUENZA (#1) [facility] Start: 01-21-2022 MR prostate wo/w con MR prostate wo/ w con [facility] Start: 10-05-2021 COVID-19 VACCINE (4 - Booster for Moderna series) COVID-19 VACCINE (4 - Booster for Moderna series) [facility] Start: 08-08-2021 ADVANCE DIRECTIVE DISCUSSION ADVANCE DIRECTIVE DISCUSSION [facility] Start: 08-08-2021 DEPRESSION ASSESSMENT DEPRESSION ASS ESSMENT [facility] Start: 07-10-2021 STACIA, Provider : Delores Ac, Status: Pen, Time: 10:10 AM STACIA, Provider: Delores Ac, Status: Pen, Time: 10:10 AM [facility] 600 DO Work Phone: Start: 01-01-2021 PNEUMOCOCCAL: 65+ (1 - PCV) PNEUMOCOCCAL: 65+ (1 - PCV) [facility] Start: 10-07-2012 Colonoscopy COLONOSCOPY [facility] Start: 10-07-2012 COLORECTAL CANCER SCREENING COLORECTAL CANCER SCREENING [facility] Start: 10-07-2012 Screening for malign ant neoplasm of colon [facility] Start: 01-01-2011 PROSTATE CANCER SCREENING DISCUSSION PROSTATE CANCER SCREENING DISCUSSION [facility] Start: 01-01-2011 Prostate specific antigen measurement Prostate Cancer Screening Discussion [facility] Start: 01-01-2006 SHINGRIX VACCINE (1 of 2) SHINGRIX VACCINE (1 of 2) [facility] Start: 01-01-2001 COLOGUARD (FIT-DNA) COLOGUARD (FIT-D NA) [facility] Start: 01-01-[address] COLONOGRAPHY [facility] Start: 01-01-2001 DIABETES SCREEN DIABETES SCREEN [facility] Start: 01-01-2001 Diabetes Screening Diabetes Screenin g [facility] Start: 01-01-2001 FECAL OCCULT BLOOD FECAL OCCULT BLOO D [facility] Start: 01-01-2001 Screening for malign ant neoplasm of colon [facility] Start: 01-01-2001 [facility] Start: 01-01-1991 Lipid panel [facility] Start: 01-01-1991 LIPID SCREEN LIPID SCREEN [facility] Start: 01-01-1975 Urine microalbumin profile DTAP,TDAP,TD (1 - Tdap) [facility] Start: 01-01-1974 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 Visit Annual PCP Team Chronic Disease Visit [facility] Start: 01-01-1974 BP Controlled (<130/80) BP Controlle d (<130/80) [facility] Start: 01-01-1974 Depression Screening Depression Scre ening [facility] Start: 01-01-1974 Diabetes mellitus screening Diabetes Screening [facility] Start: 01-01-1974 HEPATITIS C SCREENING HEPATITIS C [facility] Start: 01-01-1974 Hepatitis C screening Hepatitis C [facility] Start: 1955 Lipid panel Lipid Panel [facility] Start: 1955 Screening for malign ant neoplasm of colon [facility] Start: 1955 Yearly Adult Physical Yearly Adult P hysical [facility] Patient referral [facility] Work Phone: [facility] Immunizations Immunization Date Immunization Notes Care Provider Vu yañez 04-14-2024 influenza virus vacc ine, unspecified formulation Liliana Waller MD Work Phone: [facility] 11-05-2023 zoster vaccine recombinant Luiz MORRISON [facility] 09-03-2023 tetanus toxoid, redu davion diphtheria toxoid, and acellular pertussis vaccine, adsorbed Luiz MORRISON [facility] 09-03-2023 zoster vaccine recombinant Luiz MORRISON [facility] 05-19-2023 influenza virus vacc ine, unspecified formulation Luiz MORRISON [facility] 05-19-2023 Influenza, High-dose Seasonal, Quadrivalent, Preservative Free Elyssa Adler MD Work Phone: [facility] 05-27-2022 Fluzone High-Dose Quadrivalent 0.7 ML Intramuscular Suspension Prefilled Syringe Terri Allsop Work Phone: [facility] 600 DO Work Phone: 05-27-2022 influenza virus vacc ine, unspecified formulation Luiz MORRISON [facility] 08-10-2021 Moderna COVID-19 Vac cine 100 MCG/0.5ML Intramuscular Suspension Terri Powellsop Work Phone: [facility] 08-08-2021 SARS-CoV-2 (COVID-19 ) mRNA-1273 vaccine Luiz MORRISON [facility] Comment on above: Result Comment: [facility] 08-03-2021 Fluzone High-Dose Quadrivalent 0.7 ML Intramuscular Suspension Prefilled Syringe Terri Powellsop Work Phone: [facility] 600 DO Work Phone: 08-03-2021 influenza virus vacc ine, unspecified formulation Luiz MORRISON [facility] 08-03-2021 pneumococcal polysaccharide vaccine, 23 valent Terri Allsop Work Phone: [facility] 600 DO Work Phone: 2021 Moderna COVID-19 Vac cine 100 MCG/0.5ML Intramuscular Suspension Terri Allsop Work Phone: [facility] 600 DO Work Phone: 12-05-2020 Moderna COVID-19 Vac cine 100 MCG/0.5ML Intramuscular Suspension Terri Allsop Work Phone: [facility] 600 DO Work Phone: 06-26-2020 influenza virus vacc ine, unspecified formulation Luiz Sumomi [facility] 06-26-2020 influenza, injectabl e, quadrivalent, preservative free Terri Allsop Work Phone: [facility] 600 DO Work Phone: 06-16-2019 influenza virus vacc ine, unspecified formulation Luiz Sumomi [facility] 06-16-2019 seasonal influenza, intradermal, preservative free Terri Allsop Work Phone: [facility] 600 DO Work Phone: 06-08-2019 influenza virus vacc ine, unspecified formulation Luiz Sumomi [facility] 06-08-2019 influenza, seasonal, injectable Terri Allsop Work Phone: [facility] 600 DO Work Phone: 06-07-2019 influenza virus vacc ine, unspecified formulation Luiz Sumomi [facility] 05-08-2018 influenza virus vacc ine, unspecified formulation Terri Allsop Work Phone: [facility] 600 DO Work Phone: 06-08-2016 influenza virus vacc ine, unspecified formulation Terri Allsop Work Phone: [facility] 600 DO Work Phone: 06-08-2016 pneumococcal polysaccharide vaccine, 23 valent Terri Allsop Work Phone: [facility] 600 DO Work Phone: 05-16-2015 influenza virus vacc ine, unspecified formulation Terri Allsop Work Phone: [facility] 600 DO Work Phone: 06-22-2013 influenza virus vacc ine, unspecified formulation Terri Allsop Work Phone: [facility] 600 DO Work Phone: 06-21-2013 pneumococcal polysaccharide vaccine, 23 valent Terri Allsop Work Phone: [facility] 600 DO Work Phone: 05-01-2012 influenza virus vacc ine, whole virus Terri Allsop Work Phone: [facility] 600 DO Work Phone: 05-01-2012 influenza, whole Luiz ANDREW ERS [facility] influenza virus vacc ine, unspecified formulation Terri Allsop Work Phone: [facility] 600 DO Work Phone: Comment on above: 2011 2006 Payers Date Payer Category Payer Self-pay [id number] 2021 Private Health Insurance [employer] [id number] 2018 Unknown 2014 Unknown [id number] 1955 Unknown [id number] [id number]. 356 1956 Unknown [id number] 2.16.840.1.285281.3.579.2. 356 1956 Unknown [id number] 2.16.840.1.867172.3.579.2. 1244 1956 Unknown [id number] 2.16.840.1.210247.3.579.2. 727 1956 Unknown [id number] 2.16.840.1.164376.3.579.2. 727 1956 Unknown [id number] 2.16.840.1.508457.3.579.2. 72 1956 Unknown [id number] 2.16.840.1.929873.3.579.2. 727 1956 Unknown [id number] 2.16.840.1.127381.3.579.2. 727 1956 Unknown [id number] 2.16.840.1.211556.3.579.2. 125 1956 Unknown [id number] 2.16.840.1.494698.3.579.2. 1258 1956 Unknown [id number] 2.16.840.1.342305.3.579.2. 1258 1956 Unknown [id number] 2.16.840.1.612714.3.579.2. 125 1956 Unknown [id number] 2.16.840.1.345385.3.579.2. 125 1956 Unknown [id number] 2.16.840.1.180468.3.579.2. 1259 1956 Unknown [id number] 2.16.840.1.299543.3.579.2. 9 1956 Unknown [id number] 2.16.840.1.033640.3.579.2. 9 1956 Unknown [id number] 2.16.840.1.555563.3.579.2. 9 1956 Unknown [id number] 2.16.840.1.562927.3.579.2. 9 1956 Unknown [id number] 2.16.840.1.505215.3.579.2. 1259 Unknown [id number] 2.16.840.1.954324.3.579.2. 531 Social History Date Type Detail Facility [facility] Tobacco smoking consumption unknown [facility] Start: 09-30-2023 End: 08-20-2024 [facility]: Start: 11-04-2021 End: 01-04-2023 Tobacco smoking status Never smoked tobacco (finding) [facility] Tobacco smoking status Ex-smoker (finding ) [facility] Tobacco smoking status Never [facility] Start: 09-30-2023 End: 08-20-2024 Sex Assigned At Male [facility] Start: 1955 Sex Assigned At Male [facility] Start: 04-12-2018 End: 01-04-2023 Tobacco use and exposure Smokeless tobacco non-user [facility] Start: 05-21-2022 End: 08-20-2024 Alcohol intake Lifetime non-drinker (finding) [facility] Start: 08-27-2019 History SDOH Alcohol Frequency 1 [facility] Start: 1955 [facility] Start: 05-11-2022 End: 09-30-2023 Exposure to SARS-CoV-2 (event) Not sure [facility] Start: 01-03-2023 Alcohol Comment caffeine: 2-3 cups per day [facility] Goals Date Patient Goal Desired Activity /State Functional Status Date Assessment Result Facility 06-20-2024 Functional Status N/A [facility] 06-15-2023 Functional Status N/A [facility] 11-03-2022 Functional Status N/A [facility] 06-24-2022 Functional Status N/A [facility] 05-12-2022 Functional Status N/A [facility] 04-28-2022 Functional status Patient at Baseline [facility] Work Phone: 04-01-2022 Functional Status N/A [facility] [place] 03-17-2022 Functional Status N/A [facility] Mental Status Date Assessment Result Facility 04-28-2022 Cognitive function Cognitive Sta tus Patient at Baseline [facility] Work Phone: Clinical Notes 08-15-2020 to 08-20-2024 Adam Jack DPM FACFAS - 08/20/2024 8:00 AM Jackson Waller MD - 07/25/2024 8:40 AM ESTTelephone Encounter - Yudith Daniel NP - 06/13/2024 10:59 AM ESTPatient Instructions Note Date & Type Note Facility 08-20-2024 History of Present illness Narrative Images from the original note were not included. patient: Phu Lopez : 1955 PCP: Liliana Waller MD SUBJECTIVE This is a 69 y.o. male that presents today with a chief complaint of painful elongated nails digits 1 through 10. They cause marked limitation in ambulation due to pain and pressure from shoe gear. Patient has been complaining of venous disease bilaterally right greater than left. He has attempted elevation compression stockings he is concerned as he does not want to develop cellulitis or ulcerations. He is interested in knowing the root cause of his problem. [facility] has [facility] doing very well. Had a vein procedure on the right less swelling noted Allergies: Allergies Allergen Reactions Clarithromycin Unknown Past [...] Take 1 tablet (10 mg) by mouth Daily, Disp: 90 tablet, Rfl: 3 apixaban (Eliquis) 5 MG tablet, Take 1 [...] , Rfl: doxazosin (Cardura) 4 MG tablet, Take 1 tablet (4 mg) by mouth at bedtime, Disp: 90 tablet, Rfl: 3 finasteride (Proscar) 5 MG tablet, Take 5 [...] Take 1 tablet (100 mg) by mouth Daily, Disp: 90 tablet, Rfl: 3 lovastatin (Mevacor) 20 MG tablet, Take 1.5 tablets (30 mg) by mouth in the morning., Disp: 45 tablet, Rfl: 11 montelukast (Singulair) 10 MG tablet, Take 1 tablet (10 mg) by mouth at bedtime, Disp: 90 tablet, Rfl: 3 niacin (Niaspan) 500 MG ER tablet, Take [...] 30 DAYS, Disp: 210 tablet, Rfl: 11 rivaroxaban (Xarelto) 20 MG tablet, Take 1 tablet (20 mg) by mouth in the evening. Take with meals Take with food., Disp: 90 tablet, Rfl: 3 Review of systems: Constitutional: Denies fever, chills, [...] clean and dry. No ulcerations were noted. Less swelling noted to the right leg still has venous disease of the left Nails 1 through 10 were thickened elongated yellow and crumbly with subungual debris. They were painful to palpation [id number] on the right [address]63 on the left. VASC: DP /PT were nonpalpable bilateral. Capillary refill time < 3 seconds Digits 1-5 bilateral venous disease noted bilaterally right greater than left no cellulitis noted +1 pitting edema on the right NEURO: [place] Osiris 5.07 monofilament was intact B/L. Vibratory sensation was intact B/L Musculoskeletal: Muscle strength was +5 over 5 all intrinsic and extrinsic muscles tested. ASSESSMENT 1. Onychomycosis 2. Pain in left toe(s) 3. Pain in right toe(s) 4. Venous insufficiency (chronic) (peripheral) PLAN I educated the patient on venous stasis disease. I educated the patient on the anatomy of vein in how compression and elevation can help combat the swelling in his lower extremities. Patient's continue with compression continue with visits to the [facility] with Dr. Gurrola. He has no cellulitis noted hopefully he will be able to be removed from the blood thinners according to Dr. Gurrola follow up with me 2 months ROSA Redmond documented in this encounter [facility] 07-25-2024 History of Present illness Narrative Images from the original note were not included. Subjective Patient ID: Phu Loepz is a 69 y.o. male who presents [...] advised to call when he needs more residential current use of anticoagulant Essential hypertension (CMS/HCC) Stable, continue to monitor. No change in regimen. PVD (peripheral vascular disease) (CMS/HCC) - as above BMI 40.0-44.9, adult (CMS/HCC) Morbid obesity (CMS/HCC) - continue to monitor weight documented in this encounter [facility] 06-20-2024 Hospital Discharge instructions Patient Education 06/20/2024 [...] urethra. Follow these instructions at home: Take qflf-pgn-ywojcqm and prescription medicines only as told by [...] provider. Document Revised: 02/10/2022 Document Reviewed: 02/10/2022 GetGoing Patient Education 2023 [employer]. Follow Up Care 06/15/2023 14:27:36 With:TAMIKO SAEZ, Luiz Jackson, URL Address: [facility] [address], [place] [address]- When: Unknown [facility] 06-20-2024 Evaluation + Plan note Diagnostic Tests PendingPSA Total 06/20/24 [facility] 06-20-2024 Note Patient Education Urology [...] Follow these instructions at home: ??? Take ugex-nov-uhthjib and prescription medicines only as told by [...] do not get (more content not included)... [facility] 06-13-2024 Telephone encounter Note HR OOO, Rx sent. [facility] 06-13-2024 Miscellaneous Notes HR OOO, Rx sent. documented in this encounter [facility] 06-04-2024 History of Present illness Narrative Images [...] subungual debris. They were painful to palpation [id number] on the right 93312 on the left. VASC: DP /PT were nonpalpable bilateral. Capillary refill time < 3 seconds Digits 1-5 bilateral NEURO: [place] Osiris 5.07 monofilament was intact B/L. Vibratory [...] 10. ROSA Redmond documented in this encounter [facility] 06-01-2024 Note Date of Procedure 06/01/2024. 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 Interpretation Right Eye Findings include Epiretinal [...] any questions please contact our office at [phone]. After office hours or on the weekend, please call Dr. Decker on his cell phone at [phone]. documented in this encounter [facility] 06-01-2024 Note HNO ID: [id number] Author: JOSSELIN DECKER MD Service: ? Author [...] agree with all of its relevant components. [facility] 06-01-2024 History of Present illness [...] its relevant components. documented in this encounter [facility] 05-10-2024 History of Present illness Narrative [...] in regimen. Continue to follow w/ vascular residential current use of anticoagulant Cardiomyopathy, unspecified type (CMS/HCC) Stable, continue to monitor. No change in regimen. PVD (peripheral vascular disease) (CMS/HCC) Stable, continue to monitor. No change in regimen. Continue to follow w/ vascular Essential hypertension (CMS/HCC) Stable, continue to monitor. No change in regimen. BMI 40.0-44.9, adult (CMS/HCC) Morbid obesity (CMS/HCC) - continue to monitor weight documented in this encounter [facility] 04-13-2024 History of Present illness Narrative Images [...] spontaneously. Earlier this year, he drove to [place] and back, but has not taken any [...] any other medications at this time. His screen tender referred him to Dr. Gurrola, a vascular [...] Vaccine (1) 04/08/2024 documented in this encounter [facility] 09-30-2023 History of Present illness Narrative Subjective [...] been very compliant Delores Ac MD, [facility] Review of Systems All other systems reviewed [...] Attestation By signing my name below, I [email or web address] , Scribe attest that this documentation has been prepared under the direction and in the presence of Delores cA MD. Provider Attestation - Scribe documentation All medical record entries made by the Scribe were at my direction and personally dictated by me. I have reviewed the chart and agree that the record accurately reflects my personal performance of the history, physical exam, discussion and plan. documented in this encounter [facility] Work Phone: 09-30-2023 Instructions Kitty Estes [...] Increase physical activity. documented in this encounter [facility] Work Phone: 06-15-2023 Hospital Discharge instructions [...] urethra. Follow these instructions at home: Take zzok-giz-kqrwnim and prescription medicines only as told by [...] provider. Document Revised: 02/10/2022 Document Reviewed: 02/10/2022 GetGoing Patient Education 2022 [employer]. Follow Up Care 11/03/2022 16:39:32 With:TAMIKO SAEZ, Luiz Jackson, URL Address: [facility] [address], [place] [address]- When: Unknown [facility] 02-21-2023 Evaluation note Encounter Date Diagnosis Assessment Notes Feb, Obstructive sleep apnea (ICD-10 - G47.33) Patient was encouraged to continue his CPAP regularly, work on losing weight, monitor his blood pressure regularly and keep a record of his readings to review with his oncology social worker, asked him to report any difficulties or issues with his treatment, DOS otherwise we will see him for follow-up in 1 year Feb, Hypertension, unspecified type (ICD-10 - I10) [facility] 03-29-2023 Hospital Discharge instructions Patient Education [...] urethra. Follow these instructions at home: Take twca-eyc-vugyivo and prescription medicines only as told by [...] 07/25/2006 Document Revised: 06/19/2019 Document Reviewed: 08/29/2017 GetGoing Patient Education 2019 [employer]. Follow Up Care 07/29/2022 09:30:30 With:TAMIKO SAEZ, Luiz Jackson, URL Address: [facility] [address], [place] [address]- When: Unknown [facility] 11-17-2022 Hospital Discharge instructions Patient Education 06/24/2022 [...] a slower pace than normal. ?Eat soft, rqkf-pt-ywqdlv foods. Take jymd-wgp-hanhlcz or prescription medicines only as told by [...] 03/08/2005 Document Revised: 05/17/2018 Document Reviewed: 10/05/2016 GetGoing Patient Education 2020 [employer]. Follow Up Care 02/15/2022 10:08:03 With:William Brush Address:Unknown When: Unknown Comments:will call with results [facility]10-14-20[facility] Instructions* Patient Instructions* Cici Merida, OD - [...] delay. Recommended yearly exams. [facility] of Present illness Narrative* Cici Genaro [place], OD - 05/21/2022 3:49 PM EDT [...] and examined this patient. [facility] Discharge instructions Patient Education 05/12/2022 [...] Follow these instructions at home: Medicines Take hjva-irv-lprnlcv and prescription medicines only as told by [...] prevent or treat constipation, such as: ?Take jmei-gxm-wnzejyw or prescription medicines. ?Eat foods that are [...] 07/25/2006 Document Revised: 11/14/2019 Document Reviewed: 04/25/2019 GetGoing Patient Education 2020 [employer]. Follow Up Care 04/30/2022 08:49:28 With:TAMIKO SAEZ, Luiz Jackson, URL Address: [facility] [address] [place] [address]- [phone] When:08/12/2022 [facility] 08-10-2022 Hospital Discharge instructions Patient Education 03/17/2022 [...] including vitamins, herbs, eye drops, creams, and bauj-ybe-rzbjxjj medicines. Any problems you or family members [...] provider tells you to take them. Taking tthi-eqj-vkkkrqa medicines, vitamins, herbs, and supplements. Eating and [...] 07/25/2006 Document Revised: 11/14/2019 Document Reviewed: 04/25/2019 GetGoing Patient Education 2019 [employer]. Follow Up Care 02/12/2022 10:45:59 With:TAMIKO SAEZ, Luiz Jackson, URL Address: [facility] [address] , [place] [address]- [phone] When: Unknown Comments:schedule TURP [facility] 07-26-2022 Hospital Discharge instructions [...] for your post-operative appointment in 1-2 weeks [phone] or [phone] Follow Up Care 02/12/2022 10:36:38 With:Luiz MORRISON Address: [facility] [address] [place] [address]- Business (1) When: Unknown Comments:Appointment has already been scheduled [facility]07-18-2022 Evaluation note* Encounter Date Diagnosis Assessment Notes [...] G47.61) Feb, Morbid obesity (ICD-10 - E66.01) [facility] Other 05-16-2022 Hospital Discharge instructions Patient Education [...] Follow these instructions at home: Medicines Take jmyt-vng-pytbdgr and prescription medicines only as told by [...] or the blood stops without treatment. Take eqxa-qqq-unaentt and prescription medicines only as told by your health care provider. Drink enough fluid to keep your urine clear or pale yellow. This information is not intended to replace advice given to you by your health care provider. Make sure you discuss any questions you have with your health care provider. Document Released: 07/25/2006 Document Revised: 12/19/2019 Document Reviewed: 08/27/2017 GetGoing Patient Education 2019 [employer]. Follow Up Care 12/01/2021 08:55:58 With:TAMIKO SAEZ, Luiz Jackson, URL Address: [facility] [address], [place] [address]- When: Unknown Comments:Huyen WILKES. [facility] [place] 05-06-2022 Hospital Discharge instructions Patient Education 12/11/2021 [...] food choices, such as grocery stores and [employer]. What are the signs or symptoms? [...] and how much exercise you get. Take tnor-qcn-htzdofa and prescription medicines only as told by [...] 09/01/2005 Document Revised: 03/29/2019 Document Reviewed: 03/29/2019 GetGoing Patient Education 2019 [employer]. [facility] [place] 04-26-2022 Evaluation + Plan noteExtracted from: Title:Urology [...] list: All Problems asthma / SNOMED CT 144977058 / Confirmed Hypocalcemia / SNOMED CT 5339730 / Confirmed Hypokalemia / SNOMED CT 00996092 / Confirmed Obesity / SNOMED CT 4340958334 / Confirmed Chronic heart failure / SNOMED CT 26761046 / Confirmed Hyperlipidemia / SNOMED CT 43448711 / Confirmed Hyperglycemia / SNOMED CT 036925420 / Confirmed Hypertension / SNOMED CT 59670748 / Confirmed Male hypogonadism / SNOMED CT 53307297 / Confirmed Onychomycosis / SNOMED CT 3621225586 / Confirmed Hypothyroid / SNOMED CT 21774180 / Confirmed Depression / SNOMED CT 62730643 / Confirmed Heart disease / SNOMED CT 44460509 / Confirmed Histories Past Medical History: Active asthma (105181202): Onset in 1970 at 15 years. Resolved Depression (300.4): Onset on 12/10/2009 at 54 years. Resolved. Comments: 12/10/2009 EDT 10:06 EDT - Family History: Cardiac arrhythmia Father () Malignant lymphoma Mother () Comments: 12/07/2009 0:16 EDT - Merlyn Sampson RN parathyroid cancer Procedure history: Colonoscopy ([id number]) on 10/08/2011 at 56 Years. Colonoscopy (044398320) on 08/10/2011 at 56 Years. Tonsillectomy (847075731). Social History Social & Psychosocial Habits Alcohol [...] Appointments Appointment Date:12/03/2021 08:15:00 AM Scheduled Provider: Location:[facility] Appointment Type:Urology CALL PAT Appointment Date:12/08/2021 08:00:00 AM Scheduled Provider: Location:[facility] Appointment Type:Urology FT Appointment Date:12/11/2021 08:20:00 AM Scheduled Provider:William Brush MD Location:[facility] Appointment Type:[facility] Appointment Date:12/22/2021 08:00:00 AM Scheduled Provider:Luiz MORRISON MD Location:[facility] Appointment Type:URO Office Visit Diagnostic Tests Pending * UroVysion Fish and Urine Cyto ([facility]) 12/01/21 [facility]04-26-2022 Hospital Discharge instructions Patient Education 12/01/2021 08:51:54 [...] [facility] [address], [place] [address]- Business (1) When: Unknown Comments:Office will call to schedule follow up [facility]03-30-2022 Evaluation + Plan note Future Scheduled Tests Radiology* CT Urogram 11/04/21 [facility] [place] [id number] Hospital Discharge instructions Patient Education 11/04/2021 11:30:36 [...] Follow these instructions at home: Medicines Take oyjq-zdf-gkvifbo and prescription medicines only as told by [...] or the blood stops without treatment. Take axaa-wxr-kuhvfpf and prescription medicines only as told by your health care provider. Drink enough fluid to keep your urine clear or pale yellow. This information is not intended to replace advice given to you by your health care provider. Make sure you discuss any questions you have with your health care provider. Document Released: 07/25/2006 Document Revised: 12/19/2019 Document Reviewed: 08/27/2017 GetGoing Patient Education 2020 [employer]. Follow Up Care 10/06/2021 15:23:45 With:TAMIKO SAEZLuiz, URL Address: [facility] [address] [place] [address] [phone] When: Unknown [facility] 01-08-2021 History of Past illness Narrative* Problem Noted Date Resolved Date Epiretinal membrane (ERM) of right eye 1 09/04/2021 documented as of this encounter (statuses as of 05/21/2022) [facility] Future Appointments Appointment Date:12/01/2021 08:00:00 AM Scheduled Provider: Location:[facility] Appointment Type:Urology FT Appointment Date:12/11/2021 08:20:00 AM Scheduled Provider:William Brush MD Location:[facility] [address]ointment Type[address] note Future Appointments Appointment Date:12/11/2021 08:20:00 AM Scheduled Provider:William Brush MD Location:[facility] Appointment Type:[place] [address] Appointment Date:12/22/2021 08:00:00 AM Scheduled Provider:Luiz [facility]ORRISON MD [facility] Future App[facility]ments Appointment Date:12/11/2021 08:20:00 AM Scheduled Provider:William Brush MD Location:[facility] Appointment Type:[place] [address] Appointment Date:12/22/2021 08:00:00 AM Scheduled Provider:Luiz MORRISON MD Location:[facility] Appointment Type:URO Office Visit Diagnostic Tests Pending * Testosterone F&T [facility]10/[facility] Future App[facility]ments Appointment Date:12/22/2021 08:00:00 AM Scheduled Provider:Luiz MORRISON MD Location:[facility] Appointment Type:URO Office Visit Appointment Date:02/19/2022 12:30:00 PM Scheduled Provider: Location:[facility] Appointment Type:Surgery [facility] [place] Evaluation + Plan note Future Appointments Appointment Date:02/19/2022 12:30:00 PM Scheduled Provider: Location:[facility] Appointment Type:Surgery FT Diagnostic Tests Pending * PSA Total 12/22/21 [facility] Evaluation + Plan note Future Appointments Appointment Date:02/19/2022 12:30:00 PM Scheduled Provider: Location:[facility] Future Appointments Appointment Date:03/02/2022 09:45:00 AM Scheduled Provider: Location:[facility] Appointment Type:Urology FT Appointment Date:03/17/2022 02:00:00 PM Scheduled Provider:Luiz MORRISON MD Location:[facility] Appointment Type:URO Office Visit Appointment Date:06/25/2022 12:30:00 PM Scheduled Provider: Location:[facility] Future Appointments Appointment Date:03/17/2022 02:00:00 PM Scheduled Provider:Luiz MORRISON MD Location:[facility] Appointment Type:URO Office Visit Appointment Date:06/25/2022 12:30:00 PM Scheduled Provider: Location:[facility] Appointment Type:Surgery FT Diagnostic Tests Pending * Prostate Histology ([facility]) [facility]/02/22 [facility] Future App[facility]ments Appointment Date:06/25/2022 12:30:00 PM Scheduled Provider: Location:[facility] Appointment Type:Surgery FT [facility] Evaluation + Plan note Future Appointments Appointment Date:04/06/2022 02:30:00 PM Scheduled Provider:Milo Gonzales MD Location:[facility] Appointment Type:Pain Management - New (FT) Appointment Date:06/25/2022 12:30:00 PM Scheduled Provider: Location:[facility] Appointment Type:Surgery FT [facility] [place] Evaluation + Plan note Future Appointments Appointment Date:05/12/2022 08:00:00 AM Scheduled Provider:Luiz MORRISON MD Location:[facility] Appointment Type:URO Office Visit Appointment Date:06/25/2022 12:30:00 PM Scheduled Provider: Location:[facility] Appointment Type:Surgery FT [facility] Evaluation + Plan note Future Appointments Appointment Date:06/24/2022 12:30:00 PM Scheduled Provider: Location:[facility] Appointment Type:Surgery FT Appointment Date:08/11/2022 10:30:00 AM Scheduled Provider:Luiz MORRISON MD [facility] Office [facility] Evaluation + Plan note Future Appointments Appointment Date:08/11/2022 10:30:00 AM Scheduled Provider:Luiz MORRISON MD Location:[facility] Appointment Type:[facility] Future Appointments Appointment Date:11/03/2022 03:00:00 PM Scheduled Provider:Luiz MORRISON MD Location:[facility] Appointment Type:[facility]O [facility] Future Appointments Appointment Date:06/15/2023 01:15:00 PM Scheduled Provider:Luiz MORRISON MD Location:[facility] Appointment Type:URO Office Visit Diagnostic Tests Pending * PSA Total 11/03/[address] [facility] Evaluation + Plan note Future Appointments Appointment Date:06/15/2023 01:15:00 PM Scheduled Provider:Luiz MORRISON MD Location:[facility] Appointment Type:URO Office Visit Diagnostic Tests Pending * PSA Total 04/30/23 [facility] Future App[facility]ments Appointment Date:06/20/2024 01:00:00 PM Scheduled Provider:Luiz MORRISON MD Location:[facility] Appointment Type:URO Office Visit Diagnostic Tests Pending * PSA Total 06/15/23 [facility] Evaluation + Plan note Future Appointments Appointment Date:06/20/2024 01:00:00 PM Scheduled Provider:Luiz MORRISON MD Location:[facility] Appointment Type:URO [facility] assessment information available [facility] Work Phone: Evaluation note* Diagnosis Epiretinal membrane (ERM) of both eyes- Primary Floppy eyelid syndrome of both eyes Combined forms of age-related cataract of both eyes Other and combined forms of senile cataract Posterior vitreous detachment of both eyes Vitreous degeneration Vitreous floaters of both eyes [facility] Diagnosis Essential hypertension Unspecified essential hypertension Non-ischemic cardiomyopathy (CMS/HCC) Other primary cardiomyopathies Hyperlipidemia, unspecified hyperlipidemia type Obstructive sleep apnea, adult Morbid obesity with BMI of 40.0-44.9, adult ([facility]) documented in this encounter [facility] Work Phone: Evaluation note* Diagnosis Onset Date Resolution Status Hypertension acute Sleep apnea with use of cont inuous positive airway pressure (CPAP) acute Hypertension acute Sleep apnea with use of cont inuous positive airway pressure (CPAP) acute [facility] Work Phone: Evalupbcuf note* Diagnosis Acute deep vein thrombosis (DVT) of distal vein of right lower extremity (CMS/HCC)- Primary residential current use of anticoagulant Cardiomyopathy, unspecified type (CMS/HCC) PVD (peripheral vascular disease) (CMS/HCC) Unspecified peripheral vascular disease Essential hypertension (CMS/HCC) Unspecified essential hypertension BMI 40.0-44.9, adult (CMS/HCC) Morbid obesity (CMS/HCC) Morbid obesity [facility] Epiretinal membrane (ERM) of both eyes- Primary Floppy eyelid syndrome of both eyes Combined form of age-related cataract, both eyes Benign prostatic hyperplasia without lower urinary tract symptoms Anxiety disorder, unspecified type Essential hypertension Unspecified essential hypertension Mixed hyperlipidemia Obstructive sleep apnea syndrome Obstructive sleep apnea (adult) (pediatric) documented [facility]* Diagnosis Onychomycosis- Primary Dermatophytosis of nail Pain in left toe(s) Pain in right toe(s) [facility] Diagnosis Primary hypertension (CMS/HCC) Unspecified essential hypertension Seasonal allergies Allergic rhinitis, cause unspecified [facility] Diagnosis Acute deep vein thrombosis (DVT) of distal vein of right lower extremity (CMS/HCC)- Primary residential current use of anticoagulant Essential hypertension (CMS/HCC) Unspecified essential hypertension PVD (peripheral vascular disease) (CMS/HCC) Unspecified peripheral vascular disease BMI 40.0-44.9, adult (CMS/HCC) Morbid obesity (CMS/HCC) Morbid obesity [facility] Diagnosis Acute deep vein thrombosis (DVT) of distal vein of right lower extremity (CMS/HCC)- Primary Cardiomyopathy, unspecified type (CMS/HCC) PVD (peripheral vascular disease) (CMS/HCC) Unspecified peripheral vascular disease [facility] Diagnosis Primary hypertension (CMS/HCC) Unspecified essential hypertension Benign prostatic hyperplasia without lower urinary tract symptoms Seasonal allergies Allergic rhinitis, cause unspecified [facility] Diagnosis Venous insufficiency (chronic) (peripheral)- Primary Unspecified venous (peripheral) insufficiency Onychomycosis Dermatophytosis of nail Pain in left toe(s) Pain in right toe(s) [facility] N[facility]ative - Reported* Type Description Date Medical History CARDIOMYOPATHY Medical History HYPERTENSION Medical History HYPOKALEMIA Medical History HYPERLIPIDEMIA Medical History FATTY LIVER Medical History ASTHMA Medical History SLEEP APNEA Medical History DEPRESSION Medical History RESTLESS LEG SYNDROME Surgical History HEMMRHOIDECTOMY 1990 Surgical History ANGIOGRAM [facility] Other Hospital course Narrative No data available for this section [facility] Hospital Discharge instructions No data available for this section [facility] No data available for this section [facility] Consultation (Routine) - Authorized Specialty Diagnoses / Procedures Referred By Contjaylene t Referred To Contact Cardiology Diagnoses Essential hypertension Non-ischemic cardiomyopathy (CMS/HCC) Procedures Follow Up In Cardiology Delores Ac MD [address] [facility] [address] [place] [address] Delores Ac MD [address] [facility] [address], [facility] [address] [place] [address] Referral ID Status Reason Start Date Expiration Date V isits Requested Visits Authorized [id number] Authorized 09/30/2023 09/29/2024 1 1 [facility] Work Phone: Summary Purpose Family History [...] CPAP machine * Delores Ac MD, [facility] PHU LOPEZ is being seen for an annual follow-up of.* PHU LOPEZ is being seen for an annual follow-up of. * Patient is in the office for follow-up for the problems noted below. 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 He reports no symptoms of dyspnea [...] very compliant * Delores Ac MD, [facility] * PHU LOPEZ is being seen for [...] DIRECTED, Starting on Tue05/21/22 at 1530, Until 10/15/22 at 0329, Administer for dilation Given 05/21/2022 3:30 PM EDT 1 Drop Additional Source Comments (unrecognized sect ion and content) No Status Records FoundNo Status Records FoundNo Status Records FoundNo Status Records FoundNo Status Records FoundNo Status Records FoundNo Status Records FoundNo Status Records FoundNo Status Records FoundNo Status Records Found INFORMATION SOURCE (unrecogn ized section and content) DATE CREATED AUTHOR 05/19/2018 [facility] DATE CREATED AUTHOR AUTHOR'S ORGANIZ ATION 03/14/2021 [facility] DATE CREATED AUTHOR AUTHOR'S ORGANIZ ATION 09/29/2022 [facility] DATE CREATED AUTHOR AUTHOR'S ORGANIZ ATION 09/29/2022 [facility] DATE CREATED AUTHOR AUTHOR'S ORGANIZ ATION 04/17/2024 [facility] DATE CREATED AUTHOR AUTHOR'S ORGANIZ ATION 06/03/2024 [facility] DATE CREATED AUTHOR AUTHOR'S ORGANIZ ATION 06/22/2024 [facility] DATE CREATED AUTHOR AUTHOR'S ORGANIZ ATION 07/27/2024 [facility] DATE CREATED AUTHOR AUTHOR'S ORGANIZ ATION 08/18/2024 [facility] DATE CREATED AUTHOR AUTHOR'S ORGANIZ ATION 08/23/2024 [facility] d[facility] Specialists EPIC <item> Privacy [...] Active Burak Rangel MD Attending Provider Active Aviation Operations Specialist Relationship Specialty Start Date End Date Terri Santos DO [address] [place] [address] PCP - General Family Medicine 04/11/18 [employer] Specialist Relationship Specialty Start Date End Date Terri Santos DO [place] [address] [place] [address] PCP - General 09/11/20 Team Status: Inactive [...] May 07, 2024 End: May 07, 2024 Aviation Operations Specialist Relationship Specialty Start Date End Date Terri Santos DO PCP - Medical [place] [facility] 08/08/09 08/07/99 Liliana Waller MD [address] [place] [address] PCP - General Family Medicine 03/26/24 [employer] Operations Specialist Relationship Specialty Start Date End Date Terri Santos DO PCP - Medical [place] [facility] 08/08/09 08/07/99 Liliana Waller MD [address] [place] [address] PCP - General Family Medicine 03/26/24 Aviation Operations Specialist Relationship Specialty Start Date End Date Terri Santos DO [address] [place] [address] PCP - General Family Medicine 04/11/18 Jordyn Zhu OD [address] [facility] [place] [address] Referring Optometry 05/27/23 [employer] Operations Specialist Relationship Specialty Start Date End Date Terri Santos DO PCP - Medical [place] [facility] 08/08/09 08/07/99 Liliana Waller MD [address] [place] [address] PCP - General Family Medicine 03/26/24 Aviation Operations Specialist Relationship Specialty Start Date End Date Terri Santos DO PCP - Medical [place] [facility] 08/08/09 08/07/99 Liliana Waller MD [address] [place] [address] PCP - General Family Medicine 03/26/24 [employer] Operations Specialist Relationship Specialty Start Date End Date Liliana Waller MD [address] [place] [address] PCP - General Family Medicine 03/26/24 Liliana Waller MD [address] [place] [address] PCP - Medical [place] [facility] 08/08/09 08/07/99 [employer] Specialist Relationship Specialty Start Date End Date Liliana Waller MD [address] [place] [address] PCP - General Family Medicine 03/26/24 Liliana Waller MD [address] [place] [address] PCP - Medical [place] [facility] 08/08/09 08/07/99 [employer] Operations Specialist Relationship Specialty Start Date End Date Terri Santos DO PCP - Medical [place] [facility] 08/08/09 08/07/99 Liliana Waller MD [address] [place] [address] PCP - General Family Medicine 03/26/24 Aviation Operations Specialist Relationship Specialty Start Date End Date Terri Santos DO PCP - Medical [place] [facility] 08/08/09 08/07/99 Liliana Waller MD [address] [place] [address] PCP - General Family Medicine 03/26/24 Aviation Operations Specialist Relationship Specialty Start Date End Date Liliana Waller MD [address] [place] [address] PCP - General Family Medicine 03/26/24 Liliana Waller MD [address] [place] [address] PCP - Medical [place] [employer] 08/08/09 08/07/99 [employer] Operations Specialist Relationship Specialty Start Date End Date Liliana Waller MD [address] [place] [address] PCP - General Family Medicine 03/26/24 Liliana Waller MD [address] [place] [address] PCP - Medical [place] [facility] 08/08/09 08/07/99 Aviation Operations Specialist Relationship Specialty Start Date End Date Liliana Waller MD [address] [place] [address] PCP - General Family Medicine 03/26/24 Liliana Waller MD [address] [place] [address] PCP - Medical [place] [employer] 08/08/09 08/07/99 Goals (unrecognized section and content) Goals may [...] Med Refill 06/13/2024 Reason Comments Med review Reason Onset Date Comments Med Refill 08/13/2024 Source Comments (unrecognize d section and content) In the event this informatio n is protected by the Federal Confidentiality of Alcohol and Drug Abuse Patient Records regulations: The Federal rules restrict any use of the information to criminally investigate or prosecute any alcohol or drug abuse patient.[facility] the event this information is protected by the Federal Confidentiality of Alcohol and Drug Abuse Patient Records regulations: The Federal rules restrict any use of the information to criminally investigate or prosecute any alcohol or drug abuse patient.[facility] FOR RECORDS PERTAINING TO PATIENTS WHO [...] BE BASED ON THE PRIMARY CLINICAL RECORDS. [facility] [employer] [facility] provides no warranty or guarantee of the accuracy or completeness of information in this document.
[2024-08-30 08:51] VITALS: BMI 44.8
--- NOTE | 2024-08-30 08:51 | VEINCLINIC_ITS ---
Vital Signs 08/30/24 08:51 Height 6 ft Weight 150 kg BMI 44.8 Varicose Veins Patient in today for follow up ultrasound of bilateral lower extremities following treatment of Varithena/microfoam completed on 08/24/24. Guillermo Smith MD personally performed the services described in this documentation, as scribed by Jane Farris RDMS in my presence and it is both accurate and complete. Jane Smith RDMS, am scribing for, and in the presence of, Dr. Guillermo Gurrola and in the presence of the patient. thigh: bilateral, knee: bilateral, calf: bilateral, ankle: bilateral and delaney: bilateral aching and dull 3 2 years Worsened in recent months: Yes walking elevating extremities and compression stockings Reports heaviness, restless legs, limb pain, edema and leg edema History of lower extremity trauma: No Superficial thrombophlebitis: No Family history of varicose veins: no Has patient had previous lower extremity venous surgery: No Patient has previously received the following treatment(s) for lower extremity varicose veins: Reports none Does patient have a history of : not applicable Does patient intend to have future pregnancies: not applicable Has patient had lower extremity venous scan with relux testing: Yes Support hose used: Yes Problems walking or doing physical activity: Yes How does it affect you: unable to walk long distances Do you walk much: No Do you stand much: Yes Medication compliance: good Review of Systems ROS Narrative Guillermo Smith MD personally performed the services described in this documentation, as scribed by Jane Farris RDMS in my presence and it is both accurate and complete. Jane Smith RDMS, am scribing for, and in the presence of, Dr. Guillermo Gurrola and in the presence of the patient. Status of ROS 10 or more systems reviewed and unremark able except as noted in history and below Cardiovascular Reports: edema and swelling of feet/ankles Musculoskeletal Reports: extremity pain, extremity swelling, joint pain, joint swelling and muscle cramps Integumentary/Breast Reports: rash, itching and redness [facility] Medical History (Updated 08/30/24 @ 08:52 by Jane Farris) Phlebitis and thrombophlebitis of superficial vessels of lower extremities, bilateral ?I80.03 - Phlebitis and thrombophlebitis of superficial vessels of lower extremities, bilateral (ICD-10) Phlebitis and thrombophlebitis of superficial vessels of left lower extremity ?I80.02 - Phlebitis and thrombophlebitis of superficial vessels of left lower extremity (ICD-10) Phlebitis and thrombophlebitis of superficial vessels of right lower extremity ?I80.01 - Phlebitis and thrombophlebitis of superficial vessels of right lower extremity (ICD-10) Hemorrhoids, internal ?K64.8 - Other hemorrhoids (ICD-10) Pain due to varicose veins of both lower extremities ?I83.813 - Varicose veins of bilateral lower extremities with pain (ICD-10) Tinea pedis ?B35.3 - Tinea pedis (ICD-10) Sleep apnea ?G47.30 - Sleep apnea, unspecified (ICD-10) Restless leg ?G25.81 - Restless legs syndrome (ICD-10) Onychomycosis ?B35.1 - Tinea unguium (ICD-10) Obesity ?E66.9 - Obesity, unspecified (ICD-10) Left ventricular failure ?I50.1 - Left ventricular failure, unspecified (ICD-10) Hypokalemia ?E87.6 - Hypokalemia (ICD-10) Hyperglycemia ?R73.9 - Hyperglycemia, unspecified (ICD-10) Hyperlipemia ?E78.5 - Hyperlipidemia, unspecified (ICD-10) Accelerated essential hypertension ?I10 - Essential (primary) hypertension (ICD-10) Elevated PSA ?R97.20 - Elevated prostate specific antigen [PSA] (ICD-10) Cardiomyopathy ?I42.9 - Cardiomyopathy, unspecified (ICD-10) Anxiety ?F41.9 - Anxiety disorder, unspecified (ICD-10) Surgical History (Updated 07/27/24 @ 11:22 by Gerald Lopez) S/P sclerotherapy of varicose veins ?Z98.890 - Other specified postprocedural states (ICD-10) ?Z86.79 - Personal history of other diseases of the circulatory system (ICD- 10) Status post laser ablation of incompetent vein ?Z98.890 - Other specified postprocedural states (ICD-10) Status post laser ablation of incompetent vein ?Z98.890 - Other specified postprocedural states (ICD-10) Status post laser ablation of incompetent vein ?Z98.890 - Other specified postprocedural states (ICD-10) Status post laser ablation of incompetent vein ?Z98.890 - Other specified postprocedural states (ICD-10) S/P TURP ?Z90.79 - Acquired absence of other genital organ(s) (ICD-10) Family History (Updated 04/06/24 @ 10:04 by Destini Carlin, RN) Other Family history of CHF (congestive heart failure) Family history of cancer Family history of hypertension Family history of myocardial infarction Social History (Updated 04/06/24 @ 10:05 by Destini Carlin, RN) Within the past year, how often did you have a drink containing alcohol: never Score interpretation: A score less than 4 is consistent with normal alcohol consumption. Smoking status: Never smoker Non-prescribed substance use: denies use Meds Home Medications and Allergies Home Medications ?Medication ?Instructions ?Recorded ?Confirmed ?Type amiloride 5 mg tablet 5 mg PO DAILY 04/06/24 04/06/24 History amlodipine 10 mg tablet 10 mg PO DAILY 04/06/24 04/06/24 History aspirin 325 mg tablet 325 mg PO DAILY 04/06/24 04/06/24 History carvedilol 25 mg tablet (Coreg) 25 mg PO BID 04/06/24 04/06/24 History doxazosin 4 mg tablet (Cardura) 4 mg PO QPM 04/06/24 04/06/24 History finasteride 5 mg tablet 5 mg PO DAILY 04/06/24 04/06/24 History hydralazine .Route DAILY 04/06/24 History hydrochlorothiazide 25 mg tablet 25 mg PO DAILY 04/06/24 04/06/24 History losartan 100 mg tablet 100 mg PO DAILY 04/06/24 04/06/24 History lovastatin 30 mg PO QAM 04/06/24 04/06/24 History montelukast 10 mg tablet 10 mg PO DAILY 04/06/24 04/06/24 History niacin 500 mg capsule,extended 500 mg PO DAILY 04/06/24 04/06/24 History release paroxetine HCl 20 mg tablet 20 mg PO DAILY 04/06/24 04/06/24 History potassium chloride 10 mEq 10 meq PO DAILY 04/06/24 04/06/24 History tablet,extended release (Klor-Con) Allergies Allergy/AdvReac Type Severity Reaction Status Date / Time clarithromycin Allergy Unknown Unknown Verified 04/06/24 09:39 Exam Narrative Exam Narrative: Guillermo Smith MD personally performed the services described in this documentation, as scribed by Jane Farris RDMS in my presence and it is both accurate and complete. Jane Smith RDMS, am scribing for, and in the presence of, Dr. Guillermo Gurrola and in the presence of the patient. Constitutional Documenting provider has reviewed patient's vital signs: yes Common normals: oriented x3 Nutritional appearance: overweight Lymph Lymphatic: no lymphedema noted Cardio Peripheral pulses: posterior tibial pulses present and dorsalis pedis pulses present Extremity General: calf tenderness, edema and other findings Right lower extremity: lower leg Right lower leg: inspection and palpation Left lower extremity: lower leg Left lower leg: inspection and palpation Neuro Common normals: oriented x3 Results Imaging Venous US: Radiologist's impression: Improvement of right leg DVT. Chemically induced thrombus in multiple varicose veins in left leg. Guillermo Smith MD personally performed the services described in this documentation, as scribed by Jane Farris RDMS in my presence and it is both accurate and complete. Jane Smith RDMS am scribing for, and in the presence of, Dr. Guillermo Gurrola and in the presence of the patient. Assessment and Plan Assessment and Plan (1) Phlebitis and thrombophlebitis of superficial vessels of lower extremities, bilateral: Plan Patient is to discontinue Eliquis and is finished with treatment at this time. Follow up as needed or in 1-2 years. Guillermo Smith MD personally performed the services described in this documentation, as scribed by Jane Farris RDMS in my presence and it is both accurate and complete. Jane Smith RDMS, am scribing for, and in the presence of, Dr. Guillermo Gurrola and in the presence of the patient.
--- NOTE | 2024-08-30 10:08 | W.VEIN ---
Discharge Plan Discharge Disposition: Home, Self-Care Discharge Medications: No Action amiloride 5 mg tablet 5 mg PO DAILY amlodipine 10 mg tablet 10 mg PO DAILY aspirin 325 mg tablet 325 mg PO DAILY carvedilol [Coreg] 25 mg tablet 25 mg PO BID Rx Instructions: must administer with a meal/food doxazosin [Cardura] 4 mg tablet 4 mg PO QPM finasteride 5 mg tablet 5 mg PO DAILY hydralazine .Route DAILY hydrochlorothiazide 25 mg tablet 25 mg PO DAILY losartan 100 mg tablet 100 mg PO DAILY lovastatin 30 mg PO QAM montelukast 10 mg tablet 10 mg PO DAILY niacin 500 mg capsule, extended release 500 mg PO DAILY paroxetine HCl 20 mg tablet 20 mg PO DAILY potassium chloride [Klor-Con 10] 10 mEq tablet extended release 10 meq PO DAILY Follow Up Appointments: 1-2 Years Print Language: Tamazight Discharge Date/Time: 08/30/24 10:08
== END 2024-08-30 10:08 | disposition home or self-care (01) ==
PROVIDERS: PCP Radiology Diagnostic Radiology; Visit Provider Radiology Diagnostic Radiology
DX: I80.01 Phlebitis and thrombophlebitis of superficial vessels of right lower extremity (principal)
CPT/HCPCS: 93970; G0463